=== PATIENT | male | born 1945 | race Caucasian/White ===

== ENCOUNTER 2020-03-03 16:45 | Emergency (ER) | payer OTHER, SELFPAY ==
[2020-03-03 16:46] VITALS: BP 129/77; PULSE 79; RESP 16; TEMP 36.3; O2SAT 98; BMI 29.2
[2020-03-03 16:47] VITALS: BP 129/77; PULSE 81; RESP 16; TEMP 36.3; O2SAT 98
--- NOTE | 2020-03-03 17:00 | RAD_ITS ---
STUDY: X-RAY CHEST REASON FOR EXAM: Male, 74 years old. TESTED POSITIVE FOR COVID A WEEK AGO. INCREASED SOB. TECHNIQUE: Single frontal view of the chest. COMPARISON: 06/07/2010 FINDINGS: Calcified granuloma right apex. The lungs are clear and expanded. There is no demonstrated pleural abnormality. Normal size heart. Normal mediastinum and nupur. Normal visualized pulmonary arteries. Normal visualized aortic arch and descending thoracic aorta. Normal visualized thoracic spine. Normal visualized ribs, clavicles, and shoulders. There is no demonstrated abnormality of the visualized soft tissue structures of the upper abdomen. RAD/Chest 1 View IMPRESSION: No acute disease Electronically Signed: Spenser Lam MD at 17:21 EST , Service support ,
--- NOTE | 2020-03-03 17:12 | EKG12_ITS ---
Test Reason : Blood Pressure : / mmHG Vent. Rate : 073 BPM Atrial Rate : 073 BPM P-R Int : 162 ms QRS Dur : 084 ms QT Int : 390 ms P-R-T Axes : 024 008 019 degrees QTc Int : 429 ms Normal sinus rhythm Normal ECG Confirmed by LULA REYNOSO, KRYSTAL ([id number]), medical editor GABRIELA MOYA ([id number]) on 03/04/2020 12:06:50 PM Referred By: PC Confirmed By:JYOTI COTTON MD
--- NOTE | 2020-03-03 17:29 | ED.VIS.GEN ---
History of Present Illness Chief Complaint: Cough Informant: Patient Onset: Weeks Maximum Severity: Mild Narrative: Cough chest congestion Covid positive for about 10 days Patient reports about 10 to 14 days ago he had a cough shortness of breath was seen at an outside facility reports he was found to be Covid positive he was discharged home and did not require admission. He did well at home, he indicates he is had slightly more cough and shortness of breath and he wanted to be evaluated today. He has had no fever he is eating and drinking well he has no exertional dyspnea, he has hypertension diabetes that are well controlled he does not feel as if he requires admission in fact he wants to go home but family wanted him evaluated Past Medical History - Allergies and Home Meds Allergies/Adverse Reactions: Allergies No Known Allergies Allergy (Verified 03/03/20 16:48) Primary Care Physician: Yrn Ruiz III, MD [Primary Care Provider] - Past Medical History: - Smoking Status: Never smoker Review of Systems ROS: - Includes as above General: Denies: Chills, Fever, Sweats Eyes: Denies: Visual changes - bilaterally, Diplopia ENT: Denies: Rhinorrhea, Sore throat Cardiovascular: Denies: Chest pain, Palpitations Respiratory: Reports: Dyspnea, Cough. Denies: Dyspnea on exertion Gastrointestinal: Denies: Abdominal pain, Nausea, Vomiting, Diarrhea, Melena, Hematochezia Genitourinary: Denies: Dysuria, Hematuria, Frequency Musculoskeletal: Denies: Back pain, Extremity Pain Skin: Denies: Rash, Wounds Neurological: Denies: Headache, Weakness, Numbness Physical Exam Vital Signs/Narrative: Vital Signs Temp Pulse Resp BP Pulse Ox 03/03/20 16:47 97.4 F L 81 16 129/77 H 98 03/03/20 16:46 97.4 F L 79 16 129/77 H 98 General: Well nourished, Well developed, No Acute Distress Head: Normocephalic, Atraumatic Eyes: Perrl, EOMI ENT: Moist mucous membranes, No rhinorrhea Neck: Supple, Nontender Cardiovascular: Regular rate, Regular rhythm, No murmurs Respiratory: No distress, CTA bilaterally, Chest nontender Abdomen: Soft, Nontender, Nondistended, Normal bowel sounds Back: Nontender, Normal Inspection Extremities: Nontender, No edema Skin: Normal color, No rash Neurological: Alert, Oriented x3, Cranial nerves II-XII grossly intact, Normal Strength, Normal Sensation Psychological: Normal affect, Normal Mood Diagnostic/Tx/Re-eval - Medical Decision Making Patient is in no distress he is afebrile his vital signs are unremarkable his pulse ox within normal range she speaking in full sentences he assures me he feels fine but he wants evaluation based on concerns of family, at this time screening labs chest x-ray observation Patient's ED screening evaluation labs are all generally unremarkable except his creatinine is 1.6 no others are available for review, his chest x-ray is unremarkable on reevaluation he states again he feels fine he wants to go home given that he is known to be Covid positive that he states he is eating and drinking well passing normal amounts of urine and stool I do not believe he would benefit from fluid bolus, he wants to go home to follow-up with outpatient providers and return for change in symptoms Home stable declined admission Final impression COVID-19 infection with prior positive study, cough ED Disposition - Plan for ED Patient: Disposition: Home or Assisted Living Diagnosis: COVID-19 virus infection Instructions: ED Upper Resp Infec Abx Tx Prescriptions: Albuterol Inhaler [Ventolin Hfa] 1 - 2 puff INHALATION Q4H PRN PRN #1 inhaler PRN Reason: Wheezing Prescription Printed Referrals: Yrn Ruiz III, MD [Primary Care Provider] -
[2020-03-03 17:45] LABS: Hemoglobin 12.3 g/dL (13.0-16.5); Mean Corp Hgb Conc 33.2 g/dL (32-36); Mean Corpuscular Hgb 29.9 pg (27.0-32.0); Mean Corpuscular Volume 89.8 fL (80-94); Mean Platelet Vol. 10.1 fl (6.2-12.0); POSITIVE COUNT YES; POSITIVE MORPHOLOGY YES; Platelet Count 195 K/mm3 (150-450); RBC Distribution Width CV 12.6 % (11.6-14.6); RBC Distribution Width SD 41.4 fl (35.1-43.9); Red Blood Count 4.12 M/mm3 (4.6-6.2)
[2020-03-03 17:59] LABS: Anion Gap 6 (5-15); BUN 28 mg/dL (7-18); BUN/Creat Ratio 17.2 RATIO (10-20); Calcium,Total 8.9 mg/dL (8.5-10.1); Chloride 105 mmol/L (98-107); Creatinine, Serum 1.63 mg/dL (0.70-1.30); Differential Indicated MANUAL DIFF; EST Glomerular Filtration Rate 44 mL/min (>60); Est Glom Filt Rate - Afr Amer 53 mL/min (>60); Estimated Creatinine Clearance 33.54 ml/min; Glucose 93 mg/dL (74-106); Potassium 4.6 mmol/L (3.5-5.1); Sodium Level 135 mmol/L (136-145)
[2020-03-03 18:21] LABS: Eosinophil 2 % (0-5); Lymphocyte 28 % (19-41); Metamyelocyte 1 % (0-1); Monocyte 14 % (0-10); Neutrophil-Band 8 % (0-5); Neutrophil-Segmented 47 % (47-70); Total Cells Counted 100 (MANUAL DIFF)
[2020-03-03 18:22] LABS: Absolute Lymphocyte Count 1.68 X10^3/uL (0.83-4.51); Lymphocyte # 1.68 X10^3/ul (4.0); Neutrophil # 4.95 X10^3/uL (2.7-7.7)
[2020-03-03 18:23] LABS: Reactive Lymphocyte RARE
[2020-03-03 18:24] LABS: Platelet Estimate ADEQUATE (ADEQ)
[2020-03-03 18:51] LABS: BNP,B-Type NATRIURETIC PEPTIDE 19.9 pg/mL (0-100)
[2020-03-03 18:58] VITALS: BP 113/60; PULSE 70; RESP 17; O2SAT 94
[2020-03-03 19:26] VITALS: BP 121/72; PULSE 70; RESP 18; O2SAT 95
[2020-03-04 13:03] LABS: Pathologist Review Reviewed
== END 2020-03-03 19:55 | disposition home or self-care (01) ==
PROVIDERS: Emergency Provider Emergency Medicine; PCP Family Medicine
DX: U07.1 COVID-19 (principal)
CPT/HCPCS: 71045; 80048; 83880; 84484; 85025; 93005; 99284; A4216

== ENCOUNTER → 2023-05-21 | Outpatient (CLI) | payer SELFPAY, OTHER ==
--- OUTSIDE RECORDS SUMMARY | 2023-05-21 16:50 | XMS RPT_ITS | CCD ---
Author Name Unknown Address [address] [facility] [address] [place] [address] Organization [facility] Care Team Providers Care Project Hire Name Role Phone SEFERINO YAO MD Primary Care Physician SEFERINO YAO MD Consulting Unavailable ORTIZ NORMAN Attending Unavailable ORTIZ NORMAN Primary Care Unavailable ORTIZ NORMAN Admitting Unavailable PROVIDER, UNKNOWN Consulting Unavailable PROVIDER, UNKNOWN Consulting Unavailable SEFERINO YAO MD Primary Care Unavailable SEFERINO YAO MD Attending Unavailable SEFERINO YAO MD Attending Unavailable SEFERINO YAO MD Primary Care Unavailable SEFERINO YAO MD Attending Unavailable SEFERINO YAO MD Primary Care Unavailable Medications Current Medications Medication Drug Class(es) Dates Sig (Normalized) Sig (Original) albuterol MDI (90 mcg/inh) CFC free inhalation aerosol (1 source) Start: 07-11-2021 take 2 puff(s) by inhalation every four hours as needed for wheezing albuterol MDI (90 mcg/inh) CFC free inhalation aerosol 2 puff(s), Inhalation, q4h, PRN as needed for wheezing, # 18 gram(s), 0 Refill(s), Pharmacy: [facility], Acute bronchitis, kg, 07/11/21 15:32:00 EDT, Dosing Weight Start Date: 07/11/21 Status: Ordered amLODIPine 10 mg oral tablet (5 sources) Dihydropyridine Calcium Channel Yue Start: 05-04-2022 End: 04-29-2023 amLODIPine 10 mg oral tablet Dose : 10 mg = 1 tab(s), Oral, Daily, Take 1 tablet by mouth once daily., # 90 tab(s), 3 Refill(s), Pharmacy: [id number], 161.5, cm, 05/04/22 9:58:00 EST, Height, kg, 05/04/22 9:58:00 EST, Dosing Weight Start Date: 05/04/22 Stop Date: 04/29/23 Status: Ordered Problems Problem Classification Problem Date Documented Da te Episodic/Chronic Acquired foot deformities (4 sources) Foot-drop; Translations: [Foot drop, left foot] Episodic Diabetes mellitus without complication (5 sources) Type 2 diabetes mellitus; Translations: [Type 2 diabetes mellitus without complication] 07-15-2021 Chronic Essential hypertension (5 sources) Hypertensive disorder; Translations: [Essential hypertension] 07-15-2021 Chronic Heart valve disorders (2 sources) Heart murmur 11-02-2022 Episodic Other connective tissue disease (2 sources) Foot pain 11-02-2022 Episodic Other connective tissue disease (1 source) Cramp in lower limb 02-15-2023 Episodic Other ear and sense organ disorders (3 sources) Hearing loss of right ear 05-04-2022 Chronic Other nervous system disorders (1 source) Mononeuropathy of lower limb; Translations: [Unspecified mononeuropathy of left lower limb] Chronic Other nervous system disorders (3 sources) Left leg peripheral neuropathy 08-18-2021 Chronic Other non-traumatic joint disorders (2 sources) Knee pain 11-02-2022 Episodic Peripheral and visceral atherosclerosis (4 sources) Peripheral vascular disease; Translations: [Peripheral vascular disease, unspecified] Chronic Spondylosis; intervertebral disc disorders; other back problems (1 source) Spinal stenosis 02-15-2023 Episodic Results Test Name Value Interpretation Reference Range Facil ity Vital Signs Date Time Vital Sign Value Performing Clinician Eileen champagne 08-14-2021 03:00-0400 Diastolic blood pressure 48 mm[Hg] DR SHAUNA CHOWDARY DO [facility] 08-14-2021 03:00-0400 Mean blood pressure 77 mm[Hg] DR SHAUNA CHOWDARY DO [facility] 08-14-2021 03:00-0400 Systolic blood pressure 136 mm[Hg] DR SHAUNA CHOWDARY DO [facility] 08-14-2021 02:11-0400 Diastolic blood pressure 66 mm[Hg] DR SHAUNA CHOWDARY DO [facility] 08-14-2021 02:11-0400 Heart rate 100 /min DR SHAUNA CHOWDARY DO [facility] 08-14-2021 02:11-0400 Mean blood pressure 95 mm[Hg] DR SHAUNA CHOWDARY DO [facility] 08-14-2021 02:11-0400 Respiratory rate 14 /min DR SHAUNA CHOWDARY DO [facility] 08-14-2021 02:11-0400 Systolic blood pressure 153 mm[Hg] DR SHAUNA CHOWDARY DO [facility] 08-14-2021 01:15-0400 Body temperature 97.7 [degF] DR SHAUNA CHOWDARY DO [facility] 08-14-2021 01:15-0400 Diastolic blood pressure 76 mm[Hg] DR SHAUNA CHOWDARY DO [facility] 08-14-2021 01:15-0400 Heart rate 98 /min DR SHAUNA CHOWDARY DO [facility] 08-14-2021 01:15-0400 Mean blood pressure 96 mm[Hg] DR SHAUNA CHOWDARY DO [facility] 08-14-2021 01:15-0400 Respiratory rate 10 /min DR SHAUNA CHOWDARY DO [facility] 08-14-2021 01:15-0400 Systolic blood pressure 136 mm[Hg] DR SHAUNA CHOWDARY DO [facility] Encounters Encounter Date Encounter Type Care Provider Facility Start: 05-11-2023 End: 05-11-2023 ambulatory SEFERINO REYNOSO [facility] Start: 03-30-2023 End: 03-31-2023 ambulatory SEFERINO YAO MD Facility:B Start: 03-30-2023 End: 03-30-2023 Patient encounter procedure SEFERINO YAO MD [facility] Start: 11-09-2022 End: 11-10-2022 ambulatory SEFERINO YAO MD Facility:B Start: 11-09-2022 End: 11-09-2022 Patient encounter procedure SEFERINO YAO MD [facility] Start: 10-26-2022 End: 10-27-2022 ambulatory SEFERINO YAO MD Facility:B Start: 10-26-2022 End: 10-26-2022 Patient encounter procedure SEFERINO YAO MD [facility] Start: 08-14-2021 End: 08-14-2021 Emergency department patient visit DR SHAUNA CHOWDARY DO [facility] Start: 04-07-2021 End: 04-07-2021 Patient encounter procedure SEFERINO YAO MD [facility] Procedures Date Procedure Procedure Detail Performing Clinician Appendectomy SEFERINO Triana Arthroplasty of knee SEFERINO YAO MD Back structure, excl uding neck (body structure) SEFERINO YAO MD Immunizations Immunization Date Immunization Notes Care Provider Fa cility 09-07-2020 SARS-CoV-2 mRNA (tozinameran) vaccine SEFERINO YAO MD [facility] 08-18-2020 SARS-CoV-2 mRNA (tozinameran) vaccine SEFERINO YAO MD [facility] Payers Date Payer Category Payer Unknown [id number] 1945 Unknown [id number] 1945 Unknown [id number] [id number] 1945 Unknown [id number] 1945 Unknown [id number] [id number] Unknown 130 Social History Date Type Detail Facility Start: 04-05-2021 Never smoked t obacco (finding) [facility] Sex Assigned At [facility] Functional Status Date Assessment Result Facility 08-14-[address] [facility] 08-14-[address] [facility] Mental Status Date Assessment Result Facility 08-14-2021 Mental Status [facility] 08-14-2021 Mental Status [facility] Evaluation + Plan note 03-29-2023 Radiology Note Date & Type Note Facility 03-29-2023 Evaluation + Plan note Future Scheduled TestsMRI Spine Lumbar w/ + w/o Contrast 03/29/23 [facility] Hospital Discharge instructions 08-14-2021 Note Date & Type Note Facility 08-14-2021 Hospital Discharg e instructions Patient Education 08/14/2021 04:07:44 Benign Paroxysmal Positional Vertigo Benign Paroxysmal Positional Vertigo Benign paroxysmal positional vertigo is a common condition. You feel as if the room is spinning after changing position, moving your head quickly, or even just rolling over in bed. Vertigo is a false feeling of motion plus disorientation that makes it seem as though the room is spinning. A vertigo attack may cause sudden nausea, vomiting, and heavy sweating. Severe vertigo causes a loss of balance. You may even fall down. Vertigo is caused by a problem with the inner ear. The inner ear is located behind the middle ear. It is a part of the balance center of the body. It contains small calcium particles within fluid-filled canals (semi-circular canals). These particles can move out of position. This may happen as a result of aging, head injury, or disease of the inner ear. Once that happens, moving your head in certain ways may cause the particles to stimulate the inner ear. This creates the feeling of vertigo. An episode of vertigo may last seconds, minutes, or hours. Once you are over the first episode of vertigo, it may never return. Sometimes symptoms return off and on for several weeks or longer. Home care Follow these guidelines when caring for yourself at home: Rest quietly in bed if your symptoms are severe. Change position slowly. There is usually 1 position that will feel best. This might be lying on 1 side or lying on your back with your head slightly raised on pillows. Until you have no symptoms, you are at a higher risk of falling. Let someone help you when you get up. Get rid of home hazards such as loose electrical cords and throw rugs. Don t walk in unfamiliar areas that are not lighted. Use night lights in bathrooms and kitchen areas. Do not drive or work with dangerous machinery for 1 week after symptoms go away. This is in case symptoms return suddenly. Take medicine as prescribed to relieve your symptoms. Unless another medicine was prescribed for nausea, vomiting, and vertigo, you may use [id number] motion sickness medicine. Examples of this include meclizine and dimenhydrinate. Follow-up care Follow up with your healthcare provider, or as directed. Tell your provider about any ringing in your ear or hearing loss. If you had a CT or MRI scan, a specialist will review it. You will be told of any new findings that may affect your care. When to seek medical advice Call your healthcare provider right away if any of these occur: Vertigo gets worse even after taking prescribed medicine Repeated vomiting even after taking prescribed medicine Weakness that gets worse Fainting Severe headache or unusual drowsiness or confusion Weakness of an arm or leg or 1 side of the face Trouble walking Trouble with speech or vision Seizure Trouble hearing Fever of 100.4 F (38 C) or higher, or as directed by your healthcare provider Fast heart rate Chest pain [id number] [employer]. [address] [place] [address]. All rights reserved. This information is not intended as a substitute for professional medical care. Always follow your healthcare professional's instructions. Follow Up Care 08/14/2021 01:16:15 With:CASSY THOMPSON DO Address: When:2-4 days With:SEFERINO YAO MD Address:Unknown When:2-4 days [facility] Clinical Note 03-04-2021 Note Date & Type Note Facility 03-04-2021 Note Patient Outreach (BRANDT TNAV) CINDY CAT ([id number]) 1945 M Date Time Provider Department 03/04/21 YOSEF PARKS During your visit today, we recorded the following information about you: Yosefolivier Parks Population Health Navigator 03/04/2021 11:12 AM Signed POPULATION HEALTH NAVIGATION OUTREACH Action/FYI I left a voice message re: pcp No care everywhere Contact made with patient or family member? NO Pt identified by name and : NO Outreach Outcome/Action Unable to reach patient: Left message Reason for Outreach Attribution: Provider Off-boarding Payer: No coverage found. Care Gap Reviewed:: Reminder: Reminder note to check Health Maintenance for items below Health Maintenance items due: COVID-19 VACCINE(1) Never done HEPATITIS C SCREENING Never done SHINGRIX VACCINE(1 of 2) Never done DTAP,TDAP,TD(2 - Tdap) due on 08/30/2015 DEPRESSION SCREENING due on 06/04/2018 DILATED RETINAL EXAM due on 07/18/2019 HBA1C due on 08/05/2020 INFLUENZA(1) due on 12/29/2020 ANNUAL PCP TEAM CHRONIC DISEASE VISIT due on 02/11/2021 BP CONTROLLED (<130/80) due on 02/11/2021 URINE ALBUMIN:CREATININE RATIO due on 02/04/2021 LDL CHOLESTEROL due on 02/04/2021 DIABETIC FOOT EXAM due on 02/11/2021 Advanced Directives Completed: Have you ever planned for future healthcare decisions with a power of geriatrics physician, living will, or advance directives? No. Please bring a copy to your next appointment or email to [email or web address] Referrals: N/A Message Sent to Practice: NO Navigation Signature: Yosef Parks Population Health Navigator March 04, 2021 11:11 AM Allergies As of Date: 03/04/2021 (No Known Allergies) Date Reviewed: 02/12/2020 [facility]ed by: [facility] LAUREN Jefferson - Fully Assessed Reason for Visit: Population Health Navigation Outreach [3910] Cmt: Offboarding Prescriptions as of 03/04/2021 - metFORMIN (GLUCOPHAGE) 500 mg tablet Take 1 tablet by mouth daily with dinner. - lisinopril (ZESTRIL, PRINIVIL) 20 mg tablet Take 1 tablet by mouth once daily. - hydroCHLOROthiazide 12.5 mg capsule Take 1 capsule by mouth once daily. - glimepiride (AMARYL) 2 mg tablet Take 1 tablet by mouth daily with breakfast. - atorvastatin (LIPITOR) 40 mg tablet Take 1 tablet by mouth once daily. For cholesterol. - spironolactone (ALDACTONE) 25 mg tablet Take 1 tablet by mouth once daily. - amLODIPine (NORVASC) 10 mg tablet Take 1 tablet by mouth once daily. - sildenafil (VIAGRA) 100 mg tablet Take 1 tablet by mouth as needed. TAKE 30-60 MINUTES BEFORE SEXUAL INTERCOURSE NEEDED. - CINNAMON BARK (CINNAMON ORAL) Take 2,000 mg by mouth twice daily. 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 Lumbar Disc Herniation with Radiculopathy [M51.*12/13/2009 Personal history of colonic polyps [Z86.010] 07/01/2012 Hyperlipidemia associated with type 2 diabetes *10/01/2013 Post-traumatic osteoarthritis of right knee [M1*11/25/2014 Senile cataract [H25.9] 02/01/2015 Vitreous floaters of both eyes [H43.393] 02/01/2015 Essential hypertension [I10] 02/01/2015 Controlled type 2 diabetes mellitus without com*07/17/2017 COVID-19 [U07.1] 02/24/2020 Encounter Status:Closed by TO POPULATION HEALTH NAVIGYOSEF MARTI on 03/04/21 [facility] Progress note 03-04-2021 Note Date & Type Note Facility 03-04-2021 Note HNO ID: [id number] Author: Yosef Gomez Health Navigdonya Service: ? Author Type: ? Type: Progress Notes Filed: 03/04/2021 11:12 AM Note Text: POPULATION HEALTH NAVIGATION OUTREACH Action/FYI I left a voice message re: pcp No care everywhere Contact made with patient or family member? NO Pt identified by name and : NO Outreach Outcome/Action Unable to reach patient: Left message Reason for Outreach Attribution: Provider Off-boarding Payer: No coverage found. Care Gap Reviewed:: Reminder: Reminder note to check Health Maintenance for items below Health Maintenance items due: COVID-19 VACCINE(1) Never done HEPATITIS C SCREENING Never done SHINGRIX VACCINE(1 of 2) Never done DTAP,TDAP,TD(2 - Tdap) due on 08/30/2015 DEPRESSION SCREENING due on 06/04/2018 DILATED RETINAL EXAM due on 07/18/2019 HBA1C due on 08/05/2020 INFLUENZA(1) due on 12/29/2020 ANNUAL PCP TEAM CHRONIC DISEASE VISIT due on 02/11/2021 BP CONTROLLED (<130/80) due on 02/11/2021 URINE ALBUMIN:CREATININE RATIO due on 02/04/2021 LDL CHOLESTEROL due on 02/04/2021 DIABETIC FOOT EXAM due on 02/11/2021 Advanced Directives Completed: Have you ever planned for future healthcare decisions with a power of geriatrics physician, living will, or advance directives? No. Please bring a copy to your next appointment or email to [email or web address] Referrals: N/A Message Sent to Practice: NO Navigation Signature: Yosef Parks Population Health Navigator March 04, 2021 11:11 AM [facility] Clinical Note 10-18-2020 Note Date & Type Note Facility 10-18-2020 Note Patient Outreach (AC CC) CINDY CAT ([id number]) 1945 M Date Time Provider Department 10/18/20 NO PCP [facility] During your visit today, we recorded the following information about you: Zoila James 10/18/2020 11:42 AM Signed POPULATION HEALTH NAVIGATION OUTREACH Action/FYI PT has no VM or My Chart CORINA Contact made with patient or family member? NO Pt identified by name and : NO Outreach Outcome/Action Unable to reach patient: Phone number not valid / voicemail full Reason for Outreach Care Gap or Scheduling/Wellness visits Payer: No coverage found. Care Gap Reviewed:: Colorectal Cancer Screening Diabetic Eye Exam Reminder: Reminder note to check Health Maintenance for items below Health Maintenance items due: COVID-19 VACCINE(1) Never done DEPRESSION SCREENING due on 06/04/2018 DILATED RETINAL EXAM due on 07/18/2019 HBA1C due on 08/05/2020 : Zoila Jacksonrk October 18, 2020 11:41 AM Allergies As of Date: 10/18/2020 (No Known Allergies) Date Reviewed: 02/12/2020 Reviewed by: Terri ([facility]) LAUREN Jefferson - Fully Assessed Reason for Visit: Population Health Navigation Outreach [3910] Cmt: deferred care Prescriptions as of 10/18/2020 Sig: HYDROCHLOROTHIAZIDE 12.5 MG C* Take 1 capsule by mouth once * GLIMEPIRIDE 2 MG TABLET Take 1 tablet by mouth daily * ATORVASTATIN 40 MG TABLET Take 1 tablet by mouth once d* SPIRONOLACTONE 25 MG TABLET Take 1 tablet by mouth once d* AMLODIPINE 10 MG TABLET Take 1 tablet by mouth once d* LISINOPRIL 20 MG TABLET Take 1 tablet by mouth once d* METFORMIN 500 MG TABLET Take 1 tablet by mouth daily * SILDENAFIL 100 MG TABLET Take 1 tablet by mouth as nee* CINNAMON ORAL Take 2,000 mg by mouth twice * Problem List As Of Date 10/18/2020 Noted Resolved Nontraumatic rupture of other tendons of foot a*07/10/2006 10/01/2013 Closed fracture of calcaneus [S92.009A] 07/10/2006 10/01/2013 HYPERLIPIDEMIA NEC/NOS [E78.5] 09/10/2006 10/01/2013 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 Lumbar Disc Herniation with Radiculopathy [M51.*12/13/2009 Personal history of colonic polyps [Z86.010] 07/01/2012 Hyperlipidemia associated with type 2 diabetes *10/01/2013 Post-traumatic osteoarthritis of right knee [M1*11/25/2014 Senile cataract [H25.9] 02/01/2015 Vitreous floaters of both eyes [H43.393] 02/01/2015 Essential hypertension [I10] 02/01/2015 Controlled type 2 diabetes mellitus without com*07/17/2017 COVID-19 [U07.1] 02/24/2020 Encounter Status:Closed by ZOILA BREWER on 10/18/20 [facility] Progress note 10-18-2020 Note Date & Type Note Facility 10-18-2020 Note HNO ID: [id number] Author: Zoila James Service: ? Author Type: ? Type: Progress Notes Filed: 10/18/2020 11:42 AM Note Text: POPULATION HEALTH NAVIGATION OUTREACH Action/FYI PT has no VM or My Chart CORINA Contact made with patient or family member? NO Pt identified by name and : NO Outreach Outcome/Action Unable to reach patient: Phone number not valid / voicemail full Reason for Outreach Care Gap or Scheduling/Wellness visits Payer: No coverage found. Care Gap Reviewed:: Colorectal Cancer Screening Diabetic Eye Exam Reminder: Reminder note to check Health Maintenance for items below Health Maintenance items due: COVID-19 VACCINE(1) Never done DEPRESSION SCREENING due on 06/04/2018 DILATED RETINAL EXAM due on 07/18/2019 HBA1C due on 08/05/2020 : Zoila James October 18, 2020 11:41 AM [facility] Evaluation + Plan note Note Date & Type Note Facility Evaluation + Plan note No data available for this section [facility] Evaluation + Plan note Note Date & Type Note Facility Evaluation + Plan note Future Appointments Appointment Date:11/02/2022 10:30:00 AM Scheduled Provider:SEFERINO YAO MD Location:[facility] Appointment Type:PC OV [facility] Hospital Discharge instructions Note Date & Type Note Facility Hospital Discharge instructions No data available for this section [facility] Progress note Note Date & Type Note Facility Progress note No data available for this section [facility] Summary Purpose Family History No Family History Records Found No data available for this section No Family History Records FoundNo Family History Records FoundNo Family History Records Found Advance Directives No Advanced Directives Records FoundNo Advanced Directives Records FoundNo Advanced Directives Records FoundNo Advanced Directives Records Found Additional Source Comments (unrecognized sect ion and content) No Status Records FoundNo Status Records FoundNo Status Records FoundNo Status Records Found INFORMATION SOURCE (unrecogn ized section and content) DATE CREATED AUTHOR AUTHOR'S ORGANIZ ATION 04/26/2023 [facility] DATE CREATED AUTHOR AUTHOR'S ORGANIZ ATION 05/12/2023 [facility] DATE CREATED AUTHOR AUTHOR'S ORGANIZ ATION 05/16/2023 [facility] ([place] Care Team (unrecognized sect ion and content) Personnel Name: SEFERINO YAO MD Address: [address] [place] [address]- Care Team Personnel Name: SEFERINO YAO MD Position: P4 Physician - Primary Care Member Role: Primary Care Physician Address: Address: [address] [place] [address] Care Team Related Persons Name: CRISTOBAL NUNES Address: Home [address] [place] [address] [phone] Address: Temporary [address] [place] [address] [phone] Name: FRANCESCA CAT Care Team Personnel Name: SEFERINO YAO MD Position: P4 Physician - Primary Care Member Role: Primary Care Physician Address: Address: [address] [place] [address] Care Team Related Persons Name: MANJU CRISTOBAL Address: Home [address] [place] [address] [phone] Address: Temporary [address] [place] [address] [phone] Name: FRANCESCA CAT Care Team Personnel Name: SEFERINO YAO MD Position: P4 Physician - Primary Care Member Role: Primary Care Physician Address: Address: [address] [place] [address] Care Team Related Persons Name: MANJU CRISTOBAL Address: Home [address] [place] [phone] Address: [address] [phone] Name: FRANCESCA CAT FOR RECORDS PERTAINING TO PATIENTS WHO ARE OR HAVE BEEN ENROLLED IN A CHEMICAL DEPENDENCY/SUBSTANCEABUSE PROGRAM, SOME INFORMATION MAY BE OMITTED. This clinical summary was aggregated from multiple sources. Caution should be exercised in using it in the provision of clinical care. This summary normalizes information from multiple sources, and as a consequence, information in this document may materially change the coding, format and clinical context of patient data. In addition, data may be omitted in some cases. CLINICAL DECISIONS SHOULD BE BASED ON THE PRIMARY CLINICAL RECORDS. [employer] [facility]. provides no warranty or guarantee of the accuracy or completeness of information in this document.
--- NOTE | 2023-05-21 17:00 | CT_ITS ---
STUDY: CT LUMBAR SPINE WITH CONTRAST REASON FOR EXAM: Male, 77 years old. Chronic low back pain. History of prior lumbar surgery. RADIATION DOSAGE (If Supplied By Facility): CTDIvol = ( 17.40 ) mGy, DLP = ( 601.27 ) mGycm TECHNIQUE: The patient was scanned in a multi detector CT scanner. High resolution transaxial imaging was performed following the intravenous administration of IV 100mL Isovue-300. Images were obtained from L1 to S1 vertebral level. Sagittal and coronal images were reconstructed. Individualized dose optimization techniques were used for this CT. COMPARISON: Comparison is made with prior radiographs dated May 02, 2023. FINDINGS: Mild degree of increased markings at the lung bases suggestive of atelectasis. Normal lumbar lordosis. There is no substantial scoliosis. Multilevel spondylosis. L1-2: Mild degree of disc space narrowing and disc degeneration. Mild degree of spondylosis. L2-3: Moderate degree of disc space narrowing and disc degeneration. Facet joint osteoarthritis and hypertrophy. Bilateral neural foraminal stenosis left greater than right. L3-4: Moderate degree of disc space narrowing. Spondylosis. Facet joint osteoarthritis. Mild degree of bilateral neural foraminal stenosis right greater than left. L4-5: Marked degree of disc space narrowing. Grade 2 anterior listhesis of L4 on L5 due to facet joint osteoarthritis and hypertrophy. 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 Moderate to marked degree of central canal stenosis due to the anterolisthesis. Bilateral neural foraminal stenosis. L5-S1: Marked degree of disc space narrowing and disc degeneration. Spondylosis. Facet joint osteoarthritis. Atherosclerotic calcification of the abdominal aorta. Degenerative changes of the sacroiliac joints bilaterally. CT/Spine Lumbar WITH Contrast IMPRESSION: Multilevel degenerative changes, as described above. Anterolisthesis of L4 on L5 due to spondylolysis of the pars interarticularis causing a marked degree of central canal stenosis. Electronically Signed: Sidney Brock MD at 13:44 EST ,
[2023-05-21 17:16] LABS: CREATININE FINGERSTICK 1.4 mg/dL (0.70-1.30)
== END | disposition home or self-care (01) ==
PROVIDERS: PCP Family Medicine; Referring Provider Orthopaedic Surgery; Visit Provider Orthopaedic Surgery
DX: M48.061 Spinal stenosis, lumbar region without neurogenic claudication (principal)
CPT/HCPCS: 72132; Q9967

== ENCOUNTER 2024-10-21 22:39 | Observation (INO) | payer OTHER, SELFPAY ==
[2024-10-21 22:44] VITALS: BP 163/86; PULSE 69; RESP 18; TEMP 36.9; O2SAT 97; BMI 29.7
--- NOTE | 2024-10-21 23:01 | ED.VIS.CHEST ---
HPI History of Present Illness Chief Complaint: Chest Pain Informant: patient Onset/Context/Timing Onset: Today and Hours (3) Activity at onset: gradual Timing: Continuous Quality: Positive for Aching Location: Left Chest and - (Left arm) Worsened By: Nothing Relieved By: Nothing Associated Symptoms: Positive for Nausea, Dyspnea and Cough; Negative for Vomiting, Diaphoresis, Fever, Lightheadedness, Acid Reflux or Palpitations Narrative Narrative: Patient presents with left-sided chest pain that began approximately 3 hours prior to arrival. Patient states it has improved. Patient states the pain was going down his left arm. Patient admits to some paresthesias in the fingers of his left hand. Patient states he still has some paresthesias. Patient states his pain has improved. Patient admits to some nausea but denies any vomiting. Patient admits to some shortness of breath and cough. Patient admits to some lightheadedness. CVD Risk Factors: Positive for Hypertension, Diabetes, Hypercholesterolemia and Family History 1' </=55; Negative for Smoking PE Risk Factors: Positive for Prior DVT or PE; Negative for Recent Travel/Surgery, Recent Immobilization, Cancer or OCP + Smoking + >/=35 [facility] Medical History History of venous thromboembolism CAD (coronary artery disease) HLD (hyperlipidemia) Spinal stenosis at L4-L5 level Low back pain Aortic valve disease Back pain Neck pain Hypertension Home Medications ?Medication ?Instructions ?Recorded ?Last Taken ?Type hydrochlorothiazide 25 mg tablet 25 mg PO DAILY 05/13/15 Unknown History lisinopril 20 mg tablet 20 mg PO DAILY 05/13/15 Unknown History glimepiride 4 mg tablet 4 mg PO DAILY 05/02/23 Unknown History amlodipine 5 mg tablet 5 mg PO DAILY 10/21/24 Unknown History apixaban 1 tab PO BID 10/21/24 Unknown History atorvastatin 40 mg tablet 40 mg PO QHS 10/21/24 Unknown History carvedilol 25 mg tablet 25 mg PO BID 10/21/24 Unknown History Allergy/AdvReac Type Severity Reaction Status Date / Time No Known Allergies Allergy Verified 10/21/24 22:40 Family History Mother Family history of heart attack Heart disease CAD (coronary artery disease) Hypertension Father Family history of heart attack Heart disease CAD (coronary artery disease) Hypertension Surgical History Hx of heart artery stent History of cholecystectomy History of back surgery History of appendectomy History of hernia repair Social History household members: spouse Smoking Status: Never smoker alcohol intake: never substance use type: does not use ROS ROS ED Constitutional Constitutional ED: Reports chills and fever(s) Eyes Eyes: Denies blurry vision or change in vision ENT ENT ED: Denies rhinorrhea or sore throat Cardiovascular Cardiovascular: Reports chest pain; Denies palpitations Respiratory/Chest Respiratory/Chest: Reports cough and dyspnea Gastrointestinal Gastrointestinal: Denies nausea or vomiting Genitourinary Genitourinary ED: Denies dysuria or hematuria Musculoskeletal Musculoskeletal: Denies back pain or neck pain Integumentary Denies abscess or rash Neurologic Neurologic: Reports paresthesias LUE (Left fingers); Denies headache(s) or weakness Allergic/Immunologic Allergic/Immunologic ED: Denies mouth swelling or urticaria EXAM Physical Exam Const Vital Signs: 10/21/24 22:44 10/21/24 22:44 10/21/24 23:21 Temperature 98.4 F Temperature Source Oral Pulse Rate 69 Respiratory Rate 18 Respiratory Effort Normal Non-Labored Respiratory Pattern Normal Blood Pressure 163/86 H Blood Pressure Mean 111 Pulse Ox 97 98 Oxygen Delivery Method Room Air Room Air 10/21/24 23:25 10/21/24 23:30 10/22/24 00:00 Temperature Temperature Source Pulse Rate 66 67 61 Respiratory Rate 18 16 Respiratory Effort Respiratory Pattern Blood Pressure 145/76 H 117/67 145/69 H Blood Pressure Mean 83 94 Pulse Ox 95 96 Oxygen Delivery Method Room Air Room Air 10/22/24 00:38 Temperature 97.8 F Temperature Source Pulse Rate 65 Respiratory Rate 16 Respiratory Effort Respiratory Pattern Blood Pressure 136/62 H Blood Pressure Mean 86 Pulse Ox 95 Oxygen Delivery Method Positive well nourished and well developed General Appearance ED: well developed and NAD HEENT Reports moist mucous membranes normocephalic Neck supple and no JVD Resp normal respiratory effort and clear to auscultation bilaterally Cardio regular rate and regular rhythm GI soft to palpation, non-tender and non-distended Neuro oriented x3, CN's II-XII intact bilaterally and no sensory deficits noted Sensorium / Orientation: awake and alert Motor Exam: strength 5/5 throughout Psych mental status grossly normal Heart Score History: Moderately Suspicious ECG: Nonspecific Repolarization Age: >/= 65 years Risk Factors: >/= 3 Risk Factors or History of CAD Troponin: >1 - <3 Normal Limit Score: 7 MDM MDM MDM Narrative Medical decision making narrative: Differential diagnosis includes cardiac dysrhythmia, cardiac ischemia, electrolyte abnormality, pneumonia, bronchitis, pulmonary embolism, gastroesophageal reflux disease, and anxiety. EKG will be obtained to assess for cardiac dysrhythmia and cardiac ischemia. Chest x-ray will be obtained to assess for pneumonia and bronchitis. CBC will be obtained to assess for leukocytosis and anemia. Basic metabolic profile will be obtained to assess for electrolyte abnormality and renal function. High-sensitivity troponin will be obtained to assess for cardiac ischemia. 2-hour repeat high-sensitivity troponin will be obtained to assess for ongoing cardiac ischemia. D-dimer will be obtained to assess for pulmonary embolism. Lab Data Attestation: I reviewed the patient's lab results. Lab results narrative: CBC was reviewed and was within normal limits. Basic metabolic profile was reviewed. Glucose was slightly elevated at 146. The remainder was essentially within normal limits. D-dimer was reviewed and was normal at 0.42. High-sensitivity troponin was reviewed and was elevated at 56. Labs: Laboratory Results - last 24 hr 10/21/24 10/22/24 22:53 00:53 WBC 8.3 RBC 4.46 L Hgb 13.2 Hct 38.3 L MCV 85.9 MCH 29.6 MCHC 34.5 RDW Std Deviation 39.8 RDW Coeff of Francy 12.6 Plt Count 141 L MPV 11.5 Immature Gran % (Auto) 1.000 H Neut % (Auto) 62.0 Lymph % (Auto) 25.4 Day % (Auto) 9.5 Eos % (Auto) 1.6 Baso % (Auto) 0.5 Absolute Neuts (auto) 5.2 Absolute Lymphs (auto) 2.12 Nucleated RBC % 0 D-Dimer Quant (PE/DVT) 0.42 Sodium 139 Potassium 3.6 Chloride 102 Carbon Dioxide 24.7 Anion Gap 12 BUN 20 H Creatinine 0.98 Estim Creat Clear Calc 57.98 Est GFR (MDRD) Non-Af 78 BUN/Creatinine Ratio 20.1 H Glucose 146 H Calcium 9.2 Magnesium 2.1 Troponin T High Sens 56 H* Troponin T Hi Sens 2 Hr 46 H Procalcitonin 0.03 Radiography Chest X-Ray - ED: 2 View, Read by ED Physician, Read by Radiologist and No Acute Disease Diagnostic Testing: Clinical Impression(s) from Imaging Studies Chest X-Ray 10/21/24 23:40 IMPRESSION: Possible early right lower lobe infiltrates. Reading Location: [place] [id number] [place] and lateral chest x-ray was obtained. There are 2 views. On my independent interpretation, lung trejo show chronic changes. There is normal cardiac silhouette. Bony thorax is normal. There is no acute process noted. Radiologist also interpreted the x-ray and notes there could be possible early right lower lobe infiltrates. EKG Initial EKG: Attestation: I personally reviewed and interpreted this EKG as follows: Interpretation: Sinus Rhythm (69), Inverted T-Waves (I and aVL) and Non-Specific ST Changes Comments: EKG was obtained. On my independent interpretation, it showed a normal sinus rhythm with a rate of 69.. NC interval, QRS interval, and QTc intervals were all normal. [place] was normal. There are inverted T waves in leads I and aVL. There are nonspecific ST-T wave changes noted. Prior EKG tracings: available for review Prior: Changed (Compared to previous EKG dated 03/03/2020, the T wave inversion in leads I and aVL are new) Management Discussion w/another healthcare provider: Hospitalist Treatment and Re-Evaluation :: Patient was given aspirin and sublingual nitroglycerin. Patient states his pain improved after 1 sublingual nitroglycerin tablet. Patient denies any pain at the present time. Since patient does not have any cough or fever, I do not feel that the possible infiltrates in the right lower lobe are consistent with pneumonia. Patient was advised of his findings. Patient has a HEART score of 7. Because of this, I recommended admission to the hospital. Case was discussed with the hospitalist. She will admit the patient to her service. Patient understood and was agreeable with the plan. All questions were answered. Discharge Plan Dx/Rx/DC Orders Clinical Impression: Chest pain, Elevated troponin, Elevated blood pressure reading Disposition Disposition: Acute Care Hospital [facility] Discharge Date/Time: 10/22/24 02:00
--- NOTE | 2024-10-21 23:19 | EKG12_ITS ---
Test Reason : CP Blood Pressure : */* mmHG Vent. Rate : 69 BPM Atrial Rate : 69 BPM P-R Int : 190 ms QRS Dur : 84 ms QT Int : 414 ms P-R-T Axes : 68 7 98 degrees QTcB Int : 443 ms Normal sinus rhythm Poor R-wave progression ; consider septal infarct, lead placement, or normal variant T wave abnormality, consider lateral ischemia Abnormal ECG When compared with ECG of 03-Mar-2020 17:53, Non-specific change in ST segment in Lateral leads T wave inversion now evident in Lateral leads Confirmed by TONY REYNOSO, JAROD ([id number]), editor in chief [facility] ([id number]) on 10/23/2024 9:54:15 AM Referred By: PAT Confirmed By: JAROD JIMENEZ MD
[2024-10-21 23:21] VITALS: O2SAT 98
[2024-10-21] MEDS: Aspirin 81 MG TAB.CHEW 324 MG PO (23:24)
[2024-10-21 23:25] VITALS: BP 145/76; PULSE 66
[2024-10-21] MEDS: Nitroglycerin SL (ED/IMG/CATH) 0.4 MG TABLET SL (23:25)
[2024-10-21 23:30] VITALS: BP 117/67; PULSE 67; RESP 18; O2SAT 95
[2024-10-21 23:36] LABS: Absolute Lymphocyte Count 2.12 X10^3/uL (0.83-4.51); Absolute Neutrophil Count 5.2 X10^3/uL (2.0-7.7); Basophil# 0.04 X10^3/uL; Basophil% 0.5 % (0-1); Eosinophil# 0.13 X10^3/uL; Eosinophils% 1.6 % (0-5); Hematocrit 38.3 % (40-54); Hemoglobin 13.2 g/dL (13.0-16.5); Lymphocyte # 2.12 X10^3/ul (0.83-4.51); Lymphocyte % 25.4 % (19-41); Mean Corp Hgb Conc 34.5 g/dL (32-36); Mean Corpuscular Hgb 29.6 pg (27.0-32.0); Mean Corpuscular Volume 85.9 fL (80-94); Mean Platelet Vol. 11.5 fl (6.2-12.0); Monocyte# 0.79 X10^3/uL; Monocyte% 9.5 % (0-10); NRBC Flagged by Analyzer 0 % (0-5); Neutrophil # 5.18 X10^3/uL (2.7-7.7); Platelet Count 141 K/mm3 (150-450); RBC Distribution Width CV 12.6 % (11.6-14.6); RBC Distribution Width SD 39.8 fl (35.1-43.9); Red Blood Count 4.46 M/mm3 (4.6-6.2); White Blood Count 8.3 K/mm3 (4.4-11.0)
--- NOTE | 2024-10-21 23:40 | RAD_ITS ---
PROCEDURE: CHEST PA AND LATERAL 10/21/2024 REASON FOR EXAM: CHEST PAIN TECHNIQUE: CHEST PA AND LATERAL COMPARISON: 03/03/2020 FINDINGS: The lungs are expanded. Right lower lobe haziness is seen possibly early pneumonic infiltrates. There is no demonstrated pleural abnormality. Normal heart and pericardium. Normal mediastinum and nupur. Normal visualized pulmonary arteries. Normal visualized aortic arch and descending thoracic aorta. Normal visualized thoracic spine. Normal visualized ribs, clavicles, and shoulders. There is no demonstrated abnormality of the visualized soft tissue structures of the upper abdomen. RAD/Chest PA and Lateral IMPRESSION: Possible early right lower lobe infiltrates. [facility]
[2024-10-21 23:49] LABS: D-Dimer Quantitative (DVT/PE) 0.42 FEU/ug/m (0.27-0.49)
[2024-10-22] VITALS (11 sets, daily range): BP systolic 136–183; BP diastolic 62–107; PULSE 59–70; RESP 16–18; TEMP 36.3–36.7; O2SAT 95–99; BMI 29.5
[2024-10-22 00:04] LABS: Anion Gap 12 (5-15); BUN 20 mg/dL (4-19); BUN/Creat Ratio 20.1 RATIO (10-20); Calcium,Total 9.2 mg/dL (7.6-11.0); Carbon Dioxide 24.7 mmol/L (21.0-32.0); Chloride 102 mmol/L (98-108); Creatinine, Serum 0.98 mg/dL (0.70-1.20); EST Glomerular Filtration Rate 78 (>60); Estimated Creatinine Clearance 57.98 ml/min (50-250); Glucose 146 mg/dL (70-99); Potassium 3.6 mmol/L (3.3-5.1); Sodium Level 139 mmol/L (133-145)
[2024-10-22 00:06] LABS: Troponin T High Sensitivity 56 ng/L (<=22)
--- OUTSIDE RECORDS SUMMARY | 2024-10-22 00:53 | XMS RPT_ITS | CCD ---
Author Organization [facility] CliniSymd Care Team Providers Care Cell Liner Name Role Phone SEFERINO HERNANDEZ MD Primary Care Physician SEFERINO HERNANDEZ MD Consulting Unavailable ORTIZ VALDZE Attending Unavailable ORTIZ VALDEZ Primary Care Unavailable ORTIZ VALDEZ Admitting Unavailable PROVIDER, UNKNOWN Consulting Unavailable PROVIDER, UNKNOWN Consulting Unavailable Dr. Jerry Parmar Attending Provider Dr. Husam Harman Attending Provider Seferino Hernandez Primary Care Provider Kaylee Alvarez MD, Guerda Unavailable [phone] Seferino Hernandez MD Primary Care Provider GUERDA PAGE Attending Unavailable SEFERINO HERNANDEZ Primary Care Unavailable UGERDA PAGE Admitting Unavailable GUERDA PAGE Attending Unavailable ESFERINO HERNANDEZ Primary Care Unavailable REE MENG Consulting Unavailable SEFERINO HERNANDEZ MD Attending Unavailable SEFERINO HERNANDEZ MD Primary Care Unavailable SEFERINO HERNANDEZ MD Primary Care Unavailable DR ARMEN SWEENEY MD Admitting Unairina BRITT MD, DR MAXWELL Attending Unavailable SEFERINO HERNANDEZ MD Attending Unavailable SEFERINO HERNANDEZ MD Primary Care Unavailable LORE MARQUES CNP Attending UnavailSEFERINO Carrasco MD Primary Care Unavailable SEFERINO HERNANDEZ MD Attending Unavailable SEFERINO HERNANDEZ MD Primary Care Unavailable Seferino Hernandez MD Primary Care Provider Seferino Hernandez MD Primary Care Provider AMANDEEP VILLANUEVA Attending Unavailab CHRISTINA Vila Referring Unavailable SEFERINO HERNANDEZ Primary Care Unavailable LORE RIVAS Attending Unavailable CHRISTINA VALENTINE Referring Unavailable SEFERINO HERNANDEZ Primary Care Unavailable LORE MARQUES Referring Unavailable SEFERINO HERNANDEZ Primary Care Unavailable LUIS DONAHUE Attending Unavailable LUIS DONAHUE Referring Unavailable SEFERINO HERNANDEZ Primary Care Unavailable LUIS DONAHUE Referring Unavailable SEFERINO HERNANDEZ Primary Care Unavailable LUIS DONAHUE Attending Unavailable LUIS DONAHEU Referring Unavailable SEFERINO HERNANDEZ Primary Care Unavailable LUIS DONAHUE Referring Unavailable SEFERINO HERNANDEZ Primary Care Unavailable Medications Current Medications Medication Drug Class(es) Dates Sig (Normalized) Sig (Original) acetaminophen 325 mg oral capsule (15 sources) Start: 07-03-2023 acetaminophen 325 mg oral capsule Dose : 325 mg = 1 cap(s), Oral, q6h, PRN as needed for pain, # 20 cap(s), 0 Refill(s) Start Date: 07/03/23 Status: Ordered Start: 06-21-2023 End: 06-23-2023 take 1 tablet by mouth every six hours as needed for pain and fever and headache acetaminophen (Tylenol) tablet 650 mg Start: 06-20-2023 End: 06-21-2023 take 1 tablet by mouth every six hours acetaminophen (Tylenol) tablet 1,000 mg Start: 06-19-2023 End: 06-20-2023 take 1 tablet by mouth every six hours 650 mg, Oral, Every 6 hours, First dose on Sun06/19/23 at 1745, Phase II/On Unit, Maximum dose of acetaminophen is 4000 mg from all sources in 24 hours. Start: 06-19-2023 End: 07-23-2023 take 1 tablet by mouth every eight hours as needed for pain and pain acetaminophen (Tylenol 8 Hour) 650 MG ER tablet Take 1 tablet (650 mg) by mouth every 8 hours as needed for mild pain (1-3) or moderate pain (4-6) (take as needed for pain). Do not crush, chew, or split. 90 tablet 0 06/23/2023 07/23/2023 Active Start: 06-19-2023 End: 06-19-2023 acetaminophen (Tylenol) tabl et 1,000 mg albuterol MDI (90 mcg/inh) CFC free inhalation aerosol (1 source) Start: 07-11-2021 take 2 puff(s) by inhalation every four hours as needed for wheezing albuterol MDI (90 mcg/inh) CFC free inhalation aerosol 2 puff(s), Inhalation, q4h, PRN as needed for wheezing, # 18 gram(s), 0 Refill(s), Pharmacy: [facility], Acute bronchitis, kg, 07/11/21 15:32:00 EDT, Dosing Weight Start Date: 07/11/21 Status: Ordered amLODIPine 5 mg oral tablet (20 sources) Dihydropyridine Calcium Channel Ruchi Start: 08-10-2023 take 1 tablet by mouth once daily amLODIPine (Norvasc) 5 mg tablet Take 1 tablet (5 mg) by mouth once daily. 08/10/2023 Active Start: 05-13-2015 End: 09-04-2023 take 10 mg by mouth once daily 10 mg, Oral, Daily, Fir st dose on Sun06/20/23 at 0800 apixaban 5 mg oral tablet (6 sources) Factor Xa Inhibitor Start: 10-16-2023 take 1 tablet by mouth twice daily apixaban (Eliquis) 5 mg tablet Indications: pulmonary thromboembolism Take 1 tablet (5 mg) by mouth 2 times a day. 180 tablet 3 10/16/2023 Active Start: 08-16-2023 take 1 tablet by grover th twice daily apixaban (Eliquis) 5 mg tablet Indications: pulmonary thromboembolism Take 1 tablet (5 mg) by mouth 2 times a day. 60 tablet 2 08/16/2023 Active aspirin 81 mg chewable tablet (3 sources) Platelet Aggregation Inhibitor, Nonsteroidal Anti-inflammatory Drug Start: 07-07-2023 End: 07-01-2024 aspirin 81 mg chewable tablet Chew 1 tablet (81 mg). 07/07/2023 09/04/2023 Discontinued (Med List Cleanup) take 1 tablet by mouth once troy y aspirin 81 mg EC tablet Take 1 tablet (81 mg) by mouth once daily. Active atorvastatin 40 mg oral tablet (7 sources) HMG-CoA Reductase Inhibitor Start: 07-07-2023 End: 09-05-2023 take 1 tablet by mouth once daily atorvastatin (Lipitor) 40 mg tablet Take 1 tablet (40 mg) by mouth once daily. 08/09/2023 Active Start: 04-05-2021 End: 03-31-2022 atorvastatin 40 mg oral tabl et Dose : 40 mg = 1 tab(s), Oral, Daily, Take 1 tablet by mouth once daily. For cholesterol., # 90 tab(s), 3 Refill(s), Pharmacy: [id number] Start Date: 04/05/21 Stop Date: 03/31/22 Status: Ordered Atropine (1 source) Anticholinergic, Cholinergic Muscarinic Antagonist Start: 08-17-2023 0.25 mg, intravenous, Once in imaging, Starting on Sun08/17/23 at 1115, For 6 doses, CV Medications, Atropine should not be administered if the patient has a history of prostate problems, urinary retention, paralytic ileus, or myasthenia gravis. Atropine should be avoided in a patient having frequent PVCs or runs of bigeminy with the dobutamine infusion. Atropine administration in patient with a history of glaucoma: - Intravenous atropine (up to 2 mg) MAY be administered in patients who have received ophthalmic care/examination within the preceding 18 months OR have undergone surgery for the treatment of glaucoma. Patients that have UNTREATED narrow angle glaucoma are at risk and should NOT receive atropine. carvedilol 25 mg oral tablet (9 sources) alpha-Adrenergic Ruchi, beta-Adrenergic Ruchi Start: 08-06-2024 End: 08-06-2025 take 1 tablet by mouth twice daily carvedilol (Coreg) 25 mg tablet Indications: Coronary artery disease involving [place] coronary artery of [place] heart without angina pectoris , Cardiomyopathy, idiopathic (Multi) , Nonrheumatic aortic valve stenosis , Single subsegmental pulmonary embolism without acute cor pulmonale , Ischemic cardiomyopathy , PAF (paroxysmal atrial fibrillation) (Multi) Take 1 tablet (25 mg) by mouth 2 times daily (morning and late afternoon). 60 tablet 08/06/2024 08/06/2025 Active Start: 03-06-2024 End: 03-06-2025 take 1 tablet by mouth twice daily carvedilol (Coreg) 12.5 mg tablet Indications: Coronary artery disease involving [place] coronary artery of [place] heart without angina pectoris , Cardiomyopathy, idiopathic (Multi) , Nonrheumatic aortic valve stenosis , Single subsegmental pulmonary embolism without acute cor pulmonale , Ischemic cardiomyopathy , PAF (paroxysmal atrial fibrillation) (Multi) Take 1 tablet (12.5 mg) by mouth 2 times daily (morning and late afternoon). 60 tablet 11 03/06/2024 08/06/2024 Discontinued (Med List Cleanup) Start: 09-04-2023 End: 09-03-2024 take 1 tablet by mouth twice daily carvedilol (Coreg) 6.25 mg tablet Indications: Coronary artery disease involving [place] coronary artery of [place] heart without angina pectoris , Cardiomyopathy, idiopathic (Multi) , Nonrheumatic aortic valve stenosis , Single subsegmental pulmonary embolism without acute cor pulmonale Take 1 tablet (6.25 mg) by mouth 2 times daily (morning and late afternoon). 180 tablet 3 12/04/2023 03/06/2024 Discontinued (Med List Cleanup) Start: 07-07-2023 End: 09-05-2023 Coreg 3.125 mg oral tablet D ose : 3.125 mg = 1 tab(s), Oral, BIDM, # 60 tab(s), 1 Refill(s), Pharmacy: [id number], 165.1, cm, 07/03/23 4:54:00 EST, Height, kg, 07/03/23 4:54:00 EST, Dosing Weight Start Date: 07/07/23 Stop Date: 09/05/23 Status: Ordered cinnamon preparation 500 mg oral tablet (1 source) Non-Standardized Food Allergenic Extract Start: 05-13-2015 take 500 mg by mouth once daily Cinnamon Active 500 MG PO DAILY May 13, 2015 12:00am DOBUTamine (Dobutrex) 250 mg in sodium chloride 0.9% 250 mL (1 mg/mL) infusion (1 source) Start: 08-17-2023 5-40 mcg/kg/mi n 79.8 kg (23.94-191.52 mL/hr, rounded to 23.9-191.5 mL/hr), intravenous, Continuous, Starting on Sun08/17/23 at 1115, CV Medications, Dobutamine HIGH Dose Protocol: 1. INITIATE INFUSION RATE OF DOBUTAMINE 5 MCG/KG/MIN IV FOR 3 MINUTES. HOLD INFUSION IF PATIENT REACHES >85% OF AGE PREDICTED HEART RATE. MONITOR ECG, BLOOD PRESSURE AND ECHOCARDIOGRAM. 2. Dobutamine 10 MCG/KG/MIN IV FOR 3 MINUTES. HOLD INFUSION IF PATIENT REACHES >85% OF AGE PREDICTED HEART RATE. MONITOR ECG,BLOOD PRESSURE AND ECHOCARDIOGRAM. 3. Dobutamine 20 MCG/KG/MIN IV FOR 3 MINUTES. IF THE PATIENTS HEART RATE HAS NOT INCREASED 20 BPM FROM INITIAL HR, Administer ATROPINE 0.25 MG IV VIA STOPCOCK. IF THE PATIENTS HEART RATE HAS NOT INCREASED 20 BPM FROM INITIAL HR, administer ATROPINE 0.25 MG IV VIA STOPCOCK Do not exceed Atropine 0.5 MG during this stage. HOLD INFUSION IF PATIENT REACHES >85% OF AGE PREDICTED HEART RATE. MONITOR ECG,BLOOD PRESSURE AND ECHOCARDIOGRAM. 4. Dobutamine 30 MCG/KG/MIN IV FOR 3 MINUTES. IF THE PATIENTS HEART RATE HAS NOT INCREASED 20 BPM FROM INITIAL HR, administer ATROPINE 0.25 MG IV VIA STOPCOCK. IF THE PATIENTS HEART RATE HAS NOT INCREASED 20 BPM FROM INITIAL HR, administer ATROPINE 0.25 MG IV VIA STOPCOCK Do not exceed Atropine 0.5 MG during this step. HOLD INFUSION IF PATIENT REACHES >85% OF AGE PREDICTED HEART RATE. MONITOR ECG,BLOOD PRESSURE AND ECHOCARDIOGRAM. 5. Dobutamine 40 MCG/KG/MIN IV for 3 MINUTES. IF THE PATIENTS HEART RATE HAS NOT INCREASED 20 BPM FROM INITIAL HR, administer ATROPINE 0.5 MG IV VIA STOPCOCK DURING THIS STAGE. May repeat this dose x1. Atropine not to exceed 1 MG in this step. HOLD INFUSION IF PATIENT REACHES >85% OF AGE PREDICTED HEART RATE. MONITOR ECG,BLOOD PRESSURE AND ECHOCARDIOGRAM. 6. IF THE PATIENT HAS NOT REACHED >85% OF AGE PREDICTED HR AFTER 3 MINUTES OF 40 MCG/KG/MIN AND 2 MG OF ATROPINE THE TEST IS TO BE TERMINATED. docusate sodium 100 mg oral tablet (5 sources) Start: 07-03-2023 docusate sodiu m 100 mg oral tablet Dose : 100 mg = 1 tab(s), Oral, BID, PRN as needed for constipation, # 60 tab(s), 0 Refill(s) Start Date: 07/03/23 Status: Ordered Start: 06-19-2023 End: 07-23-2023 docusate sodium (Colace) 100 MG capsule Take 1 capsule (100 mg) by mouth 2 times daily. Take 2 times a day as needed for constipation. 60 capsule 0 06/23/2023 07/23/2023 Active Fleet Enema 19 g-7 g rectal enema (1 source) Start: 07-03-2023 take 1 dose rectal route once daily as needed for constipation Fleet Enema 19 g-7 g rectal enema Dose = 133 mL, Rectal, qDay, PRN as needed for constipation, 0 Refill(s) Start Date: 07/03/23 Status: Ordered glimepiride 4 mg oral tablet (19 sources) Sulfonylurea Start: 03-13-2023 glimepiride 4 mg oral tablet Dose : 4 mg = 1 tab(s), Oral, qDay, Take with food, # 90 tab(s), 3 Refill(s), Pharmacy: [id number], 161, cm, 03/13/23 9:43:00 EST, Height, kg, 03/13/23 9:32:00 EST, Dosing Weight Start Date: 03/13/23 Status: Ordered Start: 05-04-2022 End: 04-29-2023 glimepiride 2 mg oral tablet Dose : 2 mg = 1 tab(s), Oral, Daily, Take 1 tablet by mouth daily with breakfast., # 90 tab(s), 3 Refill(s), Pharmacy: [facility], 161.5, cm, 05/04/22 9:58:00 EST, Height, kg, 05/04/22 9:58:00 EST, Dosing Weight Start Date: 05/04/22 Stop Date: 04/29/23 Status: Ordered Start: 04-05-2021 End: 03-31-2022 glimepiride 2 mg oral tablet Dose : 2 mg = 1 tab(s), Oral, Daily, Take 1 tablet by mouth daily with breakfast., # 90 tab(s), 3 Refill(s), Pharmacy: [id number] Start Date: 04/05/21 Stop Date: 03/31/22 Status: Ordered insulin lispro 100 unt/ml injectable solution (7 sources) Insulin Analog Start: 07-03-2023 insulin lispro (Humalog) 100 units/mL injectable solution Sliding Scale, Subcutaneous, achs, # 10 mL, 0 Refill(s) Start Date: 07/03/23 Status: Ordered Start: 06-22-2023 End: 06-23-2023 Insulin Lispro (Humalog) inj ection 10 Units Start: 06-20-2023 End: 06-22-2023 Insulin Lispro (Humalog) inj ection 6 Units Start: 06-19-2023 End: 06-19-2023 Insulin Lispro (Humalog) inj ection 0-12 Units meclizine hydrochloride 25 mg oral tablet (2 sources) Antiemetic Start: 08-14-2021 End: 08-19-2021 meclizine 25 mg oral tablet Dose : 25 mg = 1 tab(s), Oral, TID, Dispense now, X 1 day(s), # 3 tab(s), 0 Refill(s), 08/15/21 5:20:00 EDT Start Date: 08/14/21 Stop Date: 08/15/21 Status: Ordered metFORMIN hydrochloride 500 mg oral tablet (2 sources) Biguanide Start: 05-13-2015 End: 05-02-2023 take 1 tablet by mouth once daily at dinner metFORMIN 500 mg oral tablet (IR) TAKE 1 TABLET BY MOUTH EVERY DAY WITH dinner Start Date: 04/05/21 Status: Ordered Milk of Magnesia (1 source) Start: 07-03-2023 take 1200 mg by mouth three times daily as needed for constipation Milk of Magnesia 1,200 mg, Oral, TID, PRN as needed for constipation, 0 Refill(s) Start Date: 07/03/23 Status: Ordered Niacin (1 source) Nicotinic Acid Start: 05-13-2015 Niacin Active PO DAILY May 13, 2015 12:00am ondansetron 4 mg oral tablet (7 sources) Serotonin-3 Receptor Antagonist Start: 06-19-2023 End: 07-23-2023 ondansetron 4 mg oral tablet Dose : 4 mg = 1 tab(s), Oral, q8h, PRN Nausea/Vomiting, # 15 tab(s), 0 Refill(s) Start Date: 07/03/23 Status: Ordered Start: 08-14-2021 End: 08-17-2021 ondansetron 4 mg oral tablet , disintegrating Dose : 4 mg = 1 tab(s), Oral, BID, Dispense now, X 1 day(s), # 2 tab(s), 0 Refill(s), 08/15/21 5:20:00 EDT Start Date: 08/14/21 Stop Date: 08/15/21 Status: Ordered potassium chloride 20 meq extended release oral tablet (7 sources) Start: 08-09-2023 take 1 tablet by mouth once daily at mealtime potassium chloride CR 20 mEq ER tablet Take 1 tablet (20 mEq) by mouth once daily. Take with food. 08/09/2023 Active Start: 06-07-2023 Potassium Chlo ride (Eqv-K-Tab) 20 mEq oral tablet, extended release Dose : 20 mEq = 1 tab(s), Oral, qDay, Take with food, # 30 tab(s), 11 Refill(s), Pharmacy: [facility], 161, cm, 03/13/23 9:43:00 EST, Height, kg, 03/13/23 9:32:00 EST, Dosing Weight Start Date: 06/07/23 Status: Ordered Start: 05-13-2015 End: 05-02-2023 take 20 mEq by mouth twice daily Potassium Chloride Discontinued 20 MEQ PO TWICE A DAY May 13, 2015 12:00am May 02, 2023 1:27pm spironolactone 25 mg oral tablet (2 sources) Aldosterone Antagonist Start: 04-05-2021 End: 03-31-2022 spironolactone 25 mg oral tablet Dose : 25 mg = 1 tab(s), Oral, Daily, Take 1 tablet by mouth once daily., # 90 tab(s), 3 Refill(s), Pharmacy: [id number] Start Date: 04/05/21 Stop Date: 03/31/22 Status: Ordered Completed/Discontinued Medications Medication Drug Class(es) Dates Sig (Normalized) Sig (Original) Acetaminophen / oxyCODONE (2 sources) Opioid Agonist Start: 4 End: 4 take 1 tablet by mouth every four hours as needed for pain oxyCODONE-acetamin ophen (Percocet) 5-325 MG per tablet 1 tablet [id number] 200 actuat albuterol 0.09 mg/actuat metered dose inhaler (1 source) beta2-Adrenergic Agonist Start: 0 End: 4 take 1 puff(s) by inhalation every four hours as needed Albuterol Sulfate Discontinued 1 - 2 PUFF INHALATION EVERY 4 HOURS NEEDED March 03, 2020 12:00am Shobha 3rd, 2024 1:27pm ALPRAZolam 0.25 mg disintegrating oral tablet (2 sources) Benzodiazepine Start: 4 End: 4 ALPRAZolam (Xanax) disintegrating tablet 0.25 mg azithromycin 250 mg oral tablet (1 source) Macrolide Antimicrobial Start: 8 End: 4 Azithromycin Discontinued 0 PO .COMPLEX 6 August 13, 2017 11:00pm May 02, 2023 1:26pm take 500 mg today (day 1), then 250 mg for 4 days (days 2-5) PO baclofen 10 mg oral tablet (2 sources) gamma-Aminobutyric Acid-ergic Agonist Start: 4 End: 4 take 10 mg by mouth every twelve hours as needed for muscle spasms 10 mg, Oral, Every 12 hours PRN, muscle spasms, Starting on Sun06/19/23 at 1741, Phase II/On Unit bisoprolol fumarate 5 mg oral tablet (1 source) beta-Adrenergic Ruchi Start: 6 End: 4 take 5 mg by mouth once daily Bisoprolol Fumarate Discontinued 5 MG PO DAILY May 13, 2015 12:00am May 02, 2023 1:25pm ceFAZolin 2000 mg injection (2 sources) Cephalosporin Antibacterial Start: 4 End: 4 take 2000 mg intravenously every eight hours 2,000 mg, IntraVENous, Administer over 30 Minutes, Every 8 hours, First dose on Sun06/19/23 at 1845, For 2 doses, Phase II/On Unit, Patients /= 120 k mg premix bag, Suspected Indication (Select all that apply): Surgical Prophylaxis cholecalciferol 9.52 unt/ml / glucose 357 mg/ml oral gel (2 sources) Vitamin D Start: 4 End: 4 glucose oral gel 15 g clopidogrel 75 mg oral tablet (7 sources) [id number] Platelet Inhibitor Start: 4 End: 5 take 1 tablet by mouth once daily clopidogrel (Plavix) 75 mg tablet Indications: Coronary artery disease involving [place] coronary artery of [place] heart without angina pectoris Take 1 tablet (75 mg) by mouth once daily. 90 tablet 3 09/04/2023 08/06/2024 Discontinued (Med List Cleanup) 1 ml dexamethasone phosphate 4 mg/ml injection (2 sources) Corticosteroid Start: End: take 10 mg intravenously every eight hours 10 mg, IntraVENous, Every 8 hours, First dose on Sun06/19/23 at 1745, For 3 doses, Phase II/On Unit docusate sodium 50 mg / sennosides, fpc 8.6 mg oral tablet (4 sources) Start: End: 4 senna-docusate sodium (Senokot-S) 8.6-50 MG tablet 2 tablet famotidine 20 mg oral tablet (4 sources) Histamine-2 Receptor Antagonist Start: End: 4 take 20 mg by mouth twice daily 20 mg, Oral, 2 times daily, First dose on Sun06/19/23 at 2100, Phase II/On Unit glucagon (rdna) 1 mg injection (2 sources) Antihypoglycemic Agent Start: End: 4 glucagon (human recombinant) injection 1 mg 150 ml glucose 50 mg/ml injection (4 sources) Start: End: dextrose 50 % solution 12.5 g Start: 06-20-2023 End: 06-23-2023 dextrose 5 % infusion hydroCHLOROthiazide 25 mg oral tablet (20 sources) Thiazide Diuretic Start: 06-20-2023 End: 06-23-2023 take 12.5 mg by mouth once daily 12.5 mg, Oral, Daily, First dose on Sun06/20/23 at 0900 Start: 05-04-2022 End: 04-29-2023 hydroCHLOROthiazide 12.5 mg oral capsule Dose : 12.5 mg = 1 cap(s), Oral, qDay, Take 1 capsule by mouth once daily., # 90 cap(s), 3 Refill(s), Pharmacy: [facility], 161.5, cm, 05/04/22 9:58:00 EST, Height, kg, 05/04/22 9:58:00 EST, Dosing Weight Start Date: 05/04/22 Stop Date: 04/29/23 Status: Ordered Start: 04-05-2021 End: 03-31-2022 hydroCHLOROthiazide 12.5 mg oral capsule Dose : 12.5 mg = 1 cap(s), Oral, qDay, Take 1 capsule by mouth once daily., # 90 cap(s), 3 Refill(s), Pharmacy: [id number] Start Date: 04/05/21 Stop Date: 03/31/22 Status: Ordered Start: 05-13-2015 take 25 mg by mouth once daily Hydrochlorothiazide Active 25 MG PO DAILY May 13, 2015 12:00am HYDROmorphone (Dilaudid) injection 0.25 mg (2 sources) Start: 06-19-2023 End: 06-23-2023 HYDROmorphone (Dilaudid) injection 0.25 mg hydrOXYzine hydrochloride 10 mg oral tablet (2 sources) Antihistamine Start: 06-19-2023 End: 06-23-2023 take 1 tablet by mouth every eight hours as needed 10 mg, Oral, Every 8 hours PRN, itching, Starting on Sun06/19/23 at 1741, Phase II/On Unit insulin glargine 100 unt/ml injectable solution (2 sources) Insulin Analog Start: 06-20-2023 End: 06-23-2023 insulin glargine (Lantus) injection 10 Units Insulin Lispro (Humalog) injection 0-12 Units (2 sources) Start: 06-20-2023 End: 06-23-2023 Insulin Lispro (Humalog) injection 0-12 Units iohexol (OMNIPaque) 350 mg iodine/mL solution 80 mL (2 sources) Start: 07-23-2023 End: 07-23-2023 iohexol (OMNIPaque) 350 mg iodine/mL solution 80 mL lactulose 667 mg/ml oral solution (2 sources) Osmotic Laxative Start: 06-22-2023 End: 06-22-2023 lactulose (Chronulac) 10 GM/15ML solution 10 g Start: 06-22-2023 End: 06-22-2023 lactulose (Chronulac) 10 GM/ 15ML solution 10 g lisinopril 20 mg oral tablet (20 sources) Angiotensin Converting Enzyme Inhibitor Start: 06-20-2023 End: 06-23-2023 take 20 mg by mouth once daily 20 mg, Oral, Daily, First dose on Sun06/20/23 at 0900 Start: 05-04-2022 End: 04-29-2023 lisinopril 20 mg oral tablet Dose : 20 mg = 1 tab(s), Oral, Daily, TAKE 1 TABLET BY MOUTH EVERY DAY, # 90 tab(s), 3 Refill(s), Pharmacy: [facility], 161.5, cm, 05/04/22 9:58:00 EST, Height, kg, 05/04/22 9:58:00 EST, Dosing Weight Start Date: 05/04/22 Stop Date: 04/29/23 Status: Ordered Start: 05-13-2015 End: 03-31-2022 lisinopril 20 mg oral tablet Dose : 20 mg = 1 tab(s), Oral, Daily, TAKE 1 TABLET BY MOUTH EVERY DAY, # 90 tab(s), 3 Refill(s), Pharmacy: [id number] Start Date: 04/05/21 Stop Date: 03/31/22 Status: Ordered methylPREDNISolone 4 mg oral tablet (1 source) Corticosteroid Start: 08-14-2017 End: 08-19-2017 take 1 tablet by mouth once Methylprednisolone (Medrol (Karel)) 4 mg tablets,dose pack Discontinued 4 MG PO per package directions 17 09August 13, 2017 11:00pm August 18, 2017 11:09pm 1 ml naloxone hydrochloride 0.4 mg/ml injection (2 sources) Opioid Antagonist Start: 06-19-2023 End: 06-23-2023 naloxone (Narcan) injection 0.4 mg ondansetron ODT (Zofran-ODT) disintegrating tablet 4 mg (2 sources) Start: 06-19-2023 End: 06-23-2023 take 1 tablet by mouth every eight hours as needed for nausea and vomiting ondansetron ODT (Zofran-ODT) disintegrating tablet 4 mg oxyCODONE hydrochloride 5 mg oral tablet (9 sources) Opioid Agonist Start: 07-03-2023 oxyCODONE 5 mg oral tablet ( IMMEDIATE release ) Dose : 2.5 mg = 0.5 tab(s), Oral, q6h, PRN as needed for pain, 0 Refill(s), 77.5 Start Date: 07/03/23 Status: Ordered Start: 06-19-2023 End: 06-28-2023 take 1 tablet by mouth every six hours as needed for pain oxyCODONE (Roxicodone) 5 MG immediate release tablet Indications: Spondylolisthesis of lumbosacral region Take 1 tablet (5 mg) by mouth every 6 hours as needed for severe pain (7-10) or moderate pain (4-6) for up to 5 days. Take as needed every 6 hours as needed for pain. Continue to wean off as pain becomes more tolerable. 20 tablet 0 06/23/2023 06/23/2023 Discontinued polyethylene glycol 3350 [id number] mg powder for oral solution (5 sources) Osmotic Laxative Start: 07-03-2023 take 4-8 [oz_av] by mouth once daily as needed Miralax Powder Packet Dose : 17 gram(s) =, Oral, qDay, PRN Constipation, dissolve in 4 to 8 oz of beverage, # 238 gram(s), 0 Refill(s) Start Date: 07/03/23 Status: Ordered Start: 06-21-2023 End: 06-23-2023 polyethylene glycol (PEG) 33 50 (Miralax) packet 17 g 5 ml sodium chloride 9 mg/ml injection (6 sources) Start: 06-19-2023 End: 06-23-2023 10 mL, IntraVENous, Every 12 hours scheduled (2 times per day), First dose on Sun06/19/23 at 2100, Phase II/On Unit Start: 06-19-2023 End: 06-23-2023 take 100 mL intravenously every hour as needed, then take 20 mL intravenously every hour as needed 5-250 mL/hr, IntraVENous, PRN, if patient receiving piggyback infusions and maintenance fluids are not ordered OR KVO fluids to protect IV site / prevent frequent line interruptions/ long duration, Starting on Sun06/19/23 at 1741, Phase II/On Unit, For piggyback infusion, administer at same rate as piggyback for a total of 25 mL. Enter 25 mL into dose field and piggyback rate into rate field of order. If piggyback is infusing at a rate less than 100 mL/hr, enter 25 mL into dose field and 100 mL/hr into rate field of order. For KVO fluids, enter rate of 20 mL/hr or less into rate field of order. 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; Translations: [Myocardial infarction type 2] Chronic Cardiac dysrhythmias (20 sources) Multiple premature ventricular complexes; Translations: [Ventricular premature depolarization] Onset: 06-14-2023 06-14-2023 Chronic Complications of surgical procedures or medical care (2 sources) Delayed recovery from general anesthesia; Translations: [Other complications of anesthesia, initial encounter] Onset: 06-18-2023 06-18-2023 Episodic Coronary atherosclerosis and other heart disease (20 sources) Ischemic myocardial dysfunction; Translations: [Ischemic cardiomyopathy] Onset: 06-14-2023 06-14-2023 Chronic Diabetes mellitus with complications (2 sources) Neuropathy due to type 2 diabetes mellitus; Translations: [Type 2 diabetes mellitus with diabetic neuropathy, unspecified] Chronic Diabetes mellitus without complication (20 sources) Type 2 diabetes mellitus; Translations: [Type 2 diabetes mellitus without complication] Onset: 06-14-2023 07-15-2021 Chronic Essential hypertension (20 sources) Hypertensive disorder; Translations: [Essential hypertension] Onset: 06-14-2023 07-15-2021 Chronic Heart valve disorders (20 sources) Aortic stenosis, non-rheumatic ; Translations: [Nonrheumatic aortic (valve) stenosis] Onset: 06-14-2023 06-14-2023 Chronic Heart valve disorders (5 sources) Heart murmur; Translations: [Cardiac murmur, unspecified] 11-02-2022 Episodic Other acquired deformities (6 sources) Spondylolisthesis; Translations: [Spondylolisthesis, lumbosacral region] Onset: 06-19-2023 06-19-2023 Episodic Other acquired deformities (2 sources) Spondylolisthesis, lumbosacral region; Translations: [Spondylolisthesis, lumbosacral region] Onset: 06-19-2023 Episodic Other connective tissue disease (3 sources) Foot pain 11-02-2022 Episodic Other connective tissue disease (2 sources) Cramp in lower limb 02-15-2023 Episodic Other ear and sense organ disorders (4 sources) Hearing loss of right ear 05-04-2022 Chronic Other nervous system disorders (1 source) Mononeuropathy of lower limb; Translations: [Unspecified mononeuropathy of left lower limb] Chronic Other nervous system disorders (4 sources) Left leg peripheral neuropathy 08-18-2021 Chronic Other non-traumatic joint disorders (3 sources) Knee pain 11-02-2022 Episodic Jael-; endo-; and myocarditis; cardiomyopathy (except that caused by tuberculosis or sexually transmitted disease) (15 sources) Primary cardiomyopathy; Translations: [Cardiomyopathy, unspecified] Onset: 09-03-2023 09-04-2023 Chronic Peripheral and visceral atherosclerosis (5 sources) Peripheral vascular disease; Translations: [Peripheral vascular disease, unspecified] Chronic Pulmonary heart disease (13 sources) Pulmonary embolism; Translations: [Single subsegmental pulmonary embolism without acute cor pulmonale] Onset: 09-04-2023 09-04-2023 Episodic Spondylosis; intervertebral disc disorders; other back problems (5 sources) Spinal stenosis; Translations: [Low back pain] 02-15-2023 Episodic Syncope (2 sources) Syncope and collapse; Translations: [Syncope and collapse] Onset: 07-02-2023 Episodic Unclassified (2 sources) Single subsegmental pulmonary embolism without acute cor pulmonale; Translations: [Single subsegmental thrombotic pulmonary embolism without acute cor pulmonale] Onset: 09-04-2023 Viral infection (1 source) Disease caused by 2019-nCoV; Translations: [COVID-19] 03-04-2020 Episodic Past or Other Problems Problem Classification Problem Date Documented Date Episodic/Chronic Other screening for suspected conditions (not mental disorders or infectious disease) (16 sources) Electrocardiogram abnormal; Translations: [Abnormal electrocardiogram [ECG] [EKG]] Onset: 06-14-2023 06-14-2023 Episodic Unclassified (1 source) daily fevers 11-23-2021 Results Test Name Value Interpretation Reference Range Facility ECG 12-LEADon 03-06-2024 ECG 12-LEAD Ventricular Rate 81 Atrial Rate 100 QRS Duration 80 Q-T Interval 390 QTC Calculation(Bazett) 453 R Cushing 26 T Cushing 134 QRS Count 13 Q Onset 219 T Offset 414 QTC Fredericia 430 Diagnosis Atrial fibrillation with premature ventricular or aberrantly conducted complexes ST & T wave abnormality, consider lateral ischemia or digitalis effect Abnormal ECG No previous ECGs available Confirmed by Luis Donahue ([id number]) on 03/10/2024 9:26:57 AM Normal [facility] TRANSTHORACIC ECHO (TTE) COM PLETEon 03-06-2024 TRANSTHORACIC ECHO (TTE) COMPLETE [facility] [place], [place] [id number] and TRANSTHORACIC ECHOCARDIOGRAM REPORT Patient Name: AZAR TRIPLETT Reading Physician: [id number] Donahue MD Study Date: 03/06/2024 Ordering Provider: [id number] LUIS DONAHUE MRN/PID: [id number] Fellow: Nurse: Date of /Age: 4 1945 Environmental Services Project Manager: Shamika morales ANKIT Gender assigned at M Additional Staff: : Height: 165.10 cm Admit Date: 03/06/2024 Weight: 83.91 kg Admission Status: Outpatient BSA / BMI: 1.91 m2 / 30.79 kg/m2 Blood Pressure: / Department Location: [facility] Study Type: TRANSTHORACIC ECHO (TTE) COMPLETE Diagnosis/ICD: Unspecified atrial fibrillation-I48.91; Nonrheumatic aortic (valve) stenosis-I35.0 Indication: Atrial Fibrillation CPT Code: Echo Complete w Full Doppler-[id number] Study Detail: The following Echo studies were performed: 2D, M-Mode, Doppler and color flow. Patient's heart rhythm is atrial fibrillation and with premature ventricular contractions. A bubble study was not performed. PHYSICIAN INTERPRETATION: Left Ventricle: The left ventricular systolic function is mildly decreased, with a visually estimated ejection fraction of 45-50%. The patient is in atrial fibrillation which may influence the estimate of left ventricular function and transvalvular flows. There are multiple left ventricular wall motion abnormalities. The left ventricular cavity size is normal. There is mildly increased septal and mildly increased posterior left ventricular wall thickness. There is left ventricular concentric remodeling. Left ventricular diastolic filling is indeterminate. LV Wall Scoring: The mid and apical anterior wall, mid anterolateral segment, and apical lateral segment are akinetic. All remaining scored segments are normal. Left Atrium: The left atrium is mildly dilated. A bubble study using agitated saline was not performed. Right Ventricle: The right ventricle is normal in size. There is mildly reduced right ventricular systolic function. Right Atrium: The right atrium is normal in size. Aortic Valve: The aortic valve is trileaflet. There is moderate aortic valve cusp calcification. There is severe aortic valve thickening. There is reduced systolic aortic valve leaflet excursion. There is evidence of moderate aortic valve stenosis. There is low flow across the aortic valve, with a normal ejection fraction. The aortic valve dimensionless index is 0.31. There is no evidence of aortic valve regurgitation. The peak instantaneous gradient of the aortic valve is 33 mmHg. The mean gradient of the aortic valve is 18 mmHg. Mitral Valve: The mitral valve is mildly thickened. There is mild mitral valve regurgitation. Tricuspid Valve: The tricuspid valve is structurally normal. There is mild tricuspid regurgitation. Pulmonic Valve: The pulmonic valve is structurally normal. There is no indication of pulmonic valve regurgitation. Pericardium: There is no pericardial effusion noted. Aorta: The aortic root is normal. In comparison to the previous echocardiogram(s): Compared with study dated 06/14/2023, no significant change. CONCLUSIONS: 1. Mid and apical anterior wall, mid anterolateral segment, and apical lateral segment are abnormal. 2. The left ventricular systolic function is mildly decreased, with a visually estimated ejection fraction of 45-50%. 3. There are multiple left ventricular wall motion abnormalities. 4. Left ventricular diastolic filling is indeterminate. 5. There is mildly reduced right ventricular systolic function. 6. The left atrium is mildly dilated. 7. Moderate aortic valve stenosis. 8. There is moderate aortic valve cusp calcification. 9. There is severe aortic valve thickening. 10. The patient is in atrial fibrillation which may influence the estimate of left ventricular function and transvalvular flows. QUANTITATIVE DATA SUMMARY: 2D MEASUREMENTS: Normal Ranges: LAs: 3.95 cm (2.7-4.0cm) RVIDd: 2.36 cm (0.9-3.6cm) IVSd: 1.12 cm (0.6-1.1cm) LVPWd: 1.03 cm (0.6-1.1cm) LVIDd: 4.75 cm (3.9-5.9cm) LVIDs: 3.01 cm LV Mass Index: 97 g/m2 LVEDV Index: 59 ml/m2 LV % FS 36.5 % LA VOLUME: Normal Ranges: LA Vol A4C: 66.2 ml (22+/-6mL/m2) LA Vol A2C: 68.7 ml LA Vol BP: 70.8 ml LA Vol Index A4C: 34.6 ml/m2 LA Vol Index A2C: 35.9 ml/m2 LA Vol Index BP: 37.0 ml/m2 LA Area A4C: 20.5 cm2 LA Area A2C: 19.9 cm2 LA Major Cushing A4C: 5.4 cm LA Major Cushing A2C: 4.9 cm LA Vol A4C: 61.9 ml LA Vol A2C: 62.9 ml LA Vol Index BSA: 32.6 ml/m2 RA VOLUME BY A/L METHOD: Normal Ranges: RA Vol A4C: 23.3 ml (8.3-19.5ml) RA Vol Index A4C: 12.2 ml/m2 RA Area A4C: 11.1 cm2 RA Major Cushing A4C: 4.5 cm LV SYSTOLIC FUNCTION BY 2D PLANIMETRY (MOD): Normal Ranges: EF-A4C View: 51 % (>=55%) EF-A2C View: 45 % EF-Biplane (more content not included)... Normal [facility] CT Neck+Chest+Abdomen+Pelvis W contrast [place] 07-23-2023 1. Segmental right lower lobe pulmonary embolism. No CT findings of right heart strain. 2. Extensive atherosclerotic changes involving the thoracoabdominal aorta and its branches. Severe calcification is noted within the bilateral common femoral arteries. There is additional severe calcification of the ostium of the celiac artery with severe stenosis. 3. Severe calcifications of the aortic valve correlating with history of aortic stenosis. 4. Severe coronary artery calcifications which are suboptimally evaluated on this exam. 5. Focal area of increased attenuation within the cecum most likely represents formed stool though recommend correlation with up-to-date colonoscopy as underlying soft tissue lesion is not excluded. 6. Prostatomegaly. Correlate with serum PSA as warranted. 7. Conglomerate of multiple enlarged mediastinal lymph nodes, many of which demonstrate calcification, likely on the basis of prior granulomatous disease. Given the presence some noncalcified, enlarged subcarinal lymph nodes, recommend correlation with prior imaging, if available. If no prior imaging is available, recommend pulmonary medicine consultation for consideration of tissue sampling or PET/CT versus follow-up CT in 3 months. 8. Additional incidental findings as described. MACRO: Jayden Moore discussed the significance and urgency of this critical finding secure message with AMANDEEP VILLANUEVA on 07/23/2023 at 2:38 pm. (-RCF-) Findings: See findings. Critical Finding: See findings. Notification was initiated on 07/23/2023 at 2:53 pm by Jayden Moore. (-YCF-) Instructions: Signed by: Jayden Moore 07/23/2023 3:28 PM Dictation workstation: [id number] [facility] Interpreted By: Jayden Moore, STUDY: CT TAVR FULL CONTRAST CHEST ABDOMEN PELVIS; 07/23/2023 10:56 am INDICATION: Signs/Symptoms:aortic stenosis, syncope. COMPARISON: None. ACCESSION NUMBER(S): [id number] ORDERING CLINICIAN: AMANDEEP VILLANUEVA TECHNIQUE: Multi-detector CT technology was employed. Initial limited axial imaging of chest with prospective gating is performed. Following this,helical multi-detector acquisition of the chest with retrospective gating and minimal slice thickness was performed following the intravenous administration of contrast material. Subsequently, contrast enhanced non-gated CT examination of the abdomen and pelvis was obtained. A low-osmolar contrast agent was used (80 mL Omnipaque 350). For optimization of anatomic evaluation, multiplanar reconstruction, maximum intensity projections, and advanced 3-D off-line postprocessing were performed on a dedicated stand-alone workstation under the direct supervision of the interpreting physician. FINDINGS: Potential study limitations: None. THORACIC AORTA AND HEART: The thoracic aorta normal in course and caliber.There are mild scattered atherosclerosis present, including calcified and noncalcified plaques. There is no evidence for acute aortic pathology, such as dissection, intramural hematoma, or contained rupture. The sinotubular junction is preserved. The arch vessel branching pattern is conventional. All of the arch branch vessels appear widely patent in their proximal portions. Normal atrioventricular and ventriculoarterial concordance. The cardiac chambers are not enlarged. There are significant calcifications of aortic valve, in keeping with patients history of aortic stenosis.There are also mild mitral annular calcifications seen. Normal coronary artery origins.Severe coronary artery calcifications are seen. Please note,the study is not optimized for evaluation of coronary arteries. Probable left circumflex stent. There is no pericardial effusion seen. PULMONARY ARTERIES Main pulmonary artery and its branches are normal in caliber (MPA-2 cm). Filling defect within a segmental right lower lobe pulmonary artery on series 23, image 166. SYSTEMIC AND PULMONARY VEINS Normal systemic venous and pulmonary venous return. The SVC and IVC are of normal caliber. Normal pulmonary venous anatomy. CHEST: The visualized thyroid gland is within normal limits. A conglomerate of multiple enlarged subcarinal lymph nodes is noted measuring up to 2.2 cm in the short axis. Some of these lymph nodes contain calcifications. There are additional calcified bilateral hilar and more superior mediastinal lymph nodes. There is a smallsized hiatal hernia with mild concentric mid to distal esophageal wall thickening; correlate with concern for reflux esophagitis.Calcified paraesophageal lymph node is compatible with prior granulomatous disease. The trachea and central airways are patent. No endobronchial lesion is seen. Gmgge-bxpznsg-bimz-lef t basilar predominant ground-glass and linear opacities that likely represent atelectasis. Areas of traction bronchiolectasis in the medial right lower lobe in a region of probable scarring adjacent to bulky vertebral osteophytes. Scattered calcified granulomas. ABDOMINAL AORTA: The abdominal aorta and its branches demonstrate moderate to severe calcified and non calcified atherosclerotic plaques. Replaced right hepatic artery arising off the SMA. 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 Severe calcifications within the bilateral common femoral arteries at the level of the femoral heads. 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 ABDOMEN AND PELVIS: HEPATOBILIARY SYSTEM: The liver is normal in size. There is no evidence of focal liver lesion GALLBLADDER: The gallbladder is nondistended without evidence of radiopaque stones. There is circumferential wall thickening of the gallbladder which is nonspecific. The intrahepatic and extrahepatic bile ducts are not dilated. PANCREAS: The pancreas is within normal limits.No suspicious focal lesions identified. SPLEEN: The spleen is normal in size.No suspicious focal lesions are seen. ADRENAL GLANDS: The bilateral adrenal glands are unremarkable in appearance. KIDNEYS AND URETERS: The bilateral kidneys are normal in size and enhance symmetrically. No focal renal lesion is identified. There is no evidence of hydroureteronephrosis or nephroureterolithiasis . GI TRACT: The stomach is unremarkable. The small bowel is normal in caliber without evidence of focal wall thickening or obstruction. The appendix is visualized and appears normal. There is no evidence of focal wall thickening or dilatation of the large bow (more content not included)... [facility] Jayden Moore MD - 07/23/2023 Interpreted By: Jayden Moore, STUDY: CT TAVR FULL CONTRAST CHEST ABDOMEN PELVIS; 07/23/2023 10:56 am INDICATION: Signs/Symptoms:aortic stenosis, syncope. COMPARISON: None. ACCESSION NUMBER(S): [id number] ORDERING CLINICIAN: AMANDEEP VILLANUEVA TECHNIQUE: Multi-detector CT technology was employed. Initial limited axial imaging of chest with prospective gating is performed. Following this,helical multi-detector acquisition of the chest with retrospective gating and minimal slice thickness was performed following the intravenous administration of contrast material. Subsequently, contrast enhanced non-gated CT examination of the abdomen and pelvis was obtained. A low-osmolar contrast agent was used (80 mL Omnipaque 350). For optimization of anatomic evaluation, multiplanar reconstruction, maximum intensity projections, and advanced 3-D off-line postprocessing were performed on a dedicated stand-alone workstation under the direct supervision of the interpreting physician. FINDINGS: Potential study limitations: None. THORACIC AORTA AND HEART: The thoracic aorta normal in course and caliber.There are mild scattered atherosclerosis present, including calcified and noncalcified plaques. There is no evidence for acute aortic pathology, such as dissection, intramural hematoma, or contained rupture. The sinotubular junction is preserved. The arch vessel branching pattern is conventional. All of the arch branch vessels appear widely patent in their proximal portions. Normal atrioventricular and ventriculoarterial concordance. The cardiac chambers are not enlarged. There are significant calcifications of aortic valve, in keeping with patients history of aortic stenosis.There are also mild mitral annular calcifications seen. Normal coronary artery origins.Severe coronary artery calcifications are seen. Please note,the study is not optimized for evaluation of coronary arteries. Probable left circumflex stent. There is no pericardial effusion seen. PULMONARY ARTERIES Main pulmonary artery and its branches are normal in caliber (MPA-2 cm). Filling defect within a segmental right lower lobe pulmonary artery on series 23, image 166. SYSTEMIC AND PULMONARY VEINS Normal systemic venous and pulmonary venous return. The SVC and IVC are of normal caliber. Normal pulmonary venous anatomy. CHEST: The visualized thyroid gland is within normal limits. A conglomerate of multiple enlarged subcarinal lymph nodes is noted measuring up to 2.2 cm in the short axis. Some of these lymph nodes contain calcifications. There are additional calcified bilateral hilar and more superior mediastinal lymph nodes. There is a smallsized hiatal hernia with mild concentric mid to distal esophageal wall thickening; correlate with concern for reflux esophagitis.Calcified paraesophageal lymph node is compatible with prior granulomatous disease. The trachea and central airways are patent. No endobronchial lesion is seen. Wwytb-rukjlnb-jlnp-lef t basilar predominant ground-glass and linear opacities that likely represent atelectasis. Areas of traction bronchiolectasis in the medial right lower lobe in a region of probable scarring adjacent to bulky vertebral osteophytes. Scattered calcified granulomas. ABDOMINAL AORTA: The abdominal aorta and its branches demonstrate moderate to severe calcified and non calcified atherosclerotic plaques. Replaced right hepatic artery arising off the SMA. 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 Severe calcifications within the bilateral common femoral arteries at the level of the femoral heads. 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 ABDOMEN AND PELVIS: HEPATOBILIARY SYSTEM: The liver is normal in size. There is no evidence of focal liver lesion GALLBLADDER: The gallbladder is nondistended without evidence of radiopaque stones. There is circumferential wall thickening of the gallbladder which is nonspecific. The intrahepatic and extrahepatic bile ducts are not dilated. PANCREAS: The pancreas is within normal limits.No suspicious focal lesions identified. SPLEEN: The spleen is normal in size.No suspicious focal lesions are seen. ADRENAL GLANDS: The bilateral adrenal glands are unremarkable in appearance. KIDNEYS AND URETERS: The bilateral kidneys are normal in size and enhance symmetrically. No focal renal lesion is identified. There is no evidence of hydroureteronephrosis or nephroureterolithiasis . GI TRACT: The stomach is unremarkable. The small bowel is normal in caliber without evidence of focal wall thickening or obstruction. The appendix is visualized and appears normal. There is no evidence of focal w (more content not included)... [facility] Work Phone: Radiology Study observation (narrative) [facility] Work Phone: CT Neck+Chest+Abdomen+Pelvis W contrast IVOrdered By: Jayden Moore on 07-23-2023 [facility] Work Phone: CT TAVR FULL CONTRAST CHEST ABDOMEN PELVISon 07-23-2023 CT TAVR FULL CONTRAST CHEST ABDOMEN PELVIS Interpreted By: Jayden Moore, STUDY: CT TAVR FULL CONTRAST CHEST ABDOMEN PELVIS; 07/23/2023 10:56 am INDICATION: Signs/Symptoms:aortic stenosis, syncope. COMPARISON: None. ACCESSION NUMBER(S): [id number] ORDERING CLINICIAN: AMANDEEP VILLANUEVA TECHNIQUE: Multi-detector CT technology was employed. Initial limited axial imaging of chest with prospective gating is performed. Following this,helical multi-detector acquisition of the chest with retrospective gating and minimal slice thickness was performed following the intravenous administration of contrast material. Subsequently, contrast enhanced non-gated CT examination of the abdomen and pelvis was obtained. A low-osmolar contrast agent was used (80 mL Omnipaque 350). For optimization of anatomic evaluation, multiplanar reconstruction, maximum intensity projections, and advanced 3-D off-line postprocessing were performed on a dedicated stand-alone workstation under the direct supervision of the interpreting physician. FINDINGS: Potential study limitations: None. THORACIC AORTA AND HEART: The thoracic aorta normal in course and caliber.There are mild scattered atherosclerosis present, including calcified and noncalcified plaques. There is no evidence for acute aortic pathology, such as dissection, intramural hematoma, or contained rupture. The sinotubular junction is preserved. The arch vessel branching pattern is conventional. All of the arch branch vessels appear widely patent in their proximal portions. Normal atrioventricular and ventriculoarterial concordance. The cardiac chambers are not enlarged. There are significant calcifications of aortic valve, in keeping with patients history of aortic stenosis.There are also mild mitral annular calcifications seen. Normal coronary artery origins.Severe coronary artery calcifications are seen. Please note,the study is not optimized for evaluation of coronary arteries. Probable left circumflex stent. There is no pericardial effusion seen. PULMONARY ARTERIES Main pulmonary artery and its branches are normal in caliber (MPA-2 cm). Filling defect within a segmental right lower lobe pulmonary artery on series 23, image 166. SYSTEMIC AND PULMONARY VEINS Normal systemic venous and pulmonary venous return. The SVC and IVC are of normal caliber. Normal pulmonary venous anatomy. CHEST: The visualized thyroid gland is within normal limits. A conglomerate of multiple enlarged subcarinal lymph nodes is noted measuring up to 2.2 cm in the short axis. Some of these lymph nodes contain calcifications. There are additional calcified bilateral hilar and more superior mediastinal lymph nodes. There is a smallsized hiatal hernia with mild concentric mid to distal esophageal wall thickening; correlate with concern for reflux esophagitis.Calcified paraesophageal lymph node is compatible with prior granulomatous disease. The trachea and central airways are patent. No endobronchial lesion is seen. Npsme-ksbcvzm-zqtc-lef t basilar predominant ground-glass and linear opacities that likely represent atelectasis. Areas of traction bronchiolectasis in the medial right lower lobe in a region of probable scarring adjacent to bulky vertebral osteophytes. Scattered calcified granulomas. ABDOMINAL AORTA: The abdominal aorta and its branches demonstrate moderate to severe calcified and non calcified atherosclerotic plaques. Replaced right hepatic artery arising off the SMA. 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 Severe calcifications within the bilateral common femoral arteries at the level of the femoral heads. 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 ABDOMEN AND PELVIS: HEPATOBILIARY SYSTEM: The liver is normal in size. There is no evidence of focal liver lesion GALLBLADDER: The gallbladder is nondistended without evidence of radiopaque stones. There is circumferential wall thickening of the gallbladder which is nonspecific. The intrahepatic and extrahepatic bile ducts are not dilated. PANCREAS: The pancreas is within normal limits.No suspicious focal lesions identified. SPLEEN: The spleen is normal in size.No suspicious focal lesions are seen. ADRENAL GLANDS: The bilateral adrenal glands are unremarkable in appearance. KIDNEYS AND URETERS: The bilateral kidneys are normal in size and enhance symmetrically. No focal renal lesion is identified. There is no evidence of hydroureteronephrosis or nephroureterolithiasis . GI TRACT: The stomach is unremarkable. The small bowel is normal in caliber without evidence of focal wall thickening or obstruction. The appendix is visualized and appears normal. There is no evidence of focal wall thickening or dilatation of the large bowel. There is a moderate amount of formed stool thr (more content not included)... Normal [facility] .Auto Diffon 07-19-2023 Basophil, Absolute 0.1 10 3/mcL Normal 0.0-0.2 [facility] ([place]) Comment on above: Performed By: #### G FR, CBC, ADIFF, ANEU, CMP ####[address] [place], [place] [address] Basophils/100 WBC (Bld) 0.9 % Normal 0.0-2.5 [facility] ([place]) Comment on above: Performed By: #### G FR, CBC, ADIFF, ANEU, CMP ####[address] [place], [place] [address] Eosinophil, Absolute 0.5 10 3/mcL High 0.0-0.4 [facility] ([place]) Comment on above: Performed By: #### G FR, CBC, ADIFF, ANEU, CMP ####[address] [place], [place] [address] Eosinophils/100 WBC (Bld) 5.7 % Normal 0.0-7.0 [facility] ([place]) Comment on above: Performed By: #### G FR, CBC, ADIFF, ANEU, CMP ####[address] [place], [place] [address] Lymphocyte, Absolute 2.2 10 3/mcL Normal 0.8-3.9 [facility] ([place]) Comment on above: Performed By: #### G FR, CBC, ADIFF, ANEU, CMP ####[address] [place], [place] [address] Lymphocytes/100 WBC (Bld) 26.6 % Normal 10.0-50.0 [facility] ([place]) Comment on above: Performed By: #### G FR, CBC, ADIFF, ANEU, CMP ####[address] [place], [place] [address] Monocyte, Absolute 1.0 10 3/mcL Normal 0.2-1.0 [facility] ([place] Comment on above: Performed By: #### G FR, CBC, ADIFF, ANEU, CMP ####[address] [place], [place] [address] Monocytes/100 WBC (Bld) 12.3 % Normal 1.7-13.0 [facility] ([place]) Comment on above: Performed By: #### G FR, CBC, ADIFF, ANEU, CMP ####[address] [place], [place] [address] Neutrophils/100 WBC (Bld) 54.5 % Normal 37.0-80.0 [facility] ([place]) Comment on above: Performed By: #### G FR, CBC, ADIFF, ANEU, CMP ####[address] [place], [place] [address] .GFRon 07-19-2023 GFR 101 ml/min/1.73sqm Normal [facility] ([place]) Comment on above: Result Comment: GFR Population mean for , Non- Americans Ages 20-29 = 116 mL/min/1.73 sq.m. Ages 30-39 = 107 mL/min/1.73 sq.m. Ages 40-49 = 99 mL/min/1.73 sq.m. Ages 50-59 = 93 mL/min/1.73 sq.m. Ages 60-69 = 85 mL/min/1.73 sq.m. Ages 70+ = 75 mL/min/1.73 sq.m. Chronic Kidney Disease: Less than 60 mL/min/1.73 square meters End Stage Renal Disease: Less than 15 mL/min/1.73 square meters Performed By: #### G FR, CBC, ADIFF, ANEU, CMP ####[address] [place], [place] [address] GFR Non- 84 ml/min/1.73sqm Normal [facility] ([place]) Comment on above: Result Comment: GFR Population mean for , Non- Americans Ages 20-29 = 116 mL/min/1.73 sq.m. Ages 30-39 = 107 mL/min/1.73 sq.m. Ages 40-49 = 99 mL/min/1.73 sq.m. Ages 50-59 = 93 mL/min/1.73 sq.m. Ages 60-69 = 85 mL/min/1.73 sq.m. Ages 70+ = 75 mL/min/1.73 sq.m. Chronic Kidney Disease: Less than 60 mL/min/1.73 square meters End Stage Renal Disease: Less than 15 mL/min/1.73 square meters Performed By: #### G FR, CBC, ADIFF, ANEU, CMP ####[address] [place], [place] [address] .NEUABSon 07-19-2023 Neutrophil, Absolute 4.5 10 3/mcL Normal 2.9-6.2 [facility] ([place]) Comment on above: Performed By: #### G FR, CBC, ADIFF, ANEU, CMP ####[address] [place], [place] [address] CBCon 07-19-2023 Erythrocyte distribution width (RBC) [Ratio] 13.7 % Normal 11.5-14.5 [facility] ([place]) Comment on above: Performed By: #### G FR, CBC, ADIFF, ANEU, CMP ####[address] [place], [place] [address] Hematocrit (Bld) [Volume fraction] 32.8 % Low 42.0-52.0 [facility] ([place]) Comment on above: Performed By: #### G FR, CBC, ADIFF, ANEU, CMP ####[address] [place], [place] [address] Hgb 11.2 G/dL Low 14.0-18.0 [facility] ([place]) Comment on above: Performed By: #### G FR, CBC, ADIFF, ANEU, CMP ####[address] [place], [place] [address] MCH (RBC) [Entitic mass] 28.3 pg Normal 27.0-31.2 [facility] ([place]) Comment on above: Performed By: #### G FR, CBC, ADIFF, ANEU, CMP ####[address] [place], [place] [address] MCHC 34.1 G/dL Normal 31.8-35.4 [facility] ([place]) Comment on above: Performed By: #### G FR, CBC, ADIFF, ANEU, CMP ####[address] [place], [place] [address] MCV (RBC) [Entitic vol] 82.9 fL Normal 80.0-94.0 [facility] ([place] Comment on above: Performed By: #### G FR, CBC, ADIFF, ANEU, CMP ####[address] [place], [place] [address] Platelet 243 10 3/mcL Normal 130-400 [facility] ([place]) Comment on above: Performed By: #### G FR, CBC, ADIFF, ANEU, CMP ####[address] [place], [place] [address] Platelet mean volume (Bld) [Entitic vol] 8.3 fL Normal 7.4-10.4 [facility] ([place]) Comment on above: Performed By: #### G FR, CBC, ADIFF, ANEU, CMP ####[address] [place], [place] [address] RBC 3.95 10 6/mcL Low 4.04-6.13 [facility] ([place]) Comment on above: Performed By: #### Luisa FR, CBC, ADIFF, ANEU, CMP ####[address] [place], [place] [address] WBC 8.2 10 3/mcL Normal 4.6-10.8 [facility] ([place]) Comment on above: Performed By: #### Luisa FR, CBC, ADIFF, ANEU, CMP ####[address] [place], [place] [address] CMPon 07-19-2023 Albumin Level 3.5 G/dL Normal 3.4-4.8 [facility] ([place]) Comment on above: Performed By: #### G FR, CBC, ADIFF, ANEU, CMP ####[address] [place], [place] [address] Albumin/Globulin [Mass ratio] 1.1 {ratio} Normal 1.1-2.5 [facility] ([place]) Comment on above: Performed By: #### G FR, CBC, ADIFF, ANEU, CMP ####[address] [place], [place] [address] ALP [Catalytic activity/Vol] 77 U/L Normal 40-135 [facility] ([place]) Comment on above: Performed By: #### G FR, CBC, ADIFF, ANEU, CMP ####[address] [place], [place] [address] ALT [Catalytic activity/Vol] 23 U/L Normal 16-63 [facility] ([place]) Comment on above: Performed By: #### G FR, CBC, ADIFF, ANEU, CMP ####[address] [place], [place] [address] AST [Catalytic activity/Vol] 20 U/L Normal 10-40 [facility] ([place]) Comment on above: Performed By: #### G FR, CBC, ADIFF, ANEU, CMP ####[address] [place], [place] [address] Bili Total 0.4 mg/dL Normal 0.2-1.0 [facility] ([place]) Comment on above: Result Comment: Use of this assay is not recommended for patients undergoing treatment with eltrombopag due to the potential for falsely elevated results. Performed By: #### G FR, CBC, ADIFF, ANEU, CMP ####[address] [place], [place] [address] BUN/Creatinine Ratio 19 ratio Normal 7-27 [facility] ([place]) Comment on above: Performed By: #### G FR, CBC, ADIFF, ANEU, CMP ####[address] [place], [place] [address] Calcium [Mass/Vol] 9.0 mg/dL Normal 8.4-10.2 [facility] ([place]) Comment on above: Performed By: #### G FR, CBC, ADIFF, ANEU, CMP ####[address] [place], [place] [address] Chloride [Moles/Vol] 102 mmol/L Normal 98-107 [facility] ([place]) Comment on above: Performed By: #### G FR, CBC, ADIFF, ANEU, CMP ####[address] [place], [place] [address] CO2 [Moles/Vol] 29 mmol/L Normal 23-31 [facility] ([place]) Comment on above: Performed By: #### G FR, CBC, ADIFF, ANEU, CMP ####[address] [place], [place] [address] Creatinine [Mass/Vol] 0.88 mg/dL Normal 0.70-1.30 [facility] ([place]) Comment on above: Performed By: #### G FR, CBC, ADIFF, ANEU, CMP ####[address] [place], [place] [address] Electrolyte Balance 8.0 mEq/L Normal 4.0-15.0 [facility] ([place]) Comment on above: Performed By: #### G FR, CBC, ADIFF, ANEU, CMP ####[address] [place], [place] [address] Globulin 3.1 G/dL Normal [facility] ([place] Comment on above: Performed By: #### G FR, CBC, ADIFF, ANEU, CMP ####[address] [place], [place] [address] Glucose [Mass/Vol] 157 mg/dL High 83-110 [facility] ([place]) Comment on above: Performed By: #### G FR, CBC, ADIFF, ANEU, CMP ####[address] [place], [place] [address] Potassium [Moles/Vol] 4.2 mmol/L Normal 3.5-5.1 [facility] ([place]) Comment on above: Performed By: #### G FR, CBC, ADIFF, ANEU, CMP ####[address] [place], [place] [address] Sodium [Moles/Vol] 139 mmol/L Normal 136-145 [facility] ([place]) Comment on above: Performed By: #### G FR, CBC, ADIFF, ANEU, CMP ####[address] [place], [place] [address] Total Protein 6.6 G/dL Normal 6.4-8.2 [facility] ([place]) Comment on above: Performed By: #### G FR, CBC, ADIFF, ANEU, CMP ####[address] [address] Urea nitrogen [Mass/Vol] 17 mg/dL Normal 7-18 [facility] ([place] Comment on above: Performed By: #### G FR, CBC, ADIFF, ANEU, CMP ####[address] [address] .Auto Diffon 07-07-2023 Basophil, Absolute 0.1 10 3/mcL Normal 0.0-0.3 [facility] ([place] Comment on above: Performed By: #### C BC, MG, ANEU, CMP, ADIFF, GFR ####[address] [address] Basophils/100 WBC (Bld) 2.0 % Normal 0.0-2.5 [facility] ([place]) Comment on above: Performed By: #### C BC, MG, ANEU, CMP, ADIFF, GFR ####[address] [address] Eosinophil, Absolute 0.3 10 3/mcL Normal 0.0-0.7 [facility] ([place]) Comment on above: Performed By: #### C BC, MG, ANEU, CMP, ADIFF, GFR ####[address] [address] Eosinophils/100 WBC (Bld) 5.4 % Normal 0.0-6.0 [facility] ([place]) Comment on above: Performed By: #### C BC, MG, ANEU, CMP, ADIFF, GFR ####[address] [address] Lymphocyte, Absolute 1.4 10 3/mcL Normal 0.9-4.3 [facility] ([place]) Comment on above: Performed By: #### C BC, MG, ANEU, CMP, ADIFF, GFR ####[address] [address] Lymphocytes/100 WBC (Bld) 21.9 % Normal 20.0-40.0 [facility] ([place]) Comment on above: Performed By: #### C BC, MG, ANEU, CMP, ADIFF, GFR ####[address] [address] Monocyte, Absolute 0.6 10 3/mcL Normal 0.1-1.4 [facility] ([place] Comment on above: Performed By: #### C BC, MG, ANEU, CMP, ADIFF, GFR ####[address] [address] Monocytes/100 WBC (Bld) 9.8 % Normal 2.0-13.0 [facility] ([place]) Comment on above: Performed By: #### C BC, MG, ANEU, CMP, ADIFF, GFR ####[address] [address] Neutrophils/100 WBC (Bld) 60.9 % Normal 50.0-75.0 [facility] ([place]) Comment on above: Performed By: #### C BC, MG, ANEU, CMP, ADIFF, GFR ####[address] [address] .GFRon 07-07-2023 GFR Non- >60 Normal [facility] ([place] Comment on above: Result Comment: GFR Population mean for , Non- Americans Ages 20-29 = 116 mL/min/1.73 sq.m. Ages 30-39 = 107 mL/min/1.73 sq.m. Ages 40-49 = 99 mL/min/1.73 sq.m. Ages 50-59 = 93 mL/min/1.73 sq.m. Ages 60-69 = 85 mL/min/1.73 sq.m. Ages 70+ = 75 mL/min/1.73 sq.m. Chronic Kidney Disease: Less than 60 mL/min/1.73 square meters End Stage Renal Disease: Less than 15 mL/min/1.73 square meters Performed By: #### C BC, MG, ANEU, CMP, ADIFF, GFR ####[address] [address] GFR >60 Normal [facility] ([place] Comment on above: Result Comment: GFR Population mean for , Non- Americans Ages 20-29 = 116 mL/min/1.73 sq.m. Ages 30-39 = 107 mL/min/1.73 sq.m. Ages 40-49 = 99 mL/min/1.73 sq.m. Ages 50-59 = 93 mL/min/1.73 sq.m. Ages 60-69 = 85 mL/min/1.73 sq.m. Ages 70+ = 75 mL/min/1.73 sq.m. Chronic Kidney Disease: Less than 60 mL/min/1.73 square meters End Stage Renal Disease: Less than 15 mL/min/1.73 square meters Performed By: #### C BC, MG, ANEU, CMP, ADIFF, GFR ####[address] [address] .NEUABSon 07-07-2023 Neutrophil, Absolute 3.8 10 3/mcL Normal 2.3-8.1 [facility] ([place]) Comment on above: Performed By: #### C BC, MG, ANEU, CMP, ADIFF, GFR ####[place] [address] CBCon 07-07-2023 Erythrocyte distribution width (RBC) [Ratio] 13.2 % Normal 11.5-15.5 [facility] ([place]) Comment on above: Performed By: #### C BC, MG, ANEU, CMP, ADIFF, GFR ####[place] [address] Hematocrit (Bld) [Volume fraction] 29.1 % Low 40.0-52.0 [facility] ([place]) Comment on above: Performed By: #### C BC, MG, ANEU, CMP, ADIFF, GFR ####[place] [address] Hgb 9.9 G/dL Low 13.0-17.5 [facility] ([place]) Comment on above: Performed By: #### C BC, MG, ANEU, CMP, ADIFF, GFR ####[place] [address] MCH (RBC) [Entitic mass] 29.6 pg Normal 27.0-33.0 [facility] ([place]) Comment on above: Performed By: #### C BC, MG, ANEU, CMP, ADIFF, GFR ####[place] [address] MCHC 34.2 G/dL Normal 32.0-36.0 [facility] ([place] Comment on above: Performed By: #### C BC, MG, ANEU, CMP, ADIFF, GFR ####[place] [address] MCV (RBC) [Entitic vol] 86.5 fL Normal 81.0-100.0 [facility] ([place]) Comment on above: Performed By: #### C BC, MG, ANEU, CMP, ADIFF, GFR ####[place] [address] Platelet 207 10 3/mcL Normal 150-450 [facility] ([place]) Comment on above: Performed By: #### C BC, MG, ANEU, CMP, ADIFF, GFR ####[place] [address] Platelet mean volume (Bld) [Entitic vol] 8.5 fL Normal 6.4-10.5 [facility] ([place] Comment on above: Performed By: #### C BC, MG, ANEU, CMP, ADIFF, GFR ####[place] [address] RBC 3.36 10 6/mcL Low 4.50-6.00 [facility] ([place] Comment on above: Performed By: #### C BC, MG, ANEU, CMP, ADIFF, GFR ####[place] [address] WBC 6.2 10 3/mcL Normal 4.5-10.8 [facility] ([place]) Comment on above: Performed By: #### C BC, MG, ANEU, CMP, ADIFF, GFR ####[place] [address] CMPon 07-07-2023 Albumin Level 3.1 G/dL Low 3.2-4.8 [facility] ([place]) Comment on above: Performed By: #### C BC, MG, ANEU, CMP, ADIFF, GFR ####[place] [address] Albumin/Globulin [Mass ratio] 1.1 {ratio} Normal 0.9-1.6 [facility] ([place]) Comment on above: Performed By: #### C BC, MG, ANEU, CMP, ADIFF, GFR ####[address] [address] ALP [Catalytic activity/Vol] 57 U/L Normal 38-126 [facility] ([place] Comment on above: Performed By: #### C BC, MG, ANEU, CMP, ADIFF, GFR ####[place] [address] ALT [Catalytic activity/Vol] 16 U/L Normal 12-55 [facility] ([place]) Comment on above: Performed By: #### C BC, MG, ANEU, CMP, ADIFF, GFR ####[place] [address] AST [Catalytic activity/Vol] 40 U/L High 8-34 [facility] ([place] Comment on above: Performed By: #### C BC, MG, ANEU, CMP, ADIFF, GFR ####[place] [id number] Bili Total 0.50 mg/dL Normal 0.20-1.20 [facility] ([place] Comment on above: Result Comment: Use of this assay is not recommended for patients undergoing treatment with eltrombopag due to the potential for falsely elevated results. Performed By: #### C BC, MG, ANEU, CMP, ADIFF, GFR ####[place] [address] BUN/Creatinine Ratio 16.1 ratio Normal 10.0-22.0 [facility] ([place] Comment on above: Performed By: #### C BC, MG, ANEU, CMP, ADIFF, GFR ####[address] [address] Calcium [Mass/Vol] 8.5 mg/dL Low 8.7-10.4 [facility] ([place] Comment on above: Performed By: #### C BC, MG, ANEU, CMP, ADIFF, GFR ####[address] [address] Chloride [Moles/Vol] 107 mmol/L Normal 98-110 [facility] ([place] Comment on above: Performed By: #### C BC, MG, ANEU, CMP, ADIFF, GFR ####[address] [address] CO2 [Moles/Vol] 24 mmol/L Normal 22-32 [facility] ([place]) Comment on above: Performed By: #### C BC, MG, ANEU, CMP, ADIFF, GFR ####[place] [address] Creatinine [Mass/Vol] 0.87 mg/dL Normal 0.60-1.40 [facility] ([place]) Comment on above: Performed By: #### C BC, MG, ANEU, CMP, ADIFF, GFR ####[place] [address] Electrolyte Balance 7.0 mEq/L Normal 4.0-15.0 [facility] ([place]) Comment on above: Performed By: #### C BC, MG, ANEU, CMP, ADIFF, GFR ####[place] [address] Globulin 2.8 G/dL Normal 1.5-3.8 [facility] ([place]) Comment on above: Performed By: #### C BC, MG, ANEU, CMP, ADIFF, GFR ####[place] [address] Glucose [Mass/Vol] 137 mg/dL High 82-115 [facility] ([place] Comment on above: Performed By: #### C BC, MG, ANEU, CMP, ADIFF, GFR ####[place] [address] Potassium [Moles/Vol] 3.7 mmol/L Normal 3.5-5.0 [facility] ([place]) Comment on above: Performed By: #### C BC, MG, ANEU, CMP, ADIFF, GFR ####[place] [address] Sodium [Moles/Vol] 138 mmol/L Normal 136-145 [facility] ([place] Comment on above: Performed By: #### C BC, MG, ANEU, CMP, ADIFF, GFR ####[place] [id number] [place] [address] Total Protein 5.9 G/dL Normal 5.7-8.2 [facility] ([place]) Comment on above: Result Comment: No te - New Reference Range in effect 19 Performed By: #### C BC, MG, ANEU, CMP, ADIFF, GFR ####[place] [id number] [place] [address] Urea nitrogen [Mass/Vol] 14.0 mg/dL Normal 8.0-22.0 [facility] ([place]) Comment on above: Performed By: #### C BC, MG, ANEU, CMP, ADIFF, GFR ####[facility] [place] [address] LABORATORYOrdered By: Gerry Browning on 07-07-2023 Blood Glucose Testing Reason Routine (07/07/23 7:59 AM) [facility] Glucose [Mass/Vol] 125 mg/dL High 82 - 115 mg/dL [facility] LABORATORYOrdered By: SYSTEM SYSTEM on 07-07-2023 Albumin BCP dye [Mass/Vol] 3.1 G/dL Low 3.2 - 4.8 G/dL ADM SS Albumin/Globulin [Mass ratio] 1.1 {ratio} Normal 0.9 - 1.6 ratio AH ADM SS ALP [Catalytic activity/Vol] 57 U/L Normal 38 - 126 U/L ADM SS ALT No additional P-5'-P [Catalytic activity/Vol] 16 U/L Normal 12 - 55 U/L ADM SS AST [Catalytic activity/Vol] 40 U/L High 8 - 34 U/L ADM SS Basophils (Bld) [#/Vol] 0.1 103/mcL Normal 0.0 - 0.3 10^3/mcL Workflow SS Basophils/100 WBC (Bld) 2.0 % Normal 0.0 - 2.5 % Workflow SS Bilirubin [Mass/Vol] 0.50 mg/dL Normal 0.20 - 1.20 mg/dL ADM SS Comment on above: Interpretive Data: U se of this assay is not recommended for patients undergoing treatment with eltrombopag due to the potential for falsely elevated results. Calcium [Mass/Vol] 8.5 mg/dL Low 8.7 - 10. 4 mg/dL ADM SS Chloride [Moles/Vol] 107 mmol/L Normal 98 - 11 0 mEq/L ADM SS CO2 [Moles/Vol] 24 mmol/L Normal 22 - 32 mEq/L ADM SS Creatinine [Mass/Vol] 0.87 mg/dL Normal 0.60 - 1.40 mg/dL ADM SS Electrolyte Balance 7.0 mEq/L Normal 4.0 - 15 .0 mEq/L ADM SS Eosinophils (Bld) [#/Vol] 0.3 103/mcL Normal 0.0 - 0.7 10^3/mcL Workflow SS Eosinophils/100 WBC (Bld) 5.4 % Normal 0.0 - 6.0 % Workflow SS Erythrocyte distribution width (RBC) [Ratio] 13.2 % Normal 11.5 - 15.5 % Workflow SS GFR/1.73 sq M.predicted among blacks MDRD (S/P/Bld) [Vol rate/Area] ml/min/1.73sqm Invalid Interpretation Code ADM Comment on above: Interpretive Data: GFR Population mean for , Non- Americans Ages 20-29 = 116 mL/min/1.73 sq.m. Ages 30-39 = 107 mL/min/1.73 sq.m. Ages 40-49 = 99 mL/min/1.73 sq.m. Ages 50-59 = 93 mL/min/1.73 sq.m. Ages 60-69 = 85 mL/min/1.73 sq.m. Ages 70+ = 75 mL/min/1.73 sq.m. Chronic Kidney Disease: Less than 60 mL/min/1.73 square meters End Stage Renal Disease: Less than 15 mL/min/1.73 square meters GFR/1.73 sq M.predicted among non-blacks MDRD (S/P/Bld) [Vol rate/Area] ml/min/1.73sqm Invalid Interpretation Code ADM Comment on above: Interpretive Data: GFR Population mean for , Non- Americans Ages 20-29 = 116 mL/min/1.73 sq.m. Ages 30-39 = 107 mL/min/1.73 sq.m. Ages 40-49 = 99 mL/min/1.73 sq.m. Ages 50-59 = 93 mL/min/1.73 sq.m. Ages 60-69 = 85 mL/min/1.73 sq.m. Ages 70+ = 75 mL/min/1.73 sq.m. Chronic Kidney Disease: Less than 60 mL/min/1.73 square meters End Stage Renal Disease: Less than 15 mL/min/1.73 square meters Globulin 2.8 G/dL Normal 1.5 - 3.8 G/dL AH ADM SS Glucose [Mass/Vol] 137 mg/dL High 82 - 115 mg/dL AH ADM SS Hematocrit (Bld) [Volume fraction] 29.1 % Low 40.0 - 52.0 % AH Workflow SS Hemoglobin (Bld) [Mass/Vol] 9.9 G/dL Low 13.0 - 17.5 G/dL AH Workflow SS Lymphocytes (Bld) [#/Vol] 1.4 103/mcL Normal 0.9 - 4.3 10^3/mcL AH Workflow SS Lymphocytes/100 WBC (Bld) 21.9 % Normal 20.0 - 40.0 % AH Workflow SS MCH (RBC) [Entitic mass] 29.6 pg Normal 27.0 - 33.0 pg AH Workflow SS MCHC 34.2 G/dL Normal 32.0 - 36.0 G/dL AH Workflow SS MCV (RBC) [Entitic vol] 86.5 fL Normal 81.0 - 100.0 fL AH Workflow SS Monocytes (Bld) [#/Vol] 0.6 103/mcL Normal 0.1 - 1.4 10^3/mcL AH Workflow SS Monocytes/100 WBC (Bld) 9.8 % Normal 2.0 - 13.0 % AH Workflow SS Neutrophils (Bld) [#/Vol] 3.8 103/mcL Normal 2.3 - 8.1 10^3/mcL AH Workflow SS Neutrophils/100 WBC (Bld) 60.9 % Normal 50.0 - 75.0 % AH Workflow SS Platelet mean volume (Bld) [Entitic vol] 8.5 fL Normal 6.4 - 10.5 fL AH Workflow SS Platelets (Bld) [#/Vol] 207 103/mcL Normal 150 - 450 10^3/mcL AH Workflow SS Potassium [Moles/Vol] 3.7 mmol/L Normal 3.5 - 5.0 mEq/L AH ADM SS Protein [Mass/Vol] 5.9 G/dL Normal 5.7 - 8.2 G/dL AH ADM SS Comment on above: Interpretive Data: * *Note - New Reference Range in effect 19 RBC (Bld) [#/Vol] 3.36 106/mcL Low 4.50 - 6.0 0 10^6/mcL AH Workflow SS Sodium [Moles/Vol] 138 mmol/L Normal 136 - 145 mEq/L AH ADM SS Urea nitrogen [Mass/Vol] 14.0 mg/dL Normal 8.0 - 22.0 mg/dL AH ADM SS Urea nitrogen/Creatinine [Mass ratio] 16.1 ratio Normal 10.0 - 22.0 ratio AH ADM SS WBC (Bld) [#/Vol] 6.2 103/mcL Normal 4.5 - 10.8 10^3/mcL Workflow SS Laboratory - Chemistry and C hemistry - challengeOrdered By: SYSTEM SYSTEM on 07-07-2023 Magnesium [Mass/Vol] 2.0 mg/dL Normal 1.6 - 2 .4 mg/dL ADM SS MGon 07-07-2023 Magnesium [Mass/Vol] 2.0 mg/dL Normal 1.6-2.4 [facility] ([place] Comment on above: Performed By: #### C BC, MG, ANEU, CMP, ADIFF, GFR ####[address] [address] Magnesium [Mass/Vol] 2.0 mg/dL Normal 1.6-2.4 [facility] ([place]) Comment on above: Performed By: #### L IPID, GFR, A1C, CMP #### Sam[address] [address] .Auto Diffon 07-06-2023 Basophil, Absolute 0.1 10 3/mcL Normal 0.0-0.3 [facility] ([place]) Comment on above: Performed By: #### L IPID, GFR, A1C, CMP #### Samy [address] [address] Basophils/100 WBC (Bld) 1.3 % Normal 0.0-2.5 [facility] ([place]) Comment on above: Performed By: #### L IPID, GFR, A1C, CMP #### [address] [address] Eosinophil, Absolute 0.4 10 3/mcL Normal 0.0-0.7 [facility] ([place]) Comment on above: Performed By: #### L IPID, GFR, A1C, CMP #### [address] [address] Eosinophils/100 WBC (Bld) 5.4 % Normal 0.0-6.0 [facility] ([place]) Comment on above: Performed By: #### L IPID, GFR, A1C, CMP #### [address] [address] Lymphocyte, Absolute 1.4 10 3/mcL Normal 0.9-4.3 [facility] ([place]) Comment on above: Performed By: #### L IPID, GFR, A1C, CMP #### [address] [address] Lymphocytes/100 WBC (Bld) 20.2 % Normal 20.0-40.0 [facility] ([place]) Comment on above: Performed By: #### L IPID, GFR, A1C, CMP #### [address] [address] Monocyte, Absolute 0.6 10 3/mcL Normal 0.1-1.4 [facility] ([place]) Comment on above: Performed By: #### L IPID, GFR, A1C, CMP #### [address] [address] Monocytes/100 WBC (Bld) 9.1 % Normal 2.0-13.0 [facility] ([place]) Comment on above: Performed By: #### L IPID, GFR, A1C, CMP #### [address] [address] Neutrophils/100 WBC (Bld) 64.0 % Normal 50.0-75.0 [facility] ([place]) Comment on above: Performed By: #### L IPID, GFR, A1C, CMP #### [address] [address] .GFRon 07-06-2023 GFR >60 Normal [facility] ([place]) Comment on above: Result Comment: GFR Population mean for , Non- Americans Ages 20-29 = 116 mL/min/1.73 sq.m. Ages 30-39 = 107 mL/min/1.73 sq.m. Ages 40-49 = 99 mL/min/1.73 sq.m. Ages 50-59 = 93 mL/min/1.73 sq.m. Ages 60-69 = 85 mL/min/1.73 sq.m. Ages 70+ = 75 mL/min/1.73 sq.m. Chronic Kidney Disease: Less than 60 mL/min/1.73 square meters End Stage Renal Disease: Less than 15 mL/min/1.73 square meters Performed By: #### L IPID, GFR, A1C, CMP #### [address] [address] GFR Non- >60 Normal [facility] ([place]) Comment on above: Result Comment: GFR Population mean for , Non- Americans Ages 20-29 = 116 mL/min/1.73 sq.m. Ages 30-39 = 107 mL/min/1.73 sq.m. Ages 40-49 = 99 mL/min/1.73 sq.m. Ages 50-59 = 93 mL/min/1.73 sq.m. Ages 60-69 = 85 mL/min/1.73 sq.m. Ages 70+ = 75 mL/min/1.73 sq.m. Chronic Kidney Disease: Less than 60 mL/min/1.73 square meters End Stage Renal Disease: Less than 15 mL/min/1.73 square meters Performed By: #### L IPID, GFR, A1C, CMP #### [address] [address] .NEUABSon 07-06-2023 Neutrophil, Absolute 4.4 10 3/mcL Normal 2.3-8.1 [facility] ([place]) Comment on above: Performed By: #### L IPID, GFR, A1C, CMP #### [address] [address] CBCon 07-06-2023 Erythrocyte distribution width (RBC) [Ratio] 13.0 % Normal 11.5-15.5 [facility] ([place]) Comment on above: Performed By: #### L IPID, GFR, A1C, CMP #### [address] [address] Hematocrit (Bld) [Volume fraction] 30.1 % Low 40.0-52.0 [facility] ([place]) Comment on above: Performed By: #### L IPID, GFR, A1C, CMP #### [address] [address] Hgb 10.3 G/dL Low 13.0-17.5 [facility] ([place]) Comment on above: Performed By: #### L IPID, GFR, A1C, CMP #### [address] [address] MCH (RBC) [Entitic mass] 29.7 pg Normal 27.0-33.0 [facility] ([place]) Comment on above: Performed By: #### L IPID, GFR, A1C, CMP #### [address] [address] MCHC 34.3 G/dL Normal 32.0-36.0 [facility] ([place]) Comment on above: Performed By: #### L IPID, GFR, A1C, CMP #### [address] [address] MCV (RBC) [Entitic vol] 86.8 fL Normal 81.0-100.0 [facility] ([place]) Comment on above: Performed By: #### L IPID, GFR, A1C, CMP #### [address] [address] Platelet 215 10 3/mcL Normal 150-450 [facility] ([place]) Comment on above: Performed By: #### L IPID, GFR, A1C, CMP #### [address] [address] Platelet mean volume (Bld) [Entitic vol] 8.3 fL Normal 6.4-10.5 [facility] ([place]) Comment on above: Performed By: #### L IPID, GFR, A1C, CMP #### [address] [address] RBC 3.47 10 6/mcL Low 4.50-6.00 [facility] ([place]) Comment on above: Performed By: #### L IPID, GFR, A1C, CMP #### [address] [address] WBC 6.9 10 3/mcL Normal 4.5-10.8 [facility] ([place]) Comment on above: Performed By: #### L IPID, GFR, A1C, CMP #### [address] [address] CMPon 07-06-2023 Albumin Level 3.0 G/dL Low 3.2-4.8 [facility] ([place]) Comment on above: Performed By: #### L IPID, GFR, A1C, CMP #### [address] [address] Albumin/Globulin [Mass ratio] 1.1 {ratio} Normal 0.9-1.6 [facility] ([place]) Comment on above: Performed By: #### L IPID, GFR, A1C, CMP #### [address] [address] ALP [Catalytic activity/Vol] 56 U/L Normal 38-126 [facility] ([place]) Comment on above: Performed By: #### L IPID, GFR, A1C, CMP #### [address] [address] ALT [Catalytic activity/Vol] 10 U/L Low 12-55 [facility] ([place]) Comment on above: Performed By: #### L IPID, GFR, A1C, CMP #### [address] [address] AST [Catalytic activity/Vol] 26 U/L Normal 8-34 [facility] ([place]) Comment on above: Performed By: #### L IPID, GFR, A1C, CMP #### [address] [address] Bili Total 0.50 mg/dL Normal 0.20-1.20 [facility] ([place]) Comment on above: Result Comment: Use of this assay is not recommended for patients undergoing treatment with eltrombopag due to the potential for falsely elevated results. Performed By: #### L IPID, GFR, A1C, CMP #### [place] [address] BUN/Creatinine Ratio 15.8 ratio Normal 10.0-22.0 [facility] ([place] Comment on above: Performed By: #### L IPID, GFR, A1C, CMP #### [place] [id number] Calcium [Mass/Vol] 8.6 mg/dL Low 8.7-10.4 [facility] ([place]) Comment on above: Performed By: #### L IPID, GFR, A1C, CMP #### [address] [address] Chloride [Moles/Vol] 109 mmol/L Normal 98-110 [facility] ([place] Comment on above: Performed By: #### L IPID, GFR, A1C, CMP #### [address] [address] CO2 [Moles/Vol] 25 mmol/L Normal 22-32 [facility] ([place]) Comment on above: Performed By: #### L IPID, GFR, A1C, CMP #### [address] [address] Creatinine [Mass/Vol] 0.95 mg/dL Normal 0.60-1.40 [facility] ([place]) Comment on above: Performed By: #### L IPID, GFR, A1C, CMP #### [place] [id number] Electrolyte Balance 5.0 mEq/L Normal 4.0-15.0 [facility] ([place]) Comment on above: Performed By: #### L IPID, GFR, A1C, CMP #### [address] [address] Globulin 2.8 G/dL Normal 1.5-3.8 [facility] ([place]) Comment on above: Performed By: #### L IPID, GFR, A1C, CMP #### [address] [address] Glucose [Mass/Vol] 102 mg/dL Normal 82-115 [facility] ([place]) Comment on above: Performed By: #### L IPID, GFR, A1C, CMP #### [address] [address] Potassium [Moles/Vol] 3.6 mmol/L Normal 3.5-5.0 [facility] ([place]) Comment on above: Performed By: #### L IPID, GFR, A1C, CMP #### [address] [address] Sodium [Moles/Vol] 139 mmol/L Normal 136-145 [facility] ([place]) Comment on above: Performed By: #### L IPID, GFR, A1C, CMP #### [address] [address] Total Protein 5.8 G/dL Normal 5.7-8.2 [facility] ([place]) Comment on above: Result Comment: No te - New Reference Range in effect 19 Performed By: #### L IPID, GFR, A1C, CMP #### [address] [address] Urea nitrogen [Mass/Vol] 15.0 mg/dL Normal 8.0-22.0 [facility] ([place]) Comment on above: Performed By: #### L IPID, GFR, A1C, CMP #### [address] [address] LABORATORYOrdered By: Luciano Ruiz on 07-06-2023 Blood Glucose Testing Reason Routine (07/06/23 9:13 PM) [facility] Glucose [Mass/Vol] 174 mg/dL High 82 - 115 mg/dL [facility] LABORATORYOrdered By: Mara Shook on 07-06-2023 Blood Glucose Testing Reason Routine (07/06/23 3:49 PM) [facility] Glucose [Mass/Vol] 107 mg/dL Normal 82 - 115 mg/dL [facility] LABORATORYOrdered By: [employer] on 07-06-2023 Albumin BCP dye [Mass/Vol] 3.0 G/dL Low 3.2 - 4.8 G/dL ADM SS Albumin/Globulin [Mass ratio] 1.1 {ratio} Normal 0.9 - 1.6 ratio ADM SS ALP [Catalytic activity/Vol] 56 U/L Normal 38 - 126 U/L ADM SS ALT No additional P-5'-P [Catalytic activity/Vol] 10 U/L Low 12 - 55 U/L ADM SS AST [Catalytic activity/Vol] 26 U/L Normal 8 - 34 U/L ADM SS Basophils (Bld) [#/Vol] 0.1 103/mcL Normal 0.0 - 0.3 10^3/mcL Workflow SS Basophils/100 WBC (Bld) 1.3 % Normal 0.0 - 2.5 % Workflow SS Bilirubin [Mass/Vol] 0.50 mg/dL Normal 0.20 - 1.20 mg/dL ADM SS Comment on above: Interpretive Data: U se of this assay is not recommended for patients undergoing treatment with eltrombopag due to the potential for falsely elevated results. Calcium [Mass/Vol] 8.6 mg/dL Low 8.7 - 10. 4 mg/dL AH ADM SS Chloride [Moles/Vol] 109 mmol/L Normal 98 - 11 0 mEq/L ADM SS CO2 [Moles/Vol] 25 mmol/L Normal 22 - 32 mEq/L AH ADM SS Creatinine [Mass/Vol] 0.95 mg/dL Normal 0.60 - 1.40 mg/dL ADM SS Electrolyte Balance 5.0 mEq/L Normal 4.0 - 15 .0 mEq/L ADM Eosinophils (Bld) [#/Vol] 0.4 103/mcL Normal 0.0 - 0.7 10^3/mcL Workflow Eosinophils/100 WBC (Bld) 5.4 % Normal 0.0 - 6.0 % Workflow Erythrocyte distribution width (RBC) [Ratio] 13.0 % Normal 11.5 - 15.5 % Workflow GFR/1.73 sq M.predicted among blacks MDRD (S/P/Bld) [Vol rate/Area] ml/min/1.73sqm Invalid Interpretation Code [facility] Comment on above: Interpretive Data: GFR Population mean for , Non- Americans Ages 20-29 = 116 mL/min/1.73 sq.m. Ages 30-39 = 107 mL/min/1.73 sq.m. Ages 40-49 = 99 mL/min/1.73 sq.m. Ages 50-59 = 93 mL/min/1.73 sq.m. Ages 60-69 = 85 mL/min/1.73 sq.m. Ages 70+ = 75 mL/min/1.73 sq.m. Chronic Kidney Disease: Less than 60 mL/min/1.73 square meters End Stage Renal Disease: Less than 15 mL/min/1.73 square meters GFR/1.73 sq M.predicted among non-blacks MDRD (S/P/Bld) [Vol rate/Area] ml/min/1.73sqm Invalid Interpretation Code [facility] Comment on above: Interpretive Data: GFR Population mean for , Non- Americans Ages 20-29 = 116 mL/min/1.73 sq.m. Ages 30-39 = 107 mL/min/1.73 sq.m. Ages 40-49 = 99 mL/min/1.73 sq.m. Ages 50-59 = 93 mL/min/1.73 sq.m. Ages 60-69 = 85 mL/min/1.73 sq.m. Ages 70+ = 75 mL/min/1.73 sq.m. Chronic Kidney Disease: Less than 60 mL/min/1.73 square meters End Stage Renal Disease: Less than 15 mL/min/1.73 square meters Globulin 2.8 G/dL Normal 1.5 - 3.8 G/dL ADM SS Glucose [Mass/Vol] 102 mg/dL Normal 82 - 115 mg/dL ADM SS Hematocrit (Bld) [Volume fraction] 30.1 % Low 40.0 - 52.0 % AH Workflow SS Hemoglobin (Bld) [Mass/Vol] 10.3 G/dL Low 13.0 - 17.5 G/dL AH Workflow SS Lymphocytes (Bld) [#/Vol] 1.4 103/mcL Normal 0.9 - 4.3 10^3/mcL AH Workflow SS Lymphocytes/100 WBC (Bld) 20.2 % Normal 20.0 - 40.0 % AH Workflow SS Magnesium [Mass/Vol] 2.0 mg/dL Normal 1.6 - 2 .4 mg/dL ADM SS Magnesium [Mass/Vol] 2.1 mg/dL Normal 1.6 - 2 .4 mg/dL ADM SS MCH (RBC) [Entitic mass] 29.7 pg Normal 27.0 - 33.0 pg Workflow SS MCHC 34.3 G/dL Normal 32.0 - 36.0 G/dL Workflow SS MCV (RBC) [Entitic vol] 86.8 fL Normal 81.0 - 100.0 fL Workflow SS Monocytes (Bld) [#/Vol] 0.6 103/mcL Normal 0.1 - 1.4 10^3/mcL AH Workflow SS Monocytes/100 WBC (Bld) 9.1 % Normal 2.0 - 13.0 % AH Workflow SS Neutrophils (Bld) [#/Vol] 4.4 103/mcL Normal 2.3 - 8.1 10^3/mcL Workflow SS Neutrophils/100 WBC (Bld) 64.0 % Normal 50.0 - 75.0 % Workflow SS Platelet mean volume (Bld) [Entitic vol] 8.3 fL Normal 6.4 - 10.5 fL Workflow SS Platelets (Bld) [#/Vol] 215 103/mcL Normal 150 - 450 10^3/mcL AH Workflow SS Potassium [Moles/Vol] 3.6 mmol/L Normal 3.5 - 5.0 mEq/L ADM SS Protein [Mass/Vol] 5.8 G/dL Normal 5.7 - 8.2 G/dL ADM SS Comment on above: Interpretive Data: * *Note - New Reference Range in effect 19 RBC (Bld) [#/Vol] 3.47 106/mcL Low 4.50 - 6.0 0 10^6/mcL AH Workflow SS Sodium [Moles/Vol] 139 mmol/L Normal 136 - 145 mEq/L AH ADM SS Urea nitrogen [Mass/Vol] 15.0 mg/dL Normal 8.0 - 22.0 mg/dL AH ADM SS Urea nitrogen/Creatinine [Mass ratio] 15.8 ratio Normal 10.0 - 22.0 ratio AH ADM SS WBC (Bld) [#/Vol] 6.9 103/mcL Normal 4.5 - 10.8 10^3/mcL AH Workflow SS MGon 07-06-2023 Magnesium [Mass/Vol] 2.0 mg/dL Normal 1.6-2.4 [facility] ([place] Comment on above: Performed By: #### L IPID, GFR, A1C, CMP #### [address] [address] Magnesium [Mass/Vol] 2.1 mg/dL Normal 1.6-2.4 [facility] ([place] Comment on above: Performed By: #### L IPID, GFR, A1C, CMP #### [address] [address] .Auto Diffon 07-05-2023 Basophil, Absolute 0.1 10 3/mcL Normal 0.0-0.3 [facility] ([place] Comment on above: Performed By: #### L IPID, GFR, A1C, CMP #### [address] [address] Basophils/100 WBC (Bld) 1.2 % Normal 0.0-2.5 [facility] ([place]) Comment on above: Performed By: #### L IPID, GFR, A1C, CMP #### [address] [address] Eosinophil, Absolute 0.4 10 3/mcL Normal 0.0-0.7 [facility] ([place]) Comment on above: Performed By: #### L IPID, GFR, A1C, CMP #### [address] [address] Eosinophils/100 WBC (Bld) 5.6 % Normal 0.0-6.0 [facility] ([place]) Comment on above: Performed By: #### L IPID, GFR, A1C, CMP #### [address] [address] Lymphocyte, Absolute 1.6 10 3/mcL Normal 0.9-4.3 [facility] ([place]) Comment on above: Performed By: #### L IPID, GFR, A1C, CMP #### [address] [address] Lymphocytes/100 WBC (Bld) 21.6 % Normal 20.0-40.0 [facility] ([place]) Comment on above: Performed By: #### L IPID, GFR, A1C, CMP #### [address] [address] Monocyte, Absolute 0.6 10 3/mcL Normal 0.1-1.4 [facility] ([place] Comment on above: Performed By: #### L IPID, GFR, A1C, CMP #### [address] [address] Monocytes/100 WBC (Bld) 8.7 % Normal 2.0-13.0 [facility] ([place]) Comment on above: Performed By: #### L IPID, GFR, A1C, CMP #### [address] [address] Neutrophils/100 WBC (Bld) 62.9 % Normal 50.0-75.0 [facility] ([place]) Comment on above: Performed By: #### L IPID, GFR, A1C, CMP #### [address] [address] .GFRon 07-05-2023 GFR >60 Normal [facility] ([place] Comment on above: Result Comment: GFR Population mean for , Non- Americans Ages 20-29 = 116 mL/min/1.73 sq.m. Ages 30-39 = 107 mL/min/1.73 sq.m. Ages 40-49 = 99 mL/min/1.73 sq.m. Ages 50-59 = 93 mL/min/1.73 sq.m. Ages 60-69 = 85 mL/min/1.73 sq.m. Ages 70+ = 75 mL/min/1.73 sq.m. Chronic Kidney Disease: Less than 60 mL/min/1.73 square meters End Stage Renal Disease: Less than 15 mL/min/1.73 square meters Performed By: #### L IPID, GFR, A1C, CMP #### [address] [address] GFR Non- >60 Normal [facility] ([place]) Comment on above: Result Comment: GFR Population mean for , Non- Americans Ages 20-29 = 116 mL/min/1.73 sq.m. Ages 30-39 = 107 mL/min/1.73 sq.m. Ages 40-49 = 99 mL/min/1.73 sq.m. Ages 50-59 = 93 mL/min/1.73 sq.m. Ages 60-69 = 85 mL/min/1.73 sq.m. Ages 70+ = 75 mL/min/1.73 sq.m. Chronic Kidney Disease: Less than 60 mL/min/1.73 square meters End Stage Renal Disease: Less than 15 mL/min/1.73 square meters Performed By: #### L IPID, GFR, A1C, CMP #### [address] [address] .NEUABSon 07-05-2023 Neutrophil, Absolute 4.6 10 3/mcL Normal 2.3-8.1 [facility] ([place]) Comment on above: Performed By: #### L IPID, GFR, A1C, CMP #### [address] [address] CBCon 07-05-2023 Erythrocyte distribution width (RBC) [Ratio] 13.2 % Normal 11.5-15.5 [facility] ([place]) Comment on above: Performed By: #### A COLEEN, CMP, ADIFF, GFR, MG, CBC #### [address] [address] Hematocrit (Bld) [Volume fraction] 30.1 % Low 40.0-52.0 [facility] ([place]) Comment on above: Performed By: #### A COLEEN, CMP, ADIFF, GFR, MG, CBC #### [place] [address] Hgb 10.2 G/dL Low 13.0-17.5 [facility] ([place]) Comment on above: Performed By: #### A COLEEN, CMP, ADIFF, GFR, MG, CBC #### [place] [address] MCH (RBC) [Entitic mass] 29.3 pg Normal 27.0-33.0 [facility] ([place]) Comment on above: Performed By: #### A COLEEN, CMP, ADIFF, GFR, MG, CBC #### [place] [address] MCHC 33.8 G/dL Normal 32.0-36.0 [facility] ([place]) Comment on above: Performed By: #### A COLEEN, CMP, ADIFF, GFR, MG, CBC #### [place] [address] MCV (RBC) [Entitic vol] 86.7 fL Normal 81.0-100.0 [facility] ([place]) Comment on above: Performed By: #### A COLEEN, CMP, ADIFF, GFR, MG, CBC #### [place] [address] Platelet 215 10 3/mcL Normal 150-450 [facility] ([place]) Comment on above: Performed By: #### A COLEEN, CMP, ADIFF, GFR, MG, CBC #### [place] [address] Platelet mean volume (Bld) [Entitic vol] 8.1 fL Normal 6.4-10.5 [facility] ([place]) Comment on above: Performed By: #### A COLEEN, CMP, ADIFF, GFR, MG, CBC #### [place] [address] RBC 3.48 10 6/mcL Low 4.50-6.00 [facility] ([place]) Comment on above: Performed By: #### A COLEEN, CMP, ADIFF, GFR, MG, CBC #### [address] [address] WBC 7.4 10 3/mcL Normal 4.5-10.8 [facility] ([place]) Comment on above: Performed By: #### A COLEEN, CMP, ADIFF, GFR, MG, CBC #### [address] [address] CMPon 07-05-2023 Albumin Level 3.0 G/dL Low 3.2-4.8 [facility] ([place]) Comment on above: Performed By: #### L IPID, GFR, A1C, CMP #### [address] [address] Albumin/Globulin [Mass ratio] 1.1 {ratio} Normal 0.9-1.6 [facility] ([place]) Comment on above: Performed By: #### L IPID, GFR, A1C, CMP #### [address] [address] ALP [Catalytic activity/Vol] 54 U/L Normal 38-126 [facility] ([place]) Comment on above: Performed By: #### L IPID, GFR, A1C, CMP #### [address] [address] ALT [Catalytic activity/Vol] 8 U/L Low 12-55 [facility] ([place]) Comment on above: Performed By: #### L IPID, GFR, A1C, CMP #### [address] [address] AST [Catalytic activity/Vol] 17 U/L Normal 8-34 [facility] ([place]) Comment on above: Performed By: #### L IPID, GFR, A1C, CMP #### [address] [address] Bili Total 0.50 mg/dL Normal 0.20-1.20 [facility] ([place]) Comment on above: Result Comment: Use of this assay is not recommended for patients undergoing treatment with eltrombopag due to the potential for falsely elevated results. Performed By: #### L IPID, GFR, A1C, CMP #### [address] [address] BUN/Creatinine Ratio 12.1 ratio Normal 10.0-22.0 [facility] ([place] Comment on above: Performed By: #### L IPID, GFR, A1C, CMP #### [address] [address] Calcium [Mass/Vol] 8.7 mg/dL Normal 8.7-10.4 [facility] ([place] Comment on above: Performed By: #### L IPID, GFR, A1C, CMP #### [place] [id number] Chloride [Moles/Vol] 107 mmol/L Normal 98-110 [facility] ([place] Comment on above: Performed By: #### L IPID, GFR, A1C, CMP #### [place] [id number] CO2 [Moles/Vol] 26 mmol/L Normal 22-32 [facility] ([place]) Comment on above: Performed By: #### L IPID, GFR, A1C, CMP #### [address] [address] Creatinine [Mass/Vol] 0.91 mg/dL Normal 0.60-1.40 [facility] ([place]) Comment on above: Performed By: #### L IPID, GFR, A1C, CMP #### [address] [address] Electrolyte Balance 7.0 mEq/L Normal 4.0-15.0 [facility] ([place]) Comment on above: Performed By: #### L IPID, GFR, A1C, CMP #### [address] [address] Globulin 2.7 G/dL Normal 1.5-3.8 [facility] ([place] Comment on above: Performed By: #### L IPID, GFR, A1C, CMP #### [address] [address] Glucose [Mass/Vol] 127 mg/dL High 82-115 [facility] ([place] Comment on above: Performed By: #### L IPID, GFR, A1C, CMP #### [address] [address] Potassium [Moles/Vol] 3.6 mmol/L Normal 3.5-5.0 [facility] ([place] Comment on above: Performed By: #### L IPID, GFR, A1C, CMP #### [address] [address] Sodium [Moles/Vol] 140 mmol/L Normal 136-145 [facility] ([place] Comment on above: Performed By: #### L IPID, GFR, A1C, CMP #### [address] [address] Total Protein 5.7 G/dL Normal 5.7-8.2 [facility] ([place]) Comment on above: Result Comment: No te - New Reference Range in effect 19 Performed By: #### L IPID, GFR, A1C, CMP #### [address] [address] Urea nitrogen [Mass/Vol] 11.0 mg/dL Normal 8.0-22.0 [facility] ([place] Comment on above: Performed By: #### L IPID, GFR, A1C, CMP #### [address] [address] LABORATORYOrdered By: SYSTEM SYSTEM on 07-05-2023 Albumin BCP dye [Mass/Vol] 3.0 G/dL Low 3.2 - 4.8 G/dL ADM SS Albumin/Globulin [Mass ratio] 1.1 {ratio} Normal 0.9 - 1.6 ratio ADM SS ALP [Catalytic activity/Vol] 54 U/L Normal 38 - 126 U/L ADM SS ALT No additional P-5'-P [Catalytic activity/Vol] 8 U/L Low 12 - 55 U/L ADM SS AST [Catalytic activity/Vol] 17 U/L Normal 8 - 34 U/L ADM SS Basophils (Bld) [#/Vol] 0.1 103/mcL Normal 0.0 - 0.3 10^3/mcL AH Workflow SS Basophils/100 WBC (Bld) 1.2 % Normal 0.0 - 2.5 % Workflow SS Bilirubin [Mass/Vol] 0.50 mg/dL Normal 0.20 - 1.20 mg/dL ADM SS Comment on above: Interpretive Data: U se of this assay is not recommended for patients undergoing treatment with eltrombopag due to the potential for falsely elevated results. Calcium [Mass/Vol] 8.7 mg/dL Normal 8.7 - 10. 4 mg/dL ADM SS Chloride [Moles/Vol] 107 mmol/L Normal 98 - 11 0 mEq/L ADM SS CO2 [Moles/Vol] 26 mmol/L Normal 22 - 32 mEq/L ADM SS Creatinine [Mass/Vol] 0.91 mg/dL Normal 0.60 - 1.40 mg/dL ADM SS Electrolyte Balance 7.0 mEq/L Normal 4.0 - 15 .0 mEq/L ADM SS Eosinophils (Bld) [#/Vol] 0.4 103/mcL Normal 0.0 - 0.7 10^3/mcL Workflow SS Eosinophils/100 WBC (Bld) 5.6 % Normal 0.0 - 6.0 % Workflow SS Erythrocyte distribution width (RBC) [Ratio] 13.2 % Normal 11.5 - 15.5 % Workflow SS GFR/1.73 sq M.predicted among blacks MDRD (S/P/Bld) [Vol rate/Area] ml/min/1.73sqm Invalid Interpretation Code ADM SS Comment on above: Interpretive Data: GFR Population mean for , Non- Americans Ages 20-29 = 116 mL/min/1.73 sq.m. Ages 30-39 = 107 mL/min/1.73 sq.m. Ages 40-49 = 99 mL/min/1.73 sq.m. Ages 50-59 = 93 mL/min/1.73 sq.m. Ages 60-69 = 85 mL/min/1.73 sq.m. Ages 70+ = 75 mL/min/1.73 sq.m. Chronic Kidney Disease: Less than 60 mL/min/1.73 square meters End Stage Renal Disease: Less than 15 mL/min/1.73 square meters GFR/1.73 sq M.predicted among non-blacks MDRD (S/P/Bld) [Vol rate/Area] ml/min/1.73sqm Invalid Interpretation Code ADM SS Comment on above: Interpretive Data: GFR Population mean for , Non- Americans Ages 20-29 = 116 mL/min/1.73 sq.m. Ages 30-39 = 107 mL/min/1.73 sq.m. Ages 40-49 = 99 mL/min/1.73 sq.m. Ages 50-59 = 93 mL/min/1.73 sq.m. Ages 60-69 = 85 mL/min/1.73 sq.m. Ages 70+ = 75 mL/min/1.73 sq.m. Chronic Kidney Disease: Less than 60 mL/min/1.73 square meters End Stage Renal Disease: Less than 15 mL/min/1.73 square meters Globulin 2.7 G/dL Normal 1.5 - 3.8 G/dL ADM SS Glucose [Mass/Vol] 127 mg/dL High 82 - 115 mg/dL ADM SS Hematocrit (Bld) [Volume fraction] 30.1 % Low 40.0 - 52.0 % AH Workflow SS Hemoglobin (Bld) [Mass/Vol] 10.2 G/dL Low 13.0 - 17.5 G/dL AH Workflow SS Lymphocytes (Bld) [#/Vol] 1.6 103/mcL Normal 0.9 - 4.3 10^3/mcL AH Workflow SS Lymphocytes/100 WBC (Bld) 21.6 % Normal 20.0 - 40.0 % AH Workflow SS MCH (RBC) [Entitic mass] 29.3 pg Normal 27.0 - 33.0 pg AH Workflow SS MCHC 33.8 G/dL Normal 32.0 - 36.0 G/dL AH Workflow SS MCV (RBC) [Entitic vol] 86.7 fL Normal 81.0 - 100.0 fL AH Workflow SS Monocytes (Bld) [#/Vol] 0.6 103/mcL Normal 0.1 - 1.4 10^3/mcL AH Workflow SS Monocytes/100 WBC (Bld) 8.7 % Normal 2.0 - 13.0 % AH Workflow SS Neutrophils (Bld) [#/Vol] 4.6 103/mcL Normal 2.3 - 8.1 10^3/mcL AH Workflow SS Neutrophils/100 WBC (Bld) 62.9 % Normal 50.0 - 75.0 % AH Workflow SS Platelet mean volume (Bld) [Entitic vol] 8.1 fL Normal 6.4 - 10.5 fL AH Workflow SS Platelets (Bld) [#/Vol] 215 103/mcL Normal 150 - 450 10^3/mcL AH Workflow SS Potassium [Moles/Vol] 3.6 mmol/L Normal 3.5 - 5.0 mEq/L AH ADM SS Protein [Mass/Vol] 5.7 G/dL Normal 5.7 - 8.2 G/dL AH ADM SS Comment on above: Interpretive Data: * *Note - New Reference Range in effect 19 RBC (Bld) [#/Vol] 3.48 106/mcL Low 4.50 - 6.0 0 10^6/mcL AH Workflow SS Sodium [Moles/Vol] 140 mmol/L Normal 136 - 145 mEq/L AH ADM SS Urea nitrogen [Mass/Vol] 11.0 mg/dL Normal 8.0 - 22.0 mg/dL AH ADM SS Urea nitrogen/Creatinine [Mass ratio] 12.1 ratio Normal 10.0 - 22.0 ratio AH ADM SS WBC (Bld) [#/Vol] 7.4 103/mcL Normal 4.5 - 10.8 10^3/mcL AH Workflow SS MGon 07-05-2023 Magnesium [Mass/Vol] 2.0 mg/dL Normal 1.6-2.4 [facility] [place] Comment on above: Performed By: #### L IPID, GFR, A1C, CMP #### Samy [id number] [address] Magnesium [Mass/Vol] 2.0 mg/dL Normal 1.6-2.4 [facility] [place] Comment on above: Performed By: #### L IPID, GFR, A1C, CMP #### Samy [id number] [place], [place] [address] .Auto Diffon 07-04-2023 Basophil, Absolute 0.1 10 3/mcL Normal 0.0-0.3 [facility] ([place] Comment on above: Performed By: #### L IPID, GFR, A1C, CMP #### [address] [address] Basophils/100 WBC (Bld) 1.1 % Normal 0.0-2.5 [facility] ([place]) Comment on above: Performed By: #### L IPID, GFR, A1C, CMP #### [address] [address] Eosinophil, Absolute 0.4 10 3/mcL Normal 0.0-0.7 [facility] ([place]) Comment on above: Performed By: #### L IPID, GFR, A1C, CMP #### [address] [address] Eosinophils/100 WBC (Bld) 5.6 % Normal 0.0-6.0 [facility] ([place]) Comment on above: Performed By: #### L IPID, GFR, A1C, CMP #### [address] [address] Lymphocyte, Absolute 1.2 10 3/mcL Normal 0.9-4.3 [facility] ([place]) Comment on above: Performed By: #### L IPID, GFR, A1C, CMP #### [address] [address] Lymphocytes/100 WBC (Bld) 17.7 % Low 20.0-40.0 [facility] ([place]) Comment on above: Performed By: #### L IPID, GFR, A1C, CMP #### [address] [address] Monocyte, Absolute 0.6 10 3/mcL Normal 0.1-1.4 [facility] ([place]) Comment on above: Performed By: #### L IPID, GFR, A1C, CMP #### [address] [address] Monocytes/100 WBC (Bld) 8.6 % Normal 2.0-13.0 [facility] ([place]) Comment on above: Performed By: #### L IPID, GFR, A1C, CMP #### [address] [address] Neutrophils/100 WBC (Bld) 67.0 % Normal 50.0-75.0 [facility] ([place]) Comment on above: Performed By: #### L IPID, GFR, A1C, CMP #### Samy [address] [address] .GFRon 07-04-2023 GFR >60 Normal [facility] ([place]) Comment on above: Result Comment: GFR Population mean for , Non- Americans Ages 20-29 = 116 mL/min/1.73 sq.m. Ages 30-39 = 107 mL/min/1.73 sq.m. Ages 40-49 = 99 mL/min/1.73 sq.m. Ages 50-59 = 93 mL/min/1.73 sq.m. Ages 60-69 = 85 mL/min/1.73 sq.m. Ages 70+ = 75 mL/min/1.73 sq.m. Chronic Kidney Disease: Less than 60 mL/min/1.73 square meters End Stage Renal Disease: Less than 15 mL/min/1.73 square meters Performed By: #### L IPID, GFR, A1C, CMP #### [address] [address] GFR Non- >60 Normal [facility] ([place]) Comment on above: Result Comment: GFR Population mean for , Non- Americans Ages 20-29 = 116 mL/min/1.73 sq.m. Ages 30-39 = 107 mL/min/1.73 sq.m. Ages 40-49 = 99 mL/min/1.73 sq.m. Ages 50-59 = 93 mL/min/1.73 sq.m. Ages 60-69 = 85 mL/min/1.73 sq.m. Ages 70+ = 75 mL/min/1.73 sq.m. Chronic Kidney Disease: Less than 60 mL/min/1.73 square meters End Stage Renal Disease: Less than 15 mL/min/1.73 square meters Performed By: #### L IPID, GFR, A1C, CMP #### [address] [address] .NEUABSon 07-04-2023 Neutrophil, Absolute 4.7 10 3/mcL Normal 2.3-8.1 [facility] ([place]) Comment on above: Performed By: #### L IPID, GFR, A1C, CMP #### [address] [address] CBCon 07-04-2023 Erythrocyte distribution width (RBC) [Ratio] 13.1 % Normal 11.5-15.5 [facility] ([place]) Comment on above: Performed By: #### L IPID, GFR, A1C, CMP #### [address] [address] Hematocrit (Bld) [Volume fraction] 29.3 % Low 40.0-52.0 [facility] ([place]) Comment on above: Performed By: #### L IPID, GFR, A1C, CMP #### [address] [address] Hgb 9.9 G/dL Low 13.0-17.5 [facility] ([place]) Comment on above: Performed By: #### L IPID, GFR, A1C, CMP #### [address] [address] MCH (RBC) [Entitic mass] 29.3 pg Normal 27.0-33.0 [facility] ([place]) Comment on above: Performed By: #### L IPID, GFR, A1C, CMP #### [address] [address] MCHC 33.7 G/dL Normal 32.0-36.0 [facility] ([place]) Comment on above: Performed By: #### L IPID, GFR, A1C, CMP #### [address] [address] MCV (RBC) [Entitic vol] 87.0 fL Normal 81.0-100.0 [facility] ([place]) Comment on above: Performed By: #### L IPID, GFR, A1C, CMP #### [address] [address] Platelet 233 10 3/mcL Normal 150-450 [facility] ([place]) Comment on above: Performed By: #### L IPID, GFR, A1C, CMP #### [address] [address] Platelet mean volume (Bld) [Entitic vol] 7.9 fL Normal 6.4-10.5 [facility] ([place]) Comment on above: Performed By: #### L IPID, GFR, A1C, CMP #### [address] [address] RBC 3.37 10 6/mcL Low 4.50-6.00 [facility] ([place]) Comment on above: Performed By: #### L IPID, GFR, A1C, CMP #### [address] [address] WBC 7.0 10 3/mcL Normal 4.5-10.8 [facility] ([place]) Comment on above: Performed By: #### L IPID, GFR, A1C, CMP #### [address] [address] CMPon 07-04-2023 Albumin Level 2.9 G/dL Low 3.2-4.8 [facility] ([place]) Comment on above: Performed By: #### L IPID, GFR, A1C, CMP #### [address] [address] Albumin/Globulin [Mass ratio] 1.2 {ratio} Normal 0.9-1.6 [facility] ([place]) Comment on above: Performed By: #### L IPID, GFR, A1C, CMP #### [address] [address] ALP [Catalytic activity/Vol] 56 U/L Normal 38-126 [facility] ([place]) Comment on above: Performed By: #### L IPID, GFR, A1C, CMP #### [address] [address] ALT [Catalytic activity/Vol] 9 U/L Low 12-55 [facility] ([place]) Comment on above: Performed By: #### L IPID, GFR, A1C, CMP #### [address] [address] AST [Catalytic activity/Vol] 17 U/L Normal 8-34 [facility] ([place]) Comment on above: Performed By: #### L IPID, GFR, A1C, CMP #### [address] [address] Bili Total 0.50 mg/dL Normal 0.20-1.20 [facility] ([place]) Comment on above: Result Comment: Use of this assay is not recommended for patients undergoing treatment with eltrombopag due to the potential for falsely elevated results. Performed By: #### L IPID, GFR, A1C, CMP #### [address] [address] BUN/Creatinine Ratio 12.6 ratio Normal 10.0-22.0 [facility] ([place] Comment on above: Performed By: #### L IPID, GFR, A1C, CMP #### [address] [address] Calcium [Mass/Vol] 8.6 mg/dL Low 8.7-10.4 [facility] ([place]) Comment on above: Performed By: #### L IPID, GFR, A1C, CMP #### [address] [address] Chloride [Moles/Vol] 108 mmol/L Normal 98-110 [facility] ([place]) Comment on above: Performed By: #### L IPID, GFR, A1C, CMP #### [address] [address] CO2 [Moles/Vol] 27 mmol/L Normal 22-32 [facility] ([place]) Comment on above: Performed By: #### L IPID, GFR, A1C, CMP #### [address] [address] Creatinine [Mass/Vol] 0.87 mg/dL Normal 0.60-1.40 [facility] ([place]) Comment on above: Performed By: #### L IPID, GFR, A1C, CMP #### [address] [address] Electrolyte Balance 7.0 mEq/L Normal 4.0-15.0 [facility] ([place]) Comment on above: Performed By: #### L IPID, GFR, A1C, CMP #### [address] [address] Globulin 2.5 G/dL Normal 1.5-3.8 [facility] ([place]) Comment on above: Performed By: #### L IPID, GFR, A1C, CMP #### [address] [address] Glucose [Mass/Vol] 122 mg/dL High 82-115 [facility] ([place]) Comment on above: Performed By: #### L IPID, GFR, A1C, CMP #### [address] [address] Potassium [Moles/Vol] 4.0 mmol/L Normal 3.5-5.0 [facility] ([place]) Comment on above: Performed By: #### L IPID, GFR, A1C, CMP #### [address] [address] Sodium [Moles/Vol] 142 mmol/L Normal 136-145 [facility] ([place]) Comment on above: Performed By: #### L IPID, GFR, A1C, CMP #### [address] [address] Total Protein 5.4 G/dL Low 5.7-8.2 [facility] ([place]) Comment on above: Result Comment: No te - New Reference Range in effect 19 Performed By: #### L IPID, GFR, A1C, CMP #### [address] [address] Urea nitrogen [Mass/Vol] 11.0 mg/dL Normal 8.0-22.0 [facility] ([place]) Comment on above: Performed By: #### L IPID, GFR, A1C, CMP #### [address] [address] LABORATORYOrdered By: Jovany baljeet Dallin on 07-04-2023 Cholesterol [Mass/Vol] 208 mg/dL High 50 - 199 mg/dL AH ADM SS Comment on above: Interpretive Data: C holesterol Reference Interval: Less than 200 Desirable 200-239 Borderline high risk 240 and above High risk Cholesterol in HDL [Mass/Vol] 25 mg/dL Low 40 - 59 mg/dL AH ADM SS Cholesterol in LDL [Mass/Vol] 157 mg/dL High 0 - 129 mg/dL AH ADM SS Triglyceride [Mass/Vol] 130 mg/dL Normal 3 - 149 mg/dL AH ADM SS LIPIDon 07-04-2023 Cholesterol [Mass/Vol] 208 mg/dL High 50-199 [facility] ([place]) Comment on above: Result Comment: Chol esterol Reference Interval: Less than 200 Desirable 200-239 Borderline high risk 240 and above High risk Performed By: #### L IPID, GFR, A1C, CMP #### [address] [address] Cholesterol in HDL [Mass/Vol] 25 mg/dL Low 40-59 [facility] ([place]) Comment on above: Performed By: #### L IPID, GFR, A1C, CMP #### [address] [address] Cholesterol in LDL [Mass/Vol] 157 mg/dL High 0-129 [facility] ([place]) Comment on above: Performed By: #### L IPID, GFR, A1C, CMP #### [address] [address] Triglyceride [Mass/Vol] 130 mg/dL Normal 3-149 [facility] ([place]) Comment on above: Performed By: #### L IPID, GFR, A1C, CMP #### [address] [address] MGon 07-04-2023 Magnesium [Mass/Vol] 2.2 mg/dL Normal 1.6-2.4 [facility] ([place] Comment on above: Performed By: #### L IPID, GFR, A1C, CMP #### [address] [address] NM MYOCARDIAL SPECT STRESS/R ESTon 07-04-2023 CO MYOCARDIAL SPECT STRESS/REST ORIGINAL EXAMINATION: CARDIAC SPECT07/04/2023 9:43 am CARDIAC SPECT Lexiscan Stress Cardiac Gated SPECT/CT, Stress/Rest Clinical Statement: Elevated troponins, syncope TECHNIQUE: Lexiscan dose: 0.4 mg IV Radiopharmaceutical (rest and stress doses): Tc-99m sestamibi IV 7.9 and 25.6 mCi SPECT acquisition and processing: Images reconstructed into short, vertical long, and horizontal long axis planes. Wall motion evaluation and quantitative LVEF assessment. Concurrent low-dose CT for attenuation correction. COMPARISON: No prior MPI studies available for comparison. HISTORY: ORDERING SYSTEM PROVIDED HISTORY: Reason for Exam: Elevated troponins, syncope FINDINGS: TID ratio: 1.25. EDV: 144 mL. The left ventricle appears enlarged and dilated. Low-dose CT reveals no pericardial or pleural effusion. There are prominent mediastinal calcified nodes. There also coronary and vascular calcifications and/or stents. Perfusion images reveal a large size, high-grade anterolateral tracer deficit with minimal to very small reversibility on rest images. This area is associated with wall motion/thickening abnormality and is compatible with prior myocardial infarction/scar. Quantitatively, the summed stress score is 27, summed rest score is 17 with a summed difference score of 6 with an estimated 38% of left ventricular myocardium affected at stress on attenuation corrected imaging. Quantitatively insignificant inferior wall tracer decrease resolving with attenuation correction could be secondary to diaphragmatic soft tissue attenuation. Additionally, there is extracardiac activity located inferiorly and laterally which may have contributed to reconstruction artifact. Gated wall motion evaluation reveals no regional or global hypokinesis. The calculated LVEF is reduced, 39%. IMPRESSION: Enlarged and dilated appearing left ventricle with reduced systolic function; calculated LVEF 39%. Large size, high-grade anterolateral/apical tracer deficit associated with wall motion/thickening abnormality is compatible with prior myocardial infarction/scar. A very small amount of reversibility may be present although, not conclusive. No prior MPI studies available for comparison. Interpreted by: Bret Santos Preliminary Report By: Bret Santos Electronically signed By Bret Santos Dictated Date: 07/04/2023 1:04:37 PM Prelim Date: 07/04/2023 1:31:23 PM Sign Date: 07/04/2023 1:31:23 PM Ordering Provider: CHARLINE ROGERS [facility] ([place]) .GFRon 07-03-2023 GFR >60 Normal [facility] ([place]) Comment on above: Result Comment: GFR Population mean for , Non- Americans Ages 20-29 = 116 mL/min/1.73 sq.m. Ages 30-39 = 107 mL/min/1.73 sq.m. Ages 40-49 = 99 mL/min/1.73 sq.m. Ages 50-59 = 93 mL/min/1.73 sq.m. Ages 60-69 = 85 mL/min/1.73 sq.m. Ages 70+ = 75 mL/min/1.73 sq.m. Chronic Kidney Disease: Less than 60 mL/min/1.73 square meters End Stage Renal Disease: Less than 15 mL/min/1.73 square meters Performed By: #### L IPID, GFR, A1C, CMP #### [address] [address] GFR Non- >60 Normal [facility] ([place]) Comment on above: Result Comment: GFR Population mean for , Non- Americans Ages 20-29 = 116 mL/min/1.73 sq.m. Ages 30-39 = 107 mL/min/1.73 sq.m. Ages 40-49 = 99 mL/min/1.73 sq.m. Ages 50-59 = 93 mL/min/1.73 sq.m. Ages 60-69 = 85 mL/min/1.73 sq.m. Ages 70+ = 75 mL/min/1.73 sq.m. Chronic Kidney Disease: Less than 60 mL/min/1.73 square meters End Stage Renal Disease: Less than 15 mL/min/1.73 square meters Performed By: #### L IPID, GFR, A1C, CMP #### [address] [address] A1Con 07-03-2023 HbA1c (Bld) [Mass fraction] 7.6 % High 4.0-6.0 [facility] ([place]) Comment on above: Performed By: #### L IPID, GFR, A1C, CMP #### [address] [address] CMPon 07-03-2023 Albumin Level 3.2 G/dL Normal 3.2-4.8 [facility] ([place]) Comment on above: Performed By: #### L IPID, GFR, A1C, CMP #### [address] [address] Albumin/Globulin [Mass ratio] 1.1 {ratio} Normal 0.9-1.6 [facility] ([place]) Comment on above: Performed By: #### L IPID, GFR, A1C, CMP #### [address] [address] ALP [Catalytic activity/Vol] 56 U/L Normal 38-126 [facility] ([place]) Comment on above: Performed By: #### L IPID, GFR, A1C, CMP #### [address] [address] ALT [Catalytic activity/Vol] 9 U/L Low 12-55 [facility] ([place]) Comment on above: Performed By: #### L IPID, GFR, A1C, CMP #### [address] [address] AST [Catalytic activity/Vol] 17 U/L Normal 8-34 [facility] ([place]) Comment on above: Performed By: #### L IPID, GFR, A1C, CMP #### [address] [address] Bili Total 0.50 mg/dL Normal 0.20-1.20 [facility] ([place]) Comment on above: Result Comment: Use of this assay is not recommended for patients undergoing treatment with eltrombopag due to the potential for falsely elevated results. Performed By: #### L IPID, GFR, A1C, CMP #### [address] [address] BUN/Creatinine Ratio 11.9 ratio Normal 10.0-22.0 [facility] ([place] Comment on above: Performed By: #### L IPID, GFR, A1C, CMP #### [address] [address] Calcium [Mass/Vol] 8.9 mg/dL Normal 8.7-10.4 [facility] ([place] Comment on above: Performed By: #### L IPID, GFR, A1C, CMP #### [address] [address] Chloride [Moles/Vol] 105 mmol/L Normal 98-110 [facility] ([place] Comment on above: Performed By: #### L IPID, GFR, A1C, CMP #### [address] [address] CO2 [Moles/Vol] 28 mmol/L Normal 22-32 [facility] ([place]) Comment on above: Performed By: #### L IPID, GFR, A1C, CMP #### [address] [address] Creatinine [Mass/Vol] 0.84 mg/dL Normal 0.60-1.40 [facility] ([place]) Comment on above: Performed By: #### L IPID, GFR, A1C, CMP #### [address] [address] Electrolyte Balance 7.0 mEq/L Normal 4.0-15.0 [facility] ([place]) Comment on above: Performed By: #### L IPID, GFR, A1C, CMP #### [address] [address] Globulin 2.9 G/dL Normal 1.5-3.8 [facility] ([place]) Comment on above: Performed By: #### L IPID, GFR, A1C, CMP #### [address] [address] Glucose [Mass/Vol] 120 mg/dL High 82-115 [facility] ([place] Comment on above: Performed By: #### L IPID, GFR, A1C, CMP #### [address] [address] Potassium [Moles/Vol] 3.2 mmol/L Low 3.5-5.0 [facility] ([place]) Comment on above: Performed By: #### L IPID, GFR, A1C, CMP #### [address] [address] Sodium [Moles/Vol] 140 mmol/L Normal 136-145 [facility] ([place]) Comment on above: Performed By: #### L IPID, GFR, A1C, CMP #### [address] [address] Total Protein 6.1 G/dL Normal 5.7-8.2 [facility] ([place]) Comment on above: Result Comment: No te - New Reference Range in effect 19 Performed By: #### L IPID, GFR, A1C, CMP #### [place] [address] Urea nitrogen [Mass/Vol] 10.0 mg/dL Normal 8.0-22.0 [facility] ([place]) Comment on above: Performed By: #### L IPID, GFR, A1C, CMP #### [place] [address] Nolan 07-03-2023 Ferritin [Mass/Vol] 43.5 ng/mL Normal 26.0-388.0 [facility] ([place]) Comment on above: Performed By: #### L IPID, GFR, A1C, CMP #### [address] [address] FESon 07-03-2023 Iron [Mass/Vol] 32 ug/dL Low 65-175 [facility] ([place]) Comment on above: Performed By: #### L IPID, GFR, A1C, CMP #### [address] [address] Iron Sat 11 % Normal [facility] ([place]) Comment on above: Performed By: #### L IPID, GFR, A1C, CMP #### [address] [address] TIBC 298 mcg/dL Normal 250-500 [facility] ([place]) Comment on above: Performed By: #### L IPID, GFR, A1C, CMP #### [address] [address] LABORATORYOrdered By: SYSTEM SYSTEM on 07-03-2023 Troponin I.cardiac DL <= 0.01 ng/mL [Mass/Vol] 76.00 ng/L High 0.00 - 54.00 ng/L ADM SS Ferritin [Mass/Vol] 43.5 ng/mL Normal 26.0 - 3 88.0 ng/mL ADM SS HbA1c (Bld) [Mass fraction] 7.6 % High 4.0 - 6.0 % Auto Chem SS Iron [Mass/Vol] 32 ug/dL Low 65 - 175 mcg/dL ADM SS Iron binding capacity [Mass/Vol] 298 mcg/dL Normal 250 - 500 mcg/dL ADM SS Iron saturation [Mass fraction] 11 % Invalid Interpretation Code ADM SS Troponin I.cardiac DL <= 0.01 ng/mL [Mass/Vol] 78.00 ng/L High 0.00 - 54.00 ng/L ADM SS TSH Qn 4.676 mIU/mL Normal 0.550 - 4.780 mIU/mL ADM SS Comment on above: Interpretive Data: * *Note - New Reference Range in effect 19 MGon 07-03-2023 Magnesium [Mass/Vol] 1.9 mg/dL Normal 1.6-2.4 [facility] ([place] Comment on above: Performed By: #### L IPID, GFR, A1C, CMP #### [address] [address] TROPHSon 07-03-2023 Troponin I High Sensitivity 76.00 ng/L High 0.00-54.00 [facility] ([place]) Comment on above: Performed By: #### L IPID, GFR, A1C, CMP #### [address] [address] Troponin I High Sensitivity 78.00 ng/L High 0.00-54.00 [facility] ([place]) Comment on above: Performed By: #### L IPID, GFR, A1C, CMP #### [address] [address] TSHon 07-03-2023 TSH 4.676 mIU/mL Normal 0.550-4.780 [facility] ([place]) Comment on above: Result Comment: No te - New Reference Range in effect 19 Performed By: #### L IPID, GFR, A1C, CMP #### [address] [address] .Auto Diffon 07-02-2023 Basophil, Absolute 0.1 10 3/mcL Normal 0.0-0.3 [facility] ([place] Comment on above: Performed By: #### L IPID, GFR, A1C, CMP #### [address] [address] Basophils/100 WBC (Bld) 0.6 % Normal 0.0-2.5 [facility] ([place]) Comment on above: Performed By: #### L IPID, GFR, A1C, CMP #### [address] [address] Eosinophil, Absolute 0.3 10 3/mcL Normal 0.0-0.7 [facility] ([place]) Comment on above: Performed By: #### L IPID, GFR, A1C, CMP #### [address] [address] Eosinophils/100 WBC (Bld) 3.2 % Normal 0.0-6.0 [facility] ([place]) Comment on above: Performed By: #### L IPID, GFR, A1C, CMP #### [address] [address] Lymphocyte, Absolute 1.5 10 3/mcL Normal 0.9-4.3 [facility] ([place]) Comment on above: Performed By: #### L IPID, GFR, A1C, CMP #### [address] [address] Lymphocytes/100 WBC (Bld) 14.9 % Low 20.0-40.0 [facility] ([place]) Comment on above: Performed By: #### L IPID, GFR, A1C, CMP #### [address] [address] Monocyte, Absolute 0.7 10 3/mcL Normal 0.1-1.4 [facility] ([place] Comment on above: Performed By: #### L IPID, GFR, A1C, CMP #### [address] [address] Monocytes/100 WBC (Bld) 6.6 % Normal 2.0-13.0 [facility] ([place]) Comment on above: Performed By: #### L IPID, GFR, A1C, CMP #### [address] [address] Neutrophils/100 WBC (Bld) 74.7 % Normal 50.0-75.0 [facility] ([place]) Comment on above: Performed By: #### L IPID, GFR, A1C, CMP #### [address] [address] .GFRon 07-02-2023 GFR Non- >60 Normal [facility] ([place]) Comment on above: Result Comment: GFR Population mean for , Non- Americans Ages 20-29 = 116 mL/min/1.73 sq.m. Ages 30-39 = 107 mL/min/1.73 sq.m. Ages 40-49 = 99 mL/min/1.73 sq.m. Ages 50-59 = 93 mL/min/1.73 sq.m. Ages 60-69 = 85 mL/min/1.73 sq.m. Ages 70+ = 75 mL/min/1.73 sq.m. Chronic Kidney Disease: Less than 60 mL/min/1.73 square meters End Stage Renal Disease: Less than 15 mL/min/1.73 square meters Performed By: #### L IPID, GFR, A1C, CMP #### [address] [address] GFR >60 Normal [facility] ([place] Comment on above: Result Comment: GFR Population mean for , Non- Americans Ages 20-29 = 116 mL/min/1.73 sq.m. Ages 30-39 = 107 mL/min/1.73 sq.m. Ages 40-49 = 99 mL/min/1.73 sq.m. Ages 50-59 = 93 mL/min/1.73 sq.m. Ages 60-69 = 85 mL/min/1.73 sq.m. Ages 70+ = 75 mL/min/1.73 sq.m. Chronic Kidney Disease: Less than 60 mL/min/1.73 square meters End Stage Renal Disease: Less than 15 mL/min/1.73 square meters Performed By: #### L IPID, GFR, A1C, CMP #### [address] [address] .MDWon 07-02-2023 Monocyte Distribution Width 18.82 Normal 0.00-20.00 [facility] ([place]) Comment on above: Result Comment: For ED adult patients suspected of sepsis, MDW<=20.0 does not rule out sepsis or risk of sepsis Performed By: #### L IPID, GFR, A1C, CMP #### [address] [address] .NEUABSon 07-02-2023 Neutrophil, Absolute 7.4 10 3/mcL Normal 2.3-8.1 [facility] ([place]) Comment on above: Performed By: #### L IPID, GFR, A1C, CMP #### [address] [address] BMPon 07-02-2023 BUN/Creatinine Ratio 14.1 ratio Normal 10.0-22.0 [facility] ([place] Comment on above: Performed By: #### L IPID, GFR, A1C, CMP #### [address] [address] Calcium [Mass/Vol] 9.1 mg/dL Normal 8.7-10.4 [facility] ([place] Comment on above: Performed By: #### L IPID, GFR, A1C, CMP #### [address] [address] Chloride [Moles/Vol] 104 mmol/L Normal 98-110 [facility] ([place] Comment on above: Performed By: #### L IPID, GFR, A1C, CMP #### [address] [address] CO2 [Moles/Vol] 29 mmol/L Normal 22-32 [facility] ([place]) Comment on above: Performed By: #### L IPID, GFR, A1C, CMP #### [address] [address] Creatinine [Mass/Vol] 0.85 mg/dL Normal 0.60-1.40 [facility] ([place]) Comment on above: Performed By: #### L IPID, GFR, A1C, CMP #### [address] [address] Electrolyte Balance 5.0 mEq/L Normal 4.0-15.0 [facility] ([place]) Comment on above: Performed By: #### L IPID, GFR, A1C, CMP #### [address] [address] Glucose [Mass/Vol] 212 mg/dL High 82-115 [facility] ([place] Comment on above: Performed By: #### L IPID, GFR, A1C, CMP #### [address] [address] Potassium [Moles/Vol] 3.5 mmol/L Normal 3.5-5.0 [facility] ([place] Comment on above: Performed By: #### L IPID, GFR, A1C, CMP #### [address] [address] Sodium [Moles/Vol] 138 mmol/L Normal 136-145 [facility] ([place] Comment on above: Performed By: #### L IPID, GFR, A1C, CMP #### [address] [address] Urea nitrogen [Mass/Vol] 12.0 mg/dL Normal 8.0-22.0 [facility] ([place]) Comment on above: Performed By: #### L IPID, GFR, A1C, CMP #### [address] [address] CBCon 07-02-2023 Erythrocyte distribution width (RBC) [Ratio] 13.1 % Normal 11.5-15.5 [facility] ([place]) Comment on above: Performed By: #### L IPID, GFR, A1C, CMP #### [address] [address] Hematocrit (Bld) [Volume fraction] 30.5 % Low 40.0-52.0 [facility] ([place]) Comment on above: Performed By: #### L IPID, GFR, A1C, CMP #### [place] [id number] Hgb 10.4 G/dL Low 13.0-17.5 [facility] ([place]) Comment on above: Performed By: #### L IPID, GFR, A1C, CMP #### [address] [address] MCH (RBC) [Entitic mass] 29.8 pg Normal 27.0-33.0 [facility] ([place]) Comment on above: Performed By: #### L IPID, GFR, A1C, CMP #### [place] [address] MCHC 34.0 G/dL Normal 32.0-36.0 [facility] ([place]) Comment on above: Performed By: #### L IPID, GFR, A1C, CMP #### [place] [id number] MCV (RBC) [Entitic vol] 87.5 fL Normal 81.0-100.0 [facility] ([place]) Comment on above: Performed By: #### L IPID, GFR, A1C, CMP #### [address] [address] Platelet 227 10 3/mcL Normal 150-450 [facility] ([place]) Comment on above: Performed By: #### L IPID, GFR, A1C, CMP #### [address] [address] Platelet mean volume (Bld) [Entitic vol] 8.4 fL Normal 6.4-10.5 [facility] ([place]) Comment on above: Performed By: #### L IPID, GFR, A1C, CMP #### [address] [address] RBC 3.48 10 6/mcL Low 4.50-6.00 [facility] ([place]) Comment on above: Performed By: #### L IPID, GFR, A1C, CMP #### [address] [place], [place] [address] WBC 9.9 10 3/mcL Normal 4.5-10.8 [facility] ([place]) Comment on above: Performed By: #### L IPID, GFR, A1C, CMP #### [id number] [place], [place] [address] CT ANGIOGRAPHY CHEST W/CONTR Josue 07-02-2023 CT ANGIOGRAPHY CHEST W/CONTRAST ORIGINAL EXAMINATION: CTA OF THE CHEST 07/02/2023 6:34 pm TECHNIQUE: CTA of the chest was performed after the administration of intravenous contrast. Multiplanar reformatted images are provided for review. MIP images are provided for review. Automated exposure control, iterative reconstruction, and/or weight based adjustment of the mA/kV was utilized to reduce the radiation dose to as low as reasonably achievable. COMPARISON: None. HISTORY: ORDERING SYSTEM PROVIDED HISTORY: Reason for Exam: NEAR SYNCOPE EPISODE TODAY difficulty breathing; suspect PE FINDINGS: Pulmonary Arteries: Pulmonary arteries are adequately opacified for evaluation. No evidence of intraluminal filling defect to suggest pulmonary embolism. Main pulmonary artery is normal in caliber. Mediastinum: Evaluation for mediastinal adenopathy is decreased in sensitivity secondary to lack of intravenous contrast however of calcified lymph nodes are appreciated at the precarinal and bilateral hilar stations, right greater than left. Partially calcified right hilar adenopathy measuring up to 1.2 cm is also noted.. The heart and pericardium demonstrate no acute abnormality. No evidence of right heart strain. There is no acute abnormality of the thoracic aorta, which demonstrates calcified atherosclerotic plaque. Lungs/pleura: Ground-glass opacities and mild interlobular septal thickening are appreciated the bilateral lung bases. Multiple small calcified lung nodules are appreciated within the right upper and lower lobes. No focal consolidation. No evidence of pleural effusion or pneumothorax. Upper Abdomen: Limited images of the upper abdomen are unremarkable. Soft Tissues/Bones: No acute bone or soft tissue abnormality. IMPRESSION: 1. No evidence of pulmonary embolism. 2. Mild pulmonary edema. 3. Evidence of granulomatous process/infection with multiple calcified nodules within the right lung and calcified mediastinal and hilar lymph nodes. Mild, partially calcified right hilar adenopathy. Interpreted by: Aidan Crespo Preliminary Report By: Aidan Crespo Electronically signed By Aidan Crespo Dictated Date: 07/02/2023 6:38:05 PM Prelim Date: 07/02/2023 6:49:49 PM Sign Date: 07/02/2023 6:49:49 PM Ordering Provider: XIANG Garcia [facility] ([place]) DDHSon 07-02-2023 D-Dimer HS 2334 ng/mL D-DU High 0-230 [facility] ([place]) Comment on above: Result Comment: Dime r results reported in D-DU ng/ml. Positive for D-dimer. A positive D-Dimer may occur in the following: DVT, PE, DIC, Trauma, Cancer, Sepsis, , Rheumatoid arthritis, Myocardial infarction and Cirrhosis. Note: Not affected by Rheumatoid Factor <= 1400 IU/ml. The result of the D-Dimer test should be evaluated in the context of all the clinical and laboratory data available. In those instances where the laboratory result does not agree with the clinical evaluation, additional tests should be performed accordingly. Performed By: #### D [facility] #### [place] [address] LABORATORYOrdered By: Karen Chahal on 07-02-2023 Natriuretic peptide.B prohormone N-Terminal [Mass/Vol] 1012 pg/mL Normal 0 - 1800 pg/mL Auto Chem SS Comment on above: Interpretive Data: N T-proBNP results of less than 300 pg/mL effectively rules out acute congestive heart failure with 99% negative predictive value. LABORATORYOrdered By: SYSTEM SYSTEM on 07-02-2023 Troponin I.cardiac DL <= 0.01 ng/mL [Mass/Vol] 73.00 ng/L High 0.00 - 54.00 ng/L ADM SS Monocyte distribution width Auto (Bld) [Entitic vol] 18.82 1 Normal 0.00 - 20.00 Workflow SS Comment on above: Result Comment: For ED adult patients suspected of sepsis, MDW<=20.0 does not rule out sepsis or risk of sepsis LABORATORYOrdered By: Zeferino Ornelas on 07-02-2023 Appearance (U) Clear (07/02/23 1:50 PM) Normal Clear AH Auto Urine SS Bilirubin Ql (U) Negative (07/02/23 1:50 PM) Normal Neg-Trace AH Auto Urine SS Color (U) Yellow (07/02/23 1:50 PM) Normal AH Auto Urine SS Glucose Test strip (U) [Mass/Vol] 100 mg/dL Invalid Interpretation Code Negative AH Auto Urine SS Hemoglobin Auto test strip (U) [Mass/Vol] Negative (07/02/23 1:50 PM) Normal Neg-Trace AH Auto Urine SS Ketones Ql (U) Negative Normal Neg-Trace AH Auto Ur ine SS UA Leuk Est Negative (07/02/23 1:50 PM) Normal Negative AH Auto Urine SS UA Nitrite Negative (07/02/23 1:50 PM) Normal Negative AH Auto Urine SS UA pH 6.5 (07/02/23 1:50 PM) Normal 5.0 - 8.0 AH Auto Urine SS UA Protein Negative Normal Negative AH Auto Urine SS UA Spec Grav 1.015 (07/02/23 1:50 PM) Normal 1.006-1.029 AH Auto Urine SS UA Specimen Type Clean Catch (07/02/23 1:50 PM) Normal AH Auto Urine SS UA Urobilinogen 1.0 E.U./dL Normal 0.2-1.0 AH Auto Urine SS LABORATORYOrdered By: Jenifer Dwyer on 07-02-2023 D-Dimer HS 2334 ng/mL D-DU High 0 - 230 ng/mL D-DU AH [facility] SS Comment on above: Result Comment: Victor M cowan results reported in D-DU ng/ml. Positive for D-dimer. A positive D-Dimer may occur in the following: DVT, PE, DIC, Trauma, Cancer, Sepsis, , Rheumatoid arthritis, Myocardial infarction and Cirrhosis. Note: Not affected by Rheumatoid Factor <= 1400 IU/ml. Interpretive Data: T he result of the D-Dimer test should be evaluated in the context of all the clinical and laboratory data available. In those instances where the laboratory result does not agree with the clinical evaluation, additional tests should be performed accordingly. PBNPon 07-02-2023 Natriuretic peptide B (Bld) [Mass/Vol] 1012 pg/mL Normal 0-1800 [facility] ([place]) Comment on above: Result Comment: NT-p roBNP results of less than 300 pg/mL effectively rules out acute congestive heart failure with 99% negative predictive value. Performed By: #### L IPID, GFR, A1C, CMP #### [address] [address] TROPHSon 07-02-2023 Troponin I High Sensitivity 73.00 ng/L High 0.00-54.00 [facility] ([place]) Comment on above: Performed By: #### T AB ####[place] [address] Troponin I High Sensitivity 80.00 ng/L High 0.00-54.00 [facility] ([place]) Comment on above: Performed By: #### T AB ####[place] [id number] Troponin I High Sensitivity 66.00 ng/L High 0.00-54.00 [facility] ([place]) Comment on above: Performed By: #### L IPID, GFR, A1C, CMP #### [address] [address] UAon 07-02-2023 Color (U) Yellow Normal [facility] ([place]) Comment on above: Performed By: #### L IPID, GFR, A1C, CMP #### [address] [address] Glucose (U) [Mass/Vol] 100 mg/dL Abnormal Negative [facility] ([place]) Comment on above: Performed By: #### L IPID, GFR, A1C, CMP #### [address] [address] Ketones Ql (U) Negative Normal Neg-Trace [facility] ([place]) Comment on above: Performed By: #### L IPID, GFR, A1C, CMP #### [address] [address] UA Appear Clear Normal Clear [facility] ([place]) Comment on above: Performed By: #### L IPID, GFR, A1C, CMP #### [address] [address] UA Blood Negative Normal Neg-Trace [facility] ([place]) Comment on above: Performed By: #### L IPID, GFR, A1C, CMP #### [address] [address] UA Leuk Est Negative Normal Negative [facility] ([place]) Comment on above: Performed By: #### L IPID, GFR, A1C, CMP #### [address] [address] UA Nitrite Negative Normal Negative [facility] ([place]) Comment on above: Performed By: #### L IPID, GFR, A1C, CMP #### [address] [address] UA pH 6.5 Normal 5.0 - 8.0 [facility] ([place]) Comment on above: Performed By: #### L IPID, GFR, A1C, CMP #### [address] [address] UA Protein Negative Normal Negative [facility] ([place]) Comment on above: Performed By: #### L IPID, GFR, A1C, CMP #### [address] [address] UA Spec Grav 1.015 Normal 1.006-1.029 [facility] ([place]) Comment on above: Performed By: #### L IPID, GFR, A1C, CMP #### [address] [address] UA Specimen Type Clean Catch Normal [facility] ([place] Comment on above: Performed By: #### L IPID, GFR, A1C, CMP #### [address] [address] UA Urobilinogen 1.0 E.U./dL Normal 0.2-1.0 [facility] ([place]) Comment on above: Performed By: #### L IPID, GFR, A1C, CMP #### [address] [address] Urobilinogen (U) [Mass/Vol] Negative Normal Neg-Trace [facility] ([place]) Comment on above: Performed By: #### L IPID, GFR, A1C, CMP #### [address] [place], [place] [address] XR CHEST 1 VIEWon 07-02-2023 XR CHEST 1 VIEW ORIGINAL EXAMINATION: ONE XRAY VIEW OF THE CHEST07/02/2023 11:56 am COMPARISON: 02/21/2020 HISTORY: ORDERING SYSTEM PROVIDED HISTORY: Reason for Exam: syncopal episode FINDINGS: Lung volumes are low. The heart size and pulmonary vascularity are within normal limits. There is no pleural effusion or pneumothorax. The lungs are clear. IMPRESSION: Low lung volumes, otherwise no acute abnormality. Interpreted by: Sekou Sanders Preliminary Report By: Sekou Sanders Electronically signed By Sekou Sanders Dictated Date: 07/02/2023 12:58:06 PM Prelim Date: 07/02/2023 12:58:43 PM Sign Date: 07/02/2023 12:58:43 PM Ordering Provider: XIANG MOORE [facility]2023 [facility] Patient Choice Patient Name: AZAR TRIPLETT Date of : 1945 [facility] 06-23-2023 [facility] Next Site of Care Admission Date: 06/19/2023 06:04 AM Patient Name: AZAR TRIPLETT Location: [address] Date of : 1945 ---- Placement Information ---- Referral Type:Long Term/SNF - New Referral ID:[facility]-[id number] Provider Name:[facility] Address 1:[address] Phone Number: Address 2: Fax Number: City:[place] Selection Factors:Patient/Family Choice State:[facility] [place] 7000 was entered int [facility] for the [facility]- [facility] per TCC request. Facility notified. [facility] [place] TCC tasked to follow over weekend. Patient's drain remains in place. No DC orders noted yet. Patient to dc to [facility]. TCC to follow. Jenn reached out to this TCC to ask facility if pt can dc to them with accordion drain in place. Awaiting response. Facility able to medically manage drain. Son to transport. Patient to dc to [facility] today. LOUIS, , son, community recreation programmer and facility all updated. FELIBERTO completed. [facility] Laboratory - Chemistry and C hemistry - challengeon 06-23-2023 Glucose [Mass/Vol] 298 mg/dL High 70 - 100 mg/dL [facility] Glucose [Mass/Vol] 197 mg/dL High 70 - 100 mg/dL [facility] No Panel Informationon 06-23 Interpretation and review of laboratory results Abnormal [facility] Performed by: [facility], [address] [place] [id number] CLIA ID: [id number] [facility] Interpretation and review of laboratory results Abnormal [facility] Performed by: [facility], [address] [facility] [address] CLIA ID: [id number] [facility] Radiology Study observation (narrative) [facility] Radiology Study observation (narrative) [facility] Progress Noteon 06-23-2023 Progress Note Brace applied to patient and belongings gathered. Normal [facility] Progress Note Attempted to call report to [facility]. Normal [facility] Progress Note PHYSICAL THERAPY [facility] Treatment Note Name/MRN: Azar Triplett ([id number]) Date of : 1945 Age: 77 y.o. [facility] Discharge Recommendation: 24 hour supervision or assist, Home with Home health PT Equipment Needed: No Other: Owns a FWW Prior Level of Function ADL Assistance: Independent Ambulation Assistance: Independent with cane Transfer Assistance: Independent No prior bracing for the LE's. Reported some falls at home from weakness, including one in the past week. Assessment Observe extended gait with use of FWW. No LOB or SOB. Few steps without FWW use once in room. LE therex tolerate well. Some RLE discomfort. No physical need for activity on this date. Anticipate greater OT needs. Rec home with assist PRN Subjective Observe walking 2 laps of H-tower with nurse aide supervision. Patient using FWW. Patient states he is going to correction upon discharge. Patient states he has hospital bed for homegoing. Pain: back, RLE discomfort Medical Precautions: No active isolations Proper PPE donned/doffed in accordance with facility standards. Fall Risk: Haro Fall Risk Score: 60 (High Risk) Precautions/Restrictio ns: Spine Precautions: No Bending, No Lifting, No Twisting Overall Cognitive Status: WNL Overall Orientation Status: Oriented x4 Family/Caregiver Present: none Objective Transfers/Mobility Sit to stand: Modified Independent Stand to sit: Modified Independent Exercises Exercises Comments: review, perform spine level 1, use of handout Bed Mobility Sit to supine: Modified Independent Bed flat, no railing, logroll, enter left side Balance: stance with/without UE support mod. indept Plan Continue acute PT per plan of care. Safety/Education Safety Safety Devices in place: call light within reach, left in bed, and no alarms engaged upon entry Restraints: No Education Therex, precautions, Outcome Measures AM-PAC AM-PAC Inpatient Mobility Raw Score (No Stairs) : 20 JH-HLM JH-HLM Score: Walked 250 ft or more (i.e. several laps on unit) Goals Patient Stated Goal: correction Encounter Problems Encounter Problems (Active) Balance Patient will maintain dynamic standing balance for 10 minutes with modified independence in order to demonstrate decreased risk of falling. (Adequate for Discharge) Start: 06/20/23 Expected End: 07/04/23 Mobility Patient will ambulate 100 feet with modified independence and rolling walker in order to improve safety and independence with mobility. (Adequate for Discharge) Start: 06/20/23 Expected End: 07/04/23 Pain - Adult Transfers Patient will perform bed mobility with Modified independence in order to improve independence and prepare for out of bed mobility. (Progressing) Start: 06/20/23 Expected End: 07/04/23 Reported he will have a hospital bed at home. Patient will complete functional transfer with least restrictive device with modified independence in order to prepare for ambulation. (Adequate for Discharge) Start: 06/20/23 Expected End: 07/04/23 Therapy Time Individual Co-treatment Time In 1424 Time Out 1438 Minutes 14 Timed Code Treatment Minutes: (tp) Diane Hood PTA [facility] [id number] [phone] Spoke with pt and family member, Perry, at bedside. Pt and family decided they would prefer SNF placement for short time prior to dc home. Perry stated this is already approved through their insurance fund. Denied DME needs. TCC aware and working on referrals. [facility] [place] 06-22-[address] Fulton patient drain output is too high and that makes patient not ready for discharge. TCC to assist and follow as needed. [facility] IDNon 06-22-2023 IDN Problem: Pain - Adul t Goal: Verbalizes/displays adequate comfort level or baseline comfort level Outcome: Progressing Flowsheets (Taken 06/22/2023 0935) Verbalizes/displays adequate comfort level or baseline comfort level: Encourage patient to monitor pain and request assistance Assess pain using appropriate pain scale Administer analgesics based on type and severity of pain and evaluate response Implement non-pharmacological measures as appropriate and evaluate response Consider cultural and social influences on pain and pain management Notify Licensed Independent Practitioner if interventions unsuccessful or patient reports new pain Problem: Safety - Adult Goal: Free from fall injury Outcome: Progressing Flowsheets (Taken 06/22/2023 09) Free from fall injury: Instruct family/caregiver on patient safety Based on caregiver fall risk screen, instruct family/caregiver to ask for assistance with transferring infant if caregiver noted to have fall risk factors Problem: Discharge Planning Goal: Discharge to home or other facility with appropriate resources Outcome: Progressing Flowsheets (Taken 06/22/2023 0935) Discharge to home or other facility with appropriate resources: Identify barriers to discharge with patient and caregiver Arrange for needed discharge resources and transportation as appropriate Identify discharge learning needs (meds, wound care, etc) Arrange for interpreters to assist at discharge as needed Refer to discharge planning if patient needs post-hospital services based on physician order or complex needs related to functional status, cognitive ability or social support system [facility] IDN Problem: Pain - Adul t Goal: Verbalizes/displays adequate comfort level or baseline comfort level Outcome: Progressing Problem: Safety - Adult Goal: Free from fall injury Outcome: Progressing Problem: Discharge Planning Goal: Discharge to home or other facility with appropriate resources Outcome: Progressing Normal [facility] Laboratory - Chemistry and C hemistry - challengeon 06-22-2023 Glucose [Mass/Vol] 224 mg/dL High 70 - 100 mg/dL [facility] Glucose [Mass/Vol] 243 mg/dL High 70 - 100 mg/dL [facility] Glucose [Mass/Vol] 227 mg/dL High 70 - 100 mg/dL [facility] Glucose [Mass/Vol] 152 mg/dL High 70 - 100 mg/dL [facility] No Panel Informationon 06-22 Interpretation and review of laboratory results Abnormal [facility] Performed by: [facility], [address] [place] [address], [facility] [address] CLIA ID: [id number] [facility] [employer] [facility] Interpretation and review of laboratory results Abnormal [facility] Performed by: [facility], [address] [place] [address], [facility] [address] CLIA ID: [id number] [facility] Interpretation and review of laboratory results Abnormal [facility] Performed by: [facility], [address] [place] [address], [facility] [address] CLIA ID: [id number] [facility] Interpretation and review of laboratory results Abnormal [facility] Performed by: [facility], [address] [place] [address], [facility] [address] CLIA ID: [id number] [facility] Radiology Study observation (narrative) [facility] Radiology Study observation (narrative) [facility] Radiology Study observation (narrative) [facility] Radiology Study observation (narrative) [facility] Progress Noteon 06-22-2023 Progress Note PHYSICAL THERAPY [facility] Treatment Note Name/MRN: Azar Triplett ([id number]) Date of : 1945 Age: 77 y.o. [facility] Discharge Recommendation: 24 hour supervision or assist, Home with Home health PT Equipment Needed: No Other: Owns a FWW Prior Level of Function ADL Assistance: Independent Ambulation Assistance: Independent with cane Transfer Assistance: Independent No prior bracing for the LE's. Reported some falls at home from weakness, including one in the past week. Assessment Patient tolerated therapy session well this afternoon. Patient ambulated 630 ft around H Unit with CGA and verbal cues to maintain upright posture given. Pt requires CGA for transfers and CGA to Min Assist for bed mobility. Progressing toward PT goals. No PT goals met this session. 24 hour supervision and home health PT recommended upon discharge. Subjective Pt presents seated in chair. States that he just had a treatment with OT but is willing to work with PT. States his right hip is hurting more than his back but could be due to the fact he has been sleeping on his side at night. Patient states he is ready to get out of here. Pain: 0-10 pain scale: 5/10 Location: back, right hip Medical Precautions: No active isolations Proper PPE donned/doffed in accordance with facility standards. Fall Risk: Haro Fall Risk Score: 60 (High Risk) Precautions/Restrictio ns: Spine Precautions: No Bending, No Lifting, No Twisting Overall Cognitive Status: WNL Overall Orientation Status: Oriented x4 Family/Caregiver Present: child(halima) Objective Ambulation Ambulation 1 Assistive device(s) used: front wheeled walker Assist level: Contact Guard Distance (ft): 630 ft Quality of gait: reciprocal stepping, equal step length, slow clark Verbal cues given to maintain upright posture. Transfers/Mobility Sit to stand: Contact Guard Stand to sit: Contact Guard Sitting balance: SBA Standing balance: Contact Guard Verbal cues given for hand placement. Device(s) used: front wheeled walker Exercises Exercises Quad Sets: x10 bilateral w/ 3 sec hold, reclined Heelslides: x10, reclined Gluteal Sets: x10 bilateral w/ 3 sec hold, reclined Knee Long Arc Quad: x10 bilateral, seated Ankle Pumps: x10 bilateral, reclined Other exercises Other exercises?: No Bed Mobility Supine to sit: Contact Guard, Min Assist Sit to supine: Contact Guard, Min Assist Verbal cues given for log roll technique Sitting - Static: SBA Sitting - Dynamic: SBA Standing - Static: Contact Guard Standing - Dynamic: Contact Guard Plan Continue acute PT per plan of care. Safety/Education Safety Safety Devices in place: All fall risk precautions in place, call light within reach, left in bed, gait belt, no alarms engaged upon entry, and paraffiner present Restraints: No Education Education Given To: patient Education Provided: PT Role, PT Goals, Gait Training, Plan of Care, and Precautions Education Method: Verbal and Demonstration Barriers to Learning: None Education Outcome: Verbalized Understanding and Demonstrated Understanding Outcome Measures AM-PAC AM-PAC Inpatient Mobility Raw Score (No Stairs) : 15 JH-HLM JH-HLM Score: Walked 250 ft or more (i.e. several laps on unit) Goals Patient Stated Goal: TO return to home with family Encounter Problems Encounter Problems (Active) Balance Patient will maintain dynamic standing balance for 10 minutes with modified independence in order to demonstrate decreased risk of falling. (Progressing) Start: 06/20/23 Expected End: 07/04/23 Mobility Patient will ambulate 100 feet with modified independence and rolling walker in order to improve safety and independence with mobility. (Progressing) Start: 06/20/23 Expected End: 07/04/23 Pain - Adult Transfers Patient will perform bed mobility with Modified independence in order to improve independence and prepare for out of bed mobility. (Progressing) Start: 06/20/23 Expected End: 07/04/23 Reported he will have a hospital bed at home. Patient will complete functional transfer with least restrictive device with modified independence in order to prepare for ambulation. (Progressing) Start: 06/20/23 Expected End: 07/04/23 Therapy Time Individual Co-treatment Time In 1130 Time Out 1157 Minutes 27 Timed Code Treatment Minutes: (GT, TP) GIANCARLO Temple This treatment session was completed by a student physical therapist field assistant under the supervision of the cosigning therapist. Joan Mayorga BRAID FOLDER [facility] Progress Note Nutrition rescreen completed. Chart reviewed. Patient to be monitored and followed by the diet graphic technician. DIMITRI Ernandez [facility] Progress Note OCCUPATIONAL THERAPY [facility] Treatment Note Name/MRN: Azar Triplett ([id number]) Date of : 1945 Age: 77 y.o. Room/Bed: H-6112/-6112 A Discharge Recommendation: [facility] Facility, Pending approval of OTR/L of change in rec- Continue to assess pending progress Prior Level of Function ADL Assistance: Independent Ambulation Assistance: Independent Pt used cane PRN Transfer Assistance: Independent Assessment Currently, Pt required MIN A for functional mobility and transfers with use of FWW. Pt required MOD A for LB Bathing and MIN A for LB Dressing with use of AE. Pt required MOD A for dynamic standing balance with focus on item retrieval + tactile cues for good body mechanics. Pt is limited by pain in R lateral hip, R foot drop, and decreased dynamic standing balance hindering indep and safety with functional tasks. Recommending SNF upon discharge in order to achieve highest level of function. Subjective Pt reclined in bed upon entry. Pt pleasant and agreeable to OT TX. Pt reported pain in R lateral aspects of hip- 6/ 10 - nsg notifed of such- ice pack applied for comfort at the EOS. Pt son requesting to speak with TCC regarding discharge planning- communicated via secure chat. Pain: RN managing pain. Medical Precautions: No active isolations Proper PPE donned/doffed in accordance with facility standards. Fall Risk: Haro Fall Risk Score: 60 (High Risk) Precautions/Restrictio ns: Spine Precautions: No Bending, No Lifting, No Twisting Family/Caregiver Present: Son Objective ADLs Grooming: Supervision, Contact Guard, after setup- for static standing balance to perform oral hygiene standing at sink level and combing hair. LE Bathing: Mod Assist- to wash from thighs to slightly below knees d/t decreased functional reach. UE Dressing: Min Assist- to logan gown as a robe with physical assist to thread RUE into sleeve. LE Dressing: Min Assist (see below) Adaptive Equipment: Data Entry Machine Operator to doff gripper sock with MIN A for improved technique d/t overgrown toenails and use of sock aid 2/2 trials d/t decreased functional reach- unable to perform figure four method. Bed Mobility Supine to sit: Min Assist with emphasis on log roll technique for spinal comfort with assist of trunk. Sit to supine: Contact Guard Rolling to right: Contact Guard Rolling to left: Contact Guard Scooting: Contact Guard touch assist to scoot forward in bed with use of draw sheet Transfers/Mobility Sit to stand: Min Assist x 3 from bed/ chair level + tactile cues for correct hand placement. Stand to sit: Contact Guard Sitting balance: Independent Standing balance: Min Assist- for static standing balance at sink level for grooming task with unilateral support of sink ; MOD A for dynamic standing balance d/t difficulty with reaching ipsilaterally + tactile cues for improved wt shifting to avoid near LOB Functional mobility: Min Assist- Pt able to ambulate from bed towards 2nd exit sign in hallway using FWW + tactile cues for posture and safe walker mgmt- 2 standing rest periods required. Device(s) used: front wheeled walker Plan Continue acute OT per plan of care. Safety/Education Safety Safety Devices in place: All fall risk precautions in place, call light within reach, left in chair, chair alarm in place, and nurse notified Restraints: No Education Education Given To: patient and patient and son Education Provided: OT Role, Plan of Care, ADL Adaptive Strategies, Transfer Training, Energy Conservation, Orientation, Discharge Recommendations, Benefits of Increasing Activity, and Breathing Techniques Education Method: Verbal, Demonstration, and Teach Back Barriers to Learning: None Education Outcome: Verbalized Understanding and Continued Education Needed AM-PAC AM-PAC Inpatient Daily Activity Raw Score: 18 ADL Inpatient CMS G-Code Modifier: CK Goals Patient Stated Goal: to get stronger to be able to get back to working Encounter Problems Encounter Problems (Active) Balance Patient will maintain dynamic standing balance for 3 minutes with modified independence in order to demonstrate decreased risk of falling. (Slowly Progressing) Start: 06/21/23 Expected End: 07/19/23 Dressings Lower Extremities Pt will dress lower body with min assist with AE PRN. (Progressing) Start: 06/21/23 Expected End: 07/19/23 Transfers Pt will complete toilet transfer with mod indep. (Progressing) Start: 06/21/23 Expected End: 07/19/23 Therapy Time Individual Co-treatment Time In 1016 Time Out 1054 Minutes 38 Timed Code Treatment Minutes: 38 Minutes (2-ADL; 1- FUNCT ACT) RADHA Donaldson Normal [facility] BASIC METABOLIC PANELon 06-01 Anion gap [Moles/Vol] 7 mmol/L Normal 3-13 [facility] Comment on above: Performed By: #### L [id number] ####Configuration Management Analyst: WINSTON HEDRICK ([id number])[address] Calcium [Mass/Vol] 8.6 mg/dL Normal 8.4-10.4 [facility] Comment on above: Performed By: #### L [id number] ####Configuration Management Analyst: WINSTON HEDRICK ([id number])[facility])[address] [place] [address] [place] Chloride [Moles/Vol] 103 mmol/L Normal 98-107 [facility] Comment on above: Performed By: #### L [id number] ####Configuration Management Analyst: WINSTON HEDRICK ([id number])[facility])[address] [place] [address] CO2 [Moles/Vol] 25 mmol/L Normal 22-30 [facility] Comment on above: Performed By: #### L [id number] ####Configuration Management Analyst: WINSTON [id number])[facility])[address] [place] [address] Creatinine [Mass/Vol] 0.94 mg/dL Normal 0.66-1.25 [facility] Comment on above: Performed By: #### L [id number] ####Configuration Management Analyst: WINSTON HEDRICK ([id number])[facility] [place] [address] GLOMERULAR FILTRATION RATE ML/MIN/1.73 SQ M.PREDICTED 82.5 mL/min/1.73m*2 Normal >60.0 [facility] Comment on above: Result Comment: Calc ulation based on the Chronic Kidney Disease Epidemiology Collaboration (CKD-EPI) equation refit without adjustment for race Performed By: #### L [id number] ####Configuration Management Analyst: WINSTON HEDRICK ([id number])[facility] ([facility])[address] [place] [address] Glucose [Mass/Vol] 239 mg/dL High 70-100 [facility] Comment on above: Performed By: #### L [id number] ####Configuration Management Analyst: WINSTON HEDRICK ([id number])[facility] [place] [address] Potassium [Moles/Vol] 3.6 mmol/L Normal 3.5-5.1 [facility] Comment on above: Performed By: #### L [id number] ####Configuration Management Analyst: WINSTON HEDRICK ([id number])[facility] ([facility])[address] [place] [address] Sodium [Moles/Vol] 135 mmol/L Normal 135-145 [facility] Comment on above: Performed By: #### L [id number] ####Configuration Management Analyst: WINSTON HEDRICK ([id number])[facility] ([facility])[address] [place] [address] [place] Urea nitrogen [Mass/Vol] 25 mg/dL High 9-20 [facility] Comment on above: Performed By: #### L [id number] ####Configuration Management Analyst: WINSTON HEDRICK ([id number])[facility] ([facility])[address] [place] [address] Basic metabolic 1998 panelon 06-21-2023 Anion gap [Moles/Vol] 7 mmol/L 3 - 13 mmol/L [facility] Calcium [Mass/Vol] 8.6 mg/dL 8.4 - 10. 4 mg/dL [facility] Chloride [Moles/Vol] 103 mmol/L 98 - 10 7 mmol/L [facility] CO2 [Moles/Vol] 25 mmol/L 22 - 30 mmol/L [facility] Creatinine [Mass/Vol] 0.94 mg/dL 0.66 - 1.25 mg/dL [facility] GFR/1.73 sq M.predicted MDRD (S/P/Bld) [Vol rate/Area] 82.5 mL/min/{1.73_m2} - PINF [facility] Comment on above: Calculation based on the Chronic Kidney Disease Epidemiology Collaboration (CKD-EPI) equation refit without adjustment for race Glucose [Mass/Vol] 239 mg/dL High 70 - 100 mg/dL [facility] Interpretation and review of laboratory results Abnormal [facility] Potassium [Moles/Vol] 3.6 mmol/L 3.5 - 5.1 mmol/L [facility] Sodium [Moles/Vol] 135 mmol/L 135 - 145 mmol/L [facility] Urea nitrogen [Mass/Vol] 25 mg/dL High 9 - 20 mg/dL [facility] CARECOORDon 06-21-2023 [facility] Patient remains on H 6 s/p anterior lumbar fusion 06/19/2023. Reg 5 carb choice diet noted. Per RN accordian drain with increase output. PT/OT noted. Discharge plan is to spouse home with therapy at home. TCC to assist and follow as needed. Normal [facility] CBC W Auto Differential pane l (Bld)Ordered By: Luiz Acosta on 06-21-2023 Basophils (Bld) [#/Vol] 0.0 10*3/uL 0.0 - 0.2 10*3/uL [facility] Basophils/100 WBC (Bld) 0.1 % 0.0 - 2.0 % [facility] Eosinophils (Bld) [#/Vol] 0.0 10*3/uL 0.0 - 0.5 10*3/uL [facility] Eosinophils/100 WBC (Bld) 0.0 % Low 1.0 - 6.0 % [facility] Erythrocyte distribution width (RBC) [Ratio] 13.1 % 11.5 - 14.5 % [facility] Hematocrit (Bld) [Volume fraction] 30.5 % Low 40.0 - 52.0 % [facility] Hemoglobin (Bld) [Mass/Vol] 10.2 g/dL Low 13.0 - 18.0 g/dL [facility] Interpretation and review of laboratory results Abnormal [facility] Lymphocytes (Bld) [#/Vol] 1.0 10*3/uL 1.0 - 4.3 10*3/uL [facility] Lymphocytes/100 WBC (Bld) 5.3 % Low 20.0 - 40.0 % [facility] MCH (RBC) [Entitic mass] 29.7 pg 26.0 - 34.0 pg [facility] MCHC (RBC) [Mass/Vol] 33.4 % 32.0 - 36.0 % [facility] MCV (RBC) [Entitic vol] 88.7 fL 80.0 - 98.0 fL [facility] Monocytes (Bld) [#/Vol] 1.6 10*3/uL High 0.0 - 0.8 10*3/uL [facility] Comment on above: I-Monocytosis # Monocytes/100 WBC (Bld) 8.2 % 2.0 - 10.0 % [facility] Neutrophils (Bld) [#/Vol] 17.0 10*3/uL High 1.8 - 7.0 10*3/uL [facility] Neutrophils/100 WBC (Bld) 86.4 % High 40.0 - 80.0 % [facility] Nucleated RBC/100 WBC (Bld) [Ratio] 0.0 % [facility] Platelet mean volume (Bld) [Entitic vol] 9.2 fL 7.4 - 12.4 fL [facility] Platelets (Bld) [#/Vol] 182 10*3/uL 140 - 440 10*3/uL [facility] RBC (Bld) [#/Vol] 3.44 10*6/uL Low 4.40 - 5.9 0 10*6/uL [facility] WBC (Bld) [#/Vol] 19.7 10*3/uL High 3.6 - 10.7 10*3/uL [facility] CBC WITH AUTO DIFFERENTIALon 06-21-2023 Basophils (Bld) [#/Vol] 0.0 10*3/uL Normal 0.0-0.2 [facility] Comment on above: Performed By: #### L [id number] ####Configuration Management Analyst: WINSTON HEDRICK ([id number])[facility])[address] [place] [address] Basophils/100 WBC (Bld) 0.1 % Normal 0.0-2.0 [facility] Comment on above: Performed By: #### L [id number] ####Configuration Management Analyst: WINSTON HEDRICK ([id number])[facility])[address] [place] [address] Eosinophils (Bld) [#/Vol] 0.0 10*3/uL Normal 0.0-0.5 [facility] Comment on above: Performed By: #### L [id number] ####Configuration Management Analyst: WINSTON HEDRICK ([id number])[facility])[address] [place] [address] Eosinophils/100 WBC (Bld) 0.0 % Low 1.0-6.0 [facility] Comment on above: Performed By: #### L [id number] ####Configuration Management Analyst: WINSTON HEDRICK ([id number])[facility])[address] [place] [address] Erythrocyte distribution width (RBC) [Ratio] 13.1 % Normal 11.5-14.5 [facility] Comment on above: Performed By: #### L [id number] ####Configuration Management Analyst: WINSTON HEDRICK ([id number])[facility])[address] [place] [address] ERYTHROCYTE MEAN CORPUSCULAR HEMOGLOBIN CONCENTRATION (G/DL) BY AUTOMATED 33.4 % Normal 32.0-36.0 [facility] Comment on above: Performed By: #### L [id number] ####Configuration Management Analyst: WINSTON HEDRICK ([id number])[facility] [address] Hematocrit (Bld) [Volume fraction] 30.5 % Low 40.0-52.0 [facility] Comment on above: Performed By: #### L [id number] ####Configuration Management Analyst: WINSTON HEDRICK ([id number])[facility])[address] [place] [address] Hemoglobin (Bld) [Mass/Vol] 10.2 g/dL Low 13.0-18.0 [facility] Comment on above: Performed By: #### L [id number] ####Configuration Management Analyst: WINSTON HEDRICK ([id number])[facility])[address] [place] [address] Lymphocytes (Bld) [#/Vol] 1.0 10*3/uL Normal 1.0-4.3 [facility] Comment on above: Performed By: #### L [id number] ####Configuration Management Analyst: WINSTON HEDRICK ([id number])[facility])[address] [place] [address] Lymphocytes/100 WBC (Bld) 5.3 % Low 20.0-40.0 [facility] Comment on above: Performed By: #### L [id number] ####Configuration Management Analyst: WINSTON HEDRICK ([id number])[facility])[address] [place] [address] MCH (RBC) [Entitic mass] 29.7 pg Normal 26.0-34.0 [facility] Comment on above: Performed By: #### L [id number] ####Configuration Management Analyst: WINSTON HEDRICK ([id number])[facility])[address] [place] [address] MCV (RBC) [Entitic vol] 88.7 fL Normal 80.0-98.0 [facility] Comment on above: Performed By: #### L [id number] ####Configuration Management Analyst: WINSTON HEDRICK ([id number])[facility])[address] [place] [address] Monocytes (Bld) [#/Vol] 1.6 10*3/uL High 0.0-0.8 [facility] Comment on above: Result Comment: I-Mo nocytosis # Performed By: #### L [id number] ####Configuration Management Analyst: WINSTON HEDRICK ([id number])[facility] ([facility])[address] [place] [address] Monocytes/100 WBC (Bld) 8.2 % Normal 2.0-10.0 [facility] Comment on above: Performed By: #### L [id number] ####Configuration Management Analyst: WINSTON HEDRICK ([id number])[facility] ([facility])[address] [place] [address] [place] Neutrophils (Bld) [#/Vol] 17.0 10*3/uL High 1.8-7.0 [facility] Comment on above: Performed By: #### L [id number] ####Configuration Management Analyst: WINSTON HEDRICK ([id number])[facility] ([facility])[address] [place] [address] Neutrophils/100 WBC (Bld) 86.4 % High 40.0-80.0 [facility] Comment on above: Performed By: #### L [id number] ####Configuration Management Analyst: WINSTON HEDRICK ([id number])[facility])[address] [place] [address] NRBC (PER 100 WBCS) BY AUTOMATED COUNT 0.0 /100 WBCs Normal 0.0-2.0 [facility] Comment on above: Performed By: #### L [id number] ####Configuration Management Analyst: WINSTON HEDRICK ([id number])[facility] ([facility])[address] [place] [address] [place] Platelet mean volume (Bld) [Entitic vol] 9.2 fL Normal 7.4-12.4 [facility] Comment on above: Performed By: #### L [id number] ####Configuration Management Analyst: WINSTON HEDRICK ([id number])[facility] ([facility])[address] [place] [address] [place] Platelets (Bld) [#/Vol] 182 10*3/uL Normal 140-440 [facility] Comment on above: Performed By: #### L [id number] ####Configuration Management Analyst: WINSTON HEDRICK ([id number])[facility] [place] [address] RBC (Bld) [#/Vol] 3.44 10*6/uL Low 4.40-5.90 [facility] Comment on above: Performed By: #### L [id number] ####Configuration Management Analyst: WINSTON HEDRICK ([id number])[facility] [place] [address] WBC (Bld) [#/Vol] 19.7 10*3/uL High 3.6-10.7 [facility] Comment on above: Performed By: #### L [id number] ####Configuration Management Analyst: WINSTON HEDRICK ([id number])[facility])[address] [place] [address] IDNon 06-21-2023 IDN Problem: Pain - Adul t Goal: Verbalizes/displays adequate comfort level or baseline comfort level Outcome: Progressing Problem: Safety - Adult Goal: Free from fall injury Outcome: Progressing Problem: Discharge Planning Goal: Discharge to home or other facility with appropriate resources Outcome: Progressing Normal [facility] Laboratory - Chemistry and C hemistry - challengeon 06-21-2023 Glucose [Mass/Vol] 262 mg/dL High 70 - 100 mg/dL [facility] Glucose [Mass/Vol] 250 mg/dL High 70 - 100 mg/dL [facility] Glucose [Mass/Vol] 245 mg/dL High 70 - 100 mg/dL [facility] Glucose [Mass/Vol] 317 mg/dL High 70 - 100 mg/dL [facility] No Panel Informationon 06-21 Interpretation and review of laboratory results Abnormal [facility]: [facility], [address] [place] [address] CLIA ID: [id number] [facility] [employer] [facility] Interpretation and review of laboratory results Abnormal [facility] Performed by: [facility], [address] [place] [address] CLIA ID: [id number] [facility] Interpretation and review of laboratory results Abnormal [facility] Performed by: [facility], [address] [facility] [address] CLIA ID: [id number] [facility] Interpretation and review of laboratory results Abnormal [facility] Performed by: [facility], [address] [facility] [address] CLIA ID: [id number] [facility] Radiology Study observation (narrative) [facility] Radiology Study observation (narrative) [facility] Radiology Study observation (narrative) [facility] Radiology Study observation (narrative) [facility] Progress Noteon 06-21-2023 Progress Note PHYSICAL THERAPY [facility] Treatment Note Name/MRN: Azar Triplett ([id number]) Date of : 1945 Age: 77 y.o. [facility] Discharge Recommendation: 24 hour supervision or assist, Home with Home health PT Equipment Needed: No Other: Owns a FWW Prior Level of Function ADL Assistance: Independent Ambulation Assistance: Independent with cane Transfer Assistance: Independent No prior bracing for the LE's. Reported some falls at home from weakness, including one in the past week. Assessment Patient tolerated therapy session well. CGA to Min assist for transfers and ambulation. Min assist for bed mobility. Pt was given log roll technique and exercise hand outs. Patient demonstrated slight drop foot on right LE during ambulation as well as increased forward posture. Verbal cues were given to correct posture. No PT goals met this session. 24 hour assist and home health PT recommended upon discharge. Subjective Patient presents sitting in chair. Agrees to PT. Daughter in room. Pain: 0-10 pain scale: 4/10 Location: back Medical Precautions: No active isolations Proper PPE donned/doffed in accordance with facility standards. Fall Risk: Haro Fall Risk Score: 60 (High Risk) Precautions/Restrictio ns: Spine Precautions: No Bending, No Lifting, No Twisting Overall Cognitive Status: WNL Overall Orientation Status: Oriented x4 Family/Caregiver Present: child(halima) Objective Ambulation Ambulation 1 Assistive device(s) used: front wheeled walker Assist level: Contact Guard, Min Assist Distance (ft): 75 ft Quality of gait: reciprocal stepping, slow clark, steppage gait on right lower extremity due to foot drop. For riley flexed posture, verbal cues given to correct. Transfers/Mobility Sit to stand: Contact Guard, Min Assist Stand to sit: Contact Guard, Min Assist Sitting balance: Contact Guard Standing balance: Contact Guard, Min Assist Verbal cues given for hand placement Device(s) used: front wheeled walker Exercises Exercises Hamstring Sets: x10 bilateral w/ 3 sec hold, reclined Quad Sets: x10 bilateral w/ 3 sec hold, reclined Heelslides: x10, reclined Gluteal Sets: x10 bilateral w/ 3 sec hold, reclined Knee Long Arc Quad: x10 bilateral, seated Ankle Pumps: x10 bilateral, reclined Other exercises Other exercises?: No Hand out given Bed Mobility Supine to sit: Min Assist Sit to supine: Min Assist Scooting: Min Assist Taught patient log roll technique, hand out given Plan Continue acute PT per plan of care. Safety/Education Safety Safety Devices in place: All fall risk precautions in place, call light within reach, left in bed, gait belt, no alarms engaged upon entry, and paraffiner present Restraints: No Education Education Given To: patient Education Provided: PT Role, PT Goals, Gait Training, Precautions, and Benefits of Increasing Activity Education Method: Verbal and Demonstration Barriers to Learning: None Education Outcome: Verbalized Understanding and Demonstrated Understanding Outcome Measures AM-PAC AM-PAC Inpatient Mobility Raw Score (No Stairs) : 15 JH-HLM -HLM Score: Walked 25 ft or more (i.e. walked outside of room) Goals Patient Stated Goal: TO return to home with family Encounter Problems Encounter Problems (Active) Balance Patient will maintain dynamic standing balance for 10 minutes with modified independence in order to demonstrate decreased risk of falling. (Progressing) Start: 06/20/23 Expected End: 07/04/23 Mobility Patient will ambulate 100 feet with modified independence and rolling walker in order to improve safety and independence with mobility. (Progressing) Start: 06/20/23 Expected End: 07/04/23 Pain - Adult Transfers Patient will perform bed mobility with Modified independence in order to improve independence and prepare for out of bed mobility. (Progressing) Start: 06/20/23 Expected End: 07/04/23 Reported he will have a hospital bed at home. Patient will complete functional transfer with least restrictive device with modified independence in order to prepare for ambulation. (Progressing) Start: 06/20/23 Expected End: 07/04/23 Therapy Time Individual Co-treatment Time In 1338 Time Out 1407 Minutes 29 Timed Code Treatment Minutes: (GT, TP) GIANCARLO Temple This treatment session was completed by a student physical therapist field assistant under the supervision of the cosigning therapist. Joan Mayorga [facility] XR LUMBAR SPINE 4-5 VIEWon 0 06-21-2023 XR LUMBAR SPINE 4-5 VIEW Patient Name: AZAR TRIPLETT : 1945 Exam Date/Time: 06/21/2023 10:52 Procedure: XR LUMBAR SPINE 4-5 VIEW Ordering Provider: PAGE RAJIV Reason For Exam: Postop CLINICAL INFORMATION: Back pain. Recent laminectomy. Fusion. AP, lateral, coned-down L5-S1, and bilateral oblique views of the lumbosacral spine are provided. The examination is compared to a previous study dated 06/19/2023. FINDINGS: The patient is now status post multilevel laminectomy and fusion. Surgical drains are in place. Laminectomy defect is evident at L1-2, L2-3, L3-4, and L4-5. Pedicle screws span L4 through S1. Disc spacers are present at L4-5 and L5-S1. Vertebral body heights are maintained. The sacroiliac joints are symmetric bilaterally without focal abnormality. The bone mineralization is within normal limits. IMPRESSION: 1. Now status post multilevel laminectomy and fusion. 2. Surgical drains are in place. 3. No acute radiographic findings. Report Dictated on Electronically Signed By: Thomas Haro MD Electronically Signed Date/Time: 06/21/2023 11:30 AM EST [facility] XR Lumbar spine Views W flex ion and W extensionon 06-21-2023 1. Now status post multilevel laminectomy and fusion. 2. Surgical drains are in place. 3. No acute radiographic findings. Report Dictated on Electronically Signed By: Thomas Haro MD Electronically Signed Date/Time: 06/21/2023 11:30 AM [facility] RADIOLOGY SYSTEM Patient Name: AZAR TRIPLETT DOB: 1945 Exam Date/Time: 06/21/2023 10:52 Procedure: XR LUMBAR SPINE 4-5 VIEW Ordering Provider: PAGE RAJIV Reason For Exam: Postop CLINICAL INFORMATION: Back pain. Recent laminectomy. Fusion. AP, lateral, coned-down L5-S1, and bilateral oblique views of the lumbosacral spine are provided. The examination is compared to a previous study dated 06/19/2023. FINDINGS: The patient is now status post multilevel laminectomy and fusion. Surgical drains are in place. Laminectomy defect is evident at L1-2, L2-3, L3-4, and L4-5. Pedicle screws span L4 through S1. Disc spacers are present at L4-5 and L5-S1. Vertebral body heights are maintained. The sacroiliac joints are symmetric bilaterally without focal abnormality. The bone mineralization is within normal limits. [facility] RADIOLOGY [facility] Thomas Haro MD - 06/21/2023 Patient Name: AZAR TRIPLETT : 1945 Exam Date/Time: 06/21/2023 10:52 Procedure: XR LUMBAR SPINE 4-5 VIEW Ordering Provider: PAGE RAJIV Reason For Exam: Postop CLINICAL INFORMATION: Back pain. Recent laminectomy. Fusion. AP, lateral, coned-down L5-S1, and bilateral oblique views of the lumbosacral spine are provided. The examination is compared to a previous study dated 06/19/2023. FINDINGS: The patient is now status post multilevel laminectomy and fusion. Surgical drains are in place. Laminectomy defect is evident at L1-2, L2-3, L3-4, and L4-5. Pedicle screws span L4 through S1. Disc spacers are present at L4-5 and L5-S1. Vertebral body heights are maintained. The sacroiliac joints are symmetric bilaterally without focal abnormality. The bone mineralization is within normal limits. IMPRESSION: 1. Now status post multilevel laminectomy and fusion. 2. Surgical drains are in place. 3. No acute radiographic findings. Report Dictated on Electronically Signed By: Thomas Haro MD Electronically Signed Date/Time: 06/21/2023 11:30 AM EST [facility] Radiology Study observation (narrative) [facility] XR Lumbar spine Views W flex ion and W extensionOrdered By: Tohmas Haro on 06-21-2023 [facility] Work Phone: [phone] 06-20-2023 [id number] Beam Warper following case for Discharge Needs. Normal [facility] BASIC METABOLIC PANELon 06-01 Anion gap [Moles/Vol] 10 mmol/L Normal 3-13 [facility] Comment on above: Performed By: #### L AB15 ####Configuration Management Analyst: WINSTON HEDRICK ([id number])[address] Calcium [Mass/Vol] 8.1 mg/dL Low 8.4-10.4 [facility] Comment on above: Performed By: #### L AB15 ####Configuration Management Analyst: WINSTON HEDRICK ([id number])[facility])[address] [place] [address] Chloride [Moles/Vol] 104 mmol/L Normal 98-107 [facility] Comment on above: Performed By: #### L AB15 ####Configuration Management Analyst: WINSTON HEDRICK ([id number])[facility])[address] [place] [address] CO2 [Moles/Vol] 19 mmol/L Low 22-30 [facility] Comment on above: Performed By: #### L AB15 ####Configuration Management Analyst: WINSTON HEDRICK ([id number])[facility])[address] [place] [address] Creatinine [Mass/Vol] 0.83 mg/dL Normal 0.66-1.25 [facility] Comment on above: Performed By: #### L AB15 ####Configuration Management Analyst: WINSTON HEDRICK ([id number])[facility])[address] [place] [address] GLOMERULAR FILTRATION RATE ML/MIN/1.73 SQ M.PREDICTED 89.0 mL/min/1.73m*2 Normal >60.0 [facility] Comment on above: Result Comment: Calc ulation based on the Chronic Kidney Disease Epidemiology Collaboration (CKD-EPI) equation refit without adjustment for race Performed By: #### L AB15 ####Configuration Management Analyst: WINSTON HEDRICK ([id number])[facility])[address] [place] [address] Glucose [Mass/Vol] 263 mg/dL High 70-100 [facility] Comment on above: Performed By: #### L AB15 ####Configuration Management Analyst: WINSTON HEDRICK ([id number])[facility])[address] [place] [address] Potassium [Moles/Vol] 4.0 mmol/L Normal 3.5-5.1 [facility] Comment on above: Performed By: #### L AB15 ####Configuration Management Analyst: WINSTON HEDRICK ([id number])[facility])[address] [place] [address] Sodium [Moles/Vol] 134 mmol/L Low 135-145 [facility] Comment on above: Performed By: #### L AB15 ####Configuration Management Analyst: WINSTON HEDRICK ([id number])[facility])[address] [place] [address] Urea nitrogen [Mass/Vol] 16 mg/dL Normal 9-20 [facility] Comment on above: Performed By: #### L AB15 ####Configuration Management Analyst: WINSTON HEDRICK ([id number])[facility])[address] [place] [address] Basic metabolic 1998 panelon 06-20-2023 Anion gap [Moles/Vol] 10 mmol/L 3 - 13 mmol/L [facility] Calcium [Mass/Vol] 8.1 mg/dL Low 8.4 - 10. 4 mg/dL [facility] Chloride [Moles/Vol] 104 mmol/L 98 - 10 7 mmol/L [facility] CO2 [Moles/Vol] 19 mmol/L Low 22 - 30 mmol/L [facility] Creatinine [Mass/Vol] 0.83 mg/dL 0.66 - 1.25 mg/dL [facility] GFR/1.73 sq M.predicted MDRD (S/P/Bld) [Vol rate/Area] 89.0 mL/min/{1.73_m2} - PINF [facility] Comment on above: Calculation based on the Chronic Kidney Disease Epidemiology Collaboration (CKD-EPI) equation refit without adjustment for race Glucose [Mass/Vol] 263 mg/dL High 70 - 100 mg/dL [facility] Interpretation and review of laboratory results Abnormal [facility] Potassium [Moles/Vol] 4.0 mmol/L 3.5 - 5.1 mmol/L [facility] Sodium [Moles/Vol] 134 mmol/L Low 135 - 145 mmol/L [facility] Urea nitrogen [Mass/Vol] 16 mg/dL 9 - 20 mg/dL [facility] CARECOORDon 06-20-2023 [facility] Care Managment Initi al Assessment Date: 06/20/2023 Patient Name: Azar Triplett : 1945 Patient Information Source of Information: Patient Cognition/Language: WFL - Within Functional Limits 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 as indicated: Yes Confirmation of Payer with patient/family: Yes Payer Name: [facility] : No Confirmation of Primary Care Physician: Confirmed PCP Name: Seferino Hernandez Seen in last 2 years?: Yes Primary Caregiver: Self If assistance needed, confirmed caregiver ready, willing and able to care for patient at discharge: Yes Confirmed with: spouse Living Arrangements Current Residence: House Number of Floors 3 Number of Entry Steps: 2 Bed/Bath Levels: Separate floors Facility: Facility Name: Plan to Return: Lives with: Alone Support Systems: Spouse/significant other (Patient to go stay with spouse) Activities of Daily Living Ambulation: Independent Bathing/Dressing: Independent Elimination/Continence /Toileting: Independent Feeding: Independent Who Assists with Activities of Daily Living: Instrumental Activities of Daily Living Prescription Coverage: Yes Pharmacy Used: [facility] Medication Management: Independent Transportation/Shoppin g: (van, son will set up) Transportation Mode: Needs Assistance with Transportation at Discharge: No, Comments (son will arrange van transport home) Meal Preparation: Independent Laundry/Cleaning: Independent Finances/Bill Paying: Independent Communication: Independent Types of Care Services/Equipment Utilized Care Services: Dialysis Type: Durable Medical Equipment: Cane, Walker Patient's Goal/Discharge Plan Patient expects to be discharged to: home with home care Discharge Planning Actions: Continue to follow Patient's Choice Rights and [employer] and Collaborative Relationships Disclosed as Indicated for Post-Acute Care: Interdisciplinary Team Engagement: PT/OT Social Work Referral for: Additional Information: Patient admitted to H6 s/p anterior lumbar fusion. Reg 5 carb choice diet noted. Per RN accordian drain with increase output. PT/OT noted. PT recommending 24 hour supervision and home therapy. Met with pt at bedside, introduced self and explained role of TCC. Pt has insurance with RX coverage, active with PCP. Patient is Sabianism, son is in the room. Patient lives alone. Patient is going to stay with spouse after surgery. Son will arrange van transport home. Patient is agreeable to therapy at home. TCC to assist and follow as needed. Radha Martinez RN [facility] Consulton 06-20-2023 Consult [facility] Medicine Consult Patient - Azar Triplett, Age - 77 y.o. - 1945 Room Number - [id number] A Consulting - Guerda Alvarez MD Primary Care Physician [phone] Date of Admission - 06/19/2023 6:04 AM Hospital Day - 0 Reason for Consult: Medical Management HISTORY OF PRESENT ILLNESS: Azar is a 77 y.o. male pmhx below was consulted for medical management post lumbar fusion surgery for spondylolisthesis to the lumbosacral region. Post-operatively he is doing well - has pain when he attempt to sit up, eating well, scare to work with PT tomorrow. Denies any fever, chills, cough, SOB or congestions. No nausea. . Past Medical History: Past Medical History: Diagnosis Date Abnormal EKG Back pain recent steroid [id number] Cardiac murmur echo 06-14-23 EF 40-45%, moderate to severe aortic valve stenosis Diabetes (HCC) Hypertension PVC's (premature ventricular contractions) Past Surgical History: Past Surgical History: Procedure Laterality Date ACHILLES TENDON SURGERY APPENDECTOMY BACK SURGERY 2006 herniated disc HERNIA REPAIR Left LUMBAR FUSION 06/19/2023 LUMBAR 4/5-SACRAL 1, TOTAL KNEE ARTHROPLASTY Right WISDOM TOOTH EXTRACTION Medications: acetaminophen, 650 mg, Oral, q6h ceFAZolin, 2,000 mg, IntraVENous, q8h dexAMETHasone, 10 mg, IntraVENous, q8h famotidine, 20 mg, Oral, BID sodium chloride 0.9%, 10 mL, IntraVENous, 2 times per day lactated Ringer's, 50 mL/hr, Last Rate: Stopped (06/19/23 1410) PRN medications: baclofen, HYDROmorphone OR HYDROmorphone, hydrOXYzine HCl, naloxone, ondansetron ODT OR ondansetron, oxyCODONE-acetaminophe n OR oxyCODONE-acetaminophe n, polyethylene glycol (PEG) 3350, sodium chloride, sodium chloride 0.9% Allergies: Patient has no known allergies. Social History: Social History Socioeconomic History Marital status: Spouse name: Not on file Number of children: Not on file Years of education: Not on file Highest education level: Not on file Occupational History Not on file Tobacco Use Smoking status: Never Smokeless tobacco: Never Vaping Use Vaping Use: Never used Substance and Sexual Activity Alcohol use: Yes Alcohol/week: 2.0 standard drinks of alcohol Types: 2 Glasses of wine per week Drug use: Never Sexual activity: Not on file Other Topics Concern Not on file Social History Narrative Not on file Social Determinants of Health Financial Resource Strain: Not on file Food Insecurity: Not on file Transportation Needs: Not on file Physical Activity: Not on file Stress: Not on file Social Connections: Not on file Intimate Partner Violence: Not on file Housing Stability: Not on file Family History: No family history on file. REVIEW OF SYSTEMS: 10 point ROS obtained, as per HPI, otherwise NEG Physical Exam: Vitals: BP 157/83 (BP Location: Left arm, Patient Position: Lying) Pulse 102 Temp 37.7 ?C (99.9 ?F) (Temporal) Resp 20 SpO2 96% BMI Classification: Overweight (BMI 25.0-29.9) Pulse Ox: SpO2 Av.9 % Min: 95 % Max: 100 % Supplemental O2: O2 Flow Rate (L/min): 2 L/min Physical Exam Vitals and nursing note reviewed. Constitutional: Appearance: He is normal weight. HENT: Head: Normocephalic. Nose: No congestion or rhinorrhea. Mouth/Throat: Pharynx: Oropharynx is clear. Eyes: Conjunctiva/sclera: Conjunctivae normal. Pupils: Pupils are equal, round, and reactive to light. Cardiovascular: Rate and Rhythm: Normal rate and regular rhythm. Heart sounds: No murmur heard. No gallop. Pulmonary: Breath sounds: No wheezing or rales. Abdominal: General: Bowel sounds are normal. There is no distension. Tenderness: There is no abdominal tenderness. There is no guarding. Genitourinary: Comments: Metcalf draining clear urine Musculoskeletal: General: Tenderness and signs of injury present. Right lower leg: Edema present. Left lower leg: Edema present. Comments: Non-pitting edema bilaterally Dressing intact to lower spine around surgical site Blood in drainage tube Skin: Capillary Refill: Capillary refill takes less than 2 seconds. Findings: No bruising or erythema. Neurological: Mental Status: He is alert and oriented to person, place, and time. LABS: Recent Results (from the past 24 hour(s)) POCT glucose meter Collection Time: 06/19/23 6:16 AM Result Value Ref Range Glucose 120 (H) 70 - 100 mg/dL POCT glucose meter Collection Time: 06/19/23 2:17 PM Result Value Ref Range Glucose 237 (H) 70 - 100 mg/dL POCT glucose meter Collection Time: 06/19/23 4:43 PM Result Value Ref Range Glucose 245 (H) 70 - 100 mg/dL Urine Culture: Results for orders placed or performed in visit on 06/05/23 Urine culture Specimen: Urine, Clean Catch Result Value Ref Range Urine Culture Insignificant growth based on current clinical guidelines IMAGING: See re (more content not included)... Normal [facility] HEMOGLOBIN A1Con 06-20-2023 Glucose [Mass/Vol] 177 mg/dL Normal [facility] Comment on above: Performed By: #### L AB90 ####Configuration Management Analyst: WINSTON HEDRICK ([id number])[facility])[address] [place] [address] HbA1c (Bld) [Mass fraction] 7.8 % High <5.7 [facility] Comment on above: Result Comment: Norm al less than 5.7% Prediabetes 5.7% to 6.4% Diabetes 6.5% or higher --HgbA1C levels may not be accurate in patients who have renal disease, received recent blood transfusions, are anemic, or who have dyshemoglobinemia. Performed By: #### L AB90 ####Configuration Management Analyst: WINSTON HEDRICK ([id number])[facility])[address] [place] [address] HEMOGLOBIN AND HEMATOCRIT, B LOODon 06-20-2023 Hematocrit (Bld) [Volume fraction] 30.3 % Low 40.0-52.0 [facility] Comment on above: Performed By: #### L AB753 ####Configuration Management Analyst: WINSTON HEDRICK ([id number])[facility])[address] [place] [address] Hemoglobin (Bld) [Mass/Vol] 10.5 g/dL Low 13.0-18.0 [facility] Comment on above: Performed By: #### L AB753 ####Configuration Management Analyst: WINSTON HEDRICK ([id number])[address] Hemoglobin (Bld) [Mass/Vol]O rdered By: Lenore Odonnell on 06-20-2023 Hematocrit (Bld) [Volume fraction] 30.3 % Low 40.0 - 52.0 % [facility] Interpretation and review of laboratory results Abnormal [facility] IDNon 06-20-2023 IDN Problem: Pain - Adul t Goal: Verbalizes/displays adequate comfort level or baseline comfort level Outcome: Progressing Problem: Safety - Adult Goal: Free from fall injury Outcome: Progressing Problem: Discharge Planning Goal: Discharge to home or other facility with appropriate resources Outcome: Progressing Normal [facility] Laboratory - Chemistry and C hemistry - challengeon 06-20-2023 Glucose [Mass/Vol] 299 mg/dL High 70 - 100 mg/dL [facility] Glucose [Mass/Vol] 391 mg/dL High 70 - 100 mg/dL [facility] Average glucose Estimated from glycated hemoglobin (Bld) [Mass/Vol] 177 mg/dL [facility] Glucose [Mass/Vol] 435 mg/dL High 70 - 100 mg/dL [facility] Glucose [Mass/Vol] 352 mg/dL High 70 - 100 mg/dL [facility] Glucose [Mass/Vol] 325 mg/dL High 70 - 100 mg/dL [facility] Laboratory - Hematology and Cell countson 06-20-2023 HbA1c (Bld) [Mass fraction] 7.8 % High NINF - 5.7 % [facility] Comment on above: Normal less than 5.7 % Prediabetes 5.7% to 6.4% Diabetes 6.5% or higher --HgbA1C levels may not be accurate in patients who have renal disease, received recent blood transfusions, are anemic, or who have dyshemoglobinemia. Laboratory - Hematology and Cell countsOrdered By: Lenore Odonnell on 06-20-2023 Hemoglobin (Bld) [Mass/Vol] 10.5 g/dL Low 13.0 - 18.0 g/dL [facility] [employer] No Panel Informationon 06-20 Interpretation and review of laboratory results Abnormal [facility] [employer] Performed by: [facility] [employer] [facility], [address] [place] [address] CLIA ID: [id number] [facility] [employer] [facility] Interpretation and review of laboratory results Abnormal [facility] Performed by: [facility] [employer] [facility], [address] [place] [address] CLIA ID: [id number] [facility] [employer] [facility] Interpretation and review of laboratory results Abnormal [facility] Interpretation and review of laboratory results Abnormal [facility] Performed by: [facility], [address] [place] [id number] CLIA ID: [id number] [facility] [employer] [facility] Interpretation and review of laboratory results Abnormal [facility] Performed by: [facility] [employer] [facility], [address] [place] [id number] CLIA ID: [id number] [facility] Radiology Study observation (narrative) [facility] Radiology Study observation (narrative) [facility] Radiology Study observation (narrative) [facility] Radiology Study observation (narrative) [facility] Radiology Study observation (narrative) [facility] Progress Noteon 06-20-2023 Progress Note -- Attestation signed by Karol Pradhan MD at 06/21/2023 2:36 PM I have evaluated the patient and agree with the resident assessment and plan except for additional comments made in this note. Department of General Surgery Vascular Service Daily Progress Note ADMIT DATE: 06/19/2023 TODAY'S DATE: 06/20/2023 SUBJECTIVE: No acute events overnight. Pain is well controlled on current medications. Denies nausea and vomiting. Has not yet ambulated. Only took one tylenol this morning for pain which helped a lot. ROS: Noted above unless otherwise mentioned. OBJECTIVE: VITALS: Temp: [36.1 ?C (97 ?F)-37.8 ?C (100.1 ?F)] 37.8 ?C (100.1 ?F) Heart Rate: [86-111] 109 Resp: [14-25] 18 BP: (106-157)/(55-92) 150/88 Arterial Line BP 1: (121)/(56) 121/56 INTAKE/OUTPUT: Intake/Output Summary (Last 24 hours) at 06/20/2023 0950 Last data filed at 06/20/2023 0619 Gross per 24 hour Intake 3629.54 ml Output 3870 ml Net -240.46 ml I/O last 3 completed shifts: In: 3629.5 [I.V.:3105.5; IV Piggyback:524] Out: 3870 [Urine:2125; Drains:545; Blood:1200] No intake/output data recorded. PHYSICAL EXAM: Gen: NAD, A&Ox3, pain well controlled Heart: RRR, well perfused. Lungs: Symmetric chest rise, normal work of breathing, no respiratory distress. Abd: Soft, non-tender, non-distended. Incision with overlying dressing, no apparent saturation. Ext: Non-edematous, non-erythematous, no tenderness. Able to move BLE with good strength. Skin: Warm, dry, well perfused, no obvious rashes, cellulitis or gross discoloration LABS CBC: Auto WBC Date Value Ref Range Status 06/18/2023 9.1 3.6 - 10.7 10*3/uL Final Hemoglobin Date Value Ref Range Status 06/20/2023 10.5 (L) 13.0 - 18.0 g/dL Final 06/18/2023 15.0 13.0 - 18.0 g/dL Final Platelets Date Value Ref Range Status 06/18/2023 202 140 - 440 10*3/uL Final BMP: SODIUM Date Value Ref Range Status 06/20/2023 134 (L) 135 - 145 mmol/L Final 06/18/2023 136 135 - 145 mmol/L Final POTASSIUM Date Value Ref Range Status 06/20/2023 4.0 3.5 - 5.1 mmol/L Final 06/18/2023 3.3 (L) 3.5 - 5.1 mmol/L Final CHLORIDE Date Value Ref Range Status 06/20/2023 104 98 - 107 mmol/L Final 06/18/2023 103 98 - 107 mmol/L Final CARBON DIOXIDE Date Value Ref Range Status 06/20/2023 19 (L) 22 - 30 mmol/L Final 06/18/2023 26 22 - 30 mmol/L Final UREA NITROGEN Date Value Ref Range Status 06/20/2023 16 9 - 20 mg/dL Final 06/18/2023 14 9 - 20 mg/dL Final CREATININE Date Value Ref Range Status 06/20/2023 0.83 0.66 - 1.25 mg/dL Final 06/18/2023 0.81 0.66 - 1.25 mg/dL Final Hepatic: AST (SGOT) Date Value Ref Range Status 06/18/2023 49 (H) 15 - 46 U/L Final ALT Date Value Ref Range Status 06/18/2023 44 0 - 49 U/L Final ALBUMIN Date Value Ref Range Status 06/18/2023 4.2 3.5 - 5.0 g/dL Final BILIRUBIN, TOTAL Date Value Ref Range Status 06/18/2023 1.0 0.2 - 1.3 mg/dL Final ALKALINE PHOSPHATASE Date Value Ref Range Status 06/18/2023 55 38 - 126 U/L Final Current Inpatient Medications Scheduled Meds:acetaminophen, 650 mg, Oral, q6h amLODIPine, 10 mg, Oral, Daily dexAMETHasone, 10 mg, IntraVENous, q8h famotidine, 20 mg, Oral, BID [Held by provider] glipiZIDE, 10 mg, Oral, qAM AC hydroCHLOROthiazide, 12.5 mg, Oral, Daily insulin lispro, 0-6 Units, SubCUTAneous, TID WC And insulin lispro, 0-6 Units, SubCUTAneous, Nightly lisinopril, 20 mg, Oral, Daily sodium chloride 0.9%, 10 mL, IntraVENous, 2 times per day Continuous Infusions:lactated Ringer's, 50 mL/hr, Last Rate: Stopped (06/19/23 1410) PRN Meds:PRN medications: baclofen, dextrose, dextrose, glucagon (rDNA), glucose, HYDROmorphone OR HYDROmorphone, hydrOXYzine HCl, naloxone, ondansetron ODT OR ondansetron, oxyCODONE-acetaminophe n OR oxyCODONE-acetaminophe n, polyethylene glycol (PEG) 3350, sodium chloride, sodium chloride 0.9% ASSESSMENT: 77 y.o. male s/p ALIF L4/5, L5/S1, PSF L4-S1, Laminectomy L1-L5 with Dr. Page with Dr. Pradhan for additional vascular exposure. Patient doing well post-operatively from vascular perspective. PLAN: - Drain management per orthopedics - Pain and nausea medications PRN - OOBA - Vascular surgery to sign off, please call with questions or concerns Will discuss with Dr. Pradhan. Sheng Mazariegos MD General Surgery PGY-1 Pager [phone] [facility] Laboratory - Chemistry and C hemistry - challengeon 06-19-2023 Glucose [Mass/Vol] 245 mg/dL High 70 - 100 mg/dL [facility] Glucose [Mass/Vol] 237 mg/dL High 70 - 100 mg/dL [facility] Glucose [Mass/Vol] 120 mg/dL High 70 - 100 mg/dL [facility] No Panel Informationon 06-19 Interpretation and review of laboratory results Abnormal [facility] Performed by: [facility], [address] [place] [id number] CLIA ID: [id number] [facility] Interpretation and review of laboratory results Abnormal [facility] Performed by: [facility], [address] [place] [id number] CLIA ID: [id number] [facility] There is no interpretation needed for this exam. IMAGING Interpretation and review of laboratory results Abnormal [facility] Performed by: [facility], [address] [place] [id number] CLIA ID: [id number] [facility] Radiology Study observation (narrative) [facility] Radiology Study observation (narrative) [facility] Radiology Study observation (narrative) [facility] [facility] Nursing Noteon 06-19-2023 Nursing Note Pt son, Perry, jero ed at this time. Pt family leaving for dinner- asked to be called once pt has room assigned. Normal [facility] Nursing Note Patient report is called to H6 LOUIS Gilman and denies any further questions at this time. Patient is resting comfortably at this time and asleep but arouses to voice. Normal [facility] Op Noteon 06-19-2023 Op Note OPERATIVE NOTE Azar Triplett 1945 DATE OF PROCEDURE: 06/19/2023 SURGEON: Karol Pradhan MD, Kaylee REYNOSO Procedure: Anterior lumbar spine exposure with discectomy and fusion of L4-S1 Preoperative Diagnosis: Degenerative disc disease of L4-S1 Postoperative Diagnosis: Same Anesthesia: General. Assist: Josefina Estimated Blood Loss: 200 cc Indications: 77-year-old white male brought to the operating room by Dr. Page for an anterior lumbar spine approach. Description of Procedure: Patient was placed in the supine position and general anesthesia was induced. Abdomen was shaved prepped and draped in the usual sterile fashion. A transverse left lower quadrant incision was made and through this incision the left rectus sheath was identified. A Z shaped incision was made in the left rectus sheath and then the left rectus muscle was retracted laterally. Using blunt dissection the retroperitoneum was dissected down to the iliac vessels and spine. The L5-S1 disc space was exposed between the iliac vessels. The middle sacral artery and vein were ligated with hemoclips and divided to facilitate the exposure. The L4-5 disc space was exposed by mobilizing the aorta and vena cava to the right side of the spine and several lumbar branches were ligated to facilitate this exposure. Once both levels were adequately exposed Dr. Page proceeded with his portion of the case which will be dictated separately. Once he was finished the retractors were removed placing the iliac vessels and retroperitoneum back into normal position. The anterior rectus sheath was then reconstructed with 0 PDS suture followed by subcutaneous closure and skin isabel. Estimated blood loss for the procedure was 200 cc and sponge needle counts were correct at the end of the case. Karol Pradhan MD [facility] Op Note OPERATIVE NOTE Patient Name: Azar Triplett : 1945 DATE OF PROCEDURE: 06/19/2023 SURGEON: Guerda Page MD PREOPERATIVE DIAGNOSES: Spondylolisthesis, Stenosis POSTOPERATIVE DIAGNOSES: Same PROCEDURE: Anterior Lumbar Interbody Fusion L4-5-S1, LT Peek Cage, Bone Morphogenic Protein Posterior Fusion L4-5-S1, Decompression I4-9-5-4-5-S1, Solera Pedicle Instrumentation, Local Bone ANESTHESIA: General ESTIMATED BLOOD LOSS: 1000 cc INDICATION FOR PROCEDURE: Back and leg pain DESCRIPTION OF PROCEDURE: The patient is a 77-year-old gentleman who comes in with back and bilateral leg pain with claudication from severe multilevel spinal stenosis and segmental instability nonresponsive to conservative care. In the OR prior to the induction of anesthesia he was identified. After adequate of anesthesia he was positioned on the flat Myke table supine. We used preoperative antibiotics compression boots and TXA. His abdominal and pelvic region was prepped and draped in usual sterile fashion. Timeout was performed. The anterior exposure was performed by Dr. Karol Pradhan which will be dictated under separate heading. Dr. Pradhan gave us excellent visualization of the anterior L4-5 and L5-S1 disc spaces with radiologic markers marking her levels. We entered the 4 5 disc and with pituitaries performed a subtotal discectomy. Using sequential dilators and sizers we were able to reduce the spondylolisthesis and restore the disc height to 10 mm. Double barrel LT cage boat hand was then tamped into position. We reamed to 32 mm x 2. We inserted a size 14 x 23 threaded LT peek cages x 2. IntraOp fluoroscopy confirmed good position and alignment. Retractors and distractors then reapplied at L5-S1. Once again disc was prepared discectomy performed with a pituitary. We distracted to a height of 10 mm. A double barrel size 14 LT peek cage boat hand used. We reamed to 32 mm x 2. 14 x 23 LT peek cages x 2 were threaded in the position. IntraOp fluoroscopy confirmed good position alignment. Hemostasis was confirmed. The cages at L4-5 and L5-S1 were packed with bone morphogenic protein and a collagensponge per FDA protocol. Hemostasis was confirmed. Closure will be performed by vascular surgery dictated under separate heading. Under the same anesthesia patient was then positioned prone on the prone Myke table. Padding was confirmed throughout. We used preoperative antibiotics compression boots and TXA. We marked her levels with IntraOp fluoroscopy. The posterior lumbar region was prepped and draped in usual sterile fashion. Timeout was performed. Midline incision was made from L1-S1. Fascia was incised and expose the laminas from L1 to the sacrum and the transverse process at L4-L5 and the sacral ala. We identified the pedicles at the junction of the pars and transverse process. We then burred starting holes past gearshift probes palpated the inner vaughan with blunt pelter probes and used 6.5 x 40 mm Solera pedicle screws at bilateral L4 and left L5 and bilateral S1. We directly stimulated each pedicle screw and adequate spinal potentials recorded. IntraOp fluoroscopy confirmed good position and alignment. Appropriate rods and connectors were applied and tightened down. At this point we commenced our decompression with a rongeur taking out the spinous process of L1-L2 L3-L4-L5 and S1. We entered the L5-S1 interlaminar window. With a #4 Kerrison marching proximally we took off the laminas of L5 L4 L3 L2 and L1. Then decompressed into the bilateral L1-L2 L3-L4-L5 and S1 neuroforamen undercutting the facet joints and mobilizing the nerve roots bilaterally. We decorticated the transverse process facet joints at L4-L5 and the sacral ala. We took a local bone morselized and a bone mill and packed it into the posterolateral gutters. Appropriate rods and connectors were applied and final tightened was applied. Valsalva maneuver was performed no CSF leak was seen. Wound was thoroughly irrigated hemostasis confirmed. Deep Hemovac drain placed. Fascia closed with Vicryl. Skin closed with Vicryl and isabel. Sponge and needle counts were correct sterile dressings were applied. He was positioned supine extubated and brought to the recovery room in stable condition. [facility] Op Note Date: 06/19/2023 Location: [facility] OR Name: Azar Triplett, : 1945, Diagnosis Pre-op Diagnosis * Spondylolisthesis, lumbosacral region [M43.17] Post-op Diagnosis * Spondylolisthesis, lumbosacral region [M43.17] Procedures ANTERIOR LUMBAR INTERBODY FUSION LUMBAR 4/5-SACRAL 1, INTERBODY DEVICE BONE MORPHOGENETIC PROTEIN, POSTERIOR FUSION LUMBAR 4/5-SACRAL 1, DECOMPRESSION LUMBAR 2-5-0-4-5-SACRAL 1, PEDICLE INSTRUMENTATION AND LOCAL BONE 33864 - [place] ARTHRD ANT INTERBODY MIN DSC LUMBAR ANTERIOR MICRODISCECTOMY AND FUSION EACH ADDITIONAL LEVEL 85198 - [place] ARTHRD ANT NTRBD MIN DSC EA ADDL INTERSPACE INSERTION OF INTERBODY BIOMECHANICAL DEVICE 46389 - [place] INSJ BIOMCHN DEV INTERVERTEBRAL DSC SPC W/ARTHRD POSTERIOR LUMBAR FUSION 00413 - [place] ARTHRODESIS POSTERIOR/PSTLAT TQ 1NTRSPC LUMBAR POSTERIOR OR POSTEROLATERAL FUSION EACH ADDITIONAL LEVEL 10451 - [place] ARTHRODESIS PST/PSTLAT TQ 1NTRSPC EA ADDL NTRSPC POSTERIOR LUMBAR LAMINECTOMY FACETECTOMY FORAMINOTOMY AND DECOMPRESSION 82200 - [place] AGUILLON FACETECTOMY & FORAMOTOMY 1 VRT SGM LUMBAR POSTERIOR CERVICAL/THORACIC/LUMB AR LAMINECTOMY FACETECTOMY FORAMINOTOMY AND DECOMPRESSION EACH ADDITIONAL 68569 - [place] AGUILLON FACETECTOMY&FORAMOT 1 VRT SGM EA ADDL SGM POSTERIOR SPINAL INSTRUMENTATION 3 TO 6 LEVELS 52505 - [place] POSTERIOR SEGMENTAL INSTRUMENTATION 3-6 VRT SEG Surgeons * Guerda Page V - Primary * Drazen Petrinec - Assisting Procedure Summary Anesthesia: General ASA: III Estimated Blood Loss: 1200 mL Drains: Closed/Suction Drain Inferior Back Accordion 10 Fr. (Active) Urethral Catheter Straight-tip 16 Fr. (Active) Implants Type Name Action Serial No. Graft KIT INFUSE BONE GRAFT XL 8.0CC - [id number] Used, Not Implanted Spinal Hardware CAGE SPINE LUMBAR 14X17.5X23MM - [id number] Implanted Spinal Hardware SCREW SPINAL 6.9IMM48AM - [id number] Implanted Spinal Hardware SCREW SET TI SPINAL BREAK OFF - [id number] Implanted Spinal Hardware JODY SPNL CROMALLOY BENT 5.5X55 - [id number] Wasted Spinal Hardware JODY SPNL CROMALLOY BENT 5.5X60 - [id number] Implanted Staff: Tutoring Clinician: Jewel Shaw RN; Conor Pinto RN Scrub Person: Allen Bowman Findings: See full op note Complications: None; patient tolerated the procedure well. Specimens Collected: Order Name Source Comment Collection Info Order Time POTASSIUM WITH MG REFLEX For patients on dialysis to draw potassium day of surgery 06/19/2023 6:13 AM PROTHROMBIN TIME If patient on coumadin within 4 days prior. 06/19/2023 6:13 AM Wound Class: Class I: Clean Blood Products: None Prophylactic Antibiotics: Procedure appropriate prophylactic antibiotic(s) given within 1 hour of surgical incision (two hours if receiving Vancomycin or flouroquinolone) Plan -Decadron 10 mg q8h x 3 doses -Baclofen 10 mg q12h prn -Ancef 2 g q8h x 24hrs -Drain I/O q shift; Pull when POD3 <20cc x consecutive shifts -Diet: advance diet as tolerated to full -No DVT ppx, SCDs and ambulation -Multimodal pain control regimen ordered -WBAT; up w/ assistance -PT/OT -No spinal precautions -NV checks q4 hrs -Ortho primary [facility] XR ABDOMEN 1 VIEWon 06-19-19 24 XR ABDOMEN 1 VIEW Patient Name: AZAR TRIPLETT : 1945 Exam Date/Time: 06/19/2023 11:10 Procedure: XR ABDOMEN 1 VIEW Ordering Provider: PAGE RAJIV Reason For Exam: FOREIGN BODY EXAM TYPE: XR ABDOMEN 1 VIEW EXAM DATE AND TIME: 06/19/2023 11:10 AM EST INDICATION: 77 years Male with foreign body, confirm instrument count COMPARISON: none TECHNIQUE: AP supine radiograph of the abdomen and pelvis was obtained. FINDINGS: Multiple surgical isabel are present. A Metcalf catheter is present. Surgical hardware is seen in the spine. No other radiopaque foreign body is seen. Mildly dilated small bowel large bowel loops. Moderate stool in the colon. Limited evaluation for free air or air-fluid levels on supine-only imaging. No abnormal soft tissue calcifications are seen. Postsurgical and degenerative changes in the spine. The lung bases are not included in the field of view. IMPRESSION: Multiple surgical isabel are present. A Metcalf catheter is present. Surgical hardware is seen in the spine. No other radiopaque foreign body is seen. Large amount of stool in the colon, possibly related to constipation. Mildly dilated bowel suggesting ileus. Recommend continued imaging follow-up. CT could be obtained for further evaluation if indicated. Report Dictated on Electronically Signed By: Yovany Lerma MD Electronically Signed Date/Time: 06/19/2023 12:51 PM EST Normal [facility] XR Abdomen Single viewon Multiple surgical isabel are present. A Metcalf catheter is present. Surgical hardware is seen in the spine. No other radiopaque foreign body is seen. Large amount of stool in the colon, possibly related to constipation. Mildly dilated bowel suggesting ileus. Recommend continued imaging follow-up. CT could be obtained for further evaluation if indicated. Report Dictated on Electronically Signed By: Yovany Lerma MD Electronically Signed Date/Time: 06/19/2023 12:51 PM EST [facility] RADIOLOGY SYSTEM Patient Name: AZAR TRIPLETT : 1945 Exam Date/Time: 06/19/2023 11:10 Procedure: XR ABDOMEN 1 VIEW Ordering Provider: PAGE RAJIV Reason For Exam: FOREIGN BODY EXAM TYPE: XR ABDOMEN 1 VIEW EXAM DATE AND TIME: 06/19/2023 11:10 AM EST INDICATION: 77 years Male with foreign body, confirm instrument count COMPARISON: none TECHNIQUE: AP supine radiograph of the abdomen and pelvis was obtained. FINDINGS: Multiple surgical isabel are present. A Metcalf catheter is present. Surgical hardware is seen in the spine. No other radiopaque foreign body is seen. Mildly dilated small bowel large bowel loops. Moderate stool in the colon. Limited evaluation for free air or air-fluid levels on supine-only imaging. No abnormal soft tissue calcifications are seen. Postsurgical and degenerative changes in the spine. The lung bases are not included in the field of view. [facility] Yovany Lerma MD - 06/19/2023 Patient Name: AZAR TRIPLETT : 1945 Exam Date/Time: 06/19/2023 11:10 Procedure: XR ABDOMEN 1 VIEW Ordering Provider: PAGE RAJIV Reason For Exam: FOREIGN BODY EXAM TYPE: XR ABDOMEN 1 VIEW EXAM DATE AND TIME: 06/19/2023 11:10 AM EST INDICATION: 77 years Male with foreign body, confirm instrument count COMPARISON: none TECHNIQUE: AP supine radiograph of the abdomen and pelvis was obtained. FINDINGS: Multiple surgical isabel are present. A Metcalf catheter is present. Surgical hardware is seen in the spine. No other radiopaque foreign body is seen. Mildly dilated small bowel large bowel loops. Moderate stool in the colon. Limited evaluation for free air or air-fluid levels on supine-only imaging. No abnormal soft tissue calcifications are seen. Postsurgical and degenerative changes in the spine. The lung bases are not included in the field of view. IMPRESSION: Multiple surgical isabel are present. A Metcalf catheter is present. Surgical hardware is seen in the spine. No other radiopaque foreign body is seen. Large amount of stool in the colon, possibly related to constipation. Mildly dilated bowel suggesting ileus. Recommend continued imaging follow-up. CT could be obtained for further evaluation if indicated. Report Dictated on Electronically Signed By: Yovany Lerma MD Electronically Signed Date/Time: 06/19/2023 12:51 PM EST [facility] [employer] Radiology Study observation (narrative) [facility]endor XR Abdomen Single viewOrdere d By: Yovany Lerma on 06-19-2023 [facility] Work Phone: BLOOD TYPE AND SCREEN GELon 06-18-2023 ABO GROUPING A Normal [facility] Comment on above: Performed By: #### L [id number] ####Configuration Management Analyst: WINSTON HEDRICK ([id number])[facility] ([facility])[address] [place] [address] RH TYPE IN BLOOD Positive Normal [facility] Comment on above: Performed By: #### L [id number] ####Configuration Management Analyst: WINSTON HEDRICK ([id number])[facility] ([facility])[address] [place] [address] CBC (HEMOGRAM)on 06-18-2023 Erythrocyte distribution width (RBC) [Ratio] 13.3 % Normal 11.5-14.5 [facility] Comment on above: Performed By: #### L [id number] ####Configuration Management Analyst: WINSTON HEDRICK ([id number])[facility] ([facility])[address] [place] [address] ERYTHROCYTE MEAN CORPUSCULAR HEMOGLOBIN CONCENTRATION (G/DL) BY AUTOMATED 33.7 % Normal 32.0-36.0 [facility] Comment on above: Performed By: #### L [id number] ####Configuration Management Analyst: WINSTON HEDRICK ([id number])[facility])[address] [place] [address] Hematocrit (Bld) [Volume fraction] 44.6 % Normal 40.0-52.0 [facility] Comment on above: Performed By: #### L [id number] ####Configuration Management Analyst: WINSTON HEDRICK ([id number])[facility])[address] [place] [address] Hemoglobin (Bld) [Mass/Vol] 15.0 g/dL Normal 13.0-18.0 [facility] Comment on above: Performed By: #### L [id number] ####Configuration Management Analyst: WINSTON HEDRICK ([id number])[facility] ([facility])[address] [place] [address] MCH (RBC) [Entitic mass] 29.6 pg Normal 26.0-34.0 [facility] Comment on above: Performed By: #### L [id number] ####Configuration Management Analyst: WINSTON HEDRICK ([id number])[facility])[address] [place] [address] MCV (RBC) [Entitic vol] 87.8 fL Normal 80.0-98.0 [facility] Comment on above: Performed By: #### L [id number] ####Configuration Management Analyst: WINSTON HEDRICK ([id number])[facility])[address] [place] [address] Platelet mean volume (Bld) [Entitic vol] 8.4 fL Normal 7.4-12.4 [facility] Comment on above: Performed By: #### L [id number] ####Configuration Management Analyst: WINSTON HEDRICK ([id number])[facility] ([facility])[address] [place] [address] Platelets (Bld) [#/Vol] 202 10*3/uL Normal 140-440 [facility] Comment on above: Performed By: #### L [id number] ####Configuration Management Analyst: WINSTON HEDRICK ([id number])[facility])[address] [place] [address] RBC (Bld) [#/Vol] 5.08 10*6/uL Normal 4.40-5.90 [facility] Comment on above: Performed By: #### L [id number] ####Configuration Management Analyst: WINSTON HEDRICK ([id number])[facility])[address] [place] [address] WBC (Bld) [#/Vol] 9.1 10*3/uL Normal 3.6-10.7 [facility] Comment on above: Performed By: #### L [id number] ####Configuration Management Analyst: WINSTON HEDRICK ([id number])[facility])[address] [place] [address] COMPREHENSIVE METABOLIC PANE [place] 06-18-2023 Albumin [Mass/Vol] 4.2 g/dL Normal 3.5-5.0 [facility] Comment on above: Performed By: #### L AB17 ####Configuration Management Analyst: WINSTON HEDRICK ([id number])[facility] ([facility])[address] [place] [address] ALP [Catalytic activity/Vol] 55 U/L Normal 38-126 [facility] Comment on above: Performed By: #### L AB17 ####Configuration Management Analyst: WINSTON HEDRICK ([id number])[facility] ([facility])[address] [place] [address] ALT [Catalytic activity/Vol] 44 U/L Normal 0-49 [facility] Comment on above: Performed By: #### L AB17 ####Configuration Management Analyst: WINSTON HEDRICK ([id number])[facility] ([facility])[address] [place] [address] Anion gap [Moles/Vol] 7 mmol/L Normal 3-13 [facility] Comment on above: Performed By: #### L AB17 ####Configuration Management Analyst: WINSTON HEDRICK ([id number])[facility] ([facility])[address] [place] [address] AST [Catalytic activity/Vol] 49 U/L High 15-46 [facility] Comment on above: Performed By: #### L AB17 ####Configuration Management Analyst: WINSTON HEDRICK ([id number])[facility])[address] [place] [address] Bilirubin [Mass/Vol] 1.0 mg/dL Normal 0.2-1.[address] [facility] Comment on above: Performed By: #### L AB17 ####Configuration Management Analyst: WINSTON HEDRICK ([id number])[facility])[address] [place] [address] Calcium [Mass/Vol] 9.1 mg/dL Normal 8.4-10.4 [facility] Comment on above: Performed By: #### L AB17 ####Configuration Management Analyst: WINSTON HEDRICK ([id number])[facility] ([facility])[address] [place] [address] Chloride [Moles/Vol] 103 mmol/L Normal 98-107 [facility] Comment on above: Performed By: #### L AB17 ####Configuration Management Analyst: WINSTON HEDRICK ([id number])[facility])[address] [place] [address] CO2 [Moles/Vol] 26 mmol/L Normal 22-30 [facility] Comment on above: Performed By: #### L AB17 ####Configuration Management Analyst: WINSTON HEDRICK ([id number])[facility])[address] [place] [address] Creatinine [Mass/Vol] 0.81 mg/dL Normal 0.66-1.25 [facility] Comment on above: Performed By: #### L AB17 ####Configuration Management Analyst: WINSTON HEDRICK ([id number])[facility] ([facility])[address] [place] [address] GLOMERULAR FILTRATION RATE ML/MIN/1.73 SQ M.PREDICTED 89.7 mL/min/1.73m*2 Normal >60.0 [facility] Comment on above: Result Comment: Calc ulation based on the Chronic Kidney Disease Epidemiology Collaboration (CKD-EPI) equation refit without adjustment for race Performed By: #### L AB17 ####Configuration Management Analyst: WINSTON HEDRICK ([id number])[facility] ([facility])[address] [place] [address] [place] Glucose [Mass/Vol] 113 mg/dL High 70-100 [facility] Comment on above: Performed By: #### L AB17 ####Configuration Management Analyst: WINSTON HEDRICK ([id number])[facility])[address] [place] [address] Potassium [Moles/Vol] 3.3 mmol/L Low 3.5-5.1 [facility] Comment on above: Performed By: #### L AB17 ####Configuration Management Analyst: WINSTON HEDRICK ([id number])[facility] [address] Protein [Mass/Vol] 7.4 g/dL Normal 6.3-8.2 [facility] Comment on above: Performed By: #### L AB17 ####Configuration Management Analyst: WINSTON HEDRICK ([id number])[facility])[address] [place] [address] Sodium [Moles/Vol] 136 mmol/L Normal 135-145 [facility] Comment on above: Performed By: #### L AB17 ####Configuration Management Analyst: WINSTON HEDRICK ([id number])[address] Urea nitrogen [Mass/Vol] 14 mg/dL Normal 9-20 [facility] Comment on above: Performed By: #### L AB17 ####Configuration Management Analyst: WINSTON HEDRICK ([id number])[address] PREPROCINSon 06-18-2023 PREPROCINS Medication List Accurate as of June 18, 2023 4:56 PM. Always use your most recent med list. amLODIPine 10 MG tablet Commonly known as: Norvasc Medication Adjustments for Surgery: Take morning of surgery glimepiride 4 MG tablet Commonly known as: Amaryl Medication Adjustments for Surgery: Hold morning of surgery hydroCHLOROthiazide 12.5 MG capsule Commonly known as: Microzide Medication Adjustments for Surgery: Hold morning of surgery lisinopril 20 MG tablet Medication Adjustments for Surgery: Hold morning of surgery Additional Instructions: You may take your prescription pain medication. You may take Tylenol for pain. NO Motrin, ibuprofen or Advil for 24 hours prior to surgery or longer if instructed by your surgeon. NO Aleve or Naprosyn for 5 days prior to surgery or longer if instructed by your surgeon. DO NOT take aspirin or aspirin containing products for 5 days before surgery, or longer if instructed by your surgeon. Follow any instructions given to you by Dr. Page Take a shower with the soap provided the night prior to surgery. (Do not use on face or private areas). Clean pajamas and linen to bed that night. Shower again the morning of surgery. Clean clothes to the hospital. No lotion, powder, deodorant or body sprays. No hair products. Remove all jewelry and leave it at home. Wear loose comfortable clothing to go home in. You may brush your teeth morning of surgery. Do not wear contacts day of surgery. No alcohol for 24 hours prior to surgery. If you have specific questions, please call your surgeon. You will receive a call the day before your surgery to verify your arrival time and date. You will be asked to arrive at least two hours prior to your scheduled surgery time. Please bring your [facility] Surgical folder and medication list with you day of surgery. We encourage you to write down any questions you may have for the surgeon, anesthesiologist, or other members of the surgical team and bring it with you the day of surgery. Please bring photo ID and insurance information. ECONOMIC HISTORY TEACHER AND PARKING IN THE MAIN DECK ARE FREE DAY OF SURGERY. PARKING IN THE DECK-- AFTER PARKING TAKE THE ELEVATOR TO LEVEL ONE AND TAKE THE BRIDGE TO THE HOSPITAL. GO TO THE RIGHT AND GO AROUND THE CORNER TO THE SAME DAY SURGERY DESK AND CHECK IN THERE. IF GOING IN THE MAIN ENTRANCE-- TURN LEFT AND GO DOWN THE [address] TO THE H ELEVATORS AND TAKE THEM TO ONE, LEFT OFF THE ELEVATOR AND GO AROUND TO THE SAME DAY DESK AND CHECK IN. Normal [facility] 36on 06-15-2023 36 FYI-Per Dr. Page' s office this case has been changed to be done at [facility] on 06/19/23. Start time will be at 7:30 am but you can come after your meeting that morning. Normal [facility] US Heart Transthoracicon Aortic Valve Area by Continuity of Peak Velocity 1.10 cm2 [facility] Work Phone: Aortic Valve Area by Continuity of VTI 1.05 cm2 [facility] Work Phone: AV mn grad 20.6 mmHg [facility] Work Phone: AV pk grad 37.2 mmHg [facility] Work Phone: AV pk celine 3.05 m/s [facility] Work Phone: LA vol index A/L 35.2 ml/m2 [facility] Work Phone: LV A4C EF 41.6 [facility] Work Phone: LV biplane EF 40 % [facility] Work Phone: LV GLS -13.7 % [facility] Work Phone: LVIDd 4.89 cm [facility] Work Phone: LVOT diam 2.06 cm [facility] Work Phone: MV avg E/e' ratio 14.71 [facility] Work Phone: MV E/A ratio 0.70 [facility] Work Phone: RV free wall pk S' 11.00 cm/s [facility] Work Phone: RVSP 30.0 mmHg [facility] Work Phone: Tricuspid annular plane systolic excursion 2.0 cm [facility] Work Phone: [facility] [place] [address] and TRANSTHORACIC ECHOCARDIOGRAM REPORT Patient Name: AZAR Guevara Physician: Ricky Donahue MD Study Date: 06/14/2023 Ordering Provider: Ricky DONAHUE MRN/PID: [id number] Fellow: Nurse: Date of /Age: 4 1945 / 77 years 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 A bubble study was not performed. PHYSICIAN INTERPRETATION: Left Ventricle: The left ventricular systolic function is mildly decreased, with an estimated ejection fraction of 40-45%. There are no regional wall motion abnormalities. The left ventricular cavity size is normal. Left Ventricular Global Longitudinal Strain - -13.7 %. Spectral Doppler shows an impaired relaxation pattern of left ventricular diastolic filling. Strain values are abnormal and are consistent with impaired LV function. LV Wall Scoring: The entire anterior wall, basal and mid anterolateral wall, and apical lateral segment are hypokinetic. All remaining scored segments are normal. Left Atrium: The left atrium is mildly dilated. Right Ventricle: The right ventricle is normal in size. There is normal right ventricular global systolic function. Right Atrium: The right atrium is normal in size. Aortic Valve: The aortic valve is trileaflet. There is moderate to severe aortic valve cusp calcification. There is There is reduced systolic aortic valve leaflet excursion. There is evidence of moderate to severe aortic valve stenosis. There is mild aortic valve regurgitation. The peak instantaneous gradient of the aortic valve is 37.2 mmHg. The mean gradient of the aortic valve is 20.6 mmHg. Mitral Valve: The mitral valve is mildly thickened. There is mild mitral valve regurgitation. Tricuspid Valve: The tricuspid valve is structurally normal. There is mild tricuspid regurgitation. Pulmonic Valve: The pulmonic valve is structurally normal. There is no indication of pulmonic valve regurgitation. Pericardium: There is no pericardial effusion noted. Aorta: The aortic root is normal. CONCLUSIONS: 1. Left ventricular systolic function is mildly decreased with a 40-45% estimated ejection fraction. 2. Entire anterior wall, basal and mid anterolateral wall, and apical lateral segment are abnormal. 3. Spectral Doppler shows an impaired relaxation pattern of left ventricular diastolic filling. 4. Moderate to severe aortic valve stenosis. 5. There is moderate to severe aortic valve cusp calcification. 6. Mild aortic valve regurgitation. QUANTITATIVE DATA SUMMARY: 2D MEASUREMENTS: Normal Ranges: LAs: 3.68 cm (2.7-4.0cm) RVIDd: 1.82 cm (0.9-3.6cm) IVSd: 1.28 cm (0.6-1.1cm) LVPWd: 1.02 cm (0.6-1.1cm) LVIDd: 4.89 cm (3.9-5.9cm) LVIDs: 3.13 cm LV Mass Index: 112.5 g/m2 LV % FS 36.1 % LA VOLUME: Normal Ranges: LA Vol A4C: 76.8 ml (22+/-6mL/m2) LA Vol A2C: 56.4 ml LA Vol BP: 66.4 ml LA Vol Index A4C: 40.7 ml/m2 LA Vol Index A2C: 29.9 ml/m2 LA Vol Index BP: 35.2 ml/m2 LA Area A4C: 22.5 cm2 LA Area A2C: 19.1 cm2 LA Major Cushing A4C: 5.6 cm LA Major [place]ushing A2C: 5.5 cm LA Vol A4C: 70.4 ml LA Vol A2C: 53.2 ml RA VOLUME BY A/L METHOD: Normal Ranges: RA Vol A4C: 16.3 ml (8.3-19.5ml) RA Vol Index A4C: 8.7 ml/m2 RA Area A4C: 9.4 cm2 RA Major Cushing A4C: 4.6 cm LV SYSTOLIC FUNCTION BY 2D PLANIMETRY (MOD): Normal Ranges: EF-A4C View: 41.6 % (>=55%) EF-A2C View: 35.1 % EF-Biplane: 40.5 % Global Longitudinal Strain (GLS): -13.7 % LV DIASTOLIC FUNCTION: Normal Ranges: MV Peak E: 0.74 m/s (more content not included)... Luis Rebolledo MD - 06/14/2023 [facility] [place] [address] and TRANSTHORACIC ECHOCARDIOGRAM REPORT Patient Name: AZAR Guevara Physician: Ricky Donahue MD Study Date: 06/14/2023 Ordering Provider: [id number] DONAHUE MRN/PID: [id number] Fellow: Nurse: Date of /Age: 4 1945 / 77 years Environmental Services Project Manager: LENA Gender: M Additional Staff: Height: 165.10 cm Admit Date: 06/14/2023 Weight: 81.19 kg Admission Status: Outpatient BSA / BMI: 1.89 m2 / 29.79 kg/m2 Department Location: [facility] Blood Pressure: 178 /95 mmHg Study Type: TRANSTHORACIC ECHO (TTE) COMPLETE Diagnosis/ICD: Abnormal electrocardiogram [ECG] [EKG]-R94.31; Cardiac murmur, unspecified-R01.1 Indication: Abnormal EKG, Heart Murmur CPT Code: Echo Complete w Full Doppler-24139 Study Detail: The following Echo studies were performed: 2D, M-Mode, Doppler and color flow. A bubble study was not performed. PHYSICIAN INTERPRETATION: Left Ventricle: The left ventricular systolic function is mildly decreased, with an estimated ejection fraction of 40-45%. There are no regional wall motion abnormalities. The left ventricular cavity size is normal. Left Ventricular Global Longitudinal Strain - -13.7 %. Spectral Doppler shows an impaired relaxation pattern of left ventricular diastolic filling. Strain values are abnormal and are consistent with impaired LV function. LV Wall Scoring: The entire anterior wall, basal and mid anterolateral wall, and apical lateral segment are hypokinetic. All remaining scored segments are normal. Left Atrium: The left atrium is mildly dilated. Right Ventricle: The right ventricle is normal in size. There is normal right ventricular global systolic function. Right Atrium: The right atrium is normal in size. Aortic Valve: The aortic valve is trileaflet. There is moderate to severe aortic valve cusp calcification. There is There is reduced systolic aortic valve leaflet excursion. There is evidence of moderate to severe aortic valve stenosis. There is mild aortic valve regurgitation. The peak instantaneous gradient of the aortic valve is 37.2 mmHg. The mean gradient of the aortic valve is 20.6 mmHg. Mitral Valve: The mitral valve is mildly thickened. There is mild mitral valve regurgitation. Tricuspid Valve: The tricuspid valve is structurally normal. There is mild tricuspid regurgitation. Pulmonic Valve: The pulmonic valve is structurally normal. There is no indication of pulmonic valve regurgitation. Pericardium: There is no pericardial effusion noted. Aorta: The aortic root is normal. CONCLUSIONS: 1. Left ventricular systolic function is mildly decreased with a 40-45% estimated ejection fraction. 2. Entire anterior wall, basal and mid anterolateral wall, and apical lateral segment are abnormal. 3. Spectral Doppler shows an impaired relaxation pattern of left ventricular diastolic filling. 4. Moderate to severe aortic valve stenosis. 5. There is moderate to severe aortic valve cusp calcification. 6. Mild aortic valve regurgitation. QUANTITATIVE DATA SUMMARY: 2D MEASUREMENTS: Normal Ranges: LAs: 3.68 cm (2.7-4.0cm) RVIDd: 1.82 cm (0.9-3.6cm) IVSd: 1.28 cm (0.6-1.1cm) LVPWd: 1.02 cm (0.6-1.1cm) LVIDd: 4.89 cm (3.9-5.9cm) LVIDs: 3.13 cm LV Mass Index: 112.5 g/m2 LV % FS 36.1 % LA VOLUME: Normal Ranges: LA Vol A4C: 76.8 ml (22+/-6mL/m2) LA Vol A2C: 56.4 ml LA Vol BP: 66.4 ml LA Vol Index A4C: 40.7 ml/m2 LA Vol Index A2C: 29.9 ml/m2 LA Vol Index BP: 35.2 ml/m2 LA Area A4C: 22.5 cm2 LA Area A2C: 19.1 cm2 LA Major Cushing A4C: 5.6 cm LA Major Cushing A2C: 5.5 cm LA Vol A4C: 70.4 ml LA Vol A2C: 53.2 ml RA VOLUME BY A/L METHOD: Normal Ranges: RA Vol A4C: 16.3 ml (8.3-19.5ml) RA Vol Index A4C: 8.7 ml/m2 RA Area A4C: 9.4 cm2 RA Major Cushing A4C: 4.6 cm LV SYSTOLIC FUNCTION BY 2D PLANIMETRY (MOD): Normal Ranges: EF-A4C View: 41.6 % (>=55%) EF-A2C View: 35.1 % EF-Biplane: 40.5 % Global Longitudinal Strain (GLS): -13.7 % LV DIASTOLIC FUNCTION: Normal Ranges: MV Peak E: 0.74 m/s (0.7-1.2 m/s) MV Peak A: 1.04 m/s (0.42-0.7 m/s) E/A Ratio: 0.70 (1.0-2.2) MV e' 0.05 m/s (>8.0) MV lateral e' 0.06 m/s MV medial e' 0.04 m/s MV A Dur: 97.05 msec E/e' Ratio: 14.71 (<8.0) MITRAL VALVE: Normal Ranges: MV DT: 142 msec (150-240msec) AORTIC VALVE: Normal Ranges: AoV Vmax: 3.05 m/s (<=1.7m/s) AoV Peak P.2 mmHg (<20mmHg) AoV Mean P.6 mmHg (1.7-11.5mmHg) LVOT Max Celine: 1.01 m/s (<=1.1m/s) AoV VTI: 65.11 cm (18-25cm) LVOT VTI: 20.51 cm LVOT Diameter: 2.06 cm (1.8-2.4cm) AoV Area, VTI: 1.05 cm2 (2.5-5.5cm2) AoV Area,Vmax: 1.10 cm2 (2.5-4.5cm2) AoV Dimensionless Index: 0.32 (more content not included)... [facility] Work Phone: [facility] Work Phone: 36on 05-29-2023 36 No auth needed. Normal [facility] Basophil percentageOrdered B y: Jerry Parmar on 05-21-2023 Creatinine [Mass/Vol] 1.4 mg/dL 0.70-1.30 [facility] - Chemistry and C hemistry - challengeOrdered By: Jerry Parmar on 05-21-2023 GFR/1.73 sq M.predicted among non-blacks MDRD (S/P/Bld) [Vol rate/Area] 50.0000 mL/min/{1.73_m2} >60 [facility] Final Surgical Pathology Rep taz 05-15-2023 Final Surgical Pathology Report . Pathology Reports Accession: Collected Date/Time: Received Date/Time: Pathologist: [id number] 05/11/2023 12:14 EST 05/14/2023 08:05 PRAVEEN ESPINOSA MD Final Surgical Pathology Report DIAGNOSIS: COLON, 70 CM, POLYP: - TUBULAR ADENOMA CLINICAL INFORMATION: SCREENING COLONOSCOPY PROCEDURE: COLONOSCOPY _ SPECIMEN: A 70 CM POLYP, COLORECTAL GROSS DESCRIPTION: All parts labelled with patient name and [id number] Received in formalin labeled 70 cm is 1 turner-brown tissue fragment measuring 0.3 cm. TS-1 Yin Wu, Grossing Armature Balancer/ Dr. Conor Mccarthy, Pathologist Dictated by Yin Wu MICROSCOPIC DESCRIPTION: The microscopic examination is performed, except in the case of Gross Only. Electronically Signed by Pathology Report verified by [facility] PRAVEEN GRAVES Sign out Date: 05/15/2023 14:53 Performing Lab: [facility], [address] [place] [address] Pathology Dept Disclaimer If ancillary studies were utilized, the following Laboratory Developed Test (LDT) disclaimer will apply: Under CLIA requirements, [facility]ology Laboratory is qualified to perform high complexity testing. For all ancillary stains, positive and negative controls stain appropriately. Performance characteristics of immunohistochemical and chromogenic in-situ hybridization tests have been determined by [facility]. These tests are used for clinical purposes, They should not be regarded as investigational or for research. Normal [facility] ([place]) OPERATIVE PROCEDURESon 05-11 OPERATIVE PROCEDURES [facility] OPERATIVE REPORT NAME ACCOUNT SEX AGE ADMIT DISCHARGE PT MED. RECORD# NUMBER DATE DATE PREET TRIPLETT, [id number] M 77 05/11/23 Pamela Loyola [id number] ROOM: [facility] DATE OF : 1945 DICTATING PHYSICIAN: Ortiz Valdez DATE OF SURGERY: May 11, 2023 SURGEON: Ortiz Valdez MD WET END SUPERVISOR: ANESTHESIOLOGIST: Dario Brown MD ANESTHETIC: PREOPERATIVE DIAGNOSIS: POSTOPERATIVE DIAGNOSES: 1. Screening colonoscopy. 2. Colonic polyp. 3. Hemorrhoids. OPERATION PERFORMED: Colonoscopy with biopsy and polypectomy. COMPLICATIONS: ESTIMATED BLOOD LOSS: Minimal. SPECIMEN: Biopsy/polyp at 70 cm, sent to Pathology. DISPOSITION: Stable to recovery. INDICATIONS: Azar Triplett is a pleasant 77-year-old gentleman who presents for screening endoscopy. After informed consent was examined as follows. DESCRIPTION OF OPERATION: The patient was placed on a padded gurney in left lateral decubitus position with adequate padding at pressure points and timeout and verification had been done appropriately. He had been given sedation per Anesthesia with monitoring throughout. A digital examination showed external hemorrhoidal tags, normal tone, and no discrete mass. The Olympus CF-[id number] flexible endoscope was introduced through the anal verge and carefully advanced protecting the surrounding Page 1 of 2 AZAR TRIPLETT Operative Report AZAR TRIPLETT : 1945 mucosa. The scope was advanced through the rectal vault and then through the sigmoid colon, and then through the descending colon, beyond the splenic flexure, transverse colon, hepatic flexure, ascending colon toward the ileocecal junction and the landmarks were noted and documented. The prep was fair, and with copious irrigation and suctioning the view improved. The scope was carefully rotated with irrigation and suctioning, and back and forth movement. The cecum and ascending colon were carefully viewed. The scope was carefully withdrawn. At about 70 cm, there was a sessile, raised, rounded polypoid structure about 0.5 cm in width. This was removed with the cold grasp forceps standard technique, and there was good hemostasis. The scope was withdrawn through the transverse, descending, and sigmoid colon down into the rectal vault, retroflexed, rotated, straightened out, and withdrawn with decompression. There are some internal and external hemorrhoids, but there is no tear, no fissure, no fungating mass, and no angiodysplasia. No additional polyps were seen. The specimen was sent to Pathology. The patient tolerated the procedure well. The scope was withdrawn with decompression, and the patient awakened and sent to the recovery room in good condition. The case will be discussed with the patient when he is more awake and alert. Follow up for pathology will be per my office. Dictated By: Ortiz Valdez MD 05/11/23 12:36 JOB #: [id number] Transcribed By: am 05/11/23 12:47 Electronically signed by: E-Sign Dr. Ortiz Valdez MD 05/11/23 16:54 Page 2 of 2 AZAR TRIPLETT Operative Report Normal [facility] 36on 04-24-2023 36 SURGERY: CCOC FOR DR Jorge PAGE OPEN & CLOSE ALIF L4-5-S1 DATE OF SURGERY: 06/19/2023 AT 9:00 AM AUTH #: [facility] PER JULY WITH DR. PAGE'S OFFICE. [facility] MRI SPINE LUMBAR W/ + W/O CO Cel[place] 04-04-2023 MRI SPINE LUMBAR W/ + W/O CONTRAST ORIGINAL INDICATION:ORDERING SYSTEM PROVIDED HISTORY: Reason for Exam: Spinal stenosis TECHNIQUE: MRI of the lumbar spine was performed without and with the administration of intravenous contrast, according to standard protocol. COMPARISON: None FINDINGS: The axial postcontrast images are degraded by aortic pulsation artifact. ALIGNMENT: Scoliotic curvature noted. 10 mm anterolisthesis of L4 on L5. 7 mm retrolisthesis of L5 on S1. VERTEBRAE: No acute/recent fracture. Chronic mild height loss of the inferior and superior L4 and L5 vertebral bodies respectively. Moderate endplate degenerative changes involve L4-5 and L5-S1. DISCS: Widespread disc desiccation. Severe disc height loss at L4-5 and L5-S1 with moderate height loss at L2-L3. CONUS MEDULLARIS AND CAUDA EQUINA: The conus medullaris terminates at L1 and is normal. Buckling of the cauda equina is on the basis of spinal stenosis. SPINAL CANAL: Overall reduced caliber of the spinal canal on the basis of congenitally short pedicles. PARAVERTEBRAL SOFT TISSUES: Susceptibility artifact at L4-L5 secondary to postsurgical change. EVALUATION OF INDIVIDUAL LEVELS DEMONSTRATES: T12-L1: Circumferential disc bulge and facet arthrosis results in bilateral lateral recess narrowing without central canal or foraminal stenosis. L1-2: Diffuse disc bulge asymmetric to the right with a superimposed right subarticular herniation, small canal, ligamentum flavum hypertrophy and facet arthrosis causes bilateral impingement of the descending L2 nerve roots, severe central canal and moderate to severe bilateral foraminal stenosis. Disc impinges the exited right L1 nerve root. Bilateral para facetal soft tissue enhancement and a right facet joint effusion likely reflects facet synovitis more pronounced on the right side. L2-3: Diffuse disc bulge with a superimposed right subarticular and foraminal herniation ligamentum flavum hypertrophy, small canal, and facet arthrosis causes impingement of the bilateral descending L3 nerve roots, severe central canal, severe right and moderate left foraminal stenosis with impingement of the exiting and exited right L2 nerve root. L3-4: Diffuse disc bulge with a superimposed central and left subarticular herniation, congenitally small canal, ligamentum flavum hypertrophy and facet arthrosis causes impingement of the descending left L4 nerve root, severe central canal, severe left foraminal stenosis with impingement of the exiting and possibly exited left L3 nerve root. Bilateral, right greater than left para facetal enhancement and small joint effusion reflects synovitis. L4-5: Extremely limited assessment of the spinal canal on the postcontrast images secondary to artifact. Circumferential disc osteophyte bulge, disc unroofing associated with an anterolisthesis of L4 on L5, small spinal canal, ligamentum flavum hypertrophy and severe facet arthrosis causes bilateral lateral recess, severe central canal, and severe bilateral foraminal stenosis with expected impingement of the bilateral exiting L4 and descending L5 nerve roots. L5-S1: Circumferential disc osteophyte bulge with enhancing central and right central soft tissue causes deformity of the right ventral thecal sac presumably reflecting postsurgical scar. Bilateral foraminal enhancement is also likely on the basis of postsurgical scar. Soft tissue and facet arthrosis results in bilateral lateral recess, mild central canal and severe bilateral foraminal stenosis. LIMITED EVALUATION OF UPPER SACRUM AND SACROILIAC JOINTS: Degenerative changes of the bilateral sacroiliac joints. ADDITIONAL COMMENTS: 4 mm cyst located in the left posterior renal cortex. IMPRESSION: 1. Severe central canal stenosis at L1-L2 through L4-5. 2. Advanced multilevel spondylotic changes resulting in moderate to severe foraminal including moderate to severe bilateral at L1-L2, severe right moderate left L2-L3, severe left at L3-L4, severe bilateral at L4-5 and L5-S1. 3. Level by level findings as described. 4. Limited examination. Interpreted by: Chandler Yu MD Preliminary Report By: Chandler Yu MD Electronically signed By Chandler Yu MD Dictated Date: 04/04/2023 11:54:27 AM Prelim Date: 04/04/2023 1:50:10 PM Sign Date: 04/04/2023 1:50:10 PM Ordering Provider: SEFERINO HERNANDEZ [facility] ([place]) XR FOOT MINIMUM 3 VIEWS LISS Dash 11-13-2022 XR FOOT MINIMUM 3 VIEWS RIGHT ORIGINAL EXAMINATION: THREE XRAY VIEWS OF THE RIGHT FOOT11/09/2022 11:10 am FOOT 3 VIEWS RIGHT XR COMPARISON: None HISTORY: ORDERING SYSTEM PROVIDED HISTORY: Reason for Exam: Right foot pain, FINDINGS: No acute fracture, dislocation, lytic process or periosteal reaction is seen in the visualized bones and joints. No erosive type of arthritis. No periarticular soft tissue calcification. There is moderate to extensive arterial calcification in the ankle and foot. Osteoarthritis in the forefoot involving multiple IP joints and most severe in the 1st MTP joint. Posterior calcaneal spur. IMPRESSION: No acute skeletal abnormality is seen. . Forefoot osteoarthritis. Interpreted by: Mp Torres MD Preliminary Report By: Mp Torres MD Electronically signed By Mp Torres MD Dictated Date: 11/13/2022 6:45:37 AM Prelim Date: 11/13/2022 6:46:37 AM Sign Date: 11/13/2022 6:46:37 AM Ordering Provider: SEFERINO HERNANDEZ [facility] ([place]) XR KNEE THREE VIEWS LEFTon 0 11-12-2022 XR KNEE THREE VIEWS LEFT ORIGINAL EXAMINATION: THREE XRAY VIEWS OF THE LEFT KNEE 11/09/2022 11:09 am COMPARISON: None. HISTORY: ORDERING SYSTEM PROVIDED HISTORY: Reason for Exam: Left knee swelling. Fall. FINDINGS: There is no acute fracture or dislocation. Osseous mineralization is within normal limits. Moderate medial femorotibial compartment joint space narrowing. Slight lateral femorotibial compartment joint space narrowing. Preserved patellofemoral compartment joint space. Tiny marginal osteophytes. A trace volume knee joint effusion is seen. No aggressive osseous lesions are noted. Mild atherosclerosis. IMPRESSION: 1. No acute osseous abnormalities. 2. Osteoarthrosis, most advanced of the medial femorotibial compartment. Trace volume effusion. Interpreted by: Rhett Klein DO Preliminary Report By: Rhett Klein DO Electronically signed By Rhett Klein DO Dictated Date: 11/12/2022 2:53:24 PM Prelim Date: 11/12/2022 2:54:55 PM Sign Date: 11/12/2022 2:54:55 PM Ordering Provider: SEFERINO Garcia [facility] ([place]) .GFRon 10-26-2022 GFR 80 ml/min/1.73sqm [facility] ([place]) Comment on above: Result Comment: GFR Population mean for , Non- Americans Ages 20-29 = 116 mL/min/1.73 sq.m. Ages 30-39 = 107 mL/min/1.73 sq.m. Ages 40-49 = 99 mL/min/1.73 sq.m. Ages 50-59 = 93 mL/min/1.73 sq.m. Ages 60-69 = 85 mL/min/1.73 sq.m. Ages 70+ = 75 mL/min/1.73 sq.m. Chronic Kidney Disease: Less than 60 mL/min/1.73 square meters End Stage Renal Disease: Less than 15 mL/min/1.73 square meters Performed By: #### L IPID, GFR, A1C, CMP #### [address] [address] GFR Non- 66 ml/min/1.73sqm Normal [facility] ([place]) Comment on above: Result Comment: GFR Population mean for , Non- Americans Ages 20-29 = 116 mL/min/1.73 sq.m. Ages 30-39 = 107 mL/min/1.73 sq.m. Ages 40-49 = 99 mL/min/1.73 sq.m. Ages 50-59 = 93 mL/min/1.73 sq.m. Ages 60-69 = 85 mL/min/1.73 sq.m. Ages 70+ = 75 mL/min/1.73 sq.m. Chronic Kidney Disease: Less than 60 mL/min/1.73 square meters End Stage Renal Disease: Less than 15 mL/min/1.73 square meters Performed By: #### L IPID, GFR, A1C, CMP #### [address] [address] A1Con 10-26-2022 HbA1c (Bld) [Mass fraction] 7.3 % High 4.3-6.4 [facility] ([place]) Comment on above: Performed By: #### L IPID, GFR, A1C, CMP #### [address] [address] CMPon 10-26-2022 Albumin Level 3.7 G/dL Normal 3.4-4.8 [facility] ([place]) Comment on above: Performed By: #### L IPID, GFR, A1C, CMP #### [address] [address] Albumin/Globulin [Mass ratio] 1.3 {ratio} Normal 1.1-2.5 [facility] ([place]) Comment on above: Performed By: #### L IPID, GFR, A1C, CMP #### [address] [address] ALP [Catalytic activity/Vol] 48 U/L Normal 40-135 [facility] ([place]) Comment on above: Performed By: #### L IPID, GFR, A1C, CMP #### [address] [address] ALT [Catalytic activity/Vol] 34 U/L Normal 16-63 [facility] ([place]) Comment on above: Performed By: #### L IPID, GFR, A1C, CMP #### [address] [address] AST [Catalytic activity/Vol] 27 U/L Normal 10-40 [facility] ([place]) Comment on above: Performed By: #### L IPID, GFR, A1C, CMP #### [address] [address] Bili Total 0.5 mg/dL Normal 0.2-1.0 [facility] [place] ([place]) Comment on above: Result Comment: Use of this assay is not recommended for patients undergoing treatment with eltrombopag due to the potential for falsely elevated results. Performed By: #### L IPID, GFR, A1C, CMP #### [address] [address] BUN/Creatinine Ratio 15 ratio Normal 7-27 [facility] ([place]) Comment on above: Performed By: #### L IPID, GFR, A1C, CMP #### [address] [address] Calcium [Mass/Vol] 8.9 mg/dL Normal 8.4-10.2 [facility] ([place]) Comment on above: Performed By: #### L IPID, GFR, A1C, CMP #### [address] [address] Chloride [Moles/Vol] 102 mmol/L Normal 98-107 [facility] ([place]) Comment on above: Performed By: #### L IPID, GFR, A1C, CMP #### [address] [address] CO2 [Moles/Vol] 29 mmol/L Normal 23-31 [facility] [place] ([place]) Comment on above: Performed By: #### L IPID, GFR, A1C, CMP #### [address] [address] Creatinine [Mass/Vol] 1.08 mg/dL Normal 0.70-1.30 [facility] ([place]) Comment on above: Performed By: #### L IPID, GFR, A1C, CMP #### [address] [address] Electrolyte Balance 9.0 mEq/L Normal 4.0-15.0 [facility] ([place]) Comment on above: Performed By: #### L IPID, GFR, A1C, CMP #### [address] [address] Globulin 2.8 G/dL Normal [facility] [place] ([place]) Comment on above: Performed By: #### L IPID, GFR, A1C, CMP #### [address] [address] Glucose [Mass/Vol] 180 mg/dL High 83-110 [facility] ([place]) Comment on above: Performed By: #### L IPID, GFR, A1C, CMP #### [address] [address] Potassium [Moles/Vol] 4.0 mmol/L Normal 3.5-5.1 [facility] ([place]) Comment on above: Performed By: #### L IPID, GFR, A1C, CMP #### [address] [address] Sodium [Moles/Vol] 140 mmol/L Normal 136-145 [facility] ([place]) Comment on above: Performed By: #### L IPID, GFR, A1C, CMP #### [facility] [address] [place], [place] [address] Total Protein 6.5 G/dL Normal 6.4-8.2 [facility] [place] ([place]) Comment on above: Performed By: #### L IPID, GFR, A1C, CMP #### [facility] [address] [place], [place] [address] Urea nitrogen [Mass/Vol] 16 mg/dL Normal 7-18 [facility] [place] ([place]) Comment on above: Performed By: #### L IPID, GFR, A1C, CMP #### [address] [place], [place] [address] LABORATORYOrdered By: SYSTEM SYSTEM on 10-26-2022 Albumin BCP dye [Mass/Vol] 3.7 G/dL Invalid Interpretation Code 3.4 - 4.8 G/dL AO ADM SS Albumin/Globulin [Mass ratio] 1.3 {ratio} Invalid Interpretation Code 1.1 - 2.5 ratio AO ADM SS ALP [Catalytic activity/Vol] 48 U/L Invalid Interpretation Code 40 - 135 U/L AO ADM SS ALT With P-5'-P [Catalytic activity/Vol] 34 U/L Invalid Interpretation Code 16 - 63 U/L AO ADM SS AST With P-5'-P [Catalytic activity/Vol] 27 U/L Invalid Interpretation Code 10 - 40 U/L AO ADM SS Bilirubin [Mass/Vol] 0.5 mg/dL Invalid Interpretation Code 0.2 - 1.0 mg/dL AO ADM SS Calcium [Mass/Vol] 8.9 mg/dL Invalid Interpretation Code 8.4 - 10.2 mg/dL AO ADM SS Chloride [Moles/Vol] 102 mmol/L Invalid Interpretation Code 98 - 107 mmol/L AO ADM SS CO2 [Moles/Vol] 29 mmol/L Invalid Interpretation Code 23 - 31 mmol/L AO ADM SS Creatinine [Mass/Vol] 1.08 mg/dL Invalid Interpretation Code 0.70 - 1.30 mg/dL AO ADM SS Electrolyte Balance 9.0 mEq/L Invalid Interpretation Code 4.0 - 15.0 mEq/L AO ADM SS GFR/1.73 sq M.predicted among blacks MDRD (S/P/Bld) [Vol rate/Area] 80 ml/min/1.73sqm Invalid Interpretation Code AO Chemistry S GFR/1.73 sq M.predicted among non-blacks MDRD (S/P/Bld) [Vol rate/Area] 66 ml/min/1.73sqm Invalid Interpretation Code AO Chemistry S Globulin 2.8 G/dL Invalid Interpretation Code AO ADM SS Glucose [Mass/Vol] 180 mg/dL Invalid Interpretation Code 83 - 110 mg/dL AO ADM SS HbA1c (Bld) [Mass fraction] 7.3 % Invalid Interpretation Code 4.3 - 6.4 % AO ADM SS Potassium [Moles/Vol] 4.0 mmol/L Invalid Interpretation Code 3.5 - 5.1 mmol/L AO ADM SS Protein [Mass/Vol] 6.5 G/dL Invalid Interpretation Code 6.4 - 8.2 G/dL AO ADM SS Sodium [Moles/Vol] 140 mmol/L Invalid Interpretation Code 136 - 145 mmol/L AO ADM SS Urea nitrogen [Mass/Vol] 16 mg/dL Invalid Interpretation Code 7 - 18 mg/dL AO ADM SS Urea nitrogen/Creatinine [Mass ratio] 15 ratio Invalid Interpretation Code 7 - 27 ratio AO ADM SS LABORATORYOrdered By: Vilma Huff on 10-26-2022 Cholesterol [Mass/Vol] 207 mg/dL Invalid Interpretation Code 0 - 200 mg/dL AO ADM SS Cholesterol in HDL [Mass/Vol] 32 mg/dL Invalid Interpretation Code 40 - 60 mg/dL AO ADM SS Cholesterol in LDL [Mass/Vol] 142 mg/dL Invalid Interpretation Code 0 - 130 mg/dL AO ADM SS Triglyceride [Mass/Vol] 166 mg/dL Invalid Interpretation Code 0 - 150 mg/dL AO ADM SS LIPIDon 10-26-2022 Cholesterol [Mass/Vol] 207 mg/dL High 0-200 [facility] [place] ([place]) Comment on above: Result Comment: Chol esterol Reference Interval: Less than 200 Desirable 200-239 Borderline high risk 240 and above High risk Performed By: #### L IPID, GFR, A1C, CMP #### [address] [place], [place] [address] Cholesterol in HDL [Mass/Vol] 32 mg/dL Low 40-60 [facility] [place] ([place]) Comment on above: Performed By: #### L IPID, GFR, A1C, CMP #### [facility] [address] [place], [place] [address] Cholesterol in LDL [Mass/Vol] 142 mg/dL High 0-130 [facility] [place] ([place]) Comment on above: Performed By: #### L IPID, GFR, A1C, CMP #### [address] [place] [address] [place], [place] [address] Triglyceride [Mass/Vol] 166 mg/dL High 0-150 [facility] [place] ([place]) Comment on above: Result Comment: Trig lyceride Reference Interval: Less than 150 Normal 150-199 Borderline high risk 200-499 High risk 500 or higher Very high risk Performed By: #### L IPID, GFR, A1C, CMP #### [address] [place], [place] [address] LABORATORYOrdered By: Vilma Huff on 08-14-2021 Basophil, Absolute 0.10 103/mcL Invalid Interpretation Code 0.00 - 0.19 10^3/mcL AO Auto Heme SS Basophils/100 WBC (Bld) 0.9 % Invalid Interpretation Code 0.0 - 2.5 % AO Auto Heme SS Calcium [Mass/Vol] 9.3 mg/dL Invalid Interpretation Code 8.4 - 10.2 mg/dL AO ADM SS Chloride [Moles/Vol] 105 mmol/L Invalid Interpretation Code 98 - 107 mmol/L AO ADM SS CO2 [Moles/Vol] 26 mmol/L Invalid Interpretation Code 23 - 31 mmol/L AO ADM SS Creatinine [Mass/Vol] 1.47 mg/dL Invalid Interpretation Code 0.70 - 1.30 mg/dL AO ADM SS Electrolyte Balance 8.0 mEq/L Invalid Interpretation Code 4.0 - 15.0 mEq/L AO ADM SS Eosinophil, Absolute 0.10 103/mcL Invalid Interpretation Code 0.00 - 0.40 10^3/mcL AO Auto Heme SS Eosinophils/100 WBC (Bld) 1.9 % Invalid Interpretation Code 0.0 - 7.0 % AO Auto Heme SS Erythrocyte distribution width (RBC) [Ratio] 13.4 % Invalid Interpretation Code 11.5 - 14.5 % AO Auto Heme SS Glucose [Mass/Vol] 196 mg/dL Invalid Interpretation Code 83 - 110 mg/dL AO ADM SS Hematocrit (Bld) [Volume fraction] 33.7 % Invalid Interpretation Code 42.0 - 52.0 % AO Auto Heme SS Hemoglobin (Bld) [Mass/Vol] 11.6 G/dL Invalid Interpretation Code 14.0 - 18.0 G/dL AO Auto Heme SS Lymphocyte, Absolute 2.00 103/mcL Invalid Interpretation Code 0.77 - 3.85 10^3/mcL AO Auto Heme SS Lymphocytes/100 WBC (Bld) 28.2 % Invalid Interpretation Code 10.0 - 50.0 % AO Auto Heme SS MCH (RBC) [Entitic mass] 29.7 pg Invalid Interpretation Code 27.0 - 31.2 pg AO Auto Heme SS MCHC (RBC) [Mass/Vol] 34.5 G/dL Invalid Interpretation Code 31.8 - 35.4 G/dL AO Auto Heme SS MCV (RBC) [Entitic vol] 86.0 fL Invalid Interpretation Code 80.0 - 94.0 fL AO Auto Heme SS Monocyte, Absolute 0.80 103/mcL Invalid Interpretation Code 0.15 - 1.00 10^3/mcL AO Auto Heme SS Monocytes/100 WBC (Bld) 10.7 % Invalid Interpretation Code 1.7 - 13.0 % AO Auto Heme SS Neutrophil, Absolute 4.20 103/mcL Invalid Interpretation Code 2.85 - 6.16 10^3/mcL AO Auto Heme SS Neutrophils/100 WBC (Bld) 58.3 % Invalid Interpretation Code 37.0 - 80.0 % AO Auto Heme SS Platelet mean volume (Bld) [Entitic vol] 8.6 fL Invalid Interpretation Code 7.4 - 10.4 fL AO Auto Heme SS Platelets (Bld) [#/Vol] 246 103/mcL Invalid Interpretation Code 130 - 400 10^3/mcL AO Auto Heme SS Potassium [Moles/Vol] 4.2 mmol/L Invalid Interpretation Code 3.5 - 5.1 mmol/L AO ADM SS RBC (Bld) [#/Vol] 3.92 106/mcL Invalid Interpretation Code 4.04 - 6.13 10^6/mcL AO Auto Heme SS Sodium [Moles/Vol] 139 mmol/L Invalid Interpretation Code 136 - 145 mmol/L AO ADM SS Troponin I.cardiac DL <= 0.01 ng/mL [Mass/Vol] 9.3 ng/L Invalid Interpretation Code 0.0 - 76.2 ng/L AO ADM SS Urea nitrogen [Mass/Vol] 30 mg/dL Invalid Interpretation Code 7 - 18 mg/dL AO ADM SS Urea nitrogen/Creatinine [Mass ratio] 20 ratio Invalid Interpretation Code 7 - 27 ratio AO ADM SS WBC (Bld) [#/Vol] 7.20 103/mcL Invalid Interpretation Code 4.60 - 10.80 10^3/mcL AO Auto Heme SS LABORATORYOrdered By: SYSTEM SYSTEM on 08-14-2021 GFR 56 ml/min/1.73sqm Invalid Interpretation Code AO Chemistry S GFR Non- 46 ml/min/1.73sqm Invalid Interpretation Code AO Chemistry S LABORATORYOrdered By: Kemar Fabian on 04-07-2021 Albumin BCP dye [Mass/Vol] 4.1 G/dL Invalid Interpretation Code 3.4 - 4.8 G/dL AO ADM SS Albumin/Globulin [Mass ratio] 1.3 {ratio} Invalid Interpretation Code 1.1 - 2.5 ratio AO ADM SS ALP [Catalytic activity/Vol] 57 U/L Invalid Interpretation Code 40 - 135 U/L AO ADM SS ALT With P-5'-P [Catalytic activity/Vol] 37 U/L Invalid Interpretation Code 16 - 63 U/L AO ADM SS AST With P-5'-P [Catalytic activity/Vol] 29 U/L Invalid Interpretation Code 10 - 40 U/L AO ADM SS Bilirubin [Mass/Vol] 0.5 mg/dL Invalid Interpretation Code 0.2 - 1.0 mg/dL AO ADM SS Calcium [Mass/Vol] 9.5 mg/dL Invalid Interpretation Code 8.4 - 10.2 mg/dL AO ADM SS Chloride [Moles/Vol] 103 mmol/L Invalid Interpretation Code 98 - 107 mmol/L AO ADM SS Cholesterol [Mass/Vol] 160 mg/dL Invalid Interpretation Code 0 - 200 mg/dL AO ADM SS Cholesterol in HDL [Mass/Vol] 39 mg/dL Invalid Interpretation Code 40 - 60 mg/dL AO ADM SS Cholesterol in LDL [Mass/Vol] 110 mg/dL Invalid Interpretation Code 0 - 130 mg/dL AO ADM SS CO2 [Moles/Vol] 27 mmol/L Invalid Interpretation Code 23 - 31 mmol/L AO ADM SS Creatinine [Mass/Vol] 1.20 mg/dL Invalid Interpretation Code 0.70 - 1.30 mg/dL AO ADM SS Electrolyte Balance 10.0 mEq/L Invalid Interpretation Code AO ADM SS Globulin 3.1 G/dL Invalid Interpretation Code AO ADM SS Glucose [Mass/Vol] 130 mg/dL Invalid Interpretation Code 83 - 110 mg/dL AO ADM SS Potassium [Moles/Vol] 5.2 mmol/L Invalid Interpretation Code 3.5 - 5.1 mmol/L AO ADM SS Protein [Mass/Vol] 7.2 G/dL Invalid Interpretation Code 6.4 - 8.2 G/dL AO ADM SS Sodium [Moles/Vol] 140 mmol/L Invalid Interpretation Code 136 - 145 mmol/L AO ADM SS Triglyceride [Mass/Vol] 53 mg/dL Invalid Interpretation Code 0 - 150 mg/dL AO ADM SS Urea nitrogen [Mass/Vol] 25 mg/dL Invalid Interpretation Code 7 - 18 mg/dL AO ADM SS Urea nitrogen/Creatinine [Mass ratio] 21 ratio Invalid Interpretation Code 7 - 27 ratio AO ADM SS LABORATORYOrdered By: Arabella Farias on 04-07-2021 Basophil, Absolute 0.00 103/mcL Invalid Interpretation Code 0.00 - 0.19 10^3/mcL AO Auto Heme SS Basophils/100 WBC (Bld) 0.5 % Invalid Interpretation Code 0.0 - 2.5 % AO Auto Heme SS Eosinophil, Absolute 0.10 103/mcL Invalid Interpretation Code 0.00 - 0.40 10^3/mcL AO Auto Heme SS Eosinophils/100 WBC (Bld) 1.2 % Invalid Interpretation Code 0.0 - 7.0 % AO Auto Heme SS Erythrocyte distribution width (RBC) [Ratio] 12.9 % Invalid Interpretation Code 11.5 - 14.5 % AO Auto Heme SS Hematocrit (Bld) [Volume fraction] 40.6 % Invalid Interpretation Code 42.0 - 52.0 % AO Auto Heme SS Hemoglobin (Bld) [Mass/Vol] 13.5 G/dL Invalid Interpretation Code 14.0 - 18.0 G/dL AO Auto Heme SS Lymphocyte, Absolute 2.00 103/mcL Invalid Interpretation Code 0.77 - 3.85 10^3/mcL AO Auto Heme SS Lymphocytes/100 WBC (Bld) 23.8 % Invalid Interpretation Code 10.0 - 50.0 % AO Auto Heme SS MCH (RBC) [Entitic mass] 28.9 pg Invalid Interpretation Code 27.0 - 31.2 pg AO Auto Heme SS MCHC (RBC) [Mass/Vol] 33.3 G/dL Invalid Interpretation Code 31.8 - 35.4 G/dL AO Auto Heme SS MCV (RBC) [Entitic vol] 86.8 fL Invalid Interpretation Code 80.0 - 94.0 fL AO Auto Heme SS Monocyte, Absolute 0.70 103/mcL Invalid Interpretation Code 0.15 - 1.00 10^3/mcL AO Auto Heme SS Monocytes/100 WBC (Bld) 8.7 % Invalid Interpretation Code 1.7 - 13.0 % AO Auto Heme SS Neutrophil, Absolute 5.50 103/mcL Invalid Interpretation Code 2.85 - 6.16 10^3/mcL AO Auto Heme SS Neutrophils/100 WBC (Bld) 65.8 % Invalid Interpretation Code 37.0 - 80.0 % AO Auto Heme SS Platelet mean volume (Bld) [Entitic vol] 8.9 fL Invalid Interpretation Code 7.4 - 10.4 fL AO Auto Heme SS Platelets (Bld) [#/Vol] 207 103/mcL Invalid Interpretation Code 130 - 400 10^3/mcL AO Auto Heme SS RBC (Bld) [#/Vol] 4.68 106/mcL Invalid Interpretation Code 4.04 - 6.13 10^6/mcL AO Auto Heme SS WBC (Bld) [#/Vol] 8.40 103/mcL Invalid Interpretation Code 4.60 - 10.80 10^3/mcL AO Auto Heme SS LABORATORYOrdered By: SYSTEM SYSTEM on 04-07-2021 GFR 71 ml/min/1.73sqm Invalid Interpretation Code AO Chemistry S GFR Non- 59 ml/min/1.73sqm Invalid Interpretation Code AO Chemistry S OBSOLETEon 12-03-2020 OBSOLETE Refill (FAMPWS) AZAR TRIPLETT ([id number]) 1945 M Date Time Provider Department 12/03/20 ROBERT WALKER III During your visit today, we recorded the following information about you: Mayte Martinez Pss 12/03/2020 4:21 PM Addendum Patient has been identified by name and date of : Yes Pending Prescriptions Disp Refills METFORMIN 500 MG TABLET 90 tablet 3 Sig: Take 1 tablet by mouth daily with dinner. HERMILO: No LISINOPRIL 20 MG TABLET 90 tablet 3 Sig: Take 1 tablet by mouth once daily. HERMILO: No ANKIT-02/12/20 with PCP Labs-02/05/20 NOV-none RX INSTRUCTIONS: Patient aware RX will be sent to pharmacy. No need to notify patient. Mayte Kendrick APRN.JAH SEAMAN 12/06/2020 4:40 PM Signed The following approved medication requests have been transmitted electronically. Pending Prescriptions Disp Refills METFORMIN 500 MG TABLET 90 tablet 3 Sig: Take 1 tablet by mouth daily with dinner. HERMILO: No LISINOPRIL 20 MG TABLET 90 tablet 3 Sig: Take 1 tablet by mouth once daily. HERMILO: No Conor Kendrick APRN.JAH SEAMAN Allergies As of Date: 12/03/2020 (No Known Allergies) Date Reviewed: 02/12/2020 [facility]ed [facility]: [facility] LAUREN Jefferson - Fully Assessed Reason for Visit: Refill Request [94] Visit Diagnoses:Controlled type 2 diabetes mellitus without complication, without long-term current use of insulin (HCC) [E11.9] BENIGN HYPERTENSION [I10] Order(s):metFORMIN (GLUCOPHAGE) 500 mg tabletTake 1 tablet by mouth daily with dinner.Disp: 90 tabletRfl: 3 lisinopril (ZESTRIL, PRINIVIL) 20 mg tabletTake 1 tablet by mouth once daily.Disp: 90 tabletRfl: 3 Prescriptions as of 12/06/2020 - metFORMIN (GLUCOPHAGE) 500 mg tablet Take [...] twice daily. Problem List As Of Date 12/03/2020 Noted Resolved Nontraumatic rupture of other tendons [...] diabetes mellitus without com*07/17/2017 COVID-19 [U07.1] 02/24/2020 Prescriptions ordered this encounter Disp Refills Start End METFORMIN 500 MG TABLET 90 t* 3 12/06/2020 Route: ORAL Sig: Take 1 tablet by mouth daily with dinner. LISINOPRIL 20 MG TABLET 90 t* 3 12/06/2020 Route: ORAL Sig: Take 1 tablet by mouth once daily. Medications Discontinued During This Encounter Prescriptions - metFORMIN (GLUCOPHAGE) 500 mg tablet (Discontinued) Take 1 tablet by mouth daily with dinner. - lisinopril (ZESTRIL, PRINIVIL) 20 mg tablet (Discontinued) Take 1 tablet by mouth once daily. Encounter Status:Closed by CONOR KENDRICK on 12/06/20 [facility] OBSOLETEon 09-06-2020 OBSOLETE Refill (FAMPWS) AZAR TRIPLETT ([id number]) 1945 M Date Time Provider Department 09/06/20 ROBERT WALKER III During your visit today, we recorded the following information about you: Sofiya Quinn [facility] 09/06/2020 10:27 AM Signed Patient has been identified by name and date of : Yes Pending Prescriptions Disp Refills HYDROCHLOROTHIAZIDE 12.5 MG CAPSULE 90 capsule 1 Sig: Take 1 capsule by mouth once daily. HERMILO: No RX INSTRUCTIONS: Patient aware RX will be sent to pharmacy. No need to notify patient. Sofiya Quinn [facility] Riri Shaw Ma 09/06/2020 11:15 AM Signed [facility] 02/12/2020 NOV 02/14/2021 Riri Kendrick APRN.JAH SEAMAN 09/06/2020 11:59 AM Signed The following approved medication requests have been transmitted electronically. Pending Prescriptions Disp Refills HYDROCHLOROTHIAZIDE 12.5 MG CAPSULE 90 capsule 1 Sig: Take 1 capsule by mouth once daily. HERMILO: No Conor Kendrick APRN.JAH SEAMAN Allergies As of Date: 09/06/2020 (No Known Allergies) Date Reviewed: 02/12/2020 Reviewed by: Terri ([facility]) LAUREN Jefferson - Fully Assessed Reason for Visit: Refill Request [94] Visit Diagnosis:BENIGN HYPERTENSION [I10] Order(s):hydroCHLOROth iazide 12.5 mg capsuleTake 1 capsule by mouth once daily.Disp: 90 capsuleRfl: 1 Prescriptions as of 09/06/2020 Sig: HYDROCHLOROTHIAZIDE 12.5 MG C* Take 1 [...] twice * Problem List As Of Date 09/06/2020 Noted Resolved Nontraumatic rupture of other tendons [...] diabetes mellitus without com*07/17/2017 COVID-19 [U07.1] 02/24/2020 Prescriptions ordered this encounter Disp Refills Start End HYDROCHLOROTHIAZIDE 12.5 MG CAPSULE 90 c* 1 09/06/2020 Route: ORAL Sig: Take 1 capsule by mouth once daily. Medications Discontinued During This Encounter Prescriptions - Hydrochlorothiazide 12.5 mg capsule (Discontinued) Take 1 capsule by mouth once daily. Encounter Status:Closed by CONOR KENDRICK on 09/06/20 Normal [facility] Vital Signs Date Time Vital Sign Value Performing Clinician Facility 08-06-2024 14:48-0400 Body mass index (BMI) [Ratio] 29.62 kg/m2 Luis Donahue MD Work Phone: [facility] 08-06-2024 14:48-0400 Body temperature 98.01 [degF] Luis Donahue MD Work Phone: [facility] 08-06-2024 14:48-0400 Body weight 80.74 kg Luis Donahue MD Work Phone: [facility] 08-06-2024 14:48-0400 Diastolic blood pressure 85 mm[Hg] Luis Donahue MD Work Phone: [facility] 08-06-2024 14:48-0400 Heart rate 67 /min Luis Donahue MD Work Phone: 4(258)987-[address] [place] [address] 08-06-2024 14:48-0400 Systolic blood pressure 169 mm[Hg] Luis Donahue MD Work Phone: 6(849)747-531157 [place] [address] 03-06-2024 13:23-0500 Body height 165.1 cm Luis Donahue MD Work Phone: 0(076)244-[address]857 [place] [address] 03-06-2024 13:23-0500 Body mass index (BMI) [Ratio] 28.96 kg/m2 Luis Donahue MD Work Phone: 0(357)400-755457 [place] [address] 03-06-2024 13:23-0500 Body weight 78.93 kg Luis Donahue MD Work Phone: 1(450)268-253957 [place] [address] 03-06-2024 13:23-0500 Diastolic blood pressure 90 mm[Hg] Luis Donahue MD Work Phone: 2(891)578-339557 [place] [address] 03-06-2024 13:23-0500 Heart rate 82 /min Luis Donahue MD Work Phone: 5(163)492-610657 [place] [address] 03-06-2024 13:23-0500 Systolic blood pressure 165 mm[Hg] Luis Donahue MD Work Phone: 6(234)193-808757 [place] [address] 09-04-2023 10:54-0400 Body height 165.1 cm Luis Donahue MD Work Phone: 4(228)416-865757 [place] [address] 09-04-2023 10:54-0400 Body mass index (BMI) [Ratio] 30.87 kg/m2 Luis Donahue MD Work Phone: 0(440)430-917057 [place] [address] 09-04-2023 10:54-0400 Body temperature 98.2 [degF] Luis Donahue MD Work Phone: 5(448)646-518357 [place] [address] 09-04-2023 10:54-0400 Body weight 84.14 kg Luis Donahue MD Work Phone: 5(576)896-831557 [place] [address] 09-04-2023 10:54-0400 Diastolic blood pressure 81 mm[Hg] Luis Donahue MD Work Phone: [facility] 09-04-2023 10:54-0400 Heart rate 68 /min Luis Donahue MD Work Phone: [facility] 09-04-2023 10:54-0400 Systolic blood pressure 166 mm[Hg] Luis Donahue MD Work Phone: [facility] 08-17-2023 10:22-0400 Body height 167.[address] 08-17-2023 10:22-0400 Body mass index (BMI) [Ratio] 28.41 kg/m2 [address] 08-17-2023 10:22-0400 Body weight 79.[address] 07-07-2023 08:43-0500 Diastolic Blood Pressure Non-Invasive 80 mm[Hg] DR ARMEN SWEENEY MD [address] [place] [address] 07-07-2023 08:43-0500 Heart rate 83 /min DR ARMEN SWEENEY MD [address] 07-07-2023 08:43-0500 Respiratory rate 16 /min DR ARMEN SWEENEY MD [facility] 07-07-2023 08:43-0500 Systolic Blood Pressure Non-Invasive 142 mm[Hg] DR ARMEN SWEENEY MD [facility] 07-07-2023 05:56-0500 Heart rate 74 /min DR ARMEN SWEENEY MD [address] 07-07-2023 05:56-0500 Respiratory rate 16 /min DR ARMEN SWEENEY MD [facility] 07-07-2023 03:35-0500 Blood Pressure Cuff Size DR ARMEN SWEENEY MD [facility] 07-07-2023 03:35-[address] ARMEN SWEENEY MD [address] 07-07-2023 03:35-[address] ARMEN SWEENEY MD [address] [place] [address] 07-07-2023 03:35-0500 Body temperature 97.88 [degF] DR ARMEN SWEENEY MD [address] [place] [address] 07-07-2023 03:35-0500 Diastolic Blood Pressure Non-Invasive 75 mm[Hg] DR ARMEN SWEENEY MD [address] [place] [address] 07-07-2023 03:35-0500 Heart rate 79 /min DR ARMEN SWEENEY MD [address] [place] [address] 07-07-2023 03:35-0500 Reason For Taking VItal Signs DR ARMEN SWEENEY MD [address] [place] [address] 07-07-2023 03:35-0500 Respiratory rate 16 /min DR ARMEN SWEENEY MD [address] [place] [address] 07-07-2023 03:35-0500 Systolic Blood Pressure Non-Invasive 156 mm[Hg] DR ARMEN SWEENEY MD [address] [place] [address] 07-07-2023 02:40-0500 Diastolic Blood Pressure Non-Invasive 78 mm[Hg] DR ARMEN SWEENEY MD [address] [place] [address] 07-07-2023 02:40-0500 Systolic Blood Pressure Non-Invasive 145 mm[Hg] DR ARMEN SWEENEY MD [address] [place] [address] 07-06-2023 22:52-05[address] Blood Pressure Cuff Size DR ARMEN SWEENEY MD [address] [place] [address] 07-06-2023 22:52-[address] ARMEN SWEENEY MD [address] [place] [address] 07-06-2023 22:52-[address] ARMEN SWEENEY MD [address] 07-06-2023 22:52-0500 Body temperature 97.7 [degF] DR ARMEN SWEENEY MD [address] [place] [address] 07-06-2023 22:52-0500 Reason For Taking VItal Signs DR ARMEN SWEENEY MD [address] [place] [address] 07-06-2023 22:35-[address] ARMEN SWEENEY MD [address] [place] [address] 07-06-2023 22:35-0500 Reason For Taking VItal Signs DR ARMEN SWEENEY MD [address] [place] [address] 07-06-2023 19:35-0500 Blood Pressure Cuff Size DR ARMEN SWEENEY MD [address] [place] [address] 07-06-2023 19:35-[address] ARMEN SWEENEY MD [address] [place] [address] 07-06-2023 14:37-0500 Body temperature 97.7 [degF] DR ARMEN SWEENEY MD [address] [place] [address] 07-06-2023 01:01-0500 Body height 165.[address] ARMEN SWEENEY MD [address] [place] [address] 07-06-2023 01:01-0500 Body weight 77.[address] ARMEN SWEENEY MD [address] [place] [address] 07-06-2023 01:01-0500 Body weight 28.43 kg/m2 DR ARMEN SWEENEY MD [address] [place] [address] 07-05-2023 22:40-0500 Mean blood pressure 111 mm[Hg] DR ARMEN SWEENEY MD [address] [place] [address] 07-05-2023 15:44-0500 Mean blood pressure 109 mm[Hg] DR ARMEN SWEENEY MD [facility] 07-05-2023 14:55-0500 Mean blood pressure 108 mm[Hg] DR ARMEN SWEENEY MD [facility] 07-03-2023 09:32-0500 Heart rate 78 /min DR ARMEN SWEENEY MD [facility] 07-03-2023 09:32-0500 Heart rate 87 /min DR ARMEN SWEENEY MD [facility] 07-02-2023 18:23-0500 Heart rate 91 /min DR ARMEN SWEENEY MD [facility] 07-02-2023 12:39-0500 Body weight 77.[address] ARMEN SWEENEY MD [facility] 06-23-2023 08:31-0500 Body temperature 98.8 [degF] Guerda Alvarez MD Work Phone: [facility] 06-23-2023 08:31-0500 Diastolic blood pressure 78 mm[Hg] Guerda Alvarez MD Work Phone: [facility] 06-23-2023 08:31-0500 Heart rate 99 /min Guerda Alvarez MD Work Phone: [facility] 06-23-2023 08:31-0500 Respiratory rate 16 /min Guerda Alvarez MD Work Phone: [facility] 06-23-2023 08:31-0500 SaO2% (BldA) [Mass fraction] 97 % Guerda Alvarez MD Work Phone: [facility] 06-23-2023 08:31-0500 Systolic blood pressure 115 mm[Hg] Guerda Alvarez MD Work Phone: [facility] 06-22-2023 09:40-0500 Body height 165.1 cm Guerda Alvarez MD Work Phone: [facility] 06-22-2023 09:40-0500 Body mass index (BMI) [Ratio] 30.08 kg/m2 Guerda Alvarez MD Work Phone: [facility] 06-22-2023 09:40-0500 Body weight 82 kg Guerda Alvarez MD Work Phone: [facility] 06-14-2023 09:33-0500 Body height 165.1 cm Luis Donahue MD Work Phone: [facility] 06-14-2023 09:33-0500 Body mass index (BMI) [Ratio] 29.84 kg/m2 Luis Donahue MD Work Phone: 1(662)[phone] [place] [address] 06-14-2023 09:33-0500 Body temperature 97.5 [degF] Luis Donahue MD Work Phone: 1(748)[phone] [place] [address] 06-14-2023 09:33-0500 Body weight 81.33 kg Luis Donahue MD Work Phone: 2(418)[phone] [place] [address] 06-14-2023 09:33-0500 Diastolic blood pressure 95 mm[Hg] Luis Donahue MD Work Phone: 9(244)[phone] [place] [address] 06-14-2023 09:33-0500 Heart rate 83 /min Luis Donahue MD Work Phone: 8(403)[phone] [place] [address] 06-14-2023 09:33-0500 Systolic blood pressure 178 mm[Hg] Luis Donahue MD Work Phone: 7(698)[phone] [place] [address] 05-02-2023 13:22-0500 Body height 165.[address] Jerry Parmar Work Phone: [facility] 05-02-2023 13:22-0500 Body mass index (BMI) [Ratio] 29.7 kg/m2 Dr. Jerry Parmar Work Phone: [facility] 05-02-2023 13:22-0500 Body weight 81.[address] Jerry Parmar Work Phone: [facility] 08-14-2021 03:00-0400 Diastolic blood pressure 48 mm[Hg] DR JAYDEN CHOWDARY DO [facility] 08-14-2021 03:00-0400 Mean blood pressure 77 mm[Hg] DR JAYDEN CHOWDARY DO [facility] 08-14-2021 03:00-0400 Systolic blood pressure 136 mm[Hg] DR JAYDEN CHOWDARY DO [facility] 08-14-2021 02:11-0400 Diastolic blood pressure 66 mm[Hg] DR JAYDEN CHOWDARY DO [facility] 08-14-2021 02:11-0400 Heart rate 100 /min DR JAYDEN CHOWDARY DO [facility] 08-14-2021 02:11-0400 Mean blood pressure 95 mm[Hg] DR JAYDEN CHOWDARY DO [facility] 08-14-2021 02:11-0400 Respiratory rate 14 /min DR JAYDEN CHOWDARY DO [facility] 08-14-2021 02:11-0400 Systolic blood pressure 153 mm[Hg] DR JAYDEN CHOWDARY DO [facility] 08-14-2021 01:15-0400 Body temperature 97.7 [degF] DR JAYDEN CHOWDARY DO [facility] 08-14-2021 01:15-0400 Diastolic blood pressure 76 mm[Hg] DR JAYDEN CHOWDARY DO [facility] 08-14-2021 01:15-0400 Heart rate 98 /min DR JAYDEN CHOWDARY DO [facility] 08-14-2021 01:15-0400 Mean blood pressure 96 mm[Hg] DR JAYDEN CHOWDARY DO [facility] 08-14-2021 01:15-0400 Respiratory rate 10 /min DR JAYDEN CHOWDARY DO [facility] 08-14-2021 01:15-0400 Systolic blood pressure 136 mm[Hg] DR JAYDEN CHOWDARY DO [facility] Encounters Encounter Date Encounter Type Care Provider Facility Start: 08-06-2024 End: 08-06-2024 ambulatory [facility] Start: 08-06-2024 End: 08-06-2024 Office outpatient visit 25 minutes Luis Donahue MD Work Phone: [facility] [place] Comment on above: Coronary artery dise ase involving [place] coronary artery of [place] heart without angina pectoris; Cardiomyopathy, idiopathic (Multi); Nonrheumatic aortic valve stenosis; Single subsegmental pulmonary embolism without acute cor pulmonale; Ischemic cardiomyopathy; PAF (paroxysmal atrial fibrillation) (Multi) Start: 03-06-2024 End: 03-06-2024 ambulatory [facility] Start: 03-06-2024 End: 03-06-2024 Office outpatient visit 25 minutes Luis Donahue MD Work Phone: [facility] [place] Comment on above: Ischemic cardiomyopa thy (Primary Dx); Coronary artery disease involving [place] coronary artery of [place] heart without angina pectoris; Cardiomyopathy, idiopathic (Multi); Nonrheumatic aortic valve stenosis; Single subsegmental pulmonary embolism without acute cor pulmonale; PAF (paroxysmal atrial fibrillation) (Multi) Start: 03-06-2024 End: 03-06-2024 ambulatory LUIS DONAHUE [facility] Start: 03-06-2024 End: 03-06-2024 Subsequent hospital visit by physician Emeli Echo Room 1 [facility] Comment on above: Coronary artery dise ase involving [place] coronary artery of [place] heart without angina pectoris; Cardiomyopathy, idiopathic (Multi); Nonrheumatic aortic valve stenosis; Single subsegmental pulmonary embolism without acute cor pulmonale PAF (paroxysmal atri al fibrillation) (Multi) Start: 09-04-2023 End: 09-04-2023 Office outpatient visit 40 minutes Luis Donahue MD Work Phone: [facility] [place] Comment on above: Coronary artery dise ase involving [place] coronary artery of [place] heart without angina pectoris (Primary Dx); Cardiomyopathy, idiopathic (Multi); Nonrheumatic aortic valve stenosis; Single subsegmental pulmonary embolism without acute cor pulmonale (Multi) Start: 08-17-2023 End: 08-17-2023 Subsequent hospital visit by physician Sharath Koroma [address] [facility] Comment on above: Nonrheumatic aortic valve stenosis Start: 07-23-2023 End: 07-24-2023 ambulatory LORE MARQUES [facility] Start: 07-23-2023 End: 07-24-2023 ambulatory LORE RIVAS [facility] Start: 07-23-2023 End: 07-23-2023 Subsequent hospital visit by physician Asuncion [address] 1 [facility] Comment on above: Nonrheumatic aortic valve stenosis Start: 07-23-2023 End: 07-23-2023 Office outpatient new 60 minutes Lore Rivas MD Work Phone: [facility] [place] Comment on above: Aortic valve disease (Primary Dx) Start: 07-19-2023 End: 07-20-2023 ambulatory LORE MARQUES CNP Facility:B Start: 07-02-2023 End: 07-07-2023 Evaluation and management of inpatient SEFERINO HERNANDEZ MD Facility:A Start: 07-02-2023 End: 07-07-2023 Evaluation and management of inpatient DR ARMEN SWEENEY MD [facility] Start: 06-19-2023 End: 06-23-2023 Evaluation and management of inpatient [facility] Start: 06-19-2023 End: 06-23-2023 Evaluation and management of inpatient Guerda Page MD Work Phone: [facility]U H6 Comment on above: Spondylolisthesis of lumbosacral region (Primary Dx) Start: 06-18-2023 End: 06-18-2023 ambulatory [facility] Start: 06-18-2023 End: 06-18-2023 Encounter for other preprocedural examination [facility] Start: 06-14-2023 End: 06-14-2023 Office outpatient new 60 minutes Luis Donahue MD Work Phone: [facility] Comment on above: PVC (premature ventr icular contraction) (Primary Dx); Preoperative cardiovascular examination; Essential hypertension; Diabetes mellitus type II, non insulin dependent (CMS/HCC); Abnormal EKG; Ischemic cardiomyopathy Start: 06-14-2023 End: 06-14-2023 Patient encounter status Luis Donahue MD Work Phone: [facility] Work Phone: Start: 06-14-2023 End: 06-14-2023 Subsequent hospital visit by physician Hud Echo Room 1 [facility] Comment on above: Abnormal EKG; Cardiac murmur, unspecified Start: 05-21-2023 End: 05-21-[address] Jerry Parmar Work Phone: [facility] Work Phone: Start: 05-21-2023 End: 05-21-[address] Jerry Parmar Work Phone: [facility] Work Phone: Start: 05-11-2023 End: 05-11-2023 ambulatory SEFERINO HERNANDEZ [facility] Start: 05-02-2023 End: 05-02-[address] Jerry Parmar Work Phone: [facility] Work Phone: Start: 04-24-2023 Telephone encounter Karol tong MD Work Phone: [facility] [place] Comment on above: Surgery Scheduling ( 06/19/2023) Start: 03-30-2023 End: 03-31-2023 ambulatory SFEERINO HERNANDEZ MD Facility:B Start: 03-30-2023 End: 03-30-2023 Patient encounter procedure SEFERINO HERNANDEZ MD [facility] Start: 11-09-2022 End: 11-10-2022 ambulatory SEFERINO HERNANDEZ MD Facility:B Start: 11-09-2022 End: 11-09-2022 Patient encounter procedure SEFERINO HERNANDEZ MD [facility] Start: 10-26-2022 End: 10-27-2022 ambulatory SEFERINO HERNANDEZ MD Facility:B Start: 10-26-2022 End: 10-26-2022 Patient encounter procedure SEFERINO HERNANDEZ MD [facility] Start: 08-14-2021 End: 08-14-2021 Emergency department patient visit DR JAYDEN CHOWDARY DO [facility] Start: 04-07-2021 End: 04-07-2021 Patient encounter procedure SEFERINO HERNANDEZ MD [facility] Procedures Date Procedure Procedure Detail Performing Clinician Start: 07-23-2023 CT TAVR FULL CONTRAS T CHEST ABDOMEN PELVIS AMANDEEP VILLANUEVA Start: 07-23-2023 AMB REFERRAL TO VALV E AND STRUCTURAL HEART PROGRAM AMANDEEP VILLANUEVA Start: 07-23-2023 Ct angiography chest w/contrast/noncontrast Amandeep Villanueva MD Work Phone: Start: 06-23-2023 Glucose quantitative blood xcpt reagent strip Guerda Page MD Work Phone: Start: 06-23-2023 Glucose quantitative blood xcpt reagent strip Guerda Page MD Work Phone: Start: 06-22-2023 Glucose quantitative blood xcpt reagent strip Guerda Page MD Work Phone: Start: 06-22-2023 Glucose quantitative blood xcpt reagent strip Guerda Page MD Work Phone: Start: 06-22-2023 Glucose quantitative blood xcpt reagent strip Rhett C Tre DO Work Phone: Start: 06-22-2023 Glucose quantitative blood xcpt reagent strip Rhett C Tre DO Work Phone: Start: 06-21-2023 Glucose quantitative blood xcpt reagent strip Rhett C Tre DO Work Phone: Start: 06-21-2023 Glucose quantitative blood xcpt reagent strip Rhett C Tre DO Work Phone: Start: 06-21-2023 Glucose quantitative blood xcpt reagent strip Rhett C Tre DO Work Phone: Start: 06-21-2023 Radex spine lumbosac ral minimum 4 views Tosin Aguila MD Work Phone: Start: 06-21-2023 Glucose quantitative blood xcpt reagent strip Rhett C Tre DO Work Phone: Start: 06-21-2023 Basic metabolic pane l calcium total Rhett C Tre DO Work Phone: Start: 06-20-2023 Glucose quantitative blood xcpt reagent strip Rhett Romaner DO Work Phone: Start: 06-20-2023 Glucose quantitative blood xcpt reagent strip Rhett C Tre DO Work Phone: Start: 06-20-2023 Glucose quantitative blood xcpt reagent strip Rhett Toledo DO Work Phone: Start: 06-20-2023 End: 06-20-2023 Glucose quantitative blood xcpt reagent strip Guerda Page MD Work Phone: Start: 06-20-2023 Basic metabolic pane l calcium total Tosin Aguila MD Work Phone: Start: 06-19-2023 Glucose quantitative blood xcpt reagent strip Guerda Page MD Work Phone: Start: 06-19-2023 Glucose quantitative blood xcpt reagent strip Guerda Page MD Work Phone: Start: 06-19-2023 FL GUIDANCE OR USE O NLY - NON-RESULTABLE Guerda Page MD Work Phone: Start: 06-19-2023 Radiologic exam abdo men 1 view Guerda Page MD Work Phone: Start: 06-19-2023 End: 06-19-2023 Arthrodesis anterior interbody lumbar Guerda Page MD Work Phone: Start: 06-19-2023 End: 06-19-2023 Aguillon facetectomy & foramotomy 1 segment lumbar Guerda Page MD Work Phone: Start: 06-19-2023 Glucose quantitative blood xcpt reagent strip Guerda Page MD Work Phone: Start: 06-18-2023 Antibody screen GUERDA DUENAS Comment on above: Performed By: #### L [id number] ####Configuration Management Analyst: WINSTON HEDRICK ([id number])[facility] ([facility])[address] [place] [address] Start: 06-14-2023 Echo tthrc r-t 2d w/wom-mode compl spec&colr d Luis Donahue MD Work Phone: Start: 05-21-2023 Computerized axial tomography of lumbar spine with contrast Dr. Jerry Parmar Work Phone: Start: 05-02-2023 X-ray of lumbar spin e, two or three views Dr. Jerry Parmar Work Phone: Appendectomy SEFERINO Triana Arthroplasty of knee SEFERINO HERNANDEZ MD Back structure, excl uding neck (body structure) SEFERINO HERNANDEZ MD Comment on above: herniated discs Cataract (morphologi c abnormality) SEFERINO HERNANDEZ MD Comment on above: Right eye Hernia of abdominal cavity (disorder) SEFERINO HERNANDEZ MD Repair of tendo achilles KURT ROSIO HERANNDEZ MD Spinal arthrodesis DR JACQUES SWEENEY MD Comment on above: L4-5 Plan of Treatment Date Care Activity Detail Author Start: 02-16-2025 End: 02-16-2025 Patient encounter procedure [facility] Start: 02-05-2025 End: 08-06-2025 Heart Transthoracic Transthoracic echo (TTE) complete Echocardiography Routine Coronary artery disease involving [place] coronary artery of [place] heart without angina pectoris Cardiomyopathy, idiopathic (Multi) Nonrheumatic aortic valve stenosis Single subsegmental pulmonary embolism without acute cor pulmonale Ischemic cardiomyopathy PAF (paroxysmal atrial fibrillation) (Multi) Expected: 02/05/2025 (Approximate), Expires: 08/06/2025 [facility] Service Area Work Phone: Comment on above: Expected: 02/05/2025 (Approximate), Expires: 08/06/2025 Start: 12-29-2024 Influenza vaccination Influenz a Vaccine (Season Ended) [facility] Start: 07-16-2024 End: 07-16-2024 Patient encounter procedure 07/16/2024 1:10 PM EDT Office Visit [facility] [address] [place] [address] Luis Donahue MD [address] [place] [address] [facility] Start: 03-06-2024 End: 09-03-2024 US Heart Transthoracic [facility] Service Area Work Phone: Comment on above: Expected: 03/06/2024 (Approximate), Expires: 09/03/2024 Once for 1 Occurrenc es starting 03/06/2024 until 03/06/2024 Start: 03-06-2024 End: 03-06-2024 Patient encounter procedure [facility] Start: 12-30-2023 COVID-19 Vaccine ( season) COVID-19 Vaccine () [facility] Start: 12-30-2023 Influenza vaccination [facility] Start: 09-18-2023 Hemoglobin A1c measurement Diabetes: Hemoglobin A1C [facility] Start: 07-26-2023 End: 07-26-2023 Patient encounter procedure [facility] Start: 06-19-2023 End: 06-19-2023 Admission to same day surgery center 06/19/2023 7:30 AM EST - 06/19/2023 12:30 PM EST Surgery [facility] MAIN OR [address] [place] [address] Guerda Page MD [address] [place] [address] ANTERIOR LUMBAR INTERBODY FUSION LUMBAR 4/5-SACRAL 1, INTERBODY DEVICE BONE MORPHOGENETIC PROTEIN, POSTERIOR FUSION LUMBAR 4/5-SACRAL 1, DECOMPRESSION LUMBAR 2-1-0-4-5-SACRAL 1, PEDICLE INSTRUMENTATION AND LOCAL BONE [[id number] ([facility] )] [facility] Comment on above: ANTERIOR LUMBAR INTE RBODY FUSION LUMBAR 4/5-SACRAL 1, INTERBODY DEVICE BONE MORPHOGENETIC PROTEIN, POSTERIOR FUSION LUMBAR 4/5-SACRAL 1, DECOMPRESSION LUMBAR 2-8-4-4-5-SACRAL 1, PEDICLE INSTRUMENTATION AND LOCAL BONE [[id number] ([facility] )] Start: 06-19-2023 End: 06-19-2023 Arthrodesis anterior interbody ea addl ntrspc ANTERIOR MICRODISCECTOMY AND FUSION EACH ADDITIONAL LEVEL Spondylolisthesis, lumbosacral region 06/19/2023 7:30 AM EST [facility] Operating [facility] Start: 06-19-2023 End: 06-19-2023 Arthrodesis anterior interbody lumbar ANTERIOR LUMBAR MICRODISCECTOMY AND FUSION Spondylolisthesis, lumbosacral region 06/19/2023 7:30 AM EST [facility] Start: 06-19-2023 End: 06-19-2023 Arthrodesis posterior/posterolateral ea addl POSTERIOR OR POSTEROLATERAL FUSION EACH ADDITIONAL LEVEL Spondylolisthesis, lumbosacral region 06/19/2023 7:30 AM EST [facility] Start: 06-19-2023 End: 06-19-2023 Arthrodesis posterior/posterolateral lumbar POSTERIOR LUMBAR FUSION Spondylolisthesis, lumbosacral region 06/19/2023 7:30 AM EST [facility] Start: 06-19-2023 End: 06-19-2023 Insj biomchn dev intervertebral dsc spc w/arthrd INSERTION OF INTERBODY BIOMECHANICAL DEVICE Spondylolisthesis, lumbosacral region 06/19/2023 7:30 AM EST [facility] Start: 06-19-2023 End: 06-19-2023 Aguillon facetectomy & foramotomy 1 segment lumbar POSTERIOR LUMBAR LAMINECTOMY FACETECTOMY FORAMINOTOMY AND DECOMPRESSION Spondylolisthesis, lumbosacral region 06/19/2023 7:30 AM EST [facility] Start: 06-19-2023 End: 06-19-2023 Aguillon facetectomy&foramtomy 1 sgm ea crv thrc/lmbr POSTERIOR CERVICAL/THORACIC/LUMBAR LAMINECTOMY FACETECTOMY FORAMINOTOMY AND DECOMPRESSION EACH ADDITIONAL Spondylolisthesis, lumbosacral region 06/19/2023 7:30 AM EST [facility] Start: 06-19-2023 End: 06-19-2023 Posterior segmental instrumentation 3-6 vrt seg POSTERIOR SPINAL INSTRUMENTATION 3 TO 6 LEVELS Spondylolisthesis, lumbosacral region 06/19/2023 7:30 AM EST [facility] Start: 06-19-2023 Subsequent hospital visit by physician 06/19/2023 7:30 AM EST Hospital Encounter [facility] MA[facility] [address] [place] [address] Guerda Page MD [address] [facility] [place] [address] [facility] Start: 06-18-2023 End: 06-18-2023 Admission to establishment 06/18/2023 4:30 PM EST Pre-Admission Testing [facility] Pre-Admit Testing [address] [place] [address] [facility] Pre-Admit Testing Start: 12-29-2022 COVID-19 Vaccine ( season) COVID-19 Vaccine ( season) [facility] Start: 12-29-2022 Influenza vaccination Influenza Vacc ine (#1) [facility] Start: 05-07-2020 Hemoglobin A1c measurement Diabetes: Hemoglobin A1C [facility] Start: 08-11-2018 RSV High Risk: (Elde rly (60+) or Population) (1 - 1-dose 75+ series) RSV High Risk: (Elderly (60+) or Population) (1 - 1-dose 75+ series) [facility] Start: 08-30-2015 DTaP/Tdap/Td Vaccine s (2 - Tdap) DTaP/Tdap/Td Vaccines (2 - Tdap) [facility] Start: 08-11-2008 Pneumococcal Vaccine : 65+ Years (1 of 1 - PCV) Pneumococcal Vaccine: 65+ Years (1 of 1 - PCV) [facility] Start: 2003 RSV Immunization age d 60 or older (1 - 1-dose 60+ series) RSV Immunization aged 60 or older (1 - 1-dose 60+ series) [facility] Start: 2003 RSV patient s and/or patients aged 60+ years (1 - 1-dose 60+ series) RSV patients and/or patients aged 60+ years (1 - 1-dose 60+ series) [facility] Start: 08-11-1993 Zoster Vaccines (1 of 2) Zoster Vacc conchis (1 of 2) [facility] Start: 08-11-1962 DTaP/Tdap/Td Vaccine s (1 - Tdap) DTaP/Tdap/Td Vaccines (1 - Tdap) [facility] Start: 08-11-1962 Pneumococcal vaccination Pneum ococcal Vaccine (1 of 2 - PCV) [facility] Start: 08-11-1962 Urine screening for protein Diabetes: Urine Protein Screening [facility] Start: 08-11-1961 Hepatitis C screening Hepatitis C Sc reening [facility] Start: 1955 Depression Screening Depression Scre ening [facility] Start: 08-11-1953 Diabetic foot examination Diabetes: Foot Exam [facility] Start: 08-11-1953 Glaucoma screening Diabetes: R etinopathy Screening [facility] Start: 08-11-1949 Pneumococcal Vaccine : 65+ Years (1 - PCV) Pneumococcal Vaccine: 65+ Years (1 - PCV) [facility] Start: 08-11-1949 Pneumococcal Vaccine : 65+ Years (1 of 2 - PCV) Pneumococcal Vaccine: 65+ Years (1 of 2 - PCV) [facility] Start: 1943 Lipid panel Lipid Panel [facility] Start: 1943 Urine screening for protein Diabetes: Urine Protein Screening [facility] Start: 1943 Yearly Adult Physical Yearly Adult P hysical [facility] ECG 12 lead (Clinic Performed) ECG 12 lead (Clinic Performed) ECG Routine Coronary artery disease involving [place] coronary artery of [place] heart without angina pectoris 03/06/2024 1:40 PM EST [facility] Area Work Phone: End: 03-06-2024 Holter monitor study [facility] Work Phone: Comment on above: Once for 1 Occurrenc es starting 03/06/2024 until 03/06/2024 End: 08-17-2023 Stress cardiac echo study report [facility] Work Phone: Comment on above: Once for 1 Occurrenc es starting 08/17/2023 until 08/17/2023 Immunizations Immunization Date Immunization Notes Care Provider Fa [facility] 09-07-2020 SARS-CoV-2 mRNA (tozinameran) vaccine SEFERINO HERNANDEZ MD [facility] 08-18-2020 SARS-CoV-2 mRNA (tozinamerarenate) vaccine SEFERINO HERNANDEZ MD [facility] Payers Date Payer Category Payer Sharing Agreements [facility] [address] [place] [address] [id number] 2023 Unknown [id number] 2023 Unknown [id number] 2023 Unknown [id number] 2022 Unknown [id number] 1943 Unknown [id number] 51 1943 Unknown [id number] 27 1943 Unknown [id number] 27 1943 Unknown [id number] 27 1943 Unknown [id number] 27 1943 Unknown [id number] 27 1943 Unknown [id number] 245 1943 Unknown [id number] 245 1943 Unknown [id number] 245 1943 Unknown [id number] 242 1943 Unknown [id number] 242 1943 Unknown [id number] 242 1943 Unknown [id number] 242 Self-pay SELF PAY INSURANCE [id number] Social History Date Type Detail Facility Start: 04-05-2021 End: 06-14-2023 Never smoked tobacco (finding) [facility] Sex Assigned At [facility] Start: 05-02-2023 [facility] Start: 1945 Sex Assigned At Male [facility] Start: 1945 Sex Assigned At Not on file [facility] Start: 06-14-2023 End: 03-06-2024 Gender identity Not on file [facility] Start: 06-14-2023 End: 06-18-2023 Tobacco use and exposure Smokeless tobacco non-user [facility] Work Phone: Start: 06-14-2023 End: 07-26-2023 Alcohol intake Current drinker of alcohol (finding) [facility] Work Phone: Start: 06-14-2023 End: 03-06-2024 Alcohol intake [facility] Work Phone: Start: 06-04-2023 End: 08-06-2024 Exposure to SARS-CoV-2 (event) Not sure [facility] Start: 09-04-2023 End: 08-06-2024 Alcoholic beverage intake Ex-drinker (finding) [facility] Work Phone: Medical Equipment Procedure Code Equipment Code Equipment Origin al Text Equipment Identifier Dates Cage Spine Lumba r 14x17.5x23mm - [id number] Start: 06-19-2023 Screw Spinal [id number] - [id number] Start: 06-19-2023 Screw Set Ti Spi nal Break Off - [id number] Start: 06-19-2023 Jody Spnl Cromall oy Bent 5.5x60 - [id number] Start: 06-19-2023 Functional Status Date Assessment Result Facility 07-07-2023 Functional Status Room check performed [facility] 07-07-2023 Functional Status Up to chair [facility] 07-07-2023 Functional [facility] 07-06-2023 Functional Status [facility] 07-06-2023 Functional Status [facility] 07-06-2023 Functional Status 7pm-7am [facility] 07-06-2023 Functional Status Done [facility] 07-06-2023 Functional Status Maintained [facility] 07-06-2023 Functional Status Mod I [facility] 07-06-2023 Functional Status [facility] Functional Status [facility] 07-06-2023 Functional Status [facility] 07-06-2023 Functional Status Sensory Deficits None A [facility] 07-05-2023 Functional Status Jael Care Moderate assi stance [facility] 07-05-2023 Functional Status [facility] 07-05-2023 Functional Status pt's son Samy [facility] 07-05-2023 Functional Status Independent [facility] 07-04-2023 Functional Status [facility] 07-04-2023 Functional Status [facility] 07-04-2023 Functional Status Mobility Keyanna tance Level Supervision [facility] 07-04-2023 Functional Status [facility] 07-04-2023 Functional Status [facility] 07-03-2023 Functional Status [facility] 07-03-2023 Functional Status [facility] 08-14-2021 Functional Status [facility] 08-14-2021 Functional Status [facility] Mental Status Date Assessment Result Facility 07-07-2023 Mental Status Orientation Oriented x 4 [facility] 07-07-2023 Mental Status [facility] 07-06-2023 Mental Status [facility] 07-06-2023 Mental Status [facility] 08-14-2021 Mental Status [facility] 08-14-2021 Mental Status [facility] Clinical Notes 10-18-2020 to 08-06-2024 Luis Donahue MD - 08/06/2024 2:40 PM EDTEkameron Donahue MD - 03/06/2024 1:40 PM Saumya Donahue MD - 09/04/2023 11:20 AM EDTAddendum Note - Luis Donahue MD - 09/04/2023 11:20 AM EDT Note Date & Type Note Facility 08-06-2024 History of Present illness Narrative Chief Complaint: Coronary Artery Disease History of Present Illness Azar Triplett is a 78 y.o. male presenting with AVENDANO s/p NICOLE LAD 07/06/23. Subsequently Dx moderate aortic stenosis and EF 40-45% and not severe aortic stenosis by dobtamine stress echo. Incidental finding of segmental PE on CT and Rx Eliquis. Denies CP or AVENDANO, no edema. CT TAVR 3/25/24 segmental PE, PAD femorals. Since last here on 09/04/23. In AF today. Denies CP, AVENDANO, edema, palpitations. Since here Feb 2024, no CP, dyspnea or palpitations. Holter 03/06/24 0.86% PAF, 9% PVC's, NSVT. No syncope. Review of Systems All pertinent systems have been reviewed and are negative except for what is stated in the history of present illness. All other systems have been reviewed and are negative and noncontributory to this patient's current ailments. Previous History Past Medical History: He has a past medical history of Abnormal EKG (06/14/2023), Cardiomyopathy, idiopathic (Multi) (09/03/2023), Coronary artery disease involving [place] coronary artery of [place] heart without angina pectoris (07/26/2023), Diabetes mellitus type II, non insulin dependent (Multi) (06/14/2023), Essential hypertension (06/14/2023), Nonrheumatic aortic valve stenosis (06/14/2023), PAF (paroxysmal atrial fibrillation) (Multi) (03/06/2024), Preoperative cardiovascular examination (06/14/2023), PVC (premature ventricular contraction) (06/14/2023), and Single subsegmental pulmonary embolism without acute cor pulmonale (09/04/2023). Past Surgical History: He has no past surgical history on file. Social History: He reports that he has never smoked. He has never used smokeless tobacco. He reports that he does not currently use alcohol after a past usage of about 2.0 standard drinks of alcohol per week. He reports that he does not use drugs. Family History: No family history on file. Allergies: Patient has no known allergies. Outpatient Medications: Current Outpatient Medications Medication Instructions amLODIPine (NORVASC) 5 mg, Daily apixaban (ELIQUIS) 5 mg, oral, 2 times daily atorvastatin (LIPITOR) 40 mg, Daily carvedilol (COREG) 12.5 mg, oral, 2 times daily (morning and late afternoon) clopidogrel (PLAVIX) 75 mg, oral, Daily glimepiride (AMARYL) 4 mg, Daily hydroCHLOROthiazide (Microzide) 12.5 mg capsule TAKE 1 CAPSULE BY MOUTH ONCE DAILY FOR 90 DAYS lisinopril 20 mg tablet TAKE 1 TABLET BY MOUTH DAILY 90d potassium chloride CR 20 mEq ER tablet 20 mEq, Daily Physical Examination Vitals: Visit Vitals BP 169/85 (BP Location: Right arm) Pulse 67 Temp 36.7 C (98 F) Wt 80.7 kg (178 lb) BMI 29.62 kg/m Smoking Status Never BSA 1.92 m Physical Exam Vitals reviewed. Constitutional: General: He is not in acute distress. Appearance: Normal appearance. HENT: Head: Normocephalic and atraumatic. Nose: Nose normal. Eyes: Conjunctiva/sclera: Conjunctivae normal. Cardiovascular: Rate and Rhythm: Normal rate and regular rhythm. Pulses: Normal pulses. Heart sounds: Murmur heard. Systolic murmur is present with a grade of 2/6. Pulmonary: Effort: Pulmonary effort is normal. No respiratory distress. Breath sounds: Normal breath sounds. No wheezing, rhonchi or rales. Abdominal: General: Bowel sounds are normal. There is no distension. Palpations: Abdomen is soft. Tenderness: There is no abdominal tenderness. Musculoskeletal: General: No swelling. Right lower leg: No edema. Left lower leg: No edema. Skin: General: Skin is warm and dry. Capillary Refill: Capillary refill takes less than 2 seconds. Neurological: General: No focal deficit present. Mental Status: He is alert. Psychiatric: Mood and Affect: Mood normal. Labs/Imaging/Cardiac Studies Last Labs: CBC - No results found for: WBC, HGB, HCT, MCV, PLT CMP - No results found for: CALCIUM, PHOS, PROT, ALBUMIN, AST, ALT, ALKPHOS, BILITOT LIPID PANEL - No results found for: CHOL, HDL, CHHDL, LDL, VLDL, TRIG, NHDL RENAL FUNCTION PANEL - No results found for: GLU, K, CHLOR, PHOS Lab Results Component Value Date HGBA1C 7.8 (H) 06/20/2023 HGBA1C 7.0 (H) 02/05/2020 ECG: Echo: Transthoracic echo (TTE) complete Result Date: 03/07/2024 [facility] [place], [place] [id number] and TRANSTHORACIC ECHOCARDIOGRAM REPORT Patient Name: AZAR TRIPLETT Reading Physician: [id number] Luis Donahue MD Study Date: 03/06/2024 Ordering Provider: [id number] LUIS DONAHUE MRN/PID: [id number] Fellow: Nurse: Date of /Age: 4 1945 Environmental Services Project Manager: Shamika Farley andrew CS Gender assigned at M Additional Staff: : Height: 165.10 cm Admit Date: 03/06/2024 Weight: 83.91 kg Admission Status: Outpatient BSA / BMI: 1.91 m2 / 30.79 kg/m2 Blood Pressure: / Department Location: [facility] Study Type: TRANSTHORACIC ECHO (TTE) COMPLETE Diagnosis/ICD: Unspecified atrial fibrillation-I48.91; Nonrheumatic aortic (valve) stenosis-I35.0 Indication: Atrial Fibrillation CPT Code: Echo Complete w Full Doppler-[id number] Study Detail: The following Echo studies were performed: 2D, M-Mode, Doppler and color flow. Patient's heart rhythm is atrial fibrillation and with premature ventricular contractions. A bubble study was not performed. PHYSICIAN INTERPRETATION: Left Ventricle: The left ventricular systolic function is mildly decreased, with a visually estimated ejection fraction of 45-50%. The patient is in atrial fibrillation which may influence the estimate of left ventricular function and transvalvular flows. There are multiple left ventricular wall motion abnormalities. The left ventricular cavity size is normal. There is mildly increased septal and mildly increased posterior left ventricular wall thickness. There is left ventricular concentric remodeling. Left ventricular diastolic filling is indeterminate. LV Wall Scoring: The mid and apical anterior wall, mid anterolateral segment, and apical lateral segment are akinetic. All remaining scored segments are normal. Left Atrium: The left atrium is mildly dilated. A bubble study using agitated saline was not performed. Right Ventricle: The right ventricle is normal in size. There is mildly reduced right ventricular systolic function. Right Atrium: The right atrium is normal in size. Aortic Valve: The aortic valve is trileaflet. There is moderate aortic valve cusp calcification. There is severe aortic valve thickening. There is reduced systolic aortic valve leaflet excursion. There is evidence of moderate aortic valve stenosis. There is low flow across the aortic valve, with a normal ejection fraction. The aortic valve dimensionless index is 0.31. There is no evidence of aortic valve regurgitation. The peak instantaneous gradient of the aortic valve is 33 mmHg. The mean gradient of the aortic valve is 18 mmHg. Mitral Valve: The mitral valve is mildly thickened. There is mild mitral valve regurgitation. Tricuspid Valve: The tricuspid valve is structurally normal. There is mild tricuspid regurgitation. Pulmonic Valve: The pulmonic valve is structurally normal. There is no indication of pulmonic valve regurgitation. Pericardium: There is no pericardial effusion noted. Aorta: The aortic root is normal. In comparison to the previous echocardiogram(s): Compared with study dated 06/14/2023, no significant change. CONCLUSIONS: 1. Mid and apical anterior wall, mid anterolateral segment, and apical lateral segment are abnormal. 2. The left ventricular systolic function is mildly decreased, with a visually estimated ejection fraction of 45-50%. 3. There are multiple left ventricular wall motion abnormalities. 4. Left ventricular diastolic filling is indeterminate. 5. There is mildly reduced right ventricular systolic function. 6. The left atrium is mildly dilated. 7. Moderate aortic valve stenosis. 8. There is moderate aortic valve cusp calcification. 9. There is severe aortic valve thickening. 10. The patient is in atrial fibrillation which may influence the estimate of left ventricular function and transvalvular flows. QUANTITATIVE DATA SUMMARY: 2D MEASUREMENTS: Normal Ranges: LAs: 3.95 cm (2.7-4.0cm) RVIDd: 2.36 cm (0.9-3.6cm) IVSd: 1.12 cm (0.6-1.1cm) LVPWd: 1.03 cm (0.6-1.1cm) LVIDd: 4.75 cm (3.9-5.9cm) LVIDs: 3.01 cm LV Mass Index: 97 g/m2 LVEDV Index: 59 ml/m2 LV % FS 36.5 % LA VOLUME: Normal Ranges: LA Vol A4C: 66.2 ml (22+/-6mL/m2) LA Vol A2C: 68.7 ml LA Vol BP: 70.8 ml LA Vol Index A4C: 34.6 ml/m2 LA Vol Index A2C: 35.9 ml/m2 LA Vol Index BP: 37.0 ml/m2 LA Area A4C: 20.5 cm2 LA Area A2C: 19.9 cm2 LA Major Cushing A4C: 5.4 cm LA Major Cushing A2C: 4.9 cm LA Vol A4C: 61.9 ml LA Vol A2C: 62.9 ml LA Vol Index BSA: 32.6 ml/m2 RA VOLUME BY A/L METHOD: Normal Ranges: RA Vol A4C: 23.3 ml (8.3-19.5ml) RA Vol Index A4C: 12.2 ml/m2 RA Area A4C: 11.1 cm2 RA Major Cushing A4C: 4.5 cm LV SYSTOLIC FUNCTION BY 2D PLANIMETRY (MOD): Normal Ranges: EF-A4C View: 51 % (>=55%) EF-A2C View: 45 % EF-Biplane: 50 % EF-Visual: 48 % LV EF Reported: 48 % LV DIASTOLIC FUNCTION: Normal Ranges: MV Peak E: 0.94 m/s (0.7-1.2 m/s) MV Peak A: 0.40 m/s (0.42-0.7 m/s) E/A Ratio: 2.35 (1.0-2.2) MV e' 0.058 m/s (>8.0) MV lateral e' 0.07 m/s MV medial e' 0.04 m/s E/e' Ratio: 16.25 (<8.0) MITRAL VALVE: Normal Ranges: MV DT: 134 msec (150-240msec) AORTIC VALVE: Normal Ranges: AoV Vmax: 2.87 m/s (<=1.7m/s) AoV Peak P.8 mmHg (<20mmHg) AoV Mean P.2 mmHg (1.7-11.5mmHg) LVOT Max Celine: 0.91 m/s (<=1.1m/s) AoV VTI: 54.36 cm (18-25cm) LVOT VTI: 16.61 cm LVOT Diameter: 2.29 cm (1.8-2.4cm) AoV Area, VTI: 1.25 cm2 (2.5-5.5cm2) AoV Area,Vmax: 1.31 cm2 (2.5-4.5cm2) AoV Dimensionless Index: 0.31 RIGHT VENTRICLE: RV Basal 2.80 cm RV Major 7.1 cm TAPSE: 14.3 mm RV s' 0.09 m/s TRICUSPID VALVE/RVSP: Normal Ranges: Peak TR Velocity: 2.47 m/s AORTA: Asc Ao Diam 3.52 cm [id number] Luis Donahue MD Electronically signed on 03/07/2024 at 7:40:35 AM Wall Scoring Final Echocardiogram Stress Test Result Date: 08/20/2023 [facility], [address] [place] [address] and Dobutamine Stress Echo Patient Name: AZAR TRIPLETT Ordering Provider: [id number] DONAHUE Study Date: 08/17/2023 Reading Physician: [id number] Donahue MD MRN/PID: [id number] Supervising Physician: [id number] Juan Edward MD Fellow: Date of /Age: 4 1945 / 78 years Fellow: Gender: M Nurse: Ilana Ruth RN Admit Date: 08/17/2023 Armature Balancer: Admission Status: Outpatient Environmental Services Project Manager: Vesta Farmer RDCS Height: 165.10 cm Technologist: Bret Frank CVT Weight: 77.11 kg Additional Staff: BSA: 1.85 m2 BMI: 28.29 kg/m2 Patient Location: [facility] Study Type: ECHOCARDIOGRAM STRESS TEST Diagnosis/ICD: Nonrheumatic aortic (valve) insufficiency-I35.1 Indication: Non rheumatic aortic valve stenosis CPT Code: Falls Risk: Moderate: Patient has a moderate risk for sustaining a fall; a falls prevention plan has been implemented. Study Details: Correct procedure and correct patient verified verbally and with ID Band checked. Patient History: Hypertension and coronary artery disease. 78 y.o. male presents to be evaluated for non rheumatic aortic valve stenosis. PMH includes Ischemic cardiomyopathy. PSH includes recent spinal surgery. Allergies: None. [place] Location/Type: [place] on 07/06/2023 PCI and Stent: PCI performed on 07/06/2023 involving LAD. Diabetes: Yes, managed with Oral medicine for 5-10 years. Medications: The patient's prescribed medication is HCTZ-Lisinopril, Amlodipine, Glimiperide, Eliquis. Patient Performance: The patient received 40 mcg/kg/min of Dobutamine and a total dose of 0.25 mg of atropine in divided doses of 0.25 mg at 10:17:16 AM. The peak heart rate achieved was 122 bpm, which was 87 % of the age predicted target heart rate of 140 bpm. The resting blood pressure was 124/62 mmHg with a heart rate of 68 bpm. The standing blood pressure was 130/60 mmHg with a heart rate of 74 bpm. The patient developed no symptoms during the stress exam. The blood pressure response was normal. The test was terminated due to: completed lab protocol and MPHR >85%. Baseline ECG: Resting ECG showed normal sinus rhythm with T wave inversion leads I, aVL. PAC's, PVC's. Stress ECG: Stress ECG showed sinus tachycardia, with PAC's, PVC's, PVC couplets. There was a 1.[address] segment depression in leads II, III and aVF, V5 and V6 during the peak stress period. Stress Stage Data: +---+------+-------+ + HR Sys BP Cancino BP Comments +---+------+-------+ + 68 124 62 +---+------+-------+ + 74 130 60 +---+------+-------+ + Denies baseline chest discofo +---+------+-------+ + 69 120 64 Dobutamine 250mg/250cc D5W started at 5mcg/kg/min. No symptoms. SpO2 99% +---+------+-------+ + 83 134 64 Dobutamine 250mg/250cc D5W started at 10mcg/kg/min. No symptoms. +---+------+-------+ + 86 140 60 Dobutamine 250mg/250cc D5W started at 20mcg/kg/min. No symptoms. +---+------+-------+ + 98 156 56 Dobutamine 250mg/250cc D5W started at 30mcg/kg/min. Atropine 0.25mg given No symptoms. +---+------+-------+ + 120 162 56 Dobutamine 250mg/250cc D5W started at 40mcg/kg/min. No symptoms. +---+------+-------+ + Recovery ECG: Recovery ECG showed normal sinus rhythm, with PAC's, PVC's, Multi PVC couplet. + +---+------+-------+ + HR Sys BP Cancino BP Comments + +---+------+-------+ + Recovery I 109 166 54 No symptoms. + +---+------+-------+ + Recovery II 110 164 56 No symptoms. + +---+------+-------+ + Recovery III 102 148 56 No symptoms. + +---+------+-------+ + Recovery IV 93 140 56 No symptoms. + +---+------+-------+ + Recovery V 94 128 58 No symptoms. + +---+------+-------+ + Recovery 89 128 58 No symptoms. + +---+------+-------+ + Recovery VII 83 124 60 No symptoms. + +---+------+-------+ + Baseline Echo: There are no regional wall motion abnormalities at baseline. Resting Global LV dysfunction EF 40%. low gradient moderate-severe . Stress Echo: There are no stress induced regional wall motion abnormalities. Mild LV augmentation with dobutamine 40 mcg. is moderate NENA 1.2 with adequate increase in gradients. DI moderate . Aortic Valve: Resting AoV Vmax: 3.22 m/s AoV Peak Grad: 41.5 mmHg AoV Mean Grad: 24.4 mmHg AoV VTI: 0.71 m LVOT VTI: 0.24 m LVOT Vmax: 1.32 m/s LVOT Diameter: 2.04 cm AoV Area, VTI: 1.09 cm2 AoV Area, Vmax: 1.03 cm2 Aov Dim. Index: 0.34 Tricuspid Valve: Resting TR Vmax: 2.14 m/s TR Peak Grad: 18.3 mmHg RVSP: 23.3 mmHg Summary: 1. Resting Global LV dysfunction EF 40%. low gradient moderate-severe . 2. Adequate level of stress achieved. 3. Mild LV augmentation with dobutamine 40 mcg. is moderate NENA 1.2 with adequate increase in gradients. DI moderate . 4. No clinical or echocardiographic evidence for ischemia at a maximal infusion. [id number] Luis Donahue MD Electronically signed on 08/20/2023 at 2:34:29 PM Final Assessment and Recommendations Assessment/Plan 1. Coronary artery disease involving [place] coronary artery of [place] heart without angina pectoris The patient's CAD, as detailed in the HPI, has been clinically stable, without any anginal symptoms or dyspnea. The patient will continue treatment with guideline-directed medical therapy with ASA 81 mg every day lifelong and Stop Plavix (completed 1 year) and statin medications and was advised regular exercise and a heart healthy diet. - Follow Up In Cardiology 2. Nonrheumatic aortic valve stenosis The patient has moderate aortic stenosis and remains asymptomatic. There is no indication for AVR. The patient will continue to have serial annual echocardiography and was counseled on the expected symptoms related to aortic stenosis. Weight lifting restrictions reviewed. - Follow Up In Cardiology 3. Single subsegmental pulmonary embolism without acute cor pulmonale Stable, ASX on Eliquis for AF. - Follow Up In Cardiology 4. Ischemic cardiomyopathy (Primary) Mild LVD, ASX FC I and euvolemic on GDMT. 5. Hypertension Increase Coreg 25 mg BID. 6. PAF The patient has been clinically stable, asymptomatic, and maintaining normal sinus rhythm. They will continue treatment with rate-controlling medications (Coreg) and anticoagulation (Eliquis) for stroke prophylaxis based upon their present [id number] score, the risks and benefits of which were discussed with the patient/family/caregiver. Azar Triplett will return in 6 months for an office visit and Echo. Luis Donahue MD Exclusive of any other services or procedures performed, I, Luis Donahue MD , spent 30 minutes in duration for this visit today. This time consisted of chart review, obtaining history, and/or performing the exam as documented above as well as documenting the clinical information for the encounter in the electronic record, discussing treatment options, plans, and/or goals with patient, family, and/or caregiver, refilling medications, updating the electronic record, ordering medicines, lab work, imaging, referrals, and/or procedures as documented above and communicating with other [facility] professionals. I have discussed the results of laboratory, radiology, and cardiology studies with the patient and their family/caregiver. documented in this encounter [facility] Work Phone: 03-06-2024 History of Present illness Narrative Chief Complaint: Valve Disorder History of Present Illness Azar Triplett is a 78 y.o. male presenting with AVENDANO s/p NICOLE LAD 07/06/23. Subsequently Dx moderate aortic stenosis and Ef 40-45% and not severe by dobtamine stress echo. Incidental finding of segmental PE on CT and Rx Eliquis. Denies CP or AVENDANO, no edema. CT TAVR 07/23/23 segmental PE, PAD femorals. Since last here on 09/04/23. In AF today. Denies CP, AVENDANO, edema, palpitations. Review of Systems All pertinent systems have been reviewed and are negative except for what is stated in the history of present illness. All other systems have been reviewed and are negative and noncontributory to this patient's current ailments. Previous History Past Medical History: He has a past medical history of Abnormal EKG (06/14/2023), Cardiomyopathy, idiopathic (Multi) (09/03/2023), Coronary artery disease involving [place] coronary artery of [place] heart without angina pectoris (07/26/2023), Diabetes mellitus type II, non insulin dependent (Multi) (06/14/2023), Essential hypertension (06/14/2023), Nonrheumatic aortic valve stenosis (06/14/2023), Preoperative cardiovascular examination (06/14/2023), PVC (premature ventricular contraction) (06/14/2023), and Single subsegmental pulmonary embolism without acute cor pulmonale (09/04/2023). Past Surgical History: He has no past surgical history on file. Social History: He reports that he has never smoked. He has never used smokeless tobacco. He reports that he does not currently use alcohol after a past usage of about 2.0 standard drinks of alcohol per week. He reports that he does not use drugs. Family History: No family history on file. Allergies: Patient has no known allergies. Outpatient Medications: Current Outpatient Medications Medication Instructions amLODIPine (NORVASC) 5 mg, Daily apixaban (ELIQUIS) 5 mg, oral, 2 times daily atorvastatin (LIPITOR) 40 mg, Daily carvedilol (COREG) 6.25 mg, oral, 2 times daily (morning and late afternoon) clopidogrel (PLAVIX) 75 mg, oral, Daily glimepiride (AMARYL) 4 mg, Daily hydroCHLOROthiazide (Microzide) 12.5 mg capsule TAKE 1 CAPSULE BY MOUTH ONCE DAILY FOR 90 DAYS lisinopril 20 mg tablet TAKE 1 TABLET BY MOUTH DAILY 90d potassium chloride CR 20 mEq ER tablet 20 mEq, Daily Physical Examination Vitals: Visit Vitals BP 165/90 Pulse 82 Ht 1.651 m (5' 5) Wt 78.9 kg (174 lb) BMI 28.96 kg/m Smoking Status Never BSA 1.9 m Physical Exam Vitals reviewed. Constitutional: General: He is not in acute distress. Appearance: Normal appearance. HENT: Head: Normocephalic and atraumatic. Nose: Nose normal. Eyes: Conjunctiva/sclera: Conjunctivae normal. Cardiovascular: Rate and Rhythm: Normal rate. Rhythm irregularly irregular. Pulses: Normal pulses. Heart sounds: Murmur heard. Systolic murmur is present with a grade of 2/6. Pulmonary: Effort: Pulmonary effort is normal. No respiratory distress. Breath sounds: Normal breath sounds. No wheezing, rhonchi or rales. Abdominal: General: Bowel sounds are normal. There is no distension. Palpations: Abdomen is soft. Tenderness: There is no abdominal tenderness. Musculoskeletal: General: No swelling. Right lower leg: No edema. Left lower leg: No edema. Skin: General: Skin is warm and dry. Capillary Refill: Capillary refill takes less than 2 seconds. Neurological: General: No focal deficit present. Mental Status: He is alert. Psychiatric: Mood and Affect: Mood normal. Labs/Imaging/Cardiac Studies Last Labs: CBC - No results found for: WBC, HGB, HCT, MCV, PLT CMP - No results found for: CALCIUM, PHOS, PROT, ALBUMIN, AST, ALT, ALKPHOS, BILITOT LIPID PANEL - No results found for: CHOL, HDL, CHHDL, LDL, VLDL, TRIG, NHDL RENAL FUNCTION PANEL - No results found for: GLU, K, CHLOR, PHOS Lab Results Component Value Date HGBA1C 7.8 (H) 06/20/2023 HGBA1C 7.0 (H) 02/05/2020 ECG: Echo: Echocardiogram Stress Test Result Date: 08/20/2023 [facility], [address] [place] [address] and Dobutamine Stress Echo Patient Name: AZAR TRIPLETT Ordering Provider: [id number] LUIS DONAHUE Study Date: 08/17/2023 Reading Physician: [id number] Donahue MD MRN/PID: [id number] Supervising Physician: [id number] Juan Edward MD Fellow: Date of /Age: 4 1945 / 78 years Fellow: Gender: M Nurse: Ilana Ruth RN Admit Date: 08/17/2023 Armature Balancer: Admission Status: Outpatient Environmental Services Project Manager: Vesta Farmer RDCS Height: 165.10 cm Technologist: Bret Frank CVT Weight: 77.11 kg Additional Staff: BSA: 1.85 m2 BMI: 28.29 kg/m2 Patient Location: [facility] Study Type: ECHOCARDIOGRAM STRESS TEST Diagnosis/ICD: Nonrheumatic aortic (valve) insufficiency-I35.1 Indication: Non rheumatic aortic valve stenosis CPT Code: Falls Risk: Moderate: Patient has a moderate risk for sustaining a fall; a falls prevention plan has been implemented. Study Details: Correct procedure and correct patient verified verbally and with ID Band checked. Patient History: Hypertension and coronary artery disease. 78 y.o. male presents to be evaluated for non rheumatic aortic valve stenosis. PMH includes Ischemic cardiomyopathy. PSH includes recent spinal surgery. Allergies: None. [place]Type[place] on 07/06/2023 PCI and Stent: PCI performed on 07/06/2023 involving LAD. Diabetes: Yes, managed with Oral medicine for 5-10 years. Medications: The patient's prescribed medication is HCTZ-Lisinopril, Amlodipine, Glimiperide, Eliquis. Patient Performance: The patient received 40 mcg/kg/min of Dobutamine and a total dose of 0.25 mg of atropine in divided doses of 0.25 mg at 10:17:16 AM. The peak heart rate achieved was 122 bpm, which was 87 % of the age predicted target heart rate of 140 bpm. The resting blood pressure was 124/62 mmHg with a heart rate of 68 bpm. The standing blood pressure was 130/60 mmHg with a heart rate of 74 bpm. The patient developed no symptoms during the stress exam. The blood pressure response was normal. The test was terminated due to: completed lab protocol and MPHR >85%. Baseline ECG: Resting ECG showed normal sinus rhythm with T wave inversion leads I, aVL. PAC's, PVC's. Stress ECG: Stress ECG showed sinus tachycardia, with PAC's, PVC's, PVC couplets. There was a 1.[address] segment depression in leads II, III and aVF, V5 and V6 during the peak stress period. Stress Stage Data: +---+------+-------+ + HR Sys BP Cancino BP Comments +---+------+-------+ + 68 124 62 +---+------+-------+ + 74 130 60 +---+------+-------+ + Denies baseline chest discofo +---+------+-------+ + 69 120 64 Dobutamine 250mg/250cc D5W started at 5mcg/kg/min. No symptoms. SpO2 99% +---+------+-------+ + 83 134 64 Dobutamine 250mg/250cc D5W started at 10mcg/kg/min. No symptoms. +---+------+-------+ + 86 140 60 Dobutamine 250mg/250cc D5W started at 20mcg/kg/min. No symptoms. +---+------+-------+ + 98 156 56 Dobutamine 250mg/250cc D5W started at 30mcg/kg/min. Atropine 0.25mg given No symptoms. +---+------+-------+ + 120 162 56 Dobutamine 250mg/250cc D5W started at 40mcg/kg/min. No symptoms. +---+------+-------+ + Recovery ECG: Recovery ECG showed normal sinus rhythm, with PAC's, PVC's, Multi PVC couplet. + +---+------+-------+ + HR Sys BP Cancino BP Comments + +---+------+-------+ + Recovery I 109 166 54 No symptoms. + +---+------+-------+ + Recovery II 110 164 56 No symptoms. + +---+------+-------+ + Recovery III 102 148 56 No symptoms. + +---+------+-------+ + Recovery IV 93 140 56 No symptoms. + +---+------+-------+ + Recovery V 94 128 58 No symptoms. + +---+------+-------+ + Recovery 89 128 58 No symptoms. + +---+------+-------+ + Recovery VII 83 124 60 No symptoms. + +---+------+-------+ + Baseline Echo: There are no regional wall motion abnormalities at baseline. Resting Global LV dysfunction EF 40%. low gradient moderate-severe . Stress Echo: There are no stress induced regional wall motion abnormalities. Mild LV augmentation with dobutamine 40 mcg. is moderate NENA 1.2 with adequate increase in gradients. DI moderate . Aortic Valve: Resting AoV Vmax: 3.22 m/s AoV Peak Grad: 41.5 mmHg AoV Mean Grad: 24.4 mmHg AoV VTI: 0.71 m LVOT VTI: 0.24 m LVOT Vmax: 1.32 m/s LVOT Diameter: 2.04 cm AoV Area, VTI: 1.09 cm2 AoV Area, Vmax: 1.03 cm2 Aov Dim. Index: 0.34 Tricuspid Valve: Resting TR Vmax: 2.14 m/s TR Peak Grad: 18.3 mmHg RVSP: 23.3 mmHg Summary: 1. Resting Global LV dysfunction EF 40%. low gradient moderate-severe . 2. Adequate level of stress achieved. 3. Mild LV augmentation with dobutamine 40 mcg. is moderate NENA 1.2 with adequate increase in gradients. DI moderate . 4. No clinical or echocardiographic evidence for ischemia at a maximal infusion. [id number] Donahue MD Electronically signed on 08/20/2023 at 2:34:29 PM Final Transthoracic Echo (TTE) Complete Result Date: 06/14/2023 [facility] [place] [id number] and TRANSTHORACIC ECHOCARDIOGRAM REPORT Patient Name: AZAR TRIPLETTSANAM Guevara Physician: Ricky Donahue MD Study Date: 06/14/2023 Ordering Provider: Ricky DONAHUE MRN/PID: [id number] Fellow: Nurse: Date of /Age: 4 1945 / years Environmental Services Project Manager: LENA Gender: M Additional Staff: Height: 165.10 cm Admit Date: 06/14/2023 Weight: 81.19 kg Admission Status: Outpatient BSA / BMI: 1.89 m2 / 29.79 kg/m2 Department Location: [facility] Blood Pressure: 178 /95 mmHg Study Type: TRANSTHORACIC ECHO (TTE) COMPLETE Diagnosis/ICD: Abnormal electrocardiogram [ECG] [EKG]-R94.31; Cardiac murmur, unspecified-R01.1 Indication: Abnormal EKG, Heart Murmur CPT Code: Echo Complete w Full Doppler-[id number] Study Detail: The following Echo studies were performed: 2D, M-Mode, Doppler and color flow. A bubble study was not performed. PHYSICIAN INTERPRETATION: Left Ventricle: The left ventricular systolic function is mildly decreased, with an estimated ejection fraction of 40-45%. There are no regional wall motion abnormalities. The left ventricular cavity size is normal. Left Ventricular Global Longitudinal Strain - -13.7 %. Spectral Doppler shows an impaired relaxation pattern of left ventricular diastolic filling. Strain values are abnormal and are consistent with impaired LV function. LV Wall Scoring: The entire anterior wall, basal and mid anterolateral wall, and apical lateral segment are hypokinetic. All remaining scored segments are normal. Left Atrium: The left atrium is mildly dilated. Right Ventricle: The right ventricle is normal in size. There is normal right ventricular global systolic function. Right Atrium: The right atrium is normal in size. Aortic Valve: The aortic valve is trileaflet. There is moderate to severe aortic valve cusp calcification. There is There is reduced systolic aortic valve leaflet excursion. There is evidence of moderate to severe aortic valve stenosis. There is mild aortic valve regurgitation. The peak instantaneous gradient of the aortic valve is 37.2 mmHg. The mean gradient of the aortic valve is 20.6 mmHg. Mitral Valve: The mitral valve is mildly thickened. There is mild mitral valve regurgitation. Tricuspid Valve: The tricuspid valve is structurally normal. There is mild tricuspid regurgitation. Pulmonic Valve: The pulmonic valve is structurally normal. There is no indication of pulmonic valve regurgitation. Pericardium: There is no pericardial effusion noted. Aorta: The aortic root is normal. CONCLUSIONS: 1. Left ventricular systolic function is mildly decreased with a 40-45% estimated ejection fraction. 2. Entire anterior wall, basal and mid anterolateral wall, and apical lateral segment are abnormal. 3. Spectral Doppler shows an impaired relaxation pattern of left ventricular diastolic filling. 4. Moderate to severe aortic valve stenosis. 5. There is moderate to severe aortic valve cusp calcification. 6. Mild aortic valve regurgitation. QUANTITATIVE DATA SUMMARY: 2D MEASUREMENTS: Normal Ranges: LAs: 3.68 cm (2.7-4.0cm) RVIDd: 1.82 cm (0.9-3.6cm) IVSd: 1.28 cm (0.6-1.1cm) LVPWd: 1.02 cm (0.6-1.1cm) LVIDd: 4.89 cm (3.9-5.9cm) LVIDs: 3.13 cm LV Mass Index: 112.5 g/m2 LV % FS 36.1 % LA VOLUME: Normal Ranges: LA Vol A4C: 76.8 ml (22+/-6mL/m2) LA Vol A2C: 56.4 ml LA Vol BP: 66.4 ml LA Vol Index A4C: 40.7 ml/m2 LA Vol Index A2C: 29.9 ml/m2 LA Vol Index BP: 35.2 ml/m2 LA Area A4C: 22.5 cm2 LA Area A2C: 19.1 cm2 LA Major Cushing A4C: 5.6 cm LA Major Cushing A2C: 5.5 cm LA Vol A4C: 70.4 ml LA Vol A2C: 53.2 ml RA VOLUME BY A/L METHOD: Normal Ranges: RA Vol A4C: 16.3 ml (8.3-19.5ml) RA Vol Index A4C: 8.7 ml/m2 RA Area A4C: 9.4 cm2 RA Major Cushing A4C: 4.6 cm LV SYSTOLIC FUNCTION BY 2D PLANIMETRY (MOD): Normal Ranges: EF-A4C View: 41.6 % (>=55%) EF-A2C View: 35.1 % EF-Biplane: 40.5 % Global Longitudinal Strain (GLS): -13.7 % LV DIASTOLIC FUNCTION: Normal Ranges: MV Peak E: 0.74 m/s (0.7-1.2 m/s) MV Peak A: 1.04 m/s (0.42-0.7 m/s) E/A Ratio: 0.70 (1.0-2.2) MV e' 0.05 m/s (>8.0) MV lateral e' 0.06 m/s MV medial e' 0.04 m/s MV A Dur: 97.05 msec E/e' Ratio: 14.71 (<8.0) MITRAL VALVE: Normal Ranges: MV DT: 142 msec (150-240msec) AORTIC VALVE: Normal Ranges: AoV Vmax: 3.05 m/s (<=1.7m/s) AoV Peak P.2 mmHg (<20mmHg) AoV Mean P.6 mmHg (1.7-11.5mmHg) LVOT Max Celine: 1.01 m/s (<=1.1m/s) AoV VTI: 65.11 cm (18-25cm) LVOT VTI: 20.51 cm LVOT Diameter: 2.06 cm (1.8-2.4cm) AoV Area, VTI: 1.05 cm2 (2.5-5.5cm2) AoV Area,Vmax: 1.10 cm2 (2.5-4.5cm2) AoV Dimensionless Index: 0.32 RIGHT VENTRICLE: RV Basal 2.50 cm RV Major 7.1 cm TAPSE: 20.0 mm RV s' 0.11 m/s TRICUSPID VALVE/RVSP: Normal Ranges: Peak TR Velocity: 2.60 m/s Est. RA Pressure: 3 mmHg RV Syst Pressure: 30.0 mmHg (< 30mmHg) PULMONIC VALVE: Normal Ranges: PV Accel Time: 99 msec (>120ms) PV Max Celine: 1.0 m/s (0.6-0.9m/s) PV Max P.9 mmHg AORTA: Asc Ao Diam 3.18 cm [id number] Luis Donahue MD Electronically signed on 06/14/2023 at 10:49:57 AM Wall Scoring Final Assessment and Recommendations Assessment/Plan 1. Coronary artery disease involving [place] coronary artery of [place] heart without angina pectoris The patient's CAD, as detailed in the HPI, has been clinically stable, without any anginal symptoms or dyspnea. The patient will continue treatment with guideline-directed medical therapy with antiplatelet and statin medications and was advised regular exercise and a heart healthy diet. - Follow Up In Cardiology 2. Nonrheumatic aortic valve stenosis The patient has moderate aortic stenosis and remains asymptomatic. There is no indication for AVR. The patient will continue to have serial annual echocardiography and was counseled on the expected symptoms related to aortic stenosis. Weight lifting restrictions reviewed. - Follow Up In Cardiology 3. Single subsegmental pulmonary embolism without acute cor pulmonale Stable, ASX on Eliquis. - Follow Up In Cardiology 4. Ischemic cardiomyopathy (Primary) Mild LVD, ASX FC I and euvolemic on GDMT. 5. Hypertension Increase Coreg. 6. PAF In rate controlled AF today. On Eliquis. 7-day Holter. Azar Triplett will return in 4 months for an office visit. Luis Donahue MD Exclusive of any other services or procedures performed, I, Luis Donahue MD , spent 30 minutes in duration for this visit today. This time consisted of chart review, obtaining history, and/or performing the exam as documented above as well as documenting the clinical information for the encounter in the electronic record, discussing treatment options, plans, and/or goals with patient, family, and/or caregiver, refilling medications, updating the electronic record, ordering medicines, lab work, imaging, referrals, and/or procedures as documented above and communicating with other [facility] professionals. I have discussed the results of laboratory, radiology, and cardiology studies with the patient and their family/caregiver. documented in this encounter [facility] Work Phone: 09-04-2023 History of Present illness Narrative Chief Complaint: Cardiomyopathy History of Present Illness Azar Triplett is a 78 y.o. male presenting with AVENDANO s/p NICOLE LAD 07/06/23. Ola no improvement. Subsequently Dx moderate aortic stenosis and Ef 40-45% and not severe by dobtamine stress echo. Incidental finding of segmental PE on CT and Rx Eliquis. Denies CP or AVENDANO, no edema. Previous History Past Medical History: He has a past medical history of Abnormal EKG (06/14/2023), Cardiomyopathy, idiopathic (Multi) (09/03/2023), Coronary artery disease involving [place] coronary artery of [place] heart without angina pectoris (07/26/2023), Diabetes mellitus type II, non insulin dependent (Multi) (06/14/2023), Essential hypertension (06/14/2023), Nonrheumatic aortic valve stenosis (06/14/2023), Preoperative cardiovascular examination (06/14/2023), PVC (premature ventricular contraction) (06/14/2023), and Single subsegmental pulmonary embolism without acute cor pulmonale (Multi) (09/04/2023). Past Surgical History: He has no past surgical history on file. Social History: He reports that he has never smoked. He has never used smokeless tobacco. He reports that he does not currently use alcohol after a past usage of about 2.0 standard drinks of alcohol per week. He reports that he does not use drugs. Family History: No family history on file. Allergies: Patient has no known allergies. Outpatient Medications: Current Outpatient Medications Medication Instructions amLODIPine (NORVASC) 5 mg, oral, Daily apixaban (ELIQUIS) 5 mg, oral, 2 times daily atorvastatin (LIPITOR) 40 mg, oral, Daily carvedilol (COREG) 6.25 mg, oral, 2 times daily with meals clopidogrel (PLAVIX) 75 mg, oral, Daily glimepiride (AMARYL) 4 mg, oral, Daily, Take with food. hydroCHLOROthiazide (Microzide) 12.5 mg capsule TAKE 1 CAPSULE BY MOUTH ONCE DAILY FOR 90 DAYS lisinopril 20 mg tablet TAKE 1 TABLET BY MOUTH DAILY 90d potassium chloride CR 20 mEq ER tablet 20 mEq, oral, Daily, Take with food. Physical Examination Vitals: Visit Vitals BP 166/81 Pulse 68 Temp 36.8 C (98.2 F) Ht 1.651 m (5' 5) Wt 84.1 kg (185 lb 8 oz) BMI 30.87 kg/m Smoking Status Never BSA 1.96 m Physical Exam Vitals reviewed. Constitutional: General: He is not in acute distress. Appearance: Normal appearance. HENT: Head: Normocephalic and atraumatic. Nose: Nose normal. Eyes: Conjunctiva/sclera: Conjunctivae normal. Cardiovascular: Rate and Rhythm: Normal rate and regular rhythm. Pulses: Normal pulses. Heart sounds: Murmur heard. Systolic murmur is present with a grade of 2/6. Pulmonary: Effort: Pulmonary effort is normal. No respiratory distress. Breath sounds: Normal breath sounds. No wheezing, rhonchi or rales. Abdominal: General: Bowel sounds are normal. There is no distension. Palpations: Abdomen is soft. Tenderness: There is no abdominal tenderness. Musculoskeletal: General: No swelling. Right lower le+ Edema present. Left lower le+ Edema present. Skin: General: Skin is warm and dry. Capillary Refill: Capillary refill takes less than 2 seconds. Neurological: General: No focal deficit present. Mental Status: He is alert. Psychiatric: Mood and Affect: Mood normal. Labs/Imaging/Cardiac Studies Last Labs: CBC - No results found for: WBC, HGB, HCT, MCV, PLT CMP - No results found for: CALCIUM, PHOS, PROT, ALBUMIN, AST, ALT, ALKPHOS, BILITOT LIPID PANEL - No results found for: CHOL, HDL, CHHDL, LDL, VLDL, TRIG, NHDL RENAL FUNCTION PANEL - No results found for: GLU, K, CHLOR, PHOS Lab Results Component Value Date HGBA1C 7.8 (H) 06/20/2023 HGBA1C 7.0 (H) 02/05/2020 ECG: Echo: Echocardiogram Stress Test Result Date: 08/20/2023 [facility], [address] [place] [address] and Dobutamine Stress Echo Patient Name: AZAR TRIPLETT Ordering Provider: [id number] LUIS DONAHUE Study Date: 08/17/2023 Reading Physician: [id number] Dnoahue MD MRN/PID: [id number] Supervising Physician: [id number] Juan Edward MD Fellow: Date of /Age: 4 1945 / 78 years Fellow: Gender: M Nurse: Ilana Ruth mannequin sander and finisher Date: 08/17/2023 Armature Balancer: Admission Status: Outpatient Environmental Services Project Manager: Vesta Farmer RDCS Height: 165.10 cm Technologist: Bret Frank CVT Weight: 77.11 kg Additional Staff: BSA: 1.85 m2 BMI: 28.29 kg/m2 Patient Location: [facility] Study Type: ECHOCARDIOGRAM STRESS TEST Diagnosis/ICD: Nonrheumatic aortic (valve) insufficiency-I35.1 Indication: Non rheumatic aortic valve stenosis CPT Code: Falls Risk: Moderate: Patient has a moderate risk for sustaining a fall; a falls prevention plan has been implemented. Study Details: Correct procedure and correct patient verified verbally and with ID Band checked. Patient History: Hypertension and coronary artery disease. 78 y.o. male presents to be evaluated for non rheumatic aortic valve stenosis. PMH includes Ischemic cardiomyopathy. PSH includes recent spinal surgery. Allergies: None. [place]Type[place] on 07/06/2023 PCI and Stent: PCI performed on 07/06/2023 involving LAD. Diabetes: Yes, managed with Oral medicine for 5-10 years. Medications: The patient's prescribed medication is HCTZ-Lisinopril, Amlodipine, Glimiperide, Eliquis. Patient Performance: The patient received 40 mcg/kg/min of Dobutamine and a total dose of 0.25 mg of atropine in divided doses of 0.25 mg at 10:17:16 AM. The peak heart rate achieved was 122 bpm, which was 87 % of the age predicted target heart rate of 140 bpm. The resting blood pressure was 124/62 mmHg with a heart rate of 68 bpm. The standing blood pressure was 130/60 mmHg with a heart rate of 74 bpm. The patient developed no symptoms during the stress exam. The blood pressure response was normal. The test was terminated due to: completed lab protocol and MPHR >85%. Baseline ECG: Resting ECG showed normal sinus rhythm with T wave inversion leads I, aVL. PAC's, PVC's. Stress ECG: Stress ECG showed sinus tachycardia, with PAC's, PVC's, PVC couplets. There was a 1.[address] segment depression in leads II, III and aVF, V5 and V6 during the peak stress period. Stress Stage Data: +---+------+-------+ + HR Sys BP Cancino BP Comments +---+------+-------+ + 68 124 62 +---+------+-------+ + 74 130 60 +---+------+-------+ + Denies baseline chest discofo +---+------+-------+ + 69 120 64 Dobutamine 250mg/250cc D5W started at 5mcg/kg/min. No symptoms. SpO2 99% +---+------+-------+ + 83 134 64 Dobutamine 250mg/250cc D5W started at 10mcg/kg/min. No symptoms. +---+------+-------+ + 86 140 60 Dobutamine 250mg/250cc D5W started at 20mcg/kg/min. No symptoms. +---+------+-------+ + 98 156 56 Dobutamine 250mg/250cc D5W started at 30mcg/kg/min. Atropine 0.25mg given No symptoms. +---+------+-------+ + 120 162 56 Dobutamine 250mg/250cc D5W started at 40mcg/kg/min. No symptoms. +---+------+-------+ + Recovery ECG: Recovery ECG showed normal sinus rhythm, with PAC's, PVC's, Multi PVC couplet. + +---+------+-------+ + HR Sys BP Cancino BP Comments + +---+------+-------+ + Recovery I 109 166 54 No symptoms. + +---+------+-------+ + Recovery II 110 164 56 No symptoms. + +---+------+-------+ + Recovery III 102 148 56 No symptoms. + +---+------+-------+ + Recovery IV 93 140 56 No symptoms. + +---+------+-------+ + Recovery V 94 128 58 No symptoms. + +---+------+-------+ + Recovery 89 128 58 No symptoms. + +---+------+-------+ + Recovery VII 83 124 60 No symptoms. + +---+------+-------+ + Baseline Echo: There are no regional wall motion abnormalities at baseline. Resting Global LV dysfunction EF 40%. low gradient moderate-severe . Stress Echo: There are no stress induced regional wall motion abnormalities. Mild LV augmentation with dobutamine 40 mcg. is moderate NENA 1.2 with adequate increase in gradients. DI moderate . Aortic Valve: Resting AoV Vmax: 3.22 m/s AoV Peak Grad: 41.5 mmHg AoV Mean Grad: 24.4 mmHg AoV VTI: 0.71 m LVOT VTI: 0.24 m LVOT Vmax: 1.32 m/s LVOT Diameter: 2.04 cm AoV Area, VTI: 1.09 cm2 AoV Area, Vmax: 1.03 cm2 Aov Dim. Index: 0.34 Tricuspid Valve: Resting TR Vmax: 2.14 m/s TR Peak Grad: 18.3 mmHg RVSP: 23.3 mmHg Summary: 1. Resting Global LV dysfunction EF 40%. low gradient moderate-severe . 2. Adequate level of stress achieved. 3. Mild LV augmentation with dobutamine 40 mcg. is moderate NENA 1.2 with adequate increase in gradients. DI moderate . 4. No clinical or echocardiographic evidence for ischemia at a maximal infusion. 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 A bubble study was not performed. PHYSICIAN INTERPRETATION: Left Ventricle: The left ventricular systolic function is mildly decreased, with an estimated ejection fraction of 40-45%. There are no regional wall motion abnormalities. The left ventricular cavity size is normal. Left Ventricular Global Longitudinal Strain - -13.7 %. Spectral Doppler shows an impaired relaxation pattern of left ventricular diastolic filling. Strain values are abnormal and are consistent with impaired LV function. LV Wall Scoring: The entire anterior wall, basal and mid anterolateral wall, and apical lateral segment are hypokinetic. All remaining scored segments are normal. Left Atrium: The left atrium is mildly dilated. Right Ventricle: The right ventricle is normal in size. There is normal right ventricular global systolic function. Right Atrium: The right atrium is normal in size. Aortic Valve: The aortic valve is trileaflet. There is moderate to severe aortic valve cusp calcification. There is There is reduced systolic aortic valve leaflet excursion. There is evidence of moderate to severe aortic valve stenosis. There is mild aortic valve regurgitation. The peak instantaneous gradient of the aortic valve is 37.2 mmHg. The mean gradient of the aortic valve is 20.6 mmHg. Mitral Valve: The mitral valve is mildly thickened. There is mild mitral valve regurgitation. Tricuspid Valve: The tricuspid valve is structurally normal. There is mild tricuspid regurgitation. Pulmonic Valve: The pulmonic valve is structurally normal. There is no indication of pulmonic valve regurgitation. Pericardium: There is no pericardial effusion noted. Aorta: The aortic root is normal. CONCLUSIONS: 1. Left ventricular systolic function is mildly decreased with a 40-45% estimated ejection fraction. 2. Entire anterior wall, basal and mid anterolateral wall, and apical lateral segment are abnormal. 3. Spectral Doppler shows an impaired relaxation pattern of left ventricular diastolic filling. 4. Moderate to severe aortic valve stenosis. 5. There is moderate to severe aortic valve cusp calcification. 6. Mild aortic valve regurgitation. QUANTITATIVE DATA SUMMARY: 2D MEASUREMENTS: Normal Ranges: LAs: 3.68 cm (2.7-4.0cm) RVIDd: 1.82 cm (0.9-3.6cm) IVSd: 1.28 cm (0.6-1.1cm) LVPWd: 1.02 cm (0.6-1.1cm) LVIDd: 4.89 cm (3.9-5.9cm) LVIDs: 3.13 cm LV Mass Index: 112.5 g/m2 LV % FS 36.1 % LA VOLUME: Normal Ranges: LA Vol A4C: 76.8 ml (22+/-6mL/m2) LA Vol A2C: 56.4 ml LA Vol BP: 66.4 ml LA Vol Index A4C: 40.7 ml/m2 LA Vol Index A2C: 29.9 ml/m2 LA Vol Index BP: 35.2 ml/m2 LA Area A4C: 22.5 cm2 LA Area A2C: 19.1 cm2 LA Major Cushing A4C: 5.6 cm LA Major Cushing A2C: 5.5 cm LA Vol A4C: 70.4 ml LA Vol A2C: 53.2 ml RA VOLUME BY A/L METHOD: Normal Ranges: RA Vol A4C: 16.3 ml (8.3-19.5ml) RA Vol Index A4C: 8.7 ml/m2 RA Area A4C: 9.4 cm2 RA Major Cushing A4C: 4.6 cm LV SYSTOLIC FUNCTION BY 2D PLANIMETRY (MOD): Normal Ranges: EF-A4C View: 41.6 % (>=55%) EF-A2C View: 35.1 % EF-Biplane: 40.5 % Global Longitudinal Strain (GLS): -13.7 % LV DIASTOLIC FUNCTION: Normal Ranges: MV Peak E: 0.74 m/s (0.7-1.2 m/s) MV Peak A: 1.04 m/s (0.42-0.7 m/s) E/A Ratio: 0.70 (1.0-2.2) MV e' 0.05 m/s (>8.0) MV lateral e' 0.06 m/s MV medial e' 0.04 m/s MV A Dur: 97.05 msec E/e' Ratio: 14.71 (<8.0) MITRAL VALVE: Normal Ranges: MV DT: 142 msec (150-240msec) AORTIC VALVE: Normal Ranges: AoV Vmax: 3.05 m/s (<=1.7m/s) AoV Peak P.2 mmHg (<20mmHg) AoV Mean P.6 mmHg (1.7-11.5mmHg) LVOT Max Celine: 1.01 m/s (<=1.1m/s) AoV VTI: 65.11 cm (18-25cm) LVOT VTI: 20.51 cm LVOT Diameter: 2.06 cm (1.8-2.4cm) AoV Area, VTI: 1.05 cm2 (2.5-5.5cm2) AoV Area,Vmax: 1.10 cm2 (2.5-4.5cm2) AoV Dimensionless Index: 0.32 RIGHT VENTRICLE: RV Basal 2.50 cm RV Major 7.1 cm TAPSE: 20.0 mm RV s' 0.11 m/s TRICUSPID VALVE/RVSP: Normal Ranges: Peak TR Velocity: 2.60 m/s Est. RA Pressure: 3 mmHg RV Syst Pressure: 30.0 mmHg (< 30mmHg) PULMONIC VALVE: Normal Ranges: PV Accel Time: 99 msec (>120ms) PV Max Celine: 1.0 m/s (0.6-0.9m/s) PV Max P.9 mmHg AORTA: Asc Ao Diam 3.18 cm [id number] Luis Donahue MD Electronically signed on 06/14/2023 at 10:49:57 AM Wall Scoring Final Assessment and Recommendations Assessment/Plan 1. Coronary artery disease involving [place] coronary artery of [place] heart without angina pectoris The patient's CAD, as detailed in the HPI, has been clinically stable, without any anginal symptoms or dyspnea. The patient will continue treatment with guideline-directed medical therapy with antiplatelet and statin medications and was advised regular activity and a heart healthy diet. - clopidogrel (Plavix) 75 mg tablet; Take 1 tablet (75 mg) by mouth once daily. Dispense: 90 tablet; Refill: 3 - carvedilol (Coreg) 6.25 mg tablet; Take 1 tablet (6.25 mg) by mouth 2 times a day with meals. Dispense: 180 tablet; Refill: 3 2. Cardiomyopathy, idiopathic (Multi) Euvolemic, NYHA FC I and not appears to be due to aortic stenosis. S/p PCI to the LAD. Increase coreg. Stop ASA. Plavix for 1 year. - carvedilol (Coreg) 6.25 mg tablet; Take 1 tablet (6.25 mg) by mouth 2 times a day with meals. Dispense: 180 tablet; Refill: 3 3. Nonrheumatic aortic valve stenosis Confirmed moderate severity by DSE. ASX. - carvedilol (Coreg) 6.25 mg tablet; Take 1 tablet (6.25 mg) by mouth 2 times a day with meals. Dispense: 180 tablet; Refill: 3 4. Single subsegmental pulmonary embolism without acute cor pulmonale (Multi) 6-12 mos Eliquis and while on then drop ASA. No Hx VTE. - carvedilol (Coreg) 6.25 mg tablet; Take 1 tablet (6.25 mg) by mouth 2 times a day with meals. Dispense: 180 tablet; Refill: 3 Luis Donahue MD Exclusive of any other services or procedures performed, I, Luis Donahue MD , spent 30 minutes in duration for this visit today. This time consisted of chart review, obtaining history, and/or performing the exam as documented above as well as documenting the clinical information for the encounter in the electronic record, discussing treatment options, plans, and/or goals with patient, family, and/or caregiver, refilling medications, updating the electronic record, ordering medicines, lab work, imaging, referrals, and/or procedures as documented above and communicating with other [facility] professionals. I have discussed the results of laboratory, radiology, and cardiology studies with the patient and their family/caregiver. documented in this encounter [facility] Work Phone: 09-04-2023 Miscellaneous Notes Addended by: LUIS DONAHUE on: 09/04/2023 11:22 AM Modules accepted: Orders documented in this encounter [facility] Work Phone: 09-04-2023 Note Addended by: LUIS DONAHUE on: 09/04/2023 11:22 AM Modules accepted: Orders [facility] Work Phone: 07-23-2023 History of Present illness Narrative Images from the original note were not included. Cardio: Agustina HPI: 77-year-old male with past medical history of hypertension, AZ, CAD s/p PCI, diabetes mellitus, PVD who was referred to us for aortic stenosis. Patient endorses mild fatigue and shortness of breath. Says he can still walk half a mile per day with no issues. He had back surgery recently, and functional capacity has been limited because of spine issues. 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 Denies any chest pain, loss of consciousness. Patient recently had a LAD PCI in June 2023 states he did not feel any difference after the PCI and his symptoms. Also endorses bilateral lower extremity edema. ROS: Constitutional: fatigue Eyes: no acute eye problems, no blurred vision, no diplopia, no eye pain ENT: no nosebleeds, no acute hearing loss, no earache, no sore throat Cardiovascular: dyspnea on exertion, no chest pain Respiratory: no chronic cough, not coughing up sputum, no wheezing that is consistent with asthma Gastrointestinal: no acute bowel complaints Musculoskeletal: no acute arthralgias, no acute myalgias, no acute joint swelling Skin: no skin rashes, no change in skin color and pigmentation, no skin lesions and no skin lumps. Neurological: no headaches, no dizziness, no tingling, no fainting and no limb weakness. Psychiatric: no suicidal ideation, no confusion, no personality change and no emotional problems. Hematologic/Lymphatic: no bleeding issues. All other systems have been reviewed and are negative for complaint. TAVR Workup: - NYHA: II - Frailty: 06/04 - EKG: n/a - TTE: 06/14/2023 EF 40 to 45% mean gradient 20 mmHg, peak velocity 3.05 m/s - CT TAVR: Pending - [facility]: 07/06/2023 PCI of LAD - dental clearance: Yearly appointment last appointment January 2023 - [facility] Procedure Type: Isolated AVR PERIOPERATIVE OUTCOME ESTIMATE % Operative Mortality 6.76% Morbidity & Mortality 24.8% Stroke 2.52% Renal Failure 4.26% Reoperation 6.44% Prolonged Ventilation 11.9% Deep Sternal Wound Infection 0.081% Long Hospital Stay (>14 days) 12.1% Short Hospital Stay (<6 days)* 26.6% Physical Exam: Constitutional: alert and in no acute distress. Eyes: no erythema, swelling or discharge from the eye . ENT: no erythema, edema, exudate or lesions . Neck: neck is supple, no JVD Pulmonary: no increased work of breathing or signs of respiratory distress , lungs clear to auscultation. , normal percussion of chest and chest palpation normal . Cardiovascular: RRR, 3/6 JOAQUINA RUSB, 1+ B/L LE pitting edema, non-displaced PMI, no S3 or S4 Abdomen: abdomen non-tender, no masses and no hepatomegaly . Neurologic: non-focal neurologic examination. 06/14/2023 9:33 AM 07/23/2023 9:24 AM 07/23/2023 9:25 AM Vitals Systolic 178 173 178 Diastolic 95 94 108 Heart Rate 83 80 Temp 36.4 C (97.5 F) Height (in) 1.651 m (5' 5) 1.676 m (5' 6) Weight (lb) 179.3 176.4 BMI 29.84 kg/m2 28.47 kg/m2 BSA (m2) 1.93 m2 1.93 m2 Visit Report Report Report Report Current Outpatient Medications Medication Instructions amLODIPine (NORVASC) 10 mg, oral, Daily glimepiride (AMARYL) 4 mg, oral, Daily, Take with food. hydroCHLOROthiazide (Microzide) 12.5 mg capsule TAKE 1 CAPSULE BY MOUTH ONCE DAILY FOR 90 DAYS lisinopril 20 mg tablet TAKE 1 TABLET BY MOUTH DAILY 90d Impression: 77-year-old male with past medical history of hypertension, AZ, CAD s/p PCI, diabetes mellitus, PVD who was referred to us for aortic stenosis. Patient endorses mild fatigue and shortness of breath and LE edema Echo shows decline in EF. Patient recently had a LAD PCI in June 2023 states he did not feel any difference after the PCI and his symptoms. Plan: Patient will need a CT TAVR to better evaluate the aortic valve and the access We discussed all the risks associated with the procedure, including but not limited to stroke, AZ, pericardial tamponade, vascular complications, infection and were discussed with the patient. The risk of needing a permament pacemaker was also discussed in detail. The patient verbalized understanding and decided to proceed with the procedure. We will discuss this patient's case at our Valve Team meeting with representatives from Structural Heart and Cardiac Surgery. Our nurse navigators will contact patient with further diagnostic needs and formal plan. Associated attestation - Lore Rivas MD - 07/29/2023 9:34 AM EDT I saw and evaluated the patient. I personally obtained the davis and critical portions of the history and physical exam or was physically present for daivs and critical portions performed by the resident/fellow. I reviewed the resident/fellow's documentation and discussed the patient with the resident/fellow. I agree with the resident/fellow's medical decision making as documented in the note. Mr Triplett is an 77 y.o. man who is a patient of Dr. Seferino Hernandez; Dr. Luis Donahue is his vp product. I have been asked to see and evaluate him for aortic stenosis. His symptoms include AVENDANO and mild fatigue. More concerning is a single episode of syncope. He underwent PCI to the LAD earlier this month, and has had no change in his symptoms. His imaging is consistent with moderate aortic stenosis. AV mean gradient is 20 mmHG, and AV velocity is 3.05 m/s and NENA is 1.05 cm2. We had a nice discussion regarding the indication for intervention on his valve disease. This included catheter and surgical approaches. We discussed specific goals of reduction in symptoms, preservation of LV function and prolonging life. Specific risks of catheter based approaches discussed were vascular access complication, stroke and need for permanent pacemaker. In further evaluation we are obtaining a CT TAVR protocol to help with AV Ca Score as well as aortic root anatomy/geometry. I would lean toward treating him, given his syncope, even though he currently does not meet cirterial for severe aortic stenosis. AVCa score may help with this discrepancy. With regards to his surgical candidacy, I would offer him an open surgical approach. With regards to documented in this encounter [facility] Work Phone: 07-07-2023 Discharge summary Date of Service 07/07/2023 Discharge Diagnosis Vasovagal syncope CAD, s/p PCI [LAD/LCx] Elevated troponin, type II AZ Mild to moderate aortic stenosis- valve area by VTI is 1.2 cm Hypertension Type 2 diabetes mellitus Recent thoracic/lumbar surgery [06/19/2023] Peripheral vascular disease Hospital Course Patient is a 77-year-old male speaking male with past medical history consistent with type 2 diabetes mellitus, peripheral vascular disease, hypertension who presented to [place] ED from his routine orthopedic visit following a syncopal event. History provided was such that patient had been standing to have sutures removed and on sitting he started to experience lightheadedness and dizziness followed by a syncopal event lasting 1 minute. In the ED he was noted to be slightly hypertensive but was otherwise vitally stable. CBC showed hemoglobin 10.4, BMP showed mild hyperglycemia of 212. UA negative. D-dimer elevated at 2234. Troponin x 3 were slightly elevated but flat, NT proBNP slightly elevated at 1012. CTA chest was negative for PE but did show granulomatous process/infection and calcified nodules to the right hilar nodes. EKG showed poor R wave progression with ischemia to anterior leads. He was admitted to CCU with what appeared to be vasovagal syncope. Orthostatic vitals were negative. Given ischemic findings on EKG, he underwent stress test which returned positive for a high-grade anterior lateral/apical infarction/scar. Our team made contact with his orthopedic surgeon at [facility] [Dr. Page] who cleared patient to initiate antiplatelet therapy. He underwent LHC on 07/05/2023 where he had PCI to LCx, followed by PCI to LAD on 07/18/2023. He was started on aspirin, Plavix and atorvastatin for his CAD. His home hydrochlorothiazide was discontinued in order to initiate carvedilol for his systolic heart failure. Patient had a prior echocardiogram done with his vp product [Dr. Donahue] that was consistent with moderate severe aortic stenosis. After discussion with the patient, he has decided to pursue TAVR with his vp product in the outpatient setting. PT/OT was consulted given patient was in a SNF postoperatively. He had been cleared to return home on discharge. His hospital course was otherwise uncomplicated. On today's encounter he was resting comfortably in his bedside chair without any acute concerns. He is medically fit for discharge to continue follow-up with his PCP and primary vp product. Allergies NKA Procedures PCI to LCx [07/05/2023] Staged PCI to LAD [07/06/2023] Consults No qualifying data available. Imaging Results and Diagnostics NM Myocardial Spect Rest/Stress Result Date: July 04, 2023 Verified By: BRET SANTOS DO CLINICAL STATEMENT: Elevated troponins, syncope IMPRESSION: Enlarged and dilated appearing left ventricle with reduced systolic function;calculated LVEF 39%. Large size, high-grade anterolateral/apical tracer deficit associated withwall motion/thickening abnormality is compatible with prior myocardialinfarction/scar. A very small amount of reversibility may be presentalthough, not conclusive. No prior MPI studies available for comparison. CT Angiography Chest w/ Contrast Result Date: July 02, 2023 Verified By: AIDAN CRESPO DO CLINICAL STATEMENT: IMPRESSION: 1. No evidence of pulmonary embolism.2. Mild pulmonary edema.3. Evidence of granulomatous process/infection with multiple calcifiednodules within the right lung and calcified mediastinal and hilar lymphnodes. Mild, partially calcified right hilar adenopathy. XR Chest 1 View Result Date: July 02, 2023 Verified By: SEKOU SANDERS MD CLINICAL STATEMENT: IMPRESSION: Low lung volumes, otherwise no acute abnormality. Physical Exam Vitals and Measurements T: 36.6 C (Oral) TMIN: 36.5 C (Oral) TMAX: 36.6 C (Oral) HR: 83(Monitored) RR: 16 BP: 142/80 SpO2: 98% Weight Dosing Weight: 77.5 kg (07/06/23) Dosing Weight: 77.5 kg (07/02/23) GENERAL: Well-appearing elderly gentleman sitting comfortably in bedside chair HEAD: Normocephalic, atraumatic ENT: PERRLA, mucous membranes pink and moist, anicteric/acyanotic NECK: supple, no JVD, no mass or thyromegaly. CARDIAC: s1s2,RRR, no murmurs or rubs or gallops RESPIRATORY: Air entry equal bilaterally, no wheeze/crepitation/rhonchi ABDOMEN: soft , Nontender, no organomegaly, bowel sounds heard MUSCULOSKELETAL: full ROM , no gross deformities EXTREMETIES: no odema or calf tenderness, pulses full and equal in all limbs NEUROLOGICAL: alert, oriented x 3, grossly no focal neurological deficits SKIN: no rash or ulcers, right groin access site dressing clean and intact [no tenderness/swelling/ecchymosis] PSYCHIATRIC: mood/affect appropriate, no SI/HI Pending Labs and Studies None Code Status No qualifying data available. Admission Date 07/02/2023 Discharge Date 07/07/2023 Patient Instructions You were hospitalized for syncope [fainting spell] likely related to your blood pressure medications. During your stay you were found to have a positive stress test. You underwent cardiac catheterization which revealed multiple blockages. You had 3 stents placed on 07/05/2023, 07/06/2023. Your previous echocardiogram was concerning for moderate to severe aortic stenosis. You will need a valve replacement which can be discussed with your vp product. Please start taking aspirin and Plavix to protect your stents. Please start taking atorvastatin for cholesterol control. Please stop taking hydrochlorothiazide. Please start taking carvedilol 3.125 mg for blood pressure and heart rate control. Please keep your follow-up appointment with Dr. Donahue on 07/20/2023 to discuss valve replacement. Please follow-up with your PCP within 1 week of discharge. For any new or worsening concerns please present to your PCP or nearest ER. Thank you for allowing us to participate in your care. Medications New Prescription aspirin (aspirin 81 mg oral tablet, chewable)1 tab(s) by mouth once a day with a meal for 30 Days. Refills: 11. atorvastatin (atorvastatin 40 mg oral tablet)1 tab(s) by mouth once a day for 30 Days. Refills: 1. carvedilol (Coreg 3.125 mg oral tablet)1 tab(s) by mouth twice daily with meals for 30 Days. Refills: 1. clopidogrel (Plavix 75 mg oral tablet)1 tab(s) by mouth once a day for 30 Days. Refills: 11. Unchanged acetaminophen (acetaminophen 325 mg oral capsule)1 cap by mouth every 6 hours as needed as needed for pain. amLODIPine (amLODIPine 10 mg oral tablet)1 tab(s) by mouth every day for 90 Days. Take 1 tablet by mouth once daily.. Refills: 3. docusate (docusate sodium 100 mg oral tablet)1 tab(s) by mouth two (2) times a day as needed as needed for constipation. glimepiride (glimepiride 4 mg oral tablet)1 tab(s) by mouth once a day. Take with food. Refills: 3. insulin lispro (HumaLOG) (insulin lispro (Humalog) 100 units/mL injectable solution)Sliding Scale Subcutaneous four (4) times daily-before meals and at bedtime. lisinopril (lisinopril 20 mg oral tablet)1 tab(s) by mouth every day for 90 Days. TAKE 1 TABLET BY MOUTH EVERY DAY. Refills: 3. magnesium hydroxide (Milk of Magnesia)1,200 Milligram by mouth three (3) times a day as needed as needed for constipation. ondansetron (ondansetron 4 mg oral tablet)1 tab(s) by mouth every 8 hours as needed Nausea/Vomiting. oxyCODONE (oxyCODONE 5 mg oral tablet ( IMMEDIATE release ))0.5 tab(s) by mouth every 6 hours as needed as needed for pain. polyethylene glycol 3350 (Miralax Powder Packet)17 gram(s) by mouth once a day as needed Constipation. dissolve in 4 to 8 oz of beverage. potassium chloride (Potassium Chloride (Eqv-K-Tab) 20 mEq oral tablet, extended release)1 tab(s) by mouth once a day. Take with food. Refills: 11. sodium biphosphate-sodium phosphate (Fleet Enema 19 g-7 g rectal enema)133 Milliliter in the rectum once a day as needed as needed for constipation. Discontinued hydroCHLOROthiazide (hydroCHLOROthiazide 12.5 mg oral capsule)1 cap by mouth once a day for 90 Days. Take 1 capsule by mouth once daily.. Refills: 3. Follow Up Follow Up with LUIS DONAHUE MD When In 13 days 07/20/2023 EDT Why: Hospital follow up Where: [address] [place] [address] Follow Up with SEFERINO HERNANDEZ MD When Within 5 to 7 days Where: [address] [place] [address]- Follow Up with [facility] When Why: The Cardiac Rehab department will call you to schedule you for phase 2. We left you a brochure with information about cardiac rehab. If you have any questions please call [phone]. Where: [address] [address]- Follow Up Appointments No qualifying data available. Follow Up Labs/Studies Discharge Labs No Follow-up Labs Discharge Studies No Follow-up Studies Discharge Diet Discharge Diet - Ordered -- Type of Diet: Cardiac, Sodium limit: Low, 07/07/23 10:43:00 EST Discharge Activity Discharge Activity - Ordered -- Activity As Tolerated, 07/07/23 10:43:00 EST Condition on Discharge Fair Discharge Disposition Home Information Provided To Patient Digitally Signed by CHARLINE ROGERS MD on 07/07/2023 12:32 PM [facility] 07-07-2023 Hospital Discharge instructions Patient Education 07/07/2023 11:43:44 3- Heart Cath/PCI groin (01/2018)(CUSTOM) HEART CATHETERIZATION/PCI (groin) Discharge Instructions DIET INSTRUCTIONS Drink plenty of fluids for the next 48 hours to help your kidneys flush the heart cath dye out of your system ACTIVITIES May go up and down stairs CAREFULLY Do not drive car FOR 24 HOURS No heavy lifting GREATER THAN 10 POUNDS or pushing or straining FOR 2 DAYS Someone must stay with you at home after the procedure until the morning. BATHING/SHOWERING May tub bathe in 1 week May shower tomorrow WOUND CARE You will go home with a Band-Aid over your heart cath site. Keep a Band-Aid on for the next 24 hours and then leave open to air. Some degree of bruising and tenderness is normal around the heart cath site. It will take a while for any bruising to completely resolve. Keep your site clean and dry. You need to report the following to your vp product: Any draining or oozing from the site Any swelling at the site Any increased pain or tenderness at the site Any numbness in your leg where the procedure was done Any signs of infection IMPORTANT! CALL 911 FOR ANY BLEEDING OR SWELLING AT THE PROCEDURE SITE If there is any large amount of bleeding, you or someone else need to apply direct pressure to the site (just like the nurse did in the heart lab after your procedure). It is very important that you hold constant pressure. Do not release the pressure to check if the bleeding has stopped. You then need to be transported to the nearest emergency room. WATCH FOR SIGNS OF INFECTION (Usually appears 36-48 hours after surgery) A temperature above 100.5 Redness or swelling Increased pain Foul odor or drainage If you have any questions, please call your doctor at the number listed on your follow up instructions. Follow all instructions given to you by your physician Document Released: 04/16/2006 Document Revised: 04/02/2013 Document Reviewed: 04/17/2014 ExitCare Patient Information 2014 [employer]. This information is not intended to replace advice given to you by your health care provider. Make sure you discuss any questions you have with your health care provider. Follow Up Care 07/02/2023 12:22:37 With:SEFERINO HERNANDEZ MD Address: [address] [facility] [address] [facility] [place] [address]- When:5 to 7 days With:LUIS DONAHUE MD Address: [address] [place] [address] When:07/20/2023 Comments:Hospital follow up With:[facility] Address: [address] [address]- When: Unknown Comments:The Cardiac Rehab department will call you to schedule you for phase 2. We left you a brochure with information about cardiac rehab. If you have any questions please call [phone]. [facility] 07-07-2023 Discharge summary Date of Service 07/07/2023 Discharge Diagnosis Vasovagal syncope CAD, s/p PCI [LAD/LCx] Elevated troponin, type II [place] Mild to moderate aortic stenosis- valve area by VTI is 1.2 cm Hypertension Type 2 diabetes mellitus Recent thoracic/lumbar surgery [06/19/2023] Peripheral vascular disease Hospital Course Patient is a 77-year-old male speaking male with past medical history consistent with type 2 diabetes mellitus, peripheral vascular disease, hypertension who presented to [place] ED from his routine orthopedic visit following a syncopal event. History provided was such that patient had been standing to have sutures removed and on sitting he started to experience lightheadedness and dizziness followed by a syncopal event lasting 1 minute. In the ED he was noted to be slightly hypertensive but was otherwise vitally stable. CBC showed hemoglobin 10.4, BMP showed mild hyperglycemia of 212. UA negative. D-dimer elevated at 2234. Troponin x 3 were slightly elevated but flat, NT proBNP slightly elevated at 1012. CTA chest was negative for PE but did show granulomatous process/infection and calcified nodules to the right hilar nodes. EKG showed poor R wave progression with ischemia to anterior leads. He was admitted to CCU with what appeared to be vasovagal syncope. Orthostatic vitals were negative. Given ischemic findings on EKG, he underwent stress test which returned positive for a high-grade anterior lateral/apical infarction/scar. Our team made contact with his orthopedic surgeon at [facility] [Dr. Page] who cleared patient to initiate antiplatelet therapy. He underwent LHC on 07/05/2023 where he had PCI to LCx, followed by PCI to LAD on 07/18/2023. He was started on aspirin, Plavix and atorvastatin for his CAD. His home hydrochlorothiazide was discontinued in order to initiate carvedilol for his systolic heart failure. Patient had a prior echocardiogram done with his vp product [Dr. Donahue] that was consistent with moderate severe aortic stenosis. After discussion with the patient, he has decided to pursue TAVR with his vp product in the outpatient setting. PT/OT was consulted given patient was in a SNF postoperatively. He had been cleared to return home on discharge. His hospital course was otherwise uncomplicated. On today's encounter he was resting comfortably in his bedside chair without any acute concerns. He is medically fit for discharge to continue follow-up with his PCP and primary vp product. Allergies NKA Procedures PCI to LCx [07/05/2023] Staged PCI to LAD [07/06/2023] Consults No qualifying data available. Imaging Results and Diagnostics NM Myocardial Spect Rest/Stress Result Date: July 04, 2023 Verified By: BRET SANTOS DO CLINICAL STATEMENT: Elevated troponins, syncope IMPRESSION: Enlarged and dilated appearing left ventricle with reduced systolic function;calculated LVEF 39%. Large size, high-grade anterolateral/apical tracer deficit associated withwall motion/thickening abnormality is compatible with prior myocardialinfarction/scar. A very small amount of reversibility may be presentalthough, not conclusive. No prior MPI studies available for comparison. CT Angiography Chest w/ Contrast Result Date: July 02, 2023 Verified By: AIDAN CRESPO DO CLINICAL STATEMENT: IMPRESSION: 1. No evidence of pulmonary embolism.2. Mild pulmonary edema.3. Evidence of granulomatous process/infection with multiple calcifiednodules within the right lung and calcified mediastinal and hilar lymphnodes. Mild, partially calcified right hilar adenopathy. XR Chest 1 View Result Date: July 02, 2023 Verified By: SEKOU SANDERS MD CLINICAL STATEMENT: IMPRESSION: Low lung volumes, otherwise no acute abnormality. Physical Exam Vitals and Measurements T: 36.6 C (Oral) TMIN: 36.5 C (Oral) TMAX: 36.6 C (Oral) HR: 83(Monitored) RR: 16 BP: 142/80 SpO2: 98% Weight Dosing Weight: 77.5 kg (07/06/23) Dosing Weight: 77.5 kg (07/02/23) GENERAL: Well-appearing elderly gentleman sitting comfortably in bedside chair HEAD: Normocephalic, atraumatic ENT: PERRLA, mucous membranes pink and moist, anicteric/acyanotic NECK: supple, no JVD, no mass or thyromegaly. CARDIAC: s1s2,RRR, no murmurs or rubs or gallops RESPIRATORY: Air entry equal bilaterally, no wheeze/crepitation/rhonchi ABDOMEN: soft , Nontender, no organomegaly, bowel sounds heard MUSCULOSKELETAL: full ROM , no gross deformities EXTREMETIES: no odema or calf tenderness, pulses full and equal in all limbs NEUROLOGICAL: alert, oriented x 3, grossly no focal neurological deficits SKIN: no rash or ulcers, right groin access site dressing clean and intact [no tenderness/swelling/ecchymosis] PSYCHIATRIC: mood/affect appropriate, no SI/HI Pending Labs and Studies None Code Status No qualifying data available. Admission Date 07/02/2023 Discharge Date 07/07/2023 Patient Instructions You were hospitalized for syncope [fainting spell] likely related to your blood pressure medications. During your stay you were found to have a positive stress test. You underwent cardiac catheterization which revealed multiple blockages. You had 3 stents placed on 07/05/2023, 07/06/2023. Your previous echocardiogram was concerning for moderate to severe aortic stenosis. You will need a valve replacement which can be discussed with your vp product. Please start taking aspirin and Plavix to protect your stents. Please start taking atorvastatin for cholesterol control. Please stop taking hydrochlorothiazide. Please start taking carvedilol 3.125 mg for blood pressure and heart rate control. Please keep your follow-up appointment with Dr. Donahue on 07/20/2023 to discuss valve replacement. Please follow-up with your PCP within 1 week of discharge. For any new or worsening concerns please present to your PCP or nearest ER. Thank you for allowing us to participate in your care. Medications New Prescription aspirin (aspirin 81 mg oral tablet, chewable)1 tab(s) by mouth once a day with a meal for 30 Days. Refills: 11. atorvastatin (atorvastatin 40 mg oral tablet)1 tab(s) by mouth once a day for 30 Days. Refills: 1. carvedilol (Coreg 3.125 mg oral tablet)1 tab(s) by mouth twice daily with meals for 30 Days. Refills: 1. clopidogrel (Plavix 75 mg oral tablet)1 tab(s) by mouth once a day for 30 Days. Refills: 11. Unchanged acetaminophen (acetaminophen 325 mg oral capsule)1 cap by mouth every 6 hours as needed as needed for pain. amLODIPine (amLODIPine 10 mg oral tablet)1 tab(s) by mouth every day for 90 Days. Take 1 tablet by mouth once daily.. Refills: 3. docusate (docusate sodium 100 mg oral tablet)1 tab(s) by mouth two (2) times a day as needed as needed for constipation. glimepiride (glimepiride 4 mg oral tablet)1 tab(s) by mouth once a day. Take with food. Refills: 3. insulin lispro (HumaLOG) (insulin lispro (Humalog) 100 units/mL injectable solution)Sliding Scale Subcutaneous four (4) times daily-before meals and at bedtime. lisinopril (lisinopril 20 mg oral tablet)1 tab(s) by mouth every day for 90 Days. TAKE 1 TABLET BY MOUTH EVERY DAY. Refills: 3. magnesium hydroxide (Milk of Magnesia)1,200 Milligram by mouth three (3) times a day as needed as needed for constipation. ondansetron (ondansetron 4 mg oral tablet)1 tab(s) by mouth every 8 hours as needed Nausea/Vomiting. oxyCODONE (oxyCODONE 5 mg oral tablet ( IMMEDIATE release ))0.5 tab(s) by mouth every 6 hours as needed as needed for pain. polyethylene glycol 3350 (Miralax Powder Packet)17 gram(s) by mouth once a day as needed Constipation. dissolve in 4 to 8 oz of beverage. potassium chloride (Potassium Chloride (Eqv-K-Tab) 20 mEq oral tablet, extended release)1 tab(s) by mouth once a day. Take with food. Refills: 11. sodium biphosphate-sodium phosphate (Fleet Enema 19 g-7 g rectal enema)133 Milliliter in the rectum once a day as needed as needed for constipation. Discontinued hydroCHLOROthiazide (hydroCHLOROthiazide 12.5 mg oral capsule)1 cap by mouth once a day for 90 Days. Take 1 capsule by mouth once daily.. Refills: 3. Follow Up Follow Up with LUIS DONAHUE MD When In 13 days 07/20/2023 EDT Why: Hospital follow up Where: [address] [place] [address] Follow Up with SEFERINO HERNANDEZ MD When Within 5 to 7 days Where: [address] [facility] [place] [address]- Follow Up with [facility] When Why: The Cardiac Rehab department will call you to schedule you for phase 2. We left you a brochure with information about cardiac rehab. If you have any questions please call [phone]. Where: [address] [address]- Follow Up Appointments No qualifying data available. Follow Up Labs/Studies Discharge Labs No Follow-up Labs Discharge Studies No Follow-up Studies Discharge Diet Discharge Diet - Ordered -- Type of Diet: Cardiac, Sodium limit: Low, 07/07/23 10:43:00 EST Discharge Activity Discharge Activity - Ordered -- Activity As Tolerated, 07/07/23 10:43:00 EST Condition on Discharge Fair Discharge Disposition Home Information Provided To Patient Digitally Signed by CHARLINE ROGERS MD on 07/07/2023 12:32 PM [facility] 07-07-2023 Note Discharge Instructions Thank you for allowing [place] to assist you with your healthcare needs. The following is important discharge information regarding your hospital visit. Your Care Team SEFERINO HERNANDEZ MD Your Diagnosis Hypotension Syncope Syncope/Near syncope What to do next Instructions From Your Doctor You were hospitalized for syncope [fainting spell] likely related to your blood pressure medications. During your stay you were found to have a positive stress test. You underwent cardiac catheterization which revealed multiple blockages. You had 3 stents placed on 07/05/2023, 07/06/2023. Your previous echocardiogram was concerning for moderate to severe aortic stenosis. You will need a valve replacement which can be discussed with your vp product. Please start taking aspirin and Plavix to protect your stents. Please start taking atorvastatin for cholesterol control. Please stop taking hydrochlorothiazide. Please start taking carvedilol 3.125 mg for blood pressure and heart rate control. Please keep your follow-up appointment with Dr. Donahue on 07/20/2023 to discuss valve replacement. Please follow-up with your PCP within 1 week of discharge. For any new or worsening concerns please present to your PCP or nearest ER. Thank you for allowing us to participate in your care. Follow Up Appointments Follow Up with LUIS DONAHUE MD When In 13 days 07/20/2023 EDT Why: Hospital follow up Where: [address] [place] [address] Follow Up with SEFERINO HERNANDEZ MD When Within 5 to 7 days Where: [address] [facility] [place] [address]- Follow Up with [facility] When Why: The Cardiac Rehab department will call you to schedule you for phase 2. We left you a brochure with information about cardiac rehab. If you have any questions please call [phone]. Where: [address] [address]- The Following Activity and Diet Have Been Ordered for You Discharge Activity - Ordered -- Activity As Tolerated, 07/07/23 10:43:00 EST Discharge Diet - Ordered -- Type of Diet: Cardiac, Sodium limit: Low, 07/07/23 10:43:00 EST The Following Equipment Has Been Ordered for You No qualifying data available. The Following Treatments Have Been Ordered for You Discharge Labs No qualifying data available. Discharge Radiology No qualifying data available. Other Therapies No qualifying data available. Post Acute Orders No qualifying data available. Someone Will Contact You Regarding These Home Health Referrals No home referrals have been ordered for you. No one will call you. Allergies NKA Medications Please ask your primary doctor or pharmacist before taking any other medication not listed, including over the counter drugs, herbal medications, vitamins and or supplements as they may interact with your home medications. What How Much When Instructions Last Dose New aspirin (aspirin 81 mg oral tablet, chewable) 1 tab(s) by mouth Once a day with a meal Duration: 30 Days Refills: 11 Pickup at [facility] New atorvastatin (atorvastatin 40 mg oral tablet) 1 tab(s) by mouth Once a day Duration: 30 Days Refills: 1 Pickup at [facility] New carvedilol (Coreg 3.125 mg oral tablet) 1 tab(s) by mouth Twice daily with meals Duration: 30 Days Refills: 1 Pickup at [facility] New clopidogrel (Plavix 75 mg oral tablet) 1 tab(s) by mouth Once a day Duration: 30 Days Refills: 11 Pickup at [facility] Unchanged acetaminophen (acetaminophen 325 mg oral capsule) 1 cap by mouth Every 6 hours as needed for as needed for pain Unchanged amLODIPine (amLODIPine 10 mg oral tablet) 1 tab(s) by mouth Every day Duration: 90 Days Take 1 tablet by mouth once daily. Unchanged docusate (docusate sodium 100 mg oral tablet) 1 tab(s) by mouth Two (2) times a day as needed for as needed for constipation Unchanged glimepiride (glimepiride 4 mg oral tablet) 1 tab(s) by mouth Once a day Take with food Unchanged insulin lispro (HumaLOG) (insulin lispro (Humalog) 100 units/ mL injectable solution) Sliding Scale Subcutaneous Four (4) times daily-before meals and at bedtime Unchanged lisinopril (lisinopril 20 mg oral tablet) 1 tab(s) by mouth Every day Duration: 90 Days TAKE 1 TABLET BY MOUTH EVERY DAY Unchanged magnesium hydroxide (Milk of Magnesia) 1,200 Milligram by mouth Three (3) times a day as needed for as needed for constipation Unchanged ondansetron (ondansetron 4 mg oral tablet) 1 tab(s) by mouth Every 8 hours as needed for Nausea/Vomiting Unchanged oxyCODONE (oxyCODONE 5 mg oral tablet ( IMMEDIATE release )) 0.5 tab(s) by mouth Every 6 hours as needed for as needed for pain Unchanged polyethylene glycol 3350 (Miralax Powder Packet) 17 gram(s) by mouth Once a day as needed for Constipation dissolve in 4 to 8 oz of beverage Unchanged potassium chloride (Potassium Chloride (Eqv-K-Tab) 20 mEq oral tablet, extended release) 1 tab(s) by mouth Once a day Take with food Unchanged sodium biphosphate-sodium phosphate (Fleet Enema 19 g-7 g rectal enema) 133 Milliliter in the rectum Once a day as needed for as needed for constipation Pharmacy Information [facility]: [address] [place], [place] [id number] [phone] What How Much When Comments Stop Taking hydroCHLOROthiazide (hydroCHLOROthiazide 12.5 mg oral capsule) 1 cap by mouth Once a day Duration: 90 Days Take 1 capsule by mouth once daily. Please take this list to your next doctor s visit. Bring all medications you take, including over the counter medications, herbals and other supplements with you to your doctor s visit. Patients and families are reminded to discard old lists and to update any records with all medication providers or retail pharmacies. Medication Leaflets clopidogrel (kloe PID oh grel) Plavix What is the most important information I should know about clopidogrel? You should not use this medicine if you have any active bleeding such as a stomach ulcer or bleeding in the brain. Clopidogrel increases your risk of bleeding, which can be severe or life-threatening. Call your doctor or seek emergency medical attention if you have bleeding that will not stop, if you have blood in your urine, black or bloody stools, or if you cough up blood or vomit that looks like coffee grounds. Do not stop taking clopidogrel without first talking to your doctor, even if you have signs of bleeding. Stopping clopidogrel may increase your risk of a heart attack or stroke. What is clopidogrel? Clopidogrel is used to lower your risk of having a stroke, blood clot, or serious heart problem after you've had a heart attack, severe chest pain (angina), or circulation problems. Clopidogrel may also be used for purposes not listed in this medication guide. What should I discuss with my healthcare provider before taking clopidogrel? You should not use clopidogrel if you are allergic to it, or if you have: any active bleeding; or a stomach ulcer or bleeding in the brain (such as from a head injury). Tell your doctor if you have ever had: an ulcer in your stomach or intestines; or a bleeding disorder or blood clotting disorder. Clopidogrel may not work as well if you have certain genetic factors that affect the breakdown of this medicine in your body. Your doctor may perform a blood test to make sure clopidogrel is right for you. This medicine is not expected to harm an unborn baby. However, taking clopidogrel within 1 week before childbirth can cause bleeding in the mother. Tell your doctor if you are or plan to become . You should not breastfeed while using this medicine. How should I take clopidogrel? Follow all directions on your prescription label and read all medication guides or instruction sheets. Use these medicines exactly as directed. Clopidogrel can be taken with or without food. Clopidogrel is sometimes taken together with aspirin. Take aspirin only if your doctor tells you to. Clopidogrel keeps your blood from coagulating (clotting) and can make it easier for you to bleed, even from a minor injury. Contact your doctor or seek emergency medical attention if you have any bleeding that will not stop. You may need to stop using clopidogrel for a short time before a surgery, medical procedure, or dental work. Any healthcare provider who treats you should know that you are taking clopidogrel. Do not stop taking clopidogrel without first talking to your doctor, even if you have signs of bleeding. Stopping the medicine could increase your risk of a heart attack or stroke. Store at room temperature away from moisture and heat. What happens if I miss a dose? Take the medicine as soon as you can, but skip the missed dose if it is almost time for your next dose. Do not take two doses at one time. What happens if I overdose? Seek emergency medical attention or call the Poison Help line at . Overdose can cause excessive bleeding. What should I avoid while taking clopidogrel? Avoid alcohol. It can increase your risk of stomach bleeding. Avoid activities that may increase your risk of bleeding or injury. Use extra care to prevent bleeding while shaving or brushing your teeth. If you also take aspirin: Ask a doctor or pharmacist before using medicines for pain, fever, swelling, or cold/flu symptoms. They may contain ingredients similar to aspirin (such as salicylates, ibuprofen, ketoprofen, or naproxen). Taking these products together can increase your risk of bleeding. What are the possible side effects of clopidogrel? Get emergency medical help if you have signs of an allergic reaction: hives; difficult breathing; swelling of your face, lips, tongue, or throat. Clopidogrel increases your risk of bleeding, which can be severe or life-threatening. Call your doctor or seek emergency medical attention if you have bleeding that will not stop, if you have blood in your urine, black or bloody stools, or if you cough up blood or vomit that looks like coffee grounds. Also call your doctor at once if you have: nosebleeds, pale skin, easy bruising, purple spots under your skin or in your mouth; jaundice (yellowing of your skin or eyes); fast heartbeats, shortness of breath; headache, fever, weakness, feeling tired; little or no urination; a seizure; low blood sugar--headache, hunger, sweating, irritability, dizziness, fast heart rate, and feeling anxious or shaky; or signs of a blood clot--sudden numbness or weakness, confusion, problems with vision or speech. Common side effects may include: bleeding. This is not a complete list of side effects and others may occur. Call your doctor for medical advice about side effects. You may report side effects to FDA at 7-454-ZVI-9460. What other drugs will affect clopidogrel? Sometimes it is not safe to use certain medications at the same time. Some drugs can affect your blood levels of other drugs you take, which may increase side effects or make the medications less effective. Tell your doctor about all your other medicines, especially: a stomach acid helium arc welder such as omeprazole, Nexium, or Prilosec; an antidepressant such as citalopram, fluoxetine, sertraline, Cymbalta, Effexor, Lexapro, Pristiq, or Prozac; rifampin; a blood thinner--warfarin, Coumadin, Jantoven; or NSAIDs (nonsteroidal anti-inflammatory drugs)--aspirin, ibuprofen (Advil, Motrin), naproxen (Aleve), celecoxib, diclofenac, indomethacin, meloxicam, and others. This list is not complete. Other drugs may affect clopidogrel, including prescription and isgx-upl-fiseoex medicines, vitamins, and herbal products. Not all possible drug interactions are listed here. Where can I get more information? Your pharmacist can provide more information about clopidogrel. Remember, keep this and all other medicines out of the reach of children, never share your medicines with others, and use this medication only for the indication prescribed. Every effort has been made to ensure that the information provided by [employer]. ('[employer]') is accurate, up-to-date, and complete, but no guarantee is made to that effect. Drug information contained herein may be time sensitive. [employer] information has been compiled for use by healthcare practitioners and consumers in the [place] and therefore [employer] does not warrant that uses outside of the [place] are appropriate, unless specifically indicated otherwise. [employer] drug information does not endorse drugs, diagnose patients or recommend therapy. [employer] drug information is an informational resource designed to assist licensed healthcare practitioners in caring for their patients and/or to serve consumers viewing this service as a supplement to, and not a substitute for, the expertise, skill, knowledge and judgment of healthcare practitioners. The absence of a warning for a given drug or drug combination in no way should be construed to indicate that the drug or drug combination is safe, effective or appropriate for any given patient. [employer] does not assume any responsibility for any aspect of healthcare administered with the aid of information [employer] provides. The information contained herein is not intended to cover all possible uses, directions, precautions, warnings, drug interactions, allergic reactions, or adverse effects. If you have questions about the drugs you are taking, check with your doctor, nurse or pharmacist. Copyright 4385-5112 David [employer]. Version: 18.01. Revision Date: 07/28/2020. Education Materials HEART CATHETERIZATION/PCI (groin) Discharge Instructions DIET INSTRUCTIONS Drink plenty of fluids for the next 48 hours to help your kidneys flush the heart cath dye out of your system ACTIVITIES May go up and down stairs CAREFULLY Do not drive car FOR 24 HOURS No heavy lifting GREATER THAN 10 POUNDS or pushing or straining FOR 2 DAYS Someone must stay with you at home after the procedure until the morning. BATHING/SHOWERING May tub bathe in 1 week May shower tomorrow WOUND CARE You will go home with a Band-Aid over your heart cath site. Keep a Band-Aid on for the next 24 hours and then leave open to air. Some degree of bruising and tenderness is normal around the heart cath site. It will take a while for any bruising to completely resolve. Keep your site clean and dry. You need to report the following to your vp product: Any draining or oozing from the site Any swelling at the site Any increased pain or tenderness at the site Any numbness in your leg where the procedure was done Any signs of infection IMPORTANT! CALL 911 FOR ANY BLEEDING OR SWELLING AT THE PROCEDURE SITE If there is any large amount of bleeding, you or someone else need to apply direct pressure to the site (just like the nurse did in the heart lab after your procedure). It is very important that you hold constant pressure. Do not release the pressure to check if the bleeding has stopped. You then need to be transported to the nearest emergency room. WATCH FOR SIGNS OF INFECTION (Usually appears 36-48 hours after surgery) A temperature above 100.5 Redness or swelling Increased pain Foul odor or drainage If you have any questions, please call your doctor at the number listed on your follow up instructions. Follow all instructions given to you by your physician Document Released: 04/16/2006 Document Revised: 04/02/2013 Document Reviewed: 04/17/2014 ExitCare Patient Information 2015 [employer]. This information is not intended to replace advice given to you by your health care provider. Make sure you discuss any questions you have with your health care provider. Additional Information VACCINATE! IT SAVES LIVES! Members of the community who have not yet received the COVID-19 vaccine and would like to receive it can visit one of [facility] vaccine clinics. There are many vaccine clinic locations within the [facility]. For locations and available times, please visit [email or web address].or io.gov/. It is important to note that some COVID mobile vaccine clinics are held outdoors and may be canceled in rainy or stormy conditions. To learn more about pediatric vaccinations (ages 5-11), we invite you to visit the [facility] webpage. [email or web address] To learn more about the COVID-19 vaccine, we invite you to visit the CDC website for a list of frequently asked questions.https://www.cdc.gov/cor onavirus/2019-ncov/vaccines/faq.h tml [facility] Patient Portal Access Instructions: Stay connected with your healthcare team and access your personal medical information anytime with the [facility] Patient Portal. Please follow the directions below to create your [facility] account: 1.Access the email account you provided upon registration to the hospital/physician office.2.Look for an invitation email from [facility].3.Open the email and access the invitation link: Accept Invitation to [facility].4.Fill in the required trejo to create your account. To access your account, visit [email or web address]. Click the blue button labeled Access Patient Portal and then log in with the username and password that you created in the steps above. You will be able to view your test results, lab results, a summary of your visits, upcoming appointments and more. There is also a convenient messaging option where you can send secure messages to your provider. In addition, you will have the ability to download any documents or summaries to your computer and/or send the information securely to a physician. Remember that your healthcare information is confidential, so carefully consider who you will allow to register on the [facility] Patient Portal for access to your information. You can also access the [facility] Patient Portal on the [facility] catalino. Simply click on Patient Portal and then log into your account. If you would like to receive a full copy of your medical records, please contact the [facility] Medical Records Department by calling [phone], Sunday through Sunday between 8 a.m. and 4:30 p.m. HOW TO SAFELY DISPOSE OF PRESCRIPTION MEDICATIONS Please use one of the following methods to safely dispose of your unused medications. 1.Use a drug disposal kit: the drug disposal pouch allows you to safely discard your old and unused drugs. Ask your nurse to give you one when you are discharged.2.Visit a local take-back location: Many local pharmacies and police departments have programs that collect old and unwanted prescription drugs. Call your local pharmacy or go to [email or web address] to find one close to you.3.Make use of household items: Use cat litter or old coffee grounds to dispose medications if other options are not available. Mix your drugs with these household products, seal them in an airtight container and throw it into the garbage. Call [facility]: [phone] to be sure your drugs can be disposed of in this way. Some medicines may require a different approach.4.Never flush your medications down the toilet. IF YOU HAVE BEEN PRESCRIBED AN OPIOID FOR PAIN If you have been prescribed an opioid (such as hydrocodone, oxycodone or morphine), it is critical to understand the possible side effects and risks of opioid pain medications. Even when taken as directed, opioids can have several side effects including: Tolerance, meaning you might need to take more of a medication for the same pain relief. Nausea, vomiting and/or constipation. Sleepiness, dizziness, dry mouth, confusion, depression or itching. Physical dependence, meaning you have withdrawal symptoms when a medication is stopped, can develop within a few days. KNOW YOUR RESPONSIBILITIES It is important to know exactly how much and how often to take the opioid pain medications you are prescribed. Never take opioids in higher amounts or more often than prescribed. Do not combine opioids with alcohol or other drugs that cause drowsiness, such as benzodiazepines, also known as benzos, including diazepam and alprazolam, muscle relaxants or sleep aids. Never sell or share prescription opioids. This is illegal. Store opioids in a secure place and out of reach of others (including children, family, friends and visitors). The last page of this document has been signed and retained as a CHART COPY. Signatures Patient Education Materials 3- Heart Cath/PCI groin (01/2018)(CUSTOM) Medication Leaflets clopidogrel My discharge plan and instructions have been reviewed and explained to me and I,AZAR TRIPLETT understand my current condition and have read and understand these discharge instructions. I have received a written copy of the plan/instructions. If I have questions, I am aware that I should contact my doctor. 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 Patient was lying comfortably in bed and in no acute distress. Patient denies shortness of breath, chest pain and palpitations. No complaints at this time. Objective Vitals and Measurements T: 36.5 C (Oral) TMIN: 36.5 C (Oral) TMAX: 36.9 C (Oral) HR: 79(Monitored) RR: 16 BP: 130/80 SpO2: 98% HT: 165.1 cm WT: 77.5 kg BMI: 28.43 Intake and Output 7AM Yesterday to 7AM Today Intake and Output (Last 24 hours) Intake Oral Intake 50.00 Output Urine Voided 600.00 Urine Count 3.00 Total Summary Total Intake 50.00 Total Output 600.00 Fluid Balance -550.00 Physical Exam GENERAL: Awake, alert, comfortable appearing, in no acute distress. HEENT: Head is normocephalic and atraumatic. Pupils are equal, round, and reactive to light. Extraocular muscles are intact. No nasal discharge. No facial trauma. Intraoral exam shows moist mucous membranes with no tonsillar enlargement or exudate. Tympanic membranes are normal. The canals are clear. NECK: Supple with no cervical lymphadenopathy No meningismus. No goiter. HEART: 2/6 systolic murmer. aortic area LUNGS: Equal breath sounds bilaterally with no wheezing, rales, or rhonchi. There is no chest wall tenderness or instability. ABDOMEN: No external sign of injury. Bowel sounds are present. Abdomen is soft, nontender. No rebound, no guarding, no rigidity. There are no palpable masses. There is no flank pain on exam. EXTREMITIES: Strong peripheral pulses. There is no clubbing, no cyanosis, and no edema. SKIN: No rash. Weight Dosing Weight: 77.5 kg (07/06/23) Dosing Weight: 77.5 kg (07/02/23) Medications Medications (20) Active Scheduled: (8) aspirin 81 mg Chewable 81 mg 1 tab(s), Oral, qDayM atorvastatin 40 mg tablet 40 mg 1 tab(s), Oral, qDay carvedilol 3.125 mg tablet 3.125 mg 1 tab(s), Oral, BIDM clopidogrel 75 mg Tablet 75 mg 1 tab(s), Oral, qDay enoxaparin 40 mg/ 0.4mL syringe 40 mg 0.4 mL, Subcutaneous, qDay insulin lispro 100 units/mL Soln (3 mL) Give 0-5 units/dose, Subcutaneous, TIDAC lisinopril 20 mg tablet 20 mg 1 tab(s), Oral, qDay No metformin for 48 hrs post contrast 1 EA, Miscellaneous, Unscheduled Continuous: (0) PRN: (12) acetaminophen 325 mg Tablet 325 mg 1 tab(s), Oral, q6h dextrose 50% Solution Disp syringe 50 mL 12.5 gram(s) 25 mL, IV Push, AsDirected docusate sodium 100 mg Capsule 100 mg 1 cap(s), Oral, BID magnesium sulfate 4 gram(s)/100mL PMX 4 g 100 mL, IV Piggyback, AsDirected magnesium sulfate 50% (500mg/mL) 6 g 12 mL, IV Piggyback, AsDirected magnesium sulfate PMX 2 g 50 mL, IV Piggyback, AsDirected oxycodone 5 mg tablet (immediate release) 2.5 mg 0.5 tab(s), Oral, q6h polyethylene glycol 3350 - UD packet 17 gram(s) 15 mL, Oral, qDay potassium chloride (PMX) 20 mEq/100 mL 20 mEq 100 mL, IV Piggyback, AsDirected potassium chloride 20 mEq ER tablet 20 mEq 1 tab(s), Oral, AsDirected potassium chloride 20 mEq ER tablet 40 mEq 2 tab(s), Oral, AsDirected potassium chloride 20 mEq ER tablet 40 mEq 2 tab(s), Oral, AsDirected Lab Results 07/05 04:13 WBC: 6.9 Hgb: 10.3 L Hct: 30.1 L Platelet: 215 Neutrophil %: 64.0 Glucose Level: 102 Sodium Level: 139 Potassium Level: 3.6 BUN: 15.0 Creatinine Lvl (s): 0.95 07/04 04:07 WBC: 7.4 Hgb: 10.2 L Hct: 30.1 L Platelet: 215 Neutrophil %: 62.9 Glucose Level: 127 H Sodium Level: 140 Potassium Level: 3.6 BUN: 11.0 Creatinine Lvl (s): 0.91 EKG Electrocardiogram (EKG) - InProcess -- 07/05/23 14:57:00 EST Assessment/Plan Syncope likely vasovagal Elevated troponin Type II AZ Mild to moderate aortic stenosis- valve area by VTI is 1.2 cm New ischemia on ECG Hypertension Diabetes Plan Orthostatic vitals negative Troponins down trended from 78-76 and ECG 07/04/23 showed Atrial fibrillation, ventricular premature complex. D-dimer 2334, given patient's recent back surgery this may be the cause of elevated D-dimer. Patient's Wells score is 1.5. Will hold off on ordering lower extremity Dopplers at this time. Patient had a recent echo done on June 14 before his surgery on June 19. Which showed EF 40 to 45%, entire anterior wall, basal and mid anterior lateral wall and apical lateral segment are abnormal. Impaired relaxation pattern of left ventricular diastolic filling. Moderate to severe aortic valve stenosis. Moderate to severe aortic valve cusp calcification. Mild aortic valve regurgitation. Stress test [07/04/2023] showed enlarged and dilated appearing left ventricle with reduced systolic function EF 39%. Large size high-grade anterior lateral/apical tracer defect associated with wall motion/thickening abnormality is compatible with prior myocardial infarction/scar. A very small amount of reversibility may be present. Left heart cath done yesterday with Dr. Nowak. PCI to left circumference was done yesterday and patient will go for staged PCI to LAD today. Spoke to patient's surgeon Dr. Page from [facility] who did his back surgery on [06/19/2023] regarding starting DAPT and he is in agreement with the plan. Yesterday patient did go into A-fib, he is currently in sinus rhythm. He is not on blood thinners. Will discuss starting Coumadin on discharge. Will continue with aspirin 81 mg, atorvastatin 40 mg and Coreg 3.125 mg twice daily. If patient has elevated blood pressures can consider starting spironolactone. Restart home medications as appropriate Keep potassium greater than 4 and magnesium greater than 2 Check TSH 4.67, A1c 7.6, lipid profile pending, magnesium 1.9 Patient is on Glimepiride 4mg at home, will hold oral hypoglycemics. Continue low-dose sliding scale. We will continue to monitor DVT prophylaxis Lovenox CODE STATUS full code Diet n.p.o. Digitally Signed by MARIN PEREZ MD on 07/06/2023 12:55 PM [facility] 07-06-2023 Note SINUS RHYTHM REPOL ABNRM SUGGESTS ISCHEMIA, ANTEROLATERAL Electronic Signature: SHANE GROVE MD 07/07/2023 19:08:06 [facility] 07-06-2023 Progress note Date of Service 07/06/2023 Subjective 77-year-old male was seen and examined at bedside this morning. Patient was lying comfortably in bed and in no acute distress. Patient denies shortness of breath, chest pain and palpitations. No complaints at this time. Objective Vitals and Measurements T: 36.5 C (Oral) TMIN: 36.5 C (Oral) TMAX: 36.9 C (Oral) HR: 79(Monitored) RR: 16 BP: 130/80 SpO2: 98% HT: 165.1 cm WT: 77.5 kg BMI: 28.43 Intake and Output 7AM Yesterday to 7AM Today Intake and Output (Last 24 hours) Intake Oral Intake 50.00 Output Urine Voided 600.00 Urine Count 3.00 Total Summary Total Intake 50.00 Total Output 600.00 Fluid Balance -550.00 Physical Exam GENERAL: Awake, alert, comfortable appearing, in no acute distress. HEENT: Head is normocephalic and atraumatic. Pupils are equal, round, and reactive to light. Extraocular muscles are intact. No nasal discharge. No facial trauma. Intraoral exam shows moist mucous membranes with no tonsillar enlargement or exudate. Tympanic membranes are normal. The canals are clear. NECK: Supple with no cervical lymphadenopathy No meningismus. No goiter. HEART: 2/6 systolic murmer. aortic area LUNGS: Equal breath sounds bilaterally with no wheezing, rales, or rhonchi. There is no chest wall tenderness or instability. ABDOMEN: No external sign of injury. Bowel sounds are present. Abdomen is soft, nontender. No rebound, no guarding, no rigidity. There are no palpable masses. There is no flank pain on exam. EXTREMITIES: Strong peripheral pulses. There is no clubbing, no cyanosis, and no edema. SKIN: No rash. Weight Dosing Weight: 77.5 kg (07/06/23) Dosing Weight: 77.5 kg (07/02/23) Medications Medications (20) Active Scheduled: (8) aspirin 81 mg Chewable 81 mg 1 tab(s), Oral, qDayM atorvastatin 40 mg tablet 40 mg 1 tab(s), Oral, qDay carvedilol 3.125 mg tablet 3.125 mg 1 tab(s), Oral, BIDM clopidogrel 75 mg Tablet 75 mg 1 tab(s), Oral, qDay enoxaparin 40 mg/ 0.4mL syringe 40 mg 0.4 mL, Subcutaneous, qDay insulin lispro 100 units/mL Soln (3 mL) Give 0-5 units/dose, Subcutaneous, TIDAC lisinopril 20 mg tablet 20 mg 1 tab(s), Oral, qDay No metformin for 48 hrs post contrast 1 EA, Miscellaneous, Unscheduled Continuous: (0) PRN: (12) acetaminophen 325 mg Tablet 325 mg 1 tab(s), Oral, q6h dextrose 50% Solution Disp syringe 50 mL 12.5 gram(s) 25 mL, IV Push, AsDirected docusate sodium 100 mg Capsule 100 mg 1 cap(s), Oral, BID magnesium sulfate 4 gram(s)/100mL PMX 4 g 100 mL, IV Piggyback, AsDirected magnesium sulfate 50% (500mg/mL) 6 g 12 mL, IV Piggyback, AsDirected magnesium sulfate PMX 2 g 50 mL, IV Piggyback, AsDirected oxycodone 5 mg tablet (immediate release) 2.5 mg 0.5 tab(s), Oral, q6h polyethylene glycol 3350 - UD packet 17 gram(s) 15 mL, Oral, qDay potassium chloride (PMX) 20 mEq/100 mL 20 mEq 100 mL, IV Piggyback, AsDirected potassium chloride 20 mEq ER tablet 20 mEq 1 tab(s), Oral, AsDirected potassium chloride 20 mEq ER tablet 40 mEq 2 tab(s), Oral, AsDirected potassium chloride 20 mEq ER tablet 40 mEq 2 tab(s), Oral, AsDirected Lab Results 07/05 04:13 WBC: 6.9 Hgb: 10.3 L Hct: 30.1 L Platelet: 215 Neutrophil %: 64.0 Glucose Level: 102 Sodium Level: 139 Potassium Level: 3.6 BUN: 15.0 Creatinine Lvl (s): 0.95 03 04:07 WBC: 7.4 Hgb: 10.2 L Hct: 30.1 L Platelet: 215 Neutrophil %: 62.9 Glucose Level: 127 H Sodium Level: 140 Potassium Level: 3.6 BUN: 11.0 Creatinine Lvl (s): 0.91 EKG Electrocardiogram (EKG) - InProcess -- 07/05/23 14:57:00 EST Assessment/Plan Syncope likely vasovagal Elevated troponin Type II AZ Mild to moderate aortic stenosis- valve area by VTI is 1.2 cm New ischemia on ECG Hypertension Diabetes Plan Orthostatic vitals negative Troponins down trended from 78-76 and ECG 07/04/23 showed Atrial fibrillation, ventricular premature complex. D-dimer 2334, given patient's recent back surgery this may be the cause of elevated D-dimer. Patient's Wells score is 1.5. Will hold off on ordering lower extremity Dopplers at this time. Patient had a recent echo done on June 14 before his surgery on June 19. Which showed EF 40 to 45%, entire anterior wall, basal and mid anterior lateral wall and apical lateral segment are abnormal. Impaired relaxation pattern of left ventricular diastolic filling. Moderate to severe aortic valve stenosis. Moderate to severe aortic valve cusp calcification. Mild aortic valve regurgitation. Stress test [07/04/2023] showed enlarged and dilated appearing left ventricle with reduced systolic function EF 39%. Large size high-grade anterior lateral/apical tracer defect associated with wall motion/thickening abnormality is compatible with prior myocardial infarction/scar. A very small amount of reversibility may be present. Left heart cath done yesterday with Dr. Nowak. PCI to left circumference was done yesterday and patient will go for staged PCI to LAD today. Spoke to patient's surgeon Dr. Page from [facility] who did his back surgery on [06/19/2023] regarding starting DAPT and he is in agreement with the plan. Yesterday patient did go into A-fib, he is currently in sinus rhythm. He is not on blood thinners. Will discuss starting Coumadin on discharge. Will continue with aspirin 81 mg, atorvastatin 40 mg and Coreg 3.125 mg twice daily. If patient has elevated blood pressures can consider starting spironolactone. Restart home medications as appropriate Keep potassium greater than 4 and magnesium greater than 2 Check TSH 4.67, A1c 7.6, lipid profile pending, magnesium 1.9 Patient is on Glimepiride 4mg at home, will hold oral hypoglycemics. Continue low-dose sliding scale. We will continue to monitor DVT prophylaxis Lovenox CODE STATUS full code Diet n.p.o. Digitally Signed by MARIN PEREZ MD on 07/06/2023 12:55 PM [facility] 07-06-2023 Note Date of Service 07/06/23 Reason for Consultation Bedside RN concerned with abdomen lateral end of incision. Skin Team Findings Vitals and Measurements T: 36.5 C (Oral) TMIN: 36.5 C (Oral) TMAX: 36.9 C (Oral) HR: 79(Monitored) RR: 16 BP: 130/80 SpO2: 98% HT: 165.1 cm WT: 77.5 kg BMI: 28.43 Pressure Area Details No pressure injuries noted. ------Incision/Wound------ Abdomen Left Anterior - Incision, Wound Dressing/Activity: Open to air Abdomen Left Anterior - Incision, Wound Surrounding Tissue: Normal Abdomen Left Anterior - Skin Abnormality Color: Other: lateral end crusting noted Abdomen Left Anterior - Skin Abnormality Type: Surgical incision Abdomen Left Anterior - Wound Edge: Approximated Abdomen Left Anterior - Wound Status: No complications Back Lower, Midline - Incision, Wound Cleansing: Cleaned with normal saline Back Lower, Midline - Incision, Wound Dressing Assessment: Drainage present Back Lower, Midline - Incision, Wound Dressing/Activity: Changed Back Lower, Midline - Incision, Wound Dressing: Foam Back Lower, Midline - Incision, Wound Surrounding Tissue: Moist Back Lower, Midline - Skin Abnormality Color: Mountain, Yellow, Other: distal end minimal slough noted Back Lower, Midline - Skin Abnormality Pattern: Linear Back Lower, Midline - Skin Abnormality Type: Surgical incision Back Lower, Midline - Wound Associated Pain: None Back Lower, Midline - Wound Exudate Amount: Moderate Back Lower, Midline - Wound Exudate Odor: None Back Lower, Midline - Wound Exudate Type: Serous Back Lower, Midline - Wound Status: No complications ------Incision/Wound Measurements------ Distal slough area measured: Back Lower, Midline - Incision, Wound Depth: 0.1 cm Back Lower, Midline - Incision, Wound Length: 2 cm Back Lower, Midline - Incision, Wound Width: 0.3 cm Assessments and Recommendations ------Assessments------ Current Skin/Wound Interventions: Prophylactic foam, Transparent silicone dressing ------Recommendations------ Recommended Skin/Wound Interventions: Seat cushion, Transparent silicone dressing, Turn and reposition every 2 hours, Proposed orders sent to physician, Other: Aquacel ag & foam Q 3 day to lower mid back incision, d/c once healed Education Individuals Taught: Patient Learning Readiness: Willing to learn Barriers to Learning: None evident Teaching Method: Explanation Problem List/Past Medical History Ongoing Foot drop, left Hearing loss of right ear due to cerumen impaction Heart murmur Hypertension Left knee pain Leg cramps Neuropathy of left foot Peripheral vascular disease Right foot pain Spinal stenosis Type 2 diabetes mellitus Historical No qualifying data Digitally Signed by LOUIS Reyes on 07/06/2023 08:23 AM [facility] 07-05-2023 Note SINUS RHYTHM REPOL ABNRM SUGGESTS ISCHEMIA, ANTEROLATERAL Electronic Signature: SHANE GROVE MD 07/06/2023 18:35:36 [facility] 07-05-2023 Progress note Date of Service 07/05/2023 Subjective 77-year-old male was seen and examined at bedside this morning. Patient was sitting comfortably in his chair and in no acute distress. Patient's family at bedside. Patient denies shortness of breath, palpitations or chest pain this morning. Patient aware he will be going for a left heart cath. No questions or concerns at this time. Objective Vitals and Measurements T: 36.5 C (Oral) TMIN: 36.4 C (Oral) TMAX: 36.8 C (Oral) HR: 80(Monitored) RR: 16 BP: 142/74 SpO2: 96% Intake and Output 7AM Yesterday to 7AM Today Intake and Output (Last 24 hours) Intake Oral Intake 450.00 Output Urine Count 6.00 Total Summary Total Intake 450.00 Total Output 0.00 Fluid Balance 450.00 Physical Exam GENERAL: Awake, alert, comfortable appearing, in no acute distress. HEENT: Head is normocephalic and atraumatic. Pupils are equal, round, and reactive to light. Extraocular muscles are intact. No nasal discharge. No facial trauma. Intraoral exam shows moist mucous membranes with no tonsillar enlargement or exudate. Tympanic membranes are normal. The canals are clear. NECK: Supple with no cervical lymphadenopathy No meningismus. No goiter. HEART: 2/6 systolic murmer. aortic area LUNGS: Equal breath sounds bilaterally with no wheezing, rales, or rhonchi. There is no chest wall tenderness or instability. ABDOMEN: No external sign of injury. Bowel sounds are present. Abdomen is soft, nontender. No rebound, no guarding, no rigidity. There are no palpable masses. There is no flank pain on exam. EXTREMITIES: Strong peripheral pulses. There is no clubbing, no cyanosis, and no edema. SKIN: No rash. Weight Dosing Weight: 77.5 kg (07/03/23) Dosing Weight: 77.5 kg (07/02/23) Medications Medications (18) Active Scheduled: (6) aspirin 81 mg Chewable 81 mg 1 tab(s), Oral, qDayM atorvastatin 40 mg tablet 40 mg 1 tab(s), Oral, qDay carvedilol 3.125 mg tablet 3.125 mg 1 tab(s), Oral, BIDM enoxaparin 40 mg/ 0.4mL syringe 40 mg 0.4 mL, Subcutaneous, qDay insulin lispro 100 units/mL Soln (3 mL) Give 0-5 units/dose, Subcutaneous, TIDAC lisinopril 20 mg tablet 20 mg 1 tab(s), Oral, qDay Continuous: (0) PRN: (12) acetaminophen 325 mg Tablet 325 mg 1 tab(s), Oral, q6h dextrose 50% Solution Disp syringe 50 mL 12.5 gram(s) 25 mL, IV Push, AsDirected docusate sodium 100 mg Capsule 100 mg 1 cap(s), Oral, BID magnesium sulfate 4 gram(s)/100mL PMX 4 g 100 mL, IV Piggyback, AsDirected magnesium sulfate 50% (500mg/mL) 6 g 12 mL, IV Piggyback, AsDirected magnesium sulfate PMX 2 g 50 mL, IV Piggyback, AsDirected oxycodone 5 mg tablet (immediate release) 2.5 mg 0.5 tab(s), Oral, q6h polyethylene glycol 3350 - UD packet 17 gram(s) 15 mL, Oral, qDay potassium chloride (PMX) 20 mEq/100 mL 20 mEq 100 mL, IV Piggyback, AsDirected potassium chloride 20 mEq ER tablet 20 mEq 1 tab(s), Oral, AsDirected potassium chloride 20 mEq ER tablet 40 mEq 2 tab(s), Oral, AsDirected potassium chloride 20 mEq ER tablet 40 mEq 2 tab(s), Oral, AsDirected Lab Results 07/04 04:07 WBC: 7.4 Hgb: 10.2 L Hct: 30.1 L Platelet: 215 Neutrophil %: 62.9 Glucose Level: 127 H Sodium Level: 140 Potassium Level: 3.6 BUN: 11.0 Creatinine Lvl (s): 0.91 07/03 06:02 WBC: 7.0 Hgb: 9.9 L Hct: 29.3 L Platelet: 233 Neutrophil %: 67.0 Glucose Level: 122 H Sodium Level: 142 Potassium Level: 4.0 BUN: 11.0 Creatinine Lvl (s): 0.87 Imaging Results and Diagnostics 2D echocardiogram 06/14/2023 Patient had a recent echo done on June 14 before his surgery on June 19. Which showed EF 40 to 45%, entire anterior wall, basal and mid anterior lateral wall and apical lateral segment are abnormal. Impaired relaxation pattern of left ventricular diastolic filling. Moderate to severe aortic valve stenosis. Moderate to severe aortic valve cusp calcification. Mild aortic valve regurgitation. EKG Electrocardiogram (EKG) - InProcess -- 07/04/23 17:40:00 EST Assessment/Plan Syncope likely vasovagal Elevated troponin Type II [place] Mild to moderate aortic stenosis- valve area by VTI is 1.2 cm New ischemia on ECG Hypertension Diabetes Plan Orthostatic vitals negative Troponins down trended from 78-76 and ECG 07/04/23 showed Atrial fibrillation, ventricular premature complex. D-dimer 4, given patient's recent back surgery this may be the cause of elevated D-dimer. Patient's Wells score is 1.5. Will hold off on ordering lower extremity Dopplers at this time. Patient had a recent echo done on June 14 before his surgery on June 19. Which showed EF 40 to 45%, entire anterior wall, basal and mid anterior lateral wall and apical lateral segment are abnormal. Impaired relaxation pattern of left ventricular diastolic filling. Moderate to severe aortic valve stenosis. Moderate to severe aortic valve cusp calcification. Mild aortic valve regurgitation. Stress test [07/04/2023] showed enlarged and dilated appearing left ventricle with reduced systolic function EF 39%. Large size high-grade anterior lateral/apical tracer defect associated with wall motion/thickening abnormality is compatible with prior myocardial infarction/scar. A very small amount of reversibility may be present. Left heart cath ordered for today with Dr. Nowak. Patient is in agreement. Spoke to patient's surgeon Dr. Page from [facility] who did his back surgery on [06/19/2023] regarding starting DAPT if stents need to be placed during left heart cath. He is in agreement with the plan. If patient needs to be stented we will have a conversation regarding antiplatelet at that time. Overnight patient did go into A-fib, he is not currently on blood thinners. Discuss starting Coumadin on discharge. Will continue with aspirin 81 mg, atorvastatin 40 mg and Coreg 3.125 mg twice daily. If patient has elevated blood pressures can consider starting spironolactone. Restart home medications as appropriate Keep potassium greater than 4 and magnesium greater than 2 Check TSH 4.67, A1c 7.6, lipid profile pending, magnesium 1.9 Patient is on Glimepiride 4mg at home, will hold oral hypoglycemics. Started low-dose sliding scale. We will continue to monitor DVT prophylaxis Lovenox CODE STATUS full code Diet n.p.o. Digitally Signed by MARIN PEREZ MD on 07/05/2023 12:36 PM Digitally Signed by ALISSA BRITT MD [facility] 07-04-2023 Note Date of Service Date: July 04, 2023 Procedure: Lexiscan (regadenoson) chemical stress test Patient underwent a pharmacologic stress test using regadenoson. Total regadenoson dose of 0.4 mg was given as per protocol. The patient had a baseline heart rate of 76 bpm, which peaked at 98 bpm. This represents 63% of the age-predicted maximal heart rate. The patient had a baseline blood pressure of 148/65 mmHg and it changed to 107/46 mmHg after the regadenoson administration. The patient did experience flushing, which all resolved at the end of the test. The patient's baseline EKG showed normal sinus rhythm T inversions in I, aVL, V2 to V6. During the stress, there were no EKG changes suggestive of ischemia. There were single PVCs after the Lexiscan infusion and during recovery. IMPRESSION: EKG portion of the Lexiscan stress test is negative for inducible ischemia. The results of the nuclear portion of the Lexiscan stress test will be reported separately. The EKGs were also reviewed by the attending physician. See addendum to this note by the attending physician for additional comments. Digitally Signed by CHAIM SHEPHERD MD on 07/04/2023 01:05 PM [facility] 07-04-2023 Note ATRIAL FIBRILLATION VENTRICULAR PREMATURE COMPLEX REPOL ABNRM SUGGESTS ISCHEMIA, DIFFUSE LEADS Electronic Signature: SHANE GROVE MD 07/06/2023 18:35:28 [facility] 07-04-2023 Progress note Date of Service 07/04/2023 Subjective 77-year-old male was seen and examined at bedside this morning. Patient was laying comfortably in bed and in no acute distress. Patient denied any chest pain, shortness of breath, palpitations today. Patient is agreeable to getting a left heart cath given abnormal stress test. Will order left heart cath tomorrow. No other complaints at this time. Objective Vitals and Measurements T: 36.8 C (Oral) TMIN: 36.4 C (Oral) TMAX: 37.0 C (Oral) HR: 80(Monitored) RR: 18 BP: 166/87 SpO2: 97% Intake and Output 7AM Yesterday to 7AM Today Intake and Output (Last 24 hours) Intake Oral Intake 800.00 Output Urine Voided 1225.00 Stool Count 0.00 Urine Count 4.00 Total Summary Total Intake 800.00 Total Output 1225.00 Fluid Balance -425.00 Physical Exam GENERAL: Awake, alert, comfortable appearing, in no acute distress. HEENT: Head is normocephalic and atraumatic. Pupils are equal, round, and reactive to light. Extraocular muscles are intact. No nasal discharge. No facial trauma. Intraoral exam shows moist mucous membranes with no tonsillar enlargement or exudate. Tympanic membranes are normal. The canals are clear. NECK: Supple with no cervical lymphadenopathy No meningismus. No goiter. HEART: 2/6 systolic murmer. aortic area LUNGS: Equal breath sounds bilaterally with no wheezing, rales, or rhonchi. There is no chest wall tenderness or instability. ABDOMEN: No external sign of injury. Bowel sounds are present. Abdomen is soft, nontender. No rebound, no guarding, no rigidity. There are no palpable masses. There is no flank pain on exam. EXTREMITIES: Strong peripheral pulses. There is no clubbing, no cyanosis, and no edema. SKIN: No rash. Weight Dosing Weight: 77.5 kg (07/03/23) Dosing Weight: 77.5 kg (07/02/23) Medications Medications (17) Active Scheduled: (5) aspirin 81 mg Chewable 81 mg 1 tab(s), Oral, qDayM atorvastatin 40 mg tablet 40 mg 1 tab(s), Oral, qDay enoxaparin 40 mg/ 0.4mL syringe 40 mg 0.4 mL, Subcutaneous, qDay insulin lispro 100 units/mL Soln (3 mL) Give 0-5 units/dose, Subcutaneous, TIDAC lisinopril 20 mg tablet 20 mg 1 tab(s), Oral, qDay Continuous: (0) PRN: (12) acetaminophen 325 mg Tablet 325 mg 1 tab(s), Oral, q6h dextrose 50% Solution Disp syringe 50 mL 12.5 gram(s) 25 mL, IV Push, AsDirected docusate sodium 100 mg Capsule 100 mg 1 cap(s), Oral, BID magnesium sulfate 4 gram(s)/100mL PMX 4 g 100 mL, IV Piggyback, AsDirected magnesium sulfate 50% (500mg/mL) 6 g 12 mL, IV Piggyback, AsDirected magnesium sulfate PMX 2 g 50 mL, IV Piggyback, AsDirected oxycodone 5 mg tablet (immediate release) 2.5 mg 0.5 tab(s), Oral, q6h polyethylene glycol 3350 - UD packet 17 gram(s) 15 mL, Oral, qDay potassium chloride (PMX) 20 mEq/100 mL 20 mEq 100 mL, IV Piggyback, AsDirected potassium chloride 20 mEq ER tablet 20 mEq 1 tab(s), Oral, AsDirected potassium chloride 20 mEq ER tablet 40 mEq 2 tab(s), Oral, AsDirected potassium chloride 20 mEq ER tablet 40 mEq 2 tab(s), Oral, AsDirected Lab Results 07/03 06:02 WBC: 7.0 Hgb: 9.9 L Hct: 29.3 L Platelet: 233 Neutrophil %: 67.0 Glucose Level: 122 H Sodium Level: 142 Potassium Level: 4.0 BUN: 11.0 Creatinine Lvl (s): 0.87 03/05 05:10 Glucose Level: 120 H Sodium Level: 140 Potassium Level: 3.2 L BUN: 10.0 Creatinine Lvl (s): 0.84 EKG No qualifying data available. Assessment/Plan Syncope likely vasovagal Elevated troponin Type II AZ Mild to moderate aortic stenosis- valve area by VTI is 1.2 cm New ischemia on ECG Hypertension Diabetes DVT prophylaxis CODE STATUS Troponins downtrending from 78-76 and ECG shows sinus rhythm, abnormal T, consider ischemia, lateral leads Orthostats pending D-dimer 2333, given patient's recent back surgery this may be the cause of elevated D-dimer. Patient's Wells score is 1.5. Will hold off on ordering lower extremity Dopplers at this time. Patient had a recent echo done on June 14 before his surgery on June 19. Which showed EF 40 to 45%, entire anterior wall, basal and mid anterior lateral wall and apical lateral segment are abnormal. Impaired relaxation pattern of left ventricular diastolic filling. Moderate to severe aortic valve stenosis. Moderate to severe aortic valve cusp calcification. Mild aortic valve regurgitation. We will order stress test today which showed enlarged and dilated appearing left ventricle with reduced systolic function EF 39%. Large size high-grade anterior lateral/apical tracer defect associated with wall motion/thickening abnormality is compatible with prior myocardial infarction/scar. A very small amount of reversibility may be present Will order left heart cath for tomorrow with Dr. Nowak. Patient is in agreement. He will be n.p.o. after midnight. Spoke to patient's surgeon Dr. Page from [facility] who did his back surgery on [06/19/2023] regarding starting DAPT if stents need to be placed during left heart cath. He is in agreement with the plan. We will start aspirin 81 mg, atorvastatin 40 mg and Coreg 3.125 mg twice daily today. If patient has elevated blood pressures can consider starting spironolactone. Restart home medications as appropriate Keep potassium greater than 4 and magnesium greater than 2 Check TSH 4.67, A1c 7.6, lipid profile pending, magnesium 1.9 Patient is on Glimepiride 4mg at home, will hold oral hypoglycemics. Started low-dose sliding scale. We will continue to monitor DVT prophylaxis Lovenox CODE STATUS full code Diet n.p.o. Digitally Signed by MARIN PEREZ MD on 07/04/2023 02:41 PM Digitally Signed by MARIN PEREZ MD on 07/04/2023 02:42 PM Digitally Signed by MARIN PEREZ MD on 07/04/2023 03:05 PM Digitally Signed by MARIN PEREZ MD on 07/04/2023 05:39 PM Digitally Signed by ALISSA BRITT MD [facility] 07-04-2023 Note Date of Service Date: July 04, 2023 Procedure: Lexiscan (regadenoson) chemical stress test Patient underwent a pharmacologic stress test using regadenoson. Total regadenoson dose of 0.4 mg was given as per protocol. The patient had a baseline heart rate of 76 bpm, which peaked at 98 bpm. This represents 63% of the age-predicted maximal heart rate. The patient had a baseline blood pressure of 148/65 mmHg and it changed to 107/46 mmHg after the regadenoson administration. The patient did experience flushing, which all resolved at the end of the test. The patient's baseline EKG showed normal sinus rhythm T inversions in I, aVL, V2 to V6. During the stress, there were no EKG changes suggestive of ischemia. There were single PVCs after the Lexiscan infusion and during recovery. IMPRESSION: EKG portion of the Lexiscan stress test is negative for inducible ischemia. The results of the nuclear portion of the Lexiscan stress test will be reported separately. The EKGs were also reviewed by the attending physician. See addendum to this note by the attending physician for additional comments. Digitally Signed by CHAIM SHEPHERD MD on 07/04/2023 01:05 PM [facility] 07-04-2023 Note ORIGINAL EXAMINATION: CARDIAC SPECT07/04/2023 9:43 am CARDIAC SPECT Lexiscan Stress Cardiac Gated SPECT/CT, Stress/Rest Clinical Statement: Elevated troponins, syncope TECHNIQUE: Lexiscan dose: 0.4 mg IV Radiopharmaceutical (rest and stress doses): Tc-99m sestamibi IV 7.9 and 25.6 mCi SPECT acquisition and processing: Images reconstructed into short, vertical long, and horizontal long axis planes. Wall motion evaluation and quantitative LVEF assessment. Concurrent low-dose CT for attenuation correction. COMPARISON: No prior MPI studies available for comparison. HISTORY: ORDERING SYSTEM PROVIDED HISTORY: Reason for Exam: Elevated troponins, syncope FINDINGS: TID ratio: 1.25. EDV: 144 mL. The left ventricle appears enlarged and dilated. Low-dose CT reveals no pericardial or pleural effusion. There are prominent mediastinal calcified nodes. There also coronary and vascular calcifications and/or stents. Perfusion images reveal a large size, high-grade anterolateral tracer deficit with minimal to very small reversibility on rest images. This area is associated with wall motion/thickening abnormality and is compatible with prior myocardial infarction/scar. Quantitatively, the summed stress score is 27, summed rest score is 17 with a summed difference score of 6 with an estimated 38% of left ventricular myocardium affected at stress on attenuation corrected imaging. Quantitatively insignificant inferior wall tracer decrease resolving with attenuation correction could be secondary to diaphragmatic soft tissue attenuation. Additionally, there is extracardiac activity located inferiorly and laterally which may have contributed to reconstruction artifact. Gated wall motion evaluation reveals no regional or global hypokinesis. The calculated LVEF is reduced, 39%. IMPRESSION: Enlarged and dilated appearing left ventricle with reduced systolic function; calculated LVEF 39%. Large size, high-grade anterolateral/apical tracer deficit associated with wall motion/thickening abnormality is compatible with prior myocardial infarction/scar. A very small amount of reversibility may be present although, not conclusive. No prior MPI studies available for comparison. Interpreted by: Bret Snatos Preliminary Report By: Bret Santos Electronically signed By Bret Santos Dictated Date: 07/04/2023 1:04:37 PM Prelim Date: 07/04/2023 1:31:23 PM Sign Date: 07/04/2023 1:31:23 PM Ordering Provider: CHARLINE ROGERS [facility] 07-03-2023 History and physical note Date of Service 07/02/2023 Chief Complaint pt was at a post op apt for back surg and had a near syncopal episode. BG of 245 History of Present Illness 77-year-old male with history of type 2 diabetes, peripheral vascular disease, hypertension presenting for assessment of syncope.Patient had recent back surgery and is currently in a correction. While at follow-up appointment with surgeon today he was standing to have his sutures removed. He then felt dizzy and had to sit in a chair after which he passed out for a short period of time possibly around 1 minute. No chest pain. No shortness of breath. No palpitations. Patient did not fall. Blood pressure was reported to be low during episode. Exact value unclear. Patient compliant with antihypertensive medications. Patient had 1 prior syncope many years ago. No cough or cold In the ED T: 36.8 C (Oral) HR: 85(Monitored) RR: 18 BP: 150/77 SpO2: 97% WT: 77.5 kg. CBC showed Hb 10.4, WBC 9.9, platelets 227. D-dimer was elevated at 2234. Urinalysis was negative. BMP showed potassium 3.5, glucose 212, bun 12, creatinine 0.85. Troponins have remained flat 66-80-73. proBNP was 1012. CTA showed no evidence of pulmonary embolism. Evidence of granulomatous process/infection with multiple calcifiednodules within the right lung and calcified mediastinal and hilar lymphnodes. Mild, partially calcified right hilar adenopathy. Mild pulmonary edema. ECG showed poor R wave progression. Some anterior lateral ischemia compared to previous ECG. Echo from 11/09/2022 1. Left ventricle: The cavity size is normal. Wall thickness is normal. Systolic function is normal. The estimated ejection fraction is 55-60%. Wall motion is normal; there are no regional wall motion abnormalities. Grade I diastolic dysfunction. 2. Aortic valve: There is at least mild to possibly moderate stenosis. There is mild, 1+ regurgitation. The mean systolic gradient is 12 mm Hg. The peak systolic gradient is 22 mm Hg. The LVOT to aortic valve VTI ratio is 0.38. The valve area by VTI is 1.2 cm . 3. Mitral valve: There is mild, 1+ regurgitation. 4. Left atrium: The atrium is mildly dilated. 5. Right ventricle: The RV systolic pressure by Doppler is 27 mm Hg. 6. Tricuspid valve: There is mild, 1+ regurgitation. 7. Right atrium: The estimated right atrial pressure is 3 mm Hg. Review of Systems CONSTITUTIONAL: No weight loss, fever, chills, weakness or fatigue. HEENT: Eyes: No visual loss, blurred vision, double vision or yellow sclerae. Ears, Nose, Throat: No hearing loss, sneezing, congestion, runny nose or sore throat. SKIN: No rash or itching. CARDIOVASCULAR: No chest pain, chest pressure or chest discomfort. No palpitations or edema. RESPIRATORY: No shortness of breath, cough or sputum. GASTROINTESTINAL: No anorexia, nausea, vomiting or diarrhea. No abdominal pain or blood. NEUROLOGICAL: Had dizziness and syncope MUSCULOSKELETAL: No muscle, back pain, joint pain or stiffness. HEMATOLOGIC: No anemia, bleeding or bruising. LYMPHATICS: No enlarged nodes. No history of splenectomy. PSYCHIATRIC: No history of depression or anxiety. ENDOCRINOLOGIC: No reports of sweating, cold or heat intolerance. No polyuria or polydipsia. ALLERGIES: No history of asthma, hives, eczema or rhinitis. Physical Exam Vitals and Measurements T: 36.8 C (Oral) HR: 85(Monitored) RR: 18 BP: 150/77 SpO2: 97% WT: 77.5 kg Weight Dosing Weight: 77.5 kg (07/02/23) GENERAL: Awake, alert, comfortable appearing, in no acute distress. HEENT: Head is normocephalic and atraumatic. Pupils are equal, round, and reactive to light. Extraocular muscles are intact. No nasal discharge. No facial trauma. Intraoral exam shows moist mucous membranes with no tonsillar enlargement or exudate. Tympanic membranes are normal. The canals are clear. NECK: Supple with no cervical lymphadenopathy No meningismus. No goiter. HEART: 2/6 systolic murmer. aortic area LUNGS: Equal breath sounds bilaterally with no wheezing, rales, or rhonchi. There is no chest wall tenderness or instability. ABDOMEN: No external sign of injury. Bowel sounds are present. Abdomen is soft, nontender. No rebound, no guarding, no rigidity. There are no palpable masses. There is no flank pain on exam. EXTREMITIES: Strong peripheral pulses. There is no clubbing, no cyanosis, and no edema. SKIN: No rash. Lab Results 07/01 12:39 WBC: 9.9 Hgb: 10.4 L Hct: 30.5 L Platelet: 227 Neutrophil %: 74.7 Glucose Level: 212 H Sodium Level: 138 Potassium Level: 3.5 BUN: 12.0 Creatinine Lvl (s): 0.85 Imaging Results and Diagnostics CT Angiography Chest w/ Contrast Result Date: July 02, 2023 Verified By: AIDAN CRESPO DO CLINICAL STATEMENT: IMPRESSION: 1. No evidence of pulmonary embolism.2. Mild pulmonary edema.3. Evidence of granulomatous process/infection with multiple calcifiednodules within the right lung and calcified mediastinal and hilar lymphnodes. Mild, partially calcified right hilar adenopathy. XR Chest 1 View Result Date: July 02, 2023 Verified By: SEKOU SANDERS MD CLINICAL STATEMENT: IMPRESSION: Low lung volumes, otherwise no acute abnormality. EKG EC07/02/23: SINUS RHYTHM ABNORMAL R-WAVE PROGRESSION, EARLY TRANSITION ABNRM T, CONSIDER ISCHEMIA, ANTEROLATERAL LDS Electronic Signature: XIANG MOORE MD 07/02/2023 12:42:05 Assessment/Plan Syncope likely vasovagal Elevated troponin Type II [place] Mild to moderate aortic stenosis- valve area by VTI is 1.2 cm New ischemia on ECG Hypertension Diabetes DVT prophylaxis CODE STATUS Admit MTS CCU team Serial troponins and ECGs Check orthostats Will need Repeat echo Will keep n.p.o. for now. May benefit from nuclear stress test given underlying ischemia. Restart home medications as appropriate Keep potassium greater than 4 and magnesium greater than 2 Check TSH, A1c, lipid profile, magnesium Hold oral hypoglycemics. Low-dose sliding scale. DVT prophylaxis Lovenox CODE STATUS full code Problem List/Past Medical History Ongoing Foot drop, left Hearing loss of right ear due to cerumen impaction Heart murmur Hypertension Left knee pain Leg cramps Neuropathy of left foot Peripheral vascular disease Right foot pain Spinal stenosis Type 2 diabetes mellitus Historical No qualifying data Procedure/Surgical History Knee replacement Achilles tendon repair Appendectomy Back Medications Home Medications (5) Active amLODIPine 10 mg oral tablet 10 mg = 1 tab(s), Oral, Daily glimepiride 4 mg oral tablet 4 mg = 1 tab(s), Oral, qDay hydroCHLOROthiazide 12.5 mg oral capsule 12.5 mg = 1 cap(s), Oral, qDay lisinopril 20 mg oral tablet 20 mg = 1 tab(s), Oral, Daily Potassium Chloride (Eqv-K-Tab) 20 mEq oral tablet, extended release 20 mEq = 1 tab(s), Oral, qDay Allergies NKA Social History Smoking Status - 02/22/2017 Never smoker Alcohol - Denies Alcohol Use, 02/22/2017 Type: Wine. Frequency: 1-2 times per week., 04/05/2021 Nutrition/Health Caffeine intake amount: 1 cup daily-Tea., 11/02/2022 Substance Abuse - Denies Substance Abuse, 02/22/2017 Use: Never., 11/02/2022 Tobacco - No Risk, 02/21/2020 Nicotine Use: Never (less than 100 in lifetime)., 04/05/2021 Family History Heart disease: Father, Sister, Brother and Grandparent. Immunizations SARS-CoV-2 mRNA (tozinameran) vaccine: 0.5 unknown unit (09/07/20) SARS-CoV-2 mRNA (tozinameran) vaccine: 0.5 unknown unit (08/18/20) Code Status Code Status - Ordered -- 07/02/23 19:14:00 EST, Full Code, Constant Order Digitally Signed by YUSUF ONEAL MD on 07/03/2023 07:14 AM [facility] 07-03-2023 Note SINUS RHYTHM ABNORMAL T, CONSIDER ISCHEMIA, LATERAL LEADS Electronic Signature: TOSHA MOORE MD 07/03/2023 09:14:14 [facility] 07-02-2023 History and physical note Date of Service 07/02/2023 Chief Complaint pt was at a post op apt for back surg and had a near syncopal episode. BG of 245 History of Present Illness 77-year-old male with history of type 2 diabetes, peripheral vascular disease, hypertension presenting for assessment of syncope.Patient had recent back surgery and is currently in a correction. While at follow-up appointment with surgeon today he was standing to have his sutures removed. He then felt dizzy and had to sit in a chair after which he passed out for a short period of time possibly around 1 minute. No chest pain. No shortness of breath. No palpitations. Patient did not fall. Blood pressure was reported to be low during episode. Exact value unclear. Patient compliant with antihypertensive medications. Patient had 1 prior syncope many years ago. No cough or cold In the ED T: 36.8 C (Oral) HR: 85(Monitored) RR: 18 BP: 150/77 SpO2: 97% WT: 77.5 kg. CBC showed Hb 10.4, WBC 9.9, platelets 227. D-dimer was elevated at 2234. Urinalysis was negative. BMP showed potassium 3.5, glucose 212, bun 12, creatinine 0.85. Troponins have remained flat 66-80-73. proBNP was 1012. CTA showed no evidence of pulmonary embolism. Evidence of granulomatous process/infection with multiple calcifiednodules within the right lung and calcified mediastinal and hilar lymphnodes. Mild, partially calcified right hilar adenopathy. Mild pulmonary edema. ECG showed poor R wave progression. Some anterior lateral ischemia compared to previous ECG. Echo from 11/09/2022 1. Left ventricle: The cavity size is normal. Wall thickness is normal. Systolic function is normal. The estimated ejection fraction is 55-60%. Wall motion is normal; there are no regional wall motion abnormalities. Grade I diastolic dysfunction. 2. Aortic valve: There is at least mild to possibly moderate stenosis. There is mild, 1+ regurgitation. The mean systolic gradient is 12 mm Hg. The peak systolic gradient is 22 mm Hg. The LVOT to aortic valve VTI ratio is 0.38. The valve area by VTI is 1.2 cm . 3. Mitral valve: There is mild, 1+ regurgitation. 4. Left atrium: The atrium is mildly dilated. 5. Right ventricle: The RV systolic pressure by Doppler is 27 mm Hg. 6. Tricuspid valve: There is mild, 1+ regurgitation. 7. Right atrium: The estimated right atrial pressure is 3 mm Hg. Review of Systems CONSTITUTIONAL: No weight loss, fever, chills, weakness or fatigue. HEENT: Eyes: No visual loss, blurred vision, double vision or yellow sclerae. Ears, Nose, Throat: No hearing loss, sneezing, congestion, runny nose or sore throat. SKIN: No rash or itching. CARDIOVASCULAR: No chest pain, chest pressure or chest discomfort. No palpitations or edema. RESPIRATORY: No shortness of breath, cough or sputum. GASTROINTESTINAL: No anorexia, nausea, vomiting or diarrhea. No abdominal pain or blood. NEUROLOGICAL: Had dizziness and syncope MUSCULOSKELETAL: No muscle, back pain, joint pain or stiffness. HEMATOLOGIC: No anemia, bleeding or bruising. LYMPHATICS: No enlarged nodes. No history of splenectomy. PSYCHIATRIC: No history of depression or anxiety. ENDOCRINOLOGIC: No reports of sweating, cold or heat intolerance. No polyuria or polydipsia. ALLERGIES: No history of asthma, hives, eczema or rhinitis. Physical Exam Vitals and Measurements T: 36.8 C (Oral) HR: 85(Monitored) RR: 18 BP: 150/77 SpO2: 97% WT: 77.5 kg Weight Dosing Weight: 77.5 kg (07/02/23) GENERAL: Awake, alert, comfortable appearing, in no acute distress. HEENT: Head is normocephalic and atraumatic. Pupils are equal, round, and reactive to light. Extraocular muscles are intact. No nasal discharge. No facial trauma. Intraoral exam shows moist mucous membranes with no tonsillar enlargement or exudate. Tympanic membranes are normal. The canals are clear. NECK: Supple with no cervical lymphadenopathy No meningismus. No goiter. HEART: 2/6 systolic murmer. aortic area LUNGS: Equal breath sounds bilaterally with no wheezing, rales, or rhonchi. There is no chest wall tenderness or instability. ABDOMEN: No external sign of injury. Bowel sounds are present. Abdomen is soft, nontender. No rebound, no guarding, no rigidity. There are no palpable masses. There is no flank pain on exam. EXTREMITIES: Strong peripheral pulses. There is no clubbing, no cyanosis, and no edema. SKIN: No rash. Lab Results 07/01 12:39 WBC: 9.9 Hgb: 10.4 L Hct: 30.5 L Platelet: 227 Neutrophil %: 74.7 Glucose Level: 212 H Sodium Level: 138 Potassium Level: 3.5 BUN: 12.0 Creatinine Lvl (s): 0.85 Imaging Results and Diagnostics CT Angiography Chest w/ Contrast Result Date: July 02, 2023 Verified By: AIDAN CRESPO DO CLINICAL STATEMENT: IMPRESSION: 1. No evidence of pulmonary embolism.2. Mild pulmonary edema.3. Evidence of granulomatous process/infection with multiple calcifiednodules within the right lung and calcified mediastinal and hilar lymphnodes. Mild, partially calcified right hilar adenopathy. XR Chest 1 View Result Date: July 02, 2023 Verified By: SEKOU SANDERS MD CLINICAL STATEMENT: IMPRESSION: Low lung volumes, otherwise no acute abnormality. EKG EC07/02/23: SINUS RHYTHM ABNORMAL R-WAVE PROGRESSION, EARLY TRANSITION ABNRM T, CONSIDER ISCHEMIA, ANTEROLATERAL LDS Electronic Signature: XIANG MOORE MD 07/02/2023 12:42:05 Assessment/Plan Syncope likely vasovagal Elevated troponin Type II [place] Mild to moderate aortic stenosis- valve area by VTI is 1.2 cm New ischemia on ECG Hypertension Diabetes DVT prophylaxis CODE STATUS Admit MTS CCU team Serial troponins and ECGs Check orthostats Will need Repeat echo Will keep n.p.o. for now. May benefit from nuclear stress test given underlying ischemia. Restart home medications as appropriate Keep potassium greater than 4 and magnesium greater than 2 Check TSH, A1c, lipid profile, magnesium Hold oral hypoglycemics. Low-dose sliding scale. DVT prophylaxis Lovenox CODE STATUS full code Problem List/Past Medical History Ongoing Foot drop, left Hearing loss of right ear due to cerumen impaction Heart murmur Hypertension Left knee pain Leg cramps Neuropathy of left foot Peripheral vascular disease Right foot pain Spinal stenosis Type 2 diabetes mellitus Historical No qualifying data Procedure/Surgical History Knee replacement Achilles tendon repair Appendectomy Back Medications Home Medications (5) Active amLODIPine 10 mg oral tablet 10 mg = 1 tab(s), Oral, Daily glimepiride 4 mg oral tablet 4 mg = 1 tab(s), Oral, qDay hydroCHLOROthiazide 12.5 mg oral capsule 12.5 mg = 1 cap(s), Oral, qDay lisinopril 20 mg oral tablet 20 mg = 1 tab(s), Oral, Daily Potassium Chloride (Eqv-K-Tab) 20 mEq oral tablet, extended release 20 mEq = 1 tab(s), Oral, qDay Allergies NKA Social History Smoking Status - 02/22/2017 Never smoker Alcohol - Denies Alcohol Use, 02/22/2017 Type: Wine. Frequency: 1-2 times per week., 04/05/2021 Nutrition/Health Caffeine intake amount: 1 cup daily-Tea., 11/02/2022 Substance Abuse - Denies Substance Abuse, 02/22/2017 Use: Never., 11/02/2022 Tobacco - No Risk, 02/21/2020 Nicotine Use: Never (less than 100 in lifetime)., 04/05/2021 Family History Heart disease: Father, Sister, Brother and Grandparent. Immunizations SARS-CoV-2 mRNA (tozinameran) vaccine: 0.5 unknown unit (09/07/20) SARS-CoV-2 mRNA (tozinameran) vaccine: 0.5 unknown unit (08/18/20) Code Status Code Status - Ordered -- 07/02/23 19:14:00 EST, Full Code, Constant Order Digitally Signed by YUSUF ONEAL MD on 07/03/2023 07:14 AM [facility] 07-02-2023 Note ORIGINAL EXAMINATION: CTA OF THE CHEST 07/02/2023 6:34 pm TECHNIQUE: CTA of the chest was performed after the administration of intravenous contrast. Multiplanar reformatted images are provided for review. MIP images are provided for review. Automated exposure control, iterative reconstruction, and/or weight based adjustment of the mA/kV was utilized to reduce the radiation dose to as low as reasonably achievable. COMPARISON: None. HISTORY: ORDERING SYSTEM PROVIDED HISTORY: Reason for Exam: NEAR SYNCOPE EPISODE TODAY difficulty breathing; suspect PE FINDINGS: Pulmonary Arteries: Pulmonary arteries are adequately opacified for evaluation. No evidence of intraluminal filling defect to suggest pulmonary embolism. Main pulmonary artery is normal in caliber. Mediastinum: Evaluation for mediastinal adenopathy is decreased in sensitivity secondary to lack of intravenous contrast however of calcified lymph nodes are appreciated at the precarinal and bilateral hilar stations, right greater than left. Partially calcified right hilar adenopathy measuring up to 1.2 cm is also noted.. The heart and pericardium demonstrate no acute abnormality. No evidence of right heart strain. There is no acute abnormality of the thoracic aorta, which demonstrates calcified atherosclerotic plaque. Lungs/pleura: Ground-glass opacities and mild interlobular septal thickening are appreciated the bilateral lung bases. Multiple small calcified lung nodules are appreciated within the right upper and lower lobes. No focal consolidation. No evidence of pleural effusion or pneumothorax. Upper Abdomen: Limited images of the upper abdomen are unremarkable. Soft Tissues/Bones: No acute bone or soft tissue abnormality. IMPRESSION: 1. No evidence of pulmonary embolism. 2. Mild pulmonary edema. 3. Evidence of granulomatous process/infection with multiple calcified nodules within the right lung and calcified mediastinal and hilar lymph nodes. Mild, partially calcified right hilar adenopathy. Interpreted by: Aidan Crespo Preliminary Report By: Aidan Crespo Electronically signed By Aidan Crespo Dictated Date: 07/02/2023 6:38:05 PM Prelim Date: 07/02/2023 6:49:49 PM Sign Date: 07/02/2023 6:49:49 PM Ordering Provider: XIANG MOORE [facility] 07-02-2023 Evaluation + Plan note Extrac simon from: Title:History and Physical Author:CHAYA ONEAL MD Date:07/02/23 Syncope likely vasovagal Elevated troponin Type II [place] Mild to moderate aortic stenosis- valve area by VTI is 1.2 cm New ischemia on ECG Hypertension Diabetes DVT prophylaxis CODE STATUS Admit MTS CCU team Serial troponins and ECGs Check orthostats Will need Repeat echo Will keep n.p.o. for now. May benefit from nuclear stress test given underlying ischemia. Restart home medications as appropriate Keep potassium greater than 4 and magnesium greater than 2 Check TSH, A1c, lipid profile, magnesium Hold oral hypoglycemics. Low-dose sliding scale. DVT prophylaxis Lovenox CODE STATUS full code Addendum by ALISSA BRITT MD on July 03, 2023 17:42:02 EST I have personally seen, examined, and evaluated the patient on the encounter date. I have reviewed the resident's documentation and agree with the resident's findings and plan as documented, unless otherwise stated. Patient admitted with syncope while he was an physician's office. He was in physician's office for staple removal after her back surgery. He denies any pain. He does have aortic stenosis and his troponin is mildly elevated. Patient states that he had echocardiogram few weeks ago with his vp product. Will get the records. He does have multiple risk factors. Given his elevated troponin, we will get a stress test to rule out any ischemia. Further recommendation after reviewing the results of the echocardiogram and the stress test. Future Scheduled Tests Radiology* MRI Spine Lumbar w/ + w/o Contrast 03/29/23 [facility] 03-04-2024 Note ORIGINAL EXAMINATION: ONE XRAY VIEW OF THE CHEST07/02/2023 11:56 am COMPARISON: 02/21/2020 HISTORY: ORDERING SYSTEM PROVIDED HISTORY: Reason for Exam: syncopal episode FINDINGS: Lung volumes are low. The heart size and pulmonary vascularity are within normal limits. There is no pleural effusion or pneumothorax. The lungs are clear. IMPRESSION: Low lung volumes, otherwise no acute abnormality. Interpreted by: Sekou Sanders Preliminary Report By: Sekou Sanders Electronically signed By Sekou Sanders Dictated Date: 07/02/2023 12:58:06 PM Prelim Date: 07/02/2023 12:58:43 PM Sign Date: 07/02/2023 12:58:43 PM Ordering Provider: XIANG [facility]03-04-2024 NoteSINUS RHYTHM ABNORMAL R-WAVE PROGRESSION, EARLY TRANSITION ABNRM T, CONSIDER ISCHEMIA, ANTEROLATERAL LDS Electronic Signature: XIANG MOORE MD 07/02/2023 12:42:05[facility] 02-24-2024 NoteACH [facility] PCU [address] [facility] [address] Dept: [phone] Adult Spine Service Patient Name: Azar Triplett Date of : 1945 Date: 07/10/23 Discharge Summary Admit date: 06/19/2023 Discharge date and time: 06/23/2023 6:06 PM Admitting Physician: Guerda Alvarez MD Admission Diagnoses: Lumbar Spondylolisthesis, Stenosis Discharge Diagnoses: same Operative Procedures: Anterior Lumbar Interbody Fusion L4-5-S1, LT Peek Cage, Bone Morphogenic Protein Posterior Fusion L4-5-S1, Decompression O0-2-7-4-5-S1, Solera Pedicle Instrumentation, Local Bone Indication for Admission: The patient has a history of the above diagnoses that became progressively worse and failed non-operative management. The risks and benefits of surgery were discussed with the patient and family, of which they elected to proceed with operative intervention. Hospital Course: The patient was admitted to the hospital on the day of surgery and underwent the above procedure. Post-operatively, the patient was transferred to the orthopaedic spine floor. They received 24 hours of prophylactic intravenous antibiotics. DVT prophylaxis included SCDs and early ambulation. The patient was able to tolerate a regular diet and their pain was reasonably controlled. The patient progressed well throughout the hospitalization and was deemed stable for discharge on above listed date. Disposition: [facility] Facility Discharge Medications: Medication List START taking these medications acetaminophen 650 MG ER tablet Commonly known as: Tylenol 8 Hour Take 1 tablet (650 mg) by mouth every 8 hours as needed for mild pain (1-3) or moderate pain (4-6) (take as needed for pain). Do not crush, chew, or split. docusate sodium 100 MG capsule Commonly known as: Colace Take 1 capsule (100 mg) by mouth 2 times daily. Take 2 times a day as needed for constipation. ondansetron 4 MG tablet Commonly known as: Zofran Take 1 tablet (4 mg) by mouth in the morning and 1 tablet (4 mg) at noon and 1 tablet (4 mg) before bedtime. Take 1 tablet every 8 hours as needed for nausea and/or vomiting. May take 2 tablets if needed.. CONTINUE taking these medications amLODIPine 10 MG tablet Commonly known as: Norvasc glimepiride 4 MG tablet Commonly known as: Amaryl hydroCHLOROthiazide 12.5 MG capsule Commonly known as: Microzide lisinopril 20 MG tablet ASK your doctor about these medications oxyCODONE 5 MG immediate release tablet Commonly known as: Roxicodone Take 1 tablet (5 mg) by mouth every 6 hours as needed for severe pain (7-10) or moderate pain (4-6) for up to 5 days. Take as needed every 6 hours as needed for pain. Continue to wean off as pain becomes more tolerable. Ask about: Should I take this medication? Where to Get Your Medications You can get these medications from any pharmacy Bring a paper prescription for each of these medications acetaminophen 650 MG ER tablet docusate sodium 100 MG capsule ondansetron 4 MG tablet oxyCODONE 5 MG immediate release tablet Patient Instructions: The patient will notify me for any increased bleeding, drainage, progressively worsening pain, or other concerning symptoms such as neurologic deficit. They have been instructed to report to the emergency room immediately for any chest pain, shortness of breath, bowel/bladder incontinence or any of the aforementioned symptoms. Activity Precautions: Ok for ambulation as tolerated. No lifting more than a gallon of milk. No driving until cleared by me at follow-up appointment. If a post-operative brace was prescribed, it is ok to take off for hygiene and sleeping. Wound Care: Keep incision clean and dry. See discharge instruction sheet for additional details. Follow-up visit: 3 weeks post-op with Dr. Page Signed: TOSIN AGUILA MD 07/10/2023 12:21 [facility]02-24-2024 NoteOrthopedic Surgery Progress Note Currently patient is awaiting discharge to rehab facility. Per attending physician he is okay to discharge to rehab with drain in place as long as facility is okay caring for the drain via keeping drain site clean and emptying drain BID and recording the output. Patient okay for discharge as long as he is cleared by PT for rehab, medically stable and pain is controlled. Raine Hannon MD Orthopedic Surgery PGY-2 06/23/2023 at 3:41 [facility]02-24-2024 History of Present illness Narrative* Deb Salas RN - 06/23/2023 5:00 PM EST Brace applied to patient and belongings gathered. * Deb Salas RN - 06/23/2023 4:58 PM EST Attempted to call report to [facility]. * Raine Hannon MD - 06/23/2023 3:40 PM EST Orthopedic Surgery Progress Note Currently patient is awaiting discharge to rehab facility. Per attending physician he is okay to discharge to rehab with drain in place as long as facility is okay caring for the drain via keeping drain site clean and emptying drain BID and recording the output. Patient okay for discharge as long as he is cleared by PT for rehab, medically stable and pain is controlled. Raine Hannon MD Orthopedic Surgery PGY-2 06/23/2023 at 3:41 PM * Iain Mueller DO - 06/23/2023 12:03 PM EST Images from the original note were not included. Hospitalist Progress Note 06/23/2023 Subjective: Admit Date: 06/19/2023 PCP: Seferino Hernandez Room#: [id number] A Brief Hospital course: 77-year-old male past medical history of hypertension, diabetes mellitus type 2 and chronic back pain who is status post ALIF L4/5, L5/S1, PSF L4-S1, lami L1- L5, medicine is consulted for diabetic and hypertensive management. Interval History: 06/23: Drain still in place. Plan is SNF once drain able to be pulled. Adult diet Regular; 5 carb choices (75 gm/meal) 24HR INTAKE/OUTPUT: Intake/Output Summary (Last 24 hours) at 06/23/2023 1203 Last data filed at 06/23/2023 0615 Gross per 24 hour Intake 550 ml Output 585 ml Net -35 ml Past Medical History: Past Medical History: Diagnosis Date Abnormal EKG Back pain recent steroid [id number] Cardiac murmur echo 06-14-23 EF 40-45%, moderate to severe aortic valve stenosis Diabetes (HCC) Hypertension PVC's (premature ventricular contractions) LABS: CBC: Recent Labs 06/21/23 0235 WBC 19.7* RBC 3.44* HGB 10.2* HCT 30.5* MCV 88.7 RDW 13.1 PLT 182 BMP: Recent Labs 06/21/23 0235 NA 135 K 3.6 CL 103 CO2 25 BUN 25* CREATININE 0.94 GLUCOSE 239* CALCIUM 8.6 ANIONGAP 7 LIVER PROFILE: No results for input(s): AST, ALT, BILITOT, ALKPHOS, PROT in the last 72 hours. No lab exists for component: LABALBU PT/INR: No results for input(s): PROTIME, INR in the last 72 hours. CARDIAC ENZYMES: No results for input(s): TROPONINI in the last 72 hours. Procalcitonin: No results found for: PROCAL COVID-19 PCR: No results for input(s): COVID19 in the last 72 hours. Objective: Vitals: BP 115/78 (BP Location: Left arm, Patient Position: Sitting) Pulse 99 Temp 37.1 C (98.8F) (Temporal) Resp 16 Ht 5' 5 (1.651 m) Wt 180 lb 12.4 oz (82 kg) SpO2 97% BMI 30.08 kg/m Pulse Ox: SpO2 Av.5 % Min: 96 % Max: 97 % Supplemental O2: O2 Flow Rate (L/min): 2 L/min GENERAL: Sitting in chair comfortably HEENT: normocephalic, non-traumatic, MMM NECK: supple, trachea midline HEART: RRR, normal S1 and S2 LUNGS: non labored ABD: non distended MSK: no edema noted SKIN: warm, dry Medications: amLODIPine, 10 mg, Oral, Daily famotidine, 20 mg, Oral, BID hydroCHLOROthiazide, 12.5 mg, Oral, Daily insulin glargine, 10 Units, SubCUTAneous, Nightly insulin lispro, 0-12 Units, SubCUTAneous, TID WC And insulin lispro, 0-12 Units, SubCUTAneous, Nightly insulin lispro, 10 Units, SubCUTAneous, TID WC lisinopril, 20 mg, Oral, Daily polyethylene glycol (PEG) 3350, 17 g, Oral, BID senna-docusate sodium, 2 tablet, Oral, BID sodium chloride 0.9%, 10 mL, IntraVENous, 2 times per day Assessment Data: Acute, acute on chronic, unstable/uncontrolled chronic problems/diagnoses: Hyperglycemia with diabetes mellitus type 2 - patient's home regimen is glimepiride 4 mg daily; severely elevated with steroid use and not covering adequately with meals Constipation, persistent S/p ALIF L4/5, L5/S1, PSF L4-S1, lami L1-L5 - on 06/19/23 Stable chronic problems affecting care, new non-acute diagnoses: Hypertension -Home regimen includes amlodipine 10 mg, hydrochlorothiazide 12.5 mg and lisinopril 20mg Aortic valve stenosis-follows with cardiology as outpatient HFrEF-EF 45% GERD Plan As a result of the above findings & factors, the following mgmt was pursued: -Orthopedic surgery is primary -Continue on 10U glargine nightly and increase 10U TID lispro with meals -- steroids are known to increase postprandial sugars; patient should be placed back on home diabetic medications on discharge, should not place on insulin on discharge -Blood pressure is stable on home medications -Scheduled Tylenol 1 g every 6 -BRENNA senna + MiraLax given constipation; if no BM today, will order an enema - am labs, replace lytes prn - PT/OT/CM/SW - delirium precautions: increase activity and limit nighttime disturbances - DVT prophylaxis: SCDs and encourage ambulation Advance Directive: Full Code 55 minutes spent in chart review, lab and radiology interpretation, patient eval, counseling and treatment plan. Medically stable for discharge when ok from primary team, pending drain removal and SNF acceptance Iain Mueller DO Division of Hospitalist Medicine Acute [facility] * Reagan Merchant MD - 06/23/2023 10:23 AM EST [facility] UN[facility] PCU [address] [address] Dept: [phone] Loc: [phone] Orthopedic Spine Progress Note Name: Azar Triplett Date:06/23/2023 Attending:Guerda Alvarez MD Subjective No events o/n. Pain well controlled. Has been ambulating very well. Wants to go to SNF for a short time prior to dc home. Objective Vitals: Vitals: 06/22/23 0741 06/22/23 0940 06/22/23 2203 06/23/23 0831 BP: 146/82 117/59 115/78 BP Location: Right arm Left arm Patient Position: Lying Sitting Pulse: 90 93 99 Resp: 18 17 16 Temp: 37 C (98.6 F) 37.2 C (98.9 F) 37.1 C (98.8 F) TempSrc: Temporal Temporal Temporal SpO2: 95% 96% 97% Weight: 82 kg (180 lb 12.4 oz) Height: 1.651 m (5' 5) Physical Exam: General: NAD Neuro Extremity Exam: Lower Extremity Motor: HF Q TA EHL GSC Right 4* 5 4 3 4 Left 5 5 4 4 4+ *limited by pain Lower extremity sensation to light touch: L2 L3 L4 L5 S1 Right Intact Intact Intact Intact Intact Left Intact Intact Intact Intact Intact Back: Dressing c/d/I Drain: 160 SS output LABS: Recent Labs 06/21/23 0235 WBC 19.7* HGB 10.2* HCT 30.5* PLT 182 Recent Labs 06/21/23 0235 NA 135 K 3.6 CL 103 CO2 25 BUN 25* CREATININE 0.94 CALCIUM 8.6 No results for input(s): INR in the last 72 hours. No results for input(s): SEDRATE, CRP in the last 72 hours. No results for input(s): HCG in the last 72 hours. Assessment Azar is a 77 y.o.male s/p L4-S1 ALIF/PSF+L1-S1 decompression 06/19 Plan -WBAT/ROM as tolerated -Immobilization: No immobilization needed -Consults: -Internal medicine consult for medical management -Acute pain service consult for pain control recommendations -Antibiotics: No further antibiotics needed. Post op course completed. -Dressings: Keep bandage clean dry and intact for 7-10 days post operatively, then ok to leave opento air if incision is without drainage. -Other: Drain care: ortho team will pull when appropriate. Record output every shift. -Neurochecks q4 -Bowel regimen: -Sennakot, miralax -Labs: No further labs needed from ortho standpoint. -PT/OT -DVT ppx: SCDs/mobilization -Follow-up with Dr Page in 2 weeks -Ortho primary team. Dispo: SNF placement once drain able to be pulled Reagan Merchant M.D. Orthopaedic Surgery * Paige Kvng - 06/22/2023 12:09 PM EST Images from the original note were not included. PHYSICAL THERAPY [facility] Treatment Note Name/MRN: Azar Triplett ([id number]) Date of : 1945 Age: 77 y.o. Room/Bed: H-6112/6112 A Discharge Recommendation: 24 hour supervision or assist, Home with Home health PT Equipment Needed: No Other: Owns a FWW Prior Level of Function ADL Assistance: Independent Ambulation Assistance: Independent with cane Transfer Assistance: Independent No prior bracing for the LE's. Reported some falls at home from weakness, including one in the past week. Assessment Patient tolerated therapy session well this afternoon. Patient ambulated 630 ft around H Unit with CGA and verbal cues to maintain upright posture given. Pt requires CGA for transfers and CGA to Min Assist for bed mobility. Progressing toward PT goals. No PT goals met this session. 24 hour supervision and home health PT recommended upon discharge. Subjective Pt presents seated in chair. States that he just had a treatment with OT but is willing to work with PT. States his right hip is hurting more than his back but could be due to the fact he has been sleeping on his side at night. Patient states he is ready to get out of here. Pain: 0-10 pain scale: 5/10 Location: back, right hip Medical Precautions: No active isolations Proper PPE donned/doffed in accordance with facility standards. Fall Risk: Haro Fall Risk Score: 60 (High Risk) Precautions/Restrictions: Spine Precautions: No Bending, No Lifting, No Twisting Overall Cognitive Status: WNL Overall Orientation Status: Oriented x4 Family/Caregiver Present: child(halima) Objective Ambulation Ambulation 1 Assistive device(s) used: front wheeled walker Assist level: Contact Guard Distance (ft): 630 ft Quality of gait: reciprocal stepping, equal step length, slow clark Verbal cues given to maintain upright posture. Transfers/Mobility Sit to stand: Contact Guard Stand to sit: Contact Guard Sitting balance: SBA Standing balance: Contact Guard Verbal cues given for hand placement. Device(s) used: front wheeled walker Exercises Exercises Quad Sets: x10 bilateral w/ 3 sec hold, reclined Heelslides: x10, reclined Gluteal Sets: x10 bilateral w/ 3 sec hold, reclined Knee Long Arc Quad: x10 bilateral, seated Ankle Pumps: x10 bilateral, reclined Other exercises Other exercises?: No Bed Mobility Supine to sit: Contact Guard, Min Assist Sit to supine: Contact Guard, Min Assist Verbal cues given for log roll technique Sitting - Static: SBA Sitting - Dynamic: SBA Standing - Static: Contact Guard Standing - Dynamic: Contact Guard Plan Continue acute PT per plan of care. Safety/Education Safety Safety Devices in place: All fall risk precautions in place, call light within reach, left in bed, gait belt, no alarms engaged upon entry, and paraffiner present Restraints: No Education Education Given To: patient Education Provided: PT Role, PT Goals, Gait Training, Plan of Care, and Precautions Education Method: Verbal and Demonstration Barriers to Learning: None Education Outcome: Verbalized Understanding and Demonstrated Understanding Outcome Measures AM-PAC AM-PAC Inpatient Mobility Raw Score (No Stairs) : 15 JH-HLM JH-HLM Score: Walked 250 ft or more (i.e. several laps on unit) Goals Patient Stated Goal: TO return to home with family Encounter Problems Encounter Problems (Active) Balance Patient will maintain dynamic standing balance for 10 minutes with modified independence in order to demonstrate decreased risk of falling. (Progressing) Start: 06/20/23 Expected End: 07/04/23 Mobility Patient will ambulate 100 feet with modified independence and rolling walker in order to improve safety and independence with mobility. (Progressing) Start: 06/20/23 Expected End: 07/04/23 Pain - Adult Transfers Patient will perform bed mobility with Modified independence in order to improve independence and prepare for out of bed mobility. (Progressing) Start: 06/20/23 Expected End: 07/04/23 Reported he will have a hospital bed at home. Patient will complete functional transfer with least restrictive device with modified independence in order to prepare for ambulation. (Progressing) Start: 06/20/23 Expected End: 07/04/23 Therapy Time Individual Co-treatment Time In 1130 Time Out 1157 Minutes 27 Timed Code Treatment Minutes: (GT, TP) GIANCARLO Temple This treatment session was completed by a student physical therapist field assistant under the supervision of the cosigning therapist. Joan Mayorga BRAID FOLDER * Ira Varela - 06/22/2023 11:22 AM EST Nutrition rescreen completed. Chart reviewed. Patient to be monitored and followed by the diet graphic technician. DIMITRI Ernandez * RADHA Donaldson - 06/22/2023 11:07 AM EST Images from the original note were not included. OCCUPATIONAL THERAPY [facility] Treatment Note Name/MRN: Azar Triplett ([id number]) Date of : 1945 Age: 77 y.o. Room/Bed: H-6112/-6112 A Discharge Recommendation: [facility] Facility, Pending approval of OTR/L of change in rec- Continue to assess pending progress Prior Level of Function ADL Assistance: Independent Ambulation Assistance: Independent Pt used cane PRN Transfer Assistance: Independent Assessment Currently, Pt required MIN A for functional mobility and transfers with use of FWW. Pt required MOD A for LB Bathing and MIN A for LB Dressing with use of AE. Pt required MOD A for dynamic standing balance with focus on item retrieval + tactile cues for goodbody mechanics. Pt is limited by pain in R lateral hip, R foot drop, and decreased dynamic standingbalance hindering indep and safety with functional tasks. Recommending SNF upon discharge in order to achieve highest level of function. Subjective Pt reclined in bed upon entry. Pt pleasant and agreeable to OT TX. Pt reported pain in R lateral aspects of hip- - nsg notifed of such- ice pack applied for comfort at the EOS. Pt son requesting to speak with TCC regarding discharge planning- communicated via secure chat. Pain: RN managing pain. Medical Precautions: No active isolations Proper PPE donned/doffed in accordance with facility standards. Fall Risk: Haro Fall Risk Score: 60 (High Risk) Precautions/Restrictions: Spine Precautions: No Bending, No Lifting, No Twisting Family/Caregiver Present: Son Objective ADLs Grooming: Supervision, Contact Guard, after setup- for static standing balance to perform oral hygiene standing at sink level and combing hair. LE Bathing: Mod Assist- to wash from thighs to slightly below knees d/t decreased functional reach. UE Dressing: Min Assist- to logan gown as a robe with physical assist to thread RUE into sleeve. LE Dressing: Min Assist (see below) Adaptive Equipment: Data Entry Machine Operator to doff gripper sock with MIN A for improved technique d/t overgrown toenails and use of sock aid 2/2 trials d/t decreased functional reach- unable to perform figure four method. Bed Mobility Supine to sit: Min Assist with emphasis on log roll technique for spinal comfort with assist of trunk. Sit to supine: Contact Guard Rolling to right: Contact Guard Rolling to left: Contact Guard Scooting: Contact Guard touch assist to scoot forward in bed with use of draw sheet Transfers/Mobility Sit to stand: Min Assist x 3 from bed/ chair level + tactile cues for correct hand placement. Stand to sit: Contact Guard Sitting balance: Independent Standing balance: Min Assist- for static standing balance at sink level for grooming task with unilateral support of sink ; MOD A for dynamic standing balance d/t difficulty with reaching ipsilaterally + tactile cues for improved wt shifting to avoid near LOB Functional mobility: Min Assist- Pt able to ambulate from bed towards 2nd exit sign in hallway using FWW + tactile cues for posture and safe walker mgmt- 2 standing rest periods required. Device(s) used: front wheeled walker Plan Continue acute OT per plan of care. Safety/Education Safety Safety Devices in place: All fall risk precautions in place, call light within reach, left in chair, chair alarm in place, and nurse notified Restraints: No Education Education Given To: patient and patient and son Education Provided: OT Role, Plan of Care, ADL Adaptive Strategies, Transfer Training, Energy Conservation, Orientation, Discharge Recommendations, Benefits of Increasing Activity, and Breathing Techniques Education Method: Verbal, Demonstration, and Teach Back Barriers to Learning: None Education Outcome: Verbalized Understanding and Continued Education Needed AM-PAC AM-PAC Inpatient Daily Activity Raw Score: 18 ADL Inpatient CMS G-Code Modifier: CK Goals Patient Stated Goal: to get stronger to be able to get back to working Encounter Problems Encounter Problems (Active) Balance Patient will maintain dynamic standing balance for 3 minutes with modified independence in order todemonstrate decreased risk of falling. (Slowly Progressing) Start: 06/21/23 Expected End: 07/19/23 Dressings Lower Extremities Pt will dress lower body with min assist with AE PRN. (Progressing) Start: 06/21/23 Expected End: 07/19/23 Transfers Pt will complete toilet transfer with mod indep. (Progressing) Start: 06/21/23 Expected End: 07/19/23 Therapy Time Individual Co-treatment Time In 1016 Time Out 1054 Minutes 38 Timed Code Treatment Minutes: 38 Minutes (2-ADL; 1- FUNCT ACT) RADHA Donaldson * Rhett Toledo DO - 06/22/2023 7:54 AM EST Images from the original note were not included. Hospitalist Progress Note 06/22/2023 Subjective: Admit Date: 06/19/2023 PCP: Seferino Hernandez Room#: [id number] A Brief Hospital course: 77-year-old male past medical history of hypertension, diabetes mellitus type 2 and chronic back pain who is status post ALIF L4/5, L5/S1, PSF L4-S1, lami L1- L5, medicine is consulted for diabetic and hypertensive management. Interval History: No overnight issues. Patient states he will sleep well given the multitude of issues specifically having cold feet having issues with SCDs. Patient states that he still has not had a bowel movement yet but has been passing a lot of gas. Patient is hopeful he will have a bowel movement today. Patient states that has been eating and drinking without issues, he denies nausea and vomiting. Patient isdebating whether he should want house for short-term rehab versus going home, patient states he does not have a large area within his house to undergo significant therapy. Case and plan discussed with patient and bedside nurse. All questions answered. Adult diet Regular; 5 carb choices (75 gm/meal) 24HR INTAKE/OUTPUT: Intake/Output Summary (Last 24 hours) at 06/22/2023 0754 Last data filed at 06/22/2023 0512 Gross per 24 hour Intake -- Output 347 ml Net -347 ml Past Medical History: Past Medical History: Diagnosis Date Abnormal EKG Back pain recent steroid [id number] Cardiac murmur echo 06-14-23 EF 40-45%, moderate to severe aortic valve stenosis Diabetes (HCC) Hypertension PVC's (premature ventricular contractions) LABS: CBC: Recent Labs 06/20/23 0043 06/21/23 0235 WBC -- 19.7* RBC -- 3.44* HGB 10.5* 10.2* HCT 30.3* 30.5* MCV -- 88.7 RDW -- 13.1 PLT -- 182 BMP: Recent Labs 06/20/23 0043 06/21/23 0235 NA 134* 135 K 4.0 3.6 CL 104 103 CO2 19* 25 BUN 16 25* CREATININE 0.83 0.94 GLUCOSE 263* 239* CALCIUM 8.1* 8.6 ANIONGAP 10 7 LIVER PROFILE: No results for input(s): AST, ALT, BILITOT, ALKPHOS, PROT in the last 72 hours. No lab exists for component: LABALBU PT/INR: No results for input(s): PROTIME, INR in the last 72 hours. CARDIAC ENZYMES: No results for input(s): TROPONINI in the last 72 hours. Procalcitonin: No results found for: PROCAL COVID-19 PCR: No results for input(s): COVID19 in the last 72 hours. Objective: Vitals: BP 146/82 Pulse 90 Temp 37 C (98.6 F) (Temporal) Resp 18 SpO2 95% Pulse Ox: SpO2 Av % Min: 95 % Max: 97 % Supplemental O2: O2 Flow Rate (L/min): 2 L/min Physical Exam Constitutional: General: He is not in acute distress. Appearance: He is not ill-appearing. Cardiovascular: Heart sounds: Murmur heard. Pulmonary: Effort: No respiratory distress. Abdominal: Tenderness: There is abdominal tenderness (Lower quadrant, at surgical site). Musculoskeletal: Right lower leg: No edema. Left lower leg: No edema. Skin: Coloration: Skin is not jaundiced. Neurological: Motor: Weakness (Bilateral lower extremities) present. Medications: amLODIPine, 10 mg, Oral, Daily famotidine, 20 mg, Oral, BID [Held by provider] glipiZIDE, 10 mg, Oral, qAM AC hydroCHLOROthiazide, 12.5 mg, Oral, Daily insulin glargine, 10 Units, SubCUTAneous, Nightly insulin lispro, 0-12 Units, SubCUTAneous, TID WC And insulin lispro, 0-12 Units, SubCUTAneous, Nightly insulin lispro, 10 Units, SubCUTAneous, TID WC lisinopril, 20 mg, Oral, Daily polyethylene glycol (PEG) 3350, 17 g, Oral, Daily senna-docusate sodium, 2 tablet, Oral, Daily sodium chloride 0.9%, 10 mL, IntraVENous, 2 times per day Assessment Data: (CAT1) Reviewed 3 or more notes from different specialty or health system (each=1). (CAT1) Reviewed 3 or more labs/studies ordered by another provider not previously counted (each=1, panels count as 1). (LOW: 2x CAT1 or independent historian MOD: 3x CAT1 or 1x CAT3 EXTENSIVE: 3x CAT1 and 1x CAT3) Acute, acute on chronic, unstable/uncontrolled chronic problems/diagnoses: Hyperglycemia with diabetes mellitus type 2 - patient's home regimen is glimepiride 4 mg daily; severely elevated with steroid use and not covering adequately with meals Constipation, persistent S/p ALIF L4/5, L5/S1, PSF L4-S1, lami L1-L5 - on 06/19/23 Stable chronic problems affecting care, new non-acute diagnoses: Hypertension -Home regimen includes amlodipine 10 mg, hydrochlorothiazide 12.5 mg and lisinopril 20mg Aortic valve stenosis-follows with cardiology as outpatient HFrEF-EF 45% GERD Plan As a result of the above findings & factors, the following mgmt was pursued: -Orthopedic surgery is primary -Continue on 10U glargine nightly and increase 10U TID lispro with meals -- steroids are known to increase postprandial sugars; patient should be placed back on home diabetic medications on discharge, should not place on insulin on discharge -Blood pressure is stable on home medications -Scheduled Tylenol 1 g every 6 -BRENNA senna + MiraLax given constipation; if no BM today, will order an enema - am labs, replace lytes prn - PT/OT/CM/SW - delirium precautions: increase activity and limit nighttime disturbances - DVT prophylaxis: SCDs and encourage ambulation Advance Directive: Full Code Rhett Toledo DO Division of Hospitalist Medicine [facility] * Rubens Fulton MD - 06/22/2023 6:02 AM EST Images from the original note were not included. Ortho Progress Note Patient: Azar Triplett Date of : 1945 Acct: [id number] PCP: Seferino Hernandez Date of Admission: 06/19/2023 Date of Service: Pt seen/examined on 06/22/2023 SUBJECTIVE: Patient resting in bed, states he had some difficulty sleeping d/t cold feet. Reports some pain over the R illiac crest, likely d/t positioning in bed. Denies new numbness/tingling. Has been ambulating with PT. Overall doing well. OBJECTIVE: General: alert and oriented to person, place and time, well-developed and well- nourished, in no acute distress VITALS: BP 129/67 Pulse 91 Temp 36.9 C (98.4 F) Resp 20 SpO2 97% MSK exam: Spine Exam: * Exam was limited due to pain: No Direct Spine Inspection: Abdominal dressing C/D/I, posterior lumbar dressing C/D/I, drain in place with bloody drainage HF KE DF EHL PF RLE 3 4+ 4- 4- 4+ Sensation: Intact L2-S1 with normal sensation Pulses: DP Palpable PT Palpable TTP in the following areas: Nontender throughout extremity. Nontender throughout remainder of extremity Pain w Straight leg raise: No HF KE DF EHL PF LLE 3 4+ 3 3 4+ Sensation: Intact L2-S1 with normal sensation Pulses: DP Palpable PT Palpable TTP in the following areas: Nontender throughout extremity. Nontender throughout remainder of extremity Pain w Straight leg raise: No Deep Tendon Reflexes: Right Knee: 1+ Left Knee: 1+ Right Ankle: 1+ Left Ankle: 1+ Right Ankle Clonus: absent Left Ankle Clonus: absent Babinski: downgoing BL Lab Results Component Value Date WBC 19.7 (H) 06/21/2023 HGB 10.2 (L) 06/21/2023 HCT 30.5 (L) 06/21/2023 PLT 182 06/21/2023 ALT 44 06/18/2023 AST 49 (H) 06/18/2023 NA 135 06/21/2023 K 3.6 06/21/2023 CL 103 06/21/2023 CREATININE 0.94 06/21/2023 BUN 25 (H) 06/21/2023 CO2 25 06/21/2023 HGBA1C 7.8 (H) 06/20/2023 No results found for: RH, LABANTI ASSESSMENT AND PLAN: This is a 77 y.o. male with s/p ALIF L4/5, L5/S1, PSF L4-S1, lami L1-L5 -Baclofen 10 mg q12h prn -Drain I/O q shift; Pull when POD3 <20cc x consecutive shifts -Diet: advance diet as tolerated to full -No DVT ppx, SCDs and ambulation -Multimodal pain control regimen ordered -WBAT; up w/ assistance -PT/OT -No spinal precautions -NV checks q4 hrs -Ortho primary Rubens Fulton MD PGY2 Orthopaedic Surgery 06/22/2023 6:04 AM * Paige Calderon - 06/21/2023 2:18 PM EST Images from the original note were not included. PHYSICAL THERAPY [facility] Treatment Note Name/MRN: Azar Triplett ([id number]) Date of : 1945 Age: 77 y.o. [facility] Discharge Recommendation: 24 hour supervision or assist, Home with Home health PT Equipment Needed: No Other: Owns a FWW Prior Level of Function ADL Assistance: Independent Ambulation Assistance: Independent with cane Transfer Assistance: Independent No prior bracing for the LE's. Reported some falls at home from weakness, including one in the past week. Assessment Patient tolerated therapy session well. CGA to Min assist for transfers and ambulation. Min assist for bed mobility. Pt was given log roll technique and exercise hand outs. Patient demonstrated slight drop foot on right LE during ambulation as well as increased forward posture. Verbal cues were given to correct posture. No PT goals met this session. 24 hour assist and home health PT recommended upon discharge. Subjective Patient presents sitting in chair. Agrees to PT. Daughter in room. Pain: 0-10 pain scale: 4/10 Location: back Medical Precautions: No active isolations Proper PPE donned/doffed in accordance with facility standards. Fall Risk: Haro Fall Risk Score: 60 (High Risk) Precautions/Restrictions: Spine Precautions: No Bending, No Lifting, No Twisting Overall Cognitive Status: WNL Overall Orientation Status: Oriented x4 Family/Caregiver Present: child(halima) Objective Ambulation Ambulation 1 Assistive device(s) used: front wheeled walker Assist level: Contact Guard, Min Assist Distance (ft): 75 ft Quality of gait: reciprocal stepping, slow clark, steppage gait on right lower extremity due to foot drop. For riley flexed posture, verbal cues given to correct. Transfers/Mobility Sit to stand: Contact Guard, Min Assist Stand to sit: Contact Guard, Min Assist Sitting balance: Contact Guard Standing balance: Contact Guard, Min Assist Verbal cues given for hand placement Device(s) used: front wheeled walker Exercises Exercises Hamstring Sets: x10 bilateral w/ 3 sec hold, reclined Quad Sets: x10 bilateral w/ 3 sec hold, reclined Heelslides: x10, reclined Gluteal Sets: x10 bilateral w/ 3 sec hold, reclined Knee Long Arc Quad: x10 bilateral, seated Ankle Pumps: x10 bilateral, reclined Other exercises Other exercises?: No Hand out given Bed Mobility Supine to sit: Min Assist Sit to supine: Min Assist Scooting: Min Assist Taught patient log roll technique, hand out given Plan Continue acute PT per plan of care. Safety/Education Safety Safety Devices in place: All fall risk precautions in place, call light within reach, left in bed, gait belt, no alarms engaged upon entry, and paraffiner present Restraints: No Education Education Given To: patient Education Provided: PT Role, PT Goals, Gait Training, Precautions, and Benefits of Increasing Activity Education Method: Verbal and Demonstration Barriers to Learning: None Education Outcome: Verbalized Understanding and Demonstrated Understanding Outcome Measures AM-PAC AM-PAC Inpatient Mobility Raw Score (No Stairs) : 15 JH-HLM JH-HLM Score: Walked 25 ft or more (i.e. walked outside of room) Goals Patient Stated Goal: TO return to home with family Encounter Problems Encounter Problems (Active) Balance Patient will maintain dynamic standing balance for 10 minutes with modified independence in order to demonstrate decreased risk of falling. (Progressing) Start: 06/20/23 Expected End: 07/04/23 Mobility Patient will ambulate 100 feet with modified independence and rolling walker in order to improve safety and independence with mobility. (Progressing) Start: 06/20/23 Expected End: 07/04/23 Pain - Adult Transfers Patient will perform bed mobility with Modified independence in order to improve independence and prepare for out of bed mobility. (Progressing) Start: 06/20/23 Expected End: 07/04/23 Reported he will have a hospital bed at home. Patient will complete functional transfer with least restrictive device with modified independence in order to prepare for ambulation. (Progressing) Start: 06/20/23 Expected End: 07/04/23 Therapy Time Individual Co-treatment Time In 1338 Time Out 1407 Minutes 29 Timed Code Treatment Minutes: (GT, TP) GIANCARLO Temple This treatment session was completed by a student physical therapist field assistant under the supervision of the cosigning therapist. Joan Mayorga BRAID FOLDER * Lynettemina Cronin - 06/21/2023 12:30 PM EST Images from the original note were not included. OCCUPATIONAL THERAPY [facility] Initial Evaluation Name/MRN: Azar Triplett ([id number]) Evaluation Date: 06/21/2023 Date of : 1945 Admission Date: 06/19/2023 6:04 AM Age: 77 y.o. [facility] Discharge Recommendation: Home with Home health OT, 24 hour Assist Assessment IMPRESSION: Pt was SBA for mobility. Unable to reach to complete LB dressing and could not achieve figure four position. Pt required education on BLT spinal precautions during ADLs and reports being interested in receiving home OT to assist with ADLs at home while maintaining BLT precautions. Pt would continue to benefit to maximize potential. OT recommending home with 24 hour assist and Home health OT. Performance Deficits /Impairments: Increased Pain, Decreased Functional Mobility, Decreased ADL status, Decreased Endurance, Decreased Balance, and Decreased Posture Prognosis: Fair Decision Making: Medium Complexity Subjective Pt met coming back from bathroom. Agreeable to OT. Daughter present. Pain: 0-10 pain scale: 5/10 Location: low back Diagnosis: s/p ALIF L4-S1, PSF L4-S1, and Laminectomy L1-5 06/19/23 Past Medical History: Past Medical History: Diagnosis Date Abnormal EKG Back pain recent steroid [id number] Cardiac murmur echo 06-14-23 EF 40-45%, moderate to severe aortic valve stenosis Diabetes (HCC) Hypertension PVC's (premature ventricular contractions) Past Surgical History: Past Surgical History: Procedure Laterality Date ACHILLES TENDON SURGERY APPENDECTOMY BACK SURGERY 2006 herniated disc HERNIA REPAIR Left LUMBAR FUSION 06/19/2023 LUMBAR 4/5-SACRAL 1, TOTAL KNEE ARTHROPLASTY Right WISDOM TOOTH EXTRACTION Admission Diagnosis: Patient Active Problem List Diagnosis Date Noted Spondylolisthesis of lumbosacral region 06/19/2023 Delayed emergence from anesthesia 06/18/2023 Medical Precautions: No active isolations Proper PPE donned/doffed in accordance with facility standards. Fall Risk: Haro Fall Risk Score: 60 (High Risk) Precautions/Restrictions: Spine Precautions: No Bending, No Lifting, No Twisting Family/Caregiver Present: daughter Overall Cognitive Status: WFL Overall Orientation Status: Oriented x4 Social/Functional History Patient admitted from home. Lives With: Spouse Type of Home: single family home Home Layout: Single Level Home Home Access: Level Entry Bathroom Shower/Tub: walk-in shower Toilet: N/A Home Equipment: front wheeled walker, cane, and hospital bed Homemaking Responsibilities: Independent Receives Help From: None Active Hand Cigar Maker: No Prior Level of Function ADL Assistance: Independent Ambulation Assistance: Independent Pt used cane PRN Transfer Assistance: Independent Objective ADLs LE Dressing: pt attempted to perform doff/donning socks in bedside chair, but unable to achieve figure four position or reach secondary to BLT precautions. Pt would require mod assist with LB dressing at this time. Upper Extremity Assessment AROM: WFL Strength: WFL Vision: no visual deficits Hearing: normal Transfers/Functional Mobility Stand to sit: SBA, to sit in bedside chair. Sitting balance: Supervision, UE assessment completed in bedside chair, no LOB Standing balance: BUE support at FWW, pt reports feeling slightly unsteady Functional Mobility: SBA, pt able to ambulate from bathroom, around foot of bed, to sit in bedside chair with SBA at FWW. Device(s) used: front wheeled walker Coordination: WFL Tone: WFL Sensation: WFL AM-PAC AM-PAC Inpatient Daily Activity Raw Score: 17 ADL Inpatient CMS G-Code Modifier: CK Plan Pt would benefit from skilled acute OT services to address Strengthening, Balance Training, Functional Mobility Training, Endurance Training, Pain Management, Safety Education and Training, Patient/Caregiver Training, Equipment Evaluation/Education, Self-Care/ADL Training, and Home Management Training. Frequency: 2x/week for 4 weeks Barriers: Pain, New weightbearing/ROM restrictions, Lower extremity weakness, and Wound Care Prognosis: fair Safety/Education Safety Safety Devices in place: All fall risk precautions in place, call light within reach, left in chair, patient at risk for falls, and no alarms engaged upon entry Restraints: N/A Education Education Given To: patient and daughter Education Provided: OT Role, Plan of Care, Precautions, ADL Adaptive Strategies, Transfer Training,Family Education, Equipment, Discharge Recommendations, Benefits of Increasing Activity, and pt anddaughter inquiring about home therapy options, BLT precautions, and about pt prognosis Education Method: Verbal Barriers to Learning: None Education Outcome: Verbalized Understanding, Demonstrated Understanding, and Continued Education Needed Goals Patient Stated Goal: to go home Encounter Problems Encounter Problems (Active) Balance Patient will maintain dynamic standing balance for 3 minutes with modified independence in order todemonstrate decreased risk of falling. Start: 06/21/23 Expected End: 07/19/23 Dressings Lower Extremities Pt will dress lower body with min assist with AE PRN. Start: 06/21/23 Expected End: 07/19/23 Transfers Pt will complete toilet transfer with mod indep. Start: 06/21/23 Expected End: 07/19/23 Therapy Time Individual Co-treatment Time In 1125 Time Out 1158 Minutes 33 Timed Code Treatment Minutes: 15 Minutes (funct act - 1) Ambar Hollingsworth/OT Patient's Occupational Therapy Plan of Care supervision is transferred to a [facility] Therapy Services Occupational Therapist. Goals and/or treatment plan was established in collaboration with patient/family/other representatives. * Rhett Toledo DO - 06/21/2023 8:19 AM EST Images from the original note were not included. Hospitalist Progress Note 06/21/2023 Subjective: Admit Date: 06/19/2023 PCP: Seferino Hernandez Room#: [id number] A Brief Hospital course: 77-year-old male past medical history of hypertension, diabetes mellitus type 2 and chronic back pain who is status post ALIF L4/5, L5/S1, PSF L4-S1, lami L1- L5, medicine is consulted for diabetic and hypertensive management. Interval History: No overnight issues. Fells well. He slept fairly well. Denies nausea and vomiting. He admits to constipation for the past few days, stated Miralax has helped before. Case and plan discussed with patient and bedside nurse. All questions answered. Adult diet Regular; 5 carb choices (75 gm/meal) 24HR INTAKE/OUTPUT: Intake/Output Summary (Last 24 hours) at 06/21/2023 0821 Last data filed at 06/21/2023 0631 Gross per 24 hour Intake 1275 ml Output 1160 ml Net 115 ml Past Medical History: Past Medical History: Diagnosis Date Abnormal EKG Back pain recent steroid [id number] Cardiac murmur echo 06-14-23 EF 40-45%, moderate to severe aortic valve stenosis Diabetes (HCC) Hypertension PVC's (premature ventricular contractions) LABS: CBC: Recent Labs 06/18/23171306/20/233 06/21/23 0235 WBC 9.1 -- 19.7* RBC 5.08 -- 3.44* HGB 15.0 10.5* 10.2* HCT 44.6 30.3* 30.5* MCV 87.8 -- 88.7 RDW 13.3 -- 13.1 PLT 202 -- 182 BMP: Recent Labs 06/18/23171306/20/233 06/21/23 0235 NA 136 134* 135 K 3.3* 4.0 3.6 CL 103 104 103 CO2 26 19* 25 BUN 14 16 25* CREATININE 0.81 0.83 0.94 GLUCOSE 113* 263* 239* CALCIUM 9.1 8.1* 8.6 ANIONGAP 7 10 7 LIVER PROFILE: Recent Labs 06/18/231713 AST 49* ALT 44 BILITOT 1.0 ALKPHOS 55 PROT 7.4 PT/INR: No results for input(s): PROTIME, INR in the last 72 hours. CARDIAC ENZYMES: No results for input(s): TROPONINI in the last 72 hours. Procalcitonin: No results found for: PROCAL COVID-19 PCR: No results for input(s): COVID19 in the last 72 hours. Objective: Vitals: BP 142/84 (BP Location: Left arm, Patient Position: Lying) Pulse 94 Temp 37.4 C (99.3 F) (Temporal) Resp 20 SpO2 95% Pulse Ox: SpO2 Av % Min: 95 % Max: 97 % Supplemental O2: O2 Flow Rate (L/min): 2 L/min Physical Exam Constitutional: General: He is not in acute distress. Appearance: He is not ill-appearing. Cardiovascular: Heart sounds: Murmur heard. Pulmonary: Effort: No respiratory distress. Abdominal: Tenderness: There is abdominal tenderness (Lower quadrant, at surgical site). Musculoskeletal: Right lower leg: No edema. Left lower leg: No edema. Skin: Coloration: Skin is not jaundiced. Neurological: Motor: Weakness (Bilateral lower extremities) present. Medications: acetaminophen, 1,000 mg, Oral, q6h amLODIPine, 10 mg, Oral, Daily famotidine, 20 mg, Oral, BID [Held by provider] glipiZIDE, 10 mg, Oral, qAM AC hydroCHLOROthiazide, 12.5 mg, Oral, Daily insulin glargine, 10 Units, SubCUTAneous, Nightly insulin lispro, 0-12 Units, SubCUTAneous, TID WC And insulin lispro, 0-12 Units, SubCUTAneous, Nightly insulin lispro, 6 Units, SubCUTAneous, TID WC lisinopril, 20 mg, Oral, Daily sodium chloride 0.9%, 10 mL, IntraVENous, 2 times per day Assessment Data: (CAT1) Reviewed 3 or more notes from different specialty or health system (each=1). (CAT1) Reviewed 3 or more labs/studies ordered by another provider not previously counted (each=1, panels count as 1). (LOW: 2x CAT1 or independent historian MOD: 3x CAT1 or 1x CAT3 EXTENSIVE: 3x CAT1 and 1x CAT3) Acute, acute on chronic, unstable/uncontrolled chronic problems/diagnoses: Hyperglycemia with diabetes mellitus type 2 - patient's home regimen is provide 4 mg daily; severely elevated with steroid use and not covering adequately with meals Constipation S/p ALIF L4/5, L5/S1, PSF L4-S1, lami L1-L5 - on 06/19/23 Stable chronic problems affecting care, new non-acute diagnoses: Hypertension -Home regimen includes amlodipine 10 mg, hydrochlorothiazide 12.5 mg and lisinopril 20mg Aortic valve stenosis-follows with cardiology as outpatient HFrEF-EF 45% GERD Plan As a result of the above findings & factors, the following mgmt was pursued: -Orthopedic surgery is primary -Increase to 14U glargine nightly and 6U TID lispro with meals -- steroids are known to increase postprandial sugars -Blood pressure is stable on home medications -Scheduled Tylenol 1 g every 6 -BRENNA senna + MiraLax given constipation - am labs, replace lytes prn - PT/OT/CM/SW - delirium precautions: increase activity and limit nighttime disturbances - DVT prophylaxis: SCDs and encourage ambulation Advance Directive: Full Code Rhett Toledo DO Division of Hospitalist Medicine [facility] * Rubens Fulton MD - 06/21/2023 7:16 AM EST Images from the original note were not included. Ortho Progress Note Patient: Azar Triplett Date of : 1945 Acct: [id number] PCP: Seferino Hernandez Date of Admission: 06/19/2023 Date of Service: Pt seen/examined on 06/21/2023 SUBJECTIVE: Patient resting well overnight. Denies significant pain. Denies abdominal pain, chest pain, shortness of breath. Ambulated with PT yesterday. Overall doing well. OBJECTIVE: General: alert and oriented to person, place and time, well-developed and well- nourished, in no acute distress VITALS: BP 119/66 Pulse 100 Temp 36.4 C (97.5 F) (Temporal) Resp 18 SpO2 97% MSK exam: Spine Exam: * Exam was limited due to pain: No Direct Spine Inspection: Abdominal dressing C/D/I, posterior lumbar dressing C/D/I, drain in place with bloody drainage HF KE DF EHL PF RLE 3 4+ 4- 4- 4+ Sensation: Intact L2-S1 with normal sensation Pulses: DP Palpable PT Palpable TTP in the following areas: Nontender throughout extremity. Nontender throughout remainder of extremity Pain w Straight leg raise: No HF KE DF EHL PF LLE 3 4+ 3 3 4+ Sensation: Intact L2-S1 with normal sensation Pulses: DP Palpable PT Palpable TTP in the following areas: Nontender throughout extremity. Nontender throughout remainder of extremity Pain w Straight leg raise: No Deep Tendon Reflexes: Right Knee: 1+ Left Knee: 1+ Right Ankle: 1+ Left Ankle: 1+ Right Ankle Clonus: absent Left Ankle Clonus: absent Babinski: downgoing BL Lab Results Component Value Date WBC 19.7 (H) 06/21/2023 HGB 10.2 (L) 06/21/2023 HCT 30.5 (L) 06/21/2023 PLT 182 06/21/2023 ALT 44 06/18/2023 AST 49 (H) 06/18/2023 NA 135 06/21/2023 K 3.6 06/21/2023 CL 103 06/21/2023 CREATININE 0.94 06/21/2023 BUN 25 (H) 06/21/2023 CO2 25 06/21/2023 HGBA1C 7.8 (H) 06/20/2023 No results found for: RH, LABANTI ASSESSMENT AND PLAN: This is a 77 y.o. male with s/p ALIF L4/5, L5/S1, PSF L4-S1, lami L1-L5 -Baclofen 10 mg q12h prn -XR in rad dept POD2 -Drain I/O q shift; Pull when POD3 <20cc x consecutive shifts -Diet: advance diet as tolerated to full -No DVT ppx, SCDs and ambulation -Multimodal pain control regimen ordered -WBAT; up w/ assistance -PT/OT -No spinal precautions -NV checks q4 hrs -Ortho primary Rubens Fulton MD PGY2 Orthopaedic Surgery 06/21/2023 7:18 AM * Rhett Toledo DO - 06/20/2023 2:01 PM EST Images from the original note were not included. Hospitalist Progress Note 06/20/2023 Subjective: Admit Date: 06/19/2023 PCP: Seferino Hernandez Room#: [id number] A Brief Hospital course: 77-year-old male past medical history of hypertension, diabetes mellitus type 2 and chronic back pain who is status post ALIF L4/5, L5/S1, PSF L4-S1, lami L1- L5, medicine is consulted for diabetic and hypertensive management. Interval History: No overnight issues. Patient states he is up walking with physical therapy and he felt a little unsteady on his feet, but otherwise and felt well. Patient states that he knew his sugar levels will goup with the steroids. Patient denies nausea does admit to mild abdominal pain which is associated at the incision site. Patient denies any vomiting, patient has eaten a little bit today but is try toavoid sugars. Patient states his pain is well-controlled. Case and plan discussed with patient and bedside nurse. All questions answered. Adult diet Regular; 5 carb choices (75 gm/meal) 24HR INTAKE/OUTPUT: Intake/Output Summary (Last 24 hours) at 06/20/2023 1401 Last data filed at 06/20/2023 0619 Gross per 24 hour Intake 2629.54 ml Output 2070 ml Net 559.54 ml Past Medical History: Past Medical History: Diagnosis Date Abnormal EKG Back pain recent steroid [id number] Cardiac murmur echo 06-14-23 EF 40-45%, moderate to severe aortic valve stenosis Diabetes (HCC) Hypertension PVC's (premature ventricular contractions) LABS: CBC: Recent Labs 06/18/23171306/20/23 004 WBC 9.1 -- RBC 5.08 -- HGB 15.0 10.5* HCT 44.6 30.3* MCV 87.8 -- RDW 13.3 -- PLT 202 -- BMP: Recent Labs 06/18/23171306/20/2342 NA 136 134* K 3.3* 4.0 CL 103 104 CO2 26 19* BUN 14 16 CREATININE 0.81 0.83 GLUCOSE 113* 263* CALCIUM 9.1 8.1* ANIONGAP 7 10 LIVER PROFILE: Recent Labs 06/18/231713 AST 49* ALT 44 BILITOT 1.0 ALKPHOS 55 PROT 7.4 PT/INR: No results for input(s): PROTIME, INR in the last 72 hours. CARDIAC ENZYMES: No results for input(s): TROPONINI in the last 72 hours. Procalcitonin: No results found for: PROCAL COVID-19 PCR: No results for input(s): COVID19 in the last 72 hours. Objective: Vitals: BP 150/88 (BP Location: Left arm, Patient Position: Lying) Pulse 109 Temp 37.2 C (99 F)(Oral) Resp 18 SpO2 94% Pulse Ox: SpO2 Av.1 % Min: 94 % Max: 100 % Supplemental O2: O2 Flow Rate (L/min): 2 L/min Physical Exam Constitutional: General: He is not in acute distress. Appearance: He is not ill-appearing. Cardiovascular: Heart sounds: Murmur heard. Pulmonary: Effort: No respiratory distress. Abdominal: Tenderness: There is abdominal tenderness (Lower quadrant, at surgical site). Musculoskeletal: Right lower leg: No edema. Left lower leg: No edema. Skin: Coloration: Skin is not jaundiced. Neurological: Motor: Weakness (Bilateral lower extremities) present. Medications: acetaminophen, 1,000 mg, Oral, q6h amLODIPine, 10 mg, Oral, Daily famotidine, 20 mg, Oral, BID [Held by provider] glipiZIDE, 10 mg, Oral, qAM AC hydroCHLOROthiazide, 12.5 mg, Oral, Daily insulin glargine, 10 Units, SubCUTAneous, Nightly insulin lispro, 0-12 Units, SubCUTAneous, TID WC And insulin lispro, 0-12 Units, SubCUTAneous, Nightly insulin lispro, 0-6 Units, SubCUTAneous, TID WC And insulin lispro, 0-6 Units, SubCUTAneous, Nightly insulin lispro, 6 Units, SubCUTAneous, TID WC lisinopril, 20 mg, Oral, Daily sodium chloride 0.9%, 10 mL, IntraVENous, 2 times per day Assessment Data: (CAT1) Reviewed 3 or more notes from different specialty or health system (each=1). (CAT1) Reviewed 3 or more labs/studies ordered by another provider not previously counted (each=1, panels count as 1). (LOW: 2x CAT1 or independent historian MOD: 3x CAT1 or 1x CAT3 EXTENSIVE: 3x CAT1 and 1x CAT3) Acute, acute on chronic, unstable/uncontrolled chronic problems/diagnoses: Hyperglycemia with diabetes mellitus type 2 - patient's home regimen is provide 4 mg daily; severely elevated with steroid use and not covering adequately with meals S/p ALIF L4/5, L5/S1, PSF L4-S1, lami L1-L5 - on 06/19/23 Stable chronic problems affecting care, new non-acute diagnoses: Hypertension -Home regimen includes amlodipine 10 mg, hydrochlorothiazide 12.5 mg and lisinopril 20mg Aortic valve stenosis-follows with cardiology as outpatient HFrEF-EF 45% GERD Plan As a result of the above findings & factors, the following mgmt was pursued: -Orthopedic surgery is primary -Will increase patient's diabetic regiment while inpatient, will add on nightly long-acting and will add on mealtime insulin scheduled as steroids are known to increase postprandial sugars -Blood pressure is stable on home medications -Scheduled Tylenol 1 g every 6 - am labs, replace lytes prn - PT/OT/CM/SW - delirium precautions: increase activity and limit nighttime disturbances - DVT prophylaxis: SCDs and encourage ambulation Advance Directive: Full Code Rhett Toledo DO Division of Hospitalist Medicine [facility] * Estelita Augustine, PT - 06/20/2023 11:47 AM EST Images from the original note were not included. PHYSICAL THERAPY [facility] Initial Evaluation Name/MRN: Azar Triplett ([id number]) Evaluation Date: 06/20/2023 Date of : 1945 Admission Date: 06/19/2023 6:04 AM Age: 77 y.o. [facility] Discharge Recommendation: 24 hour supervision or assist, Home with Home health PT Equipment Needed: No Other: Owns a FWW Assessment IMPRESSION: Pt is s/p ALIF L4-S1, PSF L4-S1, and Laminectomy L1-5 06/19/23. He is currently SBA-Min assist for bed mobility, transfers, and ambulation. Reported chronic foot drop L LE that he reports feels a little better since surgery. He is hoping to return to home soon, willing to try Home HealthPT. Anticipate pt to continue to progress to disch to home with assist 20/11 and Home Health PT. Diagnosis: s/p ALIF L4-S1, PSF L4-S1, and Laminectomy L1-5 06/19/23. Prognosis: fair Performance Deficits /Impairments: Increased Pain, Decreased Functional Mobility, Decreased Endurance, and Decreased Balance Decision Making: Medium Complexity Subjective Pt in the bed and agreeable to PT. RN just finished medicating pt. Pt reported pain is minimal and that the L LE strength does feel a little better since surgery. Pain: RN managing pain. 0-10 pain scale: 5/10 Location: Incision Past Medical History: Past Medical History: Diagnosis Date Abnormal EKG Back pain recent steroid [id number] Cardiac murmur echo 06-14-23 EF 40-45%, moderate to severe aortic valve stenosis Diabetes (HCC) Hypertension PVC's (premature ventricular contractions) Past Surgical History: Past Surgical History: Procedure Laterality Date ACHILLES TENDON SURGERY APPENDECTOMY BACK SURGERY 2006 herniated disc HERNIA REPAIR Left LUMBAR FUSION 06/19/2023 LUMBAR 4/5-SACRAL 1, TOTAL KNEE ARTHROPLASTY Right WISDOM TOOTH EXTRACTION Admission Diagnosis: Patient Active Problem List Diagnosis Date Noted Spondylolisthesis of lumbosacral region 06/19/2023 Delayed emergence from anesthesia 06/18/2023 Medical Precautions: No active isolations Proper PPE donned/doffed in accordance with facility standards. Fall Risk: Haro Fall Risk Score: 60 (High Risk) Precautions/Restrictions: Right LE Weight Bearing: Weight Bearing As Tolerated Left LE Weight Bearing: Weight Bearing As Tolerated Spine Precautions: No Bending, No Lifting, No Twisting for comfort Lines/Drains/Airways: x1 hemovac drain. Family/Caregiver Present: child(halima) (son Perry) Overall Cognitive Status: WNL Overall Orientation Status: Oriented x4 Vision: not assessed this session Hearing: normal Social/Functional History Patient admitted from home. Lives With: Spouse Type of Home: single family home Home Layout: Single Level Home Home Access: Level Entry Bathroom Shower/Tub: Toilet: N/A Home Equipment: front wheeled walker, cane, and hospital bed Homemaking Responsibilities: Independent Receives Help From: None Active Hand Cigar Maker: No (transports with horse and buggey) Son in room reported would not be able to assist much at home. Other family will be able to come in some to assist, but not consistently. Prior Level of Function ADL Assistance: Independent Ambulation Assistance: Independent with cane Transfer Assistance: Independent No prior bracing for the LE's. Reported some falls at home from weakness, including one in the past week. Objective Lower Extremity Assessment AROM: Exceptions: Decreased L ankle DF (just below neutral) PROM: Not assessed this session Strength: WNL 4+/5 knee extension bilat and R foot ankle DF. L ankle DF 3-/5 Bed Mobility: Supine to sit: Min Assist Rolling to right: Mod Assist Scooting: SBA HOB nearly flat, use of bed rails. Transfers Sit to stand: Contact Guard Stand to sit: Contact Guard Ambulation Ambulation 1 Assistive device(s) used: front wheeled walker Assist level: Contact Guard Distance (ft): 21 ft in room Quality of gait: slow clark, steppage gait for chronic R foot drop. Forward flexed posture (cues for upright stance) Exercises Exercises Knee Long Arc Quad: x10 bilat LE's Ankle Pumps: x10 bilat LE's Outcome Measures AM-PAC How much HELP from another person do you currently need Turning from your back to your side while in a flat bed without using bedrails?: A Little Moving from lying on your back to sitting on the side of a flat bed without using bedrails?: A Little Moving to and from a bed to a chair (including a wheelchair)?: A Little Standing up from a chair using your arms (wheelchair or bedside chair)?: A Little Walking in a hospital room?: A Little Stair climbing assessed?: No AM-PAC Inpatient Mobility Raw Score (No Stairs) : 15 JH-HLM -HLM Score: Walked 10 steps or more (i.e. walked to restroom) Plan Pt would benefit from skilled acute PT services to address Strengthening, ROM, Balance Training, Functional Mobility Training, Endurance Training, Gait Training, Safety Education and Training, Patient/Caregiver Training, Positioning, and Self-Care/ADL Training. Frequency: 5x/week for 2 weeks Barriers: Pain, Limited family support, Decreased endurance, and Lower extremity weakness Safety/Education Safety Safety Devices in place: call light within reach, left in chair, gait belt, patient at risk for falls, and nurse notified Restraints: No Education Education Given To: patient Education Provided: PT Role, PT Goals, Gait Training, Plan of Care, Precautions, Transfer Training,Discharge Recommendations, and Benefits of Increasing Activity Education Method: Verbal and Demonstration Barriers to Learning: None Education Outcome: Verbalized Understanding Goals Patient Stated Goal: TO return to home with family Encounter Problems Encounter Problems (Active) Balance Patient will maintain dynamic standing balance for 10 minutes with modified independence in order to demonstrate decreased risk of falling. Start: 06/20/23 Expected End: 07/04/23 Mobility Patient will ambulate 100 feet with modified independence and rolling walker in order to improve safety and independence with mobility. Start: 06/20/23 Expected End: 07/04/23 Pain - Adult Transfers Patient will perform bed mobility with Modified independence in order to improve independence and prepare for out of bed mobility. Start: 06/20/23 Expected End: 07/04/23 Reported he will have a hospital bed at home. Patient will complete functional transfer with least restrictive device with modified independence in order to prepare for ambulation. Start: 06/20/23 Expected End: 07/04/23 Therapy Time Individual Co-treatment Time In 1000 Time Out 1040 Minutes 40 Timed Code Treatment Minutes: (x1 Gait) Estelita Augustine PT Patient's Physical Therapy Plan of Care supervision is transferred to a [facility] Therapy Services Physical Therapist. Goals and/or treatment plan was established in collaboration with patient/family/other representatives. * Sheng Mazariegos MD - 06/20/2023 9:49 AM EST Images from the original note were not included. Department of General Surgery Vascular Service Daily Progress Note ADMIT DATE: 06/19/2023 TODAY'S DATE: 06/20/2023 SUBJECTIVE: No acute events overnight. Pain is well controlled on current medications. Denies nausea and vomiting. Has not yet ambulated. Only took one tylenol this morning for pain which helped a lot. ROS: Noted above unless otherwise mentioned. OBJECTIVE: VITALS: Temp: [36.1 C (97 F)-37.8 C (100.1 F)] 37.8 C (100.1 F) Heart Rate: [86-111] 109 Resp: [14-25] 18 BP: (106-157)/(55-92) 150/88 Arterial Line BP 1: (121)/(56) 121/56 INTAKE/OUTPUT: Intake/Output Summary (Last 24 hours) at 06/20/2023 0950 Last data filed at 06/20/2023 0619 Gross per 24 hour Intake 3629.54 ml Output 3870 ml Net -240.46 ml I/O last 3 completed shifts: In: 3629.5 [I.V.:3105.5; IV Piggyback:524] Out: 3870 [Urine:2125; Drains:545; Blood:1200] No intake/output data recorded. PHYSICAL EXAM: Gen: NAD, A&Ox3, pain well controlled Heart: RRR, well perfused. Lungs: Symmetric chest rise, normal work of breathing, no respiratory distress. Abd: Soft, non-tender, non-distended. Incision with overlying dressing, no apparent saturation. Ext: Non-edematous, non-erythematous, no tenderness. Able to move BLE with good strength. Skin: Warm, dry, well perfused, no obvious rashes, cellulitis or gross discoloration LABS CBC: Auto WBC Date Value Ref Range Status 06/18/2023 9.1 3.6 - 10.7 10*3/uL Final Hemoglobin Date Value Ref Range Status 06/20/2023 10.5 (L) 13.0 - 18.0 g/dL Final 06/18/2023 15.0 13.0 - 18.0 g/dL Final Platelets Date Value Ref Range Status 06/18/2023 202 140 - 440 10*3/uL Final BMP: SODIUM Date Value Ref Range Status 06/20/2023 134 (L) 135 - 145 mmol/L Final 06/18/2023 136 135 - 145 mmol/L Final POTASSIUM Date Value Ref Range Status 06/20/2023 4.0 3.5 - 5.1 mmol/L Final 06/18/2023 3.3 (L) 3.5 - 5.1 mmol/L Final CHLORIDE Date Value Ref Range Status 06/20/2023 104 98 - 107 mmol/L Final 06/18/2023 103 98 - 107 mmol/L Final CARBON DIOXIDE Date Value Ref Range Status 06/20/2023 19 (L) 22 - 30 mmol/L Final 06/18/2023 26 22 - 30 mmol/L Final UREA NITROGEN Date Value Ref Range Status 06/20/2023 16 9 - 20 mg/dL Final 06/18/2023 14 9 - 20 mg/dL Final CREATININE Date Value Ref Range Status 06/20/2023 0.83 0.66 - 1.25 mg/dL Final 06/18/2023 0.81 0.66 - 1.25 mg/dL Final Hepatic: AST (SGOT) Date Value Ref Range Status 06/18/2023 49 (H) 15 - 46 U/L Final ALT Date Value Ref Range Status 06/18/2023 44 0 - 49 U/L Final ALBUMIN Date Value Ref Range Status 06/18/2023 4.2 3.5 - 5.0 g/dL Final BILIRUBIN, TOTAL Date Value Ref Range Status 06/18/2023 1.0 0.2 - 1.3 mg/dL Final ALKALINE PHOSPHATASE Date Value Ref Range Status 06/18/2023 55 38 - 126 U/L Final Current Inpatient Medications Scheduled Meds:acetaminophen, 650 mg, Oral, q6h amLODIPine, 10 mg, Oral, Daily dexAMETHasone, 10 mg, IntraVENous, q8h famotidine, 20 mg, Oral, BID [Held by provider] glipiZIDE, 10 mg, Oral, qAM AC hydroCHLOROthiazide, 12.5 mg, Oral, Daily insulin lispro, 0-6 Units, SubCUTAneous, TID WC And insulin lispro, 0-6 Units, SubCUTAneous, Nightly lisinopril, 20 mg, Oral, Daily sodium chloride 0.9%, 10 mL, IntraVENous, 2 times per day Continuous Infusions:lactated Ringer's, 50 mL/hr, Last Rate: Stopped (06/19/23 1410) PRN Meds:PRN medications: baclofen, dextrose, dextrose, glucagon (rDNA), glucose, HYDROmorphone OR HYDROmorphone, hydrOXYzine HCl, naloxone, ondansetron ODT OR ondansetron, oxyCODONE-acetaminophen OR oxyCODONE- acetaminophen, polyethylene glycol (PEG) 3350, sodium chloride, sodium chloride 0.9% ASSESSMENT: 77 y.o. male s/p ALIF L4/5, L5/S1, PSF L4-S1, Laminectomy L1-L5 with Dr. Page with Dr. Pradhan for additional vascular exposure. Patient doing well post- operatively from vascular perspective. PLAN: - Drain management per orthopedics - Pain and nausea medications PRN - OOBA - Vascular surgery to sign off, please call with questions or concerns Will discuss with Dr. Pradhan. Sheng Mazariegos MD General Surgery PGY-1 Pager [phone] Associated attestation - Karol Pradhan MD - 06/21/2023 2:36 PM EST I have evaluated the patient and agree with the resident assessment and plan except for additional comments made in this note. * Tosin Aguila MD - 06/20/2023 6:23 AM EST Images from the original note were not included. Ortho Progress Note Patient: Azar Triplett Date of : 1945 Acct: [id number] PCP: Seferino Hernandez Date of Admission: 06/19/2023 Date of Service: Pt seen/examined on 06/20/2023 SUBJECTIVE: Patient resting well overnight. Was able to sleep some. Denies significant pain. Denies abdominal pain, chest pain, shortness of breath. Has not yet ambulated. Overall doing well. OBJECTIVE: General: alert and oriented to person, place and time, well-developed and well- nourished, in no acute distress VITALS: BP 147/92 Pulse 111 Temp 37.7 C (99.8 F) (Temporal) Resp 16 SpO2 94% MSK exam: Spine Exam: * Exam was limited due to pain: No Direct Spine Inspection: Abdominal dressing C/D/I, posterior lumbar dressing C/D/I, drain in place with bloody drainage HF KE DF EHL PF RLE 3 4+ 4+ 4+ 4+ Sensation: Intact L2-S1 with normal sensation Pulses: DP Palpable PT Palpable TTP in the following areas: Nontender throughout extremity. Nontender throughout remainder of extremity Pain w Straight leg raise: No HF KE DF EHL PF LLE 3 4+ 3 3 4+ Sensation: Intact L2-S1 with normal sensation Pulses: DP Palpable PT Palpable TTP in the following areas: Nontender throughout extremity. Nontender throughout remainder of extremity Pain w Straight leg raise: No Deep Tendon Reflexes: Right Knee: 1+ Left Knee: 1+ Right Ankle: 1+ Left Ankle: 1+ Right Ankle Clonus: absent Left Ankle Clonus: absent Babinski: downgoing BL Lab Results Component Value Date WBC 9.1 06/18/2023 HGB 10.5 (L) 06/20/2023 HCT 30.3 (L) 06/20/2023 PLT 202 06/18/2023 ALT 44 06/18/2023 AST 49 (H) 06/18/2023 NA 134 (L) 06/20/2023 K 4.0 06/20/2023 CL 104 06/20/2023 CREATININE 0.83 06/20/2023 BUN 16 06/20/2023 CO2 19 (L) 06/20/2023 No results found for: RH, LABANTI ASSESSMENT AND PLAN: This is a 77 y.o. male with s/p ALIF L4/5, L5/S1, PSF L4-S1, lami L1-L5 -Decadron 10 mg q8h x 3 doses -Baclofen 10 mg q12h prn -Ancef 2 g q8h x 24hrs -XR in rad dept POD2 -Drain I/O q shift; Pull when POD3 <20cc x consecutive shifts -Diet: advance diet as tolerated to full -No DVT ppx, SCDs and ambulation -Multimodal pain control regimen ordered -WBAT; up w/ assistance -PT/OT -No spinal precautions -NV checks q4 hrs -Ortho primary TOSIN AGUILA MD 06/20/2023 documented in this [facility]02-24-2024 Miscellaneous Notes* Care Coordination - Unknown Case Management - 06/23/2023 3:20 PM EST Patient Choice Patient Name: AZAR TRIPLETT Date of : 1945 All Providers Sent Referral Name: [facility] Address: [address] [place] [address] * Care Coordination - Yovana Mcmillan RN - 06/23/2023 1:01 PM EST TCC tasked to follow over weekend. Patient's drain remains in place. No DC orders noted yet. Patient to dc to [facility]. TCC to follow. Jenn reached out to this TCC to ask facility if pt can dc to them with accordion drain in place. Awaiting response. Facility able to medically manage drain. Son to transport. Patient to dc to [facility] today. RN,, son, community recreation programmer and facility all updated. FELIBERTO completed. * Care Coordination - Radha Martinez RN - 06/22/2023 2:36 PM EST Per ortho Dr. Fulton patient drain output is too high and that makes patient not ready for discharge. TCC to assist and follow as needed. * Care Coordination - Radha Martinez RN - 06/22/2023 2:06 PM EST Patient and son requesting referral to [facility]. TCC called [facility]. SOURCER tasked to make referral to [facility]. Specifics provided per request to [facility]. Dr. Toledo secure messaged and patient is medically stable for discharge. TCC secure messaged Ortho regarding medically stable for discharge. Per OT patient did not work on transfer to car, had worked on transfer to chair. If patient has assist should be able to transfer to car. Tasked weekend TCC to assist with discharge tomorrow. TCC to assist and follow as needed. * Home Care - Yajaira Carrillo RN - 06/22/2023 12:10 PM EST Spoke with pt and family member, Perry, at bedside. Pt and family decided they would prefer SNF placement for short time prior to dc home. Perry stated this is already approved through their insurance fund. Denied DME needs. TCC aware and working on referrals. * Care Coordination - Dale Varela - 06/22/2023 11:37 AM EST Referral placed to SNF- [facility] via [facility] per TCC request. Await review and response regarding ability to accept. TCC notified. * Care Coordination - Radha Martinez RN - 06/22/2023 9:46 AM EST Images from the original note were not included. Care Management Progress Note Patient remains on H6 s/p anterior lumbar fusion 06/19/2023. Reg 5 carb choice diet noted. Per RN accordian drain with increase output. PT/OT noted. Discharge plan is to spouse home with therapy at home. TCC to assist and follow as needed. Discharge Milestones and Delays Expected Date/Time: 06/23/[address] discharge order Complete med reconciliation Case mgmt discharge readiness Clinical Stability Diagnsotic Workup Expected Discharge History Expected Date/Time Set By Reviewed At 06/23/2023 Radha Martinez RN 06/22/2023 8:55 AM 06/23/2023 Radha Martinez RN 06/21/2023 8:27 AM 06/21/2023 Radha Martinez RN 06/20/2023 8:33 AM 06/21/2023 Tosin Aguila MD 06/19/2023 5:37 PM 06/21/2023 Tosin Aguila MD 06/19/2023 2:26 PM 06/23/2023 Guerda Alvarez MD 06/19/2023 6:13 AM Length of Stay (Days): 3 GMLOS: 3.7 * Care Plan - Nikki Tompkins RN - 06/22/2023 9:36 AM EST Problem: Pain - Adult Goal: Verbalizes/displays adequate comfort level or baseline comfort level Outcome: Progressing Flowsheets (Taken 06/22/2023934) Verbalizes/displays adequate comfort level or baseline comfort level: Encourage patient to monitor pain and request assistance Assess pain using appropriate pain scale Administer analgesics based on type and severity of pain and evaluate response Implement non-pharmacological measures as appropriate and evaluate response Consider cultural and social influences on pain and pain management Notify Licensed Independent Practitioner if interventions unsuccessful or patient reports new pain Problem: Safety - Adult Goal: Free from fall injury Outcome: Progressing Flowsheets (Taken 06/22/2023934) Free from fall injury: Instruct family/caregiver on patient safety Based on caregiver fall risk screen, instruct family/caregiver to ask for assistance with transferring infant if caregiver noted to have fall risk factors Problem: Discharge Planning Goal: Discharge to home or other facility with appropriate resources Outcome: Progressing Flowsheets (Taken 06/22/2023934) Discharge to home or other facility with appropriate resources: Identify barriers to discharge with patient and caregiver Arrange for needed discharge resources and transportation as appropriate Identify discharge learning needs (meds, wound care, etc) Arrange for interpreters to assist at discharge as needed Refer to discharge planning if patient needs post-hospital services based on physician order or complex needs related to functional status, cognitive ability or social support system * Care Plan - Leisa Goldsmith RN - 06/21/2023 10:40 PM EST Problem: Pain - Adult Goal: Verbalizes/displays adequate comfort level or baseline comfort level Outcome: Progressing Problem: Safety - Adult Goal: Free from fall injury Outcome: Progressing Problem: Discharge Planning Goal: Discharge to home or other facility with appropriate resources Outcome: Progressing * Care Coordination - Radha Martinez RN - 06/21/2023 8:27 AM EST Patient remains on H6 s/p anterior lumbar fusion 06/19/2023. Reg 5 carb choice diet noted. Per RN accordian drain with increase output. PT/OT noted. Discharge plan is to spouse home with therapy at home. TCC to assist and follow as needed. * Care Plan - Carrie Hagen RN - 06/21/2023 6:45 AM EST Problem: Pain - Adult Goal: Verbalizes/displays adequate comfort level or baseline comfort level Outcome: Progressing Problem: Safety - Adult Goal: Free from fall injury Outcome: Progressing Problem: Discharge Planning Goal: Discharge to home or other facility with appropriate resources Outcome: Progressing * Care Coordination - Radha Martinez RN - 06/20/2023 2:29 PM EST Care Managment Initial Assessment Date: 06/20/2023 Patient Name: Azar Triplett : 1945 Patient Information Source of Information: Patient Cognition/Language: WFL - Within Functional Limits 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 as indicated: Yes Confirmation of Payer with patient/family: Yes Payer Name: [employer] : No Confirmation of Primary Care Physician: Confirmed PCP Name: Seferino Hernandez Seen in last 2 years?: Yes Primary Caregiver: Self If assistance needed, confirmed caregiver ready, willing and able to care for patient at discharge:Yes Confirmed with: spouse Living Arrangements Current Residence: House Number of Floors 3 Number of Entry Steps: 2 Bed/Bath Levels: Separate floors Facility: Facility Name: Plan to Return: Lives with: Alone Support Systems: Spouse/significant other (Patient to go stay with spouse) Activities of Daily Living Ambulation: Independent Bathing/Dressing: Independent Elimination/Continence/Toileting: Independent Feeding: Independent Who Assists with Activities of Daily Living: Instrumental Activities of Daily Living Prescription Coverage: Yes Pharmacy Used: [facility] Medication Management: Independent Transportation/Shopping: (van, son will set up) Transportation Mode: Needs Assistance with Transportation at Discharge: No, Comments (son will arrange van transport home) Meal Preparation: Independent Laundry/Cleaning: Independent Finances/Bill Paying: Independent Communication: Independent Types of Care Services/Equipment Utilized Care Services: Dialysis Type: Durable Medical Equipment: Cane, Walker Patient's Goal/Discharge Plan Patient expects to be discharged to: home with home care Discharge Planning Actions: Continue to follow Patient's Choice Rights and [employer] and Collaborative Relationships Disclosed as Indicated for Post-Acute Care: Interdisciplinary Team Engagement: PT/OT Social Work Referral for: Additional Information: Patient admitted to H6 s/p anterior lumbar fusion. Reg 5 carb choice diet noted. Per RN accordian drain with increase output. PT/OT noted. PT recommending 24 hour supervision and home therapy. Met with pt at bedside, introduced self and explained role of TCC. Pt has insurance with RX coverage, active with PCP. Patient is Sabianism, son is in the room. Patient lives alone. Patient is going to stay with spouse after surgery. Son will arrange van transport home. Patient is agreeable to therapy at home. TCC to assist and follow as needed. Radha Martinez RN * Home Care - Yajaira Carrillo RN - 06/20/2023 2:25 PM EST Beam Warper following case for Discharge Needs. * Care Plan - Carrie Hagen RN - 06/20/2023 7:01 AM EST Problem: Pain - Adult Goal: Verbalizes/displays adequate comfort level or baseline comfort level Outcome: Progressing Problem: Safety - Adult Goal: Free from fall injury Outcome: Progressing Problem: Discharge Planning Goal: Discharge to home or other facility with appropriate resources Outcome: Progressing * Perioperative Nursing Note - Francesca Carolina RN - 06/19/2023 4:13 PM EST Pt son, Perry, updated at this time. Pt family leaving for dinner- asked to be called once pt has room assigned. * Perioperative Nursing Note - Perry Medina RN - 06/19/2023 3:47 PM EST Patient report is called to H6 LOUIS Gilman and denies any further questions at this time. Patient is resting comfortably at this time and asleep but arouses to voice. * Op Note - Karol Pradhan MD - 06/19/2023 7:30 AM EST OPERATIVE NOTE Azar Milla Uziel 1945 DATE OF PROCEDURE: 06/19/2023 SURGEON: Karol Pradhan MD, Kalyee REYNOSO Procedure: Anterior lumbar spine exposure with discectomy and fusion of L4-S1 Preoperative Diagnosis: Degenerative disc disease of L4-S1 Postoperative Diagnosis: Same Anesthesia: General. Assist: Josefina Estimated Blood Loss: 200 cc Indications: 77-year-old white male brought to the operating room by Dr. Page for an anterior lumbar spine approach. Description of Procedure: Patient was placed in the supine position and general anesthesia was induced. Abdomen was shaved prepped and draped in the usual sterile fashion. A transverse left lower quadrant incision was made and through this incision the left rectus sheath was identified. A Z shaped incision was made in the left rectus sheath and then the left rectus muscle was retracted laterally.Using blunt dissection the retroperitoneum was dissected down to the iliac vessels and spine. The L5-S1 disc space was exposed between the iliac vessels. The middle sacral artery and vein were ligated with hemoclips and divided to facilitate the exposure. The L4-5 disc space was exposed by mobilizin g the aorta and vena cava to the right side of the spine and several lumbar branches were ligated to facilitate this exposure. Once both levels were adequately exposed Dr. Page proceeded with his portion of the case which will be dictated separately. Once he was finished the retractors were removed placing the iliac vessels and retroperitoneum back into normal position. The anterior rectus sheath was then reconstructed with 0 PDS suture followed by subcutaneous closure and skin isabel. Estimated blood loss for the procedure was 200 cc and sponge needle counts were correct at the end of the case. Karol Pradhan MD * Op Note - Guerda Alvarez MD - 06/19/2023 7:30 AM EST OPERATIVE NOTE Patient Name: Azar Triplett : 1945 DATE OF PROCEDURE: 06/19/2023 SURGEON: Guerda Page MD PREOPERATIVE DIAGNOSES: Spondylolisthesis, Stenosis POSTOPERATIVE DIAGNOSES: Same PROCEDURE: Anterior Lumbar Interbody Fusion L4-5-S1, LT Peek Cage, Bone Morphogenic Protein Posterior Fusion L4-5-S1, Decompression G7-2-4-4-5-S1, Solera Pedicle Instrumentation, Local Bone ANESTHESIA: General ESTIMATED BLOOD LOSS: 1000 cc INDICATION FOR PROCEDURE: Back and leg pain DESCRIPTION OF PROCEDURE: The patient is a 77-year-old gentleman who comes in with back and bilateral leg pain with claudication from severe multilevel spinal stenosis and segmental instability nonresponsive to conservative care. In the OR prior to the induction of anesthesia he was identified. After adequate of anesthesia he was positioned on the flat Myke table supine. We used preoperative antibiotics compression boots and TXA. His abdominal and pelvic region was prepped and draped in usual sterile fashion. Timeoutwas performed. The anterior exposure was performed by Dr. Karol Pradhan which will be dictated under separate heading. Dr. Pradhan gave us excellent visualization of the anterior L4-5 and L5-S1 disc spaces with radiologic markers marking her levels. We entered the 4 5 disc and with pituitaries performed a subtotal discectomy. Using sequential dilators and sizers we were able to reduce the spondylolisthesis and restore the disc height to 10 mm. Double barrel LT cage boat hand was then tamped into position. We reamed to 32 mm x 2. We inserted a size 14 x 23 threaded LT peek cages x 2. IntraOpfluoroscopy confirmed good position and alignment. Retractors and distractors then reapplied at L5-S1. Once again disc was prepared discectomy performed with a pituitary. We distracted to a height of10 mm. A double barrel size 14 LT peek cage boat hand used. We reamed to 32 mm x 2. 14 x 23 LT peek c ages x 2 were threaded in the position. IntraOp fluoroscopy confirmed good position alignment. Hemostasis was confirmed. The cages at L4-5 and L5-S1 were packed with bone morphogenic protein and a collagen sponge per FDA protocol. Hemostasis was confirmed. Closure will be performed by vascular surgery dictated under separate heading. Under the same anesthesia patient was then positioned prone on the prone Myke table. Padding wasconfirmed throughout. We used preoperative antibiotics compression boots and TXA. We marked her levels with IntraOp fluoroscopy. The posterior lumbar region was prepped and draped in usual sterile fashion. Timeout was performed. Midline incision was made from L1-S1. Fascia was incised and expose the laminas from L1 to the sacrum and the transverse process at L4-L5 and the sacral ala. We identified the pedicles at the junction of the pars and transverse process. We then burred starting holes past gearshift probes palpated the inner vaughan with blunt pelter probes and used 6.5 x 40 mm Solera pedicle screws at bilateral L4 and left L5 and bilateral S1. We directly stimulated each pedicle screw and adequate spinal potentials recorded. IntraOp fluoroscopy confirmed good position and alignment. Appropriate rods and connectors were applied and tightened down. At this point we commenced our decompression with a rongeur taking out the spinous process of L1-L2 L3-L4-L5 and S1. We entered the L5-S1 interlaminar window. With a #4 Kerrison marching proximally we took off the laminas of L5 L4 L3 L2 and L1. Then decompressed into the bilateral L1-L2 L3-L4-L5 and S1 neuroforamen undercutting the facet joints and mobilizing the nerve roots bilaterally. We decorticated the transverse process facetjoints at L4-L5 and the sacral ala. We took a local bone morselized and a bone mill and packed it into the posterolateral gutters. Appropriate rods and connectors were applied and final tightened wasapplied. Valsalva maneuver was performed no CSF leak was seen. Wound was thoroughly irrigated hemostasis confirmed. Deep Hemovac drain placed. Fascia closed with Vicryl. Skin closed with Vicryl and isabel. Sponge and needle counts were correct sterile dressings were applied. He was positioned supine extubated and brought to the recovery room in stable condition. * Brief Op Note - Tosin Aguila MD - 06/19/2023 7:30 AM EST Date: 06/19/2023 Location: [facility] OR Name: Azar Triplett, : 1945, Diagnosis Pre-op Diagnosis * Spondylolisthesis, lumbosacral region [M43.17] Post-op Diagnosis * Spondylolisthesis, lumbosacral region [M43.17] Procedures ANTERIOR LUMBAR INTERBODY FUSION LUMBAR 4/5-SACRAL 1, INTERBODY DEVICE BONE MORPHOGENETIC PROTEIN, POSTERIOR FUSION LUMBAR 4/5-SACRAL 1, DECOMPRESSION LUMBAR 7-9-0-4-5-SACRAL 1, PEDICLE INSTRUMENTATION AND LOCAL BONE 73440 - [place] ARTHRD ANT INTERBODY MIN DSC LUMBAR ANTERIOR MICRODISCECTOMY AND FUSION EACH ADDITIONAL LEVEL 26278 - [place] ARTHRD ANT NTRBD MIN DSC EA ADDL INTERSPACE INSERTION OF INTERBODY BIOMECHANICAL DEVICE 22088 - [place] INSJ BIOMCHN DEV INTERVERTEBRAL DSC SPC W/ARTHRD POSTERIOR LUMBAR FUSION 96926 - [place] ARTHRODESIS POSTERIOR/PSTLAT TQ 1NTRSPC LUMBAR POSTERIOR OR POSTEROLATERAL FUSION EACH ADDITIONAL LEVEL 71069 - [place] ARTHRODESIS PST/PSTLAT TQ 1NTRSPC EA ADDL NTRSPC POSTERIOR LUMBAR LAMINECTOMY FACETECTOMY FORAMINOTOMY AND DECOMPRESSION 79995 - [place] AGUILLON FACETECTOMY & FORAMOTOMY 1 VRT SGM LUMBAR POSTERIOR CERVICAL/THORACIC/LUMBAR LAMINECTOMY FACETECTOMY FORAMINOTOMY AND DECOMPRESSION EACH ADDITIONAL 37579 - [place] AGUILLON FACETECTOMY&FORAMOT 1 VRT SGM EA ADDL SGM POSTERIOR SPINAL INSTRUMENTATION 3 TO 6 LEVELS 57164 - [place] POSTERIOR SEGMENTAL INSTRUMENTATION 3-6 VRT SEG Surgeons * Guerda Page V - Primary * Karol Pradhan - Assisting Procedure Summary Anesthesia: General ASA: III Estimated Blood Loss: 1200 mL Drains: Closed/Suction Drain Inferior Back Accordion 10 Fr. (Active) Urethral Catheter Straight-tip 16 Fr. (Active) Implants Type Name Action Serial No. Graft KIT INFUSE BONE GRAFT XL 8.0CC - [id number] Used, Not Implanted Spinal Hardware CAGE SPINE LUMBAR 14X17.5X23MM - [id number] Implanted Spinal Hardware SCREW SPINAL [id number] - [id number] Implanted Spinal Hardware SCREW SET TI SPINAL BREAK OFF - [id number] Implanted Spinal Hardware JODY SPNL CROMALLOY BENT 5.5X55 - [id number] Wasted Spinal Hardware JODY SPNL CROMALLOY BENT 5.5X60 - [id number] Implanted Staff: Tutoring Clinician: Jewel Shaw RN; Conor Pinto RN Scrub Person: Allen Bowman Findings: See full op note Complications: None; patient tolerated the procedure well. Specimens Collected: Order Name Source Comment Collection Info Order Time POTASSIUM WITH MG REFLEX For patients on dialysis to draw potassium day of surgery 06/19/2023 6:13 AM PROTHROMBIN TIME If patient on coumadin within 4 days prior. 06/19/2023 6:13 AM Wound Class: Class I: Clean Blood Products: None Prophylactic Antibiotics: Procedure appropriate prophylactic antibiotic(s) given within 1 hour of surgical incision (two hours if receiving Vancomycin or flouroquinolone) Plan -Decadron 10 mg q8h x 3 doses -Baclofen 10 mg q12h prn -Ancef 2 g q8h x 24hrs -Drain I/O q shift; Pull when POD3 <20cc x consecutive shifts -Diet: advance diet as tolerated to full -No DVT ppx, SCDs and ambulation -Multimodal pain control regimen ordered -WBAT; up w/ assistance -PT/OT -No spinal precautions -NV checks q4 hrs -Ortho primary documented in this [facility]02-24-2024 Note* Care Coordination - Unknown Case Management - 06/23/2023 3:20 PM EST Patient Choice Patient Name: AZAR TRIPLETT Date of : 1945 All Providers Sent Referral Name: [facility] Address: [address] [place] [address] [id number]* Care Coordination - Unknown Case Management - 06/23/2023 3:20 PM EST Patient Choice Patient Name: AZAR TRIPLETT Date of : 1945 All Providers Sent Referral Name: [facility] Address: [address] [place] [address] [id number] NoteHospitalist Progress Note 06/23/2023 Subjective: Admit Date: 06/19/2023 PCP: Seferino Hernandez Room#: [id number] A Brief Hospital course: 77-year-old male past medical history of hypertension, diabetes mellitus type 2 and chronic back pain who is status post ALIF L4/5, L5/S1, PSF L4-S1, lami L1-L5, medicine is consulted for diabetic and hypertensive management. Interval History: 06/23: Drain still in place. Plan is SNF once drain able to be pulled. Adult diet Regular; 5 carb choices (75 gm/meal) 24HR INTAKE/OUTPUT: Intake/Output Summary (Last 24 hours) at 06/23/2023 1203 Last data filed at 06/23/2023 0615 Gross per 24 hour Intake 550 ml Output 585 ml Net -35 ml Past Medical History: Past Medical History: Diagnosis Date Abnormal EKG Back pain recent steroid [id number] Cardiac murmur echo 06-14-23 EF 40-45%, moderate to severe aortic valve stenosis Diabetes (HCC) Hypertension PVC's (premature ventricular contractions) LABS: CBC: Recent Labs 06/21/23 0235 WBC 19.7* RBC 3.44* HGB 10.2* HCT 30.5* MCV 88.7 RDW 13.1 PLT 182 BMP: Recent Labs 06/21/23 0235 NA 135 K 3.6 CL 103 CO2 25 BUN 25* CREATININE 0.94 GLUCOSE 239* CALCIUM 8.6 ANIONGAP 7 LIVER PROFILE: No results for input(s): AST, ALT, BILITOT, ALKPHOS, PROT in the last 72 hours. No lab exists for component: LABALBU PT/INR: No results for input(s): PROTIME, INR in the last 72 hours. CARDIAC ENZYMES: No results for input(s): TROPONINI in the last 72 hours. Procalcitonin: No results found for: PROCAL COVID-19 PCR: No results for input(s): COVID19 in the last 72 hours. Objective: Vitals: BP 115/78 (BP Location: Left arm, Patient Position: Sitting) Pulse 99 Temp 37.1 ?C (98.8 ?F) (Temporal) Resp 16 Ht 5' 5 (1.651 m) Wt 180 lb 12.4 oz (82 kg) SpO2 97% BMI 30.08 kg/m? Pulse Ox: SpO2 Av.5 % Min: 96 % Max: 97 % Supplemental O2: O2 Flow Rate (L/min): 2 L/min GENERAL: Sitting in chair comfortably HEENT: normocephalic, non-traumatic, MMM NECK: supple, trachea midline HEART: RRR, normal S1 and S2 LUNGS: non labored ABD: non distended MSK: no edema noted SKIN: warm, dry Medications: amLODIPine, 10 mg, Oral, Daily famotidine, 20 mg, Oral, BID hydroCHLOROthiazide, 12.5 mg, Oral, Daily insulin glargine, 10 Units, SubCUTAneous, Nightly insulin lispro, 0-12 Units, SubCUTAneous, TID WC And insulin lispro, 0-12 Units, SubCUTAneous, Nightly insulin lispro, 10 Units, SubCUTAneous, TID WC lisinopril, 20 mg, Oral, Daily polyethylene glycol (PEG) 3350, 17 g, Oral, BID senna-docusate sodium, 2 tablet, Oral, BID sodium chloride 0.9%, 10 mL, IntraVENous, 2 times per day Assessment Data: Acute, acute on chronic, unstable/uncontrolled chronic problems/diagnoses: Hyperglycemia with diabetes mellitus type 2 - patient's home regimen is glimepiride 4 mg daily; severely elevated with steroid use and not covering adequately with meals Constipation, persistent S/p ALIF L4/5, L5/S1, PSF L4-S1, lami L1-L5 - on 06/19/23 Stable chronic problems affecting care, new non-acute diagnoses: Hypertension -Home regimen includes amlodipine 10 mg, hydrochlorothiazide 12.5 mg and lisinopril 20 mg Aortic valve stenosis-follows with cardiology as outpatient HFrEF-EF 45% GERD Plan As a result of the above findings & factors, the following mgmt was pursued: -Orthopedic surgery is primary -Continue on 10U glargine nightly and increase 10U TID lispro with meals -- steroids are known to increase postprandial sugars; patient should be placed back on home diabetic medications on discharge, should not place on insulin on discharge -Blood pressure is stable on home medications -Scheduled Tylenol 1 g every 6 -BRENNA senna + MiraLax given constipation; if no BM today, will order an enema - am labs, replace lytes prn - PT/OT/CM/SW - delirium precautions: increase activity and limit nighttime disturbances - DVT prophylaxis: SCDs and encourage ambulation Advance Directive: Full Code 55 minutes spent in chart review, lab and radiology interpretation, patient eval, counseling and treatment plan. Medically stable for discharge when ok from primary team, pending drain removal and SNF acceptance Iain Mueller DO Division of Hospitalist Medicine [facility]02-24-2024 Note* Care Coordination - Yovana Mcmillan RN - 06/23/2023 1:01 PM EST TCC tasked to follow over weekend. Patient's drain remains in place. No DC orders noted yet. Patient to dc to [facility]. TCC to follow. Jenn reached out to this TCC to ask facility if pt can dc to them with accordion drain in place. Awaiting response. Facility able to medically manage drain. Son to transport. Patient to dc to [facility] today. RN,MD, son, community recreation programmer and facility all updated. FELIBERTO completed. [id number] Note* Care Coordination - Yovana Mcmillan RN - 06/23/2023 1:01 PM EST TCC tasked to follow over weekend. Patient's drain remains in place. No DC orders noted yet. Patient to dc to [facility]. TCC to follow. Jenn reached out to this TCC to ask facility if pt can dc to them with accordion drain in place. Awaiting response. Facility able to medically manage drain. Son to transport. Patient to dc to [facility] today. RN,MD, son, community recreation programmer and facility all updated. FELIBERTO completed. [facility]02-24-2024 [facility]GRESS[facility] UN[facility] PCU [address] [place] [id number] Dept: [phone] Loc: [phone] Orthopedic Spine Progress Note Name: Azar Triplett Date:06/23/2023 Attending:Guerda Alvarez MD Subjective No events o/n. Pain well controlled. Has been ambulating very well. Wants to go to SNF for a short time prior to dc home. Objective Vitals: Vitals: 06/22/23 0741 06/22/23 0940 06/22/23 2203 06/23/23 0831 BP: 146/82 117/59 115/78 BP Location: Right arm Left arm Patient Position: Lying Sitting Pulse: 90 93 99 Resp: 18 17 16 Temp: 37 ?C (98.6 ?F) 37.2 ?C (98.9 ?F) 37.1 ?C (98.8 ?F) TempSrc: Temporal Temporal Temporal SpO2: 95% 96% 97% Weight: 82 kg (180 lb 12.4 oz) Height: 1.651 m (5' 5) Physical Exam: General: NAD Neuro Extremity Exam: Lower Extremity Motor: HF Q TA EHL GSC Right 4* 5 4 3 4 Left 5 5 4 4 4+ *limited by pain Lower extremity sensation to light touch: L2 L3 L4 L5 S1 Right Intact Intact Intact Intact Intact Left Intact Intact Intact Intact Intact Back: Dressing c/d/I Drain: 160 SS output LABS: Recent Labs 06/21/23 0235 WBC 19.7* HGB 10.2* HCT 30.5* PLT 182 Recent Labs 06/21/23 0235 NA 135 K 3.6 CL 103 CO2 25 BUN 25* CREATININE 0.94 CALCIUM 8.6 No results for input(s): INR in the last 72 hours. No results for input(s): SEDRATE, CRP in the last 72 hours. No results for input(s): HCG in the last 72 hours. Assessment Azar is a 77 y.o.male s/p L4-S1 ALIF/PSF+L1-S1 decompression 06/19 Plan -WBAT/ROM as tolerated -Immobilization: No immobilization needed -Consults: -Internal medicine consult for medical management -Acute pain service consult for pain control recommendations -Antibiotics: No further antibiotics needed. Post op course completed. -Dressings: Keep bandage clean dry and intact for 7-10 days post operatively, then ok to leave open to air if incision is without drainage. -Other: Drain care: ortho team will pull when appropriate. Record output every shift. -Neurochecks q4 -Bowel regimen: -Sennakot, miralax -Labs: No further labs needed from ortho standpoint. -PT/OT -DVT ppx: SCDs/mobilization -Follow-up with Dr Page in 2 weeks -Ortho primary team. Dispo: SNF placement once drain able to be pulled Reagan Merchant M.D. [facility] NotePatient and son requesting referral to [facility]. TCC called [facility]. SOURCER tasked to make referral to [facility]. Specifics provided per request to Marko [place]. Dr. Toledo secure messaged and patient is medically stable for discharge. TCC secure messaged Ortho regarding medically stable for discharge. Per OT patient did not work on transfer to car, had worked on transfer to chair. If patient has assist should be able to transfer to car. Tasked weekend TCC to assist with discharge tomorrow. TCC to assist and follow as needed. [facility]02-23-2024 Note* Care Coordination - Radha Martinez RN - 06/22/2023 2:36 PM EST Per ortho Dr. Fulton patient drain output is too high and that makes patient not ready for discharge. TCC to assist and follow as needed. [facility]02-23-2024 Note* Care Coordination - Radha Martinez RN - 06/22/2023 2:36 PM EST Per ortho Dr. Fulton patient drain output is too high and that makes patient not ready for discharge. TCC to assist and follow as needed. [facility]02-23-2024 Note* Care Coordination - Radha Martinez RN - 06/22/2023 2:06 PM EST Patient and son requesting referral to [facility]. TCC called [facility]. SOURCER tasked to make referral to [facility]. Specifics provided per request to [facility]. Dr. Toledo secure messaged and patient is medically stable for discharge. TCC secure messaged Ortho regarding medically stable for discharge. Per OT patient did not work on transfer to car, had worked on transfer to chair. If patient has assist should be able to transfer to car. Tasked weekend TCC to assist with discharge tomorrow. TCC to assist and follow as needed. [facility]02-23-2024 Note* Care Coordination - Radha Martinez RN - 06/22/2023 2:06 PM EST Patient and son requesting referral to [facility]. TCC called [facility]. SOURCER tasked to make referral to [facility]. Specifics provided per request to [facility]. Dr. Toledo secure messaged and patient is medically stable for discharge. TCC secure messaged Ortho regarding medically stable for discharge. Per OT patient did not work on transfer to car, had worked on transfer to chair. If patient has assist should be able to transfer to car. Tasked weekend TCC to assist with discharge tomorrow. TCC to assist and follow as needed. [facility]02-23-2024 NoteReferral placed to SNF- [facility] via [facility] per TCC request. Await review and response regarding ability to accept. TCC notified. [facility]02-23-2024 Note* Home Care - Yajaira Carrillo RN - 06/22/2023 12:10 PM EST Spoke with pt and family member, Perry, at bedside. Pt and family decided they would prefer SNF placement for short time prior to dc home. Perry stated this is already approved through their insurance fund. Denied DME needs. TCC aware and working on referrals. [id number]* Home Care - Yajaira Carrillo RN - 06/22/2023 12:10 PM EST Spoke with pt and family member, Perry, at bedside. Pt and family decided they would prefer SNF placement for short time prior to dc home. Perry stated this is already approved through their insurance fund. Denied DME needs. TCC aware and working on referrals. [facility]02-23-2024 NoteCare Management Progress Note Patient remains on H6 s/p anterior lumbar fusion 06/19/2023. Reg 5 carb choice diet noted. Per RN accordian drain with increase output. PT/OT noted. Discharge plan is to spouse home with therapy at home. TCC to assist and follow as needed. Discharge Milestones and Delays Expected Date/Time: 06/23/[address] discharge order Complete med reconciliation Case mgmt discharge readiness Clinical Stability Diagnsotic Workup Expected Discharge History Expected Date/Time Set By Reviewed At 06/23/2023 Radha Martinez RN 06/22/2023 8:55 AM 06/23/2023 Radha Martinez RN 06/21/2023 8:27 AM 06/21/2023 Radha Martinez RN 06/20/2023 8:33 AM 06/21/2023 Tosin Aguila MD 06/19/2023 5:37 PM 06/21/2023 Tosin Aguila MD 06/19/2023 2:26 PM 06/23/2023 Guerda Alvarez MD 06/19/2023 6:13 AM Length of Stay (Days): 3 GMLOS: [address] [place], [place] [address]2702-23-2024 Note* Care Coordination - Dale Varela - 06/22/2023 11:37 AM EST Referral placed to [facility] via [facility] per TCC request. Await review and response regarding ability to accept. TCC notified. [facility]02-23-2024 Note* Care Coordination - Dale Varela - 06/22/2023 11:37 AM EST [facility]. Await review and response regarding ability to accept. TCC notified. [employer] [id number] NoteHospitalist Progress Note 06/22/2023 Subjective: Admit Date: 06/19/2023 PCP: Seferino Hernandez Room#: [id number] A Brief Hospital course: 77-year-old male past medical history of hypertension, diabetes mellitus type 2 and chronic back pain who is status post ALIF L4/5, L5/S1, PSF L4-S1, lami L1-L5, medicine is consulted for diabetic and hypertensive management. Interval History: No overnight issues. Patient states he will sleep well given the multitude of issues specifically having cold feet having issues with SCDs. Patient states that he still has not had a bowel movement yet but has been passing a lot of gas. Patient is hopeful he will have a bowel movement today. Patient states that has been eating and drinking without issues, he denies nausea and vomiting. Patient is debating whether he should want house for short-term rehab versus going home, patient states he does not have a large area within his house to undergo significant therapy. Case and plan discussed with patient and bedside nurse. All questions answered. Adult diet Regular; 5 carb choices (75 gm/meal) 24HR INTAKE/OUTPUT: Intake/Output Summary (Last 24 hours) at 06/22/2023 0754 Last data filed at 06/22/2023 0512 Gross per 24 hour Intake -- Output 347 ml Net -347 ml Past Medical History: Past Medical History: Diagnosis Date Abnormal EKG Back pain recent steroid [id number] Cardiac murmur echo 06-14-23 EF 40-45%, moderate to severe aortic valve stenosis Diabetes (HCC) Hypertension PVC's (premature ventricular contractions) LABS: CBC: Recent Labs 06/20/23 0043 06/21/23 0235 WBC -- 19.7* RBC -- 3.44* HGB 10.5* 10.2* HCT 30.3* 30.5* MCV -- 88.7 RDW -- 13.1 PLT -- 182 BMP: Recent Labs 06/20/23 0043 06/21/23 0235 NA 134* 135 K 4.0 3.6 CL 104 103 CO2 19* 25 BUN 16 25* CREATININE 0.83 0.94 GLUCOSE 263* 239* CALCIUM 8.1* 8.6 ANIONGAP 10 7 LIVER PROFILE: No results for input(s): AST, ALT, BILITOT, ALKPHOS, PROT in the last 72 hours. No lab exists for component: LABALBU PT/INR: No results for input(s): PROTIME, INR in the last 72 hours. CARDIAC ENZYMES: No results for input(s): TROPONINI in the last 72 hours. Procalcitonin: No results found for: PROCAL COVID-19 PCR: No results for input(s): COVID19 in the last 72 hours. Objective: Vitals: BP 146/82 Pulse 90 Temp 37 ?C (98.6 ?F) (Temporal) Resp 18 SpO2 95% Pulse Ox: SpO2 Av % Min: 95 % Max: 97 % Supplemental O2: O2 Flow Rate (L/min): 2 L/min Physical Exam Constitutional: General: He is not in acute distress. Appearance: He is not ill-appearing. Cardiovascular: Heart sounds: Murmur heard. Pulmonary: Effort: No respiratory distress. Abdominal: Tenderness: There is abdominal tenderness (Lower quadrant, at surgical site). Musculoskeletal: Right lower leg: No edema. Left lower leg: No edema. Skin: Coloration: Skin is not jaundiced. Neurological: Motor: Weakness (Bilateral lower extremities) present. Medications: amLODIPine, 10 mg, Oral, Daily famotidine, 20 mg, Oral, BID [Held by provider] glipiZIDE, 10 mg, Oral, qAM AC hydroCHLOROthiazide, 12.5 mg, Oral, Daily insulin glargine, 10 Units, SubCUTAneous, Nightly insulin lispro, 0-12 Units, SubCUTAneous, TID WC And insulin lispro, 0-12 Units, SubCUTAneous, Nightly insulin lispro, 10 Units, SubCUTAneous, TID WC lisinopril, 20 mg, Oral, Daily polyethylene glycol (PEG) 3350, 17 g, Oral, Daily senna-docusate sodium, 2 tablet, Oral, Daily sodium chloride 0.9%, 10 mL, IntraVENous, 2 times per day Assessment Data: (CAT1) Reviewed 3 or more notes from different specialty or health system (each=1). (CAT1) Reviewed 3 or more labs/studies ordered by another provider not previously counted (each=1, panels count as 1). (LOW: 2x CAT1 or independent historian MOD: 3x CAT1 or 1x CAT3 EXTENSIVE: 3x CAT1 and 1x CAT3) Acute, acute on chronic, unstable/uncontrolled chronic problems/diagnoses: Hyperglycemia with diabetes mellitus type 2 - patient's home regimen is glimepiride 4 mg daily; severely elevated with steroid use and not covering adequately with meals Constipation, persistent S/p ALIF L4/5, L5/S1, PSF L4-S1, lami L1-L5 - on 06/19/23 Stable chronic problems affecting care, new non-acute diagnoses: Hypertension -Home regimen includes amlodipine 10 mg, hydrochlorothiazide 12.5 mg and lisinopril 20 mg Aortic valve stenosis-follows with cardiology as outpatient HFrEF-EF 45% GERD Plan As a result of the above findings & factors, the following mgmt was pursued: -Orthopedic surgery is primary -Continue on 10U glargine nightly and increase 10U TID lispro with meals -- steroids are known to increase postprandial sugars; patient should be placed back on home diabetic medications on discharge, should not place on insulin on discharge -Blood pressure is stable on home medications (more content not included)...[facility]02-23-20[facility] Note* Care Coordination - Radha Martinez RN - 06/22/2023 9:46 AM EST Images from the original note were not included. Care Management Progress Note Patient remains on H6 s/p anterior lumbar fusion 06/19/2023. Reg 5 carb choice diet noted. Per RN accordian drain with increase output. PT/OT noted. Discharge plan is to spouse home with therapy at home. TCC to assist and follow as needed. Discharge Milestones and Delays Expected Date/Time: 06/23/[address] discharge order Complete med reconciliation Case mgmt discharge readiness Clinical Stability Diagnsotic Workup Expected Discharge History Expected Date/Time Set By Reviewed At 06/23/2023 Radha Martinez RN 06/22/2023 8:55 AM 06/23/2023 Radha Martinez RN 06/21/2023 8:27 AM 06/21/2023 Radha Martinez RN 06/20/2023 8:33 AM 06/21/2023 Tosin Aguila MD 06/19/2023 5:37 PM 06/21/2023 Tosin Aguila MD 06/19/2023 2:26 PM 06/23/2023 Guerda Alvarez MD 06/19/2023 6:13 AM Length of Stay (Days): 3 GMLOS: 3.7 [facility]02-23-2024 Note* Care Coordination - Radha Martinez RN - 06/22/2023 9:46 AM EST Images from the original note were not included. Care Management Progress Note Patient remains on H6 s/p anterior lumbar fusion 06/19/2023. Reg 5 carb choice diet noted. Per RN accordian drain with increase output. PT/OT noted. Discharge plan is to spouse home with therapy at home. TCC to assist and follow as needed. Discharge Milestones and Delays Expected Date/Time: 06/23/[address] discharge order Complete med reconciliation Case mgmt discharge readiness Clinical Stability Diagnsotic Workup Expected Discharge History Expected Date/Time Set By Reviewed At 06/23/2023 Radha Martinez RN 06/22/2023 8:55 AM 06/23/2023 Radha Martinez RN 06/21/2023 8:27 AM 06/21/2023 Radha Martinez RN 06/20/2023 8:33 AM 06/21/2023 Tosin Aguila MD 06/19/2023 5:37 PM 06/21/2023 Tosin Aguila MD 06/19/2023 2:26 PM 06/23/2023 Guerda Alvarez MD 06/19/2023 6:13 AM Length of Stay (Days): 3 GMLOS: 3.7 [facility]02-23-2024 Plan of care note* Care Plan - Nikki Tompkins RN - 06/22/2023 9:36 AM EST Problem: Pain - Adult Goal: Verbalizes/displays adequate comfort level or baseline comfort level Outcome: Progressing Flowsheets (Taken 06/22/2023 0935) Verbalizes/displays adequate comfort level or baseline comfort level: Encourage patient to monitor pain and request assistance Assess pain using appropriate pain scale Administer analgesics based on type and severity of pain and evaluate response Implement non-pharmacological measures as appropriate and evaluate response Consider cultural and social influences on pain and pain management Notify Licensed Independent Practitioner if interventions unsuccessful or patient reports new pain Problem: Safety - Adult Goal: Free from fall injury Outcome: Progressing Flowsheets (Taken 06/22/2023 0935) Free from fall injury: Instruct family/caregiver on patient safety Based on caregiver fall risk screen, instruct family/caregiver to ask for assistance with transferring if caregiver noted to have fall risk factors Problem: Discharge Planning Goal: Discharge to home or other facility with appropriate resources Outcome: Progressing Flowsheets (Taken 06/22/2023 0935) Discharge to home or other facility with appropriate resources: Identify barriers to discharge with patient and caregiver Arrange for needed discharge resources and transportation as appropriate Identify discharge learning needs (meds, wound care, etc) Arrange for interpreters to assist at discharge as needed Refer to discharge planning if patient needs post-hospital services based on physician order or complex needs related to functional status, cognitive ability or social support system [id number] NoteOrtho Progress Note Patient: Azra Triplett Date of : 1945 Acct: [id number] PCP: Seferino Hernandez Date of Admission: 06/19/2023 Date of Service: Pt seen/examined on 06/22/2023 SUBJECTIVE: Patient resting in bed, states he had some difficulty sleeping d/t cold feet. Reports some pain over the R illiac crest, likely d/t positioning in bed. Denies new numbness/tingling. Has been ambulating with PT. Overall doing well. OBJECTIVE: General: alert and oriented to person, place and time, well-developed and well-nourished, in no acute distress VITALS: BP 129/67 Pulse 91 Temp 36.9 ?C (98.4 ?F) Resp 20 SpO2 97% MSK exam: Spine Exam: * Exam was limited due to pain: No Direct Spine Inspection: Abdominal dressing C/D/I, posterior lumbar dressing C/D/I, drain in place with bloody drainage HF KE DF EHL PF RLE 3 4+ 4- 4- 4+ Sensation: Intact L2-S1 with normal sensation Pulses: DP Palpable PT Palpable TTP in the following areas: Nontender throughout extremity. Nontender throughout remainder of extremity Pain w Straight leg raise: No HF KE DF EHL PF LLE 3 4+ 3 3 4+ Sensation: Intact L2-S1 with normal sensation Pulses: DP Palpable PT Palpable TTP in the following areas: Nontender throughout extremity. Nontender throughout remainder of extremity Pain w Straight leg raise: No Deep Tendon Reflexes: Right Knee: 1+ Left Knee: 1+ Right Ankle: 1+ Left Ankle: 1+ Right Ankle Clonus: absent Left Ankle Clonus: absent Babinski: downgoing BL Lab Results Component Value Date WBC 19.7 (H) 06/21/2023 HGB 10.2 (L) 06/21/2023 HCT 30.5 (L) 06/21/2023 PLT 182 06/21/2023 ALT 44 06/18/2023 AST 49 (H) 06/18/2023 NA 135 06/21/2023 K 3.6 06/21/2023 CL 103 06/21/2023 CREATININE 0.94 06/21/2023 BUN 25 (H) 06/21/2023 CO2 25 06/21/2023 HGBA1C 7.8 (H) 06/20/2023 No results found for: RH, LABANTI ASSESSMENT AND PLAN: This is a 77 y.o. male with s/p ALIF L4/5, L5/S1, PSF L4-S1, lami L1-L5 -Baclofen 10 mg q12h prn -Drain I/O q shift; Pull when POD3 <20cc x consecutive shifts -Diet: advance diet as tolerated to full -No DVT ppx, SCDs and ambulation -Multimodal pain control regimen ordered -WBAT; up w/ assistance -PT/OT -No spinal precautions -NV checks q4 hrs -Ortho primary Rubens Fulton MD PGY2 Orthopaedic Surgery 06/22/2023 6:04 [facility]02-22-2024 Plan of care note* Care Plan - Leisa Goldsmith RN - 06/21/2023 10:40 PM EST Problem: Pain - Adult Goal: Verbalizes/displays adequate comfort level or baseline comfort level Outcome: Progressing Problem: Safety - Adult Goal: Free from fall injury Outcome: Progressing Problem: Discharge Planning Goal: Discharge to home or other facility with appropriate resources Outcome: Progressing [id number] NoteOCCUPATIONAL THERAPY [facility] Initial Evaluation Name/MRN: Azar Triplett ([id number]) Evaluation Date: 06/21/2023 Date of : 1945 Admission Date: 06/19/2023 6:04 AM Age: 77 y.o. [facility] Discharge Recommendation: Home with Home health OT, 24 hour Assist Assessment IMPRESSION: Pt was SBA for mobility. Unable to reach to complete LB dressing and could not achieve figure four position. Pt required education on BLT spinal precautions during ADLs and reports being interested in receiving home OT to assist with ADLs at home while maintaining BLT precautions. Pt would continue to benefit to maximize potential. OT recommending home with 24 hour assist and Home health OT. Performance Deficits /Impairments: Increased Pain, Decreased Functional Mobility, Decreased ADL status, Decreased Endurance, Decreased Balance, and Decreased Posture Prognosis: Fair Decision Making: Medium Complexity Subjective Pt met coming back from bathroom. Agreeable to OT. Daughter present. Pain: 0-10 pain scale: 5/10 Location: low back Diagnosis: s/p ALIF L4-S1, PSF L4-S1, and Laminectomy L1-5 06/19/23 Past Medical History: Past Medical History: Diagnosis Date Abnormal EKG Back pain recent steroid [id number] Cardiac murmur echo 06-14-23 EF 40-45%, moderate to severe aortic valve stenosis Diabetes (HCC) Hypertension PVC's (premature ventricular contractions) Past Surgical History: Past Surgical History: Procedure Laterality Date ACHILLES TENDON SURGERY APPENDECTOMY BACK SURGERY 2006 herniated disc HERNIA REPAIR Left LUMBAR FUSION 06/19/2023 LUMBAR 4/5-SACRAL 1, TOTAL KNEE ARTHROPLASTY Right WISDOM TOOTH EXTRACTION Admission Diagnosis: Patient Active Problem List Diagnosis Date Noted Spondylolisthesis of lumbosacral region 06/19/2023 Delayed emergence from anesthesia 06/18/2023 Medical Precautions: No active isolations Proper PPE donned/doffed in accordance with facility standards. Fall Risk: Haro Fall Risk Score: 60 (High Risk) Precautions/Restrictions: Spine Precautions: No Bending, No Lifting, No Twisting Family/Caregiver Present: daughter Overall Cognitive Status: WFL Overall Orientation Status: Oriented x4 Social/Functional History Patient admitted from home. Lives With: Spouse Type of Home: single family home Home Layout: Single Level Home Home Access: Level Entry Bathroom Shower/Tub: walk-in shower Toilet: N/A Home Equipment: front wheeled walker, cane, and hospital bed Homemaking Responsibilities: Independent Receives Help From: None Active Hand Cigar Maker: No Prior Level of Function ADL Assistance: Independent Ambulation Assistance: Independent Pt used cane PRN Transfer Assistance: Independent Objective ADLs LE Dressing: pt attempted to perform doff/donning socks in bedside chair, but unable to achieve figure four position or reach secondary to BLT precautions. Pt would require mod assist with LB dressing at this time. Upper Extremity Assessment AROM: WFL Strength: WFL Vision: no visual deficits Hearing: normal Transfers/Functional Mobility Stand to sit: SBA, to sit in bedside chair. Sitting balance: Supervision, UE assessment completed in bedside chair, no LOB Standing balance: BUE support at FWW, pt reports feeling slightly unsteady Functional Mobility: SBA, pt able to ambulate from bathroom, around foot of bed, to sit in bedside chair with SBA at FWW. Device(s) used: front wheeled walker Coordination: WFL Tone: WFL Sensation: WFL AM-PAC AM-PAC Inpatient Daily Activity Raw Score: 17 ADL Inpatient CMS G-Code Modifier: CK Plan Pt would benefit from skilled acute OT services to address Strengthening, Balance Training, Functional Mobility Training, Endurance Training, Pain Management, Safety Education and Training, Patient/Caregiver Training, Equipment Evaluation/Education, Self-Care/ADL Training, and Home Management Training. Frequency: 2x/week for 4 weeks Barriers: Pain, New weightbearing/ROM restrictions, Lower extremity weakness, and Wound Care Prognosis: fair Safety/Education Safety Safety Devices in place: All fall risk precautions in place, call light within reach, left in chair, patient at risk for falls, and no alarms engaged upon entry Restraints: N/A Education Education Given To: patient and daughter Education Provided: OT Role, Plan of Care, Precautions, ADL Adaptive Strategies, Transfer Training, Family Education, Equipment, Discharge Recommendations, Benefits of Increasing Activity, and pt and daughter inquiring about home therapy options, BLT precautions, and about pt prognosis Education Method: Verbal Barriers to Learning: None Education Outcome: Verbalized Understanding, Demonstrated Understanding, and Continued Education Needed Goals Patient Stated Goal: to go home Encounter Problems Encounter Problems (Active) Balance Patient will maintain dyn (more content not included)...[facility] 06-21-2023 NoteHospitalist Progress Note 06/21/2023 Subjective: Admit Date: 06/19/2023 PCP: Seferino Hernandez Room#: [id number] A Brief Hospital course: 77-year-old male past medical history of hypertension, diabetes mellitus type 2 and chronic back pain who is status post ALIF L4/5, L5/S1, PSF L4-S1, lami L1-L5, medicine is consulted for diabetic and hypertensive management. Interval History: No overnight issues. Fells well. He slept fairly well. Denies nausea and vomiting. He admits to constipation for the past few days, stated Miralax has helped before. Case and plan discussed with patient and bedside nurse. All questions answered. Adult diet Regular; 5 carb choices (75 gm/meal) 24HR INTAKE/OUTPUT: Intake/Output Summary (Last 24 hours) at 06/21/2023 0821 Last data filed at 06/21/2023 0631 Gross per 24 hour Intake 1275 ml Output 1160 ml Net 115 ml Past Medical History: Past Medical History: Diagnosis Date Abnormal EKG Back pain recent steroid [id number] Cardiac murmur echo 06-14-23 EF 40-45%, moderate to severe aortic valve stenosis Diabetes (HCC) Hypertension PVC's (premature ventricular contractions) LABS: CBC: Recent Labs 06/18/23 1714 06/20/23 0043 06/21/23 0235 WBC 9.1 -- 19.7* RBC 5.08 -- 3.44* HGB 15.0 10.5* 10.2* HCT 44.6 30.3* 30.5* MCV 87.8 -- 88.7 RDW 13.3 -- 13.1 PLT 202 -- 182 BMP: Recent Labs 06/18/23 1714 06/20/23 0043 06/21/23 0235 NA 136 134* 135 K 3.3* 4.0 3.6 CL 103 104 103 CO2 26 19* 25 BUN 14 16 25* CREATININE 0.81 0.83 0.94 GLUCOSE 113* 263* 239* CALCIUM 9.1 8.1* 8.6 ANIONGAP 7 10 7 LIVER PROFILE: Recent Labs 06/18/23 1714 AST 49* ALT 44 BILITOT 1.0 ALKPHOS 55 PROT 7.4 PT/INR: No results for input(s): PROTIME, INR in the last 72 hours. CARDIAC ENZYMES: No results for input(s): TROPONINI in the last 72 hours. Procalcitonin: No results found for: PROCAL COVID-19 PCR: No results for input(s): COVID19 in the last 72 hours. Objective: Vitals: BP 142/84 (BP Location: Left arm, Patient Position: Lying) Pulse 94 Temp 37.4 ?C (99.3 ?F) (Temporal) Resp 20 SpO2 95% Pulse Ox: SpO2 Av % Min: 95 % Max: 97 % Supplemental O2: O2 Flow Rate (L/min): 2 L/min Physical Exam Constitutional: General: He is not in acute distress. Appearance: He is not ill-appearing. Cardiovascular: Heart sounds: Murmur heard. Pulmonary: Effort: No respiratory distress. Abdominal: Tenderness: There is abdominal tenderness (Lower quadrant, at surgical site). Musculoskeletal: Right lower leg: No edema. Left lower leg: No edema. Skin: Coloration: Skin is not jaundiced. Neurological: Motor: Weakness (Bilateral lower extremities) present. Medications: acetaminophen, 1,000 mg, Oral, q6h amLODIPine, 10 mg, Oral, Daily famotidine, 20 mg, Oral, BID [Held by provider] glipiZIDE, 10 mg, Oral, qAM AC hydroCHLOROthiazide, 12.5 mg, Oral, Daily insulin glargine, 10 Units, SubCUTAneous, Nightly insulin lispro, 0-12 Units, SubCUTAneous, TID WC And insulin lispro, 0-12 Units, SubCUTAneous, Nightly insulin lispro, 6 Units, SubCUTAneous, TID WC lisinopril, 20 mg, Oral, Daily sodium chloride 0.9%, 10 mL, IntraVENous, 2 times per day Assessment Data: (CAT1) Reviewed 3 or more notes from different specialty or health system (each=1). (CAT1) Reviewed 3 or more labs/studies ordered by another provider not previously counted (each=1, panels count as 1). (LOW: 2x CAT1 or independent historian MOD: 3x CAT1 or 1x CAT3 EXTENSIVE: 3x CAT1 and 1x CAT3) Acute, acute on chronic, unstable/uncontrolled chronic problems/diagnoses: Hyperglycemia with diabetes mellitus type 2 - patient's home regimen is provide 4 mg daily; severely elevated with steroid use and not covering adequately with meals Constipation S/p ALIF L4/5, L5/S1, PSF L4-S1, lami L1-L5 - on 06/19/23 Stable chronic problems affecting care, new non-acute diagnoses: Hypertension -Home regimen includes amlodipine 10 mg, hydrochlorothiazide 12.5 mg and lisinopril 20 mg Aortic valve stenosis-follows with cardiology as outpatient HFrEF-EF 45% GERD Plan As a result of the above findings & factors, the following mgmt was pursued: -Orthopedic surgery is primary -Increase to 14U glargine nightly and 6U TID lispro with meals -- steroids are known to increase postprandial sugars -Blood pressure is stable on home medications -Scheduled Tylenol 1 g every 6 -BRENNA senna + MiraLax given constipation - am labs, replace lytes prn - PT/OT/CM/SW - delirium precautions: increase activity and limit nighttime disturbances - DVT prophylaxis: SCDs and encourage ambulation Advance Directive: Full Code Rhett Toledo DO Division of Hospitalist Medicine [facility]02-22-2024 NoteOrtho Progress Note Patient: Azar Triplett Date of : 1945 Acct: [id number] PCP: Seferino Hernandez Date of Admission: 06/19/2023 Date of Service: Pt seen/examined on 06/21/2023 SUBJECTIVE: Patient resting well overnight. Denies significant pain. Denies abdominal pain, chest pain, shortness of breath. Ambulated with PT yesterday. Overall doing well. OBJECTIVE: General: alert and oriented to person, place and time, well-developed and well-nourished, in no acute distress VITALS: BP 119/66 Pulse 100 Temp 36.4 ?C (97.5 ?F) (Temporal) Resp 18 SpO2 97% MSK exam: Spine Exam: * Exam was limited due to pain: No Direct Spine Inspection: Abdominal dressing C/D/I, posterior lumbar dressing C/D/I, drain in place with bloody drainage HF KE DF EHL PF RLE 3 4+ 4- 4- 4+ Sensation: Intact L2-S1 with normal sensation Pulses: DP Palpable PT Palpable TTP in the following areas: Nontender throughout extremity. Nontender throughout remainder of extremity Pain w Straight leg raise: No HF KE DF EHL PF LLE 3 4+ 3 3 4+ Sensation: Intact L2-S1 with normal sensation Pulses: DP Palpable PT Palpable TTP in the following areas: Nontender throughout extremity. Nontender throughout remainder of extremity Pain w Straight leg raise: No Deep Tendon Reflexes: Right Knee: 1+ Left Knee: 1+ Right Ankle: 1+ Left Ankle: 1+ Right Ankle Clonus: absent Left Ankle Clonus: absent Babinski: downgoing BL Lab Results Component Value Date WBC 19.7 (H) 06/21/2023 HGB 10.2 (L) 06/21/2023 HCT 30.5 (L) 06/21/2023 PLT 182 06/21/2023 ALT 44 06/18/2023 AST 49 (H) 06/18/2023 NA 135 06/21/2023 K 3.6 06/21/2023 CL 103 06/21/2023 CREATININE 0.94 06/21/2023 BUN 25 (H) 06/21/2023 CO2 25 06/21/2023 HGBA1C 7.8 (H) 06/20/2023 No results found for: RH, LABANTI ASSESSMENT AND PLAN: This is a 77 y.o. male with s/p ALIF L4/5, L5/S1, PSF L4-S1, lami L1-L5 -Baclofen 10 mg q12h prn -XR in rad dept POD2 -Drain I/O q shift; Pull when POD3 <20cc x consecutive shifts -Diet: advance diet as tolerated to full -No DVT ppx, SCDs and ambulation -Multimodal pain control regimen ordered -WBAT; up w/ assistance -PT/OT -No spinal precautions -NV checks q4 hrs -Ortho primary Rubens Fulton MD PGY2 Orthopaedic Surgery 06/21/2023 7:18 [facility]02-22-2024 Note* Care Coordination - Radha Martinez RN - 06/21/2023 8:27 AM EST Patient remains on H6 s/p anterior lumbar fusion 06/19/2023. Reg 5 carb choice diet noted. Per RN accordian drain with increase output. PT/OT noted. Discharge plan is to spouse home with therapy at home. TCC to assist and follow as needed. [facility]02-22-2024 Note* Care Coordination - Radha Martinez RN - 06/21/2023 8:27 AM EST Patient remains on H6 s/p anterior lumbar fusion 06/19/2023. Reg 5 carb choice diet noted. Per RN accordian drain with increase output. PT/OT noted. Discharge plan is to spouse home with therapy at home. TCC to assist and follow as needed. [facility]02-22-2024 Plan of care note* Care Plan - Carrie Hagen RN - 06/21/2023 6:45 AM EST Problem: Pain - Adult Goal: Verbalizes/displays adequate comfort level or baseline comfort level Outcome: Progressing Problem: Safety - Adult Goal: Free from fall injury Outcome: Progressing Problem: Discharge Planning Goal: Discharge to home or other facility with appropriate resources Outcome: Progressing [place] [id number] NoteHospitalist Progress Note 06/20/2023 Subjective: Admit Date: 06/19/2023 PCP: Seferino Hernandez Room#: [id number] A Brief Hospital course: 77-year-old male past medical history of hypertension, diabetes mellitus type 2 and chronic back pain who is status post ALIF L4/5, L5/S1, PSF L4-S1, lami L1-L5, medicine is consulted for diabetic and hypertensive management. Interval History: No overnight issues. Patient states he is up walking with physical therapy and he felt a little unsteady on his feet, but otherwise and felt well. Patient states that he knew his sugar levels will go up with the steroids. Patient denies nausea does admit to mild abdominal pain which is associated at the incision site. Patient denies any vomiting, patient has eaten a little bit today but is try to avoid sugars. Patient states his pain is well-controlled. Case and plan discussed with patient and bedside nurse. All questions answered. Adult diet Regular; 5 carb choices (75 gm/meal) 24HR INTAKE/OUTPUT: Intake/Output Summary (Last 24 hours) at 06/20/2023 1401 Last data filed at 06/20/2023 0619 Gross per 24 hour Intake 2629.54 ml Output 2070 ml Net 559.54 ml Past Medical History: Past Medical History: Diagnosis Date Abnormal EKG Back pain recent steroid [id number] Cardiac murmur echo 06-14-23 EF 40-45%, moderate to severe aortic valve stenosis Diabetes (HCC) Hypertension PVC's (premature ventricular contractions) LABS: CBC: Recent Labs 06/18/23171306/20/23 0043 WBC 9.1 -- RBC 5.08 -- HGB 15.0 10.5* HCT 44.6 30.3* MCV 87.8 -- RDW 13.3 -- PLT 202 -- BMP: Recent Labs 06/18/23 1714 06/20/23 0043 NA 136 134* K 3.3* 4.0 CL 103 104 CO2 26 19* BUN 14 16 CREATININE 0.81 0.83 GLUCOSE 113* 263* CALCIUM 9.1 8.1* ANIONGAP 7 10 LIVER PROFILE: Recent Labs 06/18/231713 AST 49* ALT 44 BILITOT 1.0 ALKPHOS 55 PROT 7.4 PT/INR: No results for input(s): PROTIME, INR in the last 72 hours. CARDIAC ENZYMES: No results for input(s): TROPONINI in the last 72 hours. Procalcitonin: No results found for: PROCAL COVID-19 PCR: No results for input(s): COVID19 in the last 72 hours. Objective: Vitals: BP 150/88 (BP Location: Left arm, Patient Position: Lying) Pulse 109 Temp 37.2 ?C (99 ?F) (Oral) Resp 18 SpO2 94% Pulse Ox: SpO2 Av.1 % Min: 94 % Max: 100 % Supplemental O2: O2 Flow Rate (L/min): 2 L/min Physical Exam Constitutional: General: He is not in acute distress. Appearance: He is not ill-appearing. Cardiovascular: Heart sounds: Murmur heard. Pulmonary: Effort: No respiratory distress. Abdominal: Tenderness: There is abdominal tenderness (Lower quadrant, at surgical site). Musculoskeletal: Right lower leg: No edema. Left lower leg: No edema. Skin: Coloration: Skin is not jaundiced. Neurological: Motor: Weakness (Bilateral lower extremities) present. Medications: acetaminophen, 1,000 mg, Oral, q6h amLODIPine, 10 mg, Oral, Daily famotidine, 20 mg, Oral, BID [Held by provider] glipiZIDE, 10 mg, Oral, qAM AC hydroCHLOROthiazide, 12.5 mg, Oral, Daily insulin glargine, 10 Units, SubCUTAneous, Nightly insulin lispro, 0-12 Units, SubCUTAneous, TID WC And insulin lispro, 0-12 Units, SubCUTAneous, Nightly insulin lispro, 0-6 Units, SubCUTAneous, TID WC And insulin lispro, 0-6 Units, SubCUTAneous, Nightly insulin lispro, 6 Units, SubCUTAneous, TID WC lisinopril, 20 mg, Oral, Daily sodium chloride 0.9%, 10 mL, IntraVENous, 2 times per day Assessment Data: (CAT1) Reviewed 3 or more notes from different specialty or health system (each=1). (CAT1) Reviewed 3 or more labs/studies ordered by another provider not previously counted (each=1, panels count as 1). (LOW: 2x CAT1 or independent historian MOD: 3x CAT1 or 1x CAT3 EXTENSIVE: 3x CAT1 and 1x CAT3) Acute, acute on chronic, unstable/uncontrolled chronic problems/diagnoses: Hyperglycemia with diabetes mellitus type 2 - patient's home regimen is provide 4 mg daily; severely elevated with steroid use and not covering adequately with meals S/p ALIF L4/5, L5/S1, PSF L4-S1, lami L1-L5 - on 06/19/23 Stable chronic problems affecting care, new non-acute diagnoses: Hypertension -Home regimen includes amlodipine 10 mg, hydrochlorothiazide 12.5 mg and lisinopril 20 mg Aortic valve stenosis-follows with cardiology as outpatient HFrEF-EF 45% GERD Plan As a result of the above findings & factors, the following mgmt was pursued: -Orthopedic surgery is primary -Will increase patient's diabetic regiment while inpatient, will add on nightly long-acting and will add on mealtime insulin scheduled as steroids are known to increase postprandial sugars -Blood pressure is stable on home medications -Scheduled Tylenol 1 g every 6 - am labs, replace lytes prn - PT/OT/CM/SW - delirium precautions: increase activity and limit nighttime disturban (more content not included)...[facility]02-21-2024 Note* Care Coordination - Radha Martinez RN - 06/20/2023 2:29 PM EST Care Managment Initial Assessment Date: 06/20/2023 Patient Name: Azar Triplett : 1945 Patient Information Source of Information: Patient Cognition/Language: WFL - Within Functional Limits 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 as indicated: Yes Confirmation of Payer with patient/family: Yes Payer Name: [facility] Hazel: No Confirmation of Primary Care Physician: Confirmed PCP Name: Seferino Hernandez Seen in last 2 years?: Yes Primary Caregiver: Self If assistance needed, confirmed caregiver ready, willing and able to care for patient at discharge:Yes Confirmed with: spouse Living Arrangements Current Residence: House Number of Floors 3 Number of Entry Steps: 2 Bed/Bath Levels: Separate floors Facility: Facility Name: Plan to Return: Lives with: Alone Support Systems: Spouse/significant other (Patient to go stay with spouse) Activities of Daily Living Ambulation: Independent Bathing/Dressing: Independent Elimination/Continence/Toileting: Independent Feeding: Independent Who Assists with Activities of Daily Living: Instrumental Activities of Daily Living Prescription Coverage: Yes Pharmacy Used: [facility] Medication Management: Independent Transportation/Shopping: (van, son will set up) Transportation Mode: Needs Assistance with Transportation at Discharge: No, Comments (son will arrange van transport home) Meal Preparation: Independent Laundry/Cleaning: Independent Finances/Bill Paying: Independent Communication: Independent Types of Care Services/Equipment Utilized Care Services: Dialysis Type: Durable Medical Equipment: Cane, Walker Patient's Goal/Discharge Plan Patient expects to be discharged to: home with home care Discharge Planning Actions: Continue to follow Patient's Choice Rights and [employer] and Collaborative Relationships Disclosed as Indicated for Post-Acute Care: Interdisciplinary Team Engagement: PT/OT Social Work Referral for: Additional Information: Patient admitted to H6 s/p anterior lumbar fusion. Reg 5 carb choice diet noted. Per RN accordian drain with increase output. PT/OT noted. PT recommending 24 hour supervision and home therapy. Met with pt at bedside, introduced self and explained role of TCC. Pt has insurance with RX coverage, active with PCP. Patient is Sabianism, son is in the room. Patient lives alone. Patient is going to stay with spouse after surgery. Son will arrange van transport home. Patient is agreeable to therapy at home. TCC to assist and follow as needed. 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 as indicated: Yes Confirmation of Payer with patient/family: Yes Payer Name: [facility] Hazel: No Confirmation of Primary Care Physician: Confirmed PCP Name: Seferino Hernandez Seen in last 2 years?: Yes Primary Caregiver: Self If assistance needed, confirmed caregiver ready, willing and able to care for patient at discharge:Yes Confirmed with: spouse Living Arrangements Current Residence: House Number of Floors 3 Number of Entry Steps: 2 Bed/Bath Levels: Separate floors Facility: Facility Name: Plan to Return: Lives with: Alone Support Systems: Spouse/significant other (Patient to go stay with spouse) Activities of Daily Living Ambulation: Independent Bathing/Dressing: Independent Elimination/Continence/Toileting: Independent Feeding: Independent Who Assists with Activities of Daily Living: Instrumental Activities of Daily Living Prescription Coverage: Yes Pharmacy Used: [facility] Medication Management: Independent Transportation/Shopping: (van, son will set up) Transportation Mode: Needs Assistance with Transportation at Discharge: No, Comments (son will arrange van transport home) Meal Preparation: Independent Laundry/Cleaning: Independent Finances/Bill Paying: Independent Communication: Independent Types of Care Services/Equipment Utilized Care Services: Dialysis Type: Durable Medical Equipment: Cane, Walker Patient's Goal/Discharge Plan Patient expects to be discharged to: home with home care Discharge Planning Actions: Continue to follow Patient's Choice Rights and [employer] and Collaborative Relationships Disclosed as Indicated for Post-Acute Care: Interdisciplinary Team Engagement: PT/OT Social Work Referral for: Additional Information: Patient admitted to H6 s/p anterior lumbar fusion. Reg 5 carb choice diet noted. Per RN accordian drain with increase output. PT/OT noted. PT recommending 24 hour supervision and home therapy. Met with pt at bedside, introduced self and explained role of TCC. Pt has insurance with RX coverage, active with PCP. Patient is Sabianism, son is in the room. Patient lives alone. Patient is going to stay with spouse after surgery. Son will arrange van transport home. Patient is agreeable to therapy at home. TCC to assist and follow as needed. Radha Martinez RN [id number] Note* Home Care - Yajaira Carrillo RN - 06/20/2023 2:25 PM EST Beam Warper following case for Discharge Needs. [facility] [id number] Note* Home Care - Yajaira Carrillo RN - 06/20/2023 2:25 PM EST Beam Warper following case for Discharge Needs. [facility] [id number] NotePHYSICAL THERAPY [facility] Initial Evaluation Name/MRN: Azar Triplett ([id number]) Evaluation Date: 06/20/2023 Date of : 1945 Admission Date: 06/19/2023 6:04 AM Age: 77 y.o. [facility] Discharge Recommendation: 24 hour supervision or assist, Home with Home health PT Equipment Needed: No Other: Owns a FWW Assessment IMPRESSION: Pt is s/p ALIF L4-S1, PSF L4-S1, and Laminectomy L1-5 06/19/23. He is currently SBA-Min assist for bed mobility, transfers, and ambulation. Reported chronic foot drop L LE that he reports feels a little better since surgery. He is hoping to return to home soon, willing to try Home Health PT. Anticipate pt to continue to progress to disch to home with assist 20/11 and Home Health PT. Diagnosis: s/p ALIF L4-S1, PSF L4-S1, and Laminectomy L1-5 06/19/23. Prognosis: fair Performance Deficits /Impairments: Increased Pain, Decreased Functional Mobility, Decreased Endurance, and Decreased Balance Decision Making: Medium Complexity Subjective Pt in the bed and agreeable to PT. RN just finished medicating pt. Pt reported pain is minimal and that the L LE strength does feel a little better since surgery. Pain: RN managing pain. 0-10 pain scale: 5/10 Location: Incision Past Medical History: Past Medical History: Diagnosis Date Abnormal EKG Back pain recent steroid [id number] Cardiac murmur echo 06-14-23 EF 40-45%, moderate to severe aortic valve stenosis Diabetes (HCC) Hypertension PVC's (premature ventricular contractions) Past Surgical History: Past Surgical History: Procedure Laterality Date ACHILLES TENDON SURGERY APPENDECTOMY BACK SURGERY 2006 herniated disc HERNIA REPAIR Left LUMBAR FUSION 06/19/2023 LUMBAR 4/5-SACRAL 1, TOTAL KNEE ARTHROPLASTY Right WISDOM TOOTH EXTRACTION Admission Diagnosis: Patient Active Problem List Diagnosis Date Noted Spondylolisthesis of lumbosacral region 06/19/2023 Delayed emergence from anesthesia 06/18/2023 Medical Precautions: No active isolations Proper PPE donned/doffed in accordance with facility standards. Fall Risk: Haro Fall Risk Score: 60 (High Risk) Precautions/Restrictions: Right LE Weight Bearing: Weight Bearing As Tolerated Left LE Weight Bearing: Weight Bearing As Tolerated Spine Precautions: No Bending, No Lifting, No Twisting for comfort Lines/Drains/Airways: x1 hemovac drain. Family/Caregiver Present: child(halima) (son Perry) Overall Cognitive Status: WNL Overall Orientation Status: Oriented x4 Vision: not assessed this session Hearing: normal Social/Functional History Patient admitted from home. Lives With: Spouse Type of Home: single family home Home Layout: Single Level Home Home Access: Level Entry Bathroom Shower/Tub: Toilet: N/A Home Equipment: front wheeled walker, cane, and hospital bed Homemaking Responsibilities: Independent Receives Help From: None Active Hand Cigar Maker: No (transports with horse and buggey) Son in room reported would not be able to assist much at home. Other family will be able to come in some to assist, but not consistently. Prior Level of Function ADL Assistance: Independent Ambulation Assistance: Independent with cane Transfer Assistance: Independent No prior bracing for the LE's. Reported some falls at home from weakness, including one in the past week. Objective Lower Extremity Assessment AROM: Exceptions: Decreased L ankle DF (just below neutral) PROM: Not assessed this session Strength: WNL 4+/5 knee extension bilat and R foot ankle DF. L ankle DF 3-/5 Bed Mobility: Supine to sit: Min Assist Rolling to right: Mod Assist Scooting: SBA HOB nearly flat, use of bed rails. Transfers Sit to stand: Contact Guard Stand to sit: Contact Guard Ambulation Ambulation 1 Assistive device(s) used: front wheeled walker Assist level: Contact Guard Distance (ft): 21 ft in room Quality of gait: slow clark, steppage gait for chronic R foot drop. Forward flexed posture (cues for upright stance) Exercises Exercises Knee Long Arc Quad: x10 bilat LE's Ankle Pumps: x10 bilat LE's Outcome Measures AM-PAC How much HELP from another person do you currently need Turning from your back to your side while in a flat bed without using bedrails?: A Little Moving from lying on your back to sitting on the side of a flat bed without using bedrails?: A Little Moving to and from a bed to a chair (including a wheelchair)?: A Little Standing up from a chair using your arms (wheelchair or bedside chair)?: A Little Walking in a hospital room?: A Little Stair climbing assessed?: No AM-PAC Inpatient Mobility Raw Score (No Stairs) : 15 JH-HLM JH-HLM Score: Walked 10 steps or more (i.e. walked to restroom) Plan Pt would benefit from skilled acute PT services to address Strengthening, ROM, Balance Training, Functional Mobility Training, Endurance Training, Gait Training, Saf (more content not included)...[facility]02-21-2024 NoteOrtho Progress Note Patient: Azar Triplett Date of : 1945 Acct: [id number] PCP: Seferino Hernandez Date of Admission: 06/19/2023 Date of Service: Pt seen/examined on 06/20/2023 SUBJECTIVE: Patient resting well overnight. Was able to sleep some. Denies significant pain. Denies abdominal pain, chest pain, shortness of breath. Has not yet ambulated. Overall doing well. OBJECTIVE: General: alert and oriented to person, place and time, well-developed and well-nourished, in no acute distress VITALS: BP 147/92 Pulse 111 Temp 37.7 ?C (99.8 ?F) (Temporal) Resp 16 SpO2 94% MSK exam: Spine Exam: * Exam was limited due to pain: No Direct Spine Inspection: Abdominal dressing C/D/I, posterior lumbar dressing C/D/I, drain in place with bloody drainage HF KE DF EHL PF RLE 3 4+ 4+ 4+ 4+ Sensation: Intact L2-S1 with normal sensation Pulses: DP Palpable PT Palpable TTP in the following areas: Nontender throughout extremity. Nontender throughout remainder of extremity Pain w Straight leg raise: No HF KE DF EHL PF LLE 3 4+ 3 3 4+ Sensation: Intact L2-S1 with normal sensation Pulses: DP Palpable PT Palpable TTP in the following areas: Nontender throughout extremity. Nontender throughout remainder of extremity Pain w Straight leg raise: No Deep Tendon Reflexes: Right Knee: 1+ Left Knee: 1+ Right Ankle: 1+ Left Ankle: 1+ Right Ankle Clonus: absent Left Ankle Clonus: absent Babinski: downgoing BL Lab Results Component Value Date WBC 9.1 06/18/2023 HGB 10.5 (L) 06/20/2023 HCT 30.3 (L) 06/20/2023 PLT 202 06/18/2023 ALT 44 06/18/2023 AST 49 (H) 06/18/2023 NA 134 (L) 06/20/2023 K 4.0 06/20/2023 CL 104 06/20/2023 CREATININE 0.83 06/20/2023 BUN 16 06/20/2023 CO2 19 (L) 06/20/2023 No results found for: RH, LABANTI ASSESSMENT AND PLAN: This is a 77 y.o. male with s/p ALIF L4/5, L5/S1, PSF L4-S1, lami L1-L5 -Decadron 10 mg q8h x 3 doses -Baclofen 10 mg q12h prn -Ancef 2 g q8h x 24hrs -XR in rad dept POD2 -Drain I/O q shift; Pull when POD3 <20cc x consecutive shifts -Diet: advance diet as tolerated to full -No DVT ppx, SCDs and ambulation -Multimodal pain control regimen ordered -WBAT; up w/ assistance -PT/OT -No spinal precautions -NV checks q4 hrs -Ortho primary TOSIN AGUILA MD 06/20/2023[facility]02-21-[facility] Plan of care note* Care Plan - Carrie Hagen RN - 06/20/2023 7:01 AM EST Problem: Pain - Adult Goal: Verbalizes/displays adequate comfort level or baseline comfort level Outcome: Progressing Problem: Safety - Adult Goal: Free from fall injury Outcome: Progressing Problem: Discharge Planning Goal: Discharge to home or other facility with appropriate resources Outcome: Progressing [facility]02-20-2024 Consult note* Tara Dominguez MD - 06/19/2023 10:18 PM ESTAssociated Order(s): IP CONSULT TO INTERNAL MEDICINE Images from the original note were not included. Hospital Medicine Consult Patient - Azar Triplett, Age - 77 y.o. - 1945 Room Number - [id number] Consulting - Guerda Alvarez MD Primary Care Physician [facility] - [id number] Date of Admission - 06/19/2023 6:04 AM Hospital Day - 0 Reason for Consult: Medical Management HISTORY OF PRESENT ILLNESS: Azar is a 77 y.o. male pmhx below was consulted for medical management post lumbar fusion surgery for spondylolisthesis to the lumbosacral region. Post- operatively he is doing well - has pain when he attempt to sit up, eating well, scare to work with PT tomorrow. Denies any fever, chills, cough, SOB or congestions. No nausea. . Past Medical History: Past Medical History: Diagnosis Date Abnormal EKG Back pain recent steroid [id number] Cardiac murmur echo 06-14-23 EF 40-45%, moderate to severe aortic valve stenosis Diabetes (HCC) Hypertension PVC's (premature ventricular contractions) Past Surgical History: Past Surgical History: Procedure Laterality Date ACHILLES TENDON SURGERY APPENDECTOMY BACK SURGERY 2006 herniated disc HERNIA REPAIR Left LUMBAR FUSION 06/19/2023 LUMBAR 4/5-SACRAL 1, TOTAL KNEE ARTHROPLASTY Right WISDOM TOOTH EXTRACTION Medications: acetaminophen, 650 mg, Oral, q6h ceFAZolin, 2,000 mg, IntraVENous, q8h dexAMETHasone, 10 mg, IntraVENous, q8h famotidine, 20 mg, Oral, BID sodium chloride 0.9%, 10 mL, IntraVENous, 2 times per day lactated Ringer's, 50 mL/hr, Last Rate: Stopped (06/19/23 1410) PRN medications: baclofen, HYDROmorphone OR HYDROmorphone, hydrOXYzine HCl, naloxone, ondansetron ODT OR ondansetron, oxyCODONE-acetaminophen OR oxyCODONE-acetaminophen, polyethylene glycol (PEG) 3350, sodium chloride, sodium chloride 0.9% Allergies: Patient has no known allergies. Social History: Social History Socioeconomic History Marital status: Spouse name: Not on file Number of children: Not on file Years of education: Not on file Highest education level: Not on file Occupational History Not on file Tobacco Use Smoking status: Never Smokeless tobacco: Never Vaping Use Vaping Use: Never used Substance and Sexual Activity Alcohol use: Yes Alcohol/week: 2.0 standard drinks of alcohol Types: 2 Glasses of wine per week Drug use: Never Sexual activity: Not on file Other Topics Concern Not on file Social History Narrative Not on file Social Determinants of Health Financial Resource Strain: Not on file Food Insecurity: Not on file Transportation Needs: Not on file Physical Activity: Not on file Stress: Not on file Social Connections: Not on file Intimate Partner Violence: Not on file Housing Stability: Not on file Family History: No family history on file. REVIEW OF SYSTEMS: 10 point ROS obtained, as per HPI, otherwise NEG Physical Exam: Vitals: BP 157/83 (BP Location: Left arm, Patient Position: Lying) Pulse 102 Temp 37.7 C (99.9 F) (Temporal) Resp 20 SpO2 96% BMI Classification: Overweight (BMI 25.0-29.9) Pulse Ox: SpO2 Av.9 % Min: 95 % Max: 100 % Supplemental O2: O2 Flow Rate (L/min): 2 L/min Physical Exam Vitals and nursing note reviewed. Constitutional: Appearance: He is normal weight. HENT: Head: Normocephalic. Nose: No congestion or rhinorrhea. Mouth/Throat: Pharynx: Oropharynx is clear. Eyes: Conjunctiva/sclera: Conjunctivae normal. Pupils: Pupils are equal, round, and reactive to light. Cardiovascular: Rate and Rhythm: Normal rate and regular rhythm. Heart sounds: No murmur heard. No gallop. Pulmonary: Breath sounds: No wheezing or rales. Abdominal: General: Bowel sounds are normal. There is no distension. Tenderness: There is no abdominal tenderness. There is no guarding. Genitourinary: Comments: Metcalf draining clear urine Musculoskeletal: General: Tenderness and signs of injury present. Right lower leg: Edema present. Left lower leg: Edema present. Comments: Non-pitting edema bilaterally Dressing intact to lower spine around surgical site Blood in drainage tube Skin: Capillary Refill: Capillary refill takes less than 2 seconds. Findings: No bruising or erythema. Neurological: Mental Status: He is alert and oriented to person, place, and time. LABS: Recent Results (from the past 24 hour(s)) POCT glucose meter Collection Time: 06/19/23 6:16 AM Result Value Ref Range Glucose 120 (H) 70 - 100 mg/dL POCT glucose meter Collection Time: 06/19/23 2:17 PM Result Value Ref Range Glucose 237 (H) 70 - 100 mg/dL POCT glucose meter Collection Time: 06/19/23 4:43 PM Result Value Ref Range Glucose 245 (H) 70 - 100 mg/dL Urine Culture: Results for orders placed or performed in visit on 06/05/23 Urine culture Specimen: Urine, Clean Catch Result Value Ref Range Urine Culture Insignificant growth based on current clinical guidelines IMAGING: See report Assessment Data: (CAT1) Reviewed 3 or more notes from different specialty or health system (each=1). (CAT1) Reviewed 3 or more labs/studies ordered by another provider not previously counted (each=1, panels count as 1). (LOW: 2x CAT1 or independent historian MOD: 3x CAT1 or 1x CAT3 EXTENSIVE: 3x CAT1 and 1x CAT3) Acute, acute on chronic, unstable/uncontrolled chronic problems/diagnoses: Spondylolisthesis, lumbosacral region HF pEF - EF 40-45%, K 3.3 - given potassium prior to surgery Aortic valve stenosis - followed by cardiology outpatient HTN Continue amlodipine Continue hydrochlorothiazide Continue lisinopril Vitamin D deficiency Diabetes mellitus - last a1c 8.2% HOLD glipizide - substituted for amaryl Sliding scale with qac and qhs Hypoglycemic protocol Maintain ideal glucose 140-180 GERD - continue H2 ruchi Plan As a result of the above findings & factors, the following mgmt was pursued: - - abx, steroids, PRN pain medications, DVT Ppx, GI Ppx. Home medications reviewed and resumed as indicated. Sliding scale insulin instead of home oral medications, PT/OT eval and treat, labs in theAM. Discharge planning per ortho. - am labs, replace lytes prn - PT/OT/CM/SW - delirium precautions: increase activity and limit nighttime disturbances - DVT prophylaxis: SCDs and encourage ambulation Complexity: Acute, complicated injury (MOD). Risk: Admission to hospital-level care was considered or occurred (HIGH). Consult to surgery for major surgery, or minor surgery with identified patient or procedural risk factors, was considered or occurred (MOD). Advance Directive: Full Code Anticipated Discharge - Date - TBD - Location - home vs home care - Pending the following - clinical improvement and clearance from ortho Total time spent (which include face to face and non face to face encounters) : 75 minutes Toxic drug monitoring/narrow therapeutic index drug monitoring : # Drug name : insulin # Route administered : subq # Method of monitoring : hypoglycemia protocol No emergency contact information on file. Tara Dominguez MD Division of Hospitalist Medicine [facility] [place] Work Phone: [phone] 350-218502-20-2024 Consult note* Tara Dominguez MD - 06/19/2023 10:18 PM ESTAssociated Order(s): IP CONSULT TO INTERNAL MEDICINE Images from the original note were not included. Hospital Medicine Consult Patient - Azar Triplett, Age - 77 y.o. - 1945 Room Number - [id number] Consulting - Guerda Alvarez MD Primary Care Physician - Seferino Hernandez Date of Admission - 06/19/2023 6:04 AM Hospital Day - 0 Reason for Consult: Medical Management HISTORY OF PRESENT ILLNESS: Azar is a 77 y.o. male pmhx below was consulted for medical management post lumbar fusion surgery for spondylolisthesis to the lumbosacral region. Post- operatively he is doing well - has pain when he attempt to sit up, eating well, scare to work with PT tomorrow. Denies any fever, chills, cough, SOB or congestions. No nausea. . Past Medical History: Past Medical History: Diagnosis Date Abnormal EKG Back pain recent steroid [id number] Cardiac murmur echo 06-14-23 EF 40-45%, moderate to severe aortic valve stenosis Diabetes (HCC) Hypertension PVC's (premature ventricular contractions) Past Surgical History: Past Surgical History: Procedure Laterality Date ACHILLES TENDON SURGERY APPENDECTOMY BACK SURGERY 2006 herniated disc HERNIA REPAIR Left LUMBAR FUSION 06/19/2023 LUMBAR 4/5-SACRAL 1, TOTAL KNEE ARTHROPLASTY Right WISDOM TOOTH EXTRACTION Medications: acetaminophen, 650 mg, Oral, q6h ceFAZolin, 2,000 mg, IntraVENous, q8h dexAMETHasone, 10 mg, IntraVENous, q8h famotidine, 20 mg, Oral, BID sodium chloride 0.9%, 10 mL, IntraVENous, 2 times per day lactated Ringer's, 50 mL/hr, Last Rate: Stopped (06/19/23 1410) PRN medications: baclofen, HYDROmorphone OR HYDROmorphone, hydrOXYzine HCl, naloxone, ondansetron ODT OR ondansetron, oxyCODONE-acetaminophen OR oxyCODONE-acetaminophen, polyethylene glycol (PEG) 3350, sodium chloride, sodium chloride 0.9% Allergies: Patient has no known allergies. Social History: Social History Socioeconomic History Marital status: Spouse name: Not on file Number of children: Not on file Years of education: Not on file Highest education level: Not on file Occupational History Not on file Tobacco Use Smoking status: Never Smokeless tobacco: Never Vaping Use Vaping Use: Never used Substance and Sexual Activity Alcohol use: Yes Alcohol/week: 2.0 standard drinks of alcohol Types: 2 Glasses of wine per week Drug use: Never Sexual activity: Not on file Other Topics Concern Not on file Social History Narrative Not on file Social Determinants of Health Financial Resource Strain: Not on file Food Insecurity: Not on file Transportation Needs: Not on file Physical Activity: Not on file Stress: Not on file Social Connections: Not on file Intimate Partner Violence: Not on file Housing Stability: Not on file Family History: No family history on file. REVIEW OF SYSTEMS: 10 point ROS obtained, as per HPI, otherwise NEG Physical Exam: Vitals: BP 157/83 (BP Location: Left arm, Patient Position: Lying) Pulse 102 Temp 37.7 C (99.9 F) (Temporal) Resp 20 SpO2 96% BMI Classification: Overweight (BMI 25.0-29.9) Pulse Ox: SpO2 Av.9 % Min: 95 % Max: 100 % Supplemental O2: O2 Flow Rate (L/min): 2 L/min Physical Exam Vitals and nursing note reviewed. Constitutional: Appearance: He is normal weight. HENT: Head: Normocephalic. Nose: No congestion or rhinorrhea. Mouth/Throat: Pharynx: Oropharynx is clear. Eyes: Conjunctiva/sclera: Conjunctivae normal. Pupils: Pupils are equal, round, and reactive to light. Cardiovascular: Rate and Rhythm: Normal rate and regular rhythm. Heart sounds: No murmur heard. No gallop. Pulmonary: Breath sounds: No wheezing or rales. Abdominal: General: Bowel sounds are normal. There is no distension. Tenderness: There is no abdominal tenderness. There is no guarding. Genitourinary: Comments: Metcalf draining clear urine Musculoskeletal: General: Tenderness and signs of injury present. Right lower leg: Edema present. Left lower leg: Edema present. Comments: Non-pitting edema bilaterally Dressing intact to lower spine around surgical site Blood in drainage tube Skin: Capillary Refill: Capillary refill takes less than 2 seconds. Findings: No bruising or erythema. Neurological: Mental Status: He is alert and oriented to person, place, and time. LABS: Recent Results (from the past 24 hour(s)) POCT glucose meter Collection Time: 06/19/23 6:16 AM Result Value Ref Range Glucose 120 (H) 70 - 100 mg/dL POCT glucose meter Collection Time: 06/19/23 2:17 PM Result Value Ref Range Glucose 237 (H) 70 - 100 mg/dL POCT glucose meter Collection Time: 06/19/23 4:43 PM Result Value Ref Range Glucose 245 (H) 70 - 100 mg/dL Urine Culture: Results for orders placed or performed in visit on 06/05/23 Urine culture Specimen: Urine, Clean Catch Result Value Ref Range Urine Culture Insignificant growth based on current clinical guidelines IMAGING: See report Assessment Data: (CAT1) Reviewed 3 or more notes from different specialty or health system (each=1). (CAT1) Reviewed 3 or more labs/studies ordered by another provider not previously counted (each=1, panels count as 1). (LOW: 2x CAT1 or independent historian MOD: 3x CAT1 or 1x CAT3 EXTENSIVE: 3x CAT1 and 1x CAT3) Acute, acute on chronic, unstable/uncontrolled chronic problems/diagnoses: Spondylolisthesis, lumbosacral region HF pEF - EF 40-45%, K 3.3 - given potassium prior to surgery Aortic valve stenosis - followed by cardiology outpatient HTN Continue amlodipine Continue hydrochlorothiazide Continue lisinopril Vitamin D deficiency Diabetes mellitus - last a1c 8.2% HOLD glipizide - substituted for amaryl Sliding scale with qac and qhs Hypoglycemic protocol Maintain ideal glucose 140-180 GERD - continue H2 ruchi Plan As a result of the above findings & factors, the following mgmt was pursued: - - abx, steroids, PRN pain medications, DVT Ppx, GI Ppx. Home medications reviewed and resumed as indicated. Sliding scale insulin instead of home oral medications, PT/OT eval and treat, labs in theAM. Discharge planning per ortho. - am labs, replace lytes prn - PT/OT/CM/SW - delirium precautions: increase activity and limit nighttime disturbances - DVT prophylaxis: SCDs and encourage ambulation Complexity: Acute, complicated injury (MOD). Risk: Admission to hospital-level care was considered or occurred (HIGH). Consult to surgery for major surgery, or minor surgery with identified patient or procedural risk factors, was considered or occurred (MOD). Advance Directive: Full Code Anticipated Discharge - Date - TBD - Location - home vs home care - Pending the following - clinical improvement and clearance from ortho Total time spent (which include face to face and non face to face encounters) : 75 minutes Toxic drug monitoring/narrow therapeutic index drug monitoring : # Drug name : insulin # Route administered : subq # Method of monitoring : hypoglycemia protocol No emergency contact information on file. Tara Dominguez MD Division of Hospitalist Medicine Acute care [facility] documented in this [facility]02-20-2024 Note* Perioperative Nursing Note - Francesca Carolina RN - 06/19/2023 4:13 PM EST Pt son, Perry, updated at this time. Pt family leaving for dinner- asked to be called once pt has room assigned. [facility]02-20-2024 Note* Perioperative Nursing Note - Francesca Carolina RN - 06/19/2023 4:13 PM EST Pt son, Perry, updated at this time. Pt family leaving for dinner- asked to be called once pt has room assigned. [facility]02-20-2024 NotePatient: Azar Triplett Procedure Summary Date: 06/19/23 Room / Location: [address] Operating Room Anesthesia Start: 729 Anesthesia Stop: 1409 Procedures: ANTERIOR LUMBAR INTERBODY FUSION LUMBAR 4/5-SACRAL 1, INTERBODY DEVICE BONE MORPHOGENETIC PROTEIN, POSTERIOR FUSION LUMBAR 4/5-SACRAL 1, DECOMPRESSION LUMBAR 7-4-6-4-5-SACRAL 1, PEDICLE INSTRUMENTATION AND LOCAL BONE (Back) ANTERIOR MICRODISCECTOMY AND FUSION EACH ADDITIONAL LEVEL (Back) INSERTION OF INTERBODY BIOMECHANICAL DEVICE (Back) POSTERIOR LUMBAR FUSION (Back) POSTERIOR OR POSTEROLATERAL FUSION EACH ADDITIONAL LEVEL (Back) POSTERIOR LUMBAR LAMINECTOMY FACETECTOMY FORAMINOTOMY AND DECOMPRESSION (Spine Lumbar) POSTERIOR CERVICAL/THORACIC/LUMBAR LAMINECTOMY FACETECTOMY FORAMINOTOMY AND DECOMPRESSION EACH ADDITIONAL (Back) POSTERIOR SPINAL INSTRUMENTATION 3 TO 6 LEVELS (Back) Diagnosis: Spondylolisthesis, lumbosacral region (Spondylolisthesis, lumbosacral region [M43.17]) Surgeons: Guerda Alvarez MD Responsible Provider: Errol Valadez CRNA Anesthesia Type: general, regional ASA Status: 3 Anesthesia Type: general, regional Vitals Value Taken Time BP 112/69 06/19/23 1403 Temp 97.5 06/19/23 1412 Pulse 94 06/19/23 1411 Resp 38 06/19/23 1411 SpO2 100 % 06/19/23 1411 Vitals shown include unfiled device data. Anesthesia Post Evaluation Patient location during evaluation: PACU Patient participation: waiting for patient participation Level of consciousness: responsive to light touch Pain management: satisfactory to patient Airway patency: patent Dental Injury: no Cardiovascular status: acceptable, blood pressure returned to baseline and hemodynamically stable Respiratory status: acceptable, spontaneous ventilation and face mask Hydration status: euvolemic Nausea/Vomiting: controlled No notable events documented. Patient can be discharged once all PACU criteria has been met.[facility] [id number] NotePatient: Azra Triplett Procedure Summary Date: 06/19/23 Room / Location: [address] Operating Room Anesthesia Start: 0730 Anesthesia Stop: 1410 Procedures: ANTERIOR LUMBAR INTERBODY FUSION LUMBAR 4/5-SACRAL 1, INTERBODY DEVICE BONE MORPHOGENETIC PROTEIN, POSTERIOR FUSION LUMBAR 4/5-SACRAL 1, DECOMPRESSION LUMBAR 4-3-5-4-5-SACRAL 1, PEDICLE INSTRUMENTATION AND LOCAL BONE (Back) ANTERIOR MICRODISCECTOMY AND FUSION EACH ADDITIONAL LEVEL (Back) INSERTION OF INTERBODY BIOMECHANICAL DEVICE (Back) POSTERIOR LUMBAR FUSION (Back) POSTERIOR OR POSTEROLATERAL FUSION EACH ADDITIONAL LEVEL (Back) POSTERIOR LUMBAR LAMINECTOMY FACETECTOMY FORAMINOTOMY AND DECOMPRESSION (Spine Lumbar) POSTERIOR CERVICAL/THORACIC/LUMBAR LAMINECTOMY FACETECTOMY FORAMINOTOMY AND DECOMPRESSION EACH ADDITIONAL (Back) POSTERIOR SPINAL INSTRUMENTATION 3 TO 6 LEVELS (Back) Diagnosis: Spondylolisthesis, lumbosacral region (Spondylolisthesis, lumbosacral region [M43.17]) Surgeons: Guerda Alvarez MD Responsible Provider: Errol Valadez CRNA Anesthesia Type: general, regional ASA Status: 3 Anesthesia Type: general, regional Vitals Value Taken Time BP 112/69 06/19/23 1403 Temp 97.5 06/19/23 1411 Pulse 93 06/19/23 1410 Resp 31 06/19/23 1410 SpO2 100 % 06/19/23 1410 Vitals shown include unfiled device data. Anesthesia Post Evaluation Patient location during evaluation: PACU Patient participation: waiting for patient participation Level of consciousness: responsive to light touch Pain management: satisfactory to patient Multimodal analgesia pain management approach Airway patency: patent Two or more strategies used to mitigate risk of obstructive sleep apnea Cardiovascular status: acceptable and hemodynamically stable Respiratory status: acceptable and face mask Hydration status: acceptable No notable events documented. MIPS #[id number] PONV Patient received an inhalational anesthetic (4554F) Patient does not exhibit three or more risk factors for PONV (X0430)) MIPS # 424 Perioperative Temperature Management Anesthesia time was 60 minutes or longer (4255F) Anesthesai administered was General (inhalational or TIVA) or Neuraxial block (X0424) At least one body temperature greater than 95.8F/35.5C achieved within the 30 mins immediately prior to or the 15 minutes immediately following anesthesia end time (G9771) MIPS #477 Multimodal Pain Management Not emergent case Patient was administered multimodal pain management (two or more drugs and/or interventions excluding systemic opioids) in the periopeartive period occurring at some time between 6 hours prior to anesthesia start time until discharged from PACU (G2148) MIPS #404 Anesthesiology Smoking Abstinence The patient is not a current smoker (e.g. cigarette, cigar, pipe, e-cigarette/vaping/marijuana) If no stop here (XX404) I completed my handoff to the receiving clinician during which we: 1. Identified the patient 2. Identified the responsible provider 3. Reviewed the pertinent medical history 4. Discussed the surgical course 5. Reviewed intra-op anesthesia management and issues during anesthesia 6. Set expectations for post-procedure period 7. Allowed opportunity for questions and acknowledgement of understanding.[facility]02-20-2024 Note* Perioperative Nursing Note - Perry Medina RN - 06/19/2023 3:47 PM EST Patient report is called to H6 LOUIS Gilman and denies any further questions at this time. Patient is resting comfortably at this time and asleep but arouses to voice. [id number]* Perioperative Nursing Note - Perry Medina RN - 06/19/2023 3:47 PM EST Patient report is called to H6 LOUIS Gilman and denies any further questions at this time. Patient is resting comfortably at this time and asleep but arouses to voice. [id number] Discharge instructions* Discharge Instructions* Raine Hannon MD - 06/19/2023 2:35 PM EST Images from the original note were not included. DISCHARGE INSTRUCTIONS LUMBAR FUSION Your surgeon has performed an operation on your lumbar spine (low back) to fuse two or more of yourvertebrae (bones) together. This procedure is performed to treat a number of different spinal problems, including narrowing of the spinal canal (stenosis), herniated disks, degenerative changes, scoliosis (curvature of the spine) and injuries. Many times, patients feel better immediately after surgery and can't overdo it. Even if you feel well, it is important that you follow these instructions and activity guidelines. If you do not let your back heal properly from the surgery, you can increase the chance of return of your symptoms andother complications. The following her instructions to help any recovery when she had been discharged from the hospital. INCISION: Please check the area around your bandage(s) at least twice daily for signs and symptoms of infection: ALWAYS wash your hands before touching your incision or the area surrounding it There will be surgical glue over the incision- DO NOT pick or remove this glue, it will fall of naturally. You may have any sutures that needs to be removed- this will be done at your initial post-operativevisit by our office staff Your sutures may cause itching please avoid scratching/itching the area it is ok to gently pat over incision with a clean/soft cloth. DO NOT scrub/scratch. You may remove the outer dressing at 7 days post-operatively. There may be a mesh-type dressing directly over the incision- this will fall off on its own, DO NOTpick or pull. DO NOT apply anything over your incision including lotions, creams, Neosporin, or scar creams. DRAIN: Drain is to kept on suction at all times and emptied twice a day with the output recorded each timethe drain is emptied. Continue this until patient is seen at outpatient follow-up with Dr. Page. If the drain stops working or becomes disconnected please call the office at [phone] for instruction. If unable to reach the office, patient should be sent to the ED for evaluation. BRACE: You must wear your brace at all times when you re out of bed except for showering. Wear a T-shirt under your brace so that it isn t in direct contact with your bare skin or incision. The brace may cause you to sweat and you may feel warm; this can irritate your incision so pay special attention to the above incision instructions. SHOWERING: You may shower as normal with outer dressing still in place. You may continue to shower once you have removed your outer dressing (see above). No tub baths, hot tubs or whirlpools for 6 weeks. Keep Incision dry as possible- you may wash your incision daily with gentle soap and water. Do not scrub your incision, rub or scratching her incision. Use a soft cloth and lightly dab/pat dry your incision You may reapply a clean dry dressing to the incision daily after showering or leave open to air. EXERCISE/ ACTIVITY RESTRICTIONS: You have unlimited walking and stair climbing privileges. Walking outside (in nice weather only andon stable ground) or walking on a treadmill (no incline) is also allowed Please get up and walk at least 4 times daily This will help prevent post-operative blood clots and promote circulation NO deep bending, lifting or twisting. Bend at the knees Avoid lifting objects heavier than 10-15 pounds We recommend that you avoid strenuous exercise. Do not jog, run, bicycle, lift weights or do any other strenuous exercise unless your doctor says that it is ok Where possible, avoid household activities that involve lifting, reaching, pushing or pulling, suchas laundry, vacuuming and childcare Wear your brace, if given, while out of bed. PAIN: Take pain medication as prescribed. As your pain level decreases, you may begin to take [id number] Extra Strength Tylenol. The maximum Tylenol you are able to take is 3000 mg a day total. PLEASE AVOID ANTI-INFLAMMATORY MEDICATIONS (NSAIDS; ie: Mobic, ibuprofen, aleve, motrin, diclofenac) UNTIL YOUR DOCTOR OR CAFETERIA CASHIER/PA ADVISE OTHERWISE (TYPICALLY 3 MONTHS AFTER SURGERY) You should try to wean from your pain medicine in 2-3 weeks. It is not recommended to drive or operate heavy machinery while taking narcotic pain medication. You will be provided with a prescription for pain medication when you are discharged from the hospital Moving forward, you are to contact the office at [phone] or via Kir[employer], for additional refills You can receive up to 2 additional refills after discharge Please contact our office 2-3 days before you run out of your medication, that way we can refill your prescription in a timely manner Refills will NOT be given over the weekend or after office hours (8:30am-4:00pm). Narcotic pain medicine can cause constipation. You may obtain the following medication to prevent constipation. Colace twice daily. Purchase over the counter. (May substitute with similar med such as Senna.) Miralax 1-2 times daily. Over the counter. Twice daily if you are feeling constipated. Magnesium Citrate. OTC. If no bowel movement in a few days and you are becoming uncomfortable. Enema. Over the counter. If no relief with above regiment. You may also be given a prescription for a steroid and a muscle relaxer to help with pain. SEXUAL ACTIVITY: You may resume sexual activity when your pain level reduces and you can do activities comfortably AND within the activity restrictions we have listed (as above) If it hurts, don't do it DRIVING: You may NOT drive a car until told otherwise by your physician (usually at your first office visit). You may be a passenger for short distances (20-30 minutes). If you must take a longer trip, make sure to make several pit stops so that you can walk around andstretch your legs. Reclining the passenger seat seems to be the most comfortable position for most patients. FOLLOW-UP APPOINTMENTS: Schedule a follow up appointment in two weeks. QUESTIONS, CONCERNS and WHEN TO CALL US: Although your surgery and recovery will likely be uneventful, you may have some residual numbness, muscle aches and pains in your back and/or legs; this is normal and should improve in the next few weeks Should you experience any of the following: CONTACT US IMMEDIATELY: New numbness or weakness Pain that is progressively getting worse and is not relieved by your pain medication, muscle relaxers, rest and warm compresses Bleeding, redness, swelling, pain, drainage from your surgical incision or if your incision is opening Chills or flu-like symptoms Fever greater than 101.0 F Inability to eat, drink fluids or take medications Problems with bowel or bladder functions Difficulty breathing or shortness of breath Warmth, tenderness or swelling in your calf CONTACT/OFFICE INFORMATION: If you have any additional questions/concerns, please contact the office at [phone] For life-threathening emergency, please call 911 * Discharge Instr - FELIBERTO* Deb Salas RN - 06/23/2023 10:21 AM EST Continuity of Care Form Patient Name: Azar Triplett : 1945 Admit date: 06/19/2023 Discharge date: 06/23/23 Code Status Order: Full Code Advance Directives: N Admitting Physician: Guerda Alvarez MD PCP: Seferino Hernandez Discharging Nurse: Deb Discharging Hospital Unit/Room#: [id number]/[id number] A Discharging Unit Emergency Contact: Extended Emergency Contact Information Primary Emergency Contact: Perry Triplett Mobile Relation: Son Past Surgical History: Past Surgical History: Procedure Laterality Date ACHILLES TENDON SURGERY APPENDECTOMY BACK SURGERY 2006 herniated disc HERNIA REPAIR Left LUMBAR FUSION 06/19/2023 LUMBAR 4/5-SACRAL 1, TOTAL KNEE ARTHROPLASTY Right WISDOM TOOTH EXTRACTION Immunization History: Immunization History Administered Date(s) Administered Pfizer SARS-CoV-2 Vaccination 08/18/2020, 09/07/2020 Active Problems: Medical Problems Problem List * (Principal) Spondylolisthesis of lumbosacral region Delayed emergence from anesthesia Isolation/Infection: No active isolations No active infections Nurse Assessment: Last Vital Signs: BP 115/78 (BP Location: Left arm, Patient Position: Sitting) Pulse 99 Temp 37.1 C (98.8 F) (Temporal) Resp 16 Ht 1.651 m (5' 5) Wt 82 kg (180 lb 12.4 oz) SpO2 97% BMI30.08 kg/m Last documented pain score (0-10 scale): Last Weight: Wt Readings from Last 1 Encounters: 06/22/23 82 kg (180 lb 12.4 oz) Mental Status: FELIBERTO Patient Mental Status: oriented, alert, coherent, logical, thought processes intact, and able to concentrate and follow conversation IV Access: FELIBERTO IV Access: None Nursing Mobility/ADLs: Walking Minimal assistance Transfer Minimal assistance Bathing Minimal assistance Dressing Minimal assistance Toileting Independent Feeding Independent Hasher Machine Operator Minimal assistance Med Delivery yes Wound Care Documentation and Therapy: Wound/Incision 06/19/23 Incision Abdomen Left;Upper (Active) Site Assessment Unable to assess 06/23/23 0851 Jael-Wound Assessment Dry;Intact;Clean 06/19/23 1600 Drainage Description Unable to assess 06/22/232199 Odor None 06/21/232044 Drainage Amount None 06/21/232044 Primary Dressing Sterile dressing 06/22/232199 Dressing Status Clean, dry & intact 06/23/23 0851 Number of days: 4 Wound/Incision 06/19/23 Incision Back Lower;Midline (Active) Site Assessment Unable to assess 06/23/23 0851 Jael-Wound Assessment Clean;Dry;Intact 06/19/23 1600 Drainage Description Unable to assess 06/20/232035 Odor None 06/22/232199 Drainage Amount None 06/22/232199 Primary Dressing Gauze;Transparent film 06/23/23 0851 Dressing Status Clean, dry & intact 06/23/23 0851 Number of days: 3 Elimination: Continence: Bowel: yes Bladder: yes Urinary Catheter: None Colostomy/Ileostomy/Ileal Conduit: None Date of Last BM: 06/23/23 Intake/Output Summary (Last 24 hours) at 06/23/2023 1020 Last data filed at 06/23/2023 0615 Gross per 24 hour Intake 550 ml Output 585 ml Net -35 ml I/O last 3 completed shifts: In: 550 (6.7 mL/kg) [P.O.:550] Out: 782 (9.5 mL/kg) [Urine:300 (0.1 mL/kg/hr); Drains:482] Weight: 82 kg Safety Concerns: Fall risk Impairments/Disabilities: none Nutrition Therapy: Current Nutrition Therapy: Oral diet: general Routes of Feeding: oral Liquids: thin liquids Daily Fluid Restriction: no Last Modified Barium Swallow with Video (Video Swallowing Test): not done Treatments at the Time of Hospital Discharge: Respiratory Treatments: none Oxygen Therapy: is not on home oxygen therapy. Ventilator: No ventilator support Rehab Therapies: physical therapy and occupational therapy Weight Bearing Status/Restrictions: no restriction Other Medical Equipment (for information only, NOT a DME order): wheeled walker Other Treatments: none Patient's personal belongings (please select all that are sent with patient): none RN SIGNATURE: MANAGEMENT/SOCIAL WORK SECTION Inpatient Status Date: 06/19/23 Readmission Risk Assessment Score: @READMISSIONRISKDETAILS@ Discharging to Facility/ Agency Name: [facility] [place] Address: Fax: Dialysis Facility (if applicable) Name: Address: Dialysis Schedule: Phone: Fax: Timing Inspector/[employer] signature: ICIAN SECTION Prognosis: good Condition at Discharge: stable Rehab Potential (if transferring to Rehab): good Recommended Labs or Other Treatments After Discharge: PT Physician Certification: I certify the above information and transfer of Azar Triplett is necessary for the continuing treatment of the diagnosis listed and that he requires retirement facilityfor less than 30 days. Update Admission H&P: No change in H&P PHYSICIAN SIGNATURE: documented in this [facility]02-20-2024 NotePeripheral IV Date/Time: 06/19/2023 9:00 AM Placement Needle size: 16 G Laterality: right Location: arm Local anesthetic: none Site prep: alcohol Technique: anatomical landmarks Attempts: [address] [place], [place] [id number] NotePeripheral IV Date/Time: 06/19/2023 8:00 AM Placement Needle size: 18 G Laterality: right Location: arm Local anesthetic: none Site prep: alcohol Technique: anatomical landmarks Attempts: [address] [place], [place] [id number] NoteArterial Line: Date/Time: 06/19/2023 7:54 AM An arterial line was placed Procedure performed using ultrasound guidance - Image permanently retained with wire or catheter in vein.in the Procedural for the following indication(s): continuous blood pressure monitoring and blood sampling needed. A 20 gauge (size), 1 and 3/4 inch (length), Arrow (type) catheter was placed, into the Left radial artery, secured by Tegaderm and tape. Events: patient tolerated procedure well with no complications. Staffing Performed: SRNA, anesthesiologist and BISQUE GRADER Anesthesiologist: Gerry Buchanan MD Resident/BISQUE GRADER: Errol Valadez, [place] [address]-20-2024 Note Airway Date/Time: 06/19/2023 7:58 AM Urgency: scheduled Airway not difficult General Information and Staff Patient location during procedure: Procedural Resident/BISQUE GRADER: Errol Valadez CRNA Performed: BISQUE GRADER and SRNA Indications and Patient Condition Indications for airway management: anesthesia Sedation level: Asleep Preoxygenated: yes Patient position: sniffing MILS maintained throughout Mask difficulty assessment: 1 - vent by mask Final Airway Details Final airway type: endotracheal airway Successful airway: ETT Cuffed: yes Successful intubation technique: direct laryngoscopy Blade: Ladonna Blade size: #3 ETT size (mm): 8.0 Cormack-Lehane Classification: grade I - full view of glottis Placement verified by: chest auscultation and capnometry Measured from: lips ETT to lips (cm): 24 Number of attempts at approach: [address] [place], [place] [id number] Note* Op Note - Karol Pradhan MD - 06/19/2023 7:30 AM EST OPERATIVE NOTE Azar Loyola Triplett 1945 DATE OF PROCEDURE: 06/19/2023 SURGEON: Karol Pradhan MD, Kaylee REYNOSO Procedure: Anterior lumbar spine exposure with discectomy and fusion of L4-S1 Preoperative Diagnosis: Degenerative disc disease of L4-S1 Postoperative Diagnosis: Same Anesthesia: General. Assist: Tahvilian Estimated Blood Loss: 200 cc Indications: 77-year-old white male brought to the operating room by Dr. Page for an anterior lumbar spine approach. Description of Procedure: Patient was placed in the supine position and general anesthesia was induced. Abdomen was shaved prepped and draped in the usual sterile fashion. A transverse left lower quadrant incision was made and through this incision the left rectus sheath was identified. A Z shaped incision was made in the left rectus sheath and then the left rectus muscle was retracted laterally.Using blunt dissection the retroperitoneum was dissected down to the iliac vessels and spine. The L5-S1 disc space was exposed between the iliac vessels. The middle sacral artery and vein were ligated with hemoclips and divided to facilitate the exposure. The L4-5 disc space was exposed by mobilizin g the aorta and vena cava to the right side of the spine and several lumbar branches were ligated to facilitate this exposure. Once both levels were adequately exposed Dr. Page proceeded with his portion of the case which will be dictated separately. Once he was finished the retractors were removed placing the iliac vessels and retroperitoneum back into normal position. The anterior rectus sheath was then reconstructed with 0 PDS suture followed by subcutaneous closure and skin isabel. Estimated blood loss for the procedure was 200 cc and sponge needle counts were correct at the end of the case. Karol Pradhan MD [employer] Phone: 1(917) 838-677402-20-2024 Note* Op Note - Guerda Alvarez MD - 06/19/2023 7:30 AM EST OPERATIVE NOTE Patient Name: Azar Triplett : 1945 DATE OF PROCEDURE: 06/19/2023 SURGEON: Guerda Page MD PREOPERATIVE DIAGNOSES: Spondylolisthesis, Stenosis POSTOPERATIVE DIAGNOSES: Same PROCEDURE: Anterior Lumbar Interbody Fusion L4-5-S1, LT Peek Cage, Bone Morphogenic Protein Posterior Fusion L4-5-S1, Decompression S9-7-0-4-5-S1, Solera Pedicle Instrumentation, Local Bone ANESTHESIA: General ESTIMATED BLOOD LOSS: 1000 cc INDICATION FOR PROCEDURE: Back and leg pain DESCRIPTION OF PROCEDURE: The patient is a 77-year-old gentleman who comes in with back and bilateral leg pain with claudication from severe multilevel spinal stenosis and segmental instability nonresponsive to conservative care. In the OR prior to the induction of anesthesia he was identified. After adequate of anesthesia he was positioned on the flat Myke table supine. We used preoperative antibiotics compression boots and TXA. His abdominal and pelvic region was prepped and draped in usual sterile fashion. Timeoutwas performed. The anterior exposure was performed by Dr. Karol Pradhan which will be dictated under separate heading. Dr. Pradhan gave us excellent visualization of the anterior L4-5 and L5-S1 disc spaces with radiologic markers marking her levels. We entered the 4 5 disc and with pituitaries performed a subtotal discectomy. Using sequential dilators and sizers we were able to reduce the spondylolisthesis and restore the disc height to 10 mm. Double barrel LT cage boat hand was then tamped into position. We reamed to 32 mm x 2. We inserted a size 14 x 23 threaded LT peek cages x 2. IntraOpfluoroscopy confirmed good position and alignment. Retractors and distractors then reapplied at L5-S1. Once again disc was prepared discectomy performed with a pituitary. We distracted to a height of10 mm. A double barrel size 14 LT peek cage boat hand used. We reamed to 32 mm x 2. 14 x 23 LT peek c ages x 2 were threaded in the position. IntraOp fluoroscopy confirmed good position alignment. Hemostasis was confirmed. The cages at L4-5 and L5-S1 were packed with bone morphogenic protein and a collagen sponge per FDA protocol. Hemostasis was confirmed. Closure will be performed by vascular surgery dictated under separate heading. Under the same anesthesia patient was then positioned prone on the prone Myke table. Padding wasconfirmed throughout. We used preoperative antibiotics compression boots and TXA. We marked her levels with IntraOp fluoroscopy. The posterior lumbar region was prepped and draped in usual sterile fashion. Timeout was performed. Midline incision was made from L1-S1. Fascia was incised and expose the laminas from L1 to the sacrum and the transverse process at L4-L5 and the sacral ala. We identified the pedicles at the junction of the pars and transverse process. We then burred starting holes past gearshift probes palpated the inner vaughan with blunt pelter probes and used 6.5 x 40 mm Solera pedicle screws at bilateral L4 and left L5 and bilateral S1. We directly stimulated each pedicle screw and adequate spinal potentials recorded. IntraOp fluoroscopy confirmed good position and alignment. Appropriate rods and connectors were applied and tightened down. At this point we commenced our decompression with a rongeur taking out the spinous process of L1-L2 L3-L4-L5 and S1. We entered the L5-S1 interlaminar window. With a #4 Kerrison marching proximally we took off the laminas of L5 L4 L3 L2 and L1. Then decompressed into the bilateral L1-L2 L3-L4-L5 and S1 neuroforamen undercutting the facet joints and mobilizing the nerve roots bilaterally. We decorticated the transverse process facetjoints at L4-L5 and the sacral ala. We took a local bone morselized and a bone mill and packed it into the posterolateral gutters. Appropriate rods and connectors were applied and final tightened wasapplied. Valsalva maneuver was performed no CSF leak was seen. Wound was thoroughly irrigated hemostasis confirmed. Deep Hemovac drain placed. Fascia closed with Vicryl. Skin closed with Vicryl and isabel. Sponge and needle counts were correct sterile dressings were applied. He was positioned supine extubated and brought to the recovery room in stable condition. [id number]* Brief Op Note - Tosin Aguila MD - 06/19/2023 7:30 AM EST Date: 06/19/2023 Location: [facility] OR Name: Azar Triplett, : 1945, Diagnosis Pre-op Diagnosis * Spondylolisthesis, lumbosacral region [M43.17] Post-op Diagnosis * Spondylolisthesis, lumbosacral region [M43.17] Procedures ANTERIOR LUMBAR INTERBODY FUSION LUMBAR 4/5-SACRAL 1, INTERBODY DEVICE BONE MORPHOGENETIC PROTEIN, POSTERIOR FUSION LUMBAR 4/5-SACRAL 1, DECOMPRESSION LUMBAR 7-0-4-4-5-SACRAL 1, PEDICLE INSTRUMENTATION AND LOCAL BONE 06535 - [place] ARTHRD ANT INTERBODY MIN DSC LUMBAR ANTERIOR MICRODISCECTOMY AND FUSION EACH ADDITIONAL LEVEL 59271 - [place] ARTHRD ANT NTRBD MIN DSC EA ADDL INTERSPACE INSERTION OF INTERBODY BIOMECHANICAL DEVICE 15233 - [place] INSJ BIOMCHN DEV INTERVERTEBRAL DSC SPC W/ARTHRD POSTERIOR LUMBAR FUSION 41693 - [place] ARTHRODESIS POSTERIOR/PSTLAT TQ 1NTRSPC LUMBAR POSTERIOR OR POSTEROLATERAL FUSION EACH ADDITIONAL LEVEL 18758 - [place] ARTHRODESIS PST/PSTLAT TQ 1NTRSPC EA ADDL NTRSPC POSTERIOR LUMBAR LAMINECTOMY FACETECTOMY FORAMINOTOMY AND DECOMPRESSION 88787 - [place] AGUILLON FACETECTOMY & FORAMOTOMY 1 VRT SGM LUMBAR POSTERIOR CERVICAL/THORACIC/LUMBAR LAMINECTOMY FACETECTOMY FORAMINOTOMY AND DECOMPRESSION EACH ADDITIONAL 90210 - [place] AGUILLON FACETECTOMY&FORAMOT 1 VRT SGM EA ADDL SGM POSTERIOR SPINAL INSTRUMENTATION 3 TO 6 LEVELS 13289 - [place] POSTERIOR SEGMENTAL INSTRUMENTATION 3-6 VRT SEG Surgeons * Guerda Page V - Primary * Karol Pradhan - Assisting Procedure Summary Anesthesia: General ASA: III Estimated Blood Loss: 1200 mL Drains: Closed/Suction Drain Inferior Back Accordion 10 Fr. (Active) Urethral Catheter Straight-tip 16 Fr. (Active) Implants Type Name Action Serial No. Graft KIT INFUSE BONE GRAFT XL 8.0CC - [id number] Used, Not Implanted Spinal Hardware CAGE SPINE LUMBAR 14X17.5X23MM - [id number] Implanted Spinal Hardware SCREW SPINAL 6.1MEP03XK - [id number] Implanted Spinal Hardware SCREW SET TI SPINAL BREAK OFF - [id number] Implanted Spinal Hardware JDOY SPNL CROMALLOY BENT 5.5X55 - [id number] Wasted Spinal Hardware JODY SPNL CROMALLOY BENT 5.5X60 - [id number] Implanted Staff: Tutoring Clinician: Jewel Shaw RN; Conor Pinto RN Scrub Person: Allen Bowman Findings: See full op note Complications: None; patient tolerated the procedure well. Specimens Collected: Order Name Source Comment Collection Info Order Time POTASSIUM WITH MG REFLEX For patients on dialysis to draw potassium day of surgery 06/19/2023 6:13 AM PROTHROMBIN TIME If patient on coumadin within 4 days prior. 06/19/2023 6:13 AM Wound Class: Class I: Clean Blood Products: None Prophylactic Antibiotics: Procedure appropriate prophylactic antibiotic(s) given within 1 hour of surgical incision (two hours if receiving Vancomycin or flouroquinolone) Plan -Decadron 10 mg q8h x 3 doses -Baclofen 10 mg q12h prn -Ancef 2 g q8h x 24hrs -Drain I/O q shift; Pull when POD3 <20cc x consecutive shifts -Diet: advance diet as tolerated to full -No DVT ppx, SCDs and ambulation -Multimodal pain control regimen ordered -WBAT; up w/ assistance -PT/OT -No spinal precautions -NV checks q4 hrs -Ortho primary [facility] [id number] Note* Op Note - Karol Pradhan MD - 06/19/2023 7:30 AM EST OPERATIVE NOTE Azar Triplett 1945 DATE OF PROCEDURE: 06/19/2023 SURGEON: Karol Pradhan MD, Kaylee REYNOSO Procedure: Anterior lumbar spine exposure with discectomy and fusion of L4-S1 Preoperative Diagnosis: Degenerative disc disease of L4-S1 Postoperative Diagnosis: Same Anesthesia: General. Assist: Tahvilian Estimated Blood Loss: 200 cc Indications: 77-year-old white male brought to the operating room by Dr. Page for an anterior lumbar spine approach. Description of Procedure: Patient was placed in the supine position and general anesthesia was induced. Abdomen was shaved prepped and draped in the usual sterile fashion. A transverse left lower quadrant incision was made and through this incision the left rectus sheath was identified. A Z shaped incision was made in the left rectus sheath and then the left rectus muscle was retracted laterally.Using blunt dissection the retroperitoneum was dissected down to the iliac vessels and spine. The L5-S1 disc space was exposed between the iliac vessels. The middle sacral artery and vein were ligated with hemoclips and divided to facilitate the exposure. The L4-5 disc space was exposed by mobilizin g the aorta and vena cava to the right side of the spine and several lumbar branches were ligated to facilitate this exposure. Once both levels were adequately exposed Dr. Page proceeded with his portion of the case which will be dictated separately. Once he was finished the retractors were removed placing the iliac vessels and retroperitoneum back into normal position. The anterior rectus sheath was then reconstructed with 0 PDS suture followed by subcutaneous closure and skin isabel. Estimated blood loss for the procedure was 200 cc and sponge needle counts were correct at the end of the case. Karol Pradhan MD [employer] Phone: 1(284) 203-612502-20-2024 Note* Op Note - Guerda Alvarez MD - 06/19/2023 7:30 AM EST OPERATIVE NOTE Patient Name: Azar Triplett : 1945 DATE OF PROCEDURE: 06/19/2023 SURGEON: Guerda Page MD PREOPERATIVE DIAGNOSES: Spondylolisthesis, Stenosis POSTOPERATIVE DIAGNOSES: Same PROCEDURE: Anterior Lumbar Interbody Fusion L4-5-S1, LT Peek Cage, Bone Morphogenic Protein Posterior Fusion L4-5-S1, Decompression H7-9-6-4-5-S1, Solera Pedicle Instrumentation, Local Bone ANESTHESIA: General ESTIMATED BLOOD LOSS: 1000 cc INDICATION FOR PROCEDURE: Back and leg pain DESCRIPTION OF PROCEDURE: The patient is a 77-year-old gentleman who comes in with back and bilateral leg pain with claudication from severe multilevel spinal stenosis and segmental instability nonresponsive to conservative care. In the OR prior to the induction of anesthesia he was identified. After adequate of anesthesia he was positioned on the flat Myke table supine. We used preoperative antibiotics compression boots and TXA. His abdominal and pelvic region was prepped and draped in usual sterile fashion. Timeoutwas performed. The anterior exposure was performed by Dr. Karol Pradhan which will be dictated under separate heading. Dr. Pradhan gave us excellent visualization of the anterior L4-5 and L5-S1 disc spaces with radiologic markers marking her levels. We entered the 4 5 disc and with pituitaries performed a subtotal discectomy. Using sequential dilators and sizers we were able to reduce the spondylolisthesis and restore the disc height to 10 mm. Double barrel LT cage boat hand was then tamped into position. We reamed to 32 mm x 2. We inserted a size 14 x 23 threaded LT peek cages x 2. IntraOpfluoroscopy confirmed good position and alignment. Retractors and distractors then reapplied at L5-S1. Once again disc was prepared discectomy performed with a pituitary. We distracted to a height of10 mm. A double barrel size 14 LT peek cage boat hand used. We reamed to 32 mm x 2. 14 x 23 LT peek c ages x 2 were threaded in the position. IntraOp fluoroscopy confirmed good position alignment. Hemostasis was confirmed. The cages at L4-5 and L5-S1 were packed with bone morphogenic protein and a collagen sponge per FDA protocol. Hemostasis was confirmed. Closure will be performed by vascular surgery dictated under separate heading. Under the same anesthesia patient was then positioned prone on the prone Myke table. Padding wasconfirmed throughout. We used preoperative antibiotics compression boots and TXA. We marked her levels with IntraOp fluoroscopy. The posterior lumbar region was prepped and draped in usual sterile fashion. Timeout was performed. Midline incision was made from L1-S1. Fascia was incised and expose the laminas from L1 to the sacrum and the transverse process at L4-L5 and the sacral ala. We identified the pedicles at the junction of the pars and transverse process. We then burred starting holes past gearshift probes palpated the inner vaughan with blunt pelter probes and used 6.5 x 40 mm Solera pedicle screws at bilateral L4 and left L5 and bilateral S1. We directly stimulated each pedicle screw and adequate spinal potentials recorded. IntraOp fluoroscopy confirmed good position and alignment. Appropriate rods and connectors were applied and tightened down. At this point we commenced our decompression with a rongeur taking out the spinous process of L1-L2 L3-L4-L5 and S1. We entered the L5-S1 interlaminar window. With a #4 Kerrison marching proximally we took off the laminas of L5 L4 L3 L2 and L1. Then decompressed into the bilateral L1-L2 L3-L4-L5 and S1 neuroforamen undercutting the facet joints and mobilizing the nerve roots bilaterally. We decorticated the transverse process facetjoints at L4-L5 and the sacral ala. We took a local bone morselized and a bone mill and packed it into the posterolateral gutters. Appropriate rods and connectors were applied and final tightened wasapplied. Valsalva maneuver was performed no CSF leak was seen. Wound was thoroughly irrigated hemostasis confirmed. Deep Hemovac drain placed. Fascia closed with Vicryl. Skin closed with Vicryl and isabel. Sponge and needle counts were correct sterile dressings were applied. He was positioned supine extubated and brought to the recovery room in stable condition. [facility]02-20-2024 Note* Brief Op Note - Tosin Aguila MD - 06/19/2023 7:30 AM EST Date: 06/19/2023 Location: [facility] OR Name: Azar Triplett, : 1945, Diagnosis Pre-op Diagnosis * Spondylolisthesis, lumbosacral region [M43.17] Post-op Diagnosis * Spondylolisthesis, lumbosacral region [M43.17] Procedures ANTERIOR LUMBAR INTERBODY FUSION LUMBAR 4/5-SACRAL 1, INTERBODY DEVICE BONE MORPHOGENETIC PROTEIN, POSTERIOR FUSION LUMBAR 4/5-SACRAL 1, DECOMPRESSION LUMBAR 7-0-2-4-5-SACRAL 1, PEDICLE INSTRUMENTATION AND LOCAL BONE 53813 - OH ARTHRD ANT INTERBODY MIN DSC LUMBAR ANTERIOR MICRODISCECTOMY AND FUSION EACH ADDITIONAL LEVEL 73365 - [place] ARTHRD ANT NTRBD MIN DSC EA ADDL INTERSPACE INSERTION OF INTERBODY BIOMECHANICAL DEVICE 36662 - OH INSJ BIOMCHN DEV INTERVERTEBRAL DSC SPC W/ARTHRD POSTERIOR LUMBAR FUSION 87250 - [place] ARTHRODESIS POSTERIOR/PSTLAT TQ 1NTRSPC LUMBAR POSTERIOR OR POSTEROLATERAL FUSION EACH ADDITIONAL LEVEL 96663 - [place] ARTHRODESIS PST/PSTLAT TQ 1NTRSPC EA ADDL NTRSPC POSTERIOR LUMBAR LAMINECTOMY FACETECTOMY FORAMINOTOMY AND DECOMPRESSION 66365 - OH AGUILLON FACETECTOMY & FORAMOTOMY 1 VRT SGM LUMBAR POSTERIOR CERVICAL/THORACIC/LUMBAR LAMINECTOMY FACETECTOMY FORAMINOTOMY AND DECOMPRESSION EACH ADDITIONAL 10851 - [place] AGUILLON FACETECTOMY&FORAMOT 1 VRT SGM EA ADDL SGM POSTERIOR SPINAL INSTRUMENTATION 3 TO 6 LEVELS 71135 - [place] POSTERIOR SEGMENTAL INSTRUMENTATION 3-6 VRT SEG Surgeons * Guerda Page V - Primary * Karol Pradhan - Assisting Procedure Summary Anesthesia: General ASA: III Estimated Blood Loss: 1200 mL Drains: Closed/Suction Drain Inferior Back Accordion 10 Fr. (Active) Urethral Catheter Straight-tip 16 Fr. (Active) Implants Type Name Action Serial No. Graft KIT INFUSE BONE GRAFT XL 8.0CC - [id number] Used, Not Implanted Spinal Hardware CAGE SPINE LUMBAR 14X17.5X23MM - [id number] Implanted Spinal Hardware SCREW SPINAL 6.0OND68TB - [id number] Implanted Spinal Hardware SCREW SET TI SPINAL BREAK OFF - [id number] Implanted Spinal Hardware JODY SPNL CROMALLOY BENT 5.5X55 - [id number] Wasted Spinal Hardware JODY SPNL CROMALLOY BENT 5.5X60 - [id number] Implanted Staff: Tutoring Clinician: Jewel Shaw RN; Conor Pinto RN Scrub Person: Allen Edl Findings: See full op note Complications: None; patient tolerated the procedure well. Specimens Collected: Order Name Source Comment Collection Info Order Time POTASSIUM WITH MG REFLEX For patients on dialysis to draw potassium day of surgery 06/19/2023 6:13 AM PROTHROMBIN TIME If patient on coumadin within 4 days prior. 06/19/2023 6:13 AM Wound Class: Class I: Clean Blood Products: None Prophylactic Antibiotics: Procedure appropriate prophylactic antibiotic(s) given within 1 hour of surgical incision (two hours if receiving Vancomycin or flouroquinolone) Plan -Decadron 10 mg q8h x 3 doses -Baclofen 10 mg q12h prn -Ancef 2 g q8h x 24hrs -Drain I/O q shift; Pull when POD3 <20cc x consecutive shifts -Diet: advance diet as tolerated to full -No DVT ppx, SCDs and ambulation -Multimodal pain control regimen ordered -WBAT; up w/ assistance -PT/OT -No spinal precautions -NV checks q4 hrs -[id number] NotePatient: Azar Triplett Procedure Information Date/Time: 06/19/23 0730 Procedures: ANTERIOR LUMBAR INTERBODY FUSION LUMBAR 4/5-SACRAL 1, INTERBODY DEVICE BONE MORPHOGENETIC PROTEIN, POSTERIOR FUSION LUMBAR 4/5-SACRAL 1, DECOMPRESSION LUMBAR 9-7-9-4-5-SACRAL 1, PEDICLE INSTRUMENTATION AND LOCAL BONE (Back) ANTERIOR MICRODISCECTOMY AND FUSION EACH ADDITIONAL LEVEL (Back) INSERTION OF INTERBODY BIOMECHANICAL DEVICE (Back) POSTERIOR LUMBAR FUSION (Back) POSTERIOR OR POSTEROLATERAL FUSION EACH ADDITIONAL LEVEL (Back) POSTERIOR LUMBAR LAMINECTOMY FACETECTOMY FORAMINOTOMY AND DECOMPRESSION (Spine Lumbar) POSTERIOR CERVICAL/THORACIC/LUMBAR LAMINECTOMY FACETECTOMY FORAMINOTOMY AND DECOMPRESSION EACH ADDITIONAL (Back) POSTERIOR SPINAL INSTRUMENTATION 3 TO 6 LEVELS (Back) Location: [facility] OR [address] [place] [address] Operating Room Surgeons: Guerda Alvarez MD Past Medical History: Past Medical History: No date: Abnormal EKG No date: Back pain Comment: recent steroid [id number] No date: Cardiac murmur Comment: echo 06-14-23 EF 40-45%, moderate to severe aortic valve stenosis No date: Diabetes (HCC) No date: Hypertension No date: PVC's (premature ventricular contractions) Past Surgical History: Past Surgical History: No date: ACHILLES TENDON SURGERY No date: APPENDECTOMY 2006: BACK SURGERY Comment: herniated disc No date: HERNIA REPAIR; Left No date: TOTAL KNEE ARTHROPLASTY; Right No date: WISDOM TOOTH EXTRACTION Social History: TOBACCO: reports that he has never smoked. He has never used smokeless tobacco. ETOH: reports current alcohol use of about 2.0 standard drinks of alcohol per week. Social History Substance and Sexual Activity Drug Use Never Family History: No family history on file. Screening: unknown Clinical information reviewed: Tobacco Allergies Meds Med Hx Surg Hx Fam Hx Soc Hx Physical Exam Airway Mallampati: III TM distance: >3 FB Neck ROM: full Mouth Open: normalendotracheal tube not in place Cardiovascular Dental (+) Upper Dentures, Missing Pulmonary Abdominal Anesthesia Plan patient is NPO appropriate Any family history or previous problems with anesthesia no ASA 3 general and regional Any family history or previous problems with anesthesia no The patient is not a current smoker. Anesthetic plan and risks discussed with patient. Anesthesia Davis Considerations EKG in media tab 06/18/2023 Cardiac clearance in media tab 05/2023 Recent Echo shows LV 45% ejection fraction and mod-severe Aortic Stenosis. Will use art line. /TAP block. Blood Glucose Insulin Sliding Scale: low ERAS Type General ERAS JACK Screening Labs: No results found for: WBC, HGB, HCT, MCV, PLT No results found for: NA, K, CL, CO2, BUN, CREATININE, GLUCOSE, CALCIUM, PROT, BILIRUBINFL, ALKPHOS, AST, ALT, EGFR, GLOB No echocardiogram results found for the past 14 days No results found for this or any previous visit.[facility] 06-18-2023 NoteComprehensive Pre Surgical History and Physical Name: Azar Triplett : 1945 (Age-77 y.o.) Date of Service: Pt seen/examined on 06/18/2023 Procedure Information Date/Time: 06/19/23 0730 Procedures: ANTERIOR LUMBAR INTERBODY FUSION LUMBAR 4/5-SACRAL 1, INTERBODY DEVICE BONE MORPHOGENETIC PROTEIN, POSTERIOR FUSION LUMBAR 4/5-SACRAL 1, DECOMPRESSION LUMBAR 3-5-4-4-5-SACRAL 1, PEDICLE INSTRUMENTATION AND LOCAL BONE (Back) ANTERIOR MICRODISCECTOMY AND FUSION EACH ADDITIONAL LEVEL (Back) INSERTION OF INTERBODY BIOMECHANICAL DEVICE (Back) POSTERIOR LUMBAR FUSION (Back) POSTERIOR OR POSTEROLATERAL FUSION EACH ADDITIONAL LEVEL (Back) POSTERIOR LUMBAR LAMINECTOMY FACETECTOMY FORAMINOTOMY AND DECOMPRESSION (Spine Lumbar) POSTERIOR CERVICAL/THORACIC/LUMBAR LAMINECTOMY FACETECTOMY FORAMINOTOMY AND DECOMPRESSION EACH ADDITIONAL (Back) POSTERIOR SPINAL INSTRUMENTATION 3 TO 6 LEVELS (Back) Location: [facility] OR [address] [place] [address] Operating Room Surgeons: Guerda Alvarez MD Chief Complaint: Spondylolisthesis, lumbosacral region [M43.17] ASSESSMENT/PLAN: Patient is considered intermediate risk for this intermediate level 3 risk procedure/surgery. Surgery is tomorrow 06/19/23. 1) Spondylolisthesis, lumbosacral region [M43.17] - Managed per surgery - EKG and labs reviewed, hard copy placed onto patient's chart (Vit D low at 22, potassium low at 3.0, A1c 8.2%, WBC 11.5, urine cx WNL) - Ordered per surgeon - CBC, CMP, T&S - CHG shower kit - Pain consult ordered 2) Aortic valve stenosis - 06/14/23 echo Echo: today EF 40-45% and moderate-severe - 05/2023 Cardiac clearance 3) HTN - Amlodipine, hydrochlorothiazide, lisinopril BP Readings from Last 3 Encounters: 06/18/23 (!) 151/100 4) NIDDM - Amaryl - 06/05/23 A1c 8.2% - BS less than 250 DOS per PAT Protocol 5) Hypokalemia - Continue supplementation - 06/05/23 potassium 3.0 - Rechecking BMP today Visit Type: Pre-Admission Testing Visit Labs Ordered: As ordered by surgeon Sleep Referral Ordered: NO - patient declined referral Total time spent (which include face to face and non face to face encounters) : 40 minutes Toxic drug monitoring/narrow therapeutic index drug monitoring : # Drug name : hydrochlorothiazide, lisinopril, amaryl # Route administered : oral # Method of monitoring : n/a - ordered by surgeon PAT Protocol referenced includes: 1. Anesthesia Lab Protocol Orders 2. Perioperative Cardiovascular Risk Assessment 3. Anesthesia Assessment 4. Pain Assessment and Acute Pain Service Consult (if appropriate) 5. Medical Clearance/Consult from Internal Medicine (IMS) 6. Shower/Wash Order (for designated surgeries) 7. JACK Screen and Sleep Clinic Referral (if appropriate) History Of Present Illness: 77 y.o. male who we are asked to see/evaluate by Dr. Page for pre-operative evaluation prior to the above procedure. ? Denies history of AZ, CAD, TIA, CVA Past Medical History: Past Medical History: No date: Abnormal EKG No date: Back pain Comment: recent steroid [id number] No date: Cardiac murmur Comment: echo 06-14-23 EF 40-45%, moderate to severe aortic valve stenosis No date: Diabetes (HCC) No date: Hypertension No date: PVC's (premature ventricular contractions) Past Surgical History: Past Surgical History: No date: ACHILLES TENDON SURGERY No date: APPENDECTOMY 2006: BACK SURGERY Comment: herniated disc No date: HERNIA REPAIR; Left No date: TOTAL KNEE ARTHROPLASTY; Right No date: WISDOM TOOTH EXTRACTION Medications Prior to Admission: Prior to Admission medications Medication Sig Start Date End Date Taking? Authorizing Provider amLODIPine (Norvasc) 10 MG tablet Take 10 mg by mouth in the morning. Yes Historical Provider, glimepiride (Amaryl) 4 MG tablet Take 4 mg by mouth in the morning. 03/13/23 Yes Historical Provider, hydroCHLOROthiazide (Microzide) 12.5 MG capsule Take 12.5 mg by mouth every morning. Yes Historical Provider, lisinopril 20 MG tablet Take 20 mg by mouth daily. Yes Historical Provider, CHRONIC NARCOTIC USE: No Allergies: Patient has no known allergies. If patient has opioid allergy, is it okay to take Acetaminophen: Yes Social History: TOBACCO: reports that he has never smoked. He has never used smokeless tobacco. ETOH: reports current alcohol use of about 2.0 standard drinks of alcohol per week. Social History Substance and Sexual Activity Drug Use Never Family History: No family history on file. REVIEW OF SYSTEMS: Review of Systems Constitutional: Negative for chills, fatigue and fever. HENT: Negative for congestion. Respiratory: Negative for cough, chest tightness and shortness of breath. Cardiovascular: Negative for chest pain, palpitations and leg swelling. Gastrointestinal: Negative for nausea and vomiti (more content not included)... [facility]02-19-2024 NoteComprehensive Pre Surgical History and Physical Name: Azar Triplett : 1945 (Age-77 y.o.) Date of Service: Pt seen/examined on 06/18/2023 Procedure Information Date/Time: 06/19/23 4470 Procedures: ANTERIOR LUMBAR INTERBODY FUSION LUMBAR 4/5-SACRAL 1, INTERBODY DEVICE BONE MORPHOGENETIC PROTEIN, POSTERIOR FUSION LUMBAR 4/5-SACRAL 1, DECOMPRESSION LUMBAR 3-1-4-4-5-SACRAL 1, PEDICLE INSTRUMENTATION AND LOCAL BONE (Back) ANTERIOR MICRODISCECTOMY AND FUSION EACH ADDITIONAL LEVEL (Back) INSERTION OF INTERBODY BIOMECHANICAL DEVICE (Back) POSTERIOR LUMBAR FUSION (Back) POSTERIOR OR POSTEROLATERAL FUSION EACH ADDITIONAL LEVEL (Back) POSTERIOR LUMBAR LAMINECTOMY FACETECTOMY FORAMINOTOMY AND DECOMPRESSION (Spine Lumbar) POSTERIOR CERVICAL/THORACIC/LUMBAR LAMINECTOMY FACETECTOMY FORAMINOTOMY AND DECOMPRESSION EACH ADDITIONAL (Back) POSTERIOR SPINAL INSTRUMENTATION 3 TO 6 LEVELS (Back) Location: [facility] OR [address] [place] [address] Operating Room Surgeons: Guerda Alvarez MD Chief Complaint: Spondylolisthesis, lumbosacral region [M43.17] ASSESSMENT/PLAN: Patient is considered intermediate risk for this intermediate level 3 risk procedure/surgery. Surgery is tomorrow 06/19/23. 1) Spondylolisthesis, lumbosacral region [M43.17] - Managed per surgery - EKG and labs reviewed, hard copy placed onto patient's chart (Vit D low at 22, potassium low at 3.0, A1c 8.2%, WBC 11.5, urine cx WNL) - Ordered per surgeon - CBC, CMP, T&S - CHG shower kit - Pain consult ordered 2) Aortic valve stenosis - 06/14/23 echo Echo: today EF 40-45% and moderate-severe - 05/2023 Cardiac clearance 3) HTN - Amlodipine, hydrochlorothiazide, lisinopril BP Readings from Last 3 Encounters: 06/18/23 (!) 151/100 4) NIDDM - Amaryl - 06/05/23 A1c 8.2% - BS less than 250 DOS per PAT Protocol 5) Hypokalemia - Continue supplementation - 06/05/23 potassium 3.0 - Rechecking BMP today Visit Type: Pre-Admission Testing Visit Labs Ordered: As ordered by surgeon Sleep Referral Ordered: NO - patient declined referral Total time spent (which include face to face and non face to face encounters) : 40 minutes Toxic drug monitoring/narrow therapeutic index drug monitoring : # Drug name : hydrochlorothiazide, lisinopril, amaryl # Route administered : oral # Method of monitoring : n/a - ordered by surgeon PAT Protocol referenced includes: 1. Anesthesia Lab Protocol Orders 2. Perioperative Cardiovascular Risk Assessment 3. Anesthesia Assessment 4. Pain Assessment and Acute Pain Service Consult (if appropriate) 5. Medical Clearance/Consult from Internal Medicine (IMS) 6. Shower/Wash Order (for designated surgeries) 7. JACK Screen and Sleep Clinic Referral (if appropriate) History Of Present Illness: 77 y.o. male who we are asked to see/evaluate by Dr. Page for pre-operative evaluation prior to the above procedure. ? Denies history of AZ, CAD, TIA, CVA Past Medical History: Past Medical History: No date: Abnormal EKG No date: Back pain Comment: recent steroid [id number] No date: Cardiac murmur Comment: echo 06-14-23 EF 40-45%, moderate to severe aortic valve stenosis No date: Diabetes (HCC) No date: Hypertension No date: PVC's (premature ventricular contractions) Past Surgical History: Past Surgical History: No date: ACHILLES TENDON SURGERY No date: APPENDECTOMY 2006: BACK SURGERY Comment: herniated disc No date: HERNIA REPAIR; Left No date: TOTAL KNEE ARTHROPLASTY; Right No date: WISDOM TOOTH EXTRACTION Medications Prior to Admission: Prior to Admission medications Medication Sig Start Date End Date Taking? Authorizing Provider amLODIPine (Norvasc) 10 MG tablet Take 10 mg by mouth in the morning. Yes Historical Provider, glimepiride (Amaryl) 4 MG tablet Take 4 mg by mouth in the morning. 03/13/23 Yes Historical Provider, hydroCHLOROthiazide (Microzide) 12.5 MG capsule Take 12.5 mg by mouth every morning. Yes Historical Provider, lisinopril 20 MG tablet Take 20 mg by mouth daily. Yes Historical Provider, CHRONIC NARCOTIC USE: No Allergies: Patient has no known allergies. If patient has opioid allergy, is it okay to take Acetaminophen: Yes Social History: TOBACCO: reports that he has never smoked. He has never used smokeless tobacco. ETOH: reports current alcohol use of about 2.0 standard drinks of alcohol per week. Social History Substance and Sexual Activity Drug Use Never Family History: No family history on file. REVIEW OF SYSTEMS: Review of Systems Constitutional: Negative for chills, fatigue and fever. HENT: Negative for congestion. Respiratory: Negative for cough, chest tightness and shortness of breath. Cardiovascular: Negative for chest pain, palpitations and leg swelling. Gastrointestinal: Negative for nausea and vomiti (more content not included)... [facility]02-19-2024 History and physical note* MANDY Bonner - 06/18/2023 4:30 PM EST Images from the original note were not included. Comprehensive Pre Surgical History and Physical Name: Azar Triplett : 1945 (Age-77 y.o.) Date of Service: Pt seen/examined on 06/18/2023 Procedure Information Date/Time: 06/19/23 1730 Procedures: ANTERIOR LUMBAR INTERBODY FUSION LUMBAR 4/5-SACRAL 1, INTERBODY DEVICE BONE MORPHOGENETIC PROTEIN, POSTERIOR FUSION LUMBAR 4/5-SACRAL 1, DECOMPRESSION LUMBAR 7-1-8-4-5-SACRAL 1, PEDICLE INSTRUMENTATION AND LOCAL BONE (Back) ANTERIOR MICRODISCECTOMY AND FUSION EACH ADDITIONAL LEVEL (Back) INSERTION OF INTERBODY BIOMECHANICAL DEVICE (Back) POSTERIOR LUMBAR FUSION (Back) POSTERIOR OR POSTEROLATERAL FUSION EACH ADDITIONAL LEVEL (Back) POSTERIOR LUMBAR LAMINECTOMY FACETECTOMY FORAMINOTOMY AND DECOMPRESSION (Spine Lumbar) POSTERIOR CERVICAL/THORACIC/LUMBAR LAMINECTOMY FACETECTOMY FORAMINOTOMY AND DECOMPRESSION EACH ADDITIONAL (Back) POSTERIOR SPINAL INSTRUMENTATION 3 TO 6 LEVELS (Back) Location: [facility] OR Operating Room Surgeons: Guerda Alvarez MD Chief Complaint: Spondylolisthesis, lumbosacral region [M43.17] ASSESSMENT/PLAN: Patient is considered intermediate risk for this intermediate level 3 risk procedure/surgery. Surgery is tomorrow 06/19/23. 1) Spondylolisthesis, lumbosacral region [M43.17] - Managed per surgery - EKG and labs reviewed, hard copy placed onto patient's chart (Vit D low at 22, potassium low at 3.0, A1c 8.2%, WBC 11.5, urine cx WNL) - Ordered per surgeon - CBC, CMP, T&S - CHG shower kit - Pain consult ordered 2) Aortic valve stenosis - 06/14/23 echo Echo: today EF 40-45% and moderate-severe - 05/2023 Cardiac clearance 3) HTN - Amlodipine, hydrochlorothiazide, lisinopril BP Readings from Last 3 Encounters: 06/18/23 (!) 151/100 4) NIDDM - Amaryl - 06/05/23 A1c 8.2% - BS less than 250 DOS per PAT Protocol 5) Hypokalemia - Continue supplementation - 06/05/23 potassium 3.0 - Rechecking BMP today Visit Type: Pre-Admission Testing Visit Labs Ordered: As ordered by surgeon Sleep Referral Ordered: NO - patient declined referral Total time spent (which include face to face and non face to face encounters) : 40 minutes Toxic drug monitoring/narrow therapeutic index drug monitoring : # Drug name : hydrochlorothiazide, lisinopril, amaryl # Route administered : oral # Method of monitoring : n/a - ordered by surgeon PAT Protocol referenced includes: 1. Anesthesia Lab Protocol Orders 2. Perioperative Cardiovascular Risk Assessment 3. Anesthesia Assessment 4. Pain Assessment and Acute Pain Service Consult (if appropriate) 5. Medical Clearance/Consult from Internal Medicine (IMS) 6. Shower/Wash Order (for designated surgeries) 7. JACK Screen and Sleep Clinic Referral (if appropriate) History Of Present Illness: 77 y.o. male who we are asked to see/evaluate by Dr. Page for pre-operative evaluation prior to the above procedure. ? Denies history of AZ, CAD, TIA, CVA Past Medical History: Past Medical History: No date: Abnormal EKG No date: Back pain Comment: recent steroid [id number] No date: Cardiac murmur Comment: echo 06-14-23 EF 40-45%, moderate to severe aortic valve stenosis No date: Diabetes (HCC) No date: Hypertension No date: PVC's (premature ventricular contractions) Past Surgical History: Past Surgical History: No date: ACHILLES TENDON SURGERY No date: APPENDECTOMY 2006: BACK SURGERY Comment: herniated disc No date: HERNIA REPAIR; Left No date: TOTAL KNEE ARTHROPLASTY; Right No date: WISDOM TOOTH EXTRACTION Medications Prior to Admission: Prior to Admission medications Medication Sig Start Date End Date Taking? Authorizing Provider amLODIPine (Norvasc) 10 MG tablet Take 10 mg by mouth in the morning. Yes Historical Provider, glimepiride (Amaryl) 4 MG tablet Take 4 mg by mouth in the morning. 03/13/23 Yes Historical Provider, hydroCHLOROthiazide (Microzide) 12.5 MG capsule Take 12.5 mg by mouth every morning. Yes HistoricalProvider, lisinopril 20 MG tablet Take 20 mg by mouth daily. Yes Historical Provider, CHRONIC NARCOTIC USE: No Allergies: Patient has no known allergies. If patient has opioid allergy, is it okay to take Acetaminophen: Yes Social History: TOBACCO: reports that he has never smoked. He has never used smokeless tobacco. ETOH: reports current alcohol use of about 2.0 standard drinks of alcohol per week. Social History Substance and Sexual Activity Drug Use Never Family History: No family history on file. REVIEW OF SYSTEMS: Review of Systems Constitutional: Negative for chills, fatigue and fever. HENT: Negative for congestion. Respiratory: Negative for cough, chest tightness and shortness of breath. Cardiovascular: Negative for chest pain, palpitations and leg swelling. Gastrointestinal: Negative for nausea and vomiting. Skin: Negative for rash and wound. Neurological: Negative for weakness and headaches. Psychiatric/Behavioral: Negative for agitation. Physical Exam: Physical Exam Constitutional: Appearance: Normal appearance. HENT: Head: Normocephalic and atraumatic. Nose: Nose normal. Eyes: Extraocular Movements: Extraocular movements intact. Cardiovascular: Rate and Rhythm: Normal rate and regular rhythm. Heart sounds: Murmur heard. Pulmonary: Effort: Pulmonary effort is normal. Breath sounds: Normal breath sounds. Musculoskeletal: General: Normal range of motion. Cervical back: Neck supple. Skin: General: Skin is warm and dry. Neurological: General: No focal deficit present. Mental Status: He is alert. Psychiatric: Mood and Affect: Mood normal. Behavior: Behavior normal. Vitals: Vitals Value Taken Time BP 151/100 06/18/23 1634 Temp 37.1 C (98.7 F) 06/18/23 1634 Pulse 94 06/18/23 1634 Resp 20 06/18/23 1627 SpO2 97 % 06/18/23 1634 Labs: No results found for: WBC, HGB, HCT, MCV, PLT No results found for: NA, K, CL, CO2, BUN, CREATININE, GLUCOSE, CALCIUM, PROT, BILIRUBINFL, ALKPHOS, AST, ALT, EGFR, GLOB Nick's Simple Cardiac Risk Index: NICK'S SIMPLE CARDIAC RISK SCORE: 1 Interpretation: 0 Points Class I 0.5% 1 Point Class II 1.3% 2 Points Class III 3.6% 3+ Points Class IV 9.1% PAT Pain Score: Postop Pain Management Plan (Pain consult ordered?): PACU PAIN CONSULT ORDERED ? EK06/05/23 ECHO and EF:Echo per 06/14/23 cardiology note Echo: today EF 40-45% and moderate-severe METS >4 Electronically signed by: MANDY Bonner Date: 06/18/2023 at 5:20 PM [id number] History and physical note* MANDY Bonner - 06/18/2023 4:30 PM EST Images from the original note were not included. Comprehensive Pre Surgical History and Physical Name: Azar Triplett : 1945 (Age-77 y.o.) Date of Service: Pt seen/examined on 06/18/2023 Procedure Information Date/Time: 06/19/23 0730 Procedures: ANTERIOR LUMBAR INTERBODY FUSION LUMBAR 4/5-SACRAL 1, INTERBODY DEVICE BONE MORPHOGENETIC PROTEIN, POSTERIOR FUSION LUMBAR 4/5-SACRAL 1, DECOMPRESSION LUMBAR 0-4-2-4-5-SACRAL 1, PEDICLE INSTRUMENTATION AND LOCAL BONE (Back) ANTERIOR MICRODISCECTOMY AND FUSION EACH ADDITIONAL LEVEL (Back) INSERTION OF INTERBODY BIOMECHANICAL DEVICE (Back) POSTERIOR LUMBAR FUSION (Back) POSTERIOR OR POSTEROLATERAL FUSION EACH ADDITIONAL LEVEL (Back) POSTERIOR LUMBAR LAMINECTOMY FACETECTOMY FORAMINOTOMY AND DECOMPRESSION (Spine Lumbar) POSTERIOR CERVICAL/THORACIC/LUMBAR LAMINECTOMY FACETECTOMY FORAMINOTOMY AND DECOMPRESSION EACH ADDITIONAL (Back) POSTERIOR SPINAL INSTRUMENTATION 3 TO 6 LEVELS (Back) Location: [facility] OR [address] [place] [address] Operating Room Surgeons: Guerda Alvarez MD Chief Complaint: Spondylolisthesis, lumbosacral region [M43.17] ASSESSMENT/PLAN: Patient is considered intermediate risk for this intermediate level 3 risk procedure/surgery. Surgery is tomorrow 06/19/23. 1) Spondylolisthesis, lumbosacral region [M43.17] - Managed per surgery - EKG and labs reviewed, hard copy placed onto patient's chart (Vit D low at 22, potassium low at 3.0, A1c 8.2%, WBC 11.5, urine cx WNL) - Ordered per surgeon - CBC, CMP, T&S - CHG shower kit - Pain consult ordered 2) Aortic valve stenosis - 06/14/23 echo Echo: today EF 40-45% and moderate-severe - 05/2023 Cardiac clearance 3) HTN - Amlodipine, hydrochlorothiazide, lisinopril BP Readings from Last 3 Encounters: 06/18/23 (!) 151/100 4) NIDDM - Amaryl - 06/05/23 A1c 8.2% - BS less than 250 DOS per PAT Protocol 5) Hypokalemia - Continue supplementation - 06/05/23 potassium 3.0 - Rechecking BMP today Visit Type: Pre-Admission Testing Visit Labs Ordered: As ordered by surgeon Sleep Referral Ordered: NO - patient declined referral Total time spent (which include face to face and non face to face encounters) : 40 minutes Toxic drug monitoring/narrow therapeutic index drug monitoring : # Drug name : hydrochlorothiazide, lisinopril, amaryl # Route administered : oral # Method of monitoring : n/a - ordered by surgeon PAT Protocol referenced includes: 1. Anesthesia Lab Protocol Orders 2. Perioperative Cardiovascular Risk Assessment 3. Anesthesia Assessment 4. Pain Assessment and Acute Pain Service Consult (if appropriate) 5. Medical Clearance/Consult from Internal Medicine (IMS) 6. Shower/Wash Order (for designated surgeries) 7. JACK Screen and Sleep Clinic Referral (if appropriate) History Of Present Illness: 77 y.o. male who we are asked to see/evaluate by Dr. Page for pre-operative evaluation prior to the above procedure. ? Denies history of AZ, CAD, TIA, CVA Past Medical History: Past Medical History: No date: Abnormal EKG No date: Back pain Comment: recent steroid [id number] No date: Cardiac murmur Comment: echo 06-14-23 EF 40-45%, moderate to severe aortic valve stenosis No date: Diabetes (HCC) No date: Hypertension No date: PVC's (premature ventricular contractions) Past Surgical History: Past Surgical History: No date: ACHILLES TENDON SURGERY No date: APPENDECTOMY 2006: BACK SURGERY Comment: herniated disc No date: HERNIA REPAIR; Left No date: TOTAL KNEE ARTHROPLASTY; Right No date: WISDOM TOOTH EXTRACTION Medications Prior to Admission: Prior to Admission medications Medication Sig Start Date End Date Taking? Authorizing Provider amLODIPine (Norvasc) 10 MG tablet Take 10 mg by mouth in the morning. Yes Historical Provider, glimepiride (Amaryl) 4 MG tablet Take 4 mg by mouth in the morning. 03/13/23 Yes Historical Provider, hydroCHLOROthiazide (Microzide) 12.5 MG capsule Take 12.5 mg by mouth every morning. Yes HistoricalProviderMD lisinopril 20 MG tablet Take 20 mg by mouth daily. Yes Historical Provider, CHRONIC NARCOTIC USE: No Allergies: Patient has no known allergies. If patient has opioid allergy, is it okay to take Acetaminophen: Yes Social History: TOBACCO: reports that he has never smoked. He has never used smokeless tobacco. ETOH: reports current alcohol use of about 2.0 standard drinks of alcohol per week. Social History Substance and Sexual Activity Drug Use Never Family History: No family history on file. REVIEW OF SYSTEMS: Review of Systems Constitutional: Negative for chills, fatigue and fever. HENT: Negative for congestion. Respiratory: Negative for cough, chest tightness and shortness of breath. Cardiovascular: Negative for chest pain, palpitations and leg swelling. Gastrointestinal: Negative for nausea and vomiting. Skin: Negative for rash and wound. Neurological: Negative for weakness and headaches. Psychiatric/Behavioral: Negative for agitation. Physical Exam: Physical Exam Constitutional: Appearance: Normal appearance. HENT: Head: Normocephalic and atraumatic. Nose: Nose normal. Eyes: Extraocular Movements: Extraocular movements intact. Cardiovascular: Rate and Rhythm: Normal rate and regular rhythm. Heart sounds: Murmur heard. Pulmonary: Effort: Pulmonary effort is normal. Breath sounds: Normal breath sounds. Musculoskeletal: General: Normal range of motion. Cervical back: Neck supple. Skin: General: Skin is warm and dry. Neurological: General: No focal deficit present. Mental Status: He is alert. Psychiatric: Mood and Affect: Mood normal. Behavior: Behavior normal. Vitals: Vitals Value Taken Time BP 151/100 06/18/23 1634 Temp 37.1 C (98.7 F) 06/18/23 1634 Pulse 94 06/18/23 1634 Resp 20 06/18/23 1627 SpO2 97 % 06/18/23 1634 Labs: No results found for: WBC, HGB, HCT, MCV, PLT No results found for: NA, K, CL, CO2, BUN, CREATININE, GLUCOSE, CALCIUM, PROT, BILIRUBINFL, ALKPHOS, AST, ALT, EGFR, GLOB Nick's Simple Cardiac Risk Index: NICK'S SIMPLE CARDIAC RISK SCORE: 1 Interpretation: 0 Points Class I 0.5% 1 Point Class II 1.3% 2 Points Class III 3.6% 3+ Points Class IV 9.1% PAT Pain Score: Postop Pain Management Plan (Pain consult ordered?): PACU PAIN CONSULT ORDERED ? EK06/05/23 ECHO and EF:Echo per 06/14/23 cardiology note Echo: today EF 40-45% and moderate-severe METS >4 Electronically signed by: MANDY Bonner Date: 06/18/2023 at 5:20 PM documented in this [facility]02-16-2024 Telephone encounter Note* Telephone Encounter - Wendy Mariee MA - 06/15/2023 9:01 AM EST FYI-Per Dr. Page's office this case has been changed to be done at [facility] on 06/19/23. Start time will be at 7:30 am but you can come after your meeting that morning. [id number] Miscellaneous Notes* Telephone Encounter - Wendy Mariee MA - 06/15/2023 9:01 AM EST FYI-Per Dr. Page's office this case has been changed to be done at [facility] on 06/19/23. Start time will be at 7:30 am but you can come after your meeting that morning. * Telephone Encounter - Wendy Mariee MA - 05/29/2023 9:23 AM EST No auth needed. * Telephone Encounter - Wendy Mariee MA - 04/24/2023 8:06 AM EST SURGERY: CCOC FOR DR. PAGE OPEN & CLOSE AL[place] L4-5-S1 DATE OF SURGERY: 06/19/2023 AT 9:00 AM AUTH #: [facility] PER JULY WITH DR. PAGE'S OFFICE. documented in this [facility]02-15-2024 History of Present illness Narrative* Luis Donahue MD - 06/14/2023 10:10 AM EST Chief Complaint: Pre-op Clearance History of Present Illness Azar Triplett is a 77 y.o. male presenting with pre-operative cardiac evaluation before planned spine surgery next weel with Dr. Page. The patient has no prior history of coronary artery disease, myocardial infarction, PCI (stent), CABG, heart failure, high-grade arrhythmias, pulmonary hypertension, peripheral arterial disease, or cerebrovascular disease. The patient has no personal or family history of anesthetic complications during prior general anesthesia. The patient has no history of DVT or PE. 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 Biked yesterday 8 miles. Based upon the patient's present history, while ambulation is limited due to joint pain, their functional capacity is greater than 4 METS. Patients ability to expend ?4 METs can be assessed by estimates from activities of daily living; activities that expend ?4 METS include the ability to climb up a flight of stairs, walk up a hill, walk at ground level at 4 miles per hour, or perform heavy work around the house. The patient denies chest pain or dyspnea on exertion. The patient has no history of obstructive sleep apnea, alcohol abuse use, or tobacco use. Pre-op laboratory studies were N/A. . Previous History Past Medical History: He has a past medical history of Abnormal EKG (06/14/2023), Diabetes mellitus type II, non insulin dependent (CMS/HCC) (06/14/2023), Essential hypertension (06/14/2023), Preoperative cardiovascular examination (06/14/2023), and PVC (premature ventricular contraction) (06/14/2023). Past Surgical History: He has no past surgical history on file. Social History: He reports that he has never smoked. He has never used smokeless tobacco. He reports current alcohol use of about 2.0 standard drinks of alcohol per week. He reports that he does not use drugs. Family History: No family history on file. Allergies: Patient has no known allergies. Outpatient Medications: Current Outpatient Medications Medication Instructions amLODIPine (NORVASC) 10 mg, oral, Daily glimepiride (AMARYL) 4 mg, oral, Daily, Take with food. hydroCHLOROthiazide (Microzide) 12.5 mg capsule TAKE 1 CAPSULE BY MOUTH ONCE DAILY FOR 90 DAYS lisinopril 20 mg tablet TAKE 1 TABLET BY MOUTH DAILY 90d Physical Examination Vitals: Visit Vitals BP (!) 178/95 Pulse 83 Temp 36.4 C (97.5 F) Ht 1.651 m (5' 5) Wt 81.3 kg (179 lb 4.8 oz) BMI 29.84 kg/m Smoking Status Never BSA 1.93 m Physical Exam Vitals reviewed. Constitutional: General: He is not in acute distress. Appearance: Normal appearance. HENT: Head: Normocephalic and atraumatic. Nose: Nose normal. Eyes: Conjunctiva/sclera: Conjunctivae normal. Cardiovascular: Rate and Rhythm: Normal rate and regular rhythm. Pulses: Normal pulses. Heart sounds: Murmur heard. Systolic murmur is present with a grade of 2/6. Pulmonary: Effort: Pulmonary effort is normal. No respiratory distress. Breath sounds: Normal breath sounds. No wheezing, rhonchi or rales. Abdominal: General: Bowel sounds are normal. There is no distension. Palpations: Abdomen is soft. Tenderness: There is no abdominal tenderness. Musculoskeletal: General: No swelling. Right lower leg: No edema. Left lower leg: No edema. Skin: General: Skin is warm and dry. Capillary Refill: Capillary refill takes less than 2 seconds. Neurological: General: No focal deficit present. Mental Status: He is alert. Psychiatric: Mood and Affect: Mood normal. Labs/Imaging/Cardiac Studies Last Labs: CBC - No results found for: WBC, HGB, HCT, MCV, PLT CMP - No results found for: CALCIUM, PHOS, PROT, ALBUMIN, AST, ALT, ALKPHOS, BILITOT LIPID PANEL - No results found for: CHOL, HDL, CHHDL, LDL, VLDL, TRIG, NHDL RENAL FUNCTION PANEL - No results found for: GLU, K, CHLOR, PHOS Lab Results Component Value Date HGBA1C 7.0 (H) 02/05/2020 ECG: Echo: today EF 40-45% and moderate-severe No echocardiogram results found for the past 12 months Assessment and Recommendations Assessment/Plan 1. PVC (premature ventricular contraction) None today. Had frequent PVC's on ECG pre-op. 2. Preoperative cardiovascular examination Pre-operative cardiac evaluation: He has an EF 40-45% on Echo today with moderate-severe stenosis but has a high functional capacity and is ASX. Based upon the above evaluation and The 2014 [place] [employer]/[place] [employer] Association (ACC/AHA) Guideline on Perioperative CardiovascularEvaluation and Management for noncardiac surgery, and calculation of the Revised Cardiac Risk Index(RCRI) score, the patient is at intermediate risk for an adverse cardiovascular event (ie, myocardial ischemia, myocardial infarction [AZ], heart failure, arrhythmia, stroke, or cardiac ) for planned intermediate risk surgery. No further cardiac testing is advised. Will further Rx his LV dysfun ction and aortic stenosis post-op. 3. Essential hypertension Not well controlled today. I do not wish to add meds this close to surgery. 4. Diabetes mellitus type II, non insulin dependent (CMS/HCC) Longstanding DM x 8 years. 5. Abnormal EKG As above. Luis Donahue MD Exclusive of any other services or procedures performed, I, Luis Donahue MD , spent 30 minutes in duration for this visit today. This time consisted of chart review, obtaining history, and/or performing the exam as documented above as well as documenting the clinical information for the encounter in the electronic record, discussing treatment options, plans, and/or goals with patient, family, and/or caregiver, refilling medications, updating the electronic record, ordering medicines, lab work,imaging, referrals, and/or procedures as documented above and communicating with other [facility] professionals. I have discussed the results of laboratory, radiology, and cardiology studies with the patient and their family/caregiver. [facility] Work Phone: [phone] 607-570301-30-2024 Telephone encounter Note* Telephone Encounter - Wendy Mariee MA - 05/29/2023 9:23 AM EST No auth needed. [id number] Miscellaneous Notes* Telephone Encounter - Wendy Mariee MA - 05/29/2023 9:23 AM EST No auth needed. * Telephone Encounter - Wendy Mariee MA - 04/24/2023 8:06 AM EST SURGERY: CCOC FOR DR. PAGE OPEN & CLOSE [place] L4-5-S1 DATE OF SURGERY: 06/19/2023 AT 9:00 AM AUTH #: [facility] PER JULY WITH DR. PAGE'S OFFICE. documented in this encounterSPremier [id number] Telephone encounter Note* Telephone Encounter - Wendy Mariee MA - 04/24/2023 8:06 AM EST SURGERY: CCOC FOR DR. PAGE OPEN & CLOSE [place] L4-5-S1 DATE OF SURGERY: 06/19/2023 AT 9:00 AM AUTH #: [facility] PER JULY WITH DR. PAGE'S OFFICE. [id number] Evaluation + Plan note Future Scheduled Tests Radiology* MRI Spine Lumbar w/ + w/o Contrast 03/29/23 [facility] 04-17-2022 Hospital Discharge instructions Patient Education 08/14/2021 04:07:44 Benign Paroxysmal [...] nausea, vomiting, and vertigo, you may use onno-ruo-ifutlhd motion sickness medicine. Examples of thisinclude meclizine and dimenhydrinate. Follow-up care Follow up with your healthcare provider, or as directed. Tell your provider about any ringing in your ear or hearing loss. If you had a CT or MRI scan, a specialist will review it. You will be told of any new findings thatmay affect your care. When to seek medical [...] healthcare provider Fast heart rate Chest pain [id number] The [employer]. [address] [place] [address], [place] [address]. All rights reserved. This information is not intended as a substitute for professional medical care. Always follow yourhealthcare professional's instructions. Follow Up Care 08/14/2021 01:16:15 With:CASSY THOMPSON DO Address: When:2-4 days With:SEFERINO HERNANDEZ MD Address:Unknown When:2-4 days [facility] 11-05-2021 NotePatient Outreach (NETNAV) AZAR TRIPLETT ([id number]) 1945 M Date Time Provider Department 03/04/21 YOSEF PARKS During your visit today, we recorded the following information about you: Yosef Parks Population Health Navigator 03/04/2021 11:12 AM [...] future healthcare decisions with a power of assistant district attorney, living will, or advance directives? No. Please bring a copy to your next appointment or email to [email or web address] Referrals: N/A Message Sent to Practice: NO Navigation Signature: Yosef Parks Population Health Navigator March 04, 2021 11:11 AM Allergies As of Date: 03/04/2021 (No Known Allergies) Date Reviewed: 02/12/2020 Reviewed by: Terri ([facility]) LAUREN Jefferson - Fully Assessed Reason for [...] 02/24/2020 Encounter Status:Closed by TO POPULATION HEALTH NAVIGATORYOSEF on 03/04/21[facility]11-05-2021 NoteHNO ID: [id number] Author: Yosef [facility] Service: ? Author Type: ? Type: Progress [...] future healthcare decisions with a power of assistant district attorney, living will, or advance directives? No. Please bring a copy to your next appointment or email to Referrals: N/A Message Sent to Practice: NO Navigation Signature: Yosef Parks Population Health Navigator March 04, 2021 11:11 [facility]06-21-2021 NotePatient Outreach ([facility]) AZAR TRIPLETT ([id number]) 1945 M Date Time Provider Department 10/18/20 NO PCP [facility] During your visit today, we recorded the following information about you: Zoila James 10/18/2020 11:42 AM Signed POPULATION HEALTH NAVIGATION OUTREACH Action/ PT has no VM or My Chart [...] Zoila James October 18, 2020 11:41 AM Allergies As of Date: 10/18/2020 (No Known Allergies) Date Reviewed: 02/12/2020 Reviewed by: Terri [facility] LAUREN Jefferson - Fully Assessed Reason for [...] 02/24/2020 Encounter Status:Closed by ZOILA BREWER on 10/18/20[facility]06-21-2021 NoteHNO ID: [id number] Author: Zoila James Service: ? Author Type: [...] : Zoila James October 18, 2020 11:41 [facility] No data available for this section [facility] Evaluation + Plan note Future Appointments Appointment Date:11/02/2022 10:30:00 AM Scheduled Provider:SEFERINO HERNANDEZ MD [facility]oint[facility] Type:[facility] Evalungayw note* Diagnosis Onset Date Resolution Status Spinal stenosis at L4-L5 level [facility] Work Phone: Evaluation note* Diagnosis PVC (premature ventricular contraction)- Primary Other premature beats Preoperative cardiovascular examination Pre-operative cardiovascular examination Essential hypertension Unspecified essential hypertension Diabetes mellitus type II, non insulin dependent (CMS/HCC) Type II or unspecified type diabetes mellitus without mention of complication, not stated as uncontrolled Abnormal EKG Nonspecific abnormal electrocardiogram (ECG) (EKG) Ischemic cardiomyopathy Other specified forms of chronic ischemic heart disease documented in this encounter [facility] Work Phone: Evaluation note* Diagnosis Abnormal EKG Nonspecific abnormal electrocardiogram (ECG) (EKG) Cardiac murmur, unspecified documented in this encounter [facility] Work Phone: Evaluation note* Diagnosis Spondylolisthesis of lumbosacral region- Primary Spondylolisthesis of lumbosacral region documented [facility] this encounter [facility]* Diagnosis Nonrheumatic aortic valve stenosis documented in this encounter [facility] Work Phone: Evaluation note* Diagnosis Aortic valve disease- Primary Aortic valve disorders documented in this encounter [facility] Work Phone: Evaluation note* Diagnosis Nonrheumatic aortic valve stenosis documented in this encounter [facility] Work Phone: Evaluation note* Diagnosis Coronary artery disease involving [place] coronary artery of [place] heart without angina pectoris- Primary Cardiomyopathy, idiopathic (Multi) Other primary cardiomyopathies Nonrheumatic aortic valve stenosis Single subsegmental pulmonary embolism without acute cor pulmonale (Multi) documented in this encounter [facility] Work Phone: Evaluation note* Diagnosis Ischemic cardiomyopathy- Primary Other specified forms of chronic ischemic heart disease Coronary artery disease involving [place] coronary artery of [place] heart without angina pectoris Cardiomyopathy, idiopathic (Multi) Other primary cardiomyopathies Nonrheumatic aortic valve stenosis Single subsegmental pulmonary embolism without acute cor pulmonale PAF (paroxysmal atrial fibrillation) (Multi) Atrial fibrillation documented in this encounter [facility] Work Phone: Evaluation note* Diagnosis Coronary artery disease involving [place] coronary artery of [place] heart without angina pectoris Cardiomyopathy, idiopathic (Multi) Other primary cardiomyopathies Nonrheumatic aortic valve stenosis Single subsegmental pulmonary embolism without acute cor pulmonale documented in this encounter [facility] Work Phone: Evaluation note* Diagnosis PAF (paroxysmal atrial fibrillation) (Multi) Atrial fibrillation documented in this encounter [facility] Work Phone: Evaluation note* Diagnosis Coronary artery disease involving [place] coronary artery of [place] heart without angina pectoris Cardiomyopathy, idiopathic (Multi) Other primary cardiomyopathies Nonrheumatic aortic valve stenosis Single subsegmental pulmonary embolism without acute cor pulmonale Ischemic cardiomyopathy Other specified forms of chronic ischemic heart disease PAF (paroxysmal atrial fibrillation) (Multi) Atrial fibrillation documented in this encounter [facility] Work Phone: Hospital Discharge instructions No data available for this section [facility] Progress note No data available for this section [facility] Reason for referral (narrative)* Consultation (Routine) - Authorized Specialty Diagnoses / Procedures Referred By Contac t Referred To Contact Cardiology Diagnoses PVC (premature ventricular contraction) Preoperative cardiovascular examination Essential hypertension Diabetes mellitus type II, non insulin dependent (CMS/HCC) Abnormal EKG Ischemic cardiomyopathy Procedures Follow Up In Cardiology Luis Donahue MD [address] [place] [address] Referral ID Status Reason Start Date Expiration Date V isits Requested Visits Authorized [id number] Authorized 06/14/2023 06/13/2024 1 1 [facility] Work Phone: Reason for visit Narrative* Auth/Cert (Routine) Specialty Diagnoses / Procedures Referred By Finn aguayo Referred To Contact Diagnoses Atherosclerotic heart disease of [place] coronary artery without angina pectoris Cardiomyopathy, unspecified Nonrheumatic aortic (valve) stenosis Single subsegmental thrombotic pulmonary embolism without acute cor pulmonale Procedures NO PRE-CERT NEEDED FOR [facility] [place] [address] [place] [address] Phone: tel: fax: Referral ID Status Reason Start Date Expiration Date Visits Re quested Visits Authorized [id number] 1 1 [facility] Work Phone: Summary Purpose Family History No Family History Records Found Relationship Condition Age at Onset Recorded Date/T dave Not Specified Family history of myocardial infarction Unknown Advance Directives No Advanced Directives Records Found Advance Directive Response Recorded Date/ Time Living Will No April 25 023 2:30pm Power of Center Human Resources Manager No April 25, 2023 2:30pm Latest Code Status on File Code Status Date Activated Date Inactivated Comments Full Code 06/19/2023 5:41 PM 06/23/2023 8:11 PM Chief Complaint and Reason for Visit Chief Complaint LUMBAR SPINE Xray room 2 LUMBAR PAIN Reason for Visit Spinal stenosis at L 4-L5 level Reason for Referral Specialty Diagnoses / Procedures Referred By Finn aguayo Referred To Contact Cardiology Diagnoses Coronary artery disease involving [place] coronary artery of [place] heart without angina pectoris Cardiomyopathy, idiopathic (Multi) Nonrheumatic aortic valve stenosis Single subsegmental pulmonary embolism without acute cor pulmonale (Multi) Procedures Transthoracic echo (TTE) complete [place] ECHO TTHRC R-T 2D W/WOM-MODE COMPL SPEC&COLR D Luis Donahue MD [address] [place] [address] Referral ID Status Reason Start Date Expiration Date Visits Requested Visits Authorized [id number] Authorized Perform Procedure 09/04/2023 09/03/2024 1 1 Specialty Diagnoses / Procedures Referred By Finn aguayo Referred To Contact Cardiology Diagnoses Coronary artery disease involving [place] coronary artery of [place] heart without angina pectoris Cardiomyopathy, idiopathic (Multi) Nonrheumatic aortic valve stenosis Single subsegmental pulmonary embolism without acute cor pulmonale (Multi) Procedures Follow Up In Cardiology Luis Donahue MD [address] [place] [address] Referral ID Status Reason Start Date Expiration Date V isits Requested Visits Authorized [id number] Authorized 09/04/2023 09/03/2024 1 1 Specialty Diagnoses / Procedures Referred By Contac t Referred To Contact Cardiology Diagnoses Nonrheumatic aortic valve stenosis Procedures Echocardiogram Stress Test Echocardiogram Stress Test Echocardiogram Stress Test [place] ECHO TTHRC R-T 2D W/WO M-MODE COMPLETE REST&ST Luis Donahue MD [address] [place] [address] Referral ID Status Reason Start Date Expiration Date Visits Requested Visits Authorized [id number] Authorized Perform Procedure 08/09/2023 08/08/2024 1 1 Specialty Diagnoses / Procedures Referred By Contac t Referred To Contact Radiology Diagnoses Nonrheumatic aortic valve stenosis Procedures CT TAVR full contrast chest abdomen pelvis Lore Marques, [facility] [address] [place] [address] Referral ID Status Reason Start Date Expiration Date Visits Requested Visits Authorized [id number] Authorized Perform Procedure 07/19/2023 07/18/2024 1 1 Specialty Diagnoses / Procedures Referred By Contac t Referred To Contact Cardiology Diagnoses Abnormal EKG Procedures Transthoracic Echo (TTE) Complete [place] ECHO TTHRC R-T 2D W/WOM-MODE COMPL SPEC&COLR D Luis Donahue MD [address] [address] u Nelly Cr Nonv1 [address] [place], [place] [address] [address] Referral ID Status Reason Start Date Expiration Date Visits Requested Visits Authorized [id number] Authorized Perform Procedure 06/06/2023 06/05/2024 1 1 Additional Source Comments (unrecognized sect ion and content) No Status Records FoundNo Status Records FoundNo Status Records FoundNo Status Records FoundNo Status Records FoundNo Status Records FoundNo Status Records Found INFORMATION SOURCE (unrecogn ized section and content) DATE CREATED AUTHOR 06/20/2021 [facility] DATE CREATED AUTHOR AUTHOR'S ORGANIZ ATION 05/12/2023 [facility] DATE CREATED AUTHOR AUTHOR'S ORGANIZ ATION 07/17/2023 [facility] DATE CREATED AUTHOR AUTHOR'S ORGANIZ ATION 07/21/2023 [facility] ([place] DATE CREATED AUTHOR AUTHOR'S ORGANIZ ATION 09/07/2023 [facility] DATE CREATED AUTHOR AUTHOR'S ORGANIZ ATION 03/11/2024 [facility] DATE CREATED AUTHOR AUTHOR'S ORGANIZ ATION 10/09/2024 [facility] Care Team (unrecognized sect ion and content) Team Status: Active Member Role Status Dates Dr. Robert Walker III, MD Family Provider Active Dr. Seferino Hernandez MD Primary Care Provider Active Team Status: Inactive Member Role Status Dates Dr. Jerry Parmar DO Attending Provider Active Team Status: Inactive Member Role Status Dates Dr. Husam Harman MD Attending Provider Active Team Status: Inactive Member Role Status Dates Dr. Jerry Parmar DO Attending Provider, Referring Raffaele pinto Active Dr. Seferino Hernandez MD Primary Care Provider Active Cell Liner Relationship Specialty Start Date End Date Seferino Hernandez [address] [place] [address] PCP - General Family Medicine 04/24/23 Guerda Page MD [address] [place] [id number] Orthopedic Surgery 04/24/23 Cell Liner Relationship Specialty Start Date End Date Seferino Hernandez MD [address] [place] [address] PCP - General Family Medicine 06/07/23 Cell Liner Relationship Specialty Start Date End Date Seferino Hernandez MD [address] [place] [place] [address] PCP - General Family Medicine 06/07/23 Cell Liner Relationship Specialty Start Date End Date Seferino Hernandez [address] [place] [address] PCP - General Family Medicine 04/24/23 Guerda Page MD [address] [place] [address] Orthopedic Surgery 04/24/23 Cell Liner Relationship Specialty Start Date End Date Seferino Hernandez [address] [place] [address] PCP - General Family Medicine 04/24/23 Guerda Page MD [address] [place] [address] Orthopedic Surgery 04/24/23 Cell Liner Relationship Specialty Start Date End Date Seferino Hernandez MD [address] [place] [address] PCP - General Family Medicine 06/07/23 Cell Liner Relationship Specialty Start Date End Date Seferino Hernandez MD [address] [place] [address] PCP - General Family Medicine 06/07/23 Cell Liner Relationship Specialty Start Date End Date Seferino Hernandez MD [address] [place] [address] PCP - General Family Medicine 08/30/23 Cell Liner Relationship Specialty Start Date End Date Seferino Hernandez MD [address] [place] [address] PCP - General Family Medicine 08/30/23 Cell Liner Relationship Specialty Start Date End Date Seferino Hernandez MD [address] [place] [address] PCP - General Family Medicine 08/30/23 Cell Liner Relationship Specialty Start Date End Date Seferino Hernandez MD [address] [place] [address] PCP - General Family Medicine 08/30/23 Cell Liner Relationship Specialty Start Date End Date Seferino Hernandez MD [address] [place] [address] PCP - General Family Medicine 08/30/23 Goals (unrecognized section and content) Goals may be documented in a n alternate section Reason for Visit (unrecogniz ed section and content) Reason Comments Surgery Scheduling 06/19/2023 Reason Comments Pre-op Clearance Specialty Diagnoses / Procedures Referred By Contac t Referred To Contact Cardiology Diagnoses Abnormal EKG Procedures Transthoracic Echo (TTE) Complete [place] ECHO TTHRC R-T 2D W/WOM-MODE COMPL SPEC&COLR D Luis Donahue MD [address] [place] [address] u Nelly Cr Nonv[address] [place] [address] Referral ID Status Reason Start Date Expiration Date Visits Requested Visits Authorized [id number] Authorized Perform Procedure 06/06/2023 06/05/2024 1 1 Specialty Diagnoses / Procedures Referred By Contjunior t Referred To Contact Diagnoses Spondylolisthesis, lumbosacral region Spondylolisthesis, lumbosacral region [M43.17] Procedures OH ARTHRD ANT INTERBODY MIN DSC LUMBAR OH ARTHRD ANT NTRBD MIN DSC EA ADDL INTERSPACE OH INSJ BIOMCHN DEV INTERVERTEBRAL DSC SPC W/ARTHRD OH ARTHRODESIS POSTERIOR/PSTLAT TQ 1NTRSPC LUMBAR OH ARTHRODESIS PST/PSTLAT TQ 1NTRSPC EA ADDL NTRSPC OH AGUILLON FACETECTOMY & FORAMOTOMY 1 VRT SGM LUMBAR OH AGUILLON FACETECTOMY&FORAMOT 1 VRT SGM EA ADDL SGM OH POSTERIOR SEGMENTAL INSTRUMENTATION 3-6 VRT SEG ANTERIOR LUMBAR INTERBODY FUSION LUMBAR 4/5-SACRAL 1, INTERBODY DEVICE BONE MORPHOGENETIC PROTEIN, POSTERIOR FUSION LUMBAR 4/5-SACRAL 1, DECOMPRESSION LUMBAR 6-5-2-4-5-SACRAL 1, PEDICLE INSTRUMENTATION AND LOCAL BONE ANTERIOR MICRODISCECTOMY AND FUSION EACH ADDITIONAL LEVEL INSERTION OF INTERBODY BIOMECHANICAL DEVICE POSTERIOR LUMBAR FUSION POSTERIOR OR POSTEROLATERAL FUSION EACH ADDITIONAL LEVEL POSTERIOR LUMBAR LAMINECTOMY FACETECTOMY FORAMINOTOMY AND DECOMPRESSION POSTERIOR CERVICAL/THORACIC/LUMBAR LAMINECTOMY FACETECTOMY FORAMINOTOMY AND DECOMPRESSION EACH ADDITIONAL POSTERIOR SPINAL INSTRUMENTATION 3 TO 6 LEVELS Guerda Page MD [address] [place] [address] [facility] Main Or [address] [place] [address] Referral ID Status Reason Start Date Expiration Date Visits Re quested Visits Authorized [id number] 1 1 Specialty Diagnoses / Procedures Referred By Contac t Referred To Contact Diagnoses NO PRE-CERT NEEDED FOR [facility]. Procedures NO PRE-CERT NEEDED FOR [facility]. [facility] [place] [id number] Card1 [id number] [place] [address] Referral ID Status Reason Start Date Expiration Date Visits Re quested Visits Authorized [id number] 1 1 Specialty Diagnoses / Procedures Referred By Contac t Referred To Contact Diagnoses Nonrheumatic aortic (valve) stenosis Procedures NO PRE-CERT NEEDED FOR [facility] Cr Nonv1 [address] [place] [address] Referral ID Status Reason Start Date Expiration Date Visits Re quested Visits Authorized [id number] 1 1 Reason Comments Cardiomyopathy Reason Comments Valve Disorder Specialty Diagnoses / Procedures Referred By Finn aguayo Referred To Contact Diagnoses Atherosclerotic heart disease of [place] coronary artery without angina pectoris Cardiomyopathy, unspecified Nonrheumatic aortic (valve) stenosis Single subsegmental thrombotic pulmonary embolism without acute cor pulmonale Procedures NO PRE-CERT NEEDED FOR [facility] Clarita [place] [address] [place] [address] [place] [address] Phone: tel: fax: Referral ID Status Reason Start Date Expiration Date Visits Re quested Visits Authorized [id number] 1 1 Reason Comments Coronary Artery Disease Specialty Diagnoses / Procedures Referred By Finn aguayo Referred To Contact Diagnoses NO PRE-CERT REQUIRED FOR [facility] Procedures NO PRE-CERT REQUIRED FOR [facility] [place] [address] [place] [address] [place] [address] Phone: tel: fax: Referral ID Status Reason Start Date Expiration Date Visits Re quested Visits Authorized [id number] 1 1 Scheduled Active and Recently Administ ered Medications (unrecognized section and content) Medication Order 06/21/2023 06/22/2023 06/23/2023 acetaminophen (Tylenol) tablet 1,000 mg (CANCELED) 1,000 mg, Oral, Every 6 hours, First dose (after last modification) on Sun06/20/23 at 1745, Phase II/On Unit, Maximum dose of acetaminophen is 4000 mg from all sources in 24 hours. 0628 (Given - Provider: Carrie Hagen RN)1145 (Not Given - Provider: Kalina Benavides RN - Reason: Other)1745 (Not Given - Provider: Kalina Benavides RN - Reason: Other) amLODIPine (Norvasc) tablet 10 mg 10 mg, Oral, Daily, First dose on Sun06/20/23 at 0800 0824 (Given - Provider: Kalina Benavides RN) 0751 (Given - Provider: Nikki Tompkins RN) 0851 (Given - Provider: Deb Salas RN) famotidine (Pepcid) tablet 20 mg 20 mg, Oral, 2 times daily, First dose on Sun06/19/23 at 2100, Phase II/On Unit 0824 (Given - Provider: Kalina Benavides RN)2039 (Given - Provider: Leisa Goldsmith RN) 0751 (Given - Provider: Nikki Tompkins RN)2220 (Given - Provider: Keara Mann RN) 0851 (Given - Provider: Dbe Salas RN) hydroCHLOROthiazide (HYDRODiuril) tablet 12.5 mg 12.5 mg, Oral, Daily, First dose on Sun06/20/23 at 0900 0824 (Given - Provider: Kalina Benavides RN) 0752 (Given - Provider: Nikki Tompkins RN) 0851 (Given - Provider: Deb Salas RN) insulin glargine (Lantus) injection 10 Units 10 Units, SubCUTAneous, Nightly, First dose on Sun06/20/23 at 2100 2038 (Given - Provider: Leisa Goldsmith RN) 2219 (Given - Provider: Keara Mann RN) Insulin Lispro (Humalog) injection 0-12 Units(Linked Group 1) 0-12 Units, SubCUTAneous, 3 times daily with meals, First dose on Sun06/20/23 at 1700, Medium Dose Correction Algorithm Glucose: Dose: LESS than 139 No Insulin 140-199 2 Unit 200-249 4 Units 250-299 6 Units 300-349 8 Units 350-400 10 Units Above 400 12 Units 0823 (Given - Provider: Kalina Benavides RN - Comment: [phone] (Given - Provider: Kalina Benavides RN - Comment: 10 total)1742 (Given - Provider: Kalina Benavides RN - Comment: 250, 12 total) 0752 (Given - Provider: Nikki Tompkins RN - Comment: bgl [phone] (Given - Provider: Nikki Tompkins RN - Comment: bgl bgl [phone] (Given - Provider: Nikki Tompkins RN - Comment: bgl 243) 0853 (Given - Provider: Dbe Salas RN)1223 (Given - Provider: Deb Salas RN)1700 (Canceled Entry - Provider: Automatic Discharge Provider - Comment: Automatically canceled at discontinue of medication order) Insulin Lispro (Humalog) injection 0-12 Units(Linked Group 1) 0-12 Units, SubCUTAneous, Nightly, First dose on Sun06/20/23 at 2100, If continuous tube feedings/TPN/NPO, give correction dose based on result, no reduction in dose. If eating or bolus tube feeding: Medium Dose Correction Algorithm Glucose: Dose: LESS than 139 No Insulin 140-199 2 Unit 200-249 4 Units 250-299 6 Units 300-349 8 Units 350-400 10 Units Above 400 12 Units 2038 (Given - Provider: Leisa Goldsmith RN) 2220 (Given - Provider: Keara Mann RN) Insulin Lispro (Humalog) injection 10 Units 10 Units, SubCUTAneous, 3 times daily with meals, First dose (after last modification) on Sun06/22/23 at 1200 1210 (Given - Provider: Nikki Tompkins RN)1808 (Given - Provider: Nikki Tompkins RN) 0852 (Given - Provider: Deb Salas RN)1223 (Given - Provider: Deb Salas RN)1700 (Canceled Entry - Provider: Automatic Discharge Provider - Comment: Automatically canceled at discontinue of medication order) Insulin Lispro (Humalog) injection 6 Units (CANCELED) 6 Units, SubCUTAneous, 3 times daily with meals, First dose on Sun06/20/23 at 1700 0822 (Given - Provider: Kalina Benavides RN - Comment: [phone] (Given - Provider: Kalina Benavides RN - Comment: [phone] (Given - Provider: Kalina Benavides RN - Comment: 250) 0750 (Given - Provider: Nikki Tompkins RN) lactulose (Chronulac) 10 GM/15ML solution 10 g (COMPLETED) 10 g, Oral, Once, On Sun06/22/23 at 1845, For 1 dose 1842 (Given - Provider: Nikki Tompkins RN) lisinopril tablet 20 mg 20 mg, Oral, Daily, First dose on Sun06/20/23 at 0900 0824 (Given - Provider: Kalina Benavides RN) 0750 (Given - Provider: Nikki Tompkins, RN) 0851 (Given - Provider: Deb Salas, [place]) polyethylene glycol (PEG) 3350 (Miralax) packet 17 g (CANCELED) 17 g, Oral, Daily, First dose (after last modification) on Sun06/21/23 at 0900, 1st line for treatment of constipation - give scheduled if no bowel movement in past 24 hours. 1417 (Given - Provider: Kalina Benavides RN) 0751 (Given - Provider: Nikki Tompkins RN) polyethylene glycol (PEG) 3350 (Miralax) packet 17 g 17 g, Oral, 2 times daily, First dose (after last modification) on Sun06/22/23 at 1830, 1st line for treatment of constipation - give scheduled if no bowel movement in past 24 hours. 2100 (Not Given - Provider: Keara Mann RN - Reason: Patient/family refused) 0600 (Not Given - Provider: Keara Mann RN - Reason: Patient/family refused)1500 (Not Given - Provider: Deb Salas RN - Reason: Patient/family refused) senna-docusate sodium (Senokot-S) 8.6-50 MG tablet 2 tablet (CANCELED) 2 tablet, Oral, Daily, First dose on Sun06/21/23 at 0900 1417 (Given - Provider: Kalina Benavides RN) 0750 (Given - Provider: Nikki Tompkins RN) senna-docusate sodium (Senokot-S) 8.6-50 MG tablet 2 tablet 2 tablet, Oral, 2 times daily, First dose (after last modification) on Sun06/22/23 at 1830 2100 (Not Given - Provider: Keara Mann RN - Reason: Patient/family refused) 0600 (Not Given - Provider: Keara Mann RN - Reason: Patient/family refused)1500 (Not Given - Provider: Deb Salas RN - Reason: Patient/family refused) sodium chloride 0.9% (NS) flush 10 mL 10 mL, IntraVENous, Every 12 hours scheduled (2 times per day), First dose on Sun06/19/23 at 2100, Phase II/On Unit 0900 (Not Given - Provider: Kalina Benavides, [place] - Reason: Other)2038 (Given - Provider: Leisa Goldsmith RN) 0856 (Given - Provider: Nikki Tompkins RN)2099 (Not Given - Provider: Keara Mann RN - Reason: Other) 0853 (Given - Provider: Deb Salas RN) PRN Medication Order 06/21/2023 06/22/2023 06/23/2023 acetaminophen (Tylenol) tablet 650 mg 650 mg, Oral, Every 6 hours PRN, mild pain (1-3), fever, headaches, Starting on Maricel 06/21/23 at 2050, Maximum dose of acetaminophen is 4000 mg from all sources in 24 hours. 2123 (Given - Provider: Leisa Goldsmith RN) 0517 (Given - Provider: Leisa Goldsmith RN) baclofen (Lioresal) tablet 10 mg 10 mg, Oral, Every 12 hours PRN, muscle spasms, Starting on Sun06/19/23 at 1741, Phase II/On Unit dextrose 5 % infusion 100 mL/hr, IntraVENous, PRN, Blood sugar less than 70mg/dL, Starting on Sun06/20/23 at 0155, Start infusion following administration of dextrose 50% or glucagon. dextrose 50 % solution 12.5 g 12.5 g, IntraVENous, PRN, low blood sugar, Blood glucose less than 70 mg/dL and patient NOT ALERT or NPO., Starting on Sun06/20/23 at 0155, If patient does not respond within 5 minutes, repeat dose x1. Start D5W at 100 mL/hour until ordering provider can be reached. Repeat blood glucose in 15 minutes. If blood glucose is less than 70 mg/dL, repeat treatment and recheck blood glucose in 15 minutes x2. If using Glucostabilizer, dose as instructed per system. glucagon (human recombinant) injection 1 mg 1 mg, IntraMUSCular, PRN, low blood sugar, Blood glucose less than 70 mg/dL and patient NOT ALERT or NPO and does not have IV access., Starting on Sun06/20/23 at 0155, After administration, attempt intravenous access and start D5W at 100 mL/hr. Repeat blood glucose in 15 minutes x2 and notify provider. glucose oral gel 15 g 15 g, Oral, As needed, low blood sugar, Starting on Sun06/20/23 at 0155, If blood glucose less than 50 mg/dL and patient ALERT and NOT NPO, give 2 tubes glucose gel. If blood glucose less than 70 mg/dL and patient ALERT and NOT NPO, give 1 tube glucose gel. Repeat blood glucose in 15 minutes. If blood glucose is less than 70 mg/dL, repeat treatment and recheck blood glucose in 15 minutes x2 and notify provider. HYDROmorphone (Dilaudid) injection 0.25 mg(Linked Group 2) 0.25 mg, IntraVENous, Every 3 hours PRN, moderate pain (4-6), Starting on Sun06/19/23 at 1741, Phase II/On Unit, If oral and IV narcotics ordered, use oral first and only use IV if oral is ineffective or cannot take oral. Do Not give oral and IV within 1 hour of each other unless specifically ordered. HYDROmorphone (Dilaudid) injection 0.5 mg(Linked Group 2) 0.5 mg, IntraVENous, Every 3 hours PRN, severe pain (7-10), Starting on Sun06/19/23 at 1741, Phase II/On Unit, If oral and IV narcotics ordered, use oral first and only use IV if oral is ineffective or cannot take oral. Do Not give oral and IV within 1 hour of each other unless specifically ordered. hydrOXYzine HCl (Atarax) tablet 10 mg 10 mg, Oral, Every 8 hours PRN, itching, Starting on Sun06/19/23 at 1741, Phase II/On Unit naloxone (Narcan) injection 0.4 mg 0.4 mg, IntraVENous, Every 5 min PRN, opioid reversal, respiratory depression, Starting on Sun06/19/23 at 1743, +++ For RR <10, pinpoint pupils, over sedation for opioid reversal - MUST notify fashion designer provider immediately after first dose, may give IM or SQ if no IV access +++ ondansetron (Zofran) injection 4 mg(Linked Group 3) 4 mg, IntraVENous, Every 6 hours PRN, nausea, vomiting, Starting on Sun06/19/23 at 1741, Phase II/On Unit, 1st Line. Give IV if patient is unable to take orally. If inadequate response within 60 minutes, proceed to next-line agent or contact provider if no further options ordered. ondansetron ODT (Zofran-ODT) disintegrating tablet 4 mg(Linked Group 3) 4 mg, Oral, Every 8 hours PRN, nausea, vomiting, Starting on Sun06/19/23 at 1741, Phase II/On Unit, 1st Line. If inadequate response within 60 minutes, proceed to next-line agent or contact provider if no further options ordered. Patient should allow tablet to dissolve on tongue. Do not remove from blister pack until just before administering. oxyCODONE-acetaminophen (Percocet) 5-325 MG per tablet 1 tablet(Linked Group 4) 1 tablet, Oral, Every 4 hours PRN, moderate pain (4-6), Starting on Sun06/19/23 at 1741, Phase II/On Unit, Maximum dose of acetaminophen is 4000 mg from all sources in 24 hours. oxyCODONE-acetaminophen (Percocet) 5-325 MG per tablet 2 tablet(Linked Group 4) 2 tablet, Oral, Every 4 hours PRN, severe pain (7-10), Starting on Sun06/19/23 at 1741, Phase II/On Unit, Maximum dose of acetaminophen is 4000 mg from all sources in 24 hours. sodium chloride 0.9 % infusion 5-250 mL/hr, IntraVENous, PRN, if patient receiving piggyback infusions and maintenance fluids are not ordered OR KVO fluids to protect IV site / prevent frequent line interruptions/ long duration, Starting on Sun06/19/23 at 1741, Phase II/On Unit, For piggyback infusion, administer at same rate as piggyback for a total of 25 mL. Enter 25 mL into dose field and piggyback rate into rate field of order. If piggyback is infusing at a rate less than 100 mL/hr, enter 25 mL into dose field and 100 mL/hr into rate field of order. For KVO fluids, enter rate of 20 mL/hr or less into rate field of order. sodium chloride 0.9% (NS) flush 10 mL 10 mL, IntraVENous, PRN, line care, Starting on Sun06/19/23 at 1741, Phase II/On Unit, After every IV line use Linked Groups Order Group 1: Insulin Lispro (Humalog) injection 0-12 UnitsJump to med 0-12 Units, SubCUTAneous, 3 times daily with meals, First dose on Sun06/20/23 at 1700, Medium Dose Correction Algorithm Glucose: Dose: LESS than 139 No Insulin 140-199 2 Unit 200-249 4 Units 250-299 6 Units 300-349 8 Units 350-400 10 Units Above 400 12 Units And Insulin Lispro (Humalog) injection 0-12 UnitsJump to med 0-12 Units, SubCUTAneous, Nightly, First dose on Sun06/20/23 at 2100, If continuous tube feedings/TPN/NPO, give correction dose based on result, no reduction in dose. If eating or bolus tube feeding: Medium Dose Correction Algorithm Glucose: Dose: LESS than 139 No Insulin 140-199 2 Unit 200-249 4 Units 250-299 6 Units 300-349 8 Units 350-400 10 Units Above 400 12 Units Group 2: HYDROmorphone (Dilaudid) injection 0.25 mgJump to med 0.25 mg, IntraVENous, Every 3 hours PRN, moderate pain (4-6), Starting on Sun06/19/23 at 1741, Phase II/On Unit, If oral and IV narcotics ordered, use oral first and only use IV if oral is ineffective or cannot take oral. Do Not give oral and IV within 1 hour of each other unless specifically ordered. Or HYDROmorphone (Dilaudid) injection 0.5 mgJump to med 0.5 mg, IntraVENous, Every 3 hours PRN, severe pain (7-10), Starting on Sun06/19/23 at 1741, Phase II/On Unit, If oral and IV narcotics ordered, use oral first and only use IV if oral is ineffective or cannot take oral. Do Not give oral and IV within 1 hour of each other unless specifically ordered. Group 3: ondansetron ODT (Zofran-ODT) disintegrating tablet 4 mgJump to med 4 mg, Oral, Every 8 hours PRN, nausea, vomiting, Starting on Sun06/19/23 at 1741, Phase II/On Unit, 1st Line. If inadequate response within 60 minutes, proceed to next-line agent or contact provider if no further options ordered. Patient should allow tablet to dissolve on tongue. Do not remove from blister pack until just before administering. Or ondansetron (Zofran) injection 4 mgJump to med 4 mg, IntraVENous, Every 6 hours PRN, nausea, vomiting, Starting on Sun06/19/23 at 1741, Phase II/On Unit, 1st Line. Give IV if patient is unable to take orally. If inadequate response within 60 minutes, proceed to next-line agent or contact provider if no further options ordered. Group 4: oxyCODONE-acetaminophen (Percocet) 5-325 MG per tablet 1 tabletJump to med 1 tablet, Oral, Every 4 hours PRN, moderate pain (4-6), Starting on Sun06/19/23 at 1741, Phase II/On Unit, Maximum dose of acetaminophen is 4000 mg from all sources in 24 hours. Or oxyCODONE-acetaminophen (Percocet) 5-325 MG per tablet 2 tabletJump to med 2 tablet, Oral, Every 4 hours PRN, severe pain (7-10), Starting on Sun06/19/23 at 1741, Phase II/On Unit, Maximum dose of acetaminophen is 4000 mg from all sources in 24 hours. FOR RECORDS PERTAINING TO PATIENTS WHO ARE [...] BE BASED ON THE PRIMARY CLINICAL RECORDS. [employer] provides no warranty or guarantee of the accuracy or completeness of information in this document.
--- NOTE | 2024-10-22 00:57 | PCM.HP.STD ---
HPI - General General Date of Admission: 10/22/24 Date of Service: 10/22/24 Chief Complaint: Chest pain. HPI Narrative The patient is an 79 y/o M w/ PMHx: Hx VTE (DVT, PE), Diabetes mellitus type 2, HTN, HLD, Valvular Heart Disease, Chronic lumbar back pain, CAD s/p PCI who presents to the [facility] ED on 10/22/2024 with history of onset of chest discomfort primarily left-sided starting 3 hours prior to ED arrival noting that it improved since his presentation with associated left upper extremity involvement and some paresthesias to his fingers in his left hand with nausea without emesis with mild dyspnea and nonproductive cough in addition to lightheadedness prompting eventual ED evaluation to be cautious. Notes when the discomfort was present in his left chest and left upper extremity it was rated potentially 3 out of 10 in severity. He denies any chest discomfort or left upper extremity discomfort at this time. He did have previously paresthesias in the left fingertips but this is absent now. Workup in the ED included T98.4, heart rate 69, BP 163/86, respiratory rate 18, 97% on room air with most recent repeat vitals T97.8, heart rate 65, BP 136/62, respiratory rate 16, 95% room air, CBC with WC 8.3, hemoglobin 13.2, MCV 85.9, platelet 141 with increased immature granulocytes, D-dimer 0.42, BMP with BUN/canaille 20/0.98, GFR 78, glucose 146, troponin initial 56, chest x-ray with questionable early right lower lobe infiltrates, EKG with sinus rhythm with inverted T waves in 1 and [address]VL [address] nonspecific [address]-T wave changes change from previous EKG although this was from 2019 with the T wave inversions in leads I and aVL new from previous. In the ED patient ministered full-strength aspirin therapy and sublingual nitroglycerin. Patient did have pain improvement following nitroglycerin administration. ED physician noted low suspicion for pneumonia given no recent significant cough, congestion, fever, chills or symptoms of even dyspnea beyond the single day of presentation. [facility] Medical History History of venous thromboembolism CAD (coronary artery disease) HLD (hyperlipidemia) Spinal stenosis at L4-L5 level Low back pain Aortic valve disease Back pain Neck pain Hypertension Home Medications ?Medication ?Instructions ?Recorded ?Last Taken ?Type hydrochlorothiazide 25 mg tablet 25 mg PO DAILY 05/13/15 Unknown History lisinopril 20 mg tablet 20 mg PO DAILY 05/13/15 Unknown History glimepiride 4 mg tablet 4 mg PO DAILY 05/02/23 Unknown History amlodipine 5 mg tablet 5 mg PO DAILY 10/21/24 Unknown History apixaban 1 tab PO BID 10/21/24 Unknown History atorvastatin 40 mg tablet 40 mg PO QHS 10/21/24 Unknown History carvedilol 25 mg tablet 25 mg PO BID 10/21/24 Unknown History Allergy/AdvReac Type Severity Reaction Status Date / Time No Known Allergies Allergy Verified 10/21/24 22:40 Family History (Updated 10/22/24 @ 01:[address] Raissa Hayes MD) Mother Family history of heart attack Heart disease CAD (coronary artery disease) Hypertension Father Family history of heart attack Heart disease CAD (coronary artery disease) Hypertension Surgical History Hx of heart artery stent History of cholecystectomy History of back surgery History of appendectomy History of hernia repair Social History household members: spouse Smoking Status: Never smoker alcohol intake: never substance use type: does not use ROS ROS Narrative Admission Review of Systems: CONSTITUTIONAL: No weight loss, fever, chills, + weakness or fatigue. HEENT: Eyes: No visual loss, blurred vision, double vision or yellow sclerae. Ears, Nose, Throat: No hearing loss, sneezing, congestion, runny nose or sore throat. SKIN: No rash or itching, lesions, wounds. CARDIOVASCULAR: + Chest pain. No palpitations, edema, orthopnea, syncopal events. RESPIRATORY: + Dyspnea, nonproductive cough. No sputum, wheezing, hemoptysis. GASTROINTESTINAL: + Anorexia/lack of appetite, nausea. No vomiting or diarrhea, abdominal pain, melena, BRBPR. GENITOURINARY: No dysuria, frequency, urgency or retention. NEUROLOGICAL: + Left upper extremity paresthesias. No headache, dizziness, syncope, paralysis, ataxia, focal weakness, change in bowel or bladder control, seizure. MUSCULOSKELETAL: No muscle, back pain, joint pain or stiffness. HEMATOLOGIC: No anemia. + Easy bleeding/bruising. LYMPHATICS: No enlarged nodes. No history of splenectomy. PSYCHIATRIC: No history of depression or anxiety. ENDOCRINOLOGIC: No reports of sweating, cold or heat intolerance. No polyuria or polydipsia. ALLERGIES: No history of asthma, hives, eczema or rhinitis. Vital Signs Vital Signs Vital Signs: 10/21/24 22:44 10/21/24 22:44 10/21/24 23:21 Temperature 98.4 F Temperature Source Oral Pulse Rate 69 Respiratory Rate 18 Respiratory Effort Normal Non-Labored Respiratory Pattern Normal Blood Pressure 163/86 H Blood Pressure Mean 111 Pulse Ox 97 98 Oxygen Delivery Method Room Air Room Air 10/21/24 23:25 10/21/24 23:30 10/22/24 00:00 Temperature Temperature Source Pulse Rate 66 67 61 Respiratory Rate 18 16 Respiratory Effort Respiratory Pattern Blood Pressure 145/76 H 117/67 145/69 H Blood Pressure Mean 83 94 Pulse Ox 95 96 Oxygen Delivery Method Room Air Room Air 10/22/24 00:38 Temperature 97.8 F Temperature Source Pulse Rate 65 Respiratory Rate 16 Respiratory Effort Respiratory Pattern Blood Pressure 136/62 H Blood Pressure Mean 86 Pulse Ox 95 Oxygen Delivery Method Weight Weight: 178 lb 12.718 oz Body Mass Index (BMI) 29.7 Physical Exam Narrative Physical Examination: General: Awake, alert, oriented x 3 and cooperative, seated upright in ED bed, denies any chest pain at this time. Skin: Normal color, normal turgor, no icterus, no cyanosis except occasional stage ecchymoses, abrasion. HEENT: AT/NC, EOMI, PERRLA, MMM, no carotid bruits or JVD noted. Lungs: Mildly diminished, greater bases, appropriate effort, no rales, ronchi or wheezing. Heart: Regular rate and rhythm; no gallop, rub audible, + SM. Abdomen: Soft, overweight, NTTP, ND, mildly hyperactive BS, no appreciated HSM. Extremities: No cyanosis, no clubbing, mild ankle not markedly pitting edema bilaterally. Neurological: Patient awake, alert, oriented as noted, cognitive function intact; pupils equally reactive to light and accommodation, cranial nerves gross normal, moving all 4 extremities, no focal deficits, strength moderately globally decreased. Psychiatric: Affect appears fatigued otherwise normal, no acute evidence of depressive or anxiety feelings. Results Lab / Micro Data 10/21/24 22:53 10/21/24 22:53 Labs: Laboratory Results - last 24 hr 10/21/24 22:53: WBC 8.3, RBC 4.46 L, Hgb 13.2, Hct 38.3 L, MCV 85.9, MCH 29.6, MCHC 34.5, RDW Std Deviation 39.8, RDW Coeff of Francy 12.6, Plt Count 141 L, MPV 11.5, Immature Gran % (Auto) 1.000 H, Neut % (Auto) 62.0, Lymph % (Auto) 25.4, Kerr % (Auto) 9.5, Eos % (Auto) 1.6, Baso % (Auto) 0.5, Absolute Neuts (auto) 5.2, Absolute Lymphs (auto) 2.12, Nucleated RBC % 0, D-Dimer Quant (PE/DVT) 0.42, Sodium 139, Potassium 3.6, Chloride 102, Carbon Dioxide 24.7, Anion Gap 12, BUN 20 H, Creatinine 0.98, Estim Creat Clear Calc 57.98, Est GFR (MDRD) Non-Af 78, BUN/Creatinine Ratio 20.1 H, Glucose 146 H, Calcium 9.2, Troponin T High Sens 56 H* Imaging Radiology Impression Chest X-Ray 10/21/24 23:40 IMPRESSION: Possible early right lower lobe infiltrates. Reading Location: [place] [id number] Assessment & Plan Assessment/Plan (1) Chest pain: (2) Elevated troponin: PLAN: Plan The patient is an 79 y/o M w/ PMHx: Hx VTE (DVT, PE), Diabetes mellitus type 2, HTN, HLD, Valvular Heart Disease, Chronic lumbar back pain, CAD s/p PCI who presents to the [facility] ED on 10/22/2024 with history of onset of chest discomfort primarily left-sided starting 3 hours prior to ED arrival noting that it improved since his presentation with associated left upper extremity involvement and some paresthesias to his fingers in his left hand with nausea without emesis with mild dyspnea and nonproductive cough in addition to lightheadedness prompting eventual ED evaluation to be cautious. #1. Chest Pain with indeterminate cardiac enzyme of unclear significance: ED evaluation with troponin initial 56, chest x-ray with questionable early right lower lobe infiltrates, EKG with sinus rhythm with inverted T waves in 1 and aVL and nonspecific ST-T wave changes change from previous EKG although this was from 2019 with the T wave inversions in leads I and aVL new from previou. Will admit to PCU, place on a monitored bed to assure no acute myocardial infarction with serial cardiac enzymes and EKGs. Magnesium level requested. FLP in AM. If repeat serial cardiac enzymes remain similar with no further EKG concerning findings or changes then would plan to pursue a.m. cardiac stress testing however if troponins rise then at that time would request cardiology consultation. Will maintain n.p.o. status on judicious IV fluids. Procalcitonin requested. #2. Hyperglycemia without diabetic history: Admission glucose 146, will obtain hemoglobin A1c to be cautious. #3. Thrombocytopenia, unclear chronicity: Admission platelet 141, no comparison labs available to us unclear if chronic or acute, certainly possibility of reactive, will continue to trend CBC to further elucidate. #4. CAD: Reportedly PCI, will continue Eliquis regimen however as noted if enzymes rise notably then would hold at next dose due and transition to heparin drip if appropriate, continue statin therapy, Coreg, lisinopril home regimen. #5. Valvular heart disease: Notable aortic valve disease, at this point there is no specific plan for valvular intervention per discussion with patient, who was diagnosed previous to planned back surgery in the past, no echocardiogram into the system, if enzymes rise notably as noted above would plan to consult cardiology and will add echocardiogram request at that time. #6. Possible Chronic Kidney Disease Stage II: Admission BUN/Cr 20/0.8, GFR 78 without marked comparison labs available unfortunately, baseline renal function unknown, repeat BMP in AM to further elucidate. #7. Diabetes mellitus type II: Hold oral home regimen, currently n.p.o. however once appropriate will reinitiate ADA diet, accu checks w/ ISS. #8. Chronic lumbar back pain: Complicates presentation, encourage positional changes. #9. Hypertension: Continue home regimen including amlodipine, lisinopril, hydrochlorothiazide, Coreg, PRN hydralazine. #10. Hyperlipidemia: Continue home statin regimen. AM FLP. #11. Hx VTE: Will continue home eliquis regimen as noted. #12. DVT prophylaxis: Will continue Eliquis regimen pending cardiac enzyme trending however if rises further would plan to hold and at next dose to potentially transition to a heparin drip pending cardiology evaluation. #13. CODE status: Patient does not have healthcare power of client coordinator or living will in place but notes he would want his to his medical decision-maker if necessary. Discussed CODE status at length including difference between FULL code, DNR-CCA and DNR-CC status. Following discussions about the differences in these status, requested very specifically DNR CCA, no intubation with examples given and confirmed. Advanced Care Planning Face to Face Time: 16 minutes. Charges/Coding Visit Charges Inpatient E&M: 88418 Init Hosp L2 Procedures Hospitalists Procedures: 56437 Advncd Care Plan 30 Min
--- NOTE | 2024-10-22 01:02 | EKG12_ITS ---
Test Reason : cp admit Blood Pressure : */* mmHG Vent. Rate : 68 BPM Atrial Rate : 68 BPM P-R Int : 194 ms QRS Dur : 90 ms QT Int : 444 ms P-R-T Axes : 67 10 95 degrees QTcB Int : 472 ms Normal sinus rhythm ST & T wave abnormality, consider lateral ischemia Abnormal ECG When compared with ECG of 21-Oct-2024 22:48, MANUAL COMPARISON REQUIRED DATA IS UNCONFIRMED Confirmed by TONY REYNOSO, JAROD ([id number]), purchase request editor АЛЕКСАНДР DUMONT ([id number]) on 10/22/2024 1:21:22 PM Referred By: Freddy Confirmed By: JAROD JIMENEZ MD
[2024-10-22 01:20] LABS: Magnesium 2.1 mg/dL (1.5-2.2)
[2024-10-22 01:26] LABS: Troponin T High Sens 2 HR 46 ng/L (<=22)
--- OUTSIDE RECORDS SUMMARY | 2024-10-22 01:59 | XMS RPT_ITS | CCD ---
Author Organization [facility] CliniSyil Care Team Providers Care Clinical Coordinator Name Role Phone SEFERINO HERNANDEZ MD Primary Care Physician SEFERINO HERNANDEZ MD Consulting Unavailable ORTIZ VALDEZ Attending Unavailable ORTIZ VALDEZ Primary Care Unavailable ORTIZ VALDEZ Admitting Unavailable PROVIDER, UNKNOWN Consulting Unavailable PROVIDER, UNKNOWN Consulting Unavailable Dr. Jerry Parmar Attending Provider [phone] Dr. Husam Harman Attending Provider [phone] Seferino Hernandez Primary Care Provider [phone] Kaylee Alvarez MD, Guerda Unavailable Seferino Hernandez MD Primary Care Provider GUERDA PAGE Attending Unavailable SEFERINO HERNANDEZ Primary Care Unavailable GUERDA PAGE Admitting Unavailable GUERDA PAGE Attending Unavailable SEFERINO HERNANDEZ Primary Care Unavailable REE MENG Consulting [...] wheezing, # 18 gram(s), 0 Refill(s), Pharmacy: [facility], Acute bronchitis, kg, 07/11/21 [...] cholesterol., # 90 tab(s), 3 Refill(s), Pharmacy: [facility] Start Date: 04/05/21 Stop Date: 03/31/22 [...] mg tablet Indications: Coronary artery disease involving [place] coronary artery of [place] heart without angina pectoris , Cardiomyopathy, idiopathic [...] mg tablet Indications: Coronary artery disease involving [place] coronary artery of [place] heart without angina pectoris , Cardiomyopathy, idiopathic [...] mg tablet Indications: Coronary artery disease involving [place] coronary artery of [place] heart without angina pectoris , Cardiomyopathy, idiopathic [...] BIDM, # 60 tab(s), 1 Refill(s), Pharmacy: [facility], 165.1, cm, 07/03/23 4:54:00 EST, Height, [...] food, # 90 tab(s), 3 Refill(s), Pharmacy: [facility], 161, cm, 03/13/23 9:43:00 EST, Height, kg, 03/13/23 9:32:00 EST, Dosing Weight Start Date: 03/13/23 Status: Ordered Start: 05-04-2022 End: 04-29-2023 glimepiride 2 mg oral tablet Dose : 2 mg = 1 tab(s), Oral, Daily, Take 1 tablet by mouth daily with breakfast., # 90 tab(s), 3 Refill(s), Pharmacy: [facility], 161.5, cm, 05/04/22 9:58:00 EST, Height, kg, 05/04/22 9:58:00 EST, Dosing Weight Start Date: 05/04/22 Stop Date: 04/29/23 Status: Ordered Start: 04-05-2021 End: 03-31-2022 glimepiride 2 mg oral tablet Dose : 2 mg = 1 tab(s), Oral, Daily, Take 1 tablet by mouth daily with breakfast., # 90 tab(s), 3 Refill(s), Pharmacy: [facility] Start Date: 04/05/21 Stop Date: 03/31/22 [...] food, # 30 tab(s), 11 Refill(s), Pharmacy: [facility], 161, cm, 03/13/23 9:43:00 EST, Height, [...] daily., # 90 tab(s), 3 Refill(s), Pharmacy: [facility] Start Date: 04/05/21 Stop Date: 03/31/22 Status: Ordered Completed/Discontinued Medications Medication Drug Class(es) Dates Sig (Normalized) Sig (Original) Acetaminophen / oxyCODONE (2 sources) Opioid Agonist Start: 4 End: 4 take 1 tablet by mouth every four hours as needed for pain oxyCODONE-acetamin ophen (Percocet) 5-325 MG per tablet 1 tablet [id number] 200 actuat albuterol 0.09 mg/actuat metered dose [...] mg tablet Indications: Coronary artery disease involving [place] coronary artery of [place] heart without angina pectoris Take 1 tablet [...] Unit docusate sodium 50 mg / sennosides, halfway 8.6 mg oral tablet (4 sources) Start: [...] daily., # 90 cap(s), 3 Refill(s), Pharmacy: [facility], 161.5, cm, 05/04/22 9:58:00 EST, Height, kg, 05/04/22 9:58:00 EST, Dosing Weight Start Date: 05/04/22 Stop Date: 04/29/23 Status: Ordered Start: 04-05-2021 End: 03-31-2022 hydroCHLOROthiazide 12.5 mg oral capsule Dose : 12.5 mg = 1 cap(s), Oral, qDay, Take 1 capsule by mouth once daily., # 90 cap(s), 3 Refill(s), Pharmacy: [facility] Start Date: 04/05/21 Stop Date: 03/31/22 [...] DAY, # 90 tab(s), 3 Refill(s), Pharmacy: [facility], 161.5, cm, 05/04/22 9:58:00 EST, Height, kg, 05/04/22 9:58:00 EST, Dosing Weight Start Date: 05/04/22 Stop Date: 04/29/23 Status: Ordered Start: 05-13-2015 End: 03-31-2022 lisinopril 20 mg oral tablet Dose : 20 mg = 1 tab(s), Oral, Daily, TAKE 1 TABLET BY MOUTH EVERY DAY, # 90 tab(s), 3 Refill(s), Pharmacy: [facility] Start Date: 04/05/21 Stop Date: 03/31/22 [...] 0 06/23/2023 06/23/2023 Discontinued polyethylene glycol 3350 29871 mg powder for oral solution (5 sources) [...] Q-T Interval 390 QTC Calculation(Bazett) 453 R [place] 26 T [place] 134 QRS Count 13 Q Onset 219 T Offset 414 QTC Fredericia 430 Diagnosis Atrial fibrillation with premature ventricular or aberrantly conducted complexes ST & T wave abnormality, consider lateral ischemia or digitalis effect Abnormal ECG No previous ECGs available Confirmed by Lius Donahue ([id number]) on 03/10/2024 9:26:57 AM Normal [facility] TRANSTHORACIC ECHO (TTE) COM PLETEon 03-06-2024 TRANSTHORACIC ECHO (TTE) COMPLETE [facility] [place], [place] [address] and TRANSTHORACIC ECHOCARDIOGRAM REPORT Patient Name: AZAR TRIPLETT Reading Physician: [id number] Donahue MD Study Date: 03/06/2024 Ordering Provider: [id number] LUIS DONAHUE MRN/PID: [id number] Fellow: Nurse: Date of /Age: 4 1945 Director Of Digital Technology: Shamika morales ANKIT Gender assigned at M Additional Staff: : Height: 165.10 cm Admit Date: 03/06/2024 Weight: 83.91 kg Admission Status: Outpatient BSA / BMI: 1.91 m2 / 30.79 kg/m2 Blood Pressure: / Department Location: [facility] Study Type: TRANSTHORACIC ECHO (TTE) COMPLETE Diagnosis/ICD: Unspecified atrial fibrillation-I48.91; Nonrheumatic aortic (valve) stenosis-I35.0 Indication: Atrial Fibrillation CPT Code: Echo Complete w Full Doppler-10905 Study Detail: The following Echo studies were [...] LA Area A2C: 19.9 cm2 LA Major [place] A4C: 5.4 cm LA Major [place] A2C: 4.9 cm LA Vol A4C: 61.9 ml LA Vol A2C: 62.9 ml LA Vol Index BSA: 32.6 ml/m2 RA VOLUME BY A/L METHOD: Normal Ranges: RA Vol A4C: 23.3 ml (8.3-19.5ml) RA Vol Index A4C: 12.2 ml/m2 RA Area A4C: 11.1 cm2 RA Major [place] A4C: 4.5 cm LV SYSTOLIC FUNCTION BY 2D PLANIMETRY (MOD): Normal Ranges: EF-A4C View: 51 % (>=55%) EF-A2C View: 45 % EF-Biplane (more content not included)... Normal [facility] CT Neck+Chest+Abdomen+Pelvis W contrast [place] 07-23-2023 [...] Jayden Moore 07/23/2023 3:28 PM Dictation workstation: [id number] Interpreted By: Jayden Moore, STUDY: CT TAVR FULL CONTRAST CHEST ABDOMEN PELVIS; 07/23/2023 10:56 am INDICATION: Signs/Symptoms:aortic stenosis, syncope. COMPARISON: None. ACCESSION NUMBER(S): [id number] ORDERING CLINICIAN: AMANDEEP VILLANUEVA TECHNIQUE: Multi-detector CT [...] are patent. No endobronchial lesion is seen. Fkupi-pavwquc-mcft-lef t basilar predominant ground-glass and linear opacities [...] Signs/Symptoms:aortic stenosis, syncope. COMPARISON: None. ACCESSION NUMBER(S): [id number] ORDERING CLINICIAN: AMANDEEP VILLANUEVA TECHNIQUE: Multi-detector CT [...] are patent. No endobronchial lesion is seen. Ljrpa-jncmift-yjxd-lef t basilar predominant ground-glass and linear opacities [...] of focal w (more content not included)... [facility] Work Phone: Radiology Study observation (narrative) [facility] Work Phone: CT Neck+Chest+Abdomen+Pelvis W contrast IVOrdered By: Jayden Moore on 07-23-2023 [facility] Work Phone: CT TAVR FULL CONTRAST CHEST ABDOMEN PELVISon 07-23-2023 CT TAVR FULL CONTRAST CHEST ABDOMEN PELVIS Interpreted By: Jayden Moore, STUDY: CT TAVR FULL CONTRAST CHEST ABDOMEN PELVIS; 07/23/2023 10:56 am INDICATION: Signs/Symptoms:aortic stenosis, syncope. COMPARISON: None. ACCESSION NUMBER(S): [id number] ORDERING CLINICIAN: AMANDEEP VILLANUEVA TECHNIQUE: Multi-detector CT [...] are patent. No endobronchial lesion is seen. Tifsm-xhjhbta-phhs-lef t basilar predominant ground-glass and linear opacities [...] stool thr (more content not included)... Normal [facility] .Auto Diffon 07-19-2023 Basophil, Absolute 0.1 10 3/mcL Normal 0.0-0.2 [facility] ([place]) Comment on above: Performed By: #### G FR, CBC, ADIFF, ANEU, CMP ####[address] [place], [place] [address] Basophils/100 WBC (Bld) 0.9 % Normal 0.0-2.5 [facility] ([place]) Comment on above: Performed By: #### G FR, CBC, ADIFF, ANEU, CMP ####[address] [place], [place] [address] Eosinophil, Absolute 0.5 10 3/mcL High 0.0-0.4 [facility] ([place]) Comment on above: Performed By: #### G FR, CBC, ADIFF, ANEU, CMP ####[address] [place], [place] [address] Eosinophils/100 WBC (Bld) 5.7 % Normal 0.0-7.0 [facility] ([place]) Comment on above: Performed By: #### G FR, CBC, ADIFF, ANEU, CMP ####[address] [place], [place] [address] Lymphocyte, Absolute 2.2 10 3/mcL Normal 0.8-3.9 [facility] ([place]) Comment on above: Performed By: #### G FR, CBC, ADIFF, ANEU, CMP ####[address] [place], [place] [address] Lymphocytes/100 WBC (Bld) 26.6 % Normal 10.0-50.0 [facility] ([place]) Comment on above: Performed By: #### G FR, CBC, ADIFF, ANEU, CMP ####[address] [place], [place] [address] Monocyte, Absolute 1.0 10 3/mcL Normal 0.2-1.0 [facility] ([place]) Comment on above: Performed By: #### G FR, CBC, ADIFF, ANEU, CMP ####[address] [place], [place] [address] Monocytes/100 WBC (Bld) 12.3 % Normal 1.7-13.0 [facility] ([place]) Comment on above: Performed By: #### G FR, CBC, ADIFF, ANEU, CMP ####[address] [place], [place] [address] Neutrophils/100 WBC (Bld) 54.5 % Normal 37.0-80.0 [facility] ([place]) Comment on above: Performed By: #### G FR, CBC, ADIFF, ANEU, CMP ####[address] [place], [place] [address] .GFRon 07-19-2023 GFR 101 ml/min/1.73sqm Normal [facility] ([place]) Comment on above: Result Comment: GFR Population [...] G FR, CBC, ADIFF, ANEU, CMP ####[address] [place], [place] [address] GFR Non- 84 ml/min/1.73sqm Normal [facility] ([place]) Comment on above: Result Comment: GFR Population [...] FR, CBC, ADIFF, ANEU, CMP ####[address] [place], [place] [address] .NEUABSon 07-19-2023 Neutrophil, Absolute 4.5 10 3/mcL Normal 2.9-6.2 [facility] ([place]) Comment on above: Performed By: #### G FR, CBC, ADIFF, ANEU, CMP ####[address] [place], [place] [address] CBCon 07-19-2023 Erythrocyte distribution width (RBC) [Ratio] 13.7 % Normal 11.5-14.5 [facility] ([place]) Comment on above: Performed By: #### G FR, CBC, ADIFF, ANEU, CMP ####[address] [place], [place] [address] Hematocrit (Bld) [Volume fraction] 32.8 % Low 42.0-52.0 [facility] ([place]) Comment on above: Performed By: #### G FR, CBC, ADIFF, ANEU, CMP ####[address] [place], [place] [address] Hgb 11.2 G/dL Low 14.0-18.0 [facility] ([place]) Comment on above: Performed By: #### G FR, CBC, ADIFF, ANEU, CMP ####[address] [place], [place] [address] MCH (RBC) [Entitic mass] 28.3 pg Normal 27.0-31.2 [facility] ([place]) Comment on above: Performed By: #### G FR, CBC, ADIFF, ANEU, CMP ####[address] [place], [place] [address] MCHC 34.1 G/dL Normal 31.8-35.4 [facility] ([place]) Comment on above: Performed By: #### G FR, CBC, ADIFF, ANEU, CMP ####[address] [place], [place] [address] MCV (RBC) [Entitic vol] 82.9 fL Normal 80.0-94.0 [facility] ([place]) Comment on above: Performed By: #### G FR, CBC, ADIFF, ANEU, CMP ####[address] [place], [place] [address] Platelet 243 10 3/mcL Normal 130-400 [facility] ([place]) Comment on above: Performed By: #### G FR, CBC, ADIFF, ANEU, CMP ####[address] [place], [place] [address] Platelet mean volume (Bld) [Entitic vol] 8.3 fL Normal 7.4-10.4 [facility] ([place]) Comment on above: Performed By: #### G FR, CBC, ADIFF, ANEU, CMP ####[address] [place], [place] [address] RBC 3.95 10 6/mcL Low 4.04-6.13 [facility] ([place]) Comment on above: Performed By: #### Luisa FR, CBC, ADIFF, ANEU, CMP ####[address] [place], [place] [address] WBC 8.2 10 3/mcL Normal 4.6-10.8 [facility] ([place]) Comment on above: Performed By: #### Luisa FR, CBC, ADIFF, ANEU, CMP ####[address] [place], [place] [address] CMPon 07-19-2023 Albumin Level 3.5 G/dL Normal 3.4-4.8 [facility] ([place]) Comment on above: Performed By: #### G FR, CBC, ADIFF, ANEU, CMP ####[address] [place], [place] [address] Albumin/Globulin [Mass ratio] 1.1 {ratio} Normal 1.1-2.5 [facility] ([place]) Comment on above: Performed By: #### G FR, CBC, ADIFF, ANEU, CMP ####[address] [place], [place] [address] ALP [Catalytic activity/Vol] 77 U/L Normal 40-135 [facility] ([place]) Comment on above: Performed By: #### G FR, CBC, ADIFF, ANEU, CMP ####[address] [place], [place] [address] ALT [Catalytic activity/Vol] 23 U/L Normal 16-63 [facility] ([place]) Comment on above: Performed By: #### G FR, CBC, ADIFF, ANEU, CMP ####[address] [place], [place] [address] AST [Catalytic activity/Vol] 20 U/L Normal 10-40 [facility] ([place]) Comment on above: Performed By: #### G FR, CBC, ADIFF, ANEU, CMP ####[address] [place], [place] [address] Bili Total 0.4 mg/dL Normal 0.2-1.0 [facility] ([place]) Comment on above: Result Comment: Use of this assay is not recommended for patients undergoing treatment with eltrombopag due to the potential for falsely elevated results. Performed By: #### G FR, CBC, ADIFF, ANEU, CMP ####[address] [place], [place] [address] BUN/Creatinine Ratio 19 ratio Normal 7-27 [facility] ([place]) Comment on above: Performed By: #### G FR, CBC, ADIFF, ANEU, CMP ####[address] [place], [place] [address] Calcium [Mass/Vol] 9.0 mg/dL Normal 8.4-10.2 [facility] ([place]) Comment on above: Performed By: #### G FR, CBC, ADIFF, ANEU, CMP ####[address] [place], [place] [address] Chloride [Moles/Vol] 102 mmol/L Normal 98-107 [facility] ([place]) Comment on above: Performed By: #### G FR, CBC, ADIFF, ANEU, CMP ####[address] [place], [place] [address] CO2 [Moles/Vol] 29 mmol/L Normal 23-31 [facility] ([place]) Comment on above: Performed By: #### G FR, CBC, ADIFF, ANEU, CMP ####[address] [place], [place] [address] Creatinine [Mass/Vol] 0.88 mg/dL Normal 0.70-1.30 [facility] ([place]) Comment on above: Performed By: #### G FR, CBC, ADIFF, ANEU, CMP ####[address] [place], [place] [address] Electrolyte Balance 8.0 mEq/L Normal 4.0-15.0 [facility] ([place]) Comment on above: Performed By: #### G FR, CBC, ADIFF, ANEU, CMP ####[address] [place], [place] [address] Globulin 3.1 G/dL Normal [facility] ([place]) Comment on above: Performed By: #### G FR, CBC, ADIFF, ANEU, CMP ####[address] [place], [place] [address] Glucose [Mass/Vol] 157 mg/dL High 83-110 [facility] ([place]) Comment on above: Performed By: #### G FR, CBC, ADIFF, ANEU, CMP ####[address] [place], [place] [address] Potassium [Moles/Vol] 4.2 mmol/L Normal 3.5-5.1 [facility] ([place]) Comment on above: Performed By: #### G FR, CBC, ADIFF, ANEU, CMP ####[address] [place], [place] [address] Sodium [Moles/Vol] 139 mmol/L Normal 136-145 [facility] ([place]) Comment on above: Performed By: #### G FR, CBC, ADIFF, ANEU, CMP ####[address] [place], [place] [address] Total Protein 6.6 G/dL Normal 6.4-8.2 [facility] ([place]) Comment on above: Performed By: #### G FR, CBC, ADIFF, ANEU, CMP ####[address] [address] Urea nitrogen [Mass/Vol] 17 mg/dL Normal 7-18 [facility] ([place]) Comment on above: Performed By: #### G FR, CBC, ADIFF, ANEU, CMP ####[address] [address] .Auto Diffon 07-07-2023 Basophil, Absolute 0.1 10 3/mcL Normal 0.0-0.3 [facility] ([place]) Comment on above: Performed By: #### C BC, MG, ANEU, CMP, ADIFF, GFR ####[address] [address] Basophils/100 WBC (Bld) 2.0 % Normal 0.0-2.5 [facility] ([place]) Comment on above: Performed By: #### C BC, MG, ANEU, CMP, ADIFF, GFR ####[address] [address] Eosinophil, Absolute 0.3 10 3/mcL Normal 0.0-0.7 [facility] ([place]) Comment on above: Performed By: #### C BC, MG, ANEU, CMP, ADIFF, GFR ####[address] [address] Eosinophils/100 WBC (Bld) 5.4 % Normal 0.0-6.0 [facility] ([place]) Comment on above: Performed By: #### C BC, MG, ANEU, CMP, ADIFF, GFR ####[address] [address] Lymphocyte, Absolute 1.4 10 3/mcL Normal 0.9-4.3 [facility] ([place]) Comment on above: Performed By: #### C BC, MG, ANEU, CMP, ADIFF, GFR ####[address] [address] Lymphocytes/100 WBC (Bld) 21.9 % Normal 20.0-40.0 [facility] ([place]) Comment on above: Performed By: #### C BC, MG, ANEU, CMP, ADIFF, GFR ####[address] [address] Monocyte, Absolute 0.6 10 3/mcL Normal 0.1-1.4 [facility] ([place]) Comment on above: Performed By: #### C BC, MG, ANEU, CMP, ADIFF, GFR ####[address] [address] Monocytes/100 WBC (Bld) 9.8 % Normal 2.0-13.0 [facility] ([place]) Comment on above: Performed By: #### C BC, MG, ANEU, CMP, ADIFF, GFR ####[address] [address] Neutrophils/100 WBC (Bld) 60.9 % Normal 50.0-75.0 [facility] ([place]) Comment on above: Performed By: #### C BC, MG, ANEU, CMP, ADIFF, GFR ####[address] [address] .GFRon 07-07-2023 GFR Non- >60 Normal [facility] ([place]) Comment on above: Result Comment: GFR Population [...] C BC, MG, ANEU, CMP, ADIFF, GFR ####[address] [address] GFR >60 Normal [facility] ([place]) Comment on above: Result Comment: GFR Population [...] C BC, MG, ANEU, CMP, ADIFF, GFR ####[address] [address] .NEUABSon 07-07-2023 Neutrophil, Absolute 3.8 10 3/mcL Normal 2.3-8.1 [facility] ([place]) Comment on above: Performed By: #### C BC, MG, ANEU, CMP, ADIFF, GFR ####[place] [address] CBCon 07-07-2023 Erythrocyte distribution width (RBC) [Ratio] 13.2 % Normal 11.5-15.5 [facility] ([place]) Comment on above: Performed By: #### C BC, MG, ANEU, CMP, ADIFF, GFR ####[place] [address] Hematocrit (Bld) [Volume fraction] 29.1 % Low 40.0-52.0 [facility] ([place]) Comment on above: Performed By: #### C BC, MG, ANEU, CMP, ADIFF, GFR ####[place] [address] Hgb 9.9 G/dL Low 13.0-17.5 [facility] ([place]) Comment on above: Performed By: #### C BC, MG, ANEU, CMP, ADIFF, GFR ####[place] [address] MCH (RBC) [Entitic mass] 29.6 pg Normal 27.0-33.0 [facility] ([place]) Comment on above: Performed By: #### C BC, MG, ANEU, CMP, ADIFF, GFR ####[place] [address] MCHC 34.2 G/dL Normal 32.0-36.0 [facility] ([place]) Comment on above: Performed By: #### C BC, MG, ANEU, CMP, ADIFF, GFR ####[place] [address] MCV (RBC) [Entitic vol] 86.5 fL Normal 81.0-100.0 [facility] ([place]) Comment on above: Performed By: #### C BC, MG, ANEU, CMP, ADIFF, GFR ####[place] [address] Platelet 207 10 3/mcL Normal 150-450 [facility] ([place]) Comment on above: Performed By: #### C BC, MG, ANEU, CMP, ADIFF, GFR ####[place] [address] Platelet mean volume (Bld) [Entitic vol] 8.5 fL Normal 6.4-10.5 [facility] ([place]) Comment on above: Performed By: #### C BC, MG, ANEU, CMP, ADIFF, GFR ####[place] [address] RBC 3.36 10 6/mcL Low 4.50-6.00 [facility] ([place]) Comment on above: Performed By: #### C BC, MG, ANEU, CMP, ADIFF, GFR ####[place] [address] WBC 6.2 10 3/mcL Normal 4.5-10.8 [facility] ([place] Comment on above: Performed By: #### C BC, MG, ANEU, CMP, ADIFF, GFR ####[place] [address] CMPon 07-07-2023 Albumin Level 3.1 G/dL Low 3.2-4.8 [facility] ([place]) Comment on above: Performed By: #### C BC, MG, ANEU, CMP, ADIFF, GFR ####[place] [address] Albumin/Globulin [Mass ratio] 1.1 {ratio} Normal 0.9-1.6 [facility] ([place]) Comment on above: Performed By: #### C BC, MG, ANEU, CMP, ADIFF, GFR ####[address] [address] ALP [Catalytic activity/Vol] 57 U/L Normal 38-126 [facility] ([place]) Comment on above: Performed By: #### C BC, MG, ANEU, CMP, ADIFF, GFR ####[place] [address] ALT [Catalytic activity/Vol] 16 U/L Normal 12-55 [facility] ([place]) Comment on above: Performed By: #### C BC, MG, ANEU, CMP, ADIFF, GFR ####[place] [address] AST [Catalytic activity/Vol] 40 U/L High 8-34 [facility] ([place]) Comment on above: Performed By: #### C BC, MG, ANEU, CMP, ADIFF, GFR ####[place] [id number] Bili Total 0.50 mg/dL Normal 0.20-1.20 [facility] ([place]) Comment on above: Result Comment: Use of this assay is not recommended for patients undergoing treatment with eltrombopag due to the potential for falsely elevated results. Performed By: #### C BC, MG, ANEU, CMP, ADIFF, GFR ####[place] [address] BUN/Creatinine Ratio 16.1 ratio Normal 10.0-22.0 [facility] ([place]) Comment on above: Performed By: #### C BC, MG, ANEU, CMP, ADIFF, GFR ####[address] [address] Calcium [Mass/Vol] 8.5 mg/dL Low 8.7-10.4 [facility] ([place]) Comment on above: Performed By: #### C BC, MG, ANEU, CMP, ADIFF, GFR ####[address] [address] Chloride [Moles/Vol] 107 mmol/L Normal 98-110 [facility] ([place]) Comment on above: Performed By: #### C BC, MG, ANEU, CMP, ADIFF, GFR ####[address] [address] CO2 [Moles/Vol] 24 mmol/L Normal 22-32 [facility] ([place]) Comment on above: Performed By: #### C BC, MG, ANEU, CMP, ADIFF, GFR ####[place] [address] Creatinine [Mass/Vol] 0.87 mg/dL Normal 0.60-1.40 [facility] ([place]) Comment on above: Performed By: #### C BC, MG, ANEU, CMP, ADIFF, GFR ####[place] [address] Electrolyte Balance 7.0 mEq/L Normal 4.0-15.0 [facility] ([place]) Comment on above: Performed By: #### C BC, MG, ANEU, CMP, ADIFF, GFR ####[place] [address] Globulin 2.8 G/dL Normal 1.5-3.8 [facility] ([place]) Comment on above: Performed By: #### C BC, MG, ANEU, CMP, ADIFF, GFR ####[place] [address] Glucose [Mass/Vol] 137 mg/dL High 82-115 [facility] ([place]) Comment on above: Performed By: #### C BC, MG, ANEU, CMP, ADIFF, GFR ####[place] [address] Potassium [Moles/Vol] 3.7 mmol/L Normal 3.5-5.0 [facility] ([place]) Comment on above: Performed By: #### C BC, MG, ANEU, CMP, ADIFF, GFR ####[place] [address] Sodium [Moles/Vol] 138 mmol/L Normal 136-145 [facility] ([place]) Comment on above: Performed By: #### C BC, MG, ANEU, CMP, ADIFF, GFR ####[place] [address] [place] [address] Total Protein 5.9 G/dL Normal 5.7-8.2 [facility] ([place]) Comment on above: Result Comment: No te - New Reference Range in effect 19 Performed By: #### C BC, MG, ANEU, CMP, ADIFF, GFR ####[place] [address] [place] [address] Urea nitrogen [Mass/Vol] 14.0 mg/dL Normal 8.0-22.0 [facility] ([place]) Comment on above: Performed By: #### C BC, MG, ANEU, CMP, ADIFF, GFR ####[facility] [place] [place] [address] LABORATORYOrdered By: Gerry Browning on 07-07-2023 Blood Glucose Testing Reason Routine (07/07/23 7:59 AM) [facility] Glucose [Mass/Vol] 125 mg/dL High 82 - 115 mg/dL [facility] LABORATORYOrdered By: SYSTEM SYSTEM on 07-07-2023 Albumin [...] 07-07-2023 Magnesium [Mass/Vol] 2.0 mg/dL Normal 1.6-2.4 [facility] ([place]) Comment on above: Performed By: #### C BC, MG, ANEU, CMP, ADIFF, GFR ####[address] [address] Magnesium [Mass/Vol] 2.0 mg/dL Normal 1.6-2.4 [facility] ([place]) Comment on above: Performed By: #### L IPID, GFR, A1C, CMP #### [address] [address] .Auto Diffon 07-06-2023 Basophil, Absolute 0.1 10 3/mcL Normal 0.0-0.3 [facility] ([place]) Comment on above: Performed By: #### L IPID, GFR, A1C, CMP #### Samy [address] [address] Basophils/100 WBC (Bld) 1.3 % Normal 0.0-2.5 [facility] ([place]) Comment on above: Performed By: #### L IPID, GFR, A1C, CMP #### [address] [address] Eosinophil, Absolute 0.4 10 3/mcL Normal 0.0-0.7 [facility] ([place]) Comment on above: Performed By: #### L IPID, GFR, A1C, CMP #### [address] [address] Eosinophils/100 WBC (Bld) 5.4 % Normal 0.0-6.0 [facility] ([place]) Comment on above: Performed By: #### L IPID, GFR, A1C, CMP #### [address] [address] Lymphocyte, Absolute 1.4 10 3/mcL Normal 0.9-4.3 [facility] ([place]) Comment on above: Performed By: #### L IPID, GFR, A1C, CMP #### [address] [address] Lymphocytes/100 WBC (Bld) 20.2 % Normal 20.0-40.0 [facility] ([place]) Comment on above: Performed By: #### L IPID, GFR, A1C, CMP #### [address] [address] Monocyte, Absolute 0.6 10 3/mcL Normal 0.1-1.4 [facility] ([place]) Comment on above: Performed By: #### L IPID, GFR, A1C, CMP #### [address] [address] Monocytes/100 WBC (Bld) 9.1 % Normal 2.0-13.0 [facility] ([place]) Comment on above: Performed By: #### L IPID, GFR, A1C, CMP #### [address] [address] Neutrophils/100 WBC (Bld) 64.0 % Normal 50.0-75.0 [facility] ([place]) Comment on above: Performed By: #### L IPID, GFR, A1C, CMP #### [address] [address] .GFRon 07-06-2023 GFR >60 Normal [facility] ([place]) Comment on above: Result Comment: GFR Population [...] #### L IPID, GFR, A1C, CMP #### [address] [address] GFR Non- >60 Normal [facility] ([place]) Comment on above: Result Comment: GFR Population [...] #### L IPID, GFR, A1C, CMP #### [address] [address] .NEUABSon 07-06-2023 Neutrophil, Absolute 4.4 10 3/mcL Normal 2.3-8.1 [facility] ([place]) Comment on above: Performed By: #### L IPID, GFR, A1C, CMP #### [address] [address] CBCon 07-06-2023 Erythrocyte distribution width (RBC) [Ratio] 13.0 % Normal 11.5-15.5 [facility] ([place]) Comment on above: Performed By: #### L IPID, GFR, A1C, CMP #### [address] [address] Hematocrit (Bld) [Volume fraction] 30.1 % Low 40.0-52.0 [facility] ([place]) Comment on above: Performed By: #### L IPID, GFR, A1C, CMP #### [address] [address] Hgb 10.3 G/dL Low 13.0-17.5 [facility] ([place]) Comment on above: Performed By: #### L IPID, GFR, A1C, CMP #### [address] [address] MCH (RBC) [Entitic mass] 29.7 pg Normal 27.0-33.0 [facility] ([place]) Comment on above: Performed By: #### L IPID, GFR, A1C, CMP #### [address] [address] MCHC 34.3 G/dL Normal 32.0-36.0 [facility] ([place]) Comment on above: Performed By: #### L IPID, GFR, A1C, CMP #### [address] [address] MCV (RBC) [Entitic vol] 86.8 fL Normal 81.0-100.0 [facility] ([place]) Comment on above: Performed By: #### L IPID, GFR, A1C, CMP #### [address] [address] Platelet 215 10 3/mcL Normal 150-450 [facility] ([place]) Comment on above: Performed By: #### L IPID, GFR, A1C, CMP #### [address] [address] Platelet mean volume (Bld) [Entitic vol] 8.3 fL Normal 6.4-10.5 [facility] ([place]) Comment on above: Performed By: #### L IPID, GFR, A1C, CMP #### [address] [address] RBC 3.47 10 6/mcL Low 4.50-6.00 [facility] ([place]) Comment on above: Performed By: #### L IPID, GFR, A1C, CMP #### [address] [address] WBC 6.9 10 3/mcL Normal 4.5-10.8 [facility] ([place]) Comment on above: Performed By: #### L IPID, GFR, A1C, CMP #### [address] [address] CMPon 07-06-2023 Albumin Level 3.0 G/dL Low 3.2-4.8 [facility] ([place]) Comment on above: Performed By: #### L IPID, GFR, A1C, CMP #### [address] [address] Albumin/Globulin [Mass ratio] 1.1 {ratio} Normal 0.9-1.6 [facility] ([place]) Comment on above: Performed By: #### L IPID, GFR, A1C, CMP #### [address] [address] ALP [Catalytic activity/Vol] 56 U/L Normal 38-126 [facility] ([place]) Comment on above: Performed By: #### L IPID, GFR, A1C, CMP #### [address] [address] ALT [Catalytic activity/Vol] 10 U/L Low 12-55 [facility] ([place]) Comment on above: Performed By: #### L IPID, GFR, A1C, CMP #### [address] [address] AST [Catalytic activity/Vol] 26 U/L Normal 8-34 [facility] ([place]) Comment on above: Performed By: #### L IPID, GFR, A1C, CMP #### [address] [address] Bili Total 0.50 mg/dL Normal 0.20-1.20 [facility] ([place]) Comment on above: Result Comment: Use of this assay is not recommended for patients undergoing treatment with eltrombopag due to the potential for falsely elevated results. Performed By: #### L IPID, GFR, A1C, CMP #### [place] [address] BUN/Creatinine Ratio 15.8 ratio Normal 10.0-22.0 [facility] ([place]) Comment on above: Performed By: #### L IPID, GFR, A1C, CMP #### [place] [id number] Calcium [Mass/Vol] 8.6 mg/dL Low 8.7-10.4 [facility] ([place]) Comment on above: Performed By: #### L IPID, GFR, A1C, CMP #### [address] [address] Chloride [Moles/Vol] 109 mmol/L Normal 98-110 [facility] ([place]) Comment on above: Performed By: #### L IPID, GFR, A1C, CMP #### [address] [address] CO2 [Moles/Vol] 25 mmol/L Normal 22-32 [facility] ([place]) Comment on above: Performed By: #### L IPID, GFR, A1C, CMP #### [address] [address] Creatinine [Mass/Vol] 0.95 mg/dL Normal 0.60-1.40 [facility] ([place]) Comment on above: Performed By: #### L IPID, GFR, A1C, CMP #### [place] [id number] Electrolyte Balance 5.0 mEq/L Normal 4.0-15.0 [facility] ([place]) Comment on above: Performed By: #### L IPID, GFR, A1C, CMP #### [address] [address] Globulin 2.8 G/dL Normal 1.5-3.8 [facility] ([place]) Comment on above: Performed By: #### L IPID, GFR, A1C, CMP #### [address] [address] Glucose [Mass/Vol] 102 mg/dL Normal 82-115 [facility] ([place]) Comment on above: Performed By: #### L IPID, GFR, A1C, CMP #### [address] [address] Potassium [Moles/Vol] 3.6 mmol/L Normal 3.5-5.0 [facility] ([place]) Comment on above: Performed By: #### L IPID, GFR, A1C, CMP #### [address] [address] Sodium [Moles/Vol] 139 mmol/L Normal 136-145 [facility] ([place]) Comment on above: Performed By: #### L IPID, GFR, A1C, CMP #### [address] [address] Total Protein 5.8 G/dL Normal 5.7-8.2 [facility] ([place]) Comment on above: Result Comment: No te - New Reference Range in effect 19 Performed By: #### L IPID, GFR, A1C, CMP #### [address] [address] Urea nitrogen [Mass/Vol] 15.0 mg/dL Normal 8.0-22.0 [facility] ([place]) Comment on above: Performed By: #### L IPID, GFR, A1C, CMP #### [address] [address] LABORATORYOrdered By: Luciano Ruiz on 07-06-2023 Blood Glucose Testing Reason Routine (07/06/23 9:13 PM) [facility] Glucose [Mass/Vol] 174 mg/dL High 82 - 115 mg/dL [facility] LABORATORYOrdered By: Mara Shook on 07-06-2023 Blood Glucose Testing Reason Routine (07/06/23 3:49 PM) [facility] Glucose [Mass/Vol] 107 mg/dL Normal 82 - 115 mg/dL [facility] LABORATORYOrdered By: Yappn SYSTEM on 07-06-2023 Albumin BCP dye [Mass/Vol] [...] (S/P/Bld) [Vol rate/Area] ml/min/1.73sqm Invalid Interpretation Code [facility] Comment on above: Interpretive Data: GFR [...] (S/P/Bld) [Vol rate/Area] ml/min/1.73sqm Invalid Interpretation Code [facility] Comment on above: Interpretive Data: GFR [...] 07-06-2023 Magnesium [Mass/Vol] 2.0 mg/dL Normal 1.6-2.4 [facility] ([place]) Comment on above: Performed By: #### L IPID, GFR, A1C, CMP #### [address] [address] Magnesium [Mass/Vol] 2.1 mg/dL Normal 1.6-2.4 [facility] ([place]) Comment on above: Performed By: #### L IPID, GFR, A1C, CMP #### [address] [address] .Auto Diffon 07-05-2023 Basophil, Absolute 0.1 10 3/mcL Normal 0.0-0.3 [facility] ([place]) Comment on above: Performed By: #### L IPID, GFR, A1C, CMP #### [address] [address] Basophils/100 WBC (Bld) 1.2 % Normal 0.0-2.5 [facility] ([place]) Comment on above: Performed By: #### L IPID, GFR, A1C, CMP #### [address] [address] Eosinophil, Absolute 0.4 10 3/mcL Normal 0.0-0.7 [facility] ([place]) Comment on above: Performed By: #### L IPID, GFR, A1C, CMP #### [address] [address] Eosinophils/100 WBC (Bld) 5.6 % Normal 0.0-6.0 [facility] ([place]) Comment on above: Performed By: #### L IPID, GFR, A1C, CMP #### [address] [address] Lymphocyte, Absolute 1.6 10 3/mcL Normal 0.9-4.3 [facility] ([place]) Comment on above: Performed By: #### L IPID, GFR, A1C, CMP #### [address] [address] Lymphocytes/100 WBC (Bld) 21.6 % Normal 20.0-40.0 [facility] ([place]) Comment on above: Performed By: #### L IPID, GFR, A1C, CMP #### [address] [address] Monocyte, Absolute 0.6 10 3/mcL Normal 0.1-1.4 [facility] ([place]) Comment on above: Performed By: #### L IPID, GFR, A1C, CMP #### [address] [address] Monocytes/100 WBC (Bld) 8.7 % Normal 2.0-13.0 [facility] ([place]) Comment on above: Performed By: #### L IPID, GFR, A1C, CMP #### [address] [address] Neutrophils/100 WBC (Bld) 62.9 % Normal 50.0-75.0 [facility] ([place]) Comment on above: Performed By: #### L IPID, GFR, A1C, CMP #### [address] [address] .GFRon 07-05-2023 GFR >60 Normal [facility] ([place]) Comment on above: Result Comment: GFR Population [...] #### L IPID, GFR, A1C, CMP #### [address] [address] GFR Non- >60 Normal [facility] ([place]) Comment on above: Result Comment: GFR Population [...] #### L IPID, GFR, A1C, CMP #### [address] [address] .NEUABSon 07-05-2023 Neutrophil, Absolute 4.6 10 3/mcL Normal 2.3-8.1 [facility] ([place]) Comment on above: Performed By: #### L IPID, GFR, A1C, CMP #### [address] [address] CBCon 07-05-2023 Erythrocyte distribution width (RBC) [Ratio] 13.2 % Normal 11.5-15.5 [facility] ([place]) Comment on above: Performed By: #### A COLEEN, CMP, ADIFF, GFR, MG, CBC #### [address] [address] Hematocrit (Bld) [Volume fraction] 30.1 % Low 40.0-52.0 [facility] ([place]) Comment on above: Performed By: #### A COLEEN, CMP, ADIFF, GFR, MG, CBC #### [place] [address] Hgb 10.2 G/dL Low 13.0-17.5 [facility] ([place]) Comment on above: Performed By: #### A COLEEN, CMP, ADIFF, GFR, MG, CBC #### [place] [address] MCH (RBC) [Entitic mass] 29.3 pg Normal 27.0-33.0 [facility] ([place]) Comment on above: Performed By: #### A COLEEN, CMP, ADIFF, GFR, MG, CBC #### [place] [address] MCHC 33.8 G/dL Normal 32.0-36.0 [facility] ([place]) Comment on above: Performed By: #### A COLEEN, CMP, ADIFF, GFR, MG, CBC #### [place] [address] MCV (RBC) [Entitic vol] 86.7 fL Normal 81.0-100.0 [facility] ([place]) Comment on above: Performed By: #### A COLEEN, CMP, ADIFF, GFR, MG, CBC #### [place] [address] Platelet 215 10 3/mcL Normal 150-450 [facility] ([place]) Comment on above: Performed By: #### A COLEEN, CMP, ADIFF, GFR, MG, CBC #### [place] [address] Platelet mean volume (Bld) [Entitic vol] 8.1 fL Normal 6.4-10.5 [facility] ([place]) Comment on above: Performed By: #### A COLEEN, CMP, ADIFF, GFR, MG, CBC #### [place] [address] RBC 3.48 10 6/mcL Low 4.50-6.00 [facility] ([place]) Comment on above: Performed By: #### A COLEEN, CMP, ADIFF, GFR, MG, CBC #### [address] [address] WBC 7.4 10 3/mcL Normal 4.5-10.8 [facility] ([place]) Comment on above: Performed By: #### A COLEEN, CMP, ADIFF, GFR, MG, CBC #### [address] [address] CMPon 07-05-2023 Albumin Level 3.0 G/dL Low 3.2-4.8 [facility] ([place]) Comment on above: Performed By: #### L IPID, GFR, A1C, CMP #### [address] [address] Albumin/Globulin [Mass ratio] 1.1 {ratio} Normal 0.9-1.6 [facility] ([place]) Comment on above: Performed By: #### L IPID, GFR, A1C, CMP #### [address] [address] ALP [Catalytic activity/Vol] 54 U/L Normal 38-126 [facility] ([place]) Comment on above: Performed By: #### L IPID, GFR, A1C, CMP #### [address] [address] ALT [Catalytic activity/Vol] 8 U/L Low 12-55 [facility] ([place]) Comment on above: Performed By: #### L IPID, GFR, A1C, CMP #### [address] [address] AST [Catalytic activity/Vol] 17 U/L Normal 8-34 [facility] ([place]) Comment on above: Performed By: #### L IPID, GFR, A1C, CMP #### [address] [address] Bili Total 0.50 mg/dL Normal 0.20-1.20 [facility] ([place]) Comment on above: Result Comment: Use of this assay is not recommended for patients undergoing treatment with eltrombopag due to the potential for falsely elevated results. Performed By: #### L IPID, GFR, A1C, CMP #### [address] [address] BUN/Creatinine Ratio 12.1 ratio Normal 10.0-22.0 [facility] ([place]) Comment on above: Performed By: #### L IPID, GFR, A1C, CMP #### [address] [address] Calcium [Mass/Vol] 8.7 mg/dL Normal 8.7-10.4 [facility] ([place]) Comment on above: Performed By: #### L IPID, GFR, A1C, CMP #### [place] [id number] Chloride [Moles/Vol] 107 mmol/L Normal 98-110 [facility] ([place]) Comment on above: Performed By: #### L IPID, GFR, A1C, CMP #### [place] [id number] CO2 [Moles/Vol] 26 mmol/L Normal 22-32 [facility] ([place]) Comment on above: Performed By: #### L IPID, GFR, A1C, CMP #### [address] [address] Creatinine [Mass/Vol] 0.91 mg/dL Normal 0.60-1.40 [facility] ([place] Comment on above: Performed By: #### L IPID, GFR, A1C, CMP #### [address] [address] Electrolyte Balance 7.0 mEq/L Normal 4.0-15.0 [facility] ([place]) Comment on above: Performed By: #### L IPID, GFR, A1C, CMP #### [address] [address] Globulin 2.7 G/dL Normal 1.5-3.8 [facility] ([place]) Comment on above: Performed By: #### L IPID, GFR, A1C, CMP #### [address] [address] Glucose [Mass/Vol] 127 mg/dL High 82-115 [facility] ([place] Comment on above: Performed By: #### L IPID, GFR, A1C, CMP #### [address] [address] Potassium [Moles/Vol] 3.6 mmol/L Normal 3.5-5.0 [facility] ([place]) Comment on above: Performed By: #### L IPID, GFR, A1C, CMP #### [address] [address] Sodium [Moles/Vol] 140 mmol/L Normal 136-145 [facility] ([place]) Comment on above: Performed By: #### L IPID, GFR, A1C, CMP #### [address] [address] Total Protein 5.7 G/dL Normal 5.7-8.2 [facility] ([place]) Comment on above: Result Comment: No te - New Reference Range in effect 19 Performed By: #### L IPID, GFR, A1C, CMP #### [address] [address] Urea nitrogen [Mass/Vol] 11.0 mg/dL Normal 8.0-22.0 [facility] ([place]) Comment on above: Performed By: #### L IPID, GFR, A1C, CMP #### [address] [address] LABORATORYOrdered By: SYSTEM SYSTEM on 07-05-2023 Albumin [...] 07-05-2023 Magnesium [Mass/Vol] 2.0 mg/dL Normal 1.6-2.4 [facility] ([place]) Comment on above: Performed By: #### L IPID, GFR, A1C, CMP #### Samy [address] [address] Magnesium [Mass/Vol] 2.0 mg/dL Normal 1.6-2.4 [facility] ([place]) Comment on above: Performed By: #### L IPID, GFR, A1C, CMP #### Samy [place] [id number] [place], [place] [address] .Auto Diffon 07-04-2023 Basophil, Absolute 0.1 10 3/mcL Normal 0.0-0.3 [facility] ([place]) Comment on above: Performed By: #### L IPID, GFR, A1C, CMP #### [address] [address] Basophils/100 WBC (Bld) 1.1 % Normal 0.0-2.5 [facility] ([place]) Comment on above: Performed By: #### L IPID, GFR, A1C, CMP #### [address] [address] Eosinophil, Absolute 0.4 10 3/mcL Normal 0.0-0.7 [facility] ([place]) Comment on above: Performed By: #### L IPID, GFR, A1C, CMP #### [address] [address] Eosinophils/100 WBC (Bld) 5.6 % Normal 0.0-6.0 [facility] ([place]) Comment on above: Performed By: #### L IPID, GFR, A1C, CMP #### [address] [address] Lymphocyte, Absolute 1.2 10 3/mcL Normal 0.9-4.3 [facility] ([place]) Comment on above: Performed By: #### L IPID, GFR, A1C, CMP #### [address] [address] Lymphocytes/100 WBC (Bld) 17.7 % Low 20.0-40.0 [facility] ([place]) Comment on above: Performed By: #### L IPID, GFR, A1C, CMP #### [address] [address] Monocyte, Absolute 0.6 10 3/mcL Normal 0.1-1.4 [facility] ([place]) Comment on above: Performed By: #### L IPID, GFR, A1C, CMP #### [address] [address] Monocytes/100 WBC (Bld) 8.6 % Normal 2.0-13.0 [facility] ([place]) Comment on above: Performed By: #### L IPID, GFR, A1C, CMP #### [address] [address] Neutrophils/100 WBC (Bld) 67.0 % Normal 50.0-75.0 [facility] ([place]) Comment on above: Performed By: #### L IPID, GFR, A1C, CMP #### Samy [address] [address] .GFRon 07-04-2023 GFR >60 Normal [facility] ([place]) Comment on above: Result Comment: GFR Population [...] #### L IPID, GFR, A1C, CMP #### [address] [address] GFR Non- >60 Normal [facility] ([place]) Comment on above: Result Comment: GFR Population [...] #### L IPID, GFR, A1C, CMP #### [address] [address] .NEUABSon 07-04-2023 Neutrophil, Absolute 4.7 10 3/mcL Normal 2.3-8.1 [facility] ([place]) Comment on above: Performed By: #### L IPID, GFR, A1C, CMP #### [address] [address] CBCon 07-04-2023 Erythrocyte distribution width (RBC) [Ratio] 13.1 % Normal 11.5-15.5 [facility] ([place]) Comment on above: Performed By: #### L IPID, GFR, A1C, CMP #### [address] [address] Hematocrit (Bld) [Volume fraction] 29.3 % Low 40.0-52.0 [facility] ([place]) Comment on above: Performed By: #### L IPID, GFR, A1C, CMP #### [address] [address] Hgb 9.9 G/dL Low 13.0-17.5 [facility] ([place]) Comment on above: Performed By: #### L IPID, GFR, A1C, CMP #### [address] [address] MCH (RBC) [Entitic mass] 29.3 pg Normal 27.0-33.0 [facility] ([place]) Comment on above: Performed By: #### L IPID, GFR, A1C, CMP #### [address] [address] MCHC 33.7 G/dL Normal 32.0-36.0 [facility] ([place]) Comment on above: Performed By: #### L IPID, GFR, A1C, CMP #### [address] [address] MCV (RBC) [Entitic vol] 87.0 fL Normal 81.0-100.0 [facility] ([place]) Comment on above: Performed By: #### L IPID, GFR, A1C, CMP #### [address] [address] Platelet 233 10 3/mcL Normal 150-450 [facility] ([place]) Comment on above: Performed By: #### L IPID, GFR, A1C, CMP #### [address] [address] Platelet mean volume (Bld) [Entitic vol] 7.9 fL Normal 6.4-10.5 [facility] ([place]) Comment on above: Performed By: #### L IPID, GFR, A1C, CMP #### [address] [address] RBC 3.37 10 6/mcL Low 4.50-6.00 [facility] ([place]) Comment on above: Performed By: #### L IPID, GFR, A1C, CMP #### [address] [address] WBC 7.0 10 3/mcL Normal 4.5-10.8 [facility] ([place]) Comment on above: Performed By: #### L IPID, GFR, A1C, CMP #### [address] [address] CMPon 07-04-2023 Albumin Level 2.9 G/dL Low 3.2-4.8 [facility] ([place]) Comment on above: Performed By: #### L IPID, GFR, A1C, CMP #### [address] [address] Albumin/Globulin [Mass ratio] 1.2 {ratio} Normal 0.9-1.6 [facility] ([place]) Comment on above: Performed By: #### L IPID, GFR, A1C, CMP #### [address] [address] ALP [Catalytic activity/Vol] 56 U/L Normal 38-126 [facility] ([place]) Comment on above: Performed By: #### L IPID, GFR, A1C, CMP #### [address] [address] ALT [Catalytic activity/Vol] 9 U/L Low 12-55 [facility] ([place]) Comment on above: Performed By: #### L IPID, GFR, A1C, CMP #### [address] [address] AST [Catalytic activity/Vol] 17 U/L Normal 8-34 [facility] ([place]) Comment on above: Performed By: #### L IPID, GFR, A1C, CMP #### [address] [address] Bili Total 0.50 mg/dL Normal 0.20-1.20 [facility] ([place]) Comment on above: Result Comment: Use of this assay is not recommended for patients undergoing treatment with eltrombopag due to the potential for falsely elevated results. Performed By: #### L IPID, GFR, A1C, CMP #### [address] [address] BUN/Creatinine Ratio 12.6 ratio Normal 10.0-22.0 [facility] ([place]) Comment on above: Performed By: #### L IPID, GFR, A1C, CMP #### [address] [address] Calcium [Mass/Vol] 8.6 mg/dL Low 8.7-10.4 [facility] ([place] Comment on above: Performed By: #### L IPID, GFR, A1C, CMP #### [address] [address] Chloride [Moles/Vol] 108 mmol/L Normal 98-110 [facility] ([place]) Comment on above: Performed By: #### L IPID, GFR, A1C, CMP #### [address] [address] CO2 [Moles/Vol] 27 mmol/L Normal 22-32 [facility] ([place]) Comment on above: Performed By: #### L IPID, GFR, A1C, CMP #### [address] [address] Creatinine [Mass/Vol] 0.87 mg/dL Normal 0.60-1.40 [facility] ([place] Comment on above: Performed By: #### L IPID, GFR, A1C, CMP #### [address] [address] Electrolyte Balance 7.0 mEq/L Normal 4.0-15.0 [facility] ([place]) Comment on above: Performed By: #### L IPID, GFR, A1C, CMP #### [address] [address] Globulin 2.5 G/dL Normal 1.5-3.8 [facility] ([place]) Comment on above: Performed By: #### L IPID, GFR, A1C, CMP #### [address] [address] Glucose [Mass/Vol] 122 mg/dL High 82-115 [facility] ([place] Comment on above: Performed By: #### L IPID, GFR, A1C, CMP #### [address] [address] Potassium [Moles/Vol] 4.0 mmol/L Normal 3.5-5.0 [facility] ([place] Comment on above: Performed By: #### L IPID, GFR, A1C, CMP #### [address] [address] Sodium [Moles/Vol] 142 mmol/L Normal 136-145 [facility] ([place] Comment on above: Performed By: #### L IPID, GFR, A1C, CMP #### [address] [address] Total Protein 5.4 G/dL Low 5.7-8.2 [facility] ([place]) Comment on above: Result Comment: No te - New Reference Range in effect 19 Performed By: #### L IPID, GFR, A1C, CMP #### [address] [address] Urea nitrogen [Mass/Vol] 11.0 mg/dL Normal 8.0-22.0 [facility] ([place]) Comment on above: Performed By: #### L IPID, GFR, A1C, CMP #### [address] [address] LABORATORYOrdered By: Jovany baljeet Dallin on 07-04-2023 [...] [Mass/Vol] 208 mg/dL High 50-199 [facility] ([place]) Comment on above: Result Comment: Chol esterol Reference Interval: Less than 200 Desirable 200-239 Borderline high risk 240 and above High risk Performed By: #### L IPID, GFR, A1C, CMP #### [address] [address] Cholesterol in HDL [Mass/Vol] 25 mg/dL Low 40-59 [facility] ([place]) Comment on above: Performed By: #### L IPID, GFR, A1C, CMP #### [address] [address] Cholesterol in LDL [Mass/Vol] 157 mg/dL High 0-129 [facility] ([place]) Comment on above: Performed By: #### L IPID, GFR, A1C, CMP #### [address] [address] Triglyceride [Mass/Vol] 130 mg/dL Normal 3-149 [facility] ([place]) Comment on above: Performed By: #### L IPID, GFR, A1C, CMP #### [address] [address] MGon 07-04-2023 Magnesium [Mass/Vol] 2.2 mg/dL Normal 1.6-2.4 [facility] ([place]) Comment on above: Performed By: #### L IPID, GFR, A1C, CMP #### [address] [address] [place] MYOCARDIAL SPECT STRESS/R ESTon 07-04-2023 AL MYOCARDIAL SPECT STRESS/REST ORIGINAL EXAMINATION: CARDIAC SPECT07/04/2023 [...] 07/04/2023 1:31:23 PM Ordering Provider: CHARLINE ROGERS [facility] ([place]) .GFRon 07-03-2023 GFR >60 Normal [facility] ([place]) Comment on above: Result Comment: GFR Population [...] #### L IPID, GFR, A1C, CMP #### [address] [address] GFR Non- >60 Normal [facility] ([place]) Comment on above: Result Comment: GFR Population [...] #### L IPID, GFR, A1C, CMP #### [address] [id number] A1Con 07-03-2023 HbA1c (Bld) [Mass fraction] 7.6 % High 4.0-6.0 [facility] ([place]) Comment on above: Performed By: #### L IPID, GFR, A1C, CMP #### [address] [id number] CMPon 07-03-2023 Albumin Level 3.2 G/dL Normal 3.2-4.8 [facility] ([place]) Comment on above: Performed By: #### L IPID, GFR, A1C, CMP #### [address] [id number] Albumin/Globulin [Mass ratio] 1.1 {ratio} Normal 0.9-1.6 [facility] ([place]) Comment on above: Performed By: #### L IPID, GFR, A1C, CMP #### [address] [address] ALP [Catalytic activity/Vol] 56 U/L Normal 38-126 [facility] ([place]) Comment on above: Performed By: #### L IPID, GFR, A1C, CMP #### [address] [address] ALT [Catalytic activity/Vol] 9 U/L Low 12-55 [facility] ([place]) Comment on above: Performed By: #### L IPID, GFR, A1C, CMP #### [address] [address] AST [Catalytic activity/Vol] 17 U/L Normal 8-34 [facility] ([place]) Comment on above: Performed By: #### L IPID, GFR, A1C, CMP #### [address] [address] Bili Total 0.50 mg/dL Normal 0.20-1.20 [facility] ([place]) Comment on above: Result Comment: Use of this assay is not recommended for patients undergoing treatment with eltrombopag due to the potential for falsely elevated results. Performed By: #### L IPID, GFR, A1C, CMP #### [address] [address] BUN/Creatinine Ratio 11.9 ratio Normal 10.0-22.0 [facility] ([place]) Comment on above: Performed By: #### L IPID, GFR, A1C, CMP #### [address] [address] Calcium [Mass/Vol] 8.9 mg/dL Normal 8.7-10.4 [facility] ([place]) Comment on above: Performed By: #### L IPID, GFR, A1C, CMP #### [address] [address] Chloride [Moles/Vol] 105 mmol/L Normal 98-110 [facility] ([place]) Comment on above: Performed By: #### L IPID, GFR, A1C, CMP #### [address] [address] CO2 [Moles/Vol] 28 mmol/L Normal 22-32 [facility] ([place]) Comment on above: Performed By: #### L IPID, GFR, A1C, CMP #### [address] [address] Creatinine [Mass/Vol] 0.84 mg/dL Normal 0.60-1.40 [facility] ([place]) Comment on above: Performed By: #### L IPID, GFR, A1C, CMP #### [address] [address] Electrolyte Balance 7.0 mEq/L Normal 4.0-15.0 [facility] ([place]) Comment on above: Performed By: #### L IPID, GFR, A1C, CMP #### [address] [address] Globulin 2.9 G/dL Normal 1.5-3.8 [facility] ([place]) Comment on above: Performed By: #### L IPID, GFR, A1C, CMP #### [address] [address] Glucose [Mass/Vol] 120 mg/dL High 82-115 [facility] ([place]) Comment on above: Performed By: #### L IPID, GFR, A1C, CMP #### [address] [address] Potassium [Moles/Vol] 3.2 mmol/L Low 3.5-5.0 [facility] ([place] Comment on above: Performed By: #### L IPID, GFR, A1C, CMP #### [address] [address] Sodium [Moles/Vol] 140 mmol/L Normal 136-145 [facility] ([place]) Comment on above: Performed By: #### L IPID, GFR, A1C, CMP #### [address] [address] Total Protein 6.1 G/dL Normal 5.7-8.2 [facility] ([place]) Comment on above: Result Comment: No te - New Reference Range in effect 19 Performed By: #### L IPID, GFR, A1C, CMP #### [place] [address] Urea nitrogen [Mass/Vol] 10.0 mg/dL Normal 8.0-22.0 [facility] ([place]) Comment on above: Performed By: #### L IPID, GFR, A1C, CMP #### [place] [address] Nolan 07-03-2023 Ferritin [Mass/Vol] 43.5 ng/mL Normal 26.0-388.0 [facility] ([place]) Comment on above: Performed By: #### L IPID, GFR, A1C, CMP #### [address] [address] FESon 07-03-2023 Iron [Mass/Vol] 32 ug/dL Low 65-175 [facility] ([place]) Comment on above: Performed By: #### L IPID, GFR, A1C, CMP #### [address] [address] Iron Sat 11 % Normal [facility] ([place]) Comment on above: Performed By: #### L IPID, GFR, A1C, CMP #### [address] [address] TIBC 298 mcg/dL Normal 250-500 [facility] ([place]) Comment on above: Performed By: #### L IPID, GFR, A1C, CMP #### [address] [address] LABORATORYOrdered By: SYSTEM SYSTEM on 07-03-2023 Troponin [...] 07-03-2023 Magnesium [Mass/Vol] 1.9 mg/dL Normal 1.6-2.4 [facility] ([place]) Comment on above: Performed By: #### L IPID, GFR, A1C, CMP #### [address] [address] TROPHSon 07-03-2023 Troponin I High Sensitivity 76.00 ng/L High 0.00-54.00 [facility] ([place]) Comment on above: Performed By: #### L IPID, GFR, A1C, CMP #### [address] [address] Troponin I High Sensitivity 78.00 ng/L High 0.00-54.00 [facility] ([place]) Comment on above: Performed By: #### L IPID, GFR, A1C, CMP #### [address] [address] TSHon 07-03-2023 TSH 4.676 mIU/mL Normal 0.550-4.780 [facility] ([place]) Comment on above: Result Comment: No te - New Reference Range in effect 19 Performed By: #### L IPID, GFR, A1C, CMP #### [address] [address] .Auto Diffon 07-02-2023 Basophil, Absolute 0.1 10 3/mcL Normal 0.0-0.3 [facility] ([place]) Comment on above: Performed By: #### L IPID, GFR, A1C, CMP #### [address] [address] Basophils/100 WBC (Bld) 0.6 % Normal 0.0-2.5 [facility] ([place]) Comment on above: Performed By: #### L IPID, GFR, A1C, CMP #### [address] [address] Eosinophil, Absolute 0.3 10 3/mcL Normal 0.0-0.7 [facility] ([place]) Comment on above: Performed By: #### L IPID, GFR, A1C, CMP #### [address] [address] Eosinophils/100 WBC (Bld) 3.2 % Normal 0.0-6.0 [facility] ([place]) Comment on above: Performed By: #### L IPID, GFR, A1C, CMP #### [address] [address] Lymphocyte, Absolute 1.5 10 3/mcL Normal 0.9-4.3 [facility] ([place]) Comment on above: Performed By: #### L IPID, GFR, A1C, CMP #### [address] [address] Lymphocytes/100 WBC (Bld) 14.9 % Low 20.0-40.0 [facility] ([place]) Comment on above: Performed By: #### L IPID, GFR, A1C, CMP #### [address] [address] Monocyte, Absolute 0.7 10 3/mcL Normal 0.1-1.4 [facility] ([place]) Comment on above: Performed By: #### L IPID, GFR, A1C, CMP #### [address] [address] Monocytes/100 WBC (Bld) 6.6 % Normal 2.0-13.0 [facility] ([place]) Comment on above: Performed By: #### L IPID, GFR, A1C, CMP #### [address] [address] Neutrophils/100 WBC (Bld) 74.7 % Normal 50.0-75.0 [facility] ([place]) Comment on above: Performed By: #### L IPID, GFR, A1C, CMP #### [address] [address] .GFRon 07-02-2023 GFR Non- >60 Normal [facility] ([place]) Comment on above: Result Comment: GFR Population [...] #### L IPID, GFR, A1C, CMP #### [address] [address] GFR >60 Normal [facility] ([place]) Comment on above: Result Comment: GFR Population [...] #### L IPID, GFR, A1C, CMP #### [address] [address] .MDWon 07-02-2023 Monocyte Distribution Width 18.82 Normal 0.00-20.00 [facility] ([place]) Comment on above: Result Comment: For ED adult patients suspected of sepsis, MDW<=20.0 does not rule out sepsis or risk of sepsis Performed By: #### L IPID, GFR, A1C, CMP #### [address] [address] .NEUABSon 07-02-2023 Neutrophil, Absolute 7.4 10 3/mcL Normal 2.3-8.1 [facility] ([place]) Comment on above: Performed By: #### L IPID, GFR, A1C, CMP #### [address] [address] BMPon 07-02-2023 BUN/Creatinine Ratio 14.1 ratio Normal 10.0-22.0 [facility] ([place]) Comment on above: Performed By: #### L IPID, GFR, A1C, CMP #### [address] [address] Calcium [Mass/Vol] 9.1 mg/dL Normal 8.7-10.4 [facility] ([place]) Comment on above: Performed By: #### L IPID, GFR, A1C, CMP #### [address] [address] Chloride [Moles/Vol] 104 mmol/L Normal 98-110 [facility] ([place]) Comment on above: Performed By: #### L IPID, GFR, A1C, CMP #### [address] [address] CO2 [Moles/Vol] 29 mmol/L Normal 22-32 [facility] ([place]) Comment on above: Performed By: #### L IPID, GFR, A1C, CMP #### [address] [address] Creatinine [Mass/Vol] 0.85 mg/dL Normal 0.60-1.40 [facility] ([place] Comment on above: Performed By: #### L IPID, GFR, A1C, CMP #### [address] [address] Electrolyte Balance 5.0 mEq/L Normal 4.0-15.0 [facility] ([place]) Comment on above: Performed By: #### L IPID, GFR, A1C, CMP #### [address] [address] Glucose [Mass/Vol] 212 mg/dL High 82-115 [facility] ([place] Comment on above: Performed By: #### L IPID, GFR, A1C, CMP #### [address] [address] Potassium [Moles/Vol] 3.5 mmol/L Normal 3.5-5.0 [facility] ([place] Comment on above: Performed By: #### L IPID, GFR, A1C, CMP #### [address] [address] Sodium [Moles/Vol] 138 mmol/L Normal 136-145 [facility] ([place] Comment on above: Performed By: #### L IPID, GFR, A1C, CMP #### [address] [address] Urea nitrogen [Mass/Vol] 12.0 mg/dL Normal 8.0-22.0 [facility] ([place]) Comment on above: Performed By: #### L IPID, GFR, A1C, CMP #### [address] [address] CBCon 07-02-2023 Erythrocyte distribution width (RBC) [Ratio] 13.1 % Normal 11.5-15.5 [facility] ([place]) Comment on above: Performed By: #### L IPID, GFR, A1C, CMP #### [address] [address] Hematocrit (Bld) [Volume fraction] 30.5 % Low 40.0-52.0 [facility] ([place]) Comment on above: Performed By: #### L IPID, GFR, A1C, CMP #### [place] [id number] Hgb 10.4 G/dL Low 13.0-17.5 [facility] ([place]) Comment on above: Performed By: #### L IPID, GFR, A1C, CMP #### [address] [address] MCH (RBC) [Entitic mass] 29.8 pg Normal 27.0-33.0 [facility] ([place]) Comment on above: Performed By: #### L IPID, GFR, A1C, CMP #### [place] [address] MCHC 34.0 G/dL Normal 32.0-36.0 [facility] ([place]) Comment on above: Performed By: #### L IPID, GFR, A1C, CMP #### [place] [id number] MCV (RBC) [Entitic vol] 87.5 fL Normal 81.0-100.0 [facility] ([place]) Comment on above: Performed By: #### L IPID, GFR, A1C, CMP #### [address] [address] Platelet 227 10 3/mcL Normal 150-450 [facility] ([place]) Comment on above: Performed By: #### L IPID, GFR, A1C, CMP #### [address] [address] Platelet mean volume (Bld) [Entitic vol] 8.4 fL Normal 6.4-10.5 [facility] ([place]) Comment on above: Performed By: #### L IPID, GFR, A1C, CMP #### [address] [address] RBC 3.48 10 6/mcL Low 4.50-6.00 [facility] ([place]) Comment on above: Performed By: #### L IPID, GFR, A1C, CMP #### [place] [id number] [place], [place] [address] WBC 9.9 10 3/mcL Normal 4.5-10.8 [facility] ([place]) Comment on above: Performed By: #### L IPID, GFR, A1C, CMP #### [place] [address] [place], [place] [address] CT ANGIOGRAPHY CHEST W/CONTR Josue 07-02-2023 CT [...] PM Ordering Provider: XIANG Garcia [facility] ([place]) DDHSon 07-02-2023 D-Dimer HS 2334 ng/mL D-DU High 0-230 [facility] ([place]) Comment on above: Result Comment: Dime r [...] be performed accordingly. Performed By: #### D [facility] #### [place] [address] LABORATORYOrdered By: Karen Chahal on 07-02-2023 Natriuretic [...] [Mass/Vol] 1012 pg/mL Normal 0-1800 [facility] ([place]) Comment on above: Result Comment: NT-p roBNP results of less than 300 pg/mL effectively rules out acute congestive heart failure with 99% negative predictive value. Performed By: #### L IPID, GFR, A1C, CMP #### [address] [address] TROPHSon 07-02-2023 Troponin I High Sensitivity 73.00 ng/L High 0.00-54.00 [facility] ([place]) Comment on above: Performed By: #### T AB ####[place] [address] Troponin I High Sensitivity 80.00 ng/L High 0.00-54.00 [facility] ([place]) Comment on above: Performed By: #### T AB ####[place] [id number] Troponin I High Sensitivity 66.00 ng/L High 0.00-54.00 [facility] ([place]) Comment on above: Performed By: #### L IPID, GFR, A1C, CMP #### [address] [address] UAon 07-02-2023 Color (U) Yellow Normal [facility] ([place]) Comment on above: Performed By: #### L IPID, GFR, A1C, CMP #### [address] [address] Glucose (U) [Mass/Vol] 100 mg/dL Abnormal Negative [facility] ([place]) Comment on above: Performed By: #### L IPID, GFR, A1C, CMP #### [address] [address] Ketones Ql (U) Negative Normal Neg-Trace [facility] ([place]) Comment on above: Performed By: #### L IPID, GFR, A1C, CMP #### [address] [address] UA Appear Clear Normal Clear [facility] ([place]) Comment on above: Performed By: #### L IPID, GFR, A1C, CMP #### [address] [address] UA Blood Negative Normal Neg-Trace [facility] ([place]) Comment on above: Performed By: #### L IPID, GFR, A1C, CMP #### [address] [address] UA Leuk Est Negative Normal Negative [facility] ([place]) Comment on above: Performed By: #### L IPID, GFR, A1C, CMP #### [address] [address] UA Nitrite Negative Normal Negative [facility] ([place]) Comment on above: Performed By: #### L IPID, GFR, A1C, CMP #### [address] [address] UA pH 6.5 Normal 5.0 - 8.0 [facility] ([place]) Comment on above: Performed By: #### L IPID, GFR, A1C, CMP #### [address] [address] UA Protein Negative Normal Negative [facility] ([place]) Comment on above: Performed By: #### L IPID, GFR, A1C, CMP #### [address] [address] UA Spec Grav 1.015 Normal 1.006-1.029 [facility] ([place]) Comment on above: Performed By: #### L IPID, GFR, A1C, CMP #### [address] [address] UA Specimen Type Clean Catch Normal [facility] ([place]) Comment on above: Performed By: #### L IPID, GFR, A1C, CMP #### [address] [address] UA Urobilinogen 1.0 E.U./dL Normal 0.2-1.0 [facility] ([place]) Comment on above: Performed By: #### L IPID, GFR, A1C, CMP #### [address] [address] Urobilinogen (U) [Mass/Vol] Negative Normal Neg-Trace [facility] ([place]) Comment on above: Performed By: #### L IPID, GFR, A1C, CMP #### [place] [id number] [place], [place] [address] XR CHEST 1 VIEWon 07-02-2023 XR CHEST [...] 07/02/2023 12:58:43 PM Ordering Provider: XIANG MOORE [facility] Patient Choice Patient Name: AZAR TRIPLETT Date of : 1945 [facility] 06-23-2023 [facility] Next Site of Care Admission Date: 06/19/2023 06:04 AM Patient Name: AZAR TRIPLETT Location: [address] Date of : 1945 ---- Placement Information ---- Referral Type:Detention/SNF - New Referral ID:-[id number] Provider Name:[facility] Address 1:[address] Phone Number: Address 2: Fax Number: City:[place] Selection Factors:Patient/Family Choice State:[facility] [place] [address] was entered int [facility] for the - [facility] per TCC request. Facility notified. [facility] [place] TCC tasked to follow over weekend. Patient's drain remains in place. No DC orders noted yet. Patient to dc to [facility]. TCC to follow. Jenn reached out to this TCC to ask facility if pt can dc to them with accordion drain in place. Awaiting response. Facility able to medically manage drain. Son to transport. Patient to dc to [facility] today. LOUIS, , son, community living specialist and facility all updated. FELIBERTO completed. [facility] Laboratory - Chemistry and C hemistry - challengeon 06-23-2023 Glucose [Mass/Vol] 298 mg/dL High 70 - 100 mg/dL [facility] Glucose [Mass/Vol] 197 mg/dL High 70 - 100 mg/dL [facility] No Panel Informationon 06-23 Interpretation and review of laboratory results Abnormal [facility] Performed by: [facility], [address] [place] [address] CLIA ID: [id number] [facility] Interpretation and review of laboratory results Abnormal [facility] Performed by: [facility], [address] [facility] [address] CLIA ID: [id number] [facility] Radiology Study observation (narrative) [facility] Radiology Study observation (narrative) [facility] Progress Noteon 06-23-2023 Progress Note Brace applied to patient and belongings gathered. Normal [facility] Progress Note Attempted to call report to [facility]. Normal [facility] Progress Note PHYSICAL THERAPY [facility] Treatment Note Name/MRN: Azar Triplett ([id number]) Date of : 1945 Age: 77 y.o. Room[facility]Bed: [facility] A Discharge Recommendation: 24 hour supervision or [...] FWW. Patient states he is going to long term upon discharge. Patient states he has hospital [...] laps on unit) Goals Patient Stated Goal: long term Encounter Problems Encounter Problems (Active) Balance Patient [...] Code Treatment Minutes: (tp) Diane Hood PTA [facility] [id number] 06-22-2023 [id number] Spoke with pt and family member, Perry, at bedside. Pt and family decided they would prefer SNF placement for short time prior to dc home. Perry stated this is already approved through their insurance fund. Denied DME needs. TCC aware and working on referrals. [facility] CARECOORDon 06-22-[address] Fulton patient drain output is too high and that makes patient not ready for discharge. TCC to assist and follow as needed. [facility] IDNon 06-22-2023 IDN Problem: Pain - Adul [...] status, cognitive ability or social support system [facility] IDN Problem: Pain - Adul t Goal: Verbalizes/displays adequate comfort level or baseline comfort level Outcome: Progressing Problem: Safety - Adult Goal: Free from fall injury Outcome: Progressing Problem: Discharge Planning Goal: Discharge to home or other facility with appropriate resources Outcome: Progressing Normal [facility] - Chemistry and C hemistry - challengeon 06-22-2023 Glucose [Mass/Vol] 224 mg/dL High 70 - 100 mg/dL [facility] Glucose [Mass/Vol] 243 mg/dL High 70 - 100 mg/dL [facility] Glucose [Mass/Vol] 227 mg/dL High 70 - 100 mg/dL [facility] Glucose [Mass/Vol] 152 mg/dL High 70 - 100 mg/dL [facility] No Panel Informationon 06-22 Interpretation and review of laboratory results Abnormal [facility] Performed by: [facility], [address] [place] [address], [facility] [address] CLIA ID: [id number] [facility] [employer] [facility] Interpretation and review of laboratory results Abnormal [facility] Performed by: [facility], [address] [place] [address], [facility] [address] CLIA ID: [id number] [facility] Interpretation and review of laboratory results Abnormal [facility] Performed by: [facility], [address] [place] [address], [facility] [address] CLIA ID: [id number] [facility] Interpretation and review of laboratory results Abnormal [facility] Performed by: [facility], [address] [place] [address], [facility] [address] CLIA ID: [id number] [facility] Radiology Study observation (narrative) [facility] Radiology Study observation (narrative) [facility] Radiology Study observation (narrative) [facility] Radiology Study observation (narrative) [facility] Progress Noteon 06-22-2023 Progress Note PHYSICAL THERAPY [facility] Treatment Note Name/MRN: Azar Triplett ([id number]) Date of : 1945 Age: 77 y.o. Room[facility]Bed: [facility] A Discharge Recommendation: 24 hour supervision or [...] belt, no alarms engaged upon entry, and polymerization helper present Restraints: No Education Education Given To: [...] was completed by a student physical therapist surgical supply assistant under the supervision of the cosigning therapist. Joan Mayorga SHADE BANDER [facility] Progress Note Nutrition rescreen completed. Chart reviewed. Patient to be monitored and followed by the diet inventory technician. DIMITRI Ernandez [facility] Progress Note OCCUPATIONAL THERAPY [facility] Treatment Note Name/MRN: Azar Triplett ([id number]) Date of : 1945 Age: 77 y.o. Room/Bed: H-6112/-6112 A Discharge Recommendation: Prison Facility, Pending approval of OTR/L of change [...] Dressing: Min Assist (see below) Adaptive Equipment: Stable Manager to doff gripper sock with MIN A [...] (2-ADL; 1- FUNCT ACT) RADHA Donaldson Normal [facility] BASIC METABOLIC PANELon 06-01 Anion gap [Moles/Vol] 7 mmol/L Normal 3-13 [facility] Comment on above: Performed By: #### L AB15 ####Securities Lending Trader: WINSTON HEDRICK ([id number])[address] Calcium [Mass/Vol] 8.6 mg/dL Normal 8.4-10.4 [facility] Comment on above: Performed By: #### L AB15 ####Securities Lending Trader: WINSTON HEDRICK ([id number])[facility])[address] [place] [address] [place] Chloride [Moles/Vol] 103 mmol/L Normal 98-107 [facility] Comment on above: Performed By: #### L AB15 ####Sec[employer] L[employer] Trader: WINSTON HEDRICK ([id number])[facility])[address] [place] [address] CO2 [Moles/Vol] 25 mmol/L Normal 22-30 [facility] Comment on above: Performed By: #### L AB15 ####Sec[employer] L[employer] Trader: WINSTON [id number])[facility])[address] [place] [address] Creatinine [Mass/Vol] 0.94 mg/dL Normal 0.66-1.25 [facility] Comment on above: Performed By: #### L AB15 ####Sec[employer] L[employer] Trader: WINSTON HEDRICK ([id number])[facility] ([facility])[address] [place] [address] GLOMERULAR FILTRATION RATE ML/MIN/1.73 SQ M.PREDICTED 82.5 mL/min/1.73m*2 Normal >60.0 [facility] Comment on above: Result Comment: Calc ulation based on the Chronic Kidney Disease Epidemiology Collaboration (CKD-EPI) equation refit without adjustment for race Performed By: #### L AB15 ####Sec[employer] L[employer] Trader: WINSTON HEDRICK ([id number])[facility] ([facility])[address] [place] [address] Glucose [Mass/Vol] 239 mg/dL High 70-100 [facility] Comment on above: Performed By: #### L AB15 ####Sec[employer] L[employer] Trader: WINSTON HEDRICK ([id number])[facility] ([facility])[address] [place] [address] Potassium [Moles/Vol] 3.6 mmol/L Normal 3.5-5.1 [facility] Comment on above: Performed By: #### L AB15 ####Securities Lending Trader: WINSTON HEDRICK ([id number])[facility] ([facility])[address] [place] [address] Sodium [Moles/Vol] 135 mmol/L Normal 135-145 [facility] Comment on above: Performed By: #### L AB15 ####Securities Lending Trader: WINSTON HEDRICK ([id number])[facility] ([facility])[address] [place] [address] [place] Urea nitrogen [Mass/Vol] 25 mg/dL High 9-20 [facility] Comment on above: Performed By: #### L AB15 ####Securities Lending Trader: WINSTON HEDRICK ([id number])[facility] ([facility])[address] [place] [address] Basic metabolic 1998 panelon 06-21-2023 Anion gap [Moles/Vol] 7 mmol/L 3 - 13 mmol/L [facility] Calcium [Mass/Vol] 8.6 mg/dL 8.4 - 10. 4 mg/dL [facility] Chloride [Moles/Vol] 103 mmol/L 98 - 10 7 mmol/L [facility] CO2 [Moles/Vol] 25 mmol/L 22 - 30 mmol/L [facility] Creatinine [Mass/Vol] 0.94 mg/dL 0.66 - 1.25 mg/dL [facility] GFR/1.73 sq M.predicted MDRD (S/P/Bld) [Vol rate/Area] 82.5 mL/min/{1.73_m2} - PINF [facility] Comment on above: Calculation based on the Chronic Kidney Disease Epidemiology Collaboration (CKD-EPI) equation refit without adjustment for race Glucose [Mass/Vol] 239 mg/dL High 70 - 100 mg/dL [facility] Interpretation and review of laboratory results Abnormal [facility] Potassium [Moles/Vol] 3.6 mmol/L 3.5 - 5.1 mmol/L [facility] Sodium [Moles/Vol] 135 mmol/L 135 - 145 mmol/L [facility] Urea nitrogen [Mass/Vol] 25 mg/dL High 9 - 20 mg/dL [facility] Patient remains on H 6 s/p anterior lumbar fusion 06/19/2023. Reg 5 carb choice diet noted. Per RN accordian drain with increase output. PT/OT noted. Discharge plan is to spouse home with therapy at home. TCC to assist and follow as needed. Normal [facility] CBC W Auto Differential pane l (Bld)Ordered By: Luiz Acosta on 06-21-2023 Basophils (Bld) [#/Vol] 0.0 10*3/uL 0.0 - 0.2 10*3/uL [facility] Basophils/100 WBC (Bld) 0.1 % 0.0 - 2.0 % [facility] Eosinophils (Bld) [#/Vol] 0.0 10*3/uL 0.0 - 0.5 10*3/uL [facility] Eosinophils/100 WBC (Bld) 0.0 % Low 1.0 - 6.0 % [facility] Erythrocyte distribution width (RBC) [Ratio] 13.1 % 11.5 - 14.5 % [facility] Hematocrit (Bld) [Volume fraction] 30.5 % Low 40.0 - 52.0 % [facility] Hemoglobin (Bld) [Mass/Vol] 10.2 g/dL Low 13.0 - 18.0 g/dL [facility] Interpretation and review of laboratory results Abnormal [facility] Lymphocytes (Bld) [#/Vol] 1.0 10*3/uL 1.0 - 4.3 10*3/uL [facility] Lymphocytes/100 WBC (Bld) 5.3 % Low 20.0 - 40.0 % [facility] MCH (RBC) [Entitic mass] 29.7 pg 26.0 - 34.0 pg [facility] MCHC (RBC) [Mass/Vol] 33.4 % 32.0 - 36.0 % [facility] MCV (RBC) [Entitic vol] 88.7 fL 80.0 - 98.0 fL [facility] Monocytes (Bld) [#/Vol] 1.6 10*3/uL High 0.0 - 0.8 10*3/uL [facility] Comment on above: I-Monocytosis # Monocytes/100 WBC (Bld) 8.2 % 2.0 - 10.0 % [facility] Neutrophils (Bld) [#/Vol] 17.0 10*3/uL High 1.8 - 7.0 10*3/uL [facility] Neutrophils/100 WBC (Bld) 86.4 % High 40.0 - 80.0 % [facility] Nucleated RBC/100 WBC (Bld) [Ratio] 0.0 % [facility] Platelet mean volume (Bld) [Entitic vol] 9.2 fL 7.4 - 12.4 fL [facility] Platelets (Bld) [#/Vol] 182 10*3/uL 140 - 440 10*3/uL [facility] RBC (Bld) [#/Vol] 3.44 10*6/uL Low 4.40 - 5.9 0 10*6/uL [facility] WBC (Bld) [#/Vol] 19.7 10*3/uL High 3.6 - 10.7 10*3/uL [facility] CBC WITH AUTO DIFFERENTIALon 06-21-2023 Basophils (Bld) [#/Vol] 0.0 10*3/uL Normal 0.0-0.2 [facility] Comment on above: Performed By: #### L [id number] ####Securities Lending Trader: WINSTON HEDRICK ([phone])[facility])[address] [place] [address] Basophils/100 WBC (Bld) 0.1 % Normal 0.0-2.0 [facility] Comment on above: Performed By: #### L [id number] ####Securities Lending Trader: WINSTON HEDRICK ([phone])[facility])[address] [place] [address] Eosinophils (Bld) [#/Vol] 0.0 10*3/uL Normal 0.0-0.5 [facility] Comment on above: Performed By: #### L [id number] ####Securities Lending Trader: WINSTON HEDRICK ([id number])[facility])[address] [place] [address] Eosinophils/100 WBC (Bld) 0.0 % Low 1.0-6.0 [facility] Comment on above: Performed By: #### L [id number] ####Securities Lending Trader: WINSTON HEDRICK ([phone])[facility])[address] [place] [address] Erythrocyte distribution width (RBC) [Ratio] 13.1 % Normal 11.5-14.5 [facility] Comment on above: Performed By: #### L [id number] ####Securities Lending Trader: WINSTON HEDRICK ([phone])[facility])[address] [place] [address] ERYTHROCYTE MEAN CORPUSCULAR HEMOGLOBIN CONCENTRATION (G/DL) BY AUTOMATED 33.4 % Normal 32.0-36.0 [facility] Comment on above: Performed By: #### L [id number] ####Securities Lending Trader: WINSTON HEDRICK ([phone])[facility] [address] Hematocrit (Bld) [Volume fraction] 30.5 % Low 40.0-52.0 [facility] Comment on above: Performed By: #### L [id number] ####Securities Lending Trader: WINSTON HEDRICK ([id number])[facility])[address] [place] [address] Hemoglobin (Bld) [Mass/Vol] 10.2 g/dL Low 13.0-18.0 [facility] Comment on above: Performed By: #### L [id number] ####Securities Lending Trader: WINSTON HEDRICK ([phone])[facility])[address] [place] [address] Lymphocytes (Bld) [#/Vol] 1.0 10*3/uL Normal 1.0-4.3 [facility] Comment on above: Performed By: #### L [id number] ####Securities Lending Trader: WINSTON HEDRICK ([phone])[facility])[address] [place] [address] Lymphocytes/100 WBC (Bld) 5.3 % Low 20.0-40.0 [facility] Comment on above: Performed By: #### L [id number] ####Securities Lending Trader: WINSTON HEDRICK ([phone])[facility])[address] [place] [address] MCH (RBC) [Entitic mass] 29.7 pg Normal 26.0-34.0 [facility] Comment on above: Performed By: #### L [id number] ####Securities Lending Trader: WINSTON HEDRICK ([id number])[facility])[address] [place] [address] MCV (RBC) [Entitic vol] 88.7 fL Normal 80.0-98.0 [facility] Comment on above: Performed By: #### L [id number] ####Securities Lending Trader: WINSTON HEDRICK ([phone])[facility])[address] [place] [address] Monocytes (Bld) [#/Vol] 1.6 10*3/uL High 0.0-0.8 [facility] Comment on above: Result Comment: I-Mo nocytosis # Performed By: #### L [id number] ####Securities Lending Trader: WINSTON HEDRICK ([id number])[facility] ([facility])[address] [place] [address] Monocytes/100 WBC (Bld) 8.2 % Normal 2.0-10.0 [facility] Comment on above: Performed By: #### L [id number] ####Securities Lending Trader: WINSTON HEDRICK ([id number])[facility] ([facility])[address] [place] [address] [place] Neutrophils (Bld) [#/Vol] 17.0 10*3/uL High 1.8-7.0 [facility] Comment on above: Performed By: #### L [id number] ####Securities Lending Trader: WINSTON HEDRICK ([phone])[facility] ([facility])[address] [place] [address] Neutrophils/100 WBC (Bld) 86.4 % High 40.0-80.0 [facility] Comment on above: Performed By: #### L [id number] ####Securities Lending Trader: WINSTON HEDRICK ([id number])[facility])[address] [place] [address] NRBC (PER 100 WBCS) BY AUTOMATED COUNT 0.0 /100 WBCs Normal 0.0-2.0 [facility] Comment on above: Performed By: #### L [id number] ####Securities Lending Trader: WINSTON HEDRICK ([id number])[facility] ([facility])[address] [place] [address] [place] Platelet mean volume (Bld) [Entitic vol] 9.2 fL Normal 7.4-12.4 [facility] Comment on above: Performed By: #### L [id number] ####Securities Lending Trader: WINSTON HEDRICK ([id number])[facility] ([facility])[address] [place] [address] [place] Platelets (Bld) [#/Vol] 182 10*3/uL Normal 140-440 [facility] Comment on above: Performed By: #### L [id number] ####Securities Lending Trader: WINSTON HEDRICK ([id number])[facility] ([facility])[address] [place] [address] RBC (Bld) [#/Vol] 3.44 10*6/uL Low 4.40-5.90 [facility] Comment on above: Performed By: #### L [id number] ####Securities Lending Trader: WINSTON HEDRICK ([id number])[facility] ([facility])[address] [place] [address] WBC (Bld) [#/Vol] 19.7 10*3/uL High 3.6-10.7 [facility] Comment on above: Performed By: #### L [id number] ####Securities Lending Trader: WINSTON HEDRICK ([id number])[facility] ([facility])[address] [place] [address] IDNon 06-21-2023 IDN Problem: Pain - Adul t Goal: Verbalizes/displays adequate comfort level or baseline comfort level Outcome: Progressing Problem: Safety - Adult Goal: Free from fall injury Outcome: Progressing Problem: Discharge Planning Goal: Discharge to home or other facility with appropriate resources Outcome: Progressing Normal [facility] Laboratory - Chemistry and C hemistry - challengeon 06-21-2023 Glucose [Mass/Vol] 262 mg/dL High 70 - 100 mg/dL [facility] Glucose [Mass/Vol] 250 mg/dL High 70 - 100 mg/dL [facility] Glucose [Mass/Vol] 245 mg/dL High 70 - 100 mg/dL [facility] Glucose [Mass/Vol] 317 mg/dL High 70 - 100 mg/dL [facility] No Panel Informationon 06-21 Interpretation and review of laboratory results Abnormal [facility]formed by: [facility], [address] [place] [address] CLIA ID: [id number] [facility] Interpretation and review of laboratory results Abnormal [facility] Performed by: [facility], [address] [place] [address] CLIA ID: [id number] [facility] Interpretation and review of laboratory results Abnormal [facility] Performed by: [facility], [address] [facility] [address] CLIA ID: [id number] [facility] Interpretation and review of laboratory results Abnormal [facility] Performed by: [facility], [address] [facility] [address] CLIA ID: [id number] [facility] Radiology Study observation (narrative) [facility] Radiology Study observation (narrative) [facility] Radiology Study observation (narrative) [facility] Radiology Study observation (narrative) [facility] Progress Noteon 06-21-2023 Progress Note PHYSICAL THERAPY [facility] Treatment Note Name/MRN: Azar Triplett ([id number]) Date of : 1945 Age: 77 y.o. Room/Bed: [facility] A Discharge Recommendation: 24 hour supervision or [...] belt, no alarms engaged upon entry, and polymerization helper present Restraints: No Education Education Given To: [...] was completed by a student physical therapist surgical supply assistant under the supervision of the cosigning therapist. Joan Mayorga [facility] XR LUMBAR SPINE 4-5 VIEWon 0 [...] Electronically Signed Date/Time: 06/21/2023 11:30 AM EST [facility] XR Lumbar spine Views W flex ion and W extensionon 06-21-2023 1. Now status post multilevel laminectomy and fusion. 2. Surgical drains are in place. 3. No acute radiographic findings. Report Dictated on Electronically Signed By: Thomas Haro MD Electronically Signed Date/Time: 06/21/2023 11:30 AM [facility] Patient Name: AZAR TRIPLETT DOB: [...] The bone mineralization is within normal limits. [facility] Thomas Haro MD - 06/21/2023 [...] Electronically Signed Date/Time: 06/21/2023 11:30 AM EST [facility] Radiology Study observation (narrative) [facility] XR Lumbar spine Views W flex ion and W extensionOrdered By: Thomas Haro on 06-21-2023 [facility] Work Phone: [phone] 06-20-2023 [id number] [employer] Commercial Salesperson following case for Discharge Needs. Normal [facility] BASIC METABOLIC PANELon 06-01 Anion gap [Moles/Vol] 10 mmol/L Normal 3-13 [facility] Comment on above: Performed By: #### L [id number] ####Securities Lending Trader: WINSTON HEDRICK ([phone])[address] Calcium [Mass/Vol] 8.1 mg/dL Low 8.4-10.4 [facility] Comment on above: Performed By: #### L [id number] ####Securities Lending Trader: WINSTON HEDRICK ([phone])[facility])[address] [place] [address] Chloride [Moles/Vol] 104 mmol/L Normal 98-107 [facility] Comment on above: Performed By: #### L AB15 ####Securities Lending Trader: WINSTON HEDRICK ([phone])[facility])[address] [place] [address] CO2 [Moles/Vol] 19 mmol/L Low 22-30 [facility] Comment on above: Performed By: #### L AB15 ####Securities Lending Trader: WINSTON HEDRICK ([phone])[facility])[address] [place] [address] Creatinine [Mass/Vol] 0.83 mg/dL Normal 0.66-1.25 [facility] Comment on above: Performed By: #### L AB15 ####Securities Lending Trader: WINSTON HEDRICK ([phone])[facility] ([facility])[address] [place] [address] GLOMERULAR FILTRATION RATE ML/MIN/1.73 SQ M.PREDICTED 89.0 mL/min/1.73m*2 Normal >60.0 [facility] Comment on above: Result Comment: Calc ulation based on the Chronic Kidney Disease Epidemiology Collaboration (CKD-EPI) equation refit without adjustment for race Performed By: #### L AB15 ####Securities Lending Trader: WINSTON HEDRICK ([id number])[facility] ([facility])[address] [place] [address] Glucose [Mass/Vol] 263 mg/dL High 70-100 [facility] Comment on above: Performed By: #### L AB15 ####Securities Lending Trader: WINSTON HEDRICK ([phone])[facility] ([facility])[address] [place] [address] Potassium [Moles/Vol] 4.0 mmol/L Normal 3.5-5.1 [facility] Comment on above: Performed By: #### L AB15 ####Securities Lending Trader: WINSTON HEDRIKC ([phone])[facility] ([facility])[address] [place] [address] Sodium [Moles/Vol] 134 mmol/L Low 135-145 [facility] Comment on above: Performed By: #### L AB15 ####Securities Lending Trader: WINSTON HEDRICK ([phone])[facility])[address] [place] [address] Urea nitrogen [Mass/Vol] 16 mg/dL Normal 9-20 [facility] Comment on above: Performed By: #### L AB15 ####Securities Lending Trader: WINSTON HEDRICK ([phone])[facility])[address] [place] [address] Basic metabolic 1998 panelon 06-20-2023 Anion gap [Moles/Vol] 10 mmol/L 3 - 13 mmol/L [facility] Calcium [Mass/Vol] 8.1 mg/dL Low 8.4 - 10. 4 mg/dL [facility] Chloride [Moles/Vol] 104 mmol/L 98 - 10 7 mmol/L [facility] CO2 [Moles/Vol] 19 mmol/L Low 22 - 30 mmol/L [facility] Creatinine [Mass/Vol] 0.83 mg/dL 0.66 - 1.25 mg/dL [facility] GFR/1.73 sq M.predicted MDRD (S/P/Bld) [Vol rate/Area] 89.0 mL/min/{1.73_m2} - PINF [facility] Comment on above: Calculation based on the Chronic Kidney Disease Epidemiology Collaboration (CKD-EPI) equation refit without adjustment for race Glucose [Mass/Vol] 263 mg/dL High 70 - 100 mg/dL [facility] Interpretation and review of laboratory results Abnormal [facility] Potassium [Moles/Vol] 4.0 mmol/L 3.5 - 5.1 mmol/L [facility] Sodium [Moles/Vol] 134 mmol/L Low 135 - 145 mmol/L [facility] Urea nitrogen [Mass/Vol] 16 mg/dL 9 - 20 mg/dL [facility] CARECOORDon 06-20-2023 [facility] Care Managment Initi al Assessment Date: 06/20/2023 Patient Name: Azar Triplett : 1945 Patient Information Source of Information: Patient Cognition/Language: WFL - Within Functional Limits Permission given to speak with patient entry level sales representative/caregiv er as indicated: Yes Confirmation of Payer with patient/family: Yes Payer Name: [facility] : No Confirmation of Primary Care Physician: [...] Living Prescription Coverage: Yes Pharmacy Used: [facility] Medication Management: Independent Transportation/Shoppin g: (van, son [...] RX coverage, active with PCP. Patient is Shinto, son is in the room. Patient lives alone. Patient is going to stay with spouse after surgery. Son will arrange van transport home. Patient is agreeable to therapy at home. TCC to assist and follow as needed. Radha Martinez RN [facility] Consulton 06-20-2023 Consult [facility] Medicine Consult Patient - Azar Triplett, Age - 77 y.o. - 1945 Room Number - [id number] A Consulting - Guerda Alvarez MD [facility] Phys[id number] Date of Admission - 06/19/2023 6:04 AM [...] Date Abnormal EKG Back pain recent steroid [id number] Cardiac murmur echo 06-14-23 EF 40-45%, moderate [...] tenderness. There is no guarding. Genitourinary: Comments: Mectalf draining clear urine Musculoskeletal: General: Tenderness and [...] See re (more content not included)... Normal [facility] HEMOGLOBIN A1Con 06-20-2023 Glucose [Mass/Vol] 177 mg/dL Normal [facility] Comment on above: Performed By: #### L AB90 ####Securities Lending Trader: WINSTON HEDRICK ([phone])[facility])[address] [place] [address] HbA1c (Bld) [Mass fraction] 7.8 % High <5.7 [facility] Comment on above: Result Comment: Norm al less than 5.7% Prediabetes 5.7% to 6.4% Diabetes 6.5% or higher --HgbA1C levels may not be accurate in patients who have renal disease, received recent blood transfusions, are anemic, or who have dyshemoglobinemia. Performed By: #### L AB90 ####Securities Lending Trader: WINSTON HEDRICK ([phone])[facility])[address] [place] [address] HEMOGLOBIN AND HEMATOCRIT, B LOODon 06-20-2023 Hematocrit (Bld) [Volume fraction] 30.3 % Low 40.0-52.0 [facility] Comment on above: Performed By: #### L [id number] ####Securities Lending Trader: WINSTON HEDRICK ([phone])[facility] ([facility])[address] [place] [address] Hemoglobin (Bld) [Mass/Vol] 10.5 g/dL Low 13.0-18.0 [facility] Comment on above: Performed By: #### L [id number] ####Securities Lending Trader: WINSTON HEDRICK ([phone])[address] Hemoglobin (Bld) [Mass/Vol]O rdered By: Lenore Odonnell on 06-20-2023 Hematocrit (Bld) [Volume fraction] 30.3 % Low 40.0 - 52.0 % [facility] Interpretation and review of laboratory results Abnormal [facility] IDNon 06-20-2023 IDN Problem: Pain - Adul t Goal: Verbalizes/displays adequate comfort level or baseline comfort level Outcome: Progressing Problem: Safety - Adult Goal: Free from fall injury Outcome: Progressing Problem: Discharge Planning Goal: Discharge to home or other facility with appropriate resources Outcome: Progressing Normal [facility] Laboratory - Chemistry and C hemistry - challengeon 06-20-2023 Glucose [Mass/Vol] 299 mg/dL High 70 - 100 mg/dL [facility] Glucose [Mass/Vol] 391 mg/dL High 70 - 100 mg/dL [facility] Average glucose Estimated from glycated hemoglobin (Bld) [Mass/Vol] 177 mg/dL [facility] Glucose [Mass/Vol] 435 mg/dL High 70 - 100 mg/dL [facility] Glucose [Mass/Vol] 352 mg/dL High 70 - 100 mg/dL [facility] Glucose [Mass/Vol] 325 mg/dL High 70 - 100 mg/dL [facility] Laboratory - Hematology and Cell countson 06-20-2023 HbA1c (Bld) [Mass fraction] 7.8 % High NINF - 5.7 % [facility] Comment on above: Normal less than 5.7 % Prediabetes 5.7% to 6.4% Diabetes 6.5% or higher --HgbA1C levels may not be accurate in patients who have renal disease, received recent blood transfusions, are anemic, or who have dyshemoglobinemia. Laboratory - Hematology and Cell countsOrdered By: Lenore Odonnell on 06-20-2023 Hemoglobin (Bld) [Mass/Vol] 10.5 g/dL Low 13.0 - 18.0 g/dL [facility] No Panel Informationon 06-20 Interpretation and review of laboratory results Abnormal [facility] Performed by: [facility] [employer] [facility], [address] [place] [address] CLIA ID: [id number] [facility] Interpretation and review of laboratory results Abnormal [facility] Performed by: [facility] [employer] [facility], [address] [place] [address] CLIA ID: [id number] [facility] Interpretation and review of laboratory results Abnormal [facility] Interpretation and review of laboratory results Abnormal [facility] Performed by: [facility], [address] [place] [address] CLIA ID: [id number] [facility] Interpretation and review of laboratory results Abnormal [facility] Performed by: [facility] [employer] [facility], [address] [place] [address] CLIA ID: [id number] [facility] Radiology Study observation (narrative) [facility] Radiology Study observation (narrative) [facility] Radiology Study observation (narrative) [facility] Radiology Study observation (narrative) [facility] Radiology Study observation (narrative) [facility] Progress Noteon 06-20-2023 Progress Note -- [...] Sheng Mazariegos MD General Surgery PGY-1 Pager [phone] [facility] Laboratory - Chemistry and C hemistry - challengeon 06-19-2023 Glucose [Mass/Vol] 245 mg/dL High 70 - 100 mg/dL [facility] Glucose [Mass/Vol] 237 mg/dL High 70 - 100 mg/dL [facility] Glucose [Mass/Vol] 120 mg/dL High 70 - 100 mg/dL [facility] No Panel Informationon 06-19 Interpretation and review of laboratory results Abnormal [facility] Performed by: [facility], [address] [place] [address] CLIA ID: [id number] [facility] Interpretation and review of laboratory results Abnormal [facility] Performed by: [facility], [address] [place] [address] CLIA ID: [id number] [facility] There is no interpretation needed for this exam. IMAGING Interpretation and review of laboratory results Abnormal [facility] Performed by: [facility], [address] [place] [address] CLIA ID: [id number] [facility] Radiology Study observation (narrative) [facility] Radiology Study observation (narrative) [facility] Radiology Study observation (narrative) [facility] Nursing Noteon 06-19-2023 Nursing Note Pt son, Perry, jero ed at this time. Pt family leaving for dinner- asked to be called once pt has room assigned. Normal [facility] Nursing Note Patient report is called to H6 LOUIS Gilman and denies any further questions at this time. Patient is resting comfortably at this time and asleep but arouses to voice. Normal [facility] Op Noteon 06-19-2023 Op Note OPERATIVE NOTE [...] end of the case. Karol Pradhan MD [facility] Op Note OPERATIVE NOTE Patient Name: Azar Triplett : 1945 DATE OF PROCEDURE: 06/19/2023 SURGEON: Guerda Page MD PREOPERATIVE DIAGNOSES: Spondylolisthesis, Stenosis POSTOPERATIVE DIAGNOSES: Same PROCEDURE: Anterior Lumbar Interbody Fusion L4-5-S1, LT Peek Cage, Bone Morphogenic Protein Posterior Fusion L4-5-S1, Decompression G1-2-7-4-5-S1, Solera Pedicle Instrumentation, Local Bone ANESTHESIA: General [...] to 10 mm. Double barrel LT cage topology teacher was then tamped into position. We reamed [...] double barrel size 14 LT peek cage topology teacher used. We reamed to 32 mm x [...] to the recovery room in stable condition. [facility] Op Note Date: 06/19/2023 Location: [facility] OR Name: Azar Triplett, : 1945, Diagnosis Pre-op Diagnosis * Spondylolisthesis, lumbosacral region [M43.17] Post-op Diagnosis * Spondylolisthesis, lumbosacral region [M43.17] Procedures ANTERIOR LUMBAR INTERBODY FUSION LUMBAR 4/5-SACRAL 1, INTERBODY DEVICE BONE MORPHOGENETIC PROTEIN, POSTERIOR FUSION LUMBAR 4/5-SACRAL 1, DECOMPRESSION LUMBAR 9-2-3-4-5-SACRAL 1, PEDICLE INSTRUMENTATION AND LOCAL BONE 29382 - CA ARTHRD ANT INTERBODY MIN DSC LUMBAR ANTERIOR MICRODISCECTOMY AND FUSION EACH ADDITIONAL LEVEL 22712 - CA ARTHRD ANT NTRBD MIN DSC EA ADDL INTERSPACE INSERTION OF INTERBODY BIOMECHANICAL DEVICE 75694 - CA INSJ BIOMCHN DEV INTERVERTEBRAL DSC SPC W/ARTHRD POSTERIOR LUMBAR FUSION 54296 - CA ARTHRODESIS POSTERIOR/PSTLAT TQ 1NTRSPC LUMBAR POSTERIOR OR POSTEROLATERAL FUSION EACH ADDITIONAL LEVEL 83624 - CA ARTHRODESIS PST/PSTLAT TQ 1NTRSPC EA ADDL NTRSPC POSTERIOR LUMBAR LAMINECTOMY FACETECTOMY FORAMINOTOMY AND DECOMPRESSION 63736 - CA AGUILLON FACETECTOMY & FORAMOTOMY 1 VRT SGM LUMBAR POSTERIOR CERVICAL/THORACIC/LUMB AR LAMINECTOMY FACETECTOMY FORAMINOTOMY AND DECOMPRESSION EACH ADDITIONAL 79707 - CA AGUILLON FACETECTOMY&FORAMOT 1 VRT SGM EA ADDL SGM POSTERIOR SPINAL INSTRUMENTATION 3 TO 6 LEVELS 04880 - CA POSTERIOR SEGMENTAL INSTRUMENTATION 3-6 VRT SEG Surgeons * Guerda Page V - Primary * Drazen Petrinec - Assisting Procedure Summary Anesthesia: General ASA: III Estimated Blood Loss: 1200 mL Drains: Closed/Suction Drain Inferior Back Accordion 10 Fr. (Active) Urethral Catheter Straight-tip 16 Fr. (Active) Implants Type Name Action Serial No. Graft KIT INFUSE BONE GRAFT XL 8.0CC - [id number] Used, Not Implanted Spinal Hardware CAGE SPINE LUMBAR 14X17.5X23MM - [id number] Implanted Spinal Hardware SCREW SPINAL 6.7LBA42FD - [id number] Implanted Spinal Hardware SCREW SET TI SPINAL BREAK OFF - [id number] Implanted Spinal Hardware JODY SPNL CROMALLOY BENT 5.5X55 - [id number] Wasted Spinal Hardware JODY SPNL CROMALLOY BENT 5.5X60 - [id number] Implanted Staff: Certified Midwife: Jewel Shaw RN; Conor Pinto RN Scrub [...] precautions -NV checks q4 hrs -Ortho primary [facility] XR ABDOMEN 1 VIEWon 06-19-19 24 [...] Signed Date/Time: 06/19/2023 12:51 PM EST Normal [facility] XR Abdomen Single viewon Multiple surgical isabel [...] Electronically Signed Date/Time: 06/19/2023 12:51 PM EST [facility] Patient Name: AZAR TRIPLETT : [...] not included in the field of view. [facility] SYSTEM Yovany Lerma MD - 06/19/2023 Patient [...] Electronically Signed Date/Time: 06/19/2023 12:51 PM EST [facility] Red Lambda Radiology Study observation (narrative) [employer] XR Abdomen Single viewOrdere d By: Yovany Lerma on 06-19-2023 [facility] Work Phone: BLOOD TYPE AND SCREEN GELon 06-18-2023 ABO GROUPING A Normal [facility] Comment on above: Performed By: #### L [id number] ####Securities Lending Trader: WINSTON HEDRICK ([phone])[facility] ([facility])[address] [place] [address] RH TYPE IN BLOOD Positive Normal [facility] Comment on above: Performed By: #### L AB276 ####Securities Lending Trader: WINSTON HEDRICK ([phone])[facility] ([facility])[address] [place] [address] CBC (HEMOGRAM)on 06-18-2023 Erythrocyte distribution width (RBC) [Ratio] 13.3 % Normal 11.5-14.5 [facility] Comment on above: Performed By: #### L AB294 ####Securities Lending Trader: WINSTON HEDRICK ([phone])[facility] ([facility])[address] [place] [address] ERYTHROCYTE MEAN CORPUSCULAR HEMOGLOBIN CONCENTRATION (G/DL) BY AUTOMATED 33.7 % Normal 32.0-36.0 [facility] Comment on above: Performed By: #### L AB294 ####Securities Lending Trader: WINSTON HEDRICK ([phone])[facility])[address] [place] [address] Hematocrit (Bld) [Volume fraction] 44.6 % Normal 40.0-52.0 [facility] Comment on above: Performed By: #### L AB294 ####Securities Lending Trader: WINSTON HEDRICK ([phone])[facility])[address] [place] [address] Hemoglobin (Bld) [Mass/Vol] 15.0 g/dL Normal 13.0-18.0 [facility] Comment on above: Performed By: #### L AB294 ####Securities Lending Trader: WINSTON HEDRICK ([phone])[facility] ([facility])[address] [place] [address] MCH (RBC) [Entitic mass] 29.6 pg Normal 26.0-34.0 [facility] Comment on above: Performed By: #### L AB294 ####Securities Lending Trader: WINSTON HEDRICK ([phone])[facility])[address] [place] [address] MCV (RBC) [Entitic vol] 87.8 fL Normal 80.0-98.0 [facility] Comment on above: Performed By: #### L AB294 ####Securities Lending Trader: WINSTON HEDRICK ([id number])[facility])[address] [place] [address] Platelet mean volume (Bld) [Entitic vol] 8.4 fL Normal 7.4-12.4 [facility] Comment on above: Performed By: #### L AB294 ####Securities Lending Trader: WINSTON HEDRICK ([phone])[facility] ([facility])[address] [place] [address] Platelets (Bld) [#/Vol] 202 10*3/uL Normal 140-440 [facility] Comment on above: Performed By: #### L AB294 ####Securities Lending Trader: WINSTON HEDRICK ([id number])[facility])[address] [place] [address] RBC (Bld) [#/Vol] 5.08 10*6/uL Normal 4.40-5.90 [facility] Comment on above: Performed By: #### L AB294 ####Securities Lending Trader: WINSTON HEDRICK ([phone])[facility])[address] [place] [address] WBC (Bld) [#/Vol] 9.1 10*3/uL Normal 3.6-10.7 [facility] Comment on above: Performed By: #### L AB294 ####Securities Lending Trader: WINSTON HEDRICK ([phone])[facility])[address] [place] [address] COMPREHENSIVE METABOLIC PANE Tano 06-18-2023 Albumin [Mass/Vol] 4.2 g/dL Normal 3.5-5.0 [facility] Comment on above: Performed By: #### L AB17 ####Securities Lending Trader: WINSTON HEDRICK ([phone])[facility] ([facility])[address] [place] [address] ALP [Catalytic activity/Vol] 55 U/L Normal 38-126 [facility] Comment on above: Performed By: #### L AB17 ####Securities Lending Trader: WINSTON HEDRICK ([id number])[facility] ([facility])[address] [place] [address] ALT [Catalytic activity/Vol] 44 U/L Normal 0-49 [facility] Comment on above: Performed By: #### L AB17 ####Securities Lending Trader: WINSTON HEDRICK ([phone])[facility] ([facility])[address] [place] [address] Anion gap [Moles/Vol] 7 mmol/L Normal 3-13 [facility] Comment on above: Performed By: #### L AB17 ####Securities Lending Trader: WINSTON HEDRICK ([phone])[facility] ([facility])[address] [place] [address] AST [Catalytic activity/Vol] 49 U/L High 15-46 [facility] Comment on above: Performed By: #### L AB17 ####Securities Lending Trader: WINSTON HEDRICK ([id number])[facility])[address] [place] [address] Bilirubin [Mass/Vol] 1.0 mg/dL Normal 0.2-1.3 [facility] Comment on above: Performed By: #### L AB17 ####Securities Lending Trader: WINSTON HEDRICK ([id number])[facility])[address] [place] [address] Calcium [Mass/Vol] 9.1 mg/dL Normal 8.4-10.4 [facility] Comment on above: Performed By: #### L AB17 ####Securities Lending Trader: WINSTON HEDRICK ([id number])[facility] ([facility])[address] [place] [address] Chloride [Moles/Vol] 103 mmol/L Normal 98-107 [facility] Comment on above: Performed By: #### L AB17 ####Securities Lending Trader: WINSTON HEDRICK ([id number])[facility] ([facility])[address] [place] [address] CO2 [Moles/Vol] 26 mmol/L Normal 22-30 [facility] Comment on above: Performed By: #### L AB17 ####Securities Lending Trader: WINSTON HEDRICK ([phone])[facility])[address] [place] [address] Creatinine [Mass/Vol] 0.81 mg/dL Normal 0.66-1.25 [facility] Comment on above: Performed By: #### L AB17 ####Securities Lending Trader: WINSTON HEDRICK ([phone])[facility] ([facility])[address] [place] [address] GLOMERULAR FILTRATION RATE ML/MIN/1.73 SQ M.PREDICTED 89.7 mL/min/1.73m*2 Normal >60.0 [facility] Comment on above: Result Comment: Calc ulation based on the Chronic Kidney Disease Epidemiology Collaboration (CKD-EPI) equation refit without adjustment for race Performed By: #### L AB17 ####Securities Lending Trader: WINSTON HEDRICK ([phone])[facility] ([facility])[address] [place] [address] [place] Glucose [Mass/Vol] 113 mg/dL High 70-100 [facility] Comment on above: Performed By: #### L AB17 ####Securities Lending Trader: WINSTON HEDRICK ([phone])[facility])[address] [place] [address] Potassium [Moles/Vol] 3.3 mmol/L Low 3.5-5.1 [facility] Comment on above: Performed By: #### L AB17 ####Securities Lending Trader: WINSTON HEDRICK ([id number])[facility] [address] Protein [Mass/Vol] 7.4 g/dL Normal 6.3-8.2 [facility] Comment on above: Performed By: #### L AB17 ####Securities Lending Trader: WINSTON HEDRICK ([phone])[facility])[address] [place] [address] Sodium [Moles/Vol] 136 mmol/L Normal 135-145 [facility] Comment on above: Performed By: #### L AB17 ####Securities Lending Trader: WINSTON HEDRICK ([phone])[address] Urea nitrogen [Mass/Vol] 14 mg/dL Normal 9-20 [facility] Comment on above: Performed By: #### L AB17 ####Securities Lending Trader: WINSTON HEDRICK ([phone])[address] PREPROCINSon 06-18-2023 PREPROCINS Medication List Accurate [...] your scheduled surgery time. Please bring your [facility] Surgical folder and medication list with you day of surgery. We encourage you to write down any questions you may have for the surgeon, anesthesiologist, or other members of the surgical team and bring it with you the day of surgery. Please bring photo ID and insurance information. UPPER TIER AND PARKING IN THE MAIN DECK ARE [...] SAME DAY DESK AND CHECK IN. Normal [facility] 36on 06-15-2023 36 FYI-Per Dr. Page' s office this case has been changed to be done at [facility] on 06/19/23. Start time will be at 7:30 am but you can come after your meeting that morning. Normal [facility] US Heart Transthoracicon Aortic Valve Area by Continuity of Peak Velocity 1.10 cm2 [facility] Work Phone: Aortic Valve Area by Continuity of VTI 1.05 cm2 [facility] Work Phone: AV mn grad 20.6 mmHg [facility] Work Phone: AV pk grad 37.2 mmHg [facility] Work Phone: AV pk celine 3.05 m/s [facility] Work Phone: LA vol index A/L 35.2 ml/m2 [facility] Work Phone: LV A4C EF 41.6 [facility] Work Phone: LV biplane EF 40 % [facility] Work Phone: LV GLS -13.7 % [facility] Work Phone: LVIDd 4.89 cm [facility] Work Phone: LVOT diam 2.06 cm [facility] Work Phone: MV avg E/e' ratio 14.71 [facility] Work Phone: MV E/A ratio 0.70 [facility] Work Phone: RV free wall pk S' 11.00 cm/s [facility] Work Phone: RVSP 30.0 mmHg [facility] Work Phone: Tricuspid annular plane systolic excursion 2.0 cm [facility] Work Phone: [facility] [place] [address] and TRANSTHORACIC ECHOCARDIOGRAM REPORT Patient Name: AZAR Guevara Physician: Ricky Donahue MD Study Date: 06/14/2023 Ordering Provider: Ricky DONAHUE MRN/PID: [id number] Fellow: Nurse: Date of /Age: 4 1945 / 77 years Director Of Digital Technology: R Gender: M Additional Staff: Height: 165.10 cm Admit Date: 06/14/2023 Weight: 81.19 kg Admission Status: Outpatient BSA / BMI: 1.89 m2 / 29.79 kg/m2 Department Location: [facility] Blood Pressure: 178 /95 mmHg Study Type: TRANSTHORACIC ECHO (TTE) COMPLETE Diagnosis/ICD: Abnormal electrocardiogram [ECG] [EKG]-R94.31; Cardiac murmur, unspecified-R01.1 Indication: Abnormal EKG, Heart Murmur CPT Code: Echo Complete w Full Doppler-64544 Study Detail: The following Echo studies were [...] LA Area A2C: 19.1 cm2 LA [place] A4C: 5.6 cm LA [place] A2C: 5.5 cm LA Vol A4C: 70.4 ml LA Vol A2C: 53.2 ml RA VOLUME BY A/L METHOD: Normal Ranges: RA Vol A4C: 16.3 ml (8.3-19.5ml) RA Vol Index A4C: 8.7 ml/m2 RA Area A4C: 9.4 cm2 RA [place] A4C: 4.6 cm LV SYSTOLIC FUNCTION BY 2D PLANIMETRY (MOD): Normal Ranges: EF-A4C View: 41.6 % (>=55%) EF-A2C View: 35.1 % EF-Biplane: 40.5 % Global Longitudinal Strain (GLS): -13.7 % LV DIASTOLIC FUNCTION: Normal Ranges: MV Peak E: 0.74 m/s (more content not included)... Luis Rebolledo MD - 06/14/2023 [facility] [place] [address] and TRANSTHORACIC ECHOCARDIOGRAM REPORT Patient Name: AZAR Guevara Physician: Ricky Donahue MD Study Date: 06/14/2023 Ordering Provider: [id number] DONAHUE MRN/PID: [id number] Fellow: Nurse: Date of /Age: 4 1945 / 77 years Director Of Digital Technology: LENA Gender: M Additional Staff: Height: 165.10 cm Admit Date: 06/14/2023 Weight: 81.19 kg Admission Status: Outpatient BSA / BMI: 1.89 m2 / 29.79 kg/m2 Department Location: [facility] Blood Pressure: 178 /95 mmHg Study Type: TRANSTHORACIC ECHO (TTE) COMPLETE Diagnosis/ICD: Abnormal electrocardiogram [ECG] [EKG]-R94.31; Cardiac murmur, unspecified-R01.1 Indication: Abnormal EKG, Heart Murmur CPT Code: Echo Complete w Full Doppler-82543 Study Detail: The following Echo studies were [...] LA Area A2C: 19.1 cm2 LA [place] A4C: 5.6 cm LA [place] A2C: 5.5 cm LA Vol A4C: 70.4 ml LA Vol A2C: 53.2 ml RA VOLUME BY A/L METHOD: Normal Ranges: RA Vol A4C: 16.3 ml (8.3-19.5ml) RA Vol Index A4C: 8.7 ml/m2 RA Area A4C: 9.4 cm2 RA [place] A4C: 4.6 cm LV SYSTOLIC FUNCTION BY [...] Dimensionless Index: 0.32 (more content not included)... [facility] Work Phone: [facility] Work Phone: 36on 05-29-2023 36 No auth needed. Normal [facility] Basophil percentageOrdered B y: Jerry Parmar on 05-21-2023 Creatinine [Mass/Vol] 1.4 mg/dL 0.70-1.30 [facility] Laboratory - Chemistry and C hemistry - challengeOrdered By: Jerry Parmar on 05-21-2023 GFR/1.73 sq M.predicted among non-blacks MDRD (S/P/Bld) [Vol rate/Area] 50.0000 mL/min/{1.73_m2} >60 [facility] Final Surgical Pathology Rep taz 05-15-2023 Final Surgical Pathology Report . 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 TS-1 Yin Wu, Grossing Rip And Groove Machine Operator/ Dr. Conor Mccarthy, Pathologist Dictated by Yin Wu MICROSCOPIC DESCRIPTION: The microscopic examination is performed, except in the case of Gross Only. Electronically Signed by Pathology Report verified by [facility] PRAVEEN GRAVES Sign out Date: 05/15/2023 14:53 Performing Lab: [facility], [address] [place] [address] Pathology Dept Disclaimer If ancillary studies were utilized, the following Laboratory Developed Test (LDT) disclaimer will apply: Under CLIA requirements, [facility] Pathology Laboratory is qualified to perform high complexity testing. For all ancillary stains, positive and negative controls stain appropriately. Performance characteristics of immunohistochemical and chromogenic in-situ hybridization tests have been determined by [facility] Pathology Laboratory. These tests are used for clinical purposes, They should not be regarded as investigational or for research. Normal [facility] ([place]) OPERATIVE PROCEDURESon 05-11 OPERATIVE PROCEDURES [facility] OPERATIVE REPORT NAME ACCOUNT SEX AGE ADMIT DISCHARGE PT MED. RECORD# NUMBER DATE DATE PREET TRIPLETT, [id number] M [id number] 05/11/23 Pamela Loyola [id number] ROOM: [facility] DATE OF : 1945 DICTATING PHYSICIAN: Ortiz Valdez DATE OF SURGERY: May 11, 2023 SURGEON: Ortiz Valdez MD THRESHING OPERATOR: ANESTHESIOLOGIST: Dario Brown MD ANESTHETIC: PREOPERATIVE DIAGNOSIS: [...] tone, and no discrete mass. The Olympus [id number] flexible endoscope was introduced through the anal [...] Ortiz Valdez MD 05/11/23 12:36 JOB #: [id number] Transcribed By: am 05/11/23 12:47 Electronically signed by: E-Sign Dr. Ortiz Valdez MD 05/11/23 16:54 Page 2 of 2 AZAR TRIPLETT Operative Report Normal [facility] 36on 04-24-2023 36 SURGERY: CCOC FOR DR Jorge PAGE OPEN & CLOSE ALIF L4-5-S1 DATE OF SURGERY: 06/19/2023 AT 9:00 AM AUTH #: [facility] PER JULY WITH DR. PAGE'S OFFICE. [facility] MRI SPINE LUMBAR W/ + W/O CO [...] 04/04/2023 1:50:10 PM Ordering Provider: SEFERINO HERNANDEZ [facility] ([place]) XR FOOT MINIMUM 3 VIEWS LISS Dash [...] 11/13/2022 6:46:37 AM Ordering Provider: SEFERINO HERNANDEZ [facility] ([place] XR KNEE THREE VIEWS LEFTon 0 11-12-2022 [...] PM Ordering Provider: SEFERINO Garcia [facility] ([place]) .GFRon 10-26-2022 GFR 80 ml/min/1.73sqm [facility] ([place]) Comment on above: Result Comment: GFR Population [...] #### L IPID, GFR, A1C, CMP #### [address] [address] GFR Non- 66 ml/min/1.73sqm Normal [facility] ([place]) Comment on above: Result Comment: GFR Population [...] #### L IPID, GFR, A1C, CMP #### [address] [address] A1Con 10-26-2022 HbA1c (Bld) [Mass fraction] 7.3 % High 4.3-6.4 [facility] ([place]) Comment on above: Performed By: #### L IPID, GFR, A1C, CMP #### Sam[place] [address] [address] CMPon 10-26-2022 Albumin Level 3.7 G/dL Normal 3.4-4.8 [facility] ([place]) Comment on above: Performed By: #### L IPID, GFR, A1C, CMP #### [address] [address] Albumin/Globulin [Mass ratio] 1.3 {ratio} Normal 1.1-2.5 [facility] ([place]) Comment on above: Performed By: #### L IPID, GFR, A1C, CMP #### [address] [address] ALP [Catalytic activity/Vol] 48 U/L Normal 40-135 [facility] ([place]) Comment on above: Performed By: #### L IPID, GFR, A1C, CMP #### [address] [address] ALT [Catalytic activity/Vol] 34 U/L Normal 16-63 [facility] ([place]) Comment on above: Performed By: #### L IPID, GFR, A1C, CMP #### [address] [address] AST [Catalytic activity/Vol] 27 U/L Normal 10-40 [facility] ([place]) Comment on above: Performed By: #### L IPID, GFR, A1C, CMP #### [address] [address] Bili Total 0.5 mg/dL Normal 0.2-1.0 [facility] ([place]) Comment on above: Result Comment: Use of this assay is not recommended for patients undergoing treatment with eltrombopag due to the potential for falsely elevated results. Performed By: #### L IPID, GFR, A1C, CMP #### [address] [address] BUN/Creatinine Ratio 15 ratio Normal 7-27 [facility] ([place]) Comment on above: Performed By: #### L IPID, GFR, A1C, CMP #### [address] [address] Calcium [Mass/Vol] 8.9 mg/dL Normal 8.4-10.2 [facility] ([place]) Comment on above: Performed By: #### L IPID, GFR, A1C, CMP #### [address] [address] Chloride [Moles/Vol] 102 mmol/L Normal 98-107 [facility] ([place]) Comment on above: Performed By: #### L IPID, GFR, A1C, CMP #### [address] [address] CO2 [Moles/Vol] 29 mmol/L Normal 23-31 [facility] ([place]) Comment on above: Performed By: #### L IPID, GFR, A1C, CMP #### [address] [address] Creatinine [Mass/Vol] 1.08 mg/dL Normal 0.70-1.30 [facility] ([place]) Comment on above: Performed By: #### L IPID, GFR, A1C, CMP #### [address] [address] Electrolyte Balance 9.0 mEq/L Normal 4.0-15.0 [facility] ([place]) Comment on above: Performed By: #### L IPID, GFR, A1C, CMP #### [address] [address] Globulin 2.8 G/dL Normal [facility] ([place]) Comment on above: Performed By: #### L IPID, GFR, A1C, CMP #### [address] [address] Glucose [Mass/Vol] 180 mg/dL High 83-110 [facility] ([place]) Comment on above: Performed By: #### L IPID, GFR, A1C, CMP #### [address] [address] Potassium [Moles/Vol] 4.0 mmol/L Normal 3.5-5.1 [facility] ([place]) Comment on above: Performed By: #### L IPID, GFR, A1C, CMP #### [address] [address] Sodium [Moles/Vol] 140 mmol/L Normal 136-145 [facility] ([place]) Comment on above: Performed By: #### L IPID, GFR, A1C, CMP #### [facility] [address] [place], [place] [address] Total Protein 6.5 G/dL Normal 6.4-8.2 [facility] ([place]) Comment on above: Performed By: #### L IPID, GFR, A1C, CMP #### [facility] [address] [place], [place] [address] Urea nitrogen [Mass/Vol] 16 mg/dL Normal 7-18 [facility] ([place]) Comment on above: Performed By: #### L IPID, GFR, A1C, CMP #### [place] [address] [place], [place] [address] LABORATORYOrdered By: SYSTEM SYSTEM on 10-26-2022 Albumin [...] [Mass/Vol] 207 mg/dL High 0-200 [facility] ([place]) Comment on above: Result Comment: Chol esterol Reference Interval: Less than 200 Desirable 200-239 Borderline high risk 240 and above High risk Performed By: #### L IPID, GFR, A1C, CMP #### [place] [address] [place], [place] [address] Cholesterol in HDL [Mass/Vol] 32 mg/dL Low 40-60 [facility] ([place]) Comment on above: Performed By: #### L IPID, GFR, A1C, CMP #### [facility] [address] [place], [place] [address] Cholesterol in LDL [Mass/Vol] 142 mg/dL High 0-130 [facility] ([place]) Comment on above: Performed By: #### L IPID, GFR, A1C, CMP #### [facility] [place] [address] [place], [place] [address] Triglyceride [Mass/Vol] 166 mg/dL High 0-150 [facility] ([place]) Comment on above: Result Comment: Trig lyceride Reference Interval: Less than 150 Normal 150-199 Borderline high risk 200-499 High risk 500 or higher Very high risk Performed By: #### L IPID, GFR, A1C, CMP #### [place] [address] [place], [place] [address] LABORATORYOrdered By: Vilma Huff on 08-14-2021 Basophil, [...] OBSOLETEon 12-03-2020 OBSOLETE Refill (FAMPWS) AZAR TRIPLETT ([id number]) 1945 M Date Time Provider Department 12/03/20 [...] Allergies) Date Reviewed: 02/12/2020 [facility]ed [facility]: [facility] LAUREN [place] - Fully Assessed Reason for [...] Encounter Status:Closed by CONOR KENDRICK on 12/06/20 [facility] OBSOLETEon 09-06-2020 OBSOLETE Refill (FAMPWS) AZAR TRIPLETT ([id number]) 1945 M Date Time Provider Department 09/06/20 ROBERT WALKER III During your visit today, we recorded the following information about you: Sofiya Quinn [facility] 09/06/2020 10:27 AM Signed Patient has been identified by name and date of : Yes Pending Prescriptions Disp Refills HYDROCHLOROTHIAZIDE 12.5 MG CAPSULE 90 capsule 1 Sig: Take 1 capsule by mouth once daily. HERMILO: No RX INSTRUCTIONS: Patient aware RX will be sent to pharmacy. No need to notify patient. Sofiya Quinn [facility] Riri Shaw Ma 09/06/2020 11:15 AM Signed [facility] 02/12/2020 NOV 02/14/2021 Riri Kendrick APRN.JAH SEAMAN 09/06/2020 11:59 AM Signed The following approved medication requests have been transmitted electronically. Pending Prescriptions Disp Refills HYDROCHLOROTHIAZIDE 12.5 MG CAPSULE 90 capsule 1 Sig: Take 1 capsule by mouth once daily. HERMILO: No Conor Kendrick APRN.JAH SEAMAN Allergies As of Date: 09/06/2020 (No Known Allergies) Date Reviewed: 02/12/2020 Reviewed by: Terri ([facility]) LAUREN Jefferson - Fully Assessed Reason for [...] Status:Closed by CONOR KENDRICK on 09/06/20 Normal [facility] Vital Signs Date Time Vital Sign Value Performing Clinician Facility 08-06-2024 14:48-0400 Body mass index (BMI) [Ratio] 29.62 kg/m2 Luis Donahue MD Work Phone: [facility] 08-06-2024 14:48-0400 Body temperature 98.01 [degF] Luis Donahue MD Work Phone: [facility] 08-06-2024 14:48-0400 Body weight 80.74 kg Luis Donahue MD Work Phone: [facility] 08-06-2024 14:48-0400 Diastolic blood pressure 85 mm[Hg] Luis Donahue MD Work Phone: [facility] 08-06-2024 14:48-0400 Heart rate 67 /min Luis Donahue MD Work Phone: [phone] [place] [address] 08-06-2024 14:48-0400 Systolic blood pressure 169 mm[Hg] Luis Donahue MD Work Phone: [phone] [place] [address] 03-06-2024 13:23-0500 Body height 165.1 cm Luis Donahue MD Work Phone: [phone] [address] [place] [address] 03-06-2024 13:23-0500 Body mass index (BMI) [Ratio] 28.96 kg/m2 Luis Donahue MD Work Phone: 3(370)587-033394 [place] [address] 03-06-2024 13:23-0500 Body weight 78.93 kg Luis Donahue MD Work Phone: 0(386)655-639794 [place] [address] 03-06-2024 13:23-0500 Diastolic blood pressure 90 mm[Hg] Luis Donahue MD Work Phone: 3(629)224-874994 [place] [address] 03-06-2024 13:23-0500 Heart rate 82 /min Luis Donahue MD Work Phone: 7(401)111-987894 [place] [address] 03-06-2024 13:23-0500 Systolic blood pressure 165 mm[Hg] Luis Donahue MD Work Phone: 1(183)793-929994 [place] [address] 09-04-2023 10:54-0400 Body height 165.1 cm Luis Donahue MD Work Phone: 5(673)096-283694 [place] [address] 09-04-2023 10:54-0400 Body mass index (BMI) [Ratio] 30.87 kg/m2 Luis Donahue MD Work Phone: 7(677)712-972494 [place] [address] 09-04-2023 10:54-0400 Body temperature 98.2 [degF] Luis Donahue MD Work Phone: 8(241)930-155994 [place] [address] 09-04-2023 10:54-0400 Body weight 84.14 kg Luis Donahue MD Work Phone: 4(982)021-842694 [place] [address] 09-04-2023 10:54-0400 Diastolic blood pressure 81 mm[Hg] Luis Donahue MD Work Phone: [facility] 09-04-2023 10:54-0400 Heart rate 68 /min Luis Donahue MD Work Phone: [facility] 09-04-2023 10:54-0400 Systolic blood pressure 166 mm[Hg] Luis Donahue MD Work Phone: [facility] 08-17-2023 10:22-0400 Body height 167.[address] 08-17-2023 10:22-0400 Body mass index (BMI) [Ratio] 28.41 kg/m2 [address] 08-17-2023 10:22-0400 Body weight 79.[address] 07-07-2023 08:43-0500 Diastolic Blood Pressure Non-Invasive 80 mm[Hg] DR ARMEN SWEENEY MD [address] [place] [address] 07-07-2023 08:43-0500 Heart rate 83 /min DR ARMEN SWEENEY MD [address] 07-07-2023 08:43-0500 Respiratory rate 16 /min DR ARMEN SWEENEY MD [facility] 07-07-2023 08:43-0500 Systolic Blood Pressure Non-Invasive 142 mm[Hg] DR ARMEN SWEENEY MD [facility] 07-07-2023 05:56-0500 Heart rate 74 /min DR ARMEN SWEENEY MD [address] 07-07-2023 05:56-0500 Respiratory rate 16 /min DR ARMEN SWEENEY MD [facility] 07-07-2023 03:35-05[address] Cuff Size DR ARMEN SWEENEY MD [facility] 07-07-2023 03:35-[address] ARMEN SWEENEY MD [address] 07-07-2023 03:35-[address] ARMEN SWEENEY MD [address] [place] [address] 07-07-2023 03:35-0500 Body temperature 97.88 [degF] DR ARMEN SWEENEY MD [address] [place] [address] 07-07-2023 03:35-0500 Diastolic Blood Pressure Non-Invasive 75 mm[Hg] DR ARMEN SWEENEY MD [address] [place] [address] 07-07-2023 03:35-0500 Heart rate 79 /min DR ARMEN SWEENEY MD [address] [place] [address] 07-07-2023 03:35-0500 Reason For Taking VItal Signs DR ARMEN SWEENEY MD [address] [place] [address] 07-07-2023 03:35-0500 Respiratory rate 16 /min DR ARMEN SWEENEY MD [address] [place] [address] 07-07-2023 03:35-0500 Systolic Blood Pressure Non-Invasive 156 mm[Hg] DR ARMEN SWEENEY MD [address] [place] [address] 07-07-2023 02:40-0500 Diastolic Blood Pressure Non-Invasive 78 mm[Hg] DR ARMEN SWEENEY MD [address] [place] [address] 07-07-2023 02:40-0500 Systolic Blood Pressure Non-Invasive 145 mm[Hg] DR ARMEN SWEENEY MD [address] [place] [address] 07-06-2023 22:52-[address] Cuff Size DR ARMEN SWEENEY MD [address] [place] [address] 07-06-2023 22:52-[address] ARMEN SWEENEY MD [address] [place] [address] 07-06-2023 22:52-[address] ARMEN SWEENEY MD [address] 07-06-2023 22:52-0500 Body temperature 97.7 [degF] DR ARMEN SWEENEY MD [address] [place] [address] 07-06-2023 22:52-0500 Reason For Taking VItal Signs DR ARMEN SWEENEY MD [address] [place] [address] 07-06-2023 22:35-[address] ARMEN SWEENEY MD [address] [place] [address] 07-06-2023 22:35-0500 Reason For Taking VItal Signs DR ARMEN SWEENEY MD [address] [place] [address] 07-06-2023 19:35-05[address] Cuff Size DR ARMEN SWEENEY MD [address] [place] [address] 07-06-2023 19:35-[address] ARMEN SWEENEY MD [address] [place] [address] 07-06-2023 14:37-0500 Body temperature 97.7 [degF] DR ARMEN SWEENEY MD [address] [place] [address] 07-06-2023 01:01-0500 Body height 165.[address] ARMEN SWEENEY MD [address] [place] [address] 07-06-2023 01:01-0500 Body weight 77.[address] ARMEN SWEENEY MD [address] [place] [address] 07-06-2023 01:01-0500 Body weight 28.43 kg/m2 DR ARMEN SWEENEY MD [address] [place] [address] 07-05-2023 22:40-0500 Mean blood pressure 111 mm[Hg] DR ARMEN SWEENEY MD [address] [place] [address] 07-05-2023 15:44-0500 Mean blood pressure 109 mm[Hg] DR ARMEN SWEENEY MD [facility] 07-05-2023 14:55-0500 Mean blood pressure 108 mm[Hg] DR ARMEN SWEENEY MD [facility] 07-03-2023 09:32-0500 Heart rate 78 /min DR ARMEN SWEENEY MD [facility] 07-03-2023 09:32-0500 Heart rate 87 /min DR ARMEN SWEENEY MD [facility] 07-02-2023 18:23-0500 Heart rate 91 /min DR ARMEN SWEENEY MD [facility] 07-02-2023 12:39-0500 Body weight 77.[address] ARMEN SWEENEY MD [facility] 06-23-2023 08:31-0500 Body temperature 98.8 [degF] Guerda Alvarez MD Work Phone: [facility] 06-23-2023 08:31-0500 Diastolic blood pressure 78 mm[Hg] Guerda Alvarez MD Work Phone: [facility] 06-23-2023 08:31-0500 Heart rate 99 /min Guerda Alvarez MD Work Phone: [facility] 06-23-2023 08:31-0500 Respiratory rate 16 /min Guerda Alvarez MD Work Phone: [facility] 06-23-2023 08:31-0500 SaO2% (BldA) [Mass fraction] 97 % Guerda Alvarez MD Work Phone: [facility] 06-23-2023 08:31-0500 Systolic blood pressure 115 mm[Hg] Guerda Alvarez MD Work Phone: [facility] 06-22-2023 09:40-0500 Body height 165.1 cm Guerda Alvarez MD Work Phone: [facility] 06-22-2023 09:40-0500 Body mass index (BMI) [Ratio] 30.08 kg/m2 Guerda Alvarez MD Work Phone: [facility] 06-22-2023 09:40-0500 Body weight 82 kg Guerda Alvarez MD Work Phone: [facility] 06-14-2023 09:33-0500 Body height 165.1 cm Luis Doanhue MD Work Phone: [facility] 06-14-2023 09:33-0500 Body mass index (BMI) [Ratio] 29.84 kg/m2 Luis Donahue MD Work Phone: 8(882)360-333310 [place] [address] 06-14-2023 09:33-0500 Body temperature 97.5 [degF] Luis Donahue MD Work Phone: 9(299)353-024510 [place] [address] 06-14-2023 09:33-0500 Body weight 81.33 kg Luis Donahue MD Work Phone: 6(613)221-779310 [place] [address] 06-14-2023 09:33-0500 Diastolic blood pressure 95 mm[Hg] Luis Donahue MD Work Phone: 4(662)178-496010 [place] [address] 06-14-2023 09:33-0500 Heart rate 83 /min Luis Donahue MD Work Phone: 0(514)501-140710 [place] [address] 06-14-2023 09:33-0500 Systolic blood pressure 178 mm[Hg] Luis Donahue MD Work Phone: 3(474)417-761310 [place] [address] 05-02-2023 13:22-0500 Body height 165.[address] Jerry Parmar Work Phone: [facility] 05-02-2023 13:22-0500 Body mass index (BMI) [Ratio] 29.7 kg/m2 Dr. Jerry Parmar Work Phone: [facility] 05-02-2023 13:22-0500 Body weight 81.[address] Jerry Parmar Work Phone: [facility] 08-14-2021 03:00-0400 Diastolic blood pressure 48 mm[Hg] DR JAYDEN CHOWDARY DO [facility] 08-14-2021 03:00-0400 Mean blood pressure 77 mm[Hg] DR JAYDEN CHOWDARY DO [facility] 08-14-2021 03:00-0400 Systolic blood pressure 136 mm[Hg] DR JAYDEN CHOWDARY DO [facility] 08-14-2021 02:11-0400 Diastolic blood pressure 66 mm[Hg] DR JAYDEN CHOWDARY DO [facility] 08-14-2021 02:11-0400 Heart rate 100 /min DR JAYDEN CHOWDARY DO [facility] 08-14-2021 02:11-0400 Mean blood pressure 95 mm[Hg] DR JAYDEN CHOWDARY DO [facility] 08-14-2021 02:11-0400 Respiratory rate 14 /min DR JAYDEN CHOWDARY DO [facility] 08-14-2021 02:11-0400 Systolic blood pressure 153 mm[Hg] DR JAYDEN CHOWDARY DO [facility] 08-14-2021 01:15-0400 Body temperature 97.7 [degF] DR JAYDEN CHOWDARY DO [facility] 08-14-2021 01:15-0400 Diastolic blood pressure 76 mm[Hg] DR JAYDEN CHOWDARY DO [facility] 08-14-2021 01:15-0400 Heart rate 98 /min DR JAYDEN CHOWDARY DO [facility] 08-14-2021 01:15-0400 Mean blood pressure 96 mm[Hg] DR JAYDEN CHOWDARY DO [facility] 08-14-2021 01:15-0400 Respiratory rate 10 /min DR JAYDEN CHOWDARY DO [facility] 08-14-2021 01:15-0400 Systolic blood pressure 136 mm[Hg] DR JAYDEN CHOWDARY DO [facility] Encounters Encounter Date Encounter Type Care Provider Facility Start: 08-06-2024 End: 08-06-2024 ambulatory [facility] Start: 08-06-2024 End: 08-06-2024 Office outpatient visit 25 minutes Luis Donahue MD Work Phone: [facility] Comment on above: Coronary artery dise ase involving [place] coronary artery of [place] heart without angina pectoris; Cardiomyopathy, idiopathic (Multi); Nonrheumatic aortic valve stenosis; Single subsegmental pulmonary embolism without acute cor pulmonale; Ischemic cardiomyopathy; PAF (paroxysmal atrial fibrillation) (Multi) Start: 03-06-2024 End: 03-06-2024 ambulatory [facility] Start: 03-06-2024 End: 03-06-2024 Office outpatient visit 25 minutes Luis Donahue MD Work Phone: [facility] Comment on above: Ischemic cardiomyopa thy (Primary Dx); Coronary artery disease involving [place] coronary artery of [place] heart without angina pectoris; Cardiomyopathy, idiopathic (Multi); Nonrheumatic aortic valve stenosis; Single subsegmental pulmonary embolism without acute cor pulmonale; PAF (paroxysmal atrial fibrillation) (Multi) Start: 03-06-2024 End: 03-06-2024 ambulatory LUIS DONAHUE [facility] Start: 03-06-2024 End: 03-06-2024 Subsequent hospital visit by physician Emeli Echo Room 1 [facility] Comment on above: Coronary artery dise ase involving [place] coronary artery of [place] heart without angina pectoris; Cardiomyopathy, idiopathic (Multi); Nonrheumatic aortic valve stenosis; Single subsegmental pulmonary embolism without acute cor pulmonale PAF (paroxysmal atri al fibrillation) (Multi) Start: 09-04-2023 End: 09-04-2023 Office outpatient visit 40 minutes Luis Donahue MD Work Phone: [facility] Comment on above: Coronary artery dise ase involving [place] coronary artery of [place] heart without angina pectoris (Primary Dx); Cardiomyopathy, idiopathic (Multi); Nonrheumatic aortic valve stenosis; Single subsegmental pulmonary embolism without acute cor pulmonale (Multi) Start: 08-17-2023 End: 08-17-2023 Subsequent hospital visit by physician Sharath Koroma 3 [facility] Comment on above: Nonrheumatic aortic valve stenosis Start: 07-23-2023 End: 07-24-2023 ambulatory LORE MARQUES [facility] Start: 07-23-2023 End: 07-24-2023 ambulatory LORE RIVAS [facility] Start: 07-23-2023 End: 07-23-2023 Subsequent hospital visit by physician Asuncion [address] 1 [facility] Comment on above: Nonrheumatic aortic valve stenosis Start: 07-23-2023 End: 07-23-2023 Office outpatient new 60 minutes Lore Rivas MD Work Phone: [facility] Comment on above: Aortic valve disease (Primary Dx) Start: 07-19-2023 End: 07-20-2023 ambulatory LORE MARQUES CNP Facility:B Start: 07-02-2023 End: 07-07-2023 Evaluation and management of inpatient SEFERINO HERNANDEZ MD Facility:A Start: 07-02-2023 End: 07-07-2023 Evaluation and management of inpatient DR ARMEN SWEENEY MD [facility] Start: 06-19-2023 End: 06-23-2023 Evaluation and management of inpatient [facility] Start: 06-19-2023 End: 06-23-2023 Evaluation and management of inpatient Guerda Page MD Work Phone: [facility] PCU H6 Comment on above: Spondylolisthesis of lumbosacral region (Primary Dx) Start: 06-18-2023 End: 06-18-2023 ambulatory [facility] Start: 06-18-2023 End: 06-18-2023 Encounter for other preprocedural examination [facility] Start: 06-14-2023 End: 06-14-2023 Office outpatient new 60 minutes Luis Donahue MD Work Phone: [facility] Comment on above: PVC (premature ventr icular contraction) (Primary Dx); Preoperative cardiovascular examination; Essential hypertension; Diabetes mellitus type II, non insulin dependent (CMS/HCC); Abnormal EKG; Ischemic cardiomyopathy Start: 06-14-2023 End: 06-14-2023 Patient encounter status Luis Donahue MD Work Phone: [facility] Work Phone: Start: 06-14-2023 End: 06-14-2023 Subsequent hospital visit by physician Hud Echo [facility] 1 [facility] Comment on above: Abnormal EKG; Cardiac murmur, unspecified Start: 05-21-2023 End: 05-21-[address] Jerry Parmar Work Phone: [facility] Work Phone: Start: 05-21-2023 End: 05-21-[address] Jerry Parmar Work Phone: [facility] Work Phone: Start: 05-11-2023 End: 05-11-2023 ambulatory SEFERINO HERNANDEZ [facility] Start: 05-02-2023 End: 05-02-[address] Jerry Parmar Work Phone: [facility] Work Phone: Start: 04-24-2023 Telephone encounter Karol tong MD Work Phone: [facility] [place] Comment on above: Surgery Scheduling ( 06/19/2023) Start: 03-30-2023 End: 03-31-2023 ambulatory SEFERINO HERNANDEZ MD Facility:B Start: 03-30-2023 End: 03-30-2023 Patient encounter procedure SEFERINO HERNANDEZ MD [facility] Start: 11-09-2022 End: 11-10-2022 ambulatory SEFERINO HERNANDEZ MD Facility:B Start: 11-09-2022 End: 11-09-2022 Patient encounter procedure SEFERINO HERNANDEZ MD [facility] Start: 10-26-2022 End: 10-27-2022 ambulatory SEFERINO HERNANDEZ MD Facility:B Start: 10-26-2022 End: 10-26-2022 Patient encounter procedure SEFERINO HERNANDEZ MD [facility] Start: 08-14-2021 End: 08-14-2021 Emergency department patient visit DR JAYDEN CHOWDARY DO [facility] Start: 04-07-2021 End: 04-07-2021 Patient encounter procedure SEFERINO HERNANDEZ MD [facility] Procedures Date Procedure Procedure Detail [...] Aguillon facetectomy & foramotomy 1 segment lumbar uGerda Page MD Work Phone: Start: 06-19-2023 Glucose quantitative blood xcpt reagent strip Guerda Page MD Work Phone: Start: 06-18-2023 Antibody screen [facility]NA[facility] Comment on above: Performed By: #### L [id number] ####Securities Lending Trader: WINSTON HEDRICK ([id number])[facility] ([facility])[address] [place] [address] Start: 06-14-2023 Echo tthrc r-t 2d w/wom-mode [...] MD Repair of tendo achilles KURT ROSIO HERNANDEZ MD Spinal arthrodesis DR JACQUES SWEENEY MD Comment on above: L4-5 Plan of Treatment Date Care Activity Detail Author Start: 02-16-2025 End: 02-16-2025 Patient encounter procedure [facility] Start: 02-05-2025 End: 08-06-2025 Heart Transthoracic Transthoracic echo (TTE) complete Echocardiography Routine 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, idiopathic (Multi) Nonrheumatic aortic valve stenosis Single subsegmental pulmonary embolism without acute cor pulmonale Ischemic cardiomyopathy PAF (paroxysmal atrial fibrillation) (Multi) Expected: 02/05/2025 (Approximate), Expires: 08/06/2025 [facility] Service Area Work Phone: Comment on above: Expected: 02/05/2025 (Approximate), Expires: 08/06/2025 Start: 12-29-2024 Influenza vaccination Influenz a Vaccine (Season Ended) [facility] Start: 07-16-2024 End: 07-16-2024 Patient encounter procedure 07/16/2024 1:10 PM EDT Office Visit [facility] [address] [place] [address] Luis Donahue MD [address] [place] [address] [facility] Start: 03-06-2024 End: 09-03-2024 US Heart Transthoracic [facility] Service Area Work Phone: Comment on above: Expected: 03/06/2024 (Approximate), Expires: 09/03/2024 Once for 1 Occurrenc es starting 03/06/2024 until 03/06/2024 Start: 03-06-2024 End: 03-06-2024 Patient encounter procedure [facility] Start: 12-30-2023 COVID-19 Vaccine ( season) COVID-19 Vaccine () [facility] Start: 12-30-2023 Influenza vaccination [facility] Start: 09-18-2023 Hemoglobin A1c measurement Diabetes: Hemoglobin A1C [facility] Start: 07-26-2023 End: 07-26-2023 Patient encounter procedure [facility] Start: 06-19-2023 End: 06-19-2023 Admission to same day surgery center 06/19/2023 7:30 AM EST - 06/19/2023 12:30 PM EST Surgery [facility] [address] [place] [address] Guerda Page MD [address] [place] [address] ANTERIOR LUMBAR INTERBODY FUSION LUMBAR 4/5-SACRAL 1, INTERBODY DEVICE BONE MORPHOGENETIC PROTEIN, POSTERIOR FUSION LUMBAR 4/5-SACRAL 1, DECOMPRESSION LUMBAR 7-3-7-4-5-SACRAL 1, PEDICLE INSTRUMENTATION AND LOCAL BONE [[id number] ([facility] )] [facility] Comment on above: ANTERIOR LUMBAR INTE RBODY FUSION LUMBAR 4/5-SACRAL 1, INTERBODY DEVICE BONE MORPHOGENETIC PROTEIN, POSTERIOR FUSION LUMBAR 4/5-SACRAL 1, DECOMPRESSION LUMBAR 2-1-9-4-5-SACRAL 1, PEDICLE INSTRUMENTATION AND LOCAL BONE [[id number] ([facility] )] Start: 06-19-2023 End: 06-19-2023 Arthrodesis [...] Encounter [facility] [address] [place] [address] Guerda Page MD [address] [facility] [place] [address] [facility] Start: 06-18-2023 End: 06-18-2023 Admission to establishment 06/18/2023 4:30 PM EST Pre-Admission Testing [facility] Pre-Admit Testing [address] [place] [address] [facility] Start: 12-29-2022 COVID-19 Vaccine ( season) COVID-19 Vaccine ( season) [facility] Start: 12-29-2022 Influenza vaccination Influenza Vacc ine (#1) [facility] Start: 05-07-2020 Hemoglobin A1c measurement Diabetes: Hemoglobin A1C [facility] Start: 08-11-2018 RSV High Risk: (Elde rly (60+) or Population) (1 - 1-dose 75+ series) RSV High Risk: (Elderly (60+) or Population) (1 - 1-dose 75+ series) [facility] Start: 08-30-2015 DTaP/Tdap/Td Vaccine s (2 - Tdap) DTaP/Tdap/Td Vaccines (2 - Tdap) [facility] Start: 08-11-2008 Pneumococcal Vaccine : 65+ Years (1 of 1 - PCV) Pneumococcal Vaccine: 65+ Years (1 of 1 - PCV) [facility] Start: 2003 RSV Immunization age d 60 or older (1 - 1-dose 60+ series) RSV Immunization aged 60 or older (1 - 1-dose 60+ series) [facility] Start: 2003 RSV patient s and/or patients aged 60+ years (1 - 1-dose 60+ series) RSV patients and/or patients aged 60+ years (1 - 1-dose 60+ series) [facility] Start: 08-11-1993 Zoster Vaccines (1 of 2) Zoster Vacc conchis (1 of 2) [facility] Start: 08-11-1962 DTaP/Tdap/Td Vaccine s (1 - Tdap) DTaP/Tdap/Td Vaccines (1 - Tdap) [facility] Start: 08-11-1962 Pneumococcal vaccination Pneum ococcal Vaccine (1 of 2 - PCV) [facility] Start: 08-11-1962 Urine screening for protein Diabetes: Urine Protein Screening [facility] Start: 08-11-1961 Hepatitis C screening Hepatitis C Sc reening [facility] Start: 1955 Depression Screening Depression Scre ening [facility] Start: 08-11-1953 Diabetic foot examination Diabetes: Foot Exam [facility] Start: 08-11-1953 Glaucoma screening Diabetes: R etinopathy Screening [facility] Start: 08-11-1949 Pneumococcal Vaccine : 65+ Years (1 - PCV) Pneumococcal Vaccine: 65+ Years (1 - PCV) [facility] Start: 08-11-1949 Pneumococcal Vaccine : 65+ Years (1 of 2 - PCV) Pneumococcal Vaccine: 65+ Years (1 of 2 - PCV) [facility] Start: 1943 Lipid panel Lipid Panel [facility] Start: 1943 Urine screening for protein Diabetes: Urine Protein Screening [facility] Start: 1943 Yearly Adult Physical Yearly Adult P hysical [facility] ECG 12 lead (Clinic Performed) ECG 12 lead (Clinic Performed) ECG Routine Coronary artery disease involving [place] coronary artery of [place] heart without angina pectoris 03/06/2024 1:40 PM EST [facility] Area Work Phone: End: 03-06-2024 Holter monitor study [facility] Work Phone: Comment on above: Once for 1 Occurrenc es starting 03/06/2024 until 03/06/2024 End: 08-17-2023 Stress cardiac echo study report [facility] Work Phone: Comment on above: Once for 1 Occurrenc es starting 08/17/2023 until 08/17/2023 Immunizations Immunization Date Immunization Notes Care Provider [facility] 09-07-2020 SARS-CoV-2 mRNA (tozinameran) vaccine SEFERINO HERNANDEZ MD [facility] 08-18-2020 SARS-CoV-2 mRNA (tozinamerarenate) vaccine SEFERINO HERNANDEZ MD [facility] Payers Date Payer Category Payer Sharing Agreements [facility] [employer] [address] [place] [address] [id number] 2023 Unknown [id number] 2023 Unknown [id number] 2023 Unknown [id number] 2022 Unknown [id number] 1943 Unknown [id number] 51 1943 Unknown [id number] 27 1943 Unknown [id number] 27 1943 Unknown [id number] [id number] 27 1943 Unknown [id number] 27 1943 Unknown [id number] [id number] 27 1943 Unknown [id number] [id number] 245 1943 Unknown [id number] [id number] 245 1943 Unknown [id number] [id number] 245 1943 Unknown [id number] [id number] 242 1943 Unknown [id number] [id number] 242 1943 Unknown [id number] [id number] 242 1943 Unknown [id number] 242 Self-pay SELF PAY INSURANCE [id number] Social History Date Type Detail Facility Start: 04-05-2021 End: 06-14-2023 Never smoked tobacco (finding) [facility] Sex Assigned At [facility] Start: 05-02-2023 [facility] Start: 1945 Sex Assigned At Male [facility] Start: 1945 Sex Assigned At Not on file [facility] Start: 06-14-2023 End: 03-06-2024 Gender identity Not on file [facility] Start: 06-14-2023 End: 06-18-2023 Tobacco use and exposure Smokeless tobacco non-user [facility] Work Phone: Start: 06-14-2023 End: 07-26-2023 Alcohol intake Current drinker of alcohol (finding) [facility] Work Phone: Start: 06-14-2023 End: 03-06-2024 Alcohol intake [facility] Work Phone: Start: 06-04-2023 End: 08-06-2024 Exposure to SARS-CoV-2 (event) Not sure [facility] Start: 09-04-2023 End: 08-06-2024 Alcoholic beverage intake Ex-drinker (finding) [facility] Work Phone: Medical Equipment Procedure Code Equipment Code Equipment Origin al Text Equipment Identifier Dates Cage Spine Lumba r 14x17.5x23mm - [id number] Start: 06-19-2023 Screw Spinal [id number] - [id number] Start: 06-19-2023 Screw Set Ti Spi nal Break Off - [id number] Start: 06-19-2023 Jody Spnl [place] oy Bent 5.5x60 - [id number] Start: 06-19-2023 Functional Status Date Assessment Result Facility 07-07-2023 Functional Status Room check performed [facility] 07-07-2023 Functional Status Up to chair [facility] 07[facility]07-2023 [facility] 07-06-2023 Functional Status [facility] 07-06-2023 Functional Status [facility] 07-06-2023 Functional Status 7pm-7am [facility] 07-06-2023 Functional Status Done [facility] 07-06-2023 Functional Status Maintained [facility] 07-06-2023 Functional Status Mod I [facility] 07-06-2023 Functional Status [facility] 07-06-2023 Functional Status [facility] 07-06-2023 Functional Status [facility] 07-06-2023 Functional Status Sensory Deficits None A [facility] 07-05-2023 Functional Status Jael Care Moderate assi stance [facility] 07-05-2023 Functional Status [facility] 07-05-2023 Functional Status pt's son [facility] 07-05-2023 Functional Status Independent [facility] 07-04-2023 Functional Status [facility] 07-04-2023 Functional Status [facility] 07-04-2023 Functional Status Mobility Keyanna tance Level Supervision [facility] 07-04-2023 Functional Status [facility] 07-04-2023 Functional Status [facility] 07-03-2023 Functional Status [facility] 07-03-2023 Functional Status [facility] 08-14-2021 Functional Status [facility] 08-14-2021 Functional Status [facility] Mental Status Date Assessment Result Facility 07-07-2023 Mental Status Orientation Oriented x 4 [facility] 07-07-2023 Mental Status [facility] 07-06-2023 Mental Status [facility] 07-06-2023 Mental Status [facility] 08-14-2021 Mental Status [facility] 08-14-2021 Mental Status [facility] Clinical Notes 10-18-2020 to 08-06-2024 [...] idiopathic (Multi) (09/03/2023), Coronary artery disease involving [place] coronary artery of [place] heart without angina pectoris (07/26/2023), Diabetes mellitus [...] Transthoracic echo (TTE) complete Result Date: 03/07/2024 [facility] [place], [place] [address] and TRANSTHORACIC ECHOCARDIOGRAM REPORT Patient Name: AZAR TRIPLETT Reading Physician: [id number] Luis Donahue MD Study Date: 03/06/2024 Ordering Provider: [id number] LUIS DONAHUE MRN/PID: [id number] Fellow: Nurse: Date of /Age: 4 1945 Director Of Digital Technology: Shamika Farley andrew CS Gender assigned at M Additional Staff: : Height: 165.10 cm Admit Date: 03/06/2024 Weight: 83.91 kg Admission Status: Outpatient BSA / BMI: 1.91 m2 / 30.79 kg/m2 Blood Pressure: / Department Location: [facility] Study Type: TRANSTHORACIC ECHO (TTE) COMPLETE Diagnosis/ICD: Unspecified atrial fibrillation-I48.91; Nonrheumatic aortic (valve) stenosis-I35.0 Indication: Atrial Fibrillation CPT Code: Echo Complete w Full Doppler-[id number] Study Detail: The following Echo studies were [...] LA Area A2C: 19.9 cm2 LA [place] A4C: 5.4 cm LA [place] A2C: 4.9 cm LA Vol A4C: 61.9 ml LA Vol A2C: 62.9 ml LA Vol Index BSA: 32.6 ml/m2 RA VOLUME BY A/L METHOD: Normal Ranges: RA Vol A4C: 23.3 ml (8.3-19.5ml) RA Vol Index A4C: 12.2 ml/m2 RA Area A4C: 11.1 cm2 RA [place] A4C: 4.5 cm LV SYSTOLIC FUNCTION BY [...] m/s AORTA: Asc Ao Diam 3.52 cm [id number] Luis Donahue MD Electronically signed on 03/07/2024 at 7:40:35 AM Wall Scoring Final Echocardiogram Stress Test Result Date: 08/20/2023 [facility], [address] [place] [address] and Dobutamine Stress Echo Patient Name: AZAR TRIPLETT Ordering Provider: [id number] DONAHUE Study Date: 08/17/2023 Reading Physician: [id number] Donahue MD MRN/PID: [id number] Supervising Physician: [id number] Juan Edward MD Fellow: Date of /Age: 4 1945 / 78 years Fellow: Gender: M Nurse: Ilana Ruth RN Admit Date: 08/17/2023 [employer] Groove Machine Operator: Admission Status: Outpatient Director Of Digital Technology: Vesta Farmer RDCS Height: 165.10 cm Technologist: Bret Frank CVT Weight: 77.11 kg Additional Staff: BSA: 1.85 m2 BMI: 28.29 kg/m2 Patient Location: [facility] Non Invasive Study Type: ECHOCARDIOGRAM STRESS TEST [...] PSH includes recent spinal surgery. Allergies: None. MS Location/Type: MS on 07/06/2023 PCI and Stent: PCI performed [...] evidence for ischemia at a maximal infusion. [id number] Luis Donahue MD Electronically signed on 08/20/2023 at 2:34:29 PM Final Assessment and Recommendations Assessment/Plan 1. Coronary artery disease involving [place] coronary artery of [place] heart without angina pectoris The patient's CAD, [...] for stroke prophylaxis based upon their present [id number] score, the risks and benefits of which [...] as documented above and communicating with other [facility] professionals. I have discussed the results of laboratory, radiology, and cardiology studies with the patient and their family/caregiver. documented in this encounter [facility] Work Phone: 03-06-2024 History of Present [...] idiopathic (Multi) (09/03/2023), Coronary artery disease involving [place] coronary artery of [place] heart without angina pectoris (07/26/2023), Diabetes mellitus [...] Echo: Echocardiogram Stress Test Result Date: 08/20/2023 [facility], [address] [place] [address] and Dobutamine Stress Echo Patient Name: AZAR TRIPLETT Ordering Provider: [id number] LUIS DONAHUE Study Date: 08/17/2023 Reading Physician: [id number] Donahue MD MRN/PID: [id number] Supervising Physician: [id number] Juan Edward MD Fellow: Date of /Age: 4 1945 / 78 years Fellow: Gender: M Nurse: Ilana Ruth RN Admit Date: 08/17/2023 Rip And Groove Machine Operator: Admission Status: Outpatient Director Of Digital Technology: Vesta Farmer RDCS Height: 165.10 cm Technologist: Bret Frank CVT Weight: 77.11 kg Additional Staff: BSA: 1.85 m2 BMI: 28.29 kg/m2 Patient Location: [facility] Non Invasive Study Type: ECHOCARDIOGRAM STRESS TEST [...] PSH includes recent spinal surgery. Allergies: None. MS Location/Type: MS on 07/06/2023 PCI and Stent: PCI performed [...] evidence for ischemia at a maximal infusion. [id number] Donahue MD Electronically signed on 08/20/2023 at 2:34:29 PM Final Transthoracic Echo (TTE) Complete Result Date: 06/14/2023 [facility] [place] [address] and TRANSTHORACIC ECHOCARDIOGRAM REPORT Patient Name: AZAR TRIPLETTSANAM Guevara Physician: Ricky Donahue MD Study Date: 06/14/2023 Ordering Provider: Ricky DONAHUE MRN/PID: [id number] Fellow: Nurse: Date of /Age: 4 1945 / years Director Of Digital Technology: LENA Gender: M Additional Staff: Height: 165.10 cm Admit Date: 06/14/2023 Weight: 81.19 kg Admission Status: Outpatient BSA / BMI: 1.89 m2 / 29.79 kg/m2 Department Location: [facility] Blood Pressure: 178 /95 mmHg Study Type: TRANSTHORACIC ECHO (TTE) COMPLETE Diagnosis/ICD: Abnormal electrocardiogram [ECG] [EKG]-R94.31; Cardiac murmur, unspecified-R01.1 Indication: Abnormal EKG, Heart Murmur CPT Code: Echo Complete w Full Doppler-[id number] Study Detail: The following Echo studies were [...] LA Area A2C: 19.1 cm2 LA [place] A4C: 5.6 cm LA [place] A2C: 5.5 cm LA Vol A4C: 70.4 ml LA Vol A2C: 53.2 ml RA VOLUME BY A/L METHOD: Normal Ranges: RA Vol A4C: 16.3 ml (8.3-19.5ml) RA Vol Index A4C: 8.7 ml/m2 RA Area A4C: 9.4 cm2 RA [place] A4C: 4.6 cm LV SYSTOLIC FUNCTION BY [...] mmHg AORTA: Asc Ao Diam 3.18 cm [id number] Luis Donahue MD Electronically signed on 06/14/2023 at 10:49:57 AM Wall Scoring Final Assessment and Recommendations Assessment/Plan 1. Coronary artery disease involving [place] coronary artery of [place] heart without angina pectoris The patient's CAD, [...] as documented above and communicating with other [facility] professionals. I have discussed the results of laboratory, radiology, and cardiology studies with the patient and their family/caregiver. documented in this encounter [facility] Work Phone: 09-04-2023 History of Present illness Narrative Chief Complaint: Cardiomyopathy History of Present Illness Azar Triplett is a 78 y.o. male presenting with AVENDANO s/p NICOLE LAD 07/06/23. [place] no improvement. Subsequently Dx moderate aortic stenosis and Ef 40-45% and not severe by dobtamine stress echo. Incidental finding of segmental PE on CT and Rx Eliquis. Denies CP or AVENDANO, no edema. Previous History Past Medical History: He has a past medical history of Abnormal EKG (06/14/2023), Cardiomyopathy, idiopathic (Multi) (09/03/2023), Coronary artery disease involving [place] coronary artery of [place] heart without angina pectoris (07/26/2023), Diabetes mellitus [...] Echo: Echocardiogram Stress Test Result Date: 08/20/2023 [facility], [address] [place] [address] and Dobutamine Stress Echo Patient Name: AZAR TRIPLETT Ordering Provider: [id number] LUIS DONAHUE Study Date: 08/17/2023 Reading Physician: [id number] Donahue MD MRN/PID: [id number] Supervising Physician: [id number] Juan Edward MD Fellow: Date of /Age: 4 1945 / 78 years Fellow: Gender: M Nurse: Ilana Ruth rug receiving clerk Date: 08/17/2023 Rip And Groove Machine Operator: Admission Status: Outpatient Director Of Digital Technology: Vesta Farmer RDCS Height: 165.10 cm Technologist: Bret Frank CVT Weight: 77.11 kg Additional Staff: BSA: 1.85 m2 BMI: 28.29 kg/m2 Patient Location: [facility] Non Invasive Study Type: ECHOCARDIOGRAM STRESS TEST [...] PSH includes recent spinal surgery. Allergies: None. MS Location/Type: MS on 07/06/2023 PCI and Stent: PCI performed [...] evidence for ischemia at a maximal infusion. [id number] Donahue MD Electronically signed on 08/20/2023 at 2:34:29 PM Final Transthoracic Echo (TTE) Complete Result Date: 06/14/2023 [facility] [place], [place] [address] and TRANSTHORACIC ECHOCARDIOGRAM REPORT Patient Name: AZAR TRIPLETT Reading Physician: Ricky Donahue MD Study Date: 06/14/2023 Ordering Provider: Ricky DONAHUE MRN/PID: [id number] Fellow: Nurse: Date of /Age: 4 1945 / 77 years Director Of Digital Technology: R Gender: M Additional Staff: Height: 165.10 cm Admit Date: 06/14/2023 Weight: 81.19 kg Admission Status: Outpatient BSA / BMI: 1.89 m2 / 29.79 kg/m2 Department Location: [facility] Blood Pressure: 178 /95 mmHg Study Type: TRANSTHORACIC ECHO (TTE) COMPLETE Diagnosis/ICD: Abnormal electrocardiogram [ECG] [EKG]-R94.31; Cardiac murmur, unspecified-R01.1 Indication: Abnormal EKG, Heart Murmur CPT Code: Echo Complete w Full Doppler-[id number] Study Detail: The following Echo studies were [...] LA Area A2C: 19.1 cm2 LA [place] A4C: 5.6 cm LA [place] A2C: 5.5 cm LA Vol A4C: 70.4 ml LA Vol A2C: 53.2 ml RA VOLUME BY A/L METHOD: Normal Ranges: RA Vol A4C: 16.3 ml (8.3-19.5ml) RA Vol Index A4C: 8.7 ml/m2 RA Area A4C: 9.4 cm2 RA [place] A4C: 4.6 cm LV SYSTOLIC FUNCTION BY [...] mmHg AORTA: Asc Ao Diam 3.18 cm [id number] Luis Donahue MD Electronically signed on 06/14/2023 at 10:49:57 AM Wall Scoring Final Assessment and Recommendations Assessment/Plan 1. Coronary artery disease involving [place] coronary artery of [place] heart without angina pectoris The patient's CAD, [...] as documented above and communicating with other [facility] professionals. I have discussed the results of laboratory, radiology, and cardiology studies with the patient and their family/caregiver. documented in this encounter [facility] Work Phone: 09-04-2023 Miscellaneous Notes Addended by: LUIS DONAHUE on: 09/04/2023 11:22 AM Modules accepted: Orders documented in this encounter [facility] Work Phone: 09-04-2023 Note Addended by: LUIS DONAHUE on: 09/04/2023 11:22 AM Modules accepted: Orders [facility] Work Phone: 07-23-2023 History of Present illness Narrative Images from the original note were not included. Cardio: Agustina HPI: 77-year-old male with past medical history of hypertension, MS, CAD s/p PCI, diabetes mellitus, PVD who [...] 3.05 m/s - CT TAVR: Pending - [facility]: 07/06/2023 PCI of LAD - dental [...] male with past medical history of hypertension, MS, CAD s/p PCI, diabetes mellitus, PVD who [...] procedure, including but not limited to stroke, MS, pericardial tamponade, vascular complications, infection and were [...] physical exam or was physically present for davis and critical portions performed by the resident/fellow. I reviewed the resident/fellow's documentation and discussed the patient with the resident/fellow. I agree with the resident/fellow's medical decision making as documented in the note. Mr Triplett is an 77 y.o. man who is a patient of Dr. Seferino Hernandez; Dr. Luis Donahue is his section leader. I have been asked to see and [...] With regards to documented in this encounter [facility] Work Phone: 07-07-2023 Discharge summary Date of Service 07/07/2023 Discharge Diagnosis Vasovagal syncope CAD, s/p PCI [LAD/LCx] Elevated troponin, type II MS Mild to moderate aortic stenosis- valve area by VTI is 1.2 cm Hypertension Type 2 diabetes mellitus Recent thoracic/lumbar surgery [06/19/2023] Peripheral vascular disease Hospital Course Patient is a 77-year-old male speaking male with past medical history consistent with type 2 diabetes mellitus, peripheral vascular disease, hypertension who presented to [facility] from his routine orthopedic visit following [...] made contact with his orthopedic surgeon at [facility] [Dr. Page] who cleared patient to initiate antiplatelet therapy. He underwent LHC on 07/05/2023 where he had PCI to LCx, followed by PCI to LAD on 07/18/2023. He was started on aspirin, Plavix and atorvastatin for his CAD. His home hydrochlorothiazide was discontinued in order to initiate carvedilol for his systolic heart failure. Patient had a prior echocardiogram done with his section leader [Dr. Donahue] that was consistent with moderate severe aortic stenosis. After discussion with the patient, he has decided to pursue TAVR with his section leader in the outpatient setting. PT/OT was consulted given patient was in a SNF postoperatively. He had been cleared to return home on discharge. His hospital course was otherwise uncomplicated. On today's encounter he was resting comfortably in his bedside chair without any acute concerns. He is medically fit for discharge to continue follow-up with his PCP and primary section leader. Allergies NKA Procedures PCI to LCx [07/05/2023] [...] replacement which can be discussed with your section leader. Please start taking aspirin and Plavix to [...] Hospital follow up Where: [address] [place] [address] Follow Up with SEFERINO HERNANDEZ MD When Within 5 to 7 days Where: [address] [place] [address]- Follow Up with [facility] When Why: The Cardiac Rehab department will call you to schedule you for phase 2. We left you a brochure with information about cardiac rehab. If you have any questions please call [phone]. Where: [address] [address]- Follow Up Appointments No qualifying data available. [...] CHARLINE ROGERS MD on 07/07/2023 12:32 PM [facility] 07-07-2023 Hospital Discharge instructions Patient Education 07/07/2023 [...] need to report the following to your section leader: Any draining or oozing from the site [...] Document Reviewed: 04/17/2014 ExitCare Patient Information 2014 [employer]. This information is not intended to replace advice given to you by your health care provider. Make sure you discuss any questions you have with your health care provider. Follow Up Care 07/02/2023 12:22:37 With:SEFERINO HERNANDEZ MD Address: [address] [facility] [address] [facility] [place] [address]- When:5 to 7 days With:LUIS DONAHUE MD Address: [address] [place] [address] When:07/20/2023 Comments:Hospital follow up With:[facility] Address: [address] [address]- When: Unknown Comments:The Cardiac Rehab department will call you to schedule you for phase 2. We left you a brochure with information about cardiac rehab. If you have any questions please call [phone]. [facility] 07-07-2023 Discharge summary Date of Service 07/07/2023 Discharge Diagnosis Vasovagal syncope CAD, s/p PCI [LAD/LCx] Elevated troponin, type II MS Mild to moderate aortic stenosis- valve area by VTI is 1.2 cm Hypertension Type 2 diabetes mellitus Recent thoracic/lumbar surgery [06/19/2023] Peripheral vascular disease Hospital Course Patient is a 77-year-old male speaking male with past medical history consistent with type 2 diabetes mellitus, peripheral vascular disease, hypertension who presented to [facility] from his routine orthopedic visit following [...] made contact with his orthopedic surgeon at [facility] [Dr. Page] who cleared patient to initiate antiplatelet therapy. He underwent LHC on 07/05/2023 where he had PCI to LCx, followed by PCI to LAD on 07/18/2023. He was started on aspirin, Plavix and atorvastatin for his CAD. His home hydrochlorothiazide was discontinued in order to initiate carvedilol for his systolic heart failure. Patient had a prior echocardiogram done with his section leader [Dr. Donahue] that was consistent with moderate severe aortic stenosis. After discussion with the patient, he has decided to pursue TAVR with his section leader in the outpatient setting. PT/OT was consulted given patient was in a SNF postoperatively. He had been cleared to return home on discharge. His hospital course was otherwise uncomplicated. On today's encounter he was resting comfortably in his bedside chair without any acute concerns. He is medically fit for discharge to continue follow-up with his PCP and primary section leader. Allergies NKA Procedures PCI to LCx [07/05/2023] [...] replacement which can be discussed with your section leader. Please start taking aspirin and Plavix to [...] Hospital follow up Where: [address] [place] [address] Follow Up with SEFERINO HERNANDEZ MD When Within 5 to 7 days Where: [address] [facility] [place] [address]- Follow Up with [facility] When Why: The Cardiac Rehab department will call you to schedule you for phase 2. We left you a brochure with information about cardiac rehab. If you have any questions please call [phone]. Where: [address] [address]- Follow Up Appointments No qualifying data available. [...] CHARLINE ROGERS MD on 07/07/2023 12:32 PM [facility] 07-07-2023 Note Discharge Instructions Thank you for allowing [facility] to assist you with your healthcare needs. [...] replacement which can be discussed with your section leader. Please start taking aspirin and Plavix to [...] Hospital follow up Where: [address] [place] [address] Follow Up with SEFERINO HERNANDEZ MD When Within 5 to 7 days Where: [address] [facility] [place] [address]- Follow Up with [facility] When Why: The Cardiac Rehab department will call you to schedule you for phase 2. We left you a brochure with information about cardiac rehab. If you have any questions please call [phone]. Where: [address] [address]- The Following Activity and Diet Have Been [...] Duration: 30 Days Refills: 11 Pickup at [facility] New atorvastatin (atorvastatin 40 mg oral tablet) 1 tab(s) by mouth Once a day Duration: 30 Days Refills: 1 Pickup at [facility] New carvedilol (Coreg 3.125 mg oral tablet) 1 tab(s) by mouth Twice daily with meals Duration: 30 Days Refills: 1 Pickup at [facility] New clopidogrel (Plavix 75 mg oral tablet) 1 tab(s) by mouth Once a day Duration: 30 Days Refills: 11 Pickup at [facility] Unchanged acetaminophen (acetaminophen 325 mg [...] for as needed for constipation Pharmacy Information [facility]: [address] [place], [place] [id number] [phone] What How Much When Comments Stop Taking [...] may report side effects to FDA at 1-268-QOV-8558. What other drugs will affect clopidogrel? Sometimes it is not safe to use certain medications at the same time. Some drugs can affect your blood levels of other drugs you take, which may increase side effects or make the medications less effective. Tell your doctor about all your other medicines, especially: a stomach acid asphalt blender such as omeprazole, Nexium, or Prilosec; an antidepressant such as citalopram, fluoxetine, sertraline, Cymbalta, Effexor, Lexapro, Pristiq, or Prozac; rifampin; a blood thinner--warfarin, Coumadin, Jantoven; or NSAIDs (nonsteroidal anti-inflammatory drugs)--aspirin, ibuprofen (Advil, Motrin), naproxen (Aleve), celecoxib, diclofenac, indomethacin, meloxicam, and others. This list is not complete. Other drugs may affect clopidogrel, including prescription and nbyb-cnl-swnjxby medicines, vitamins, and herbal products. Not all [...] to ensure that the information provided by [employer]') is accurate, up-to-date, and complete, but no guarantee is made to that effect. Drug information contained herein may be time sensitive. [employer] information has been compiled for use by healthcare practitioners and consumers in the [place] and therefore [employer] does not warrant that uses outside of the [place] are appropriate, unless specifically indicated otherwise. [employer] drug information does not endorse drugs, diagnose patients or recommend therapy. [employer] drug information is an informational resource designed [...] effective or appropriate for any given patient. [employer] does not assume any responsibility for any aspect of healthcare administered with the aid of information [employer] provides. The information contained herein is not intended to cover all possible uses, directions, precautions, warnings, drug interactions, allergic reactions, or adverse effects. If you have questions about the drugs you are taking, check with your doctor, nurse or pharmacist. Copyright 2308-9907 [employer]. Version: 18.01. Revision Date: 07/28/2020. Education Materials [...] need to report the following to your section leader: Any draining or oozing from the site [...] Document Reviewed: 04/17/2014 ExitCare Patient Information 2015 [employer]. This information is not intended to replace advice given to you by your health care provider. Make sure you discuss any questions you have with your health care provider. Additional Information VACCINATE! IT SAVES LIVES! Members of the community who have not yet received the COVID-19 vaccine and would like to receive it can visit one of [facility] vaccine clinics. There are many vaccine clinic locations within the [facility]. For locations and available times, please visit [email or web address].coronavirus.dc io.gov/. It is important to note that some COVID mobile vaccine clinics are held outdoors and may be canceled in rainy or stormy conditions. To learn more about pediatric vaccinations (ages 5-11), we invite you to visit the [facility] webpage. [email or web address] To learn more about the COVID-19 vaccine, we invite you to visit the CDC website for a list of frequently asked questions.https://www.cdc.gov/cor onavirus/2019-ncov/vaccines/faq.h tml [facility] Patient Portal Access Instructions: Stay connected with your healthcare team and access your personal medical information anytime with the [facility] Patient Portal. Please follow the directions below to create your [facility] account: 1.Access the email account you provided upon registration to the hospital/physician office.2.Look for an invitation email from [facility].3.Open the email and access the invitation link: Accept Invitation to [facility].4.Fill in the required trejo to create your account. To access your account, visit Workable/5 CUPS and some sugareduardo. Click the blue button labeled Access Patient [...] you will allow to register on the [facility] Patient Portal for access to your information. You can also access the [facility] Patient Portal on the [facility] catalino. Simply click on Patient Portal and then log into your account. If you would like to receive a full copy of your medical records, please contact the [facility] Medical Records Department by calling [phone], Sunday through Sunday between 8 a.m. and [...] Call your local pharmacy or go to [email or web address] to find one close to you.3.Make use of household items: Use cat litter or old coffee grounds to dispose medications if other options are not available. Mix your drugs with these household products, seal them in an airtight container and throw it into the garbage. Call [facility]: [phone] to be sure your drugs can be [...] aware that I should contact my doctor. 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 Page from [facility] orth[facility]ics who did his back surgery on [...] MARIN PEREZ MD on 07/06/2023 12:55 PM [facility] 07-06-2023 Note SINUS RHYTHM REPOL ABNRM SUGGESTS ISCHEMIA, ANTEROLATERAL Electronic Signature: SHANE GROVE MD 07/07/2023 19:08:06 [facility] 07-06-2023 Progress note Date of Service 07/06/2023 [...] Syncope likely vasovagal Elevated troponin Type II MS Mild to moderate aortic stenosis- valve area [...] Spoke to patient's surgeon Dr. Page from [facility] who did his back surgery on [...] MARIN PEREZ MD on 07/06/2023 12:55 PM [facility] 07-06-2023 Note Date of Service 07/06/23 Reason [...] Back Lower, Midline - Skin Abnormality Color: [place], Yellow, Other: distal end minimal slough noted [...] by LOUIS Reyes on 07/06/2023 08:23 AM [facility] 07-05-2023 Note SINUS RHYTHM REPOL ABNRM SUGGESTS ISCHEMIA, ANTEROLATERAL Electronic Signature: SHANE GROVE MD 07/06/2023 18:35:36 [facility] 07-05-2023 Progress note Date of Service 07/05/2023 [...] Syncope likely vasovagal Elevated troponin Type II MS Mild to moderate aortic stenosis- valve area [...] Spoke to patient's surgeon Dr. Page from [facility] who did his back surgery on [...] PM Digitally Signed by ALISSA BRITT MD [facility] 07-04-2023 Note Date of Service Date: July [...] CHAIM SHEPHERD MD on 07/04/2023 01:05 PM [facility] 07-04-2023 Note ATRIAL FIBRILLATION VENTRICULAR PREMATURE COMPLEX REPOL ABNRM SUGGESTS ISCHEMIA, DIFFUSE LEADS Electronic Signature: SHANE GROVE MD 07/06/2023 18:35:28 [facility] 07-04-2023 Progress note Date of Service 07/04/2023 [...] Syncope likely vasovagal Elevated troponin Type II MS Mild to moderate aortic stenosis- valve area [...] Spoke to patient's surgeon Dr. Page from [facility] who did his back surgery on [...] PM Digitally Signed by ALISSA BRITT MD [facility] 07-04-2023 Note Date of Service Date: July [...] CHAIM SHEPHERD MD on 07/04/2023 01:05 PM [facility] 07-04-2023 Note ORIGINAL EXAMINATION: CARDIAC SPECT07/04/2023 9:43 [...] 07/04/2023 1:31:23 PM Ordering Provider: CHARLINE ROGERS [facility] 07-03-2023 History and physical note Date of Service 07/02/2023 Chief Complaint pt was at a post op apt for back surg and had a near syncopal episode. BG of 245 History of Present Illness 77-year-old male with history of type 2 diabetes, peripheral vascular disease, hypertension presenting for assessment of syncope.Patient had recent back surgery and is currently in a long term. While at follow-up appointment with surgeon today [...] Syncope likely vasovagal Elevated troponin Type II MS Mild to moderate aortic stenosis- valve area [...] YUSUF ONEAL MD on 07/03/2023 07:14 AM [facility] 07-03-2023 Note SINUS RHYTHM ABNORMAL T, CONSIDER ISCHEMIA, LATERAL LEADS Electronic Signature: TOSHA MOORE MD 07/03/2023 09:14:14 [facility] 07-02-2023 History and physical note Date of Service 07/02/2023 Chief Complaint pt was at a post op apt for back surg and had a near syncopal episode. BG of 245 History of Present Illness 77-year-old male with history of type 2 diabetes, peripheral vascular disease, hypertension presenting for assessment of syncope.Patient had recent back surgery and is currently in a long term. While at follow-up appointment with surgeon today [...] Syncope likely vasovagal Elevated troponin Type II MS Mild to moderate aortic stenosis- valve area [...] YUSUF ONEAL MD on 07/03/2023 07:14 AM [facility] 07-02-2023 Note ORIGINAL EXAMINATION: CTA OF THE [...] 07/02/2023 6:49:49 PM Ordering Provider: XIANG MOORE [facility] 07-02-2023 Evaluation + Plan note Extrac simon from: Title:History and Physical Author:CHAYA ONEAL MD Date:07/02/23 Syncope likely vasovagal Elevated troponin Type II MS Mild to moderate aortic stenosis- valve area [...] had echocardiogram few weeks ago with his section leader. Will get the records. He does have multiple risk factors. Given his elevated troponin, we will get a stress test to rule out any ischemia. Further recommendation after reviewing the results of the echocardiogram and the stress test. Future Scheduled Tests Radiology* MRI Spine Lumbar w/ + w/o Contrast 03/29/23 [facility] 03-04-2024 Note ORIGINAL EXAMINATION: ONE XRAY VIEW [...] Date: 07/02/2023 12:58:43 PM Ordering Provider: XIANG [facility]03-04-2024 NoteSINUS RHYTHM ABNORMAL R-WAVE PROGRESSION, EARLY TRANSITION ABNRM T, CONSIDER ISCHEMIA, ANTEROLATERAL LDS Electronic Signature: XIANG MOORE MD 07/02/2023 12:42:05[facility] 02-24-2024 NoteACH SURGICAL PROGRESSIVE CARE UNIT PCU [address] [facility] [address] Dept: [phone] Adult Spine Service Patient Name: Azar Triplett Date of : 1945 Date: 07/10/23 Discharge Summary Admit date: 06/19/2023 Discharge date and time: 06/23/2023 6:06 PM Admitting Physician: Guerda Alvarez MD Admission Diagnoses: Lumbar Spondylolisthesis, Stenosis Discharge Diagnoses: same Operative Procedures: Anterior Lumbar Interbody Fusion L4-5-S1, LT Peek Cage, Bone Morphogenic Protein Posterior Fusion L4-5-S1, Decompression V7-8-3-4-5-S1, Solera Pedicle Instrumentation, Local Bone Indication for [...] for discharge on above listed date. Disposition: Prison Facility Discharge Medications: Medication List START taking [...] Page Signed: TOSIN AGUILA MD 07/10/2023 12:[address] [facility]02-24-2024 NoteOrthopedic Surgery Progress Note Currently patient [...] MD Orthopedic Surgery PGY-2 06/23/2023 at 3:41 [facility]02-24-2024 History of Present illness Narrative* Deb Salas RN - 06/23/2023 5:00 PM EST Brace applied to patient and belongings gathered. * Deb Salas RN - 06/23/2023 4:58 PM EST Attempted to call report to [facility]. * Raine Hannon MD - 06/23/2023 3:40 [...] Admit Date: 06/19/2023 PCP: Seferino Hernandez Room#: C-0626/[id number] A Brief Hospital course: 77-year-old male past [...] Date Abnormal EKG Back pain recent steroid [id number] Cardiac murmur echo 06-14-23 EF 40-45%, moderate [...] Mueller DO Division of Hospitalist Medicine [facility] * Reagan Merchant MD - 06/23/2023 10:23 AM EST [facility] SURGICAL PROGRESSIVE CARE UNIT PCU [address] [address] Dept: [phone] Loc: [phone] Orthopedic Spine Progress Note Name: Azar Triplett [...] original note were not included. PHYSICAL THERAPY [facility] Treatment Note Name/MRN: Azar Triplett ([id number]) Date of : 1945 Age: 77 y.o. [...] belt, no alarms engaged upon entry, and polymerization helper present Restraints: No Education Education Given To: [...] was completed by a student physical therapist surgical supply assistant under the supervision of the cosigning therapist. Joan Mayorga SHADE BANDER * Ira Varela - 06/22/2023 11:22 AM EST Nutrition rescreen completed. Chart reviewed. Patient to be monitored and followed by the diet inventory technician. DIMITRI Ernandez * RADHA Donaldson - 06/22/2023 11:07 AM EST Images from the original note were not included. OCCUPATIONAL THERAPY [facility] Treatment Note Name/MRN: Azar Triplett ([id number]) Date of : 1945 Age: 77 y.o. Room/Bed: H-6112/-6112 A Discharge Recommendation: Prison Facility, Pending approval of OTR/L of change [...] Dressing: Min Assist (see below) Adaptive Equipment: Stable Manager to doff gripper sock with MIN A [...] Admit Date: 06/19/2023 PCP: Seferino Hernandez Room#: H-9812/H-7652 A Brief Hospital course: 77-year-old male past [...] Date Abnormal EKG Back pain recent steroid [id number] Cardiac murmur echo 06-14-23 EF 40-45%, moderate [...] Rhett Toledo DO Division of Hospitalist Medicine [facility] * Rubens Fulton MD - 06/22/2023 6:02 AM EST Images from the original note were not included. Ortho Progress Note Patient: Azar Triplett Date of : 1945 Acct: [id number] PCP: Seferino Hernandez Date of Admission: 06/19/2023 [...] original note were not included. PHYSICAL THERAPY [facility] Treatment Note Name/MRN: Azar Triplett ([id number]) Date of : 1945 Age: 77 y.o. Room[facility]Bed: [facility] A Discharge Recommendation: 24 hour supervision or [...] belt, no alarms engaged upon entry, and polymerization helper present Restraints: No Education Education Given To: [...] was completed by a student physical therapist surgical supply assistant under the supervision of the cosigning therapist. Joan Mayorga SHADE BANDER * Lynettemina Cronin - 06/21/2023 12:30 PM EST Images from the original note were not included. OCCUPATIONAL THERAPY [facility] Initial Evaluation Name/MRN: Azar Triplett ([id number]) Evaluation Date: 06/21/2023 Date of : 1945 Admission Date: 06/19/2023 6:04 AM Age: 77 y.o. Room[facility]Bed: [facility] A Discharge Recommendation: Home with Home health [...] Date Abnormal EKG Back pain recent steroid [id number] Cardiac murmur echo 06-14-23 EF 40-45%, moderate [...] Responsibilities: Independent Receives Help From: None Active Conveyor Belt Installer: No Prior Level of Function ADL Assistance: [...] of Care supervision is transferred to a [facility] Occupational Therapist. Goals and/or treatment plan was established in collaboration with patient/family/other representatives. * Rhett Toledo DO - 06/21/2023 8:19 AM EST Images from the original note were not included. Hospitalist Progress Note 06/21/2023 Subjective: Admit Date: 06/19/2023 PCP: Seferino Hernandez Room#: H-1615/H-2492 A Brief Hospital course: 77-year-old male past [...] Date Abnormal EKG Back pain recent steroid [id number] Cardiac murmur echo 06-14-23 EF 40-45%, moderate [...] Rhett Toledo DO Division of Hospitalist Medicine [facility] * Rubens Fulton MD - 06/21/2023 7:16 AM EST Images from the original note were not included. Ortho Progress Note Patient: Azar Triplett Date of : 1945 Acct: [id number] PCP: Seferino Hernandez Date of Admission: 06/19/2023 [...] Admit Date: 06/19/2023 PCP: Seferino Hernandez Room#: H-2475/H-6512 A Brief Hospital course: 77-year-old male past [...] Date Abnormal EKG Back pain recent steroid [id number] Cardiac murmur echo 06-14-23 EF 40-45%, moderate [...] Rhett Toledo DO Division of Hospitalist Medicine [facility] * Estelita Augustine, PT - 06/20/2023 11:47 AM EST Images from the original note were not included. PHYSICAL THERAPY [facility] Initial Evaluation Name/MRN: Azar Triplett ([id number]) Evaluation Date: 06/20/2023 Date of : 1945 Admission Date: 06/19/2023 6:04 AM Age: 77 y.o. Room/Bed: [facility] A Discharge Recommendation: 24 hour supervision or [...] Date Abnormal EKG Back pain recent steroid [id number] Cardiac murmur echo 06-14-23 EF 40-45%, moderate [...] Responsibilities: Independent Receives Help From: None Active Conveyor Belt Installer: No (transports with horse and buggey) Son [...] of Care supervision is transferred to a [facility] Physical Therapist. Goals and/or [...] Sheng Mazariegos MD General Surgery PGY-1 Pager [phone] Associated attestation - Karol Pradhan MD - 06/21/2023 2:36 PM EST I have evaluated the patient and agree with the resident assessment and plan except for additional comments made in this note. * Tosin Aguila MD - 06/20/2023 6:23 AM EST Images from the original note were not included. Ortho Progress Note Patient: Azar Triplett Date of : 1945 Acct: [id number] PCP: Seferino Hernandez Date of Admission: 06/19/2023 [...] TOSIN AGUILA MD 06/20/2023 documented in this [facility]02-24-2024 Miscellaneous Notes* Care Coordination - Unknown Case Management - 06/23/2023 3:20 PM EST Patient Choice Patient Name: AZAR TRIPLETT Date of : 1945 All Providers Sent Referral Name: [facility] Address: [address] [place] [address] * Care Coordination - Yovana Mcmillan RN - 06/23/2023 1:01 PM EST TCC tasked to follow over weekend. Patient's drain remains in place. No DC orders noted yet. Patient to dc to [facility]. TCC to follow. Jenn reached out to this TCC to ask facility if pt can dc to them with accordion drain in place. Awaiting response. Facility able to medically manage drain. Son to transport. Patient to dc to [facility] today. RN,, son, community living specialist and facility all updated. FELIBERTO completed. * Care Coordination - Radha Martinez RN - 06/22/2023 2:36 PM EST Per ortho Dr. Fulton patient drain output is too high and that makes patient not ready for discharge. TCC to assist and follow as needed. * Care Coordination - Radha Martinez RN - 06/22/2023 2:06 PM EST Patient and son requesting referral to [facility]. TCC called [facility]. ELECTRONIC TECHNICIAN tasked to make referral to [facility]. Specifics provided per request to [facility]. Dr. Toledo secure messaged and patient [...] AM EST Referral placed to SNF- [facility] via [facility] per TCC request. Await review and response [...] Limits Permission given to speak with patient entry level sales representative/caregiver as indicated: Yes Confirmation of Payer with patient/family: Yes Payer Name: [employer] : No Confirmation of Primary Care Physician: [...] Living Prescription Coverage: Yes Pharmacy Used: [facility] Medication Management: Independent Transportation/Shopping: (van, son will [...] RX coverage, active with PCP. Patient is Shinto, son is in the room. Patient lives alone. Patient is going to stay with spouse after surgery. Son will arrange van transport home. Patient is agreeable to therapy at home. TCC to assist and follow as needed. Radha Martinez RN * Home Care - Yajaira Carrillo RN - 06/20/2023 2:25 PM EST Hvac Commercial Salesperson following case for Discharge Needs. * Care [...] Bone Morphogenic Protein Posterior Fusion L4-5-S1, Decompression C4-8-8-4-5-S1, Solera Pedicle Instrumentation, Local Bone ANESTHESIA: General [...] to 10 mm. Double barrel LT cage topology teacher was then tamped into position. We reamed to 32 mm x 2. We inserted a size 14 x 23 threaded LT peek cages x 2. IntraOpfluoroscopy confirmed good position and alignment. Retractors and distractors then reapplied at L5-S1. Once again disc was prepared discectomy performed with a pituitary. We distracted to a height of10 mm. A double barrel size 14 LT peek cage topology teacher used. We reamed to 32 mm x [...] 06/19/2023 7:30 AM EST Date: 06/19/2023 Location: [facility] OR Name: Azar Triplett, : 1945, Diagnosis Pre-op Diagnosis * Spondylolisthesis, lumbosacral region [M43.17] Post-op Diagnosis * Spondylolisthesis, lumbosacral region [M43.17] Procedures ANTERIOR LUMBAR INTERBODY FUSION LUMBAR 4/5-SACRAL 1, INTERBODY DEVICE BONE MORPHOGENETIC PROTEIN, POSTERIOR FUSION LUMBAR 4/5-SACRAL 1, DECOMPRESSION LUMBAR 4-2-7-4-5-SACRAL 1, PEDICLE INSTRUMENTATION AND LOCAL BONE 25388 - CA ARTHRD ANT INTERBODY MIN DSC LUMBAR ANTERIOR MICRODISCECTOMY AND FUSION EACH ADDITIONAL LEVEL 07334 - CA ARTHRD ANT NTRBD MIN DSC EA ADDL INTERSPACE INSERTION OF INTERBODY BIOMECHANICAL DEVICE 46327 - CA INSJ BIOMCHN DEV INTERVERTEBRAL DSC SPC W/ARTHRD POSTERIOR LUMBAR FUSION 09000 - CA ARTHRODESIS POSTERIOR/PSTLAT TQ 1NTRSPC LUMBAR POSTERIOR OR POSTEROLATERAL FUSION EACH ADDITIONAL LEVEL 32956 - CA ARTHRODESIS PST/PSTLAT TQ 1NTRSPC EA ADDL NTRSPC POSTERIOR LUMBAR LAMINECTOMY FACETECTOMY FORAMINOTOMY AND DECOMPRESSION 36163 - CA AGUILLON FACETECTOMY & FORAMOTOMY 1 VRT SGM LUMBAR POSTERIOR CERVICAL/THORACIC/LUMBAR LAMINECTOMY FACETECTOMY FORAMINOTOMY AND DECOMPRESSION EACH ADDITIONAL 73617 - CA AGUILLON FACETECTOMY&FORAMOT 1 VRT SGM EA ADDL SGM POSTERIOR SPINAL INSTRUMENTATION 3 TO 6 LEVELS 82752 - CA POSTERIOR SEGMENTAL INSTRUMENTATION 3-6 VRT SEG Surgeons * Guerda Page V - Primary * Karol Pradhan - Assisting Procedure Summary Anesthesia: General ASA: III Estimated Blood Loss: 1200 mL Drains: Closed/Suction Drain Inferior Back Accordion 10 Fr. (Active) Urethral Catheter Straight-tip 16 Fr. (Active) Implants Type Name Action Serial No. Graft KIT INFUSE BONE GRAFT XL 8.0CC - [id number] Used, Not Implanted Spinal Hardware CAGE SPINE LUMBAR 14X17.5X23MM - [id number] Implanted Spinal Hardware SCREW SPINAL 6.3TEB78LY - [id number] Implanted Spinal Hardware SCREW SET TI SPINAL BREAK OFF - [id number] Implanted Spinal Hardware JODY SPNL CROMALLOY BENT 5.5X55 - [id number] Wasted Spinal Hardware JODY SPNL CROMALLOY BENT 5.5X60 - [id number] Implanted Staff: Certified Midwife: Jewel Shaw RN; Conor Pinto RN Scrub [...] q4 hrs -Ortho primary documented in this [facility]02-24-2024 Note* Care Coordination - Unknown Case Management - 06/23/2023 3:20 PM EST Patient Choice Patient Name: AZAR TRIPLETT Date of : 1945 All Providers Sent Referral Name: [facility] Address: [address] [place] [address] [id number]* Care Coordination - Unknown Case Management - 06/23/2023 3:20 PM EST Patient Choice Patient Name: AZAR TRIPLETT Date of : 1945 All Providers Sent Referral Name: [facility] Address: [address] [place] [address] [id number] NoteHospitalist Progress Note 06/23/2023 Subjective: Admit Date: 06/19/2023 PCP: Seferino Hernandez Room#: H-2112/H-0789 A Brief Hospital course: 77-year-old male past [...] Date Abnormal EKG Back pain recent steroid [id number] Cardiac murmur echo 06-14-23 EF 40-45%, moderate [...] Iain Mueller DO Division of Hospitalist Medicine [facility]02-24-2024 Note* Care Coordination - Yovana Mcmillan RN - 06/23/2023 1:01 PM EST TCC tasked to follow over weekend. Patient's drain remains in place. No DC orders noted yet. Patient to dc to [facility]. TCC to follow. Jenn reached out to this TCC to ask facility if pt can dc to them with accordion drain in place. Awaiting response. Facility able to medically manage drain. Son to transport. Patient to dc to [facility] today. RN,MD, son, community living specialist and facility all updated. FELIBERTO completed. [id number]* Care Coordination - Yovana Mcmillan RN - 06/23/2023 1:01 PM EST TCC tasked to follow over weekend. Patient's drain remains in place. No DC orders noted yet. Patient to dc to [facility]. TCC to follow. Jenn reached out to this TCC to ask facility if pt can dc to them with accordion drain in place. Awaiting response. Facility able to medically manage drain. Son to transport. Patient to dc to [facility] today. RN,MD, son, community living specialist and facility all updated. FELIBERTO completed. [facility]02-24-2024 [facility] SURGICAL PROGRESSIVE CARE UNIT PCU [address] [place] [address] Dept: [phone] Loc: [phone] Orthopedic Spine Progress Note Name: Azar Triplett [...] to be pulled Reagan Merchant M.D. [facility] NotePatient and son requesting referral to [facility]. TCC called [facility]. ELECTRONIC TECHNICIAN tasked to make referral to [facility]. Specifics provided per request to [facility] [place]. Dr. Toledo secure messaged and patient is medically stable for discharge. TCC secure messaged Ortho regarding medically stable for discharge. Per OT patient did not work on transfer to car, had worked on transfer to chair. If patient has assist should be able to transfer to car. Tasked weekend TCC to assist with discharge tomorrow. TCC to assist and follow as needed. [facility]02-23-2024 Note* Care Coordination - Radha Martinez RN - 06/22/2023 2:36 PM EST Per ortho Dr. Fulton patient drain output is too high and that makes patient not ready for discharge. TCC to assist and follow as needed. [facility]02-23-2024 Note* Care Coordination - Radha Martinez RN - 06/22/2023 2:36 PM EST Per ortho Dr. Fulton patient drain output is too high and that makes patient not ready for discharge. TCC to assist and follow as needed. [facility]02-23-2024 Note* Care Coordination - Radha Martinez RN - 06/22/2023 2:06 PM EST Patient and son requesting referral to [facility]. TCC called [facility]. ELECTRONIC TECHNICIAN tasked to make referral to [facility]. Specifics provided per request to [facility]. Dr. Toledo secure messaged and patient is medically stable for discharge. TCC secure messaged Ortho regarding medically stable for discharge. Per OT patient did not work on transfer to car, had worked on transfer to chair. If patient has assist should be able to transfer to car. Tasked weekend TCC to assist with discharge tomorrow. TCC to assist and follow as needed. [facility]02-23-2024 Note* Care Coordination - Radha Martinez RN - 06/22/2023 2:06 PM EST Patient and son requesting referral to [facility]. TCC called [facility]. ELECTRONIC TECHNICIAN tasked to make referral to [facility]. Specifics provided per request to [facility]. Dr. Toledo secure messaged and patient is medically stable for discharge. TCC secure messaged Ortho regarding medically stable for discharge. Per OT patient did not work on transfer to car, had worked on transfer to chair. If patient has assist should be able to transfer to car. Tasked weekend TCC to assist with discharge tomorrow. TCC to assist and follow as needed. [facility]02-23-2024 NoteReferral placed to SNF- [facility] via Careport per TCC request. Await review and response regarding ability to accept. TCC notified. [facility]02-23-2024 Note* Home Care - Yajaira Carrillo RN - 06/22/2023 12:10 PM EST Spoke with pt and family member, Perry, at bedside. Pt and family decided they would prefer SNF placement for short time prior to dc home. Perry stated this is already approved through their insurance fund. Denied DME needs. TCC aware and working on referrals. [id number]* Home Care - Yajaira Carrillo RN - 06/22/2023 12:10 PM EST Spoke with pt and family member, Perry, at bedside. Pt and family decided they would prefer SNF placement for short time prior to dc home. Perry stated this is already approved through their insurance fund. Denied DME needs. TCC aware and working on referrals. [facility]02-23-2024 NoteCare Management Progress Note Patient remains on [...] AM Length of Stay (Days): 3 GMLOS: [address] [place], [place] 0705202-23-2024 Note* Care Coordination - Dale Varela - 06/22/2023 11:37 AM EST Referral placed to [facility] via Careport per TCC request. Await review and response regarding ability to accept. TCC notified. [facility]02-23-2024 Note* Care Coordination - Dale Varela - 06/22/2023 11:37 AM EST [facility]. Await review and response regarding ability to accept. TCC notified. [facility] [id number] NoteHospitalist Progress Note 06/22/2023 Subjective: Admit Date: 06/19/2023 PCP: Seferino Hernandez Room#: -[id number] A Brief Hospital course: 77-year-old male past [...] Date Abnormal EKG Back pain recent steroid [id number] Cardiac murmur echo 06-14-23 EF 40-45%, moderate [...] stable on home medications (more content not included)...[facility]-23-[facility] Note* Care Coordination - Radha Martinez RN [...] Length of Stay (Days): 3 GMLOS: 3.7 [facility]02-23-2024 Note* Care Coordination - Radha Martinez [...] Length of Stay (Days): 3 GMLOS: 3.7 [facility]02-23-2024 Plan of care note* Care Plan - [...] status, cognitive ability or social support system [facility]gpkva61-84-1444 NoteOrtho Progress Note Patient: Azar Triplett Date of : 1945 Acct: [id number] PCP: Seferino Hernandez Date of Admission: 06/19/2023 [...] Fulton MD PGY2 Orthopaedic Surgery 06/22/2023 6:[address] [facility]02-22-2024 Plan of care note* Care Plan - Leisa Goldsmith RN - 06/21/2023 10:40 PM EST Problem: Pain - Adult Goal: Verbalizes/displays adequate comfort level or baseline comfort level Outcome: Progressing Problem: Safety - Adult Goal: Free from fall injury Outcome: Progressing Problem: Discharge Planning Goal: Discharge to home or other facility with appropriate resources Outcome: Progressing [facility] [id number] NoteOCCUPATIONAL THERAPY [facility] Initial Evaluation Name/MRN: Azar Triplett ([id number]) Evaluation Date: 06/21/2023 Date of : 1945 Admission Date: 06/19/2023 6:04 AM Age: 77 y.o. Room[facility]Bed: [facility] A Discharge Recommendation: Home with Home health [...] Date Abnormal EKG Back pain recent steroid [id number] Cardiac murmur echo 06-14-23 EF 40-45%, moderate [...] Responsibilities: Independent Receives Help From: None Active Conveyor Belt Installer: No Prior Level of Function ADL Assistance: [...] Patient will maintain dyn (more content not included)...[facility] 06-21-2023 NoteHospitalist Progress Note 06/21/2023 Subjective: Admit [...] Date Abnormal EKG Back pain recent steroid [id number] Cardiac murmur echo 06-14-23 EF 40-45%, moderate [...] Rhett Toledo DO Division of Hospitalist Medicine [facility]02-22-2024 NoteOrtho Progress Note Patient: Azar Triplett Date of : 1945 Acct: [id number] PCP: Seferino Hernandez Date of Admission: 06/19/2023 [...] Fulton MD PGY2 Orthopaedic Surgery 06/21/2023 7:[address] [facility]02-22-2024 Note* Care Coordination - Radha Martinez RN - 06/21/2023 8:27 AM EST Patient remains on H6 s/p anterior lumbar fusion 06/19/2023. Reg 5 carb choice diet noted. Per RN accordian drain with increase output. PT/OT noted. Discharge plan is to spouse home with therapy at home. TCC to assist and follow as needed. [facility]02-22-2024 Note* Care Coordination - Radha Martinez RN - 06/21/2023 8:27 AM EST Patient remains on H6 s/p anterior lumbar fusion 06/19/2023. Reg 5 carb choice diet noted. Per RN accordian drain with increase output. PT/OT noted. Discharge plan is to spouse home with therapy at home. TCC to assist and follow as needed. [facility]02-22-2024 Plan of care note* Care Plan - Carrie Hagen RN - 06/21/2023 6:45 AM EST Problem: Pain - Adult Goal: Verbalizes/displays adequate comfort level or baseline comfort level Outcome: Progressing Problem: Safety - Adult Goal: Free from fall injury Outcome: Progressing Problem: Discharge Planning Goal: Discharge to home or other facility with appropriate resources Outcome: Progressing [place] [address]-21-2024 NoteHospitalist Progress Note 06/20/2023 Subjective: Admit Date: 06/19/2023 PCP: Seferino Hernandez Room#: [id number] A Brief Hospital course: 77-year-old male past [...] Date Abnormal EKG Back pain recent steroid [id number] Cardiac murmur echo 06-14-23 EF 40-45%, moderate [...] and limit nighttime disturban (more content not included)...[facility]02-21-2024 Note* Care Coordination - Radha Martinez RN - 06/20/2023 2:29 PM EST Care Managment Initial Assessment Date: 06/20/2023 Patient Name: Azar Triplett : 1945 Patient Information Source of Information: Patient Cognition/Language: WFL - Within Functional Limits Permission given to speak with patient entry level sales representative/caregiver as indicated: Yes Confirmation of Payer with patient/family: Yes Payer Name: [facility] [place]: No Confirmation of Primary Care Physician: Confirmed [...] Living Prescription Coverage: Yes Pharmacy Used: [facility] Medication Management: Independent Transportation/Shopping: (van, son will [...] RX coverage, active with PCP. Patient is Shinto, son is in the room. Patient lives alone. Patient is going to stay with spouse after surgery. Son will arrange van transport home. Patient is agreeable to therapy at home. TCC to assist and follow as needed. Radha Martinez RN [facility] HospitalVdossr74-90-0616 Note* Care Coordination - Radha Martinez RN - 06/20/2023 2:29 PM EST Care Managment Initial Assessment Date: 06/20/2023 Patient Name: Azar Triplett : 1945 Patient Information Source of Information: Patient Cognition/Language: WFL - Within Functional Limits Permission given to speak with patient entry level sales representative/caregiver as indicated: Yes Confirmation of Payer with patient/family: Yes Payer Name: [facility] [place]: No Confirmation of Primary Care Physician: Confirmed [...] Living Prescription Coverage: Yes Pharmacy Used: [facility] Medication Management: Independent Transportation/Shopping: (van, son will [...] RX coverage, active with PCP. Patient is Shinto, son is in the room. Patient lives alone. Patient is going to stay with spouse after surgery. Son will arrange van transport home. Patient is agreeable to therapy at home. TCC to assist and follow as needed. Radha Martinez RN [facility] HospitalWjwsoa32-79-1260 Note* Home Care - Yajaira Carrillo RN - 06/20/2023 2:25 PM EST Hvac Commercial Salesperson following case for Discharge Needs. [facility] [id number] Note* Home Care - Yajaira Carrillo RN - 06/20/2023 2:25 PM EST Hvac Commercial Salesperson following case for Discharge Needs. [facility] [id number] NotePHYSICAL THERAPY [facility] Initial Evaluation Name/MRN: Azar Triplett ([id number]) Evaluation Date: 06/20/2023 Date of : 1945 Admission Date: 06/19/2023 6:04 AM Age: 77 y.o. Room/Bed: [facility] A Discharge Recommendation: 24 hour supervision or [...] Date Abnormal EKG Back pain recent steroid [id number] Cardiac murmur echo 06-14-23 EF 40-45%, moderate [...] Responsibilities: Independent Receives Help From: None Active Conveyor Belt Installer: No (transports with horse and buggey) Son [...] Training, Gait Training, Saf (more content not included)...[facility]02-21-2024 NoteOrtho Progress Note Patient: Azar Triplett Date of : 1945 Acct: [id number] PCP: Seferino Hernandez Date of Admission: 06/19/2023 [...] q4 hrs -Ortho primary TOSIN AGUILA MD 06/20/2023[facility]02-21-2024 Plan of care note* Care Plan - Carrie Hagen RN - 06/20/2023 7:01 AM EST Problem: Pain - Adult Goal: Verbalizes/displays adequate comfort level or baseline comfort level Outcome: Progressing Problem: Safety - Adult Goal: Free from fall injury Outcome: Progressing Problem: Discharge Planning Goal: Discharge to home or other facility with appropriate resources Outcome: Progressing [facility]02-20-2024 Consult note* Tara Dominguez MD - 06/19/2023 10:18 PM ESTAssociated Order(s): IP CONSULT TO INTERNAL MEDICINE Images from the original note were not included. Hospital Medicine Consult Patient - Azar Triplett, Age - 77 y.o. - 1945 Room Number - [id number]/[id number] A Consulting - Guerda Alvarez MD Primary [facility] Phys[id number] Date of Admission - 06/19/2023 6:04 AM [...] Date Abnormal EKG Back pain recent steroid [id number] Cardiac murmur echo 06-14-23 EF 40-45%, moderate [...] Tara Dominguez MD Division of Hospitalist Medicine [facility] [place] Work Phone: 1(596) 262-338202-20-2024 Consult note* Tara Dominguez MD - 06/19/2023 [...] Date Abnormal EKG Back pain recent steroid [id number] Cardiac murmur echo 06-14-23 EF 40-45%, moderate [...] MD Division of Hospitalist Medicine Acute care [facility] documented in this [facility]02-20-2024 Note* Perioperative Nursing Note - Francesca Carolina RN - 06/19/2023 4:13 PM EST Pt son, Perry, updated at this time. Pt family leaving for dinner- asked to be called once pt has room assigned. [facility]02-20-2024 Note* Perioperative Nursing Note - Francesca Carolina RN - 06/19/2023 4:13 PM EST Pt son, Perry, updated at this time. Pt family leaving for dinner- asked to be called once pt has room assigned. [facility]02-20-2024 NotePatient: Azar Triplett Procedure Summary Date: 06/19/23 Room / Location: [address] Operating Room Anesthesia Start: 729 Anesthesia Stop: 1409 Procedures: ANTERIOR LUMBAR INTERBODY FUSION LUMBAR 4/5-SACRAL 1, INTERBODY DEVICE BONE MORPHOGENETIC PROTEIN, POSTERIOR FUSION LUMBAR 4/5-SACRAL 1, DECOMPRESSION LUMBAR 0-4-4-4-5-SACRAL 1, PEDICLE INSTRUMENTATION AND LOCAL BONE (Back) [...] discharged once all PACU criteria has been met.[facility] [id number] NotePatient: Azar Triplett Procedure Summary Date: 06/19/23 Room / Location: [address] Operating Room Anesthesia Start: 0730 Anesthesia Stop: 1410 Procedures: ANTERIOR LUMBAR INTERBODY FUSION LUMBAR 4/5-SACRAL 1, INTERBODY DEVICE BONE MORPHOGENETIC PROTEIN, POSTERIOR FUSION LUMBAR 4/5-SACRAL 1, DECOMPRESSION LUMBAR 7-0-0-4-5-SACRAL 1, PEDICLE INSTRUMENTATION AND LOCAL BONE (Back) [...] Allowed opportunity for questions and acknowledgement of understanding.[facility]02-20-2024 Note* Perioperative Nursing Note - Perry Medina RN - 06/19/2023 3:47 PM EST Patient report is called to H6 LOUIS Gilman and denies any further questions at this time. Patient is resting comfortably at this time and asleep but arouses to voice. [facility] [id number] Note* Perioperative Nursing Note - Perry Medina RN - 06/19/2023 3:47 PM EST Patient report is called to H6 LOUIS Gilman and denies any further questions at this time. Patient is resting comfortably at this time and asleep but arouses to voice. [facility] [id number] Hospital Discharge instructions* Discharge Instructions* Raine Hannon [...] becomes disconnected please call the office at [phone] for instruction. If unable to reach the [...] level decreases, you may begin to take [id number]-[id number]-nljdvnv Extra Strength Tylenol. The maximum Tylenol you are able to take is 3000 mg a day total. PLEASE AVOID ANTI-INFLAMMATORY MEDICATIONS (NSAIDS; ie: Mobic, ibuprofen, aleve, motrin, diclofenac) UNTIL YOUR DOCTOR OR PUBLIC RELATIONS ACCOUNT EXECUTIVE/PA ADVISE OTHERWISE (TYPICALLY 3 MONTHS AFTER SURGERY) You should try to wean from your pain medicine in 2-3 weeks. It is not recommended to drive or operate heavy machinery while taking narcotic pain medication. You will be provided with a prescription for pain medication when you are discharged from the hospital Moving forward, you are to contact the office at [phone] or via [employer], for additional refills You can receive up [...] additional questions/concerns, please contact the office at [phone] For life-threathening emergency, please call 911 * [...] Dressing Minimal assistance Toileting Independent Feeding Independent Varnish Thinner Minimal assistance Med Delivery yes Wound Care [...] @[email or web address]@ Discharging to Facility/ Agency Name: [facility] Address: Fax: Dialysis Facility (if applicable) Name: Address: Dialysis Schedule: Phone: Fax: Edger Machine Helper/Automotive Generator Repairer signature: ICIAN SECTION Prognosis: good Condition at Discharge: stable Rehab Potential (if transferring to Rehab): good Recommended Labs or Other Treatments After Discharge: PT Physician Certification: I certify the above information and transfer of Azar Triplett is necessary for the continuing treatment of the diagnosis listed and that he requires senior care facilityfor less than 30 days. Update Admission H&P: No change in H&P PHYSICIAN SIGNATURE: documented in this [facility]02-20-2024 NotePeripheral IV Date/Time: 06/19/2023 9:00 AM Placement Needle size: 16 G Laterality: right Location: arm Local anesthetic: none Site prep: alcohol Technique: anatomical landmarks Attempts: [address] [place], [place] [address]-20-2024 NotePeripheral IV Date/Time: 06/19/2023 8:00 AM Placement Needle size: 18 G Laterality: right Location: arm Local anesthetic: none Site prep: alcohol Technique: anatomical landmarks Attempts: [address] [place], [place] [address]47[address]-20-2024 NoteArterial Line: Date/Time: 06/19/2023 7:54 AM An [...] no complications. Staffing Performed: SRNA, anesthesiologist and ASSEMBLER ENGINE Anesthesiologist: Gerry Buchanan MD Resident/ASSEMBLER ENGINE: Errol Valadez, [place] [address]-20-2024 Note Airway Date/Time: 06/19/2023 7:58 AM Urgency: scheduled Airway not difficult General Information and Staff Patient location during procedure: Procedural Resident/ASSEMBLER ENGINE: Errol Valadez CRNA Performed: ASSEMBLER ENGINE and SRNA Indications and Patient Condition Indications [...] (cm): 24 Number of attempts at approach: [address] [place], [place] 1847[address]-20-2024 Note* Op Note - Karol Pradhan MD - 06/19/2023 7:30 AM EST OPERATIVE NOTE Azar Looyla Triplett 1945 DATE OF PROCEDURE: 06/19/2023 SURGEON: [...] end of the case. Karol Pradhan MD [employer] Phone: 1(673) 498-260402-20-2024 Note* Op Note - Guerda Alvarez MD - 06/19/2023 7:30 AM EST OPERATIVE NOTE Patient Name: Azar Triplett : 1945 DATE OF PROCEDURE: 06/19/2023 SURGEON: Guerda Page MD PREOPERATIVE DIAGNOSES: Spondylolisthesis, Stenosis POSTOPERATIVE DIAGNOSES: Same PROCEDURE: Anterior Lumbar Interbody Fusion L4-5-S1, LT Peek Cage, Bone Morphogenic Protein Posterior Fusion L4-5-S1, Decompression C0-8-1-4-5-S1, Solera Pedicle Instrumentation, Local Bone ANESTHESIA: General [...] to 10 mm. Double barrel LT cage topology teacher was then tamped into position. We reamed to 32 mm x 2. We inserted a size 14 x 23 threaded LT peek cages x 2. IntraOpfluoroscopy confirmed good position and alignment. Retractors and distractors then reapplied at L5-S1. Once again disc was prepared discectomy performed with a pituitary. We distracted to a height of10 mm. A double barrel size 14 LT peek cage topology teacher used. We reamed to 32 mm x [...] to the recovery room in stable condition. [facility] HospitalRiukgp69-77-5299 Note* Brief Op Note - Tosin Aguila MD - 06/19/2023 7:30 AM EST Date: 06/19/2023 Location: [facility] OR Name: Azar Triplett, : 1945, Diagnosis Pre-op Diagnosis * Spondylolisthesis, lumbosacral region [M43.17] Post-op Diagnosis * Spondylolisthesis, lumbosacral region [M43.17] Procedures ANTERIOR LUMBAR INTERBODY FUSION LUMBAR 4/5-SACRAL 1, INTERBODY DEVICE BONE MORPHOGENETIC PROTEIN, POSTERIOR FUSION LUMBAR 4/5-SACRAL 1, DECOMPRESSION LUMBAR 3-9-4-4-5-SACRAL 1, PEDICLE INSTRUMENTATION AND LOCAL BONE 54660 - CA ARTHRD ANT INTERBODY MIN DSC LUMBAR ANTERIOR MICRODISCECTOMY AND FUSION EACH ADDITIONAL LEVEL 52649 - CA ARTHRD ANT NTRBD MIN DSC EA ADDL INTERSPACE INSERTION OF INTERBODY BIOMECHANICAL DEVICE 05322 - CA INSJ BIOMCHN DEV INTERVERTEBRAL DSC SPC W/ARTHRD POSTERIOR LUMBAR FUSION 87875 - CA ARTHRODESIS POSTERIOR/PSTLAT TQ 1NTRSPC LUMBAR POSTERIOR OR POSTEROLATERAL FUSION EACH ADDITIONAL LEVEL 34586 - CA ARTHRODESIS PST/PSTLAT TQ 1NTRSPC EA ADDL NTRSPC POSTERIOR LUMBAR LAMINECTOMY FACETECTOMY FORAMINOTOMY AND DECOMPRESSION 46920 - CA AGUILLON FACETECTOMY & FORAMOTOMY 1 VRT SGM LUMBAR POSTERIOR CERVICAL/THORACIC/LUMBAR LAMINECTOMY FACETECTOMY FORAMINOTOMY AND DECOMPRESSION EACH ADDITIONAL 09438 - CA AGUILLON FACETECTOMY&FORAMOT 1 VRT SGM EA ADDL SGM POSTERIOR SPINAL INSTRUMENTATION 3 TO 6 LEVELS 09751 - CA POSTERIOR SEGMENTAL INSTRUMENTATION 3-6 VRT SEG Surgeons * Guerda Page V - Primary * Karol Pradhan - Assisting Procedure Summary Anesthesia: General ASA: III Estimated Blood Loss: 1200 mL Drains: Closed/Suction Drain Inferior Back Accordion 10 Fr. (Active) Urethral Catheter Straight-tip 16 Fr. (Active) Implants Type Name Action Serial No. Graft KIT INFUSE BONE GRAFT XL 8.0CC - [id number] Used, Not Implanted Spinal Hardware CAGE SPINE LUMBAR 14X17.5X23MM - [id number] Implanted Spinal Hardware SCREW SPINAL [id number] - [id number] Implanted Spinal Hardware SCREW SET TI SPINAL BREAK OFF - [id number] Implanted Spinal Hardware JODY SPNL CROMALLOY BENT 5.5X55 - [id number] Wasted Spinal Hardware JODY SPNL CROMALLOY BENT 5.5X60 - [id number] Implanted Staff: Certified Midwife: Jewel Shaw RN; Conor Pinto RN Scrub [...] precautions -NV checks q4 hrs -Ortho primary [facility] [id number] Note* Op Note - Karol Pradhan MD [...] end of the case. Karol Pradhan MD [employer] Phone: 1(974) 771-389202-20-2024 Note* Op Note - Guerda Alvarez MD - 06/19/2023 7:30 AM EST OPERATIVE NOTE Patient Name: Azar Triplett : 1945 DATE OF PROCEDURE: 06/19/2023 SURGEON: Guerda Page MD PREOPERATIVE DIAGNOSES: Spondylolisthesis, Stenosis POSTOPERATIVE DIAGNOSES: Same PROCEDURE: Anterior Lumbar Interbody Fusion L4-5-S1, LT Peek Cage, Bone Morphogenic Protein Posterior Fusion L4-5-S1, Decompression S0-1-7-4-5-S1, Solera Pedicle Instrumentation, Local Bone ANESTHESIA: General [...] to 10 mm. Double barrel LT cage topology teacher was then tamped into position. We reamed to 32 mm x 2. We inserted a size 14 x 23 threaded LT peek cages x 2. IntraOpfluoroscopy confirmed good position and alignment. Retractors and distractors then reapplied at L5-S1. Once again disc was prepared discectomy performed with a pituitary. We distracted to a height of10 mm. A double barrel size 14 LT peek cage topology teacher used. We reamed to 32 mm x [...] to the recovery room in stable condition. [facility]02-20-2024 Note* Brief Op Note - Tosin Aguila MD - 06/19/2023 7:30 AM EST Date: 06/19/2023 Location: [facility] OR Name: Azar Triplett, : 1945, Diagnosis Pre-op Diagnosis * Spondylolisthesis, lumbosacral region [M43.17] Post-op Diagnosis * Spondylolisthesis, lumbosacral region [M43.17] Procedures ANTERIOR LUMBAR INTERBODY FUSION LUMBAR 4/5-SACRAL 1, INTERBODY DEVICE BONE MORPHOGENETIC PROTEIN, POSTERIOR FUSION LUMBAR 4/5-SACRAL 1, DECOMPRESSION LUMBAR 6-2-6-4-5-SACRAL 1, PEDICLE INSTRUMENTATION AND LOCAL BONE 41007 - CA ARTHRD ANT INTERBODY MIN DSC LUMBAR ANTERIOR MICRODISCECTOMY AND FUSION EACH ADDITIONAL LEVEL 84782 - CA ARTHRD ANT NTRBD MIN DSC EA ADDL INTERSPACE INSERTION OF INTERBODY BIOMECHANICAL DEVICE 22143 - CA INSJ BIOMCHN DEV INTERVERTEBRAL DSC SPC W/ARTHRD POSTERIOR LUMBAR FUSION 85482 - CA ARTHRODESIS POSTERIOR/PSTLAT TQ 1NTRSPC LUMBAR POSTERIOR OR POSTEROLATERAL FUSION EACH ADDITIONAL LEVEL 08723 - CA ARTHRODESIS PST/PSTLAT TQ 1NTRSPC EA ADDL NTRSPC POSTERIOR LUMBAR LAMINECTOMY FACETECTOMY FORAMINOTOMY AND DECOMPRESSION 39033 - CA AGUILLON FACETECTOMY & FORAMOTOMY 1 VRT SGM LUMBAR POSTERIOR CERVICAL/THORACIC/LUMBAR LAMINECTOMY FACETECTOMY FORAMINOTOMY AND DECOMPRESSION EACH ADDITIONAL 51085 - CA AGUILLON FACETECTOMY&FORAMOT 1 VRT SGM EA ADDL SGM POSTERIOR SPINAL INSTRUMENTATION 3 TO 6 LEVELS 65301 - CA POSTERIOR SEGMENTAL INSTRUMENTATION 3-6 VRT SEG Surgeons * Guerda Page V - Primary * Karol Pradhan - Assisting Procedure Summary Anesthesia: General ASA: III Estimated Blood Loss: 1200 mL Drains: Closed/Suction Drain Inferior Back Accordion 10 Fr. (Active) Urethral Catheter Straight-tip 16 Fr. (Active) Implants Type Name Action Serial No. Graft KIT INFUSE BONE GRAFT XL 8.0CC - [id number] Used, Not Implanted Spinal Hardware CAGE SPINE LUMBAR 14X17.5X23MM - [id number] Implanted Spinal Hardware SCREW SPINAL [id number] - [id number] Implanted Spinal Hardware SCREW SET TI SPINAL BREAK OFF - [id number] Implanted Spinal Hardware JODY SPNL CROMALLOY BENT 5.5X55 - [id number] Wasted Spinal Hardware JODY SPNL CROMALLOY BENT 5.5X60 - [id number] Implanted Staff: Certified Midwife: Jewel Shaw RN; Conor Pinto RN Scrub [...] precautions -NV checks q4 hrs -[facility]th[facility] [id number] NotePatient: Azar Triplett Procedure Information Date/Time: 06/19/23 0730 Procedures: ANTERIOR LUMBAR INTERBODY FUSION LUMBAR 4/5-SACRAL 1, INTERBODY DEVICE BONE MORPHOGENETIC PROTEIN, POSTERIOR FUSION LUMBAR 4/5-SACRAL 1, DECOMPRESSION LUMBAR 2-1-4-4-5-SACRAL 1, PEDICLE INSTRUMENTATION AND LOCAL BONE (Back) ANTERIOR MICRODISCECTOMY AND FUSION EACH ADDITIONAL LEVEL (Back) INSERTION OF INTERBODY BIOMECHANICAL DEVICE (Back) POSTERIOR LUMBAR FUSION (Back) POSTERIOR OR POSTEROLATERAL FUSION EACH ADDITIONAL LEVEL (Back) POSTERIOR LUMBAR LAMINECTOMY FACETECTOMY FORAMINOTOMY AND DECOMPRESSION (Spine Lumbar) POSTERIOR CERVICAL/THORACIC/LUMBAR LAMINECTOMY FACETECTOMY FORAMINOTOMY AND DECOMPRESSION EACH ADDITIONAL (Back) POSTERIOR SPINAL INSTRUMENTATION 3 TO 6 LEVELS (Back) Location: [facility] OR [address] [place] [address] Operating Room Surgeons: Guerda Alvarez MD Past Medical History: Past Medical History: No date: Abnormal EKG No date: Back pain Comment: recent steroid [id number] No date: Cardiac murmur Comment: echo 06-14-23 [...] results found for this or any previous visit.[facility] 06-18-2023 NoteComprehensive Pre Surgical History and Physical Name: Azar Triplett : 1945 (Age-77 y.o.) Date of Service: Pt seen/examined on 06/18/2023 Procedure Information Date/Time: 06/19/23 0730 Procedures: ANTERIOR LUMBAR INTERBODY FUSION LUMBAR 4/5-SACRAL 1, INTERBODY DEVICE BONE MORPHOGENETIC PROTEIN, POSTERIOR FUSION LUMBAR 4/5-SACRAL 1, DECOMPRESSION LUMBAR 2-0-6-4-5-SACRAL 1, PEDICLE INSTRUMENTATION AND LOCAL BONE (Back) ANTERIOR MICRODISCECTOMY AND FUSION EACH ADDITIONAL LEVEL (Back) INSERTION OF INTERBODY BIOMECHANICAL DEVICE (Back) POSTERIOR LUMBAR FUSION (Back) POSTERIOR OR POSTEROLATERAL FUSION EACH ADDITIONAL LEVEL (Back) POSTERIOR LUMBAR LAMINECTOMY FACETECTOMY FORAMINOTOMY AND DECOMPRESSION (Spine Lumbar) POSTERIOR CERVICAL/THORACIC/LUMBAR LAMINECTOMY FACETECTOMY FORAMINOTOMY AND DECOMPRESSION EACH ADDITIONAL (Back) POSTERIOR SPINAL INSTRUMENTATION 3 TO 6 LEVELS (Back) Location: [facility] OR [address] [place] [address] Operating Room Surgeons: Guerda Alvarez MD Chief [...] the above procedure. ? Denies history of MS, CAD, TIA, CVA Past Medical History: Past Medical History: No date: Abnormal EKG No date: Back pain Comment: recent steroid [id number] No date: Cardiac murmur Comment: echo 06-14-23 [...] nausea and vomiti (more content not included)... [facility]2024 NoteComprehensive Pre Surgical History and Physical Name: Azar Triplett : 1945 (Age-77 y.o.) Date of Service: Pt seen/examined on 06/18/2023 Procedure Information Date/Time: 06/19/23 0172 Procedures: ANTERIOR LUMBAR INTERBODY FUSION LUMBAR 4/5-SACRAL 1, INTERBODY DEVICE BONE MORPHOGENETIC PROTEIN, POSTERIOR FUSION LUMBAR 4/5-SACRAL 1, DECOMPRESSION LUMBAR 8-0-9-4-5-SACRAL 1, PEDICLE INSTRUMENTATION AND LOCAL BONE (Back) ANTERIOR MICRODISCECTOMY AND FUSION EACH ADDITIONAL LEVEL (Back) INSERTION OF INTERBODY BIOMECHANICAL DEVICE (Back) POSTERIOR LUMBAR FUSION (Back) POSTERIOR OR POSTEROLATERAL FUSION EACH ADDITIONAL LEVEL (Back) POSTERIOR LUMBAR LAMINECTOMY FACETECTOMY FORAMINOTOMY AND DECOMPRESSION (Spine Lumbar) POSTERIOR CERVICAL/THORACIC/LUMBAR LAMINECTOMY FACETECTOMY FORAMINOTOMY AND DECOMPRESSION EACH ADDITIONAL (Back) POSTERIOR SPINAL INSTRUMENTATION 3 TO 6 LEVELS (Back) Location: [facility] OR [address] [place] [address] Operating Room Surgeons: Guerda Alvarez MD Chief [...] the above procedure. ? Denies history of MS, CAD, TIA, CVA Past Medical History: Past Medical History: No date: Abnormal EKG No date: Back pain Comment: recent steroid [id number] No date: Cardiac murmur Comment: echo 06-14-23 [...] nausea and vomiti (more content not included)... [facility]02-19-2024 History and physical note* MANDY Bonner - 06/18/2023 4:30 PM EST Images from the original note were not included. Comprehensive Pre Surgical History and Physical Name: Azar Triplett : 1945 (Age-77 y.o.) Date of Service: Pt seen/examined on 06/18/2023 Procedure Information Date/Time: 06/19/23 9730 Procedures: ANTERIOR LUMBAR INTERBODY FUSION LUMBAR 4/5-SACRAL 1, INTERBODY DEVICE BONE MORPHOGENETIC PROTEIN, POSTERIOR FUSION LUMBAR 4/5-SACRAL 1, DECOMPRESSION LUMBAR 1-4-7-4-5-SACRAL 1, PEDICLE INSTRUMENTATION AND LOCAL BONE (Back) ANTERIOR MICRODISCECTOMY AND FUSION EACH ADDITIONAL LEVEL (Back) INSERTION OF INTERBODY BIOMECHANICAL DEVICE (Back) POSTERIOR LUMBAR FUSION (Back) POSTERIOR OR POSTEROLATERAL FUSION EACH ADDITIONAL LEVEL (Back) POSTERIOR LUMBAR LAMINECTOMY FACETECTOMY FORAMINOTOMY AND DECOMPRESSION (Spine Lumbar) POSTERIOR CERVICAL/THORACIC/LUMBAR LAMINECTOMY FACETECTOMY FORAMINOTOMY AND DECOMPRESSION EACH ADDITIONAL (Back) POSTERIOR SPINAL INSTRUMENTATION 3 TO 6 LEVELS (Back) Location: [facility] OR Operating Room Surgeons: Guerda Alvarez [...] the above procedure. ? Denies history of MS, CAD, TIA, CVA Past Medical History: Past Medical History: No date: Abnormal EKG No date: Back pain Comment: recent steroid [id number] No date: Cardiac murmur Comment: echo 06-14-23 [...] MANDY Bonner Date: 06/18/2023 at 5:20 PM [id number] History and physical note* MANDY Bonner - [...] POSTERIOR FUSION LUMBAR 4/5-SACRAL 1, DECOMPRESSION LUMBAR 1-9-4-4-5-SACRAL 1, PEDICLE INSTRUMENTATION AND LOCAL BONE (Back) ANTERIOR MICRODISCECTOMY AND FUSION EACH ADDITIONAL LEVEL (Back) INSERTION OF INTERBODY BIOMECHANICAL DEVICE (Back) POSTERIOR LUMBAR FUSION (Back) POSTERIOR OR POSTEROLATERAL FUSION EACH ADDITIONAL LEVEL (Back) POSTERIOR LUMBAR LAMINECTOMY FACETECTOMY FORAMINOTOMY AND DECOMPRESSION (Spine Lumbar) POSTERIOR CERVICAL/THORACIC/LUMBAR LAMINECTOMY FACETECTOMY FORAMINOTOMY AND DECOMPRESSION EACH ADDITIONAL (Back) POSTERIOR SPINAL INSTRUMENTATION 3 TO 6 LEVELS (Back) Location: [facility] OR [address] [place] [address] Operating Room Surgeons: Guerda Alvarez MD Chief [...] the above procedure. ? Denies history of MS, CAD, TIA, CVA Past Medical History: Past Medical History: No date: Abnormal EKG No date: Back pain Comment: recent steroid [id number] No date: Cardiac murmur Comment: echo 06-14-23 [...] 06/18/2023 at 5:20 PM documented in this [facility]02-16-2024 Telephone encounter Note* Telephone Encounter - Wendy Mariee MA - 06/15/2023 9:01 AM EST FYI-Per Dr. Page's office this case has been changed to be done at [facility] on 06/19/23. Start time will be at 7:30 am but you can come after your meeting that morning. [id number] Miscellaneous Notes* Telephone Encounter - Wendy Mariee MA - 06/15/2023 9:01 AM EST FYI-Per Dr. Page's office this case has been changed to be done at [facility] on 06/19/23. Start time will be [...] SURGERY: 06/19/2023 AT 9:00 AM AUTH #: [facility] PER JULY WITH DR. PAGE'S OFFICE. documented in this [facility]02-15-2024 History of Present illness Narrative* Luis [...] upon the above evaluation and The 2014 [place] [employer]/[place] [employer] (ACC/AHA) Guideline on Perioperative CardiovascularEvaluation and Management for noncardiac surgery, and calculation of the Revised Cardiac Risk Index(RCRI) score, the patient is at intermediate risk for an adverse cardiovascular event (ie, myocardial ischemia, myocardial infarction [MS], heart failure, arrhythmia, stroke, or cardiac ) [...] as documented above and communicating with other [facility] professionals. I have discussed the results of laboratory, radiology, and cardiology studies with the patient and their family/caregiver. [facility] Work Phone: [phone]) 384-881601-30-2024 Telephone encounter Note* Telephone Encounter - Wendy Mariee MA - 05/29/2023 9:23 AM EST No auth needed. [id number] Miscellaneous Notes* Telephone Encounter - Wendy Mariee MA - 05/29/2023 9:23 AM EST No auth needed. * Telephone Encounter - Wendy Mariee MA - 04/24/2023 8:06 AM EST SURGERY: [facility] FOR DR. PAGE OPEN & CLOSE [place] L4-5-S1 DATE OF SURGERY: 06/19/2023 AT 9:00 AM AUTH #: [facility] PER JULY WITH DR. PAGE'S OFFICE. documented in this [facility] [id number] Telephone encounter Note* Telephone Encounter - Wendy Mariee MA - 04/24/2023 8:06 AM EST SURGERY: CCOC FOR DR. PAGE OPEN & CLOSE [place] L4-5-S1 DATE OF SURGERY: 06/19/2023 AT 9:00 AM AUTH #: [facility] PER JULY WITH DR. PAGE'S OFFICE. [id number] Evaluation + Plan note Future Scheduled Tests Radiology* MRI Spine Lumbar w/ + w/o Contrast 03/29/23 [facility] 04-17-2022 Hospital Discharge instructions Patient Education 08/14/2021 [...] nausea, vomiting, and vertigo, you may use zzlu-ykj-gtyupgu motion sickness medicine. Examples of thisinclude meclizine [...] healthcare provider Fast heart rate Chest pain [id number] [employer]. [address] [place] [address], [place] [address]. All rights reserved. This information is not intended as a substitute for professional medical care. Always follow yourhealthcare professional's instructions. Follow Up Care 08/14/2021 01:16:15 With:CASSY THOMPSON DO Address: When:2-4 days With:SEFERINO HERNANDEZ MD Address:Unknown When:2-4 days [facility] 11-05-2021 NotePatient Outreach (NETNAV) AZAR TRIPLETT ([id number]) 1945 M Date Time Provider Department 03/04/21 [...] future healthcare decisions with a power of commercial litigation attorney, living will, or advance directives? No. Please bring a copy to your next appointment or email to [email or web address] Referrals: N/A Message Sent to Practice: NO Navigation Signature: Yosef Parks Population Health Navigator March 04, 2021 11:11 AM Allergies As of Date: 03/04/2021 (No Known Allergies) Date Reviewed: 02/12/2020 Reviewed by: Terri ([facility]) LAUREN Jefferson - Fully Assessed Reason for [...] Status:Closed by TO POPULATION HEALTH NAVIGATORYOSEF on 03/04/21[facility]11-05-2021 NoteHNO ID: [id number] Author: Yosef [facility] Service: ? [...] future healthcare decisions with a power of commercial litigation attorney, living will, or advance directives? No. Please bring a copy to your next appointment or email to Referrals: N/A Message Sent to Practice: NO Navigation Signature: Yosef Parks Population Health Navigator March 04, 2021 11:11 [facility]06-21-2021 NotePatient Outreach ([facility]) AZAR TRIPLETT ([id number]) 1945 M Date Time Provider Department 10/18/20 [...] Allergies) Date Reviewed: 02/12/2020 Reviewed by: Terri [facility]) LAUREN Jefferson - Fully Assessed Reason for [...] 02/24/2020 Encounter Status:Closed by ZOILA BREWER on 10/18/20[facility]06-21-2021 NoteHNO ID: [id number] Author: Zoila James Service: ? Author Type: [...] : Zoila James October 18, 2020 11:41 [facility] No data available for this section [facility] Evaluation + Plan note Future Appointments Appointment Date:11/02/2022 10:30:00 AM Scheduled Provider:SEFERINO HERNANDEZ MD Location:[facility] Appointment Type:[facility] Evalufetpp note* Diagnosis Onset Date Resolution Status Spinal stenosis at L4-L5 level [facility] Work Phone: Evaluation note* Diagnosis PVC (premature [...] ischemic heart disease documented in [facility] Work Phone: Evaluation note* Diagnosis Abnormal EKG Nonspecific abnormal electrocardiogram (ECG) (EKG) Cardiac murmur, unspecified documented in this encounter [facility] Work Phone: Evaluation note* Diagnosis Spondylolisthesis of lumbosacral region- Primary Spondylolisthesis of lumbosacral region [facility] encounter [facility]* Diagnosis Nonrheumatic aortic valve stenosis documented in this encounter [facility] Work Phone: Evaluation note* Diagnosis Aortic valve disease- Primary Aortic valve disorders documented in this encounter [facility] Work Phone: Evaluation note* Diagnosis Nonrheumatic aortic valve stenosis documented in this encounter [facility] Work Phone: Evaluation note* Diagnosis Coronary artery disease involving [place] coronary artery of [place] heart without angina pectoris- Primary Cardiomyopathy, idiopathic (Multi) Other primary cardiomyopathies Nonrheumatic aortic valve stenosis Single subsegmental pulmonary embolism without acute cor pulmonale (Multi) documented in this encounter [facility] Work Phone: Evaluation note* Diagnosis Ischemic cardiomyopathy- Primary Other specified forms of chronic ischemic heart disease 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, idiopathic (Multi) Other primary cardiomyopathies Nonrheumatic aortic valve stenosis Single subsegmental pulmonary embolism without acute cor pulmonale PAF (paroxysmal atrial fibrillation) (Multi) Atrial fibrillation documented in this encounter [facility] Work Phone: Evaluation note* Diagnosis 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, idiopathic (Multi) Other primary cardiomyopathies Nonrheumatic aortic valve stenosis Single subsegmental pulmonary embolism without acute cor pulmonale documented in this encounter [facility] Work Phone: Evaluation note* Diagnosis PAF (paroxysmal atrial fibrillation) (Multi) Atrial fibrillation documented in this encounter [facility] Work Phone: Evaluation note* Diagnosis 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, idiopathic (Multi) Other primary cardiomyopathies Nonrheumatic aortic valve stenosis Single subsegmental pulmonary embolism without acute cor pulmonale Ischemic cardiomyopathy Other specified forms of chronic ischemic heart disease PAF (paroxysmal atrial fibrillation) (Multi) Atrial fibrillation documented in this encounter [facility] Work Phone: Hospital Discharge instructions No data available for this section [facility] Progress note No data available for this section [facility] Reason for referral (narrative)* Consultation (Routine) - Authorized Specialty Diagnoses / Procedures Referred By Contac t Referred To Contact Cardiology Diagnoses PVC (premature ventricular contraction) Preoperative cardiovascular examination Essential hypertension Diabetes mellitus type II, non insulin dependent (CMS/HCC) Abnormal EKG Ischemic cardiomyopathy Procedures Follow Up In Cardiology Lius Donahue MD [address] [place] [address] Referral ID Status Reason Start Date Expiration Date V isits Requested Visits Authorized [id number] Authorized 06/14/2023 06/13/2024 1 1 [facility] Work Phone: Reason for visit Narrative* Auth/Cert (Routine) Specialty Diagnoses / Procedures Referred By Finn aguayo Referred To Contact Diagnoses Atherosclerotic heart disease of [place] coronary artery without angina pectoris Cardiomyopathy, unspecified Nonrheumatic aortic (valve) stenosis Single subsegmental thrombotic pulmonary embolism without acute cor pulmonale Procedures NO PRE-CERT NEEDED FOR [facility] Clarita [place] [address] [place] [address] Phone: tel: fax: Referral ID Status Reason Start Date Expiration Date Visits Re quested Visits Authorized [id number] 1 1 [facility] Work Phone: Summary Purpose Family History No Family History Records Found Relationship Condition Age at Onset Recorded Date/T dave Not Specified Family history of myocardial infarction Unknown Advance Directives No Advanced Directives Records Found Advance Directive Response Recorded Date/ Time Living Will No April 25 023 2:30pm Power of Business Writer No April 25, 2023 2:30pm Latest Code [...] Contact Cardiology Diagnoses 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, idiopathic (Multi) Nonrheumatic aortic valve stenosis Single subsegmental pulmonary embolism without acute cor pulmonale (Multi) Procedures Transthoracic echo (TTE) complete CA ECHO TTHRC R-T 2D W/WOM-MODE COMPL SPEC&COLR D Luis Donahue MD [address] [place] [address] Referral ID Status Reason Start Date Expiration Date Visits Requested Visits Authorized [id number] Authorized Perform Procedure 09/04/2023 09/03/2024 1 1 Specialty Diagnoses / Procedures Referred By Finn aguayo Referred To Contact Cardiology Diagnoses 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, idiopathic (Multi) Nonrheumatic aortic valve stenosis Single subsegmental pulmonary embolism without acute cor pulmonale (Multi) Procedures Follow Up In Cardiology Luis Donahue MD [address] [place] [address] Referral ID Status Reason Start Date Expiration Date V isits Requested Visits Authorized [id number] Authorized 09/04/2023 09/03/2024 1 1 Specialty Diagnoses / Procedures Referred By Contac t Referred To Contact Cardiology Diagnoses Nonrheumatic aortic valve stenosis Procedures Echocardiogram Stress Test Echocardiogram Stress Test Echocardiogram Stress Test CA ECHO TTHRC R-T 2D W/WO M-MODE COMPLETE REST&ST Luis Donahue MD [address] [place] [place] [address] Referral ID Status Reason Start Date Expiration Date Visits Requested Visits Authorized [id number] Authorized Perform Procedure 08/09/2023 08/08/2024 1 1 Specialty Diagnoses / Procedures Referred By Contac t Referred To Contact Radiology Diagnoses Nonrheumatic aortic valve stenosis Procedures CT TAVR full contrast chest abdomen pelvis Lore Marques, [facility] [address] [place] [address] Referral ID Status Reason Start Date Expiration Date Visits Requested Visits Authorized [id number] Authorized Perform Procedure 07/19/2023 07/18/2024 1 1 Specialty Diagnoses / Procedures Referred By Contac t Referred To Contact Cardiology Diagnoses Abnormal EKG Procedures Transthoracic Echo (TTE) Complete CA ECHO TTHRC R-T 2D W/WOM-MODE COMPL SPEC&COLR D Luis Donahue MD [address] [place] [place] [address] u Nelly Cr Nonv1 [address] [place], [place] [address] [place] [address] Referral ID Status Reason Start Date Expiration Date Visits Requested Visits Authorized [id number] Authorized Perform Procedure 06/06/2023 06/05/2024 1 1 Additional Source Comments (unrecognized sect ion and content) No Status Records FoundNo Status Records FoundNo Status Records FoundNo Status Records FoundNo Status Records FoundNo Status Records FoundNo Status Records Found INFORMATION SOURCE (unrecogn ized section and content) DATE CREATED AUTHOR 06/20/2021 [facility] DATE CREATED AUTHOR AUTHOR'S ORGANIZ ATION 05/12/2023 [facility] DATE CREATED AUTHOR AUTHOR'S ORGANIZ ATION 07/17/2023 [facility] DATE CREATED AUTHOR AUTHOR'S ORGANIZ ATION 07/21/2023 [facility] ([place]) DATE CREATED AUTHOR AUTHOR'S ORGANIZ ATION 09/07/2023 [facility] DATE CREATED AUTHOR AUTHOR'S ORGANIZ ATION 03/11/2024 [facility] DATE CREATED AUTHOR AUTHOR'S ORGANIZ ATION 10/09/2024 [facility] Care Team (unrecognized sect ion and content) [...] Seferino Hernandez MD Primary Care Provider Active Clinical Coordinator Relationship Specialty Start Date End Date Seferino Hernandez [address] [place] [address] PCP - General Family Medicine 04/24/23 Guerda Page MD [address] [place] [address] Orthopedic Surgery 04/24/23 Clinical Coordinator Relationship Specialty Start Date End Date Seferino Hernandez MD [address] [place] [address] PCP - General Family Medicine 06/07/23 Clinical Coordinator Relationship Specialty Start Date End Date Seferino Hernandez MD [address] [place] [address] PCP - General Family Medicine 06/07/23 Clinical Coordinator Relationship Specialty Start Date End Date Seferino Hernandez [address] [place] [address] PCP - General Family Medicine 04/24/23 Guerda Page MD [address] [place] [address] Orthopedic Surgery 04/24/23 Clinical Coordinator Relationship Specialty Start Date End Date Seferino Hernandez [address] [place] [address] PCP - General Family Medicine 04/24/23 Guerda Page MD [address] [place] [address] Orthopedic Surgery 04/24/23 Clinical Coordinator Relationship Specialty Start Date End Date Seferino Hernandez MD [address] [place] [address] PCP - General Family Medicine 06/07/23 Clinical Coordinator Relationship Specialty Start Date End Date Seferino Hernandez MD [address] [place] [address] PCP - General Family Medicine 06/07/23 Clinical Coordinator Relationship Specialty Start Date End Date Seferino Hernandez MD [address] [place] [address] PCP - General Family Medicine 08/30/23 Clinical Coordinator Relationship Specialty Start Date End Date Seferino Hernandez MD [address] [place] [address] PCP - General Family Medicine 08/30/23 Clinical Coordinator Relationship Specialty Start Date End Date Seferino Hernandez MD [address] [place] [address] PCP - General Family Medicine 08/30/23 Clinical Coordinator Relationship Specialty Start Date End Date Seferino Hernandez MD [address] [place] [address] PCP - General Family Medicine 08/30/23 Clinical Coordinator Relationship Specialty Start Date End Date Seferino Hernandez MD [address] [place] [address] PCP - General Family Medicine 08/30/23 Goals (unrecognized section and content) Goals may be documented in a n alternate section Reason for Visit (unrecogniz ed section and content) Reason Comments Surgery Scheduling 06/19/2023 Reason Comments Pre-op Clearance Specialty Diagnoses / Procedures Referred By Contac t Referred To Contact Cardiology Diagnoses Abnormal EKG Procedures Transthoracic Echo (TTE) Complete CA ECHO TTHRC R-T 2D W/WOM-MODE COMPL SPEC&COLR D Luis Donahue MD [address] [place] [address] u Nelly Cr Nonv1 [address] [place] [address] Referral ID Status Reason Start Date Expiration Date Visits Requested Visits Authorized [id number] Authorized Perform Procedure 06/06/2023 06/05/2024 1 1 Specialty Diagnoses / Procedures Referred By Contjunior t Referred To Contact Diagnoses Spondylolisthesis, lumbosacral region Spondylolisthesis, lumbosacral region [M43.17] Procedures CA ARTHRD ANT INTERBODY MIN DSC LUMBAR CA ARTHRD ANT NTRBD MIN DSC EA ADDL INTERSPACE CA INSJ BIOMCHN DEV INTERVERTEBRAL DSC SPC W/ARTHRD CA ARTHRODESIS POSTERIOR/PSTLAT TQ 1NTRSPC LUMBAR CA ARTHRODESIS PST/PSTLAT TQ 1NTRSPC EA ADDL NTRSPC CA AGUILLON FACETECTOMY & FORAMOTOMY 1 VRT SGM LUMBAR CA AGUILLON FACETECTOMY&FORAMOT 1 VRT SGM EA ADDL SGM CA POSTERIOR SEGMENTAL INSTRUMENTATION 3-6 VRT SEG ANTERIOR LUMBAR INTERBODY FUSION LUMBAR 4/5-SACRAL 1, INTERBODY DEVICE BONE MORPHOGENETIC PROTEIN, POSTERIOR FUSION LUMBAR 4/5-SACRAL 1, DECOMPRESSION LUMBAR 6-3-7-4-5-SACRAL 1, PEDICLE INSTRUMENTATION AND LOCAL BONE ANTERIOR MICRODISCECTOMY AND FUSION EACH ADDITIONAL LEVEL INSERTION OF INTERBODY BIOMECHANICAL DEVICE POSTERIOR LUMBAR FUSION POSTERIOR OR POSTEROLATERAL FUSION EACH ADDITIONAL LEVEL POSTERIOR LUMBAR LAMINECTOMY FACETECTOMY FORAMINOTOMY AND DECOMPRESSION POSTERIOR CERVICAL/THORACIC/LUMBAR LAMINECTOMY FACETECTOMY FORAMINOTOMY AND DECOMPRESSION EACH ADDITIONAL POSTERIOR SPINAL INSTRUMENTATION 3 TO 6 LEVELS Guerda Page MD [address] [place] [address] [facility] Main Or [address] [place] [address] Referral ID Status Reason Start Date Expiration Date Visits Re quested Visits Authorized [id number] 1 1 Specialty Diagnoses / Procedures Referred By Contac t Referred To Contact Diagnoses NO PRE-CERT NEEDED FOR [facility]. Procedures NO PRE-CERT NEEDED FOR [facility]. [id number] [place] [address] Referral ID Status Reason Start Date Expiration Date Visits Re quested Visits Authorized [id number] 1 1 Specialty Diagnoses / Procedures Referred By Contac t Referred To Contact Diagnoses Nonrheumatic aortic (valve) stenosis Procedures NO PRE-CERT NEEDED FOR [facility] [address] [place] [address] Referral ID Status Reason Start Date Expiration Date Visits Re quested Visits Authorized [id number] 1 1 Reason Comments Cardiomyopathy Reason Comments Valve Disorder Specialty Diagnoses / Procedures Referred By Finn aguayo Referred To Contact Diagnoses Atherosclerotic heart disease of [place] coronary artery without angina pectoris Cardiomyopathy, unspecified Nonrheumatic aortic (valve) stenosis Single subsegmental thrombotic pulmonary embolism without acute cor pulmonale Procedures NO PRE-CERT NEEDED FOR [facility] Clarita Holden [address] [place] [address] [place] [address] Phone: tel: fax: Referral ID Status Reason Start Date Expiration Date Visits Re quested Visits Authorized [id number] 1 1 Reason Comments Coronary Artery Disease Specialty Diagnoses / Procedures Referred By Finn aguayo Referred To Contact Diagnoses NO PRE-CERT REQUIRED FOR [facility] Procedures NO PRE-CERT REQUIRED FOR [facility] [address] [place] [address] [place] [address] Phone: tel: fax: Referral ID Status Reason Start Date Expiration Date Visits Re quested Visits Authorized [id number] 1 1 Scheduled Active and Recently Administ [...] Carrie Hagen RN)[phone] (Not Given - Provider: Kailna Benavides RN - Reason: Other)[id number] (Not Given [...] Keara Mann RN) 0851 (Given - Provider: Deb Salas RN) hydroCHLOROthiazide (HYDRODiuril) tablet 12.5 mg [...] Comment: bgl [phone] 0853 (Given - Provider: Deb Salas RN)1223 (Given [...] sedation for opioid reversal - MUST notify superannuation clerk provider immediately after first dose, may give [...] BE BASED ON THE PRIMARY CLINICAL RECORDS. [employer] provides no warranty or guarantee of the accuracy or completeness of information in this document.
[2024-10-22 03:03] LABS: Procalcitonin 0.03 ng/mL (<=0.10)
[2024-10-22] MEDS: 0.9% Normal Saline (1000mL) 1,000 ML 100 ML IV (03:29)
[2024-10-22] MEDS: 0.9% Saline Lock 10 ML Syringe IV (03:31)
[2024-10-22 04:04] LABS: Absolute Lymphocyte Count 2.17 X10^3/uL (0.83-4.51); Absolute Neutrophil Count 3.8 X10^3/uL (2.0-7.7); Basophil# 0.05 X10^3/uL; Basophil% 0.7 % (0-1); Eosinophil# 0.19 X10^3/uL; Eosinophils% 2.7 % (0-5); Hematocrit 39.7 % (40-54); Hemoglobin 13.4 g/dL (13.0-16.5); Lymphocyte # 2.17 X10^3/ul (0.83-4.51); Lymphocyte % 31.4 % (19-41); Mean Corp Hgb Conc 33.8 g/dL (32-36); Mean Corpuscular Hgb 29.3 pg (27.0-32.0); Mean Corpuscular Volume 86.7 fL (80-94); Mean Platelet Vol. 11.1 fl (6.2-12.0); Monocyte% 10.1 % (0-10); NRBC Flagged by Analyzer 0 % (0-5); Neutrophil # 3.76 X10^3/uL (2.7-7.7); Neutrophil % 54.4 % (47-70); Platelet Count 128 K/mm3 (150-450); RBC Distribution Width CV 12.8 % (11.6-14.6); RBC Distribution Width SD 40.1 fl (35.1-43.9); Red Blood Count 4.58 M/mm3 (4.6-6.2); White Blood Count 6.9 K/mm3 (4.4-11.0)
[2024-10-22 04:47] LABS: Troponin T High Sens 4 HR 58 ng/L (<=22)
[2024-10-22 04:59] LABS: ALB/GLOB Ratio 1.6 RATIO (0.9-2.4); AST(SGOT) 25 U/L (<=37); Alanine Aminotransfer ALT/SGPT 18 U/L (<=46); Alkaline Phosphatase 62 U/L (40-129); Anion Gap 12 (5-15); BUN 19 mg/dL (4-19); BUN/Creat Ratio 19.6 RATIO (10-20); Calcium,Total 9.4 mg/dL (7.6-11.0); Carbon Dioxide 25.1 mmol/L (21.0-32.0); Chloride 103 mmol/L (98-108); Creatinine, Serum 0.96 mg/dL (0.70-1.20); EST Glomerular Filtration Rate 80 (>60); Estimated Creatinine Clearance 58.98 ml/min (50-250); Globulin 2.6 g/dL (2.2-4.2); Glucose 126 mg/dL (70-99); Potassium 3.1 mmol/L (3.3-5.1); Protein, Total 6.6 g/dL (5.9-8.4); Sodium Level 140 mmol/L (133-145); Total Bilirubin 0.65 mg/dL (0.00-1.30)
[2024-10-22] MEDS: Aspirin E.C. 81 MG Tablet PO (06:15)
[2024-10-22] MEDS: Lisinopril 20 MG Tablet PO ×2 (06:15→23:07)
[2024-10-22 06:21] LABS: Hemoglobin A1c 9.2 % (<=5.6)
[2024-10-22 07:26] LABS: Bedside Glucose 134 mg/dL (74-106)
[2024-10-22] MEDS: Potassium Chloride Oral Tablet 20 MEQ 40 MEQ PO (12:00)
[2024-10-22] MEDS: APIXABAN 5 MG TABLET PO ×2 (12:01→23:10)
[2024-10-22] MEDS: hydroCHLOROthiazide 25 MG Tablet PO (12:02)
[2024-10-22] MEDS: amLODIPine 5 MG Tablet PO (12:02)
--- NOTE | 2024-10-22 12:21 | STRESSREP ---
Stress Test Report Pharmacologic myocardial perfusion stress test. 79-year-old man with a history of chest pain Resting EKG demonstrates sinus rhythm with a rate of 60 bpm. Resting blood pressure is 148/90 mmHg. 0.4 mg of regadenoson was infused per usual protocol followed by rapid intravenous saline flush injection. Continuous EKG monitoring was performed. The maximum heart rate was 72 bpm which was 51% of max impacted heart rate the maximum workload was 1 metabolic equivalent. At rest there were no ST or T wave changes noted to suggest ischemia and at peak infusion nonspecific ST changes were noted which did not meet the criteria for ischemia. No clinical angina is noted. The final blood pressure was 130/68 mmHg. Myocardial perfusion protocol. 12.0 mCi of technetium 99m sestamibi was injected at rest. 0.4 mg of regadenoson was infused per usual protocol. At peak infusion 34.5 mCi of technetium 99m sestamibi was injected stress images were obtained stress and rest images were reconstructed and compared in the short axis vertical long and horizontal long axis. Gated images were also obtained. Perfusion SPECT analysis: Review of the stress images demonstrate normal uptake of tracer noted in all areas of the myocardium. There is however an area in the mid anterior to anterolateral wall with reduced perfusion. The resting images demonstrate a defect in a similar area with improvement in the periphery suggesting a previous infarct with chun-infarct ischemia. Gated SPECT analysis: The gated ejection fraction is 40%. 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 Mildly reduced ejection fraction.
--- NOTE | 2024-10-22 12:44 | ECHOD_ITS ---
Reason For Study Reason For Study: CHF Procedure This was a 2D Doppler, Color Flow transthoracic echocardiogram. Exam performed portable in patient room. Left Ventricle Normal LV size. Moderate concentric left ventricular hypertrophy. The left ventricular ejection fraction is 45 %. Stage 1 diastolic dysfunction. [place] : Severely Hypokinetic. Mid-Anterior : Hypokinetic. There are regional wall motion abnormalities as specified. Right Ventricle Normal RV size. Normal systolic function. Atria Normal left atrium. Normal right atrium. Mitral Valve Normal mitral valve. Tricuspid Valve Normal tricuspid valve. Mild tricuspid valve insufficiency. Pulmonary artery systolic pressure is 24 mmHg. Aortic Valve Trisinus/trileaflet aortic valve. Pulmonic Valve Normal pulmonic valve. Great Vessels Normal aortic root. The pulmonary artery is normal size. Inferior vena cava collapse with respiration. Pericardium/Pleural No pericardial effusion. MMode/2D Measurements & Calculations LVIDd: 4.8 cm IVSd: 1.5 cm LVOT diam: 2.0 cm LVIDs: 3.1 cm LVPWd: 1.3 cm LVOT area: 3.2 cm2 RVDd: 3.7 cm FS: 35.5 % Ao root diam: 3.7 cm LAV(MOD-bp): 66.1 ml LVAd ap4: 39.2 cm2 LAV(MOD-bp) Indexed: 35.1 ml/m2 LVLd ap4: 8.7 cm LAV(MOD-sp2): 62.0 ml EDV(MOD-sp4): 141.1 ml LAV(MOD-sp4): 65.8 ml EDV(sp4-el): 149.7 ml LVAs ap4: 28.1 cm2 LVLs ap4: 7.9 cm ESV(MOD-sp4): 85.1 ml ESV(sp4-el): 84.8 ml EF(MOD-sp4): 39.7 % EF(sp4-el): 43.3 % SV(MOD-sp4): 56.1 ml SV(sp4-el): 64.8 ml LA A4 area: 21.6 cm2 SI(MOD-sp4): 29.8 ml/m2 LA dimension(2D): 4.3 cm RA A4 area: 11.8 cm2 Time Measurements MV dec time: 0.26 sec Doppler Measurements & Calculations MV E max ruben: 73.4 cm/sec Lat Peak E' Ruben: 4.7 cm/sec Med Peak E' Ruben: 4.5 cm/sec MV A max ruben: 87.0 cm/sec E/E' lat: 15.6 E/E' med: 16.5 MV E/A: 0.84 MV V2 max: 102.7 cm/sec MV P1/2t max ruben: 77.8 cm/sec Ao V2 max: 231.9 cm/sec MV max P.2 mmHg MV P1/2t: 85.8 msec Ao max P.5 mmHg MV V2 mean: 49.4 cm/sec Ao V2 mean: 164.8 cm/sec MV mean P.2 mmHg MV dec slope: 265.4 cm/sec2 Ao mean P.3 mmHg MV V2 VTI: 31.8 cm MVA(P1/2t): 2.6 cm2 Ao V2 VTI: 63.0 cm AV (velocity ratio): 0.49 MVA(VTI): 3.1 cm2 NENA(I,D): 1.6 cm2 NENA(V,D): 1.4 cm2 LV V1 max: 104.3 cm/sec SV(LVOT): 99.0 ml TR max ruben: 222.3 cm/sec LV V1 max P.5 mmHg TR max P.8 mmHg LV V1 mean P.1 mmHg LV V1 mean: 81.8 cm/sec LV V1 VTI: 31.0 cm ECHO/Echo Complete Interpretation Summary Normal LV size. Moderate concentric left ventricular hypertrophy. The left ventricular ejection fraction is 45 %. Stage 1 diastolic dysfunction. There are regional wall motion abnormalities as specified. Ordering Physician: Adolfo Allan Performed By: Chas Bridges RCS
--- NOTE | 2024-10-22 12:44 | PN.HOSP_ITS ---
Reason for Visit Reason for Visit: Diagnoses Chest pain, unspecified (10/22/24) Other specified abnormal findings of blood chemistry (10/22/24) Objective Data Objective Data Vital Signs: Vital Signs Temp Pulse Resp BP Pulse Ox O2 Del Method 97.6 F L 63 18 183/107 H 95 Room Air 10/22/24 08:54 10/22/24 08:54 10/22/24 08:54 10/22/24 08:54 10/22/24 08:54 10/22/24 07:30 Oxygen Delivery Method Room Air Weight: 80.5 kg Body Mass Index (BMI) 29.5 Intake & Output: Intake and Output for Last 24 Hours 10/20/24 10/21/24 10/22/24 23:59 23:59 23:59 Intake Total 0 / 0 Balance 0 / 0 Lab / Micro Data 10/22/24 03:18 10/22/24 03:18 Labs: Laboratory Results - last 24 hr 10/21/24 22:53: WBC 8.3, RBC 4.46 L, Hgb 13.2, Hct 38.3 L, MCV 85.9, MCH 29.6, MCHC 34.5, RDW Std Deviation 39.8, RDW Coeff of Francy 12.6, Plt Count 141 L, MPV 11.5, Immature Gran % (Auto) 1.000 H, Neut % (Auto) 62.0, Lymph % (Auto) 25.4, [place] % (Auto) 9.5, Eos % (Auto) 1.6, Baso % (Auto) 0.5, Absolute Neuts (auto) 5.2, Absolute Lymphs (auto) 2.12, Nucleated RBC % 0, D-Dimer Quant (PE/DVT) 0.42, Sodium 139, Potassium 3.6, Chloride 102, Carbon Dioxide 24.7, Anion Gap 12, BUN 20 H, Creatinine 0.98, Estim Creat Clear Calc 57.98, Est GFR (MDRD) Non- Af 78, BUN/Creatinine Ratio 20.1 H, Glucose 146 H, Calcium 9.2, Troponin T High Sens 56 H* 10/22/24 00:53: Magnesium 2.1, Troponin T Hi Sens 2 Hr 46 H, Procalcitonin 0.03 10/22/24 03:18: WBC 6.9, RBC 4.58 L, Hgb 13.4, Hct 39.7 L, MCV 86.7, MCH 29.3, MCHC 33.8, RDW Std Deviation 40.1, RDW Coeff of Francy 12.8, Plt Count 128 L, MPV 11.1, Immature Gran % (Auto) 0.700, Neut % (Auto) 54.4, Lymph % (Auto) 31.4, M bhakti % (Auto) 10.1 H, Eos % (Auto) 2.7, Baso % (Auto) 0.7, Absolute Neuts (auto) 3.8, Absolute Lymphs (auto) 2.17, Nucleated RBC % 0, Sodium 140, Potassium 3.1 L , Chloride 103, Carbon Dioxide 25.1, Anion Gap 12, BUN 19, Creatinine 0.96, Estim Creat Clear Calc 58.98, Est GFR (MDRD) Non-Af 80, BUN/Creatinine Ratio 19.6, Glucose 126 H, Hemoglobin A1c 9.2 H, Calcium 9.4, Total Bilirubin 0.65, AST 25, ALT 18, Alkaline Phosphatase 62, Troponin T Hi Sens 4Hr 58 H*, Total Protein 6.6, Albumin 4.0, Globulin 2.6, Albumin/Globulin Ratio 1.6 10/22/24 06:14: POC Glucose 134 H Radiography Diagnostic Testing: Radiology Impression Chest X-Ray 10/21/24 23:40 IMPRESSION: Possible early right lower lobe infiltrates. Reading Location: [place] [address]
--- NOTE | 2024-10-22 12:46 | PCM.HOSP.N ---
Hospitalist Note Patient admitted early this morning for chest pain and elevated troponins concerning for NSTEMI type I. Was found to have an abnormal stress test with EF 40% and evidence of anterolateral infarct with chun-infarct ischemia present. Cardiology consulted. Will place patient on heparin drip and make him n.p.o. at midnight with plan for left heart cath tomorrow. Echo ordered. Full progress note to follow tomorrow.
[2024-10-22 12:50] LABS: Bedside Glucose 157 mg/dL (74-106)
[2024-10-22 13:46] LABS: Pro- Brain NATRIURETIC PEPTIDE 375 pg/mL (<=1800)
[2024-10-22] MEDS: Furosemide 20 MG/2 ML VIAL IV (14:54)
[2024-10-22] MEDS: Insulin Lispro 100 UNIT/ML INSULN.PEN SC ×2 (17:18→23:12)
[2024-10-22 17:30] LABS: Bedside Glucose 262 mg/dL (74-106)
--- NOTE | 2024-10-22 20:24 | CON.PCM.CA_ITS ---
Assessment & Plan Assessment/Plan (1) Chest pain: PLAN: Patient presents for chest discomfort. There are some features of coronary disease here he underwent stress testing which demonstrated previous infarct with chun-infarct ischemia and it appears that it is unchanged from before and aggressive medical therapy will be implemented. Should he develop more chest discomfort then we will consider invasive therapy. He has been given the choice of following up with his physician [facility] all with us up at the [facility]. (2) Aortic valve disease: PLAN: He does have moderate aortic stenosis by echocardiogram and we will continue to follow this serially. (3) CAD (coronary artery disease): PLAN: He has known triple-vessel disease status post angioplasty and stenting of the left anterior descending artery and the circumflex artery. The plan to be to continue him on the current medical therapy. I will suggest increasing his amlodipine to 10 mg, continuing carvedilol, continuing the statin (4) Hypertension: PLAN: His blood pressure is under suboptimal control. He will continue with the carvedilol 25 mg twice a day Increase lisinopril to 20 mg twice a day (5) HLD (hyperlipidemia): PLAN: High intensity statin will be instituted (6) History of venous thromboembolism: PLAN: He will continue with his Eliquis for his previous thromboembolism. He is actually around the 6-month jose and a decision has to be made as to whether he needs to be off all be continued indefinitely. Thank you for allowing me to participate in the care of your patient. Please don't hesitate to call if any issues arise. 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 He was seen in the emergency room and he was noted to be hypertensive initially and cardiac enzymes were drawn which were mildly elevated. There was however a flat pattern. There were nonspecific EKG changes noted but some T wave changes noted in 1 and aVL which appear to be new from before. He is a gentleman with a history of hypertension, chronic back disease, diabetes mellitus, valvular heart disease with moderate aortic stenosis and coronary artery disease. He had presented to [facility] in June 2019 for underwent a cardiac catheterization which demonstrated severe disease noted of the circumflex artery of 95% stenosis, the mid LAD of 80% stenosis, the right coronary artery of 60% stenosis and 70% stenosis of the posterolateral and posterior descending arteries. He underwent PCI and stenting of the circumflex artery and staged PCI of the left anterior descending artery. It appears that in February 2024 he ended up with another physician in the [facility] system and at that time underwent a dobutamine stress echocardiogram. It demonstrated mid anterior apical wall anterolateral wall and apical lateral abnormal segments with hypokinesis. No significant ischemia was noted and the patient was deemed to be stable to continue guideline directed medical therapy. He was also noted to have an incidental finding of a pulmonary embolism for which she was put on anticoagulation. He has not had any chest discomfort since being in the hospital. He underwent a stress test which demonstrated evidence of a previous anterolateral infarct with mild chun-infarct ischemia. Cardiology was called for further evaluation and management. [facility] Medical History (Updated 10/22/24 @ 20:[address] Husam Harman MD) History of venous thromboembolism CAD (coronary artery disease) HLD (hyperlipidemia) Spinal stenosis at L4-L5 level Low back pain Aortic valve disease Back pain Neck pain Hypertension Home Medications ?Medication ?Instructions ?Recorded ?Last Taken ?Type hydrochlorothiazide 25 mg tablet 25 mg PO DAILY Unknown History lisinopril 20 mg tablet 20 mg PO DAILY 05/13/15 Unkn own History glimepiride 4 mg tablet 4 mg PO DAILY 05/02/23 Unkno wn History amlodipine 5 mg tablet 5 mg PO DAILY 10/21/24 Unkno wn History apixaban 1 tab PO BID 10/21/24 Unknow n History atorvastatin 40 mg tablet 40 mg PO QHS 10/21/24 Unknow n History carvedilol 25 mg tablet 25 mg PO BID 10/21/24 Unknow n History Allergy/AdvReac Type Severity Reaction Status Date / Time No Known Allergies Allergy Verified 10/21/24 22:40 Family History Mother Family history of heart attack Heart disease CAD (coronary artery disease) Hypertension Father Family history of heart attack Heart disease CAD (coronary artery disease) Hypertension Surgical History Hx of heart artery stent History of cholecystectomy History of back surgery History of appendectomy History of hernia repair Social History household members: spouse Smoking Status: Never smoker alcohol intake: never substance use type: does not use ROS Constitutional Constitutional: Denies fever(s) or weight loss Eyes Eyes: Reports systems reviewed and no addt'l complaints, except as documented ENT HEENT: Reports systems reviewed and no addt'l complaints, except as documented Cardiovascular Cardiovascular: Reports chest pain at rest and chest pain with activity; Denies dyspnea at rest, dyspnea on exertion, edema, palpitations or paroxysmal nocturnal dyspnea Respiratory/Chest Respiratory/Chest: Denies dyspnea on exertion, productive cough, shortness of breath at rest or shortness of breath with exertion Gastrointestinal Gastrointestinal: Denies change in bowel habits, nausea, vomiting or weight changes Genitourinary Genitourinary: Denies difficulty urinating Musculoskeletal Musculoskeletal: Denies joint stiffness or muscle weakness Integumentary Integumentary: Denies lesions Neurologic Neurologic: Denies dizziness or syncope Psychiatric Psychiatric: Denies anxiety Endocrine Endocrinology: Denies excessive sweating or fatigue Hematologic/Lymphatic Hematologic/Lymphatic: Denies anemia Allergic/Immunologic Allergic/Immunologic: Denies seasonal rhinorrhea Physical Exam Const alert, oriented x3 and no apparent distress General Appearance: cooperative HEENT hearing grossly normal bilaterally Head and Scalp: atraumatic Eyes EOMs intact bilaterally Neck General: normal visual inspection Chest inspection of chest normal and palpation of chest normal Resp normal respiratory effort Auscultation: clear to auscultation bilaterally Cardio regular rate, regular rhythm, S1 normal heart sound and S2 normal heart sound Jugular Venous Distention: JVD Heart Sounds: murmur systolic II/ crescendo-decrescendo left sternal border GI normal to inspection, nondistended, normoactive bowel sounds Extremity normal capillary refill and no pedal edema Peripheral Pulses: Yes pulses 2+ throughout and femoral pulses present Skin no rashes or lesions noted Neuro oriented x3 and CN's II-XII intact bilaterally Psych Appearance: grossly normal and appropriate Risk Stratification Risk Stratification Applicable: Yes Age >/= 65: Yes >/= 3 CAD Risk Factors (HTN, HLD, DM, family hx of CAD, or current smoker): Yes Aspirin Use in the Past 7 Days: Yes Severe Angina (>/= episodes in 24 hours): No EKG ST Changes >/= 0.5mm: No Positive Cardiac Marker: Yes KIEL Risk Stratification Score: 4 KIEL % Risk: 20% Risk Objective Data Vital Signs: Vital Signs Temp Pulse Resp BP Pulse Ox O2 Del Method 97.4 F L 64 18 181/68 H 99 Room Air 10/22/24 14:38 10/22/24 14:38 10/22/24 14:38 10/22/24 14:38 10/22/24 14:38 10/22/24 14:38 Oxygen Delivery Method Room Air Weight: 177 lb 7.554 oz Body Mass Index (BMI) 29.5 Intake & Output: Intake and Output for Last 24 Hours 10/20/24 10/21/24 10/22/24 23:59 23:59 23:59 Intake Total 0 / 0 1000 / 1000 Balance 0 / 0 1000 / 1000 Lab / Micro Data 10/22/24 03:18 10/22/24 03:18 Labs: Laboratory Results - last 24 hr 10/21/24 22:53: WBC 8.3, RBC 4.46 L, Hgb 13.2, Hct 38.3 L, MCV 85.9, MCH 29.6, MCHC 34.5, RDW Std Deviation 39.8, RDW Coeff of Francy 12.6, Plt Count 141 L, MPV 11.5, Immature Gran % (Auto) 1.000 H, Neut % (Auto) 62.0, Lymph % (Auto) 25.4, [place] % (Auto) 9.5, Eos % (Auto) 1.6, Baso % (Auto) 0.5, Absolute Neuts (auto) 5.2, Absolute Lymphs (auto) 2.12, Nucleated RBC % 0, D-Dimer Quant (PE/DVT) 0.42, Sodium 139, Potassium 3.6, Chloride 102, Carbon Dioxide 24.7, Anion Gap 12, BUN 20 H, Creatinine 0.98, Estim Creat Clear Calc 57.98, Est GFR (MDRD) Non- Af 78, BUN/Creatinine Ratio 20.1 H, Glucose 146 H, Calcium 9.2, Troponin T High Sens 56 H* 10/22/24 00:53: Magnesium 2.1, Troponin T Hi Sens 2 Hr 46 H, Procalcitonin 0.03 10/22/24 03:18: WBC 6.9, RBC 4.58 L, Hgb 13.4, Hct 39.7 L, MCV 86.7, MCH 29.3, MCHC 33.8, RDW Std Deviation 40.1, RDW Coeff of Francy 12.8, Plt Count 128 L, MPV 11.1, Immature Gran % (Auto) 0.700, Neut % (Auto) 54.4, Lymph % (Auto) 31.4, M bhakti % (Auto) 10.1 H, Eos % (Auto) 2.7, Baso % (Auto) 0.7, Absolute Neuts (auto) 3.8, Absolute Lymphs (auto) 2.17, Nucleated RBC % 0, Sodium 140, Potassium 3.1 L , Chloride 103, Carbon Dioxide 25.1, Anion Gap 12, BUN 19, Creatinine 0.96, Estim Creat Clear Calc 58.98, Est GFR (MDRD) Non-Af 80, BUN/Creatinine Ratio 19.6, Glucose 126 H, Hemoglobin A1c 9.2 H, Calcium 9.4, Total Bilirubin 0.65, AST 25, ALT 18, Alkaline Phosphatase 62, Troponin T Hi Sens 4Hr 58 H*, NT pro BNP II 375, Total Protein 6.6, Albumin 4.0, Globulin 2.6, Albumin/Globulin Ratio 1.6 10/22/24 06:14: POC Glucose 134 H 10/22/24 12:33: POC Glucose 157 H 10/22/24 17:12: POC Glucose 262 H Cardiology Labs/Tests 10/21/24 22:53: WBC 8.3, RBC 4.46 L, Hgb 13.2, Hct 38.3 L, MCV 85.9, MCH 29.6, MCHC 34.5, Plt Count 141 L, MPV 11.5, Immature Gran % (Auto) 1.000 H, Neut % (Auto) 62.0, Lymph % (Auto) 25.4, [place] % (Auto) 9.5, Eos % (Auto) 1.6, Baso % (Auto) 0.5, Absolute Neuts (auto) 5.2, Nucleated RBC % 0, D-Dimer Quant (PE/DVT) 0.42, Sodium 139, Potassium 3.6, Chloride 102, Carbon Dioxide 24.7, Anion Gap 12, BUN 20 H, Creatinine 0.98, Est GFR (MDRD) Non-Af 78, BUN/Creatinine Ratio 20.1 H, Glucose 146 H, Calcium 9.2 10/22/24 00:53: Magnesium 2.1 10/22/24 03:18: WBC 6.9, RBC 4.58 L, Hgb 13.4, Hct 39.7 L, MCV 86.7, MCH 29.3, MCHC 33.8, Plt Count 128 L, MPV 11.1, Immature Gran % (Auto) 0.700, Neut % (Auto) 54.4, Lymph % (Auto) 31.4, [place] % (Auto) 10.1 H, Eos % (Auto) 2.7, Baso % (Auto) 0.7, Absolute Neuts (auto) 3.8, Nucleated RBC % 0, Sodium 140, Potassium 3.1 L, Chloride 103, Carbon Dioxide 25.1, Anion Gap 12, BUN 19, Creatinine 0.96, Est GFR (MDRD) Non-Af 80, BUN/Creatinine Ratio 19.6, Glucose 126 H, Hemoglobin A1c 9.2 H, Calcium 9.4, Total Bilirubin 0.65 Rhythm: EKG: ECHO: Stress Test: Cardiac Cath: PCI: CT Surgery: Holter monitor: EPS: PPM: CXR: Chest CT Scan: Radiography Diagnostic Testing: Radiology Impression Chest X-Ray 10/21/24 23:40 IMPRESSION: Possible early right lower lobe infiltrates. Reading Location: [place] [id number] Echocardiogram 10/22/24 12:44 Interpretation Summary Normal LV size. Moderate concentric left ventricular hypertrophy. The left ventricular ejection fraction is 45 %. Stage 1 diastolic dysfunction. There are regional wall motion abnormalities as specified. Ordering Physician: Adolfo Allan Performed By: Chas Bridges RCS
[2024-10-22] MEDS: Atorvastatin Calcium 40 MG Tablet PO (23:09)
[2024-10-23 00:04] LABS: Bedside Glucose 172 mg/dL (74-106)
[2024-10-23 03:00] VITALS: BP 161/85; PULSE 57; PULSE 60; RESP 15; TEMP 36.8; O2SAT 96
[2024-10-23 05:41] VITALS: BMI 29.0
[2024-10-23 06:40] LABS: Anion Gap 11 (5-15); BUN 17 mg/dL (4-19); BUN/Creat Ratio 15.8 RATIO (10-20); Carbon Dioxide 27.3 mmol/L (21.0-32.0); Chloride 99 mmol/L (98-108); Cholesterol 137 mg/dL (<=200); Creatinine, Serum 1.06 mg/dL (0.70-1.20); EST Glomerular Filtration Rate 71 (>60); Estimated Creatinine Clearance 53.02 ml/min (50-250); Glucose 171 mg/dL (70-99); High Density Lipoprotein 31 mg/dL; Low Density Lipoprotein Calc. 78 mg/dL; Potassium 3.4 mmol/L (3.3-5.1); Sodium Level 138 mmol/L (133-145); Triglycerides 140 mg/dL; Very Low Density Lipoprotein 28 mg/dL (5-40); cholesterol:hdl ratio screen 4.39
[2024-10-23 08:15] VITALS: BP 163/86; PULSE 65; RESP 16; TEMP 36.6; O2SAT 97
[2024-10-23] MEDS: amLODIPine 10 MG Tablet PO (08:19)
[2024-10-23] MEDS: Aspirin E.C. 81 MG Tablet PO (08:20)
[2024-10-23] MEDS: Lisinopril 20 MG Tablet PO (08:20)
[2024-10-23] MEDS: hydroCHLOROthiazide 25 MG Tablet PO (08:20)
[2024-10-23] MEDS: APIXABAN 5 MG TABLET PO (08:20)
[2024-10-23] MEDS: Insulin Lispro 100 UNIT/ML INSULN.PEN SC ×2 (08:21→11:38)
[2024-10-23 08:49] LABS: Bedside Glucose 177 mg/dL (74-106)
--- NOTE | 2024-10-23 09:01 | PCM.PN.CARD ---
Subjective Subjective Denies any complaints this morning. No chest pains or shortness of breath. Wishes to go home. Objective Data Vital Signs: Vital Signs Temp Pulse Resp BP Pulse Ox O2 Del Method 97.8 F 65 16 163/86 H 97 Room Air 10/23/24 08:15 10/23/24 08:15 10/23/24 08:15 10/23/24 08:15 10/23/24 08:15 10/23/24 08:37 Oxygen Delivery Method Room Air Weight: 174 lb 9.698 oz Body Mass Index (BMI) 29.0 Intake & Output: Intake and Output for Last 24 Hours 10/21/24 10/22/24 10/23/24 23:59 23:59 23:59 Intake Total 0 / 0 1000 / 1000 Balance 0 / 0 1000 / 1000 Lab / Micro Data 10/22/24 03:18 10/23/24 05:32 Labs: Laboratory Results - last 24 hr 10/22/24 03:18: NT pro BNP II 375 10/22/24 12:33: POC Glucose 157 H 10/22/24 17:12: POC Glucose 262 H 10/22/24 23:11: POC Glucose 172 H 10/23/24 05:32: Sodium 138, Potassium 3.4, Chloride 99, Carbon Dioxide 27.3, Anion Gap 11, BUN 17, Creatinine 1.06, Estim Creat Clear Calc 53.02, Est GFR (MDRD) Non-Af 71, BUN/Creatinine Ratio 15.8, Glucose 171 H, Calcium 9.0, Triglycerides 140, Cholesterol 137, LDL Cholesterol, Calc 78, VLDL Cholesterol 28, HDL Cholesterol 31 L, Cholesterol/HDL Ratio 4.39 10/23/24 08:14: POC Glucose 177 H Cardiology Labs/Tests 10/23/24 05:32: Sodium 138, Potassium 3.4, Chloride 99, Carbon Dioxide 27.3, Anion Gap 11, BUN 17, Creatinine 1.06, Est GFR (MDRD) Non-Af 71, BUN/Creatinine Ratio 15.8, Glucose 171 H, Calcium 9.0, Triglycerides 140, Cholesterol 137, VLDL Cholesterol 28, HDL Cholesterol 31 L, Cholesterol/HDL Ratio 4.39 Rhythm: EKG: ECHO: Stress Test: Cardiac Cath: PCI: CT Surgery: Holter monitor: EPS: PPM: CXR: Chest CT Scan: Radiography Diagnostic Testing: Radiology Impression Echocardiogram 10/22/24 12:44 Interpretation Summary Normal LV size. Moderate concentric left ventricular hypertrophy. The left ventricular ejection fraction is 45 %. Stage 1 diastolic dysfunction. There are regional wall motion abnormalities as specified. Ordering Physician: Adolfo Allan Performed By: Chas Bridges RCS Physical Exam Narrative Comfortable. No apparent distress. Heart sounds 1 and 2 noted. 3/6 systolic murmur at apex and base. Chest clear to auscultation bilaterally. No ankle edema. Assessment & Plan Assessment/Plan (1) Chest pain: PLAN: Resolved. 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 Continue medical management. (2) CAD (coronary artery disease): PLAN: History of PCI to the LAD. See #1 above. (3) Hypertension: PLAN: Carvedilol, lisinopril. (4) HLD (hyperlipidemia): PLAN: Atorvastatin. (5) Aortic valve stenosis: PLAN: Moderate aortic valve stenosis reported on echocardiogram. For periodic echo and clinical surveillance. 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 Continue beta-blockers and ACEI. Further follow-up as outpatient. PLAN: Plan Patient wishes to go home. May discharge home from a cardiac standpoint. Follow-up as outpatient.
--- NOTE | 2024-10-23 11:11 | DCINST_ITS ---
Discharge Instructions Diet Discharge Diet: Low fat / Low cholesterol and 2000 mg Sodium Diet DC O2, CPAP, BIPAP needs Home O2 Discharge instructions: No Dressing / Incision Discharge Activity: Return to Normal Activity Weight Bearing Status: Weight bearing as tolerated Dressing / Incision Call your doctor if you observe: Fever of 101 or Higher, Coldness, Increased Pain, Numbness or Tingling, Change in Color, Inability to urinate, Inability to have a bowel movement, Shortness of breath, Dizziness, Fainting spells, Swelling in the ankles, Chest pain, Prolonged hiccupping, Increased palpitations (irregular heartbeat) and Calf discomfort Follow Up Care When: IN 2 WEEKS Test Results: Test results from this visit will be discussed in further detail at your follow- up appointment, if applicable. Discharge Plan Admission Admit Date/Time: 10/22/24 00:57 Primary Reason for Your Visit: Atypical chest pain/ACS Attending Provider: Kayode Rocha Primary Care Provider: Care Physician,No Primary Consulting Providers: Raissa Hayes; Husam Harman; Adolfo Allan Instructions Additional Instructions / Restrictions: Follow-up with cardiology Discharge Orders/Prescriptions Prescriptions: New aspirin 81 mg Tablet,Delayed Release (Dr/Ec) 81 mg PO BREAKFAST 30 Days Qty: 30 2RF amlodipine 10 mg Tablet 10 mg PO DAILY 30 Days Qty: 30 2RF Continued glimepiride 4 mg tablet 4 mg PO DAILY lisinopril 20 MG tablet 20 mg PO DAILY hydrochlorothiazide 25 MG tablet 25 mg PO DAILY apixaban [Eliquis] 1 tab PO BID atorvastatin 40 mg tablet 40 mg PO QHS carvedilol 25 mg tablet 25 mg PO BID Discontinued amlodipine 5 mg tablet 5 mg PO DAILY Referrals / Follow Up: Epifanio Hernandez MD [Non-Staff] - Care Physician,No Primary [Primary Care Provider] - Disposition Disposition (needs filled in before D/C Order can be placed): Home, Self Care
--- NOTE | 2024-10-23 11:16 | PCM.DC.SUM ---
Providers Date of Admission: 10/22/24 Date of Discharge: 10/23/24 Primary Care Physician: Raysa Primary Care Phys Consultations 10/22/24 12:44 Consult: Cardiology Routine Consulting Provider: Husam Harman Reason for Consult: abnormal stress test, eval for cath EMERGENT Consult: No MD Notified: Yes Date Notified: 10/22/24 Time Notified: 12:58 Method of Notification: Text Reason For Visit: CHEST PAIN Diagnosis Discharge Diagnosis (1) Chest pain: Status: Acute Code(s): R07.9 - Chest pain, unspecified (2) CAD (coronary artery disease): Status: Acute Code(s): I25.10 - Atherosclerotic heart disease of [place] coronary artery without angina pectoris (3) Hypertension: Status: Chronic Code(s): I10 - Essential (primary) hypertension (4) HLD (hyperlipidemia): Status: Acute Code(s): E78.5 - Hyperlipidemia, unspecified (5) Aortic valve stenosis: Status: Acute Code(s): I35.0 - Nonrheumatic aortic (valve) stenosis (6) 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 Patient was admitted in PCU. Troponins were mildly elevated. Blood pressure was elevated 1. Atypical chest pain : Twelve-lead EKG shows nonspecific ST-T changes with T wave changes in 1 and aVL which appears to be new from before. In June 2019 his cardiac cath showed severe disease in circumflex 95% stenosis, mid LAD 80% stenosis RCA 60% stenosis and 70% stenosis of posterolateral and posterior descending artery. He underwent PCI and stenting of circumflex and staged PCI of LAD. He had dobutamine stress echo [facility] which showed mild anterior apical wall anterolateral wall and apical lateral hypokinesis and patient was started on guideline medical therapy at that time. Patient had a stress test which shows various infarct and chun-infarct ischemia unchanged from before. Aggressive guideline directed medical therapy implemented. 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 2. CAD status post PCI: Amlodipine dose increased to 10 mg daily. Continue carvedilol. Echo shows EF 45%, stage I diastolic dysfunction. Mild TR. PASP 24 mmHg. 3. Hypertension: Blood pressure not well-controlled. On carvedilol 25 mg twice daily and HCTZ 25 mg daily. Software Application Tester suggested to increase lisinopril to 20 mg twice daily but BP was 114/70 3 in the morning therefore lisinopril 10 mg daily continued 4. Dyslipidemia: High intensity statin 5. 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 Laboratory Results 10/22/24 17:12: POC Glucose 262 H 10/22/24 23:11: POC Glucose 172 H 10/23/24 05:32: Sodium 138, Potassium 3.4, Chloride 99, Carbon Dioxide 27.3, Anion Gap 11, BUN 17, Creatinine 1.06, Estim Creat Clear Calc 53.02, Est GFR (MDRD) Non-Af 71, BUN/Creatinine Ratio 15.8, Glucose 171 H, Calcium 9.0, Triglycerides 140, Cholesterol 137, LDL Cholesterol, Calc 78, VLDL Cholesterol 28, HDL Cholesterol 31 L, Cholesterol/HDL Ratio 4.39 10/23/24 08:14: POC Glucose 177 H 10/23/24 11:32: POC Glucose 308 H Medications at Discharge Home Medications hydrochlorothiazide 25 mg tablet 25 mg PO DAILY diuretic 05/13/15 glimepiride 4 mg tablet 4 mg PO DAILY diabetes 05/02/23 apixaban 1 tab PO BID blood thinner 10/21/24 atorvastatin 40 mg tablet 40 mg PO QHS cholesterol 10/21/24 carvedilol 25 mg tablet 25 mg PO BID blood pressure 10/21/24 amlodipine 10 mg tablet 10 mg PO DAILY 30 days #30 tabs 10/23/24 aspirin 81 mg tablet,delayed release 81 mg PO BREAKFAST 30 days #30 tabs 10/23/24 lisinopril 20 mg tablet 20 mg PO BID blood pressure 30 days #0 tabs 10/23/24 Physical Exam Narrative Seen and examined. Patient wants to go home. No acute symptoms General: Alert, Oriented x3, Cooperative HEENT: Atraumatic, PERRLA, EOMI, Normocephalic. Oral: No Gingival or Mucosal Lesions/ Ulcerations Neck: Supple, No JVD, Negative Carotid Bruits Chest wall/Lungs: Air entry diminished in bilateral lung bases. No crepitation/rhonchi. Small surgical scar jose over left posterior chest probably from cyst excision Cardiovascular: Regular rate and rhythm, Normal S1,S2, pansystolic murmur over cardiac apex. Abdomen: Bowel Sounds Present, Soft, Non Tender, Non-Distended : No dysuria. No renal angle tenderness. No suprapubic tenderness. Extremities: No edema, Capillary Refill Less than 3 Seconds Skin: No rashes, No breakdown Musculoskeletal: No Tenderness to Palpation of Joints or Extremities Neurological: Cranial nerves II-XII grossly intact, DTR 2+/4. No acute focal neurological deficit. Psych/Mental Status: Flat Weight / BMI Weight Weight: 174 lb 9.698 oz Body Mass Index (BMI) 29.0 ABG / Lab / Microbiology Data 10/22/24 03:18 10/23/24 05:32 Laboratory: Laboratory Results - last 24 hr 10/22/24 17:12: POC Glucose 262 H 10/22/24 23:11: POC Glucose 172 H 10/23/24 05:32: Sodium 138, Potassium 3.4, Chloride 99, Carbon Dioxide 27.3, Anion Gap 11, BUN 17, Creatinine 1.06, Estim Creat Clear Calc 53.02, Est GFR (MDRD) Non-Af 71, BUN/Creatinine Ratio 15.8, Glucose 171 H, Calcium 9.0, Triglycerides 140, Cholesterol 137, LDL Cholesterol, Calc 78, VLDL Cholesterol 28, HDL Cholesterol 31 L, Cholesterol/HDL Ratio 4.39 10/23/24 08:14: POC Glucose 177 H 10/23/24 11:32: POC Glucose 308 H Radiography Diagnostic Testing: Radiology Impression Echocardiogram 10/22/24 12:44 Interpretation Summary Normal LV size. Moderate concentric left ventricular hypertrophy. The left ventricular ejection fraction is 45 %. Stage 1 diastolic dysfunction. There are regional wall motion abnormalities as specified. Ordering Physician: Adolfo Allan Performed By: Chas Bridges RCS D/C Instructions Discharge Diet: Low fat / Low cholesterol and 2000 mg Sodium Diet Weight Bearing Status: Weight bearing as tolerated Call your doctor if you observe: Fever of 101 or Higher, Coldness, Increased Pain, Numbness or Tingling, Change in Color, Inability to urinate, Inability to have a bowel movement, Shortness of breath, Dizziness, Fainting spells, Swelling in the ankles, Chest pain, Prolonged hiccupping, Increased palpitations (irregular heartbeat) and Calf discomfort DC O2, CPAP, BIPAP Needs Home O2 Discharge instructions: No When: IN 2 WEEKS Meaningful Use Info Meaningful Use Meaningful Use Diagnoses (Choose all that apply): None applicable Ischemic Stroke Statin Dosing Therapy Reference: STATIN DOSE THERAPY REFERENCE: * Patients > 75 years receive moderate or high dose statin therapy. * Patients 75 years or YOUNGER should receive HIGH intensity statin dose unless contraindicated. You will be required to document reason for non-treatment if statin daily dose does not meet guidelines. HIGH DOSE STATIN THERAPY DAILY Atorvastatin > than or = to 40 mg Rosuvastatin > than or = to 20 mg Amlodipine + Atorvastatin > than or = to 2.5/40 mg Ezetimibe + Simvastatin 10/80 mg Simvastatin 80mg Discharge Plan Admission Admit Date/Time: 10/22/24 00:57 Primary Reason for Your Visit: Atypical chest pain/ACS Attending Provider: Kayode Rocha Primary Care Provider: Care Physician,No Primary Consulting Providers: Raissa Hayes; Husam Harman; Adolfo Allan Instructions Additional Instructions / Restrictions: Follow-up with cardiology Discharge Orders/Prescriptions Prescriptions: New aspirin 81 mg Tablet,Delayed Release (Dr/Ec) 81 mg PO BREAKFAST 30 Days Qty: 30 2RF amlodipine 10 mg Tablet 10 mg PO DAILY 30 Days Qty: 30 2RF Continued glimepiride 4 mg tablet 4 mg PO DAILY hydrochlorothiazide 25 MG tablet 25 mg PO DAILY apixaban [Eliquis] 1 tab PO BID atorvastatin 40 mg tablet 40 mg PO QHS carvedilol 25 mg tablet 25 mg PO BID Changed lisinopril 20 MG tablet 20 mg PO BID 30 Days Qty: 0 0RF Discontinued amlodipine 5 mg tablet 5 mg PO DAILY Referrals / Follow Up: Epifanio Hernandez MD [Non-Staff] - Care Physician,No Primary [Primary Care Provider] - Disposition Disposition (needs filled in before D/C Order can be placed): Home, Self Care Charges/Coding Addendum Addendum: Lisinopril dose increased to 20 mg twice daily. Patient had 20 mg in the morning yesterday and 20 mg in the night and blood pressure is much improved 114/73 therefore discharged on lisinopril 20 mg twice daily. Visit Charges Inpatient E&M: 18244 Disch Hosp >30min
[2024-10-23 11:32] VITALS: BP 114/73; PULSE 71; RESP 16; TEMP 36; O2SAT 97
--- NOTE | 2024-10-23 11:32 | CASEMGMT ---
Patient has order for discharge. RN CM in to discuss needs at discharge. Patient denies needs or help at discharge. Patient had no further questions or concerns.
[2024-10-23 11:57] LABS: Bedside Glucose 308 mg/dL (74-106)
== END 2024-10-23 11:15 | disposition home or self-care (01) ==
LOC: ED 10-22 01:18 → PCU 10-22 01:54
PROVIDERS: Hospitalist; Admitting Provider Family Medicine; Emergency Provider Emergency Medicine; Visit Provider Internal Medicine
DX: I25.10 Atherosclerotic heart disease of native coronary artery without angina pectoris (principal); I48.0 Paroxysmal atrial fibrillation; I26.93 Single subsegmental thrombotic pulmonary embolism without acute cor pulmonale; E11.65 Type 2 diabetes mellitus with hyperglycemia; I35.0 Nonrheumatic aortic (valve) stenosis; I25.5 Ischemic cardiomyopathy; E78.5 Hyperlipidemia, unspecified; Z86.718 Personal history of other venous thrombosis and embolism; Z79.84 Long term (current) use of oral hypoglycemic drugs; I10 Essential (primary) hypertension; R79.89 Other specified abnormal findings of blood chemistry; R94.39 Abnormal result of other cardiovascular function study; R11.0 Nausea; Z79.01 Long term (current) use of anticoagulants; Z79.899 Other long term (current) drug therapy; R06.02 Shortness of breath; R42 Dizziness and giddiness; R07.89 Other chest pain; D69.6 Thrombocytopenia, unspecified; Z66 Do not resuscitate
CPT/HCPCS: 36415; 71046; 78452; 80048; 80053; 80061; 82962; 83036; 83735; 83880; 84145; 84484; 85025; 85379; 93005; 93017; 93306; 96361; 96374; 99221; 99285; A9500; Q9957; A4216; G0378; J1938; J2785